=== PATIENT | male | born 1940 | race Caucasian/White ===

== ENCOUNTER 2020-02-05 13:13 | Outpatient (REF) | payer MEDICARE, SELFPAY ==
--- NOTE | 2020-02-05 | US_ITS ---
EXAMINATION: RIGHT and LEFT LOWER EXTREMITY VENOUS ULTRASOUND (Reflux Exam) CLINICAL INDICATION: leg pain and varicose veins. COMPARISON: None. TECHNIQUE: Color flow triplex imaging and compression Doppler was performed to evaluate both the deep and the superficial systems bilaterally. To evaluate the superficial system, the examination was performed in the upright position. Color-flow Doppler ultrasound and compression ultrasound were utilized. In addition, maneuvers were utilized to demonstrate reflux. FINDINGS: 1. DEEP VENOUS ULTRASOUND OF THE RIGHT LOWER EXTREMITY: Respiratory variation, normal compression and augmented flow are noted in the right common femoral vein as well as the right popliteal vein and there is no evidence of deep venous thrombosis at these locations. There is no evidence of reflux in the deep system in either the common femoral vein or the popliteal vein. There is no evidence of a Moss's cyst. 2. SUPERFICIAL ULTRASOUND WITH DOPPLER OF RIGHT LOWER EXTREMITY: The right great saphenous vein at the saphenofemoral junction measures 7 mm, at the mid thigh 2 mm, [id number] 2 mm, [id number] 2 mm, at mid calf 1 mm and at the ankle measures 4 mm. There is right greater saphenous vein reflux measuring greater than 3.5 seconds in the proximal thigh, 1.5 seconds above the knee and greater than 3.5 seconds at the ankle. There is an accessory lateral greater saphenous vein that measures 2 mm and does not demonstrate reflux. The right small saphenous vein measures 2-3 mm and shows no reflux. There is a audiometric technician in the mid calf that measures 3 mm and demonstrates 1.7 second reflux. There is a varicosity in the proximal 5 that measures 4 mm and demonstrates greater than 3.5 second reflux. There is a varicosity in the proximal calf that measures 7 mm and demonstrates 2.2 seconds reflux. 3. DEEP VENOUS ULTRASOUND OF THE LEFT LOWER EXTREMITY: Respiratory variation, normal compression and augmented flow are noted in the left common femoral vein as well as the left popliteal vein and there is no evidence of deep venous thrombosis at these locations. There is no evidence of reflux in the deep system in either the common femoral vein or the popliteal vein. . There is no evidence of a Moss's cyst. 4. SUPERFICIAL ULTRASOUND WITH DOPPLER OF LEFT LOWER EXTREMITY: Left great saphenous vein at the saphenofemoral junction measures 6 mm, at the mid thigh 5 mm, [id number]-khj-[id number] 4 mm, [id number]-[id number] 4 mm, at mid calf 3 mm and at the ankle measures 4 mm. There is left greater saphenous vein reflux below the knee measuring 3.4 seconds. There is an accessory lateral greater saphenous vein measuring 2 to 4 mm. This demonstrates greater than 3 seconds reflux in the mid thigh. The left small saphenous vein measures 2-4 mm and shows no reflux. There is a audiometric technician in the distal calf that measures 2 mm and demonstrates 3 second reflux. There is a left Moss's cyst that measures 2.2 x 1.8 x 2 cm. IMPRESSION: 1. No evidence of reflux or thrombus in the common femoral veins or popliteal veins bilaterally. 2. Bilateral greater saphenous vein reflux, right greater than left. Small left Moss's cyst.
== END 2020-02-05 13:14 | disposition home or self-care (01) ==
LOC: HO.US 13:13
PROVIDERS: PCP Internal Medicine; Visit Provider Internal Medicine
DX: M79.606 Pain in leg, unspecified (principal); R60.0 Localized edema
CPT/HCPCS: 93970

== ENCOUNTER → 2020-05-29 13:25 | Outpatient (BNVA) | payer MEDICARE, SELFPAY | PROVIDERS: PCP Internal Medicine; Visit Provider Surgery Vascular Surgery | DX: I83.11 Varicose veins of right lower extremity with inflammation (principal) | CPT/HCPCS: 99202 ==

== ENCOUNTER 2020-07-08 09:04 | Emergency (ER) | payer MEDICARE, SELFPAY ==
--- NOTE | ~2020-07-08 | CT_ITS ---
EXAMINATION: CT HEAD WITHOUT CONTRAST CLINICAL INFORMATION: Near syncope. Head trauma. COMPARISON: Previous head CT October 2017 TECHNIQUE: Contiguous axial imaging was performed from the skull base to vertex without intravenous administration of contrast. This CT examination was performed using dose optimization techniques as appropriate, variously including the following: *Automated exposure control *Adjustment of mA and/or kV according to patient size (this includes techniques or standardized protocols for targeted exams where dose is matched to indication/reason for exam; i.e. extremities or head) *Use of iterative reconstruction technique DLP: 674+718 mGy-cm FINDINGS: Initial images are limited due to motion artifact. There is no evidence of an extra-axial collection. There is no evidence of intra or extra-axial hemorrhage. The ventricles and extra-axial CSF spaces are prominent suggestive of mild generalized atrophy. There is nonspecific periventricular white matter disease. No mass, mass effect or infarct is seen. No skull fracture is seen. There are inflammatory changes in the right frontal and ethmoid sinuses. Visualized paranasal sinuses, mastoid air cells and total ears are otherwise clear. CT/CT head/brain wo con IMPRESSION: No acute findings. Mild generalized atrophy and nonspecific periventricular white matter disease.
--- NOTE | ~2020-07-08 | XR_ITS ---
EXAMINATION: XR RIBS, LEFT CLINICAL INFORMATION: Pain post fall COMPARISON: Previous chest x-ray most recent December 2019 TECHNIQUE: 3 views of the left ribs were obtained. FINDINGS: The cardiac and mediastinal contours are normal. There is a 5 mm dense nodule in the right lower lobe probably representing a calcified granuloma that is stable. The lungs are otherwise clear. There is no pleural effusion or pneumothorax. There is a recent appearing left anterior 10th rib fracture. XR/XR ribs LT min 3V w CXR1V IMPRESSION: No evidence for acute disease in the chest. Left anterior 10th rib fracture.
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
[2020-07-08 09:08] VITALS: BP 150/56; PULSE 58; RESP 17; TEMP 36.7; O2SAT 98; BMI 33.5
--- NOTE | 2020-07-08 09:12 | ECG_ITS ---
Test Reason : SYNCOPE Blood Pressure : / mmHG Vent. Rate : 052 BPM Atrial Rate : 052 BPM P-R Int : 140 ms QRS Dur : 086 ms QT Int : 394 ms P-R-T Axes : 016 069 091 degrees QTc Int : 366 ms Sinus bradycardia with marked sinus arrhythmia with junctional escape complex Nonspecific T wave abnormality Abnormal ECG When compared with ECG of 19-JAN-2020 22:06, Vent. rate has decreased BY 25 BPM Non-specific change in ST segment in Inferior leads Referred By: Varinder West Electronically Signed By:ALLIE BENITEZ MD
[2020-07-08 09:21] VITALS: BP 129/63; PULSE 62
[2020-07-08 09:23] VITALS: BP 154/49; PULSE 58
[2020-07-08 09:25] VITALS: BP 157/50; PULSE 66
[2020-07-08] MEDS: 0.9 % Sodium Chloride 500 ML IV (09:41)
[2020-07-08 09:48] LABS: MANUAL DIFF FLAG NO
[2020-07-08 09:52] LABS: Basophils Absolute Auto 0.1 X10*3/uL (0.0-0.2); Basophils Percent Auto 0.7 % (0-2); Eosinophils Absolute Auto 0.6 X10*3/uL (0.0-0.4); Eosinophils Percent Auto 7.2 % (0-4); Hematocrit 42.9 % (42-52); Imm Gran Abs Auto 0.02 X10*3/uL (0.00-0.03); Imm Gran Pct Auto 0.2 % (0.0-0.4); Lymphocytes Absolute Auto 2.1 X10*3/uL (1.2-4.9); Lymphocytes Percent Auto 25.3 % (20-40); Mean Corpuscular Hemoglobin 31.5 pg (27.0-33.0); Mean Corpuscular Volume 90.1 fL (80-98); Mean Platelet Volume 11.3 fL (9.4-12.4); Monocytes Absolute Auto 0.9 X10*3/uL (0.1-1.2); Monocytes Percent Auto 11.1 % (2-11); Neutrophils Absolute Auto 4.6 X10*3/uL (2.0-8.3); Neutrophils Percent Auto 55.5 % (45-73); Platelet Count 212 X10*3/uL (160-400); Red Blood Count 4.76 X10*6/uL (4.60-5.80); Red Cell Distribution Width 13.4 % (11.0-16.0); White Blood Count 8.4 X10*3/uL (4.8-10.8)
[2020-07-08 10:07] LABS: COVID-19 Test Negative (Negative)
[2020-07-08 10:14] LABS: INTERNATIONAL NORM RATIO 1.1 (0.9-1.1); Prothrombin Time 12.6 SEC (10.8-13.0)
[2020-07-08 10:17] LABS: Partial Thromboplastin Time 31.9 SEC (24.1-38.0)
[2020-07-08 10:22] LABS: Alanine Aminotransferase 25 U/L (0-40); Albumin Level 4.1 g/dL (3.5-5.0); Alkaline Phosphatase 96 U/L (39-117); Anion Gap 8 (12-20); Aspartate Amino Transferase 29 U/L (5-37); Bilirubin Total 0.9 mg/dL (0.0-1.0); Blood Urea Nitrogen 14 mg/dL (9-16); Calcium 9.2 mg/dL (8.4-10.2); Carbon Dioxide 31 mmol/L (22-29); Chloride 104 mmol/L (96-108); Creatinine Clr Calc Pharmacy 61.1; Estimated Glomerular Filt Rate > 60; Glucose Random 130 mg/dL (60-115); Potassium 4.4 mmol/L (3.3-5.1); Sodium 139 mmol/L (135-145); Total Protein 6.9 g/dL (6.5-8.0); Troponin-I High Sensitivity 7.5 ng/L (<3.5-35.0)
--- NOTE | 2020-07-08 11:05 | ED.FALL ---
HPI - Fall General Chief Complaint: Fall <Varinder West NP - Last Filed: 08/07/20 13:47> Stated Complaint: L FLANK PAIN S/P FALL,-LOC,+COLLAR <Varinder West NP - Last Filed: 08/07/20 13:47> Time Seen by Provider: 07/08/20 09:12 <Varinder West NP - Last Filed: 08/07/20 13:47> Source: EMS <Varinder West NP - Last Filed: 08/07/20 13:47> Mode of arrival: EMS <Varinder West NP - Last Filed: 08/07/20 13:47> Limitations: language barrier <Varinder West NP - Last Filed: 08/07/20 13:47> History of Present Illness HPI Narrative: This is pleasant primarily Citizen Of [place]-speaking 80-year-old male who is also hard of hearing he has a past medical history that is significant for prostate CA status post status post treatment, hypertension, hyperlipidemia, and asthma who presents via EMS with complaint of pain to left side lateral rib area from fall that he describes as he was going to stand up from seated position in a chair and did so suddenly and felt a ?little dizzy? and lost his footing and fell onto his left side hitting his left-sided lateral rib area on a bar high stool and falling forward onto his knees. States he has some issues with balance in the past and sometimes he feels dizzy. He states right now primarily he has pain on left lateral side of the chest where he hit the bar stool. And he also hit his head on the wall next stool before he fell onto his knees but denies any headache. Denies any chest pain or shortness of breath otherwise. No recent illness. Denies any lower extremity pain or injury. <Varinder West NP - Last Filed: 08/07/20 13:47> MD complaint: fall <Varinder West NP - Last Filed: 08/07/20 13:47> Onset (ago): minute(s) <Varinder West NP - Last Filed: 08/07/20 13:47> Fall from: standing <Varinder West NP - Last Filed: 08/07/20 13:47> Fall witnessed: yes, by family <Varinder West NP - Last Filed: 08/07/20 13:47> Place fall occurred: home <Varinder West NP - Last Filed: 08/07/20 13:47> Loss of consciousness: none <Varinder West NP - Last Filed: 08/07/20 13:47> Prolonged down time: no <Varinder West NP - Last Filed: 08/07/20 13:47> Symptoms prior to fall: dizziness <Varinder West NP - Last Filed: 08/07/20 13:47> Context: tripped/slipped <Varinder West NP - Last Filed: 08/07/20 13:47> Location of injury: chest <Varinder West NP - Last Filed: 08/07/20 13:47> Related Data Home Medications: Home Medications Medication Instructions Recorded Confirmed acetaminophen 650 mg 1,300 mg PO Q8H PRN 05/29/20 07/08/20 tablet,extended release albuterol sulfate 90 mcg/actuation 2 puff PO Q4-6H PRN 05/29/20 07/08/20 aerosol inhaler aspirin 81 mg tablet,delayed 81 mg PO DAILY 05/29/20 07/08/20 release cholecalciferol (vitamin D3) 25 25 mcg PO DAILY 05/29/20 07/08/20 mcg (1,000 unit) tablet fluticasone propionate 44 2 puff PO BID 05/29/20 07/08/20 mcg/actuation HFA aerosol inhaler fluticasone propionate 50 2 spray INTRANASAL DAILY 05/29/20 07/08/20 mcg/actuation nasal spray,suspension hydrochlorothiazide 12.5 mg tablet 12.5 mg PO DAILY 05/29/20 07/08/20 ipratropium 20 mcg-albuterol 100 1 puff PO QID 05/29/20 07/08/20 mcg/actuation mist for inhalation montelukast 10 mg tablet 10 mg PO BEDTIME 05/29/20 07/08/20 albuterol sulfate 1 amp INHALATION Q6H PRN 07/08/20 07/08/20 amlodipine 2.5 mg PO DAILY 07/08/20 07/08/20 atorvastatin 20 mg PO BEDTIME 07/08/20 07/08/20 Previous Rx's Medication Instructions Recorded acetaminophen [Tylenol] 650 mg PO Q6H PRN #14 tab 07/08/20 lidocaine 1 patch TOPICAL Q24H PRN #15 ea 07/08/20 <Varinder West NP - Last Filed: 08/07/20 13:47> Allergies/Adverse Reactions: Allergies Allergy/AdvReac Type Severity Reaction Status Date / Time No Known Allergies Allergy Unknown UNKNOWN Verified 05/29/20 13:35 [NO KNOWN ALLERGIES] <Varinder West NP - Last Filed: 08/07/20 13:47> Review of Systems Review of Systems: Constitutional: No Weight loss, No Fever, No Chills, No Night Sweats, No Fatigue, No Malaise ENT/Mouth: No Hearing loss, No Ear Pain, No Nasal Congestion, No Sinus Pain, No Hoarseness, No sore throat, No Rhinorrhea, No Swallowing Difficulty Eyes: No Eye Pain, No Swelling, No Redness, No Foreign Body, No Discharge, No Vision Changes Cardiovascular: No Chest Pain, No SOB, No Dyspnea on Exertion, No Orthopnea, No Edema, No Palpitations Respiratory: No Cough, No Sputum, No Wheezing, No Smoke Exposure, No Dyspnea Gastrointestinal: No Nausea, No Vomiting, No Diarrhea, No Constipation, No abdominal Pain, No Hematochezia, No Melena Genitourinary: No Dysuria, No Urinary Frequency, No Hematuria, No Urinary Incontinence, No Urgency, No Flank Pain, No Urinary Flow Changes, No Hesitancy Musculoskeletal: No joint pain, No Myalgias, No Joint Swelling, left-sided rib Skin: No Skin Lesions, No rash Neuro: No Weakness, No Numbness, No Paresthesias, No Loss of Consciousness, No Dizziness, No Headache Psych: No Social Issues Heme/Lymph: No Bruising, No Bleeding,No Lymphadenopathy Endocrine: No Polyuria, No Polydipsia, No Temperature Intolerance <Varinder West NP - Last Filed: 08/07/20 13:47> Yes all other systems are reviewed and are negative <Varinder West NP - Last Filed: 08/07/20 13:47> [facility] Past Medical History Medical History: Medical History (Updated 07/09/20 @ 00:01 by Kush Osuna) Asthma COPD (chronic obstructive pulmonary disease) High cholesterol Hyperlipidemia Hypertension Prostate CA <Varinder West NP - Last Filed: 08/07/20 13:47> Social History Social History: Social History (Updated 05/29/20 @ 13:44 by BETSY Lion) Alcohol intake: unknown Smoking Status: Current every day smoker Tobacco Type: Cigarette <Varinder West NP - Last Filed: 08/07/20 13:47> Physical Exam Vital Signs: Vital Signs: Last Vital Signs Temp 98.0 F 07/08/20 09:08 Pulse 56 07/08/20 12:29 Resp 07/08/20 12:29 BP 140/66 H 07/08/20 12:29 Pulse Ox 97 07/08/20 12:29 Body Mass Index 33.5 Reviewed <Varinder West NP - Last Filed: 08/07/20 13:47> Vital Signs: Last Vital Signs Temp 98.0 F 07/08/20 09:08 Pulse 56 07/08/20 12:29 Resp 07/08/20 12:29 BP 140/66 H 07/08/20 12:29 Pulse Ox 97 07/08/20 12:29 Body Mass Index 33.5 <Ramesh Freitas MD - Last Filed: 08/16/20 07:21> Const: Other: States at rest he is fine uncomfortable with movement and palpation to left-sided chest. <Varinder West NP - Last Filed: 08/07/20 13:47> General: cooperative; No acute distress or intoxicated appearing <Varinder West NP - Last Filed: 08/07/20 13:47> Nutritional Appearance: average body habitus <Varinder West NP - Last Filed: 08/07/20 13:47> Orientation/consciousness: patient oriented x3 <Varinder West NP - Last Filed: 08/07/20 13:47> HENMT: Head: Yes normal to inspection <Varinder West NP - Last Filed: 08/07/20 13:47> Ears: hearing grossly normal bilaterally <Varinder West NP - Last Filed: 08/07/20 13:47> Eyes: General: appearance normal, both eyes and all related structures <Varinder West NP - Last Filed: 08/07/20 13:47> Visual Robles: normal visual robles by confrontation <Varinder West NP - Last Filed: 08/07/20 13:47> Neck: Neck: Yes normal visual inspection, No positive Brudzinski's sign, No positive Kernig's sign and No tender <[facility] DOG BEHAVIORIST - Last Filed: 08/07/20 13:47> Thyroid: Thyroid normal <[facility] DOG BEHAVIORIST - Last Filed: 08/07/20 13:47> Chest: Chest palpation & inspection: normal inspection of the chest <[facility] DOG BEHAVIORIST - Last Filed: 08/07/20 13:47> Resp: Effort & Inspection: normal respiratory effort <[facility] DOG BEHAVIORIST - Last Filed: 08/07/20 13:47> Cardio: Jugular venous distension: no JVD <[facility] DOG BEHAVIORIST - Last Filed: 08/07/20 13:47> GI: Inspection: Yes normal to inspection <[facility] DOG BEHAVIORIST - Last Filed: 08/07/20 13:47> Percussion: Yes normal to percussion <[facility] DOG BEHAVIORIST - Last Filed: 08/07/20 13:47> Auscultation: normal bowel sounds <[facility] DOG BEHAVIORIST - Last Filed: 08/07/20 13:47> : General: Yes no CVA tenderness <[facility] DOG BEHAVIORIST - Last Filed: 08/07/20 13:47> Back/Spine/Pelvis: Back: no CVA tenderness <[facility] DOG BEHAVIORIST - Last Filed: 08/07/20 13:47> Skin: General skin exam: no rashes or lesions noted <[facility], DOG BEHAVIORIST - Last Filed: 08/07/20 13:47> Neuro: General: patient oriented x3 <[facility] DOG BEHAVIORIST - Last Filed: 08/07/20 13:47> Extrem: General: Yes normal to inspection <[facility], DOG BEHAVIORIST - Last Filed: 08/07/20 13:47> NIH Stroke Scale Internal: Initial- Upon Arrival <[facility] DOG BEHAVIORIST - Last Filed: 08/07/20 13:47> Level of Consciousness: Alert <[facility] DOG BEHAVIORIST - Last Filed: 08/07/20 13:47> Level of Consciousness Questions: Answers both questions correctly <[facility] DOG BEHAVIORIST - Last Filed: 08/07/20 13:47> Level of Consciousness Commands: Performs both tasks correctly <Varinder West, DOG BEHAVIORIST - Last Filed: 08/07/20 13:47> Best Gaze: Normal <Var[place] West, DOG BEHAVIORIST - Last Filed: 08/07/20 13:47> Visual: No visual loss <Varinder West, DOG BEHAVIORIST - Last Filed: 08/07/20 13:47> Facial Palsy: Normal <Varinder West, DOG BEHAVIORIST - Last Filed: 08/07/20 13:47> Motor Arm (Right): No drift <Varinder West, DOG BEHAVIORIST - Last Filed: 08/07/20 13:47> Motor Arm (Left): No drift <Varinder West, DOG BEHAVIORIST - Last Filed: 08/07/20 13:47> Motor Leg (Right): No drift <Varinder West, DOG BEHAVIORIST - Last Filed: 08/07/20 13:47> Motor Leg (Left): No drift <Varinder West, DOG BEHAVIORIST - Last Filed: 08/07/20 13:47> Limb Ataxia: Absent <Varinder West, DOG BEHAVIORIST - Last Filed: 08/07/20 13:47> Sensory: Normal <Varindervir[place]ia Jenkinsan, DOG BEHAVIORIST - Last Filed: 08/07/20 13:47> Best Language: No aphasia <Var[place] Jenkinsanthony DOG BEHAVIORIST - Last Filed: 08/07/20 13:47> Dysarthia: Normal <Varinder[place] Jenkinsanthony DOG BEHAVIORIST - Last Filed: 08/07/20 13:47> Extinction and Inattention: No abnormality <Varinder[place] Jenkinsanthony DOG BEHAVIORIST - Last Filed: 08/07/20 13:47> Score: 0 <Varindervir[place]ia Jenkinsan, DOG BEHAVIORIST - Last Filed: 08/07/20 13:47> Course Course Course Narrative: I have reviewed the chart <Ramesh Freitas MD - Last Filed: 08/16/20 07:21> Reevaluation(s) Reevaluation #1: Recommended for admission refusing to stay. and daughter at bedside trying to convince him however he does not want to. Ambulatory with slow but steady gait. Tried several times to encourage him to stay given his comorbidities, complaint and findings. Advised to return if he changes mind. <Varinder Jenna DOG BEHAVIORIST - Last Filed: 08/07/20 13:47> MDM - Fall Lab Data Result diagrams: : 07/08/20 09:38 07/08/20 09:38 <Varinder West NP - Last Filed: 08/07/20 13:47> Labs: Lab Results 07/08/20 07/08/20 07/08/20 Range/Units 09:32 09:38 09:38 WBC 8.4 (4.8-10.8) X10*3/uL RBC 4.76 (4.60-5.80) X10*6/uL Hgb 15.0 (14.0-18.0) g/dl Hct 42.9 (42-52) % MCV 90.1 (80-98) fL MCH 31.5 (27.0-33.0) pg MCHC 35.0 (31.0-36.0) g/dl RDW 13.4 (11.0-16.0) % Plt Count 212 (160-400) X10*3/uL MPV 11.3 (9.4-12.4) fL Immature Gran % (Auto) 0.2 (0.0-0.4) % Neut % (Auto) 55.5 (45-73) % Lymph % (Auto) 25.3 (20-40) % [place] % (Auto) 11.1 H (2-11) % Eos % (Auto) 7.2 H (0-4) % Baso % (Auto) 0.7 (0-2) % Lymph # (Auto) 2.1 (1.2-4.9) X10*3/uL [place] # (Auto) 0.9 (0.1-1.2) X10*3/uL Eos # (Auto) 0.6 H (0.0-0.4) X10*3/uL Baso # (Auto) 0.1 (0.0-0.2) X10*3/uL Abs Immat Gran (auto) 0.02 (0.00-0.03) X10*3/uL Absolute Neuts (auto) 4.6 (2.0-8.3) X10*3/uL Absolute Nucleated RBC 0.000 (0.0-0.012) X10*3/uL Nucleated RBC % (auto) 0.0 (0.0-0.2) /100WBC PT 12.6 (10.8-13.0) SEC INR 1.1 (0.9-1.1) APTT 31.9 (24.1-38.0) SEC Sodium (135-145) mmol/L Potassium (3.3-5.1) mmol/L Chloride (96-108) mmol/L Carbon Dioxide (22-29) mmol/L Anion Gap (12-20) BUN (9-16) mg/dL Creatinine (0.5-1.4) mg/dL Estim Creat Clear Calc Estimated GFR Random Glucose (60-115) mg/dL Calcium (8.4-10.2) mg/dL Total Bilirubin (0.0-1.0) mg/dL AST (5-37) U/L ALT (0-40) U/L Alkaline Phosphatase (39-117) U/L Troponin I High Sens (<3.5-35.0) ng/L Total Protein (6.5-8.0) g/dL Albumin (3.5-5.0) g/dL Urine Color Urine Appearance Urine pH (5.0-8.0) Ur Specific Marion (1.005-1.025) Urine Protein (NEG-TRACE) MG/DL Urine Glucose (UA) (NEG) MG/DL Urine Ketones (NEG) MG/DL Urine Blood (NEG) Urine Nitrite (NEG) Ur Leukocyte Esterase (NEG) Urine RBC (0) /HPF Urine WBC (0-4) /HPF Ur Squamous Epith Cells /LPF Urine Bacteria /LPF COVID-19 ([facility]) Negative (Negative) COVID-19 Clin Com See Note 07/08/20 07/08/20 07/08/20 Range/Units 09:38 09:38 12:31 WBC (4.8-10.8) X10*3/uL RBC (4.60-5.80) X10*6/uL Hgb (14.0-18.0) g/dl Hct (42-52) % MCV (80-98) fL MCH (27.0-33.0) pg MCHC (31.0-36.0) g/dl RDW (11.0-16.0) % Plt Count (160-400) X10*3/uL MPV (9.4-12.4) fL Immature Gran % (Auto) (0.0-0.4) % Neut % (Auto) (45-73) % Lymph % (Auto) (20-40) % [place] % (Auto) (2-11) % Eos % (Auto) (0-4) % Baso % (Auto) (0-2) % Lymph # (Auto) (1.2-4.9) X10*3/uL [place] # (Auto) (0.1-1.2) X10*3/uL Eos # (Auto) (0.0-0.4) X10*3/uL Baso # (Auto) (0.0-0.2) X10*3/uL Abs Immat Gran (auto) (0.00-0.03) X10*3/uL Absolute Neuts (auto) (2.0-8.3) X10*3/uL Absolute Nucleated RBC (0.0-0.012) X10*3/uL Nucleated RBC % (auto) (0.0-0.2) /100WBC PT (10.8-13.0) SEC INR (0.9-1.1) APTT (24.1-38.0) SEC Sodium 139 (135-145) mmol/L Potassium 4.4 (3.3-5.1) mmol/L Chloride 104 (96-108) mmol/L Carbon Dioxide 31 H (22-29) mmol/L Anion Gap 8 L (12-20) BUN 14 (9-16) mg/dL Creatinine 1.07 (0.5-1.4) mg/dL Estim Creat Clear Calc 61.1 Estimated GFR > 60 Random Glucose 130 H (60-115) mg/dL Calcium 9.2 (8.4-10.2) mg/dL Total Bilirubin 0.9 (0.0-1.0) mg/dL AST 29 (5-37) U/L ALT 25 (0-40) U/L Alkaline Phosphatase 96 (39-117) U/L Troponin I High Sens 7.5 (<3.5-35.0) ng/L Total Protein 6.9 (6.5-8.0) g/dL Albumin 4.1 (3.5-5.0) g/dL Urine Color YELLOW Urine Appearance CLEAR Urine pH 6.5 (5.0-8.0) Ur Specific Marion <= 1.005 (1.005-1.025) Urine Protein NEG (NEG-TRACE) MG/DL Urine Glucose (UA) NEG (NEG) MG/DL Urine Ketones NEG (NEG) MG/DL Urine Blood TRACE (NEG) Urine Nitrite NEG (NEG) Ur Leukocyte Esterase NEG (NEG) Urine RBC 1-4 (0) /HPF Urine WBC 0 (0-4) /HPF Ur Squamous Epith Cells NONE /LPF Urine Bacteria NONE /LPF COVID-19 ([facility]) (Negative) COVID-19 Clin Com 07/08/20 Range/Units 13:55 WBC (4.8-10.8) X10*3/uL RBC (4.60-5.80) X10*6/uL Hgb (14.0-18.0) g/dl Hct (42-52) % MCV (80-98) fL MCH (27.0-33.0) pg MCHC (31.0-36.0) g/dl RDW (11.0-16.0) % Plt Count (160-400) X10*3/uL MPV (9.4-12.4) fL Immature Gran % (Auto) (0.0-0.4) % Neut % (Auto) (45-73) % Lymph % (Auto) (20-40) % [place] % (Auto) (2-11) % Eos % (Auto) (0-4) % Baso % (Auto) (0-2) % Lymph # (Auto) (1.2-4.9) X10*3/uL [place] # (Auto) (0.1-1.2) X10*3/uL Eos # (Auto) (0.0-0.4) X10*3/uL Baso # (Auto) (0.0-0.2) X10*3/uL Abs Immat Gran (auto) (0.00-0.03) X10*3/uL Absolute Neuts (auto) (2.0-8.3) X10*3/uL Absolute Nucleated RBC (0.0-0.012) X10*3/uL Nucleated RBC % (auto) (0.0-0.2) /100WBC PT (10.8-13.0) SEC INR (0.9-1.1) APTT (24.1-38.0) SEC Sodium (135-145) mmol/L Potassium (3.3-5.1) mmol/L Chloride (96-108) mmol/L Carbon Dioxide (22-29) mmol/L Anion Gap (12-20) BUN (9-16) mg/dL Creatinine (0.5-1.4) mg/dL Estim Creat Clear Calc Estimated GFR Random Glucose (60-115) mg/dL Calcium (8.4-10.2) mg/dL Total Bilirubin (0.0-1.0) mg/dL AST (5-37) U/L ALT (0-40) U/L Alkaline Phosphatase (39-117) U/L Troponin I High Sens 8.7 (<3.5-35.0) ng/L Total Protein (6.5-8.0) g/dL Albumin (3.5-5.0) g/dL Urine Color Urine Appearance Urine pH (5.0-8.0) Ur Specific Marion (1.005-1.025) Urine Protein (NEG-TRACE) MG/DL Urine Glucose (UA) (NEG) MG/DL Urine Ketones (NEG) MG/DL Urine Blood (NEG) Urine Nitrite (NEG) Ur Leukocyte Esterase (NEG) Urine RBC (0) /HPF Urine WBC (0-4) /HPF Ur Squamous Epith Cells /LPF Urine Bacteria /LPF COVID-19 ([facility]) (Negative) COVID-19 Clin Com <Varinder West NP - Last Filed: 08/07/20 13:47> Lab Results 07/08/20 07/08/20 07/08/20 Range/Units 09:32 09:38 09:38 WBC 8.4 (4.8-10.8) X10*3/uL RBC 4.76 (4.60-5.80) X10*6/uL Hgb 15.0 (14.0-18.0) g/dl Hct 42.9 (42-52) % MCV 90.1 (80-98) fL MCH 31.5 (27.0-33.0) pg MCHC 35.0 (31.0-36.0) g/dl RDW 13.4 (11.0-16.0) % Plt Count 212 (160-400) X10*3/uL MPV 11.3 (9.4-12.4) fL Immature Gran % (Auto) 0.2 (0.0-0.4) % Neut % (Auto) 55.5 (45-73) % Lymph % (Auto) 25.3 (20-40) % [place] % (Auto) 11.1 H (2-11) % Eos % (Auto) 7.2 H (0-4) % Baso % (Auto) 0.7 (0-2) % Lymph # (Auto) 2.1 (1.2-4.9) X10*3/uL [place] # (Auto) 0.9 (0.1-1.2) X10*3/uL Eos # (Auto) 0.6 H (0.0-0.4) X10*3/uL Baso # (Auto) 0.1 (0.0-0.2) X10*3/uL Abs Immat Gran (auto) 0.02 (0.00-0.03) X10*3/uL Absolute Neuts (auto) 4.6 (2.0-8.3) X10*3/uL Absolute Nucleated RBC 0.000 (0.0-0.012) X10*3/uL Nucleated RBC % (auto) 0.0 (0.0-0.2) /100WBC PT 12.6 (10.8-13.0) SEC INR 1.1 (0.9-1.1) APTT 31.9 (24.1-38.0) SEC Sodium (135-145) mmol/L Potassium (3.3-5.1) mmol/L Chloride (96-108) mmol/L Carbon Dioxide (22-29) mmol/L Anion Gap (12-20) BUN (9-16) mg/dL Creatinine (0.5-1.4) mg/dL Estim Creat Clear Calc Estimated GFR Random Glucose (60-115) mg/dL Calcium (8.4-10.2) mg/dL Total Bilirubin (0.0-1.0) mg/dL AST (5-37) U/L ALT (0-40) U/L Alkaline Phosphatase (39-117) U/L Troponin I High Sens (<3.5-35.0) ng/L Total Protein (6.5-8.0) g/dL Albumin (3.5-5.0) g/dL Urine Color Urine Appearance Urine pH (5.0-8.0) Ur Specific Marion (1.005-1.025) Urine Protein (NEG-TRACE) MG/DL Urine Glucose (UA) (NEG) MG/DL Urine Ketones (NEG) MG/DL Urine Blood (NEG) Urine Nitrite (NEG) Ur Leukocyte Esterase (NEG) Urine RBC (0) /HPF Urine WBC (0-4) /HPF Ur Squamous Epith Cells /LPF Urine Bacteria /LPF COVID-19 ([facility]) Negative (Negative) COVID-19 Clin Com See Note 07/08/20 07/08/20 07/08/20 Range/Units 09:38 09:38 12:31 WBC (4.8-10.8) X10*3/uL RBC (4.60-5.80) X10*6/uL Hgb (14.0-18.0) g/dl Hct (42-52) % MCV (80-98) fL MCH (27.0-33.0) pg MCHC (31.0-36.0) g/dl RDW (11.0-16.0) % Plt Count (160-400) X10*3/uL MPV (9.4-12.4) fL Immature Gran % (Auto) (0.0-0.4) % Neut % (Auto) (45-73) % Lymph % (Auto) (20-40) % [place] % (Auto) (2-11) % Eos % (Auto) (0-4) % Baso % (Auto) (0-2) % Lymph # (Auto) (1.2-4.9) X10*3/uL [place] # (Auto) (0.1-1.2) X10*3/uL Eos # (Auto) (0.0-0.4) X10*3/uL Baso # (Auto) (0.0-0.2) X10*3/uL Abs Immat Gran (auto) (0.00-0.03) X10*3/uL Absolute Neuts (auto) (2.0-8.3) X10*3/uL Absolute Nucleated RBC (0.0-0.012) X10*3/uL Nucleated RBC % (auto) (0.0-0.2) /100WBC PT (10.8-13.0) SEC INR (0.9-1.1) APTT (24.1-38.0) SEC Sodium 139 (135-145) mmol/L Potassium 4.4 (3.3-5.1) mmol/L Chloride 104 (96-108) mmol/L Carbon Dioxide 31 H (22-29) mmol/L Anion Gap 8 L (12-20) BUN 14 (9-16) mg/dL Creatinine 1.07 (0.5-1.4) mg/dL Estim Creat Clear Calc 61.1 Estimated GFR > 60 Random Glucose 130 H (60-115) mg/dL Calcium 9.2 (8.4-10.2) mg/dL Total Bilirubin 0.9 (0.0-1.0) mg/dL AST 29 (5-37) U/L ALT 25 (0-40) U/L Alkaline Phosphatase 96 (39-117) U/L Troponin I High Sens 7.5 (<3.5-35.0) ng/L Total Protein 6.9 (6.5-8.0) g/dL Albumin 4.1 (3.5-5.0) g/dL Urine Color YELLOW Urine Appearance CLEAR Urine pH 6.5 (5.0-8.0) Ur Specific Marion <= 1.005 (1.005-1.025) Urine Protein NEG (NEG-TRACE) MG/DL Urine Glucose (UA) NEG (NEG) MG/DL Urine Ketones NEG (NEG) MG/DL Urine Blood TRACE (NEG) Urine Nitrite NEG (NEG) Ur Leukocyte Esterase NEG (NEG) Urine RBC 1-4 (0) /HPF Urine WBC 0 (0-4) /HPF Ur Squamous Epith Cells NONE /LPF Urine Bacteria NONE /LPF COVID-19 ([facility]) (Negative) COVID-19 Clin Com 07/08/20 Range/Units 13:55 WBC (4.8-10.8) X10*3/uL RBC (4.60-5.80) X10*6/uL Hgb (14.0-18.0) g/dl Hct (42-52) % MCV (80-98) fL MCH (27.0-33.0) pg MCHC (31.0-36.0) g/dl RDW (11.0-16.0) % Plt Count (160-400) X10*3/uL MPV (9.4-12.4) fL Immature Gran % (Auto) (0.0-0.4) % Neut % (Auto) (45-73) % Lymph % (Auto) (20-40) % [place] % (Auto) (2-11) % Eos % (Auto) (0-4) % Baso % (Auto) (0-2) % Lymph # (Auto) (1.2-4.9) X10*3/uL [place] # (Auto) (0.1-1.2) X10*3/uL Eos # (Auto) (0.0-0.4) X10*3/uL Baso # (Auto) (0.0-0.2) X10*3/uL Abs Immat Gran (auto) (0.00-0.03) X10*3/uL Absolute Neuts (auto) (2.0-8.3) X10*3/uL Absolute Nucleated RBC (0.0-0.012) X10*3/uL Nucleated RBC % (auto) (0.0-0.2) /100WBC PT (10.8-13.0) SEC INR (0.9-1.1) APTT (24.1-38.0) SEC Sodium (135-145) mmol/L Potassium (3.3-5.1) mmol/L Chloride (96-108) mmol/L Carbon Dioxide (22-29) mmol/L Anion Gap (12-20) BUN (9-16) mg/dL Creatinine (0.5-1.4) mg/dL Estim Creat Clear Calc Estimated GFR Random Glucose (60-115) mg/dL Calcium (8.4-10.2) mg/dL Total Bilirubin (0.0-1.0) mg/dL AST (5-37) U/L ALT (0-40) U/L Alkaline Phosphatase (39-117) U/L Troponin I High Sens 8.7 (<3.5-35.0) ng/L Total Protein (6.5-8.0) g/dL Albumin (3.5-5.0) g/dL Urine Color Urine Appearance Urine pH (5.0-8.0) Ur Specific [place] (1.005-1.025) Urine Protein (NEG-TRACE) MG/DL Urine Glucose (UA) (NEG) MG/DL Urine Ketones (NEG) MG/DL Urine Blood (NEG) Urine Nitrite (NEG) Ur Leukocyte Esterase (NEG) Urine RBC (0) /HPF Urine WBC (0-4) /HPF Ur Squamous Epith Cells /LPF Urine Bacteria /LPF COVID-19 ([facility]) (Negative) COVID-19 Clin Com <Ramesh Freitas MD - Last Filed: 08/16/20 07:21> Discharge Plan Discharge Clinical Impression: Left rib fracture, Fall, Postural dizziness with near syncope <Varinder West NP - Last Filed: 08/07/20 13:47> Patient Disposition: Home, Self-Care <Varinder West NP - Last Filed: 08/07/20 13:47> Instructions: Rib Fracture (ED), Fall Prevention for Older Adults (ED), Near Syncope (ED) <Varinder West NP - Last Filed: 08/07/20 13:47> Prescriptions: New lidocaine 4 % adhesive patch,medicated 1 patch topical Q24H PRN (Reason: pain) Qty: 15 RF: 0 acetaminophen [Tylenol] 325 mg tablet 650 mg PO Q6H PRN (Reason: pain) Qty: 14 RF: 1 No Action atorvastatin 20 mg tablet 20 mg PO BEDTIME RF: 0 albuterol sulfate 2.5 mg /3 mL (0.083 %) solution for nebulization 1 amp inhalation Q6H PRN (Reason: wheezing) RF: 0 amlodipine 2.5 mg tablet 2.5 mg PO DAILY RF: 0 <Varinder West NP - Last Filed: 08/07/20 13:47> Referrals: ED Physician,Generic [Physician] - 2 days (Your primary care doctor) <Varinder West NP - Last Filed: 08/07/20 13:47> Interventions: ED Discharge Assessment Last Done: 07/08/20 16:13 <Varinder West, DOG BEHAVIORIST - Last Filed: 08/07/20 13:47> Discharge Date/Time: 07/08/20 16:14 <Varinder West NP - Last Filed: 08/07/20 13:47>
[2020-07-08 12:29] VITALS: BP 140/66; PULSE 56; RESP 19; O2SAT 97
--- NOTE | 2020-07-08 12:37 | PC.NURSE ---
Pt medicated per emar, and transported to xray.
[2020-07-08 12:49] LABS: Glucose Urine UA NEG (NEG); Leukocyte Esterase Urine NEG (NEG); Nitrite Urine NEG (NEG); PH 6.5 (5.0-8.0); Specific Gravity - Urine <= 1.005 (1.005-1.025); Urine Blood TRACE (NEG); Urine Ketones NEG (NEG); Urine Protein NEG (NEG-TRACE)
[2020-07-08 12:57] LABS: Appearance Urine CLEAR; Color Urine YELLOW
[2020-07-08 13:04] LABS: WBC Urine 0 /HPF (0-4)
[2020-07-08 14:32] LABS: Troponin-I High Sensitivity 8.7 ng/L (<3.5-35.0)
== END 2020-07-08 16:14 | disposition home or self-care (01) ==
PROVIDERS: Nurse Practitioner Primary Care; Emergency Provider Emergency Medicine
DX: S22.32XA Fracture of one rib, left side, initial encounter for closed fracture (principal); W22.03XA Walked into furniture, initial encounter; R55 Syncope and collapse; Y93.H3 Activity, building and construction; Y92.019 Unspecified place in single-family (private) house as the place of occurrence of the external cause
CPT/HCPCS: 36415; 70450; 71101; 74177; 80053; 81001; 84484; 85025; 85610; 85730; 87635; 93005; 96360; 99284; Q9967

== ENCOUNTER → 2020-10-13 08:27 | Outpatient (BNVA) | payer MEDICARE, SELFPAY | PROVIDERS: PCP Internal Medicine; Visit Provider Orthopaedic Surgery | DX: M17.0 Bilateral primary osteoarthritis of knee (principal) | CPT/HCPCS: 20610; 99212; J1100 ==

== ENCOUNTER 2020-11-14 09:48 | Outpatient (REF) | payer MEDICARE, SELFPAY ==
--- NOTE | 2020-11-14 13:01 | MHC.AU.MED ---
Medical Clearance for Hearing Instrumentation Date: 11/14/20 Patient Name: Luan Son Date of : 1940 Referring Provider: Rayne Og MD We have seen your patient on 11/14/20 and have determined that they are a candidate for amplification (See accompanying report). Specifically, they would benefit from: Hearing aid use in both ears There is a statute that addresses Medical Evaluation Requirements prior to fitting a patient with a hearing aid. According to [place] statute 265 CMR:6.03(1), (a) General. Except as provided in 265 CMR 6.03(1)(b), a implementation engineer shall not sell a hearing aid unless the prospective user has presented to the implementation engineer a written statement signed by a licensed physician that states that the patient's hearing loss has been medically evaluated and the patient may be considered a candidate for a hearing aid. The medical evaluation must have taken place within the preceding six months. Please note: Due to the [place] Statute referenced above, we cannot accept a signature other than that of a licensed physician. ETHANOL OPERATOR and PA signatures cannot be accepted. I am in agreement with the above recommendation. There is no medical contraindication for hearing instrumentation. Physician Signature Date Physician Name (Printed)
--- NOTE | 2020-11-14 13:03 | MHC.AU.ANR ---
Adult Audiological Evaluation Date of Visit: 11/14/20 Lecturer Of Portuguese Used: Irish- In Person Reason for Appointment: History of asymmetrical hearing loss. Patient suspects his hearing has decreased since his last evaluation in 2014. Patient originally received a pair of Phonak [place] 312 UZ ITCs on 01/12/2011. In 2014, the right instrument was broken beyond repair and out of warranty. It was replaced on 08/05/2014 with a Phonak Virto Q50 312. Both the right and left instruments have since been lost. Has hearing been tested previously?: Yes Previous Hearing Test Results: At this clinic on 05/29/2014- Right Ear: Borderline-normal sloping to severe sensorineural hearing loss. Left ear: Mild to profound sensorineural hearing loss. Ear History: Ear Deformity: None Reported Recent Ear Drainage: None Reported Recent Ear Pain: None Reported Previous Ear Surgery: None Reported Bothersome Tinnitus/Ringing/Noises in Ears: Medical History: Medical History: COPD, Hypertension, Osteoarthritis, Uses a walker Otoscopy: Right Ear: Unremarkable Left Ear: Unremarkable Tympanometry: Tympanometry performed due to: To assess integrity of the middle ear system Right Ear: Normal Middle Ear System (Type A) Left Ear: Normal Middle Ear System (Type A) Hearing Evaluation: Transducer(s) Used: Insert Earphones Method: Conventional Audiometry Stimuli Used: Pure Tones Right Ear: Description of Hearing: Moderate to severe sensorineural hearing loss Left Ear: Description of Hearing: Moderately-severe to profound sensorineural hearing loss Speech Recognition Threshold (SRT): Method Used: Recorded Lists Right Ear: 60 dBHL Left Ear: 80 dBHL Word Discrimination: Method: Recorded Lists Word Lists Used: Lista Bisil?bica (Irish) Right Ear: 68% at 90 dBHL Left Ear: 52% at 105 dBHL Comparison: Compared to the most recent evaluation: Thresholds have decreased bilaterally. Recommendations: Audiological re-evaluation in one year. See Hearing Aid Evaluation report for more information. Diagnosis: Primary Diagnosis: H90.3 Bilateral Sensorineural Hearing Loss Signature: Provider: Riley Wolfe, [facility]
--- NOTE | 2020-11-14 13:04 | MHC.AU.HAS ---
Hearing Aid Evaluation Date of Visit: 11/14/20 Program Management Analyst Used: Albanian- In Person Historical Information: Description of Hearing: Right: Moderate to severe sensorineural hearing loss Left: Moderately-severe to profound sensorineural hearing loss Current personal amplification information, if applicable: Previously used Phonak Shanel 312 UZ ITCs and Phonak Virto Q50-312 ITC Summary: Patient was seen today for audiological re-evaluation (see separate report for details). He previously had a pair of Phonak [place] ITCs from 2010. The right side was broken beyond repair in 2014 and replaced with a Phonak Virto Q50. He reports that both the hearing aids he was using have since been lost. He would like instruments similar to what he was using before, and prefers them to be small. Newton ITCs will be used, as their fitting range captures all current thresholds for both of his ears. Hearing Aid Prescription: Based on the individual?s shared listening needs, communication environments, dexterity, desire for connectivity, and personal preferences, the following prescription for amplification has been made: Right ear: Dry Mixer: Healthcare IT Model: Anuradha 1600 ITC Battery Size: 312 Color: Light Brown Left ear: Dry Mixer: Newton Model: Anuradha 1600 ITC Battery Size: 312 Color: Light Brown Action Taken/Action Needed: Earmold Impressions Taken Prior authorization to be requested Medical Clearance to be requested from PCP/ENT Hearing Instrument Fitting to be scheduled when materials arrive Primary Diagnosis: H90.3 Bilateral Sensorineural Hearing Loss Signature: Provider: Riley Wolfe, PEDRO-A
== END 2020-11-14 09:49 | disposition home or self-care (01) ==
LOC: HO.SH 09:48
PROVIDERS: Visit Provider Internal Medicine
DX: H90.3 Sensorineural hearing loss, bilateral (principal)
CPT/HCPCS: 92557; 92567; 92591; V5275

== ENCOUNTER → 2020-12-03 15:38 | Outpatient (BNVA) | payer MEDICARE, SELFPAY | PROVIDERS: PCP Internal Medicine; Visit Provider Internal Medicine | DX: J30.9 Allergic rhinitis, unspecified (principal); J44.9 Chronic obstructive pulmonary disease, unspecified | CPT/HCPCS: 99212 ==

== ENCOUNTER 2021-01-05 13:42 | Outpatient (REF) | payer MEDICARE, SELFPAY ==
--- NOTE | 2021-01-07 08:14 | MHC.AU.HFA ---
Hearing Instrument Fitting- Adult- Binaural Date of Visit: 01/05/21 Portrait Photographer Used: DEPUTY CLERK OF SUPERIOR COURT assisted with Burmese interpretation at patient request Hearing Instruments Dispensed: Right Ear: Supervisor Plastic Sheets: MOVE Guides Model: Anuradha 1600 [facility] Serial Number: [id number] Repair Warranty: 01/13/2024 Loss and Damage Warranty: 01/13/2024 Service Plan: 01/05/2022 Battery Size: 312 Color: Light Brown Type of Wax Guard: HearClear Left Ear: Supervisor Plastic Sheets: MOVE Guides Model: Anuradha 1600 [facility] Serial Number: [id number] Repair Warranty: 01/13/2024 Loss and Damage Warranty: 01/13/2024 Service Plan: 01/05/2022 Battery Size: 312 Color: Light Brown Type of Wax Guard: HearClear Summary of Fitting: Hearing aids fit well in the patient's ears, no feedback noted. Feedback canceller run. Verifit run and levels adjusted to better reach targets. Patient felt it was initially a little too loud. Lowered overall gain by 2 steps. Patient reported the sound was comfortable and clear. Hearing aid care and maintenance were discussed and demonstrated. His wood crafter will be the ones primarily cleaning the instruments and changing the batteries. Patient is able to get the hearing aids out independently. He needed some guidance from his DEPUTY CLERK OF SUPERIOR COURT to insert the hearing aids. They will practice at home. Recommendations: A hearing instrument follow-up was scheduled. Please call our clinic with any questions or concerns. Diagnosis Code(s): Primary Diagnosis: H90.3 Bilateral Sensorineural Hearing Loss Signature: Provider: Riley Wolfe, CCC-A
== END 2021-01-05 13:43 | disposition home or self-care (01) ==
LOC: HO.HAP 13:42
PROVIDERS: Visit Provider Internal Medicine
DX: Z46.1 Encounter for fitting and adjustment of hearing aid (principal); H90.3 Sensorineural hearing loss, bilateral
CPT/HCPCS: V5011; V5020; V5160; V5260; V5266

== ENCOUNTER 2021-03-18 09:02 | Emergency (ER) | payer MEDICARE, SELFPAY ==
[2021-03-18 09:10] VITALS: BP 163/52; PULSE 62; RESP 18; TEMP 36.8; O2SAT 99; BMI 29.2
--- NOTE | 2021-03-18 09:36 | ED_ITS ---
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 He reports that the pain gets an intermittent headaches. He reports he has not recently been swimming, has not had any recent illness, no recent trauma, no recent scuba diving and no recent plane flights. Denies any decreased hearing or drainage from the ear. He denies any fevers, chills, dizziness, neck pain/stiffness, decreased hearing, drainage from the ear, trauma to the ear, chills, sore throat, nasal nora estion/rhinorrhea, cough, recent travel or sick contacts or any other symptoms complaints or concerns at this time. MD Complaint: ear pain Location: left ear Duration: constant Severity: mild Relieving factors: nothing Exacerbating factors: palpation Discharge from ear: no Associated symptoms ear: headache Treatment prior to arrival: none Related Data Home Medications Medication Instructions Recorded Confirmed acetaminophen 650 mg 1,300 mg PO Q8H PRN 05/29/20 07/08/20 tablet,extended release albuterol sulfate 90 mcg/actuation 2 puff PO Q4-6H PRN 05/29/20 07/08/20 aerosol inhaler aspirin 81 mg tablet,delayed 81 mg PO DAILY 05/29/20 07/08/20 release cholecalciferol (vitamin D3) 25 25 mcg PO DAILY 05/29/20 07/08/20 mcg (1,000 unit) tablet fluticasone propionate 44 2 puff PO BID 05/29/20 07/08/20 mcg/actuation HFA aerosol inhaler fluticasone propionate 50 2 spray INTRANASAL DAILY 05/29/20 07/08/20 mcg/actuation nasal spray,suspension hydrochlorothiazide 12.5 mg tablet 12.5 mg PO DAILY 05/29/20 07/08/20 ipratropium 20 mcg-albuterol 100 1 puff PO QID 05/29/20 07/08/20 mcg/actuation mist for inhalation montelukast 10 mg tablet 10 mg PO BEDTIME 05/29/20 07/08/20 albuterol sulfate 1 amp INHALATION Q6H PRN 07/08/20 07/08/20 amlodipine 2.5 mg tablet 2.5 mg PO DAILY 07/08/20 07/08/20 atorvastatin 20 mg tablet 20 mg PO BEDTIME 07/08/20 07/08/20 Previous Rx's Medication Instructions Recorded acetaminophen 325 mg tablet 650 mg PO Q6H PRN #14 tab 07/08/20 (Tylenol) lidocaine 4 % topical patch 1 patch TOPICAL Q24H PRN #15 ea 07/08/20 albuterol sulfate 90 mcg/actuation 2 puff INHALATION Q4-6H PRN 30 12/03/20 aerosol inhaler (ProAir HFA) Days #8.5 g fluticasone propionate 44 2 puff INHALATION BID 30 Days 12/03/20 mcg/actuation HFA aerosol inhaler #10.6 g (Flovent HFA) ipratropium 20 mcg-albuterol 100 1 puff INHALATION QID 30 Days #4 g 12/03/20 mcg/actuation mist for inhalation (Combivent Respimat) cyclobenzaprine 10 mg tablet 10 mg PO Q8H PRN #14 tab 03/18/21 naproxen 500 mg tablet 500 mg PO BID PRN #10 tab 03/18/21 ofloxacin 0.3 % ear drops 10 drp OTIC (EARS) BID 14 Days #10 03/18/21 ml tramadol 50 mg tablet 50 mg PO Q8H PRN #14 tab 03/18/21 Allergies Allergy/AdvReac Type Severity Reaction Status Date / Time No Known Allergies Allergy Unknown UNKNOWN Verified 12/03/20 15:46 [NO KNOWN ALLERGIES] Review of Systems Review of Systems: Constitutional : No Weight loss, No Fever, No Chills, No Night Sweats, No Fatigue, No Malaise ENT/Mouth : + left ear pain, No Hearing loss, No Nasal Congestion, No Sinus Pain, No Hoarseness, No sore throat, No Rhinorrhea, No Swallowing Difficulty Eyes: No Eye Pain, No Swelling, No Redness, No Foreign Body, No Discharge, No Vision Changes Cardiovascular : No Chest Pain, No SOB, No Dyspnea on Exertion, No Orthopnea, No Edema, No Palpitations Respiratory : No Cough, No Sputum, No Wheezing, No Smoke Exposure, No Dyspnea Gastrointestinal : No Nausea, No Vomiting, No Diarrhea, No Constipation, No abdominal Pain, No Hematochezia, No Melena Genitourinary : no irregular bleeding, No Dysuria, No Urinary Frequency, No Hematuria, No Urinary Incontinence, No Urgency, No Flank Pain, No Urinary Flow Changes, No Hesitancy Musculoskeletal : No joint pain, No Myalgias, No Joint Swelling Skin : No Skin Lesions, No rash Neuro : No Weakness, No Numbness, No Paresthesias, No Loss of Consciousness, No Dizziness, + intermittent Headache Psych : No Anxiety/Panic, No Depression, No SI/HI/AH/VH, No Social Issues, Heme/Lymph: No Bruising, No Bleeding,No Lymphadenopathy Endocrine : No Polyuria, No Polydipsia, No Temperature Intolerance Yes all other systems are reviewed and are negative [facility] Past Medical History Attestation statement: The following information was validated with the patient. Medical History Allergic rhinitis Asthma COPD (chronic obstructive pulmonary disease) COPD (chronic obstructive pulmonary disease) High cholesterol Hyperlipidemia Hypertension Prostate CA Social History Social History Alcohol intake: unknown Patient Tobacco Use Status: Never used Tobacco Advance Directives: No Current occupational status: retired and disabled Current occupation: right handed Physical Exam Vital Signs: Vital Signs: Last Vital Signs Temp 98.2 F 03/18/21 09:10 Pulse 62 03/18/21 09:10 Resp 18 03/18/21 09:10 BP 163/52 H 03/18/21 09:10 Pulse Ox 99 03/18/21 09:10 Body Mass Index 29.2 vital signs have been reviewed as normal and appeared to be correct. Blood pressure normal. Heart rate normal. Respiration rate normal. Temperature normal. Oxygen saturation normal. Appearance: Alert. Oriented X3. No acute distress. Head: Normal external exam. Normocephalic. Atraumatic. Eyes: PERRLA. EOMI. Conjunctiva and sclera normal. Eyelids normal. ENT: Patient with mild tenderness palpation to the left tragus. Mild erythema/edema of the external canal although no drainage is noted. Possibly starting of otitis externa. Otherwise right external ear canal within normal limits. TM's Normal. Pharynx normal. Uvula midline. Moist mucous membranes. No trismus noted. No drooling noted. No muffled voice noted. Patient noted to have tenderness to palpation upon pre-auricular area when opening and closing the mouth consistent with TMJ syndrome. Although no crepitus or click are noted on exam. Neck: Normal inspection. Neck supple. FROM. No adenopathy. No meningeal signs. No neck mass noted. CVS: Normal heart rate and rhythm. Respiratory: No respiratory distress. Painless inspiration. Back: Full range of motion noted. No rashes/lesion/induration/fluctuance or signs of infection noted. Skin: Skin warm and dry. Normal skin color. Normal skin turgor. No rashes/lesions/lacerations noted. Extremities: Extremities exhibit normal range of motion. Extremities nontender. Neuro: Oriented X 3. No motor deficit. No sensory deficit. Reflexes normal. Normal steady gait. No focal neuro deficits noted. Vascular: + radial pulses. Normal cap refill. No cyanosis noted to upper extremity nails Course Course Course Narrative: 80-year-old male presenting to the ED with complaints of left ear pain for the past 2 weeks worse with palpation. He reports that the pain gets an intermittent headaches. On exam patient has a mild left otitis externa and possibly TMJ syndrome. Will DC home with antibiotics and symptomatic treatment instructions follow-up with primary care provider and to return if any new or worsening symptoms. Patient understands agrees with this plan. MDM - Ear Medical Records Attestation: I reviewed the patient's medical records. Discharge Plan Discharge Clinical Impression: Left-sided temporomandibular joint pain-dysfunction syndrome, External otitis of left ear Patient Disposition: Home, Self-Care Instructions: Otitis Externa (ED), Temporomandibular Disorder (ED) Prescriptions: New cyclobenzaprine 10 mg tablet 10 mg PO Q8H PRN (Reason: Muscle spasm) Qty: 14 RF: 0 tramadol 50 mg tablet 50 mg PO Q8H PRN (Reason: pain) Qty: 14 RF: 0 naproxen 500 mg tablet 500 mg PO BID PRN (Reason: pain) Qty: 10 RF: 0 ofloxacin 0.3 % drops 10 drp otic (ears) BID 14 Days Qty: 10 RF: 0 No Action atorvastatin 20 mg tablet 20 mg PO BEDTIME RF: 0 albuterol sulfate 2.5 mg /3 mL (0.083 %) solution for nebulization 1 amp inhalation Q6H PRN (Reason: wheezing) RF: 0 amlodipine 2.5 mg tablet 2.5 mg PO DAILY RF: 0 lidocaine 4 % adhesive patch,medicated 1 patch topical Q24H PRN (Reason: pain) Qty: 15 RF: 0 acetaminophen [Tylenol] 325 mg tablet 650 mg PO Q6H PRN (Reason: pain) Qty: 14 RF: 1 cholecalciferol (vitamin D3) 25 mcg (1,000 unit) tablet 25 mcg PO DAILY RF: 0 aspirin 81 mg tablet,delayed release (DR/EC) 81 mg PO DAILY RF: 0 montelukast 10 mg tablet 10 mg PO BEDTIME RF: 0 hydrochlorothiazide 12.5 mg tablet 12.5 mg PO DAILY RF: 0 fluticasone propionate 50 mcg/actuation spray,suspension 2 spray intranasal DAILY RF: 0 acetaminophen 650 mg tablet extended release 1,300 mg PO Q8H PRN (Reason: Pain) RF: 0 Flovent HFA 44 mcg/actuation HFA aerosol inhaler 2 puff PO BID RF: 0 Combivent Respimat 20-100 mcg/actuation mist 1 puff PO QID RF: 0 albuterol sulfate 90 mcg/actuation HFA aerosol inhaler 2 puff PO Q4-6H PRN (Reason: Shortness Of Breath Or Wheezing) RF: 0 Combivent Respimat 20-100 mcg/actuation mist 1 puff inhalation QID 30 Days Qty: 4 RF: 5 Flovent HFA 44 mcg/actuation HFA aerosol inhaler 2 puff inhalation BID 30 Days Qty: 10.6 RF: 5 albuterol sulfate [ProAir HFA] 90 mcg/actuation HFA aerosol inhaler 2 puff inhalation Q4-6H PRN (Reason: shortness of breath or wheezing) 30 Days Qty: 8.5 RF: 3 Referrals: Rayne Brizuela MD [Primary Care Provider] - 2 days Print Language: Sammarinese
== END 2021-03-18 10:07 | disposition home or self-care (01) ==
PROVIDERS: Emergency Provider Emergency Medicine; PCP Internal Medicine
DX: M26.622 Arthralgia of left temporomandibular joint (principal); H60.92 Unspecified otitis externa, left ear; R51.9 Headache, unspecified; Z79.899 Other long term (current) drug therapy
CPT/HCPCS: 99283

== ENCOUNTER 2021-03-24 12:03 | Emergency (ER) | payer MEDICARE, SELFPAY ==
--- NOTE | ~2021-03-24 | XR_ITS ---
EXAMINATION: XR SACRUM AND COCCYX CLINICAL INFORMATION: Fall COMPARISON: None TECHNIQUE: 2 views of the sacrum and 2 views of the coccyx were obtained. FINDINGS: No fracture or dislocation is seen. The sacroiliac joints are normal-appearing. There are degenerative changes of the lower lumbar spine and hip joints. XR/XR sacrum coccyx min 2V IMPRESSION: No fracture seen.
[2021-03-24 12:10] VITALS: BP 172/82; PULSE 77; O2SAT 98
[2021-03-24 12:46] VITALS: BP 163/73; PULSE 92; RESP 20; O2SAT 99; BMI 28.1
--- NOTE | 2021-03-24 13:08 | ECG_ITS ---
Test Reason : FALL Blood Pressure : / mmHG Vent. Rate : 063 BPM Atrial Rate : 063 BPM P-R Int : 136 ms QRS Dur : 088 ms QT Int : 382 ms P-R-T Axes : -14 065 092 degrees QTc Int : 390 ms Normal sinus rhythm Nonspecific ST and T wave abnormality Abnormal ECG When compared with ECG of 08-JUL-2020 09:34, Heart rate has increased Sinus Arrhythmia is no longer Present Referred By: Generic ED Physician Electronically Signed By:CLAYTON LATHAM MD
[2021-03-24 13:57] LABS: MANUAL DIFF FLAG NO
[2021-03-24 13:59] LABS: Basophils Absolute Auto 0.1 X10*3/uL (0.0-0.2); Basophils Percent Auto 0.9 % (0-2); Eosinophils Absolute Auto 0.3 X10*3/uL (0.0-0.4); Eosinophils Percent Auto 3.3 % (0-4); Hematocrit 43.4 % (42.0-52.0); Hemoglobin 15.2 g/dl (14.0-18.0); Imm Gran Abs Auto 0.02 X10*3/uL (0.00-0.03); Imm Gran Pct Auto 0.2 % (0.0-0.4); Lymphocytes Absolute Auto 2.1 X10*3/uL (1.2-4.9); Lymphocytes Percent Auto 20.1 % (20-40); Mean Corpuscular Hemoglobin 31.1 pg (27.0-33.0); Mean Corpuscular Volume 88.8 fL (80.0-98.0); Mean Platelet Volume 10.2 fL (9.4-12.4); Monocytes Absolute Auto 1.2 X10*3/uL (0.1-1.2); Monocytes Percent Auto 11.3 % (2-11); Neutrophils Absolute Auto 6.6 x10*3/uL (2.0-8.3); Neutrophils Percent Auto 64.2 % (45-73); Platelet Count 278 X10*3/uL (160-400); Red Blood Count 4.89 X10*6/uL (4.60-5.80); Red Cell Distribution Width 13.4 % (11.0-16.0); White Blood Count 10.3 X10*3/uL (4.8-10.8)
[2021-03-24 14:11] LABS: Anion Gap 10 (12-20); Blood Urea Nitrogen 12 mg/dL (9-16); Calcium 9.4 mg/dL (8.4-10.2); Carbon Dioxide 29 mmol/L (22-29); Chloride 101 mmol/L (96-108); Creatinine Clr Calc Pharmacy 61.4; Estimated Glomerular Filt Rate > 60; Glucose Random 98 mg/dL (60-115); Potassium 4.2 mmol/L (3.3-5.1); Sodium 136 mmol/L (135-145)
[2021-03-24 14:18] LABS: Troponin-I High Sensitivity 10.5 ng/L (<3.5-35.0)
--- NOTE | 2021-03-24 16:00 | ED_ITS ---
HPI - Fall General Chief Complaint: Fall Stated Complaint: slip fall, rear pain Time Seen by Provider: 03/24/21 16:00 Source: patient Mode of arrival: ambulatory Limitations: no limitations History of Present Illness HPI Narrative: 80-year-old male presents with injury sustained from a fall Two days ago. States that he was dizzy and fell backward onto his bottom. Does not report hitting his head during the fall but when he got up he did his left ear. MD complaint: fall Onset (ago): day(s) (2) Fall from: standing Fall witnessed: yes, by family Place fall occurred: home Loss of consciousness: none Prolonged down time: no Symptoms prior to fall: dizziness Location of injury: buttocks Severity: mild Severity scale (1-10): 5 Quality: aching Associated symptoms (after fall): denies Related Data Home Medications Medication Instructions Recorded Confirmed acetaminophen 650 mg 1,300 mg PO Q8H PRN 05/29/20 07/08/20 tablet,extended release albuterol sulfate 90 mcg/actuation 2 puff PO Q4-6H PRN 05/29/20 07/08/20 aerosol inhaler aspirin 81 mg tablet,delayed 81 mg PO DAILY 05/29/20 07/08/20 release cholecalciferol (vitamin D3) 25 25 mcg PO DAILY 05/29/20 07/08/20 mcg (1,000 unit) tablet fluticasone propionate 44 2 puff PO BID 05/29/20 07/08/20 mcg/actuation HFA aerosol inhaler fluticasone propionate 50 2 spray INTRANASAL DAILY 05/29/20 07/08/20 mcg/actuation nasal spray,suspension hydrochlorothiazide 12.5 mg tablet 12.5 mg PO DAILY 05/29/20 07/08/20 ipratropium 20 mcg-albuterol 100 1 puff PO QID 05/29/20 07/08/20 mcg/actuation mist for inhalation montelukast 10 mg tablet 10 mg PO BEDTIME 05/29/20 07/08/20 albuterol sulfate 1 amp INHALATION Q6H PRN 07/08/20 07/08/20 amlodipine 2.5 mg tablet 2.5 mg PO DAILY 07/08/20 07/08/20 atorvastatin 20 mg tablet 20 mg PO BEDTIME 07/08/20 07/08/20 Previous Rx's Medication Instructions Recorded acetaminophen 325 mg tablet 650 mg PO Q6H PRN #14 tab 07/08/20 (Tylenol) lidocaine 4 % topical patch 1 patch TOPICAL Q24H PRN #15 ea 07/08/20 albuterol sulfate 90 mcg/actuation 2 puff INHALATION Q4-6H PRN 30 12/03/20 aerosol inhaler (ProAir HFA) Days #8.5 g fluticasone propionate 44 2 puff INHALATION BID 30 Days 12/03/20 mcg/actuation HFA aerosol inhaler #10.6 g (Flovent HFA) ipratropium 20 mcg-albuterol 100 1 puff INHALATION QID 30 Days #4 g 12/03/20 mcg/actuation mist for inhalation (Combivent Respimat) cyclobenzaprine 10 mg tablet 10 mg PO Q8H PRN #14 tab 03/18/21 naproxen 500 mg tablet 500 mg PO BID PRN #10 tab 03/18/21 ofloxacin 0.3 % ear drops 10 drp OTIC (EARS) BID 14 Days #10 03/18/21 ml tramadol 50 mg tablet 50 mg PO Q8H PRN #14 tab 03/18/21 Allergies Allergy/AdvReac Type Severity Reaction Status Date / Time No Known Allergies Allergy Unknown UNKNOWN Verified 12/03/20 15:46 [NO KNOWN ALLERGIES] Review of Systems Review of Systems: Constitutional: No Fever, No Chills ENT/Mouth: No Ear Pain, No Hoarseness, No sore throat Eyes: No Eye Pain, No Swelling, No Redness, No Foreign Body Cardiovascular: No Chest Pain, No SOB Respiratory: No Cough, No Dyspnea Gastrointestinal: No Nausea, No Vomiting, No Diarrhea, No abdominal Pain Genitourinary: No Dysuria, No Hematuria Musculoskeletal: positive Buttocks pain, No Myalgias, No Joint Swelling Skin: No Skin lacerations, No rash Neuro: No Weakness, No Numbness, No Paresthesias, No Loss of Consciousness, No Dizziness, No Headache Psych: No Anxiety/Panic, No Depression Heme/Lymph: no easy bruising, no Lymphadenopathy Endocrine: No Polyuria, No Polydipsia Yes all other systems are reviewed and are negative PMFSH Past Medical History Attestation statement: The following information was validated with the patient. Source: old records reviewed Medical History Allergic rhinitis Asthma COPD (chronic obstructive pulmonary disease) COPD (chronic obstructive pulmonary disease) High cholesterol Hyperlipidemia Hypertension Prostate CA Social History Social History Alcohol intake: unknown Patient Tobacco Use Status: Never used Tobacco Advance Directives: No Advance Directives Information Provided: Yes Current occupational status: retired and disabled Current occupation: right handed Physical Exam Vital Signs: Vital Signs: Last Vital Signs Pulse 92 03/24/21 12:46 Resp 20 03/24/21 12:46 BP 163/73 H 03/24/21 12:46 Pulse Ox 99 03/24/21 12:46 Body Mass Index 28.1 Appearance: Alert. Oriented X3. No acute distress. Eyes: Pupils equal, round and reactive to light. ENT: Pharynx normal. Neck: Normal inspection. Neck supple. No vertebral tenderness or step-offs. CVS: Normal heart rate and rhythm. Pulses normal. Respiratory: No respiratory distress. Breath sounds normal. Abdomen: Soft and nontender. Skin: Skin warm and dry. Normal skin color. Normal skin turgor. Extremities: No lower extremity edema. Moves all extremities against resistance. Neuro: No motor deficit. No sensory deficit. cranial nerves 2-12 intact. Course Course Course Narrative: 80-year-old male presents with injury sustained from a fall 2 days ago. EKG shows no changes from prior. Lab values are unremarkable. Vital signs are stable and within normal limits. Patient is able to move all extremities against resistance and equally. Neurovascularly intact. No chest wall tenderness to palpation. No abdominal pain to palpation. Denies fevers, chills, no other complaints reported at this time. Sacral and coccyx x-rays are negative. Plan of care to discharge home and have patient follow-up with primary care physician. interpreter for the deaf utilized for all correspondence. Google translate utilized for discharge instructions. MDM - Fall Differential Diagnosis Differential diagnosis: Likely fracture and compression fracture Medical Records Attestation: I reviewed the patient's medical records. Lab Data Attestation: I reviewed the patient's lab results. Result diagrams: 03/24/21 13:52 03/24/21 13:52 Labs: Lab Results 03/24/21 03/24/21 03/24/21 Range/Units 13:52 13:52 13:52 WBC 10.3 (4.8-10.8) X10*3/uL RBC 4.89 (4.60-5.80) X10*6/uL Hgb 15.2 (14.0-18.0) g/dl Hct 43.4 (42.0-52.0) % MCV 88.8 (80.0-98.0) fL MCH 31.1 (27.0-33.0) pg MCHC 35.0 (31.0-36.0) g/dl RDW 13.4 (11.0-16.0) % Plt Count 278 (160-400) X10*3/uL MPV 10.2 (9.4-12.4) fL Immature Gran % (Auto) 0.2 (0.0-0.4) % Neut % (Auto) 64.2 (45-73) % Lymph % (Auto) 20.1 (20-40) % [place] % (Auto) 11.3 H (2-11) % Eos % (Auto) 3.3 (0-4) % Baso % (Auto) 0.9 (0-2) % Lymph # (Auto) 2.1 (1.2-4.9) X10*3/uL [place] # (Auto) 1.2 (0.1-1.2) X10*3/uL Eos # (Auto) 0.3 (0.0-0.4) X10*3/uL Baso # (Auto) 0.1 (0.0-0.2) X10*3/uL Abs Immat Gran (auto) 0.02 (0.00-0.03) X10*3/uL Absolute Neuts (auto) 6.6 (2.0-8.3) x10*3/uL Absolute Nucleated RBC 0.000 (0.0-0.012) X10*3/uL Nucleated RBC % (auto) 0.0 (0.0-0.2) /100WBC Sodium 136 (135-145) mmol/L Potassium 4.2 (3.3-5.1) mmol/L Chloride 101 (96-108) mmol/L Carbon Dioxide 29 (22-29) mmol/L Anion Gap 10 L (12-20) BUN 12 (9-16) mg/dL Creatinine 0.98 (0.5-1.4) mg/dL Estim Creat Clear Calc 61.4 Estimated GFR > 60 Random Glucose 98 (60-115) mg/dL Calcium 9.4 (8.4-10.2) mg/dL Troponin I High Sens 10.5 (<3.5-35.0) ng/L Imaging Data sacral and coccyx x-ray: Attestation: I personally reviewed and interpreted this imaging study as follows: Radiologist's impression: EXAMINATION: XR SACRUM AND COCCYX CLINICAL INFORMATION: Fall COMPARISON: None TECHNIQUE: 2 views of the sacrum and 2 views of the coccyx were obtained. FINDINGS: No fracture or dislocation is seen. The sacroiliac joints are normal-appearing. There are degenerative changes of the lower lumbar spine and hip joints. XR/XR sacrum coccyx min 2V IMPRESSION: No fracture seen. ECG Data Attestation: I personally reviewed and interpreted this ECG as follows: ECG interpretation date: 03/24/21 ECG interpretation time: 13:08 Prior ECG tracings: available for review Interpretation: Vent. Rate : 063 BPM ? ? Atrial Rate : 063 BPM ?? P-R Int : 136 ms? QRS Dur : 088 ms ? ? QT Int : 382 ms ? ? ? P-R-T Axes : -14 065 092 degrees ?? QTc Int : 390 ms ? Normal sinus rhythm Nonspecific ST and T wave abnormality Abnormal ECG When compared with ECG of 08-JUL-2020 09:34, No significant change was found Discharge Plan Discharge Clinical Impression: Dizziness, Degenerative disc disease, lumbar, Arthritis Fall Qualifiers: Encounter type: initial encounter Qualified Code(s): W19.XXXA - Unspecified fall, initial encounter Patient Disposition: Home, Self-Care Instructions: Fall Prevention for Older Adults (ED), Dizziness (ED), Back Pain (ED), Fall Prevention (ED), Degenerative Disc Disease (ED) Additional Instructions: fue evaluado por lesiones sufridas por michael ca?da hace 2 d?as. Bland examen f?sico es normal. Dulce Maria radiograf?as muestran michael enfermedad degenerativa del disco y artritis en ambas caderas. dulce maria valores de laboratorio son normales. Bland ECG no muestra liv?n cambio con respecto a estudios de ECG anteriores. Jim un seguimiento con bland m?dico de atenci?n primaria. Use Tylenol seg?n sea necesario para controlar el dolor. Hue por elegir dariela departamento de emergencias para bland evaluaci?n. Jim un seguimiento con bland m?dico de atenci?n primaria seg?n sea necesario. Regrese al departamento de emergencias por cualquier s?ntoma nuevo, preocupante o que empeore. you were evaluated for injuries sustained from a fall 2 days ago. Your physical exam is normal. Your x-rays show degenerative disc disease and art hritis in both hips. your lab values are normal. Your EKG does not show any changes from prior EKG studies. Please follow-up with primary care physician. Use Tylenol as needed for pain management. Thank you for choosing this emergency department for evaluation. Please follow-up with primary care physician as needed. Return to the emergency department for any new, concerning, or worsening symptoms. Prescriptions: No Action atorvastatin 20 mg tablet 20 mg PO BEDTIME RF: 0 albuterol sulfate 2.5 mg /3 mL (0.083 %) solution for nebulization 1 amp inhalation Q6H PRN (Reason: wheezing) RF: 0 amlodipine 2.5 mg tablet 2.5 mg PO DAILY RF: 0 lidocaine 4 % adhesive patch,medicated 1 patch topical Q24H PRN (Reason: pain) Qty: 15 RF: 0 acetaminophen [Tylenol] 325 mg tablet 650 mg PO Q6H PRN (Reason: pain) Qty: 14 RF: 1 cyclobenzaprine 10 mg tablet 10 mg PO Q8H PRN (Reason: Muscle spasm) Qty: 14 RF: 0 tramadol 50 mg tablet 50 mg PO Q8H PRN (Reason: pain) Qty: 14 RF: 0 naproxen 500 mg tablet 500 mg PO BID PRN (Reason: pain) Qty: 10 RF: 0 ofloxacin 0.3 % drops 10 drp otic (ears) BID 14 Days Qty: 10 RF: 0 cholecalciferol (vitamin D3) 25 mcg (1,000 unit) tablet 25 mcg PO DAILY RF: 0 aspirin 81 mg tablet,delayed release (DR/EC) 81 mg PO DAILY RF: 0 montelukast 10 mg tablet 10 mg PO BEDTIME RF: 0 hydrochlorothiazide 12.5 mg tablet 12.5 mg PO DAILY RF: 0 fluticasone propionate 50 mcg/actuation spray,suspension 2 spray intranasal DAILY RF: 0 acetaminophen 650 mg tablet extended release 1,300 mg PO Q8H PRN (Reason: Pain) RF: 0 Flovent HFA 44 mcg/actuation HFA aerosol inhaler 2 puff PO BID RF: 0 Combivent Respimat 20-100 mcg/actuation mist 1 puff PO QID RF: 0 albuterol sulfate 90 mcg/actuation HFA aerosol inhaler 2 puff PO Q4-6H PRN (Reason: Shortness Of Breath Or Wheezing) RF: 0 Combivent Respimat 20-100 mcg/actuation mist 1 puff inhalation QID 30 Days Qty: 4 RF: 5 Flovent HFA 44 mcg/actuation HFA aerosol inhaler 2 puff inhalation BID 30 Days Qty: 10.6 RF: 5 albuterol sulfate [ProAir HFA] 90 mcg/actuation HFA aerosol inhaler 2 puff inhalation Q4-6H PRN (Reason: shortness of breath or wheezing) 30 Days Qty: 8.5 RF: 3 Interventions: ED Discharge Assessment Last Done: 03/24/21 16:28 Discharge Date/Time: 03/24/21 16:31
== END 2021-03-24 16:31 | disposition home or self-care (01) ==
PROVIDERS: Emergency Provider Emergency Medicine
DX: R42 Dizziness and giddiness (principal); M51.36 Other intervertebral disc degeneration, lumbar region; Z91.81 History of falling
CPT/HCPCS: 36415; 72220; 80048; 84484; 85025; 93005; 99283

== ENCOUNTER 2021-09-16 19:59 | Inpatient (IN) | payer MEDICARE, SELFPAY ==
--- NOTE | ~2021-09-16 | XR_ITS ---
EXAMINATION: CHEST, THORACIC SPINE CLINICAL INFORMATION: Fall with back pain COMPARISON: Chest and RIBS 07/08/2020, CT abdomen pelvis 07/08/2020 TECHNIQUE: 3 views thoracic spine, 2 views chest FINDINGS: No significant abnormalities seen involving the thoracic spine. Vertebral heights and disc spaces are well preserved. No fractures are seen. Paravertebral soft tissues are unremarkable. No bony destructive lesions. No significant abnormalities seen involving the heart, lungs, mediastinum or bony thorax. A densely calcified granuloma is noted at the right lung base. XR/XR chest 2V IMPRESSION: No acute intrathoracic. No fractures involving the spine or pneumothorax
--- NOTE | ~2021-09-16 | XR_ITS ---
EXAMINATION: CHEST, THORACIC SPINE CLINICAL INFORMATION: Fall with back pain COMPARISON: Chest and RIBS 07/08/2020, CT abdomen pelvis 07/08/2020 TECHNIQUE: 3 views thoracic spine, 2 views chest FINDINGS: No significant abnormalities seen involving the thoracic spine. Vertebral heights and disc spaces are well preserved. No fractures are seen. Paravertebral soft tissues are unremarkable. No bony destructive lesions. No significant abnormalities seen involving the heart, lungs, mediastinum or bony thorax. A densely calcified granuloma is noted at the right lung base. XR/XR thoracic spine 2V IMPRESSION: No acute intrathoracic. No fractures involving the spine or pneumothorax
--- NOTE | ~2021-09-16 | CT_ITS ---
EXAMINATION: CT ANGIOGRAM OF THE CHEST WITH AND WITHOUT CONTRAST (CT PULMONARY ANGIOGRAM FOR PE) CLINICAL INFORMATION: Reason for Exam COVID positive leaking troponins COMPARISON: Chest x-ray 09/16/2021 TECHNIQUE: Prior to contrast administration, noncontrast localization images were obtained. Subsequently, multidetector volumetric imaging was performed from the thoracic inlet to below the diaphragms following the administration of 75 mL Omnipaque 350 intravenous contrast. No contrast reaction reported Sagittal, coronal, and MIP oblique sagittal reformatted images were obtained on the CT workstation, uploaded to PACS, and reviewed. This CT examination was performed using dose optimization techniques as appropriate, variously including the following: *Automated exposure control *Adjustment of mA and/or kV according to patient size (this includes techniques or standardized protocols for targeted exams where dose is matched to indication/reason for exam; i.e. extremities or head) *Use of iterative reconstruction technique Total exam dose-length product 192 mGy-cm FINDINGS: QUALITY OF STUDY/CONTRAST BOLUS: Satisfactory. PULMONARY ARTERIES: No central or proximal segmental pulmonary emboli. Assessment of the more distal vasculature is significantly limited due to respiratory motion artifact. THORACIC AORTA: No aneurysm or dissection. LUNG: Detailed parenchymal evaluation is limited due to respiratory motion artifact. Thick-walled airways are noted, which may reflect acute or chronic bronchitis. No regions of consolidation bilaterally. Right lower lobe calcified granuloma noted. PLEURA: No pleural effusion or pneumothorax. MEDIASTINUM: Visualized thyroid gland is grossly unremarkable. There are subcentimeter mediastinal lymph nodes within the range of normal variation. Right hilar calcifications are presumably [place] in the setting of prior granulomatous disease. Cardiac size is within normal limits; no pericardial effusion. There is mild coronary artery calcification. CHEST WALL/AXILLA: No axillary or internal mammary lymphadenopathy. OSSEOUS STRUCTURES: No acute or suspicious osseous abnormality. UPPER ABDOMEN: There is some reflux of contrast into the hepatic veins which can be seen with elevated right heart pressures. Partially visualized cholelithiasis. CT/CT angio chest PE protocol IMPRESSION: 1. No central or proximal segmental pulmonary embolus identified. Evaluation of the distal vasculature is incomplete due to extensive respiratory motion artifact. 2. Reflux of contrast into the hepatic veins, which can be seen with elevated right heart pressures. 3. Thick-walled airways, which could reflect acute or chronic bronchitis. VTE: negative
[2021-09-16 20:21] VITALS: BP 141/60; PULSE 110; RESP 19; TEMP 37.4; O2SAT 97; BMI 28.1
[2021-09-16 21:07] VITALS: BP 130/54; PULSE 95; RESP 18; TEMP 37.4; O2SAT 99
--- NOTE | 2021-09-16 22:14 | ED_ITS ---
HPI - General Adult General Chief complaint: Fall Stated complaint: Fall/Rt arm pain Time Seen by Provider: 09/16/21 20:34 Source: patient Mode of arrival: EMS Limitations: language barrier History of Present Illness HPI narrative: History obtained through rope cleaner. Patient fell today at 1pm, he was dizzy. Patient felt suddenly lightheaded, he remembers falling. He hit his back, left arm and left leg. He hit his head, he takes an ASA. Normally he walks with a walker, he was using it when he fell. Patient felt weak and could not get himself up for 2 hours. He states that his weakness was the entire body not one sided. His son and his son in law found him. He was on a hard floor for 2 hours. Son called the ambulance because he had no strength. Onset (ago): hour(s) Severity: moderate Associated symptoms: other (head, shoulder and leg pain) Treatments prior to arrival: none Related Data Home Medications Medication Instructions Recorded Confirmed acetaminophen 650 mg 1,300 mg PO Q8H PRN 05/29/20 07/08/20 tablet,extended release albuterol sulfate 90 mcg/actuation 2 puff PO Q4-6H PRN 05/29/20 07/08/20 aerosol inhaler aspirin 81 mg tablet,delayed 81 mg PO DAILY 05/29/20 07/08/20 release cholecalciferol (vitamin D3) 25 25 mcg PO DAILY 05/29/20 07/08/20 mcg (1,000 unit) tablet fluticasone propionate 44 2 puff PO BID 05/29/20 07/08/20 mcg/actuation HFA aerosol inhaler fluticasone propionate 50 2 spray INTRANASAL DAILY 05/29/20 07/08/20 mcg/actuation nasal spray,suspension hydrochlorothiazide 12.5 mg tablet 12.5 mg PO DAILY 05/29/20 07/08/20 ipratropium 20 mcg-albuterol 100 1 puff PO QID 05/29/20 07/08/20 mcg/actuation mist for inhalation montelukast 10 mg tablet 10 mg PO BEDTIME 05/29/20 07/08/20 albuterol sulfate 1 amp INHALATION Q6H PRN 07/08/20 07/08/20 amlodipine 2.5 mg tablet 2.5 mg PO DAILY 07/08/20 07/08/20 atorvastatin 20 mg tablet 20 mg PO BEDTIME 07/08/20 07/08/20 Previous Rx's Medication Instructions Recorded acetaminophen 325 mg tablet 650 mg PO Q6H PRN #14 tab 07/08/20 (Tylenol) lidocaine 4 % topical patch 1 patch TOPICAL Q24H PRN #15 ea 07/08/20 albuterol sulfate 90 mcg/actuation 2 puff INHALATION Q4-6H PRN 30 12/03/20 aerosol inhaler (ProAir HFA) Days #8.5 g fluticasone propionate 44 2 puff INHALATION BID 30 Days 12/03/20 mcg/actuation HFA aerosol inhaler #10.6 g (Flovent HFA) cyclobenzaprine 10 mg tablet 10 mg PO Q8H PRN #14 tab 03/18/21 naproxen 500 mg tablet 500 mg PO BID PRN #10 tab 03/18/21 ofloxacin 0.3 % ear drops 10 drp OTIC (EARS) BID 14 Days #10 03/18/21 ml tramadol 50 mg tablet 50 mg PO Q8H PRN #14 tab 03/18/21 ipratropium 20 mcg-albuterol 100 1 puff INHALATION QID #4 g 07/28/21 mcg/actuation mist for inhalation (Combivent Respimat) Allergies Allergy/AdvReac Type Severity Reaction Status Date / Time No Known Allergies Allergy Unknown UNKNOWN Verified 09/16/21 20:25 [NO KNOWN ALLERGIES] Review of Systems Constitutional: Constitutional: Reports no additional constitutional complaints Eyes: Eyes: Reports no additional eye complaints ENT: Denies dizziness Cardiovascular: Cardiovascular: Reports no additional cardiovascular complaints Respiratory: Respiratory: Reports as per HPI Gastrointestinal: Gastrointestinal: Reports no additional gastrointestinal complaints Musculoskeletal: Musculoskeletal: Reports no additional musculoskeletal complaints Integumentary/Breasts: Skin/Breast: Denies rash Neurologic: Reports system reviewed and no additional complaints, except as documented, Denies dizziness and Denies Sensory deficit (Neuro) Psychiatric: Psychiatric: Denies anxiety PMFSH Past Medical History Medical History Allergic rhinitis Asthma COPD (chronic obstructive pulmonary disease) COPD (chronic obstructive pulmonary disease) High cholesterol Hyperlipidemia Hypertension Prostate CA Social History Social History Alcohol intake: unknown Patient Tobacco Use Status: Never used Tobacco Advance Directives: No Advance Directives Information Provided: Yes Current occupational status: retired and disabled Current occupation: right handed Physical Exam ED Vital Signs: Vital Signs - 24 hr 09/16/21 20:21 09/16/21 21:07 09/16/21 22:38 Temperature 99.4 F 99.3 F Pulse Rate 110 H 95 95 Respiratory Rate 19 18 18 Blood Pressure 141/60 H 130/54 L Pulse Oximetry 97 99 09/17/21 00:03 Temperature Pulse Rate 64 Respiratory Rate 16 Blood Pressure 137/63 Pulse Oximetry 100 BMI result Body Mass Index 28.1 Const Other: elderly male slightly short of breath Nutritional Appearance: average body habitus Orientation/consciousness: oriented to person and patient oriented x3 Limitations: no limitations HENMT Head: Yes normal to inspection Ears: external ears normal General nose exam: Normal external nose present Mouth: Normal oral and palatal mucosa present and oropharynx normal Throat: Yes posterior oropharynx normal Eyes General: appearance normal, both eyes and all related structures Neck Neck: Yes normal visual inspection Chest Chest palpation & inspection: normal inspection of the chest Resp Other: diffuse wheezing Cardio Jugular venous distension: no JVD Rate: regular rate Rhythm: regular rhythm Heart sounds: S1 normal heart sound present and S2 normal heart sound present GI Inspection: Yes normal to inspection Palpation (GI): Soft to palpation, nontender and No hepatosplenomegaly present Auscultation: normal bowel sounds General: Yes no CVA tenderness Back/Spine/Pelvis Back: no CVA tenderness Skin General skin exam: no rashes or lesions noted Neuro General: oriented to person and patient oriented x3 Cranial nerves: Yes CN's II-XII intact bilaterally Motor exam (neuro): 5/5 motor strength present throughout Sensory Exam: No Sensory deficit (Neuro) Extrem General: Yes normal to inspection Psych Appearance: grossly normal Course Reevaluation(s) Reevaluation #1: patient with positive troponin, ordering EKG and ASA and repeat troponin Time: 23:55 Medical Decision Making Lab Data Result diagrams: 09/16/21 22:43 09/16/21 22:43 Labs: Lab Results 09/16/21 09/16/21 09/16/21 Range/Units 22:43 22:43 22:43 WBC 13.6 H (4.8-10.8) X10*3/uL RBC 4.61 (4.60-5.80) X10*6/uL Hgb 14.1 (14.0-18.0) g/dl Hct 41.1 L (42.0-52.0) % MCV 89.2 (80.0-98.0) fL MCH 30.6 (27.0-33.0) pg MCHC 34.3 (31.0-36.0) g/dl RDW 13.3 (11.0-16.0) % Plt Count 208 D (160-400) X10*3/uL MPV 10.6 (9.4-12.4) fL Immature Gran % (Auto) 0.4 (0.0-0.4) % Neut % (Auto) 79.5 H (45-73) % Lymph % (Auto) 9.5 L (20-40) % [place] % (Auto) 10.1 (2-11) % Eos % (Auto) 0.1 (0-4) % Baso % (Auto) 0.4 (0-2) % Lymph # (Auto) 1.3 (1.2-4.9) X10*3/uL [place] # (Auto) 1.4 H (0.1-1.2) X10*3/uL Eos # (Auto) 0.0 (0.0-0.4) X10*3/uL Baso # (Auto) 0.1 (0.0-0.2) X10*3/uL Abs Immat Gran (auto) 0.06 H (0.00-0.03) X10*3/uL Absolute Neuts (auto) 10.8 H (2.0-8.3) x10*3/uL Absolute Nucleated RBC 0.000 (0.0-0.012) X10*3/uL Nucleated RBC % (auto) 0.0 (0.0-0.2) /100WBC Sodium 138 (135-145) mmol/L Potassium 4.4 (3.3-5.1) mmol/L Chloride 110 H (96-108) mmol/L Carbon Dioxide 21 L (22-29) mmol/L Anion Gap 11 L (12-20) BUN 12 (9-16) mg/dL Creatinine 1.10 (0.5-1.4) mg/dL Estim Creat Clear Calc 53.8 Estimated GFR > 60 Random Glucose 103 (60-115) mg/dL Calcium 8.5 D (8.4-10.2) mg/dL Magnesium 2.3 (1.6-2.6) mg/dL Total Bilirubin 0.7 (0.0-1.0) mg/dL AST 94 H (5-37) U/L ALT 41 H (0-40) U/L Alkaline Phosphatase 99 (39-117) U/L Troponin I High Sens (<3.5-35.0) ng/L Total Protein 6.5 (6.5-8.0) g/dL Albumin 3.5 (3.5-5.0) g/dL COVID-19 ([facility]) Positive A (Negative) COVID-19 Clin Com See Note 09/16/21 09/17/21 Range/Units 22:43 00:06 WBC (4.8-10.8) X10*3/uL RBC (4.60-5.80) X10*6/uL Hgb (14.0-18.0) g/dl Hct (42.0-52.0) % MCV (80.0-98.0) fL MCH (27.0-33.0) pg MCHC (31.0-36.0) g/dl RDW (11.0-16.0) % Plt Count (160-400) X10*3/uL MPV (9.4-12.4) fL Immature Gran % (Auto) (0.0-0.4) % Neut % (Auto) (45-73) % Lymph % (Auto) (20-40) % [place] % (Auto) (2-11) % Eos % (Auto) (0-4) % Baso % (Auto) (0-2) % Lymph # (Auto) (1.2-4.9) X10*3/uL [place] # (Auto) (0.1-1.2) X10*3/uL Eos # (Auto) (0.0-0.4) X10*3/uL Baso # (Auto) (0.0-0.2) X10*3/uL Abs Immat Gran (auto) (0.00-0.03) X10*3/uL Absolute Neuts (auto) (2.0-8.3) x10*3/uL Absolute Nucleated RBC (0.0-0.012) X10*3/uL Nucleated RBC % (auto) (0.0-0.2) /100WBC Sodium (135-145) mmol/L Potassium (3.3-5.1) mmol/L Chloride (96-108) mmol/L Carbon Dioxide (22-29) mmol/L Anion Gap (12-20) BUN (9-16) mg/dL Creatinine (0.5-1.4) mg/dL Estim Creat Clear Calc Estimated GFR Random Glucose (60-115) mg/dL Calcium (8.4-10.2) mg/dL Magnesium (1.6-2.6) mg/dL Total Bilirubin (0.0-1.0) mg/dL AST (5-37) U/L ALT (0-40) U/L Alkaline Phosphatase (39-117) U/L Troponin I High Sens 606.5 H* 641.8 H* (<3.5-35.0) ng/L Total Protein (6.5-8.0) g/dL Albumin (3.5-5.0) g/dL COVID-19 ([facility]) (Negative) COVID-19 Clin Com Imaging Data chest xray and thoracic spine: Radiologist's impression: FINDINGS: No significant abnormalities seen involving the thoracic spine. Vertebral heights and disc spaces are well preserved. No fractures are seen. Paravertebral soft tissues are unremarkable. No bony destructive lesions. No significant abnormalities seen involving the heart, lungs, mediastinum or bony thorax. A densely calcified granuloma is noted at the right lung base. XR/XR chest 2V IMPRESSION: No acute intrathoracic. No fractures involving the spine or pneumothorax? ECG Data Attestation: I personally reviewed and interpreted this ECG as follows: Interpretation: sinus 68, no st or twave changes unchanged from February 2021 Critical Care Time Critical Care Time Attestation: I spent 40 minutes of critical care, with interventions, assessments, speaking to patient, consultants, and family. Discharge Plan Discharge Clinical Impression: COVID-19, Elevated troponin Patient Disposition: Admitted As Inpatient
[2021-09-16] MEDS: Albuterol Sulfate 90 MCG 8 GM INHALER 4 PUFF INHALE (22:36)
[2021-09-16 22:38] VITALS: PULSE 95; RESP 18; O2SAT 99
[2021-09-16 22:47] LABS: MANUAL DIFF FLAG NO
[2021-09-16 22:48] LABS: Basophils Absolute Auto 0.1 X10*3/uL (0.0-0.2); Basophils Percent Auto 0.4 % (0-2); Eosinophils Percent Auto 0.1 % (0-4); Hematocrit 41.1 % (42.0-52.0); Hemoglobin 14.1 g/dl (14.0-18.0); Imm Gran Abs Auto 0.06 X10*3/uL (0.00-0.03); Imm Gran Pct Auto 0.4 % (0.0-0.4); Lymphocytes Absolute Auto 1.3 X10*3/uL (1.2-4.9); Lymphocytes Percent Auto 9.5 % (20-40); Mean Corpuscular HGB Conc 34.3 g/dl (31.0-36.0); Mean Corpuscular Hemoglobin 30.6 pg (27.0-33.0); Mean Corpuscular Volume 89.2 fL (80.0-98.0); Mean Platelet Volume 10.6 fL (9.4-12.4); Monocytes Absolute Auto 1.4 X10*3/uL (0.1-1.2); Monocytes Percent Auto 10.1 % (2-11); Neutrophils Absolute Auto 10.8 x10*3/uL (2.0-8.3); Neutrophils Percent Auto 79.5 % (45-73); Platelet Count 208 X10*3/uL (160-400); Red Blood Count 4.61 X10*6/uL (4.60-5.80); Red Cell Distribution Width 13.3 % (11.0-16.0); White Blood Count 13.6 X10*3/uL (4.8-10.8)
[2021-09-16 22:59] LABS: COVID-19 Test Positive (Negative)
[2021-09-16 23:04] LABS: Alanine Aminotransferase 41 U/L (0-40); Albumin Level 3.5 g/dL (3.5-5.0); Alkaline Phosphatase 99 U/L (39-117); Anion Gap 11 (12-20); Aspartate Amino Transferase 94 U/L (5-37); Bilirubin Total 0.7 mg/dL (0.0-1.0); Blood Urea Nitrogen 12 mg/dL (9-16); Calcium 8.5 mg/dL (8.4-10.2); Carbon Dioxide 21 mmol/L (22-29); Chloride 110 mmol/L (96-108); Creatinine Clr Calc Pharmacy 53.8; Estimated Glomerular Filt Rate > 60; Glucose Random 103 mg/dL (60-115); Magnesium 2.3 mg/dL (1.6-2.6); Potassium 4.4 mmol/L (3.3-5.1); Sodium 138 mmol/L (135-145); Total Protein 6.5 g/dL (6.5-8.0)
[2021-09-16 23:14] LABS: Troponin-I High Sensitivity 606.5 ng/L (<3.5-35.0)
--- NOTE | 2021-09-16 23:53 | ECG_ITS ---
Test Reason : ELEVATED TROP Blood Pressure : / mmHG Vent. Rate : 068 BPM Atrial Rate : 068 BPM P-R Int : 150 ms QRS Dur : 082 ms QT Int : 338 ms P-R-T Axes : 087 066 122 degrees QTc Int : 359 ms Normal sinus rhythm with sinus arrhythmia Nonspecific ST and T wave abnormality Abnormal ECG When compared with ECG of 24-MAR-2021 13:44, No significant change was found Referred By: Ramesh Freitas Electronically Signed By:Patrick Jean-Baptiste
--- NOTE | 2021-09-17 | ECG_ITS ---
Test Reason : cp Blood Pressure : / mmHG Vent. Rate : 061 BPM Atrial Rate : 061 BPM P-R Int : 154 ms QRS Dur : 088 ms QT Int : 406 ms P-R-T Axes : 078 070 096 degrees QTc Int : 408 ms Normal sinus rhythm with sinus arrhythmia Nonspecific ST and T wave abnormality Abnormal ECG When compared with ECG of 16-SEP-2021 23:50, QT has lengthened Referred By: Live Chris Electronically Signed By:Patrick Jean-Baptiste
[2021-09-17 00:03] VITALS: BP 137/63; PULSE 64; RESP 16; O2SAT 100
[2021-09-17] MEDS: Aspirin Enteric Coated 325 MG TABLET.DR PO (00:09)
[2021-09-17 00:44] LABS: Troponin-I High Sensitivity 641.8 ng/L (<3.5-35.0)
[2021-09-17] MEDS: iohexoL 350 MG/ML 100 ML INFUS..BTL 75 ML IV (02:48)
[2021-09-17] MEDS: Albuterol Sulfate 90 MCG 8 GM INHALER 4 PUFF INHALE (03:04)
[2021-09-17 04:06] VITALS: BP 122/64; PULSE 68; RESP 18; O2SAT 100
--- NOTE | 2021-09-17 08:14 | PHA.MEDREC ---
Pharmacy Consult ? Medication Reconciliation Pharmacy has reviewed the medication reconciliation completed by Ousmane. Medications that patient no longer take were removed from list. Patient's dose of amlodpine is 5 mg instead of 2.5 mg Yojana Valdez, ToniD
[2021-09-17 08:26] VITALS: BP 114/50; PULSE 60; RESP 20; O2SAT 99
--- NOTE | 2021-09-17 08:27 | PC.NURSE ---
pt alert and oriented ,skin appropriate for ethnicity, respirations even and unlabored, ls diminished and some wheezing in the lower bases, pt denies pain at this time, vs stable, normal to lisette on the monitor
--- NOTE | 2021-09-17 09:21 | PM.IMHP ---
History of Present Illness Date of Service: 09/17/21 Chief Complaint: Fall This is an 81 yo, Guamanian speaking male, who is seen with internal audit consultant services present. He has a PMH as outlined below (obtained from the chart as the patient is a vague historian). Despite, the use of a Guamanian speaking internal audit consultant, history is difficult to obtain. Apparently, the patient fell at some point on the night preceeding admission and was unable to get up. Per ED notes, he was on the floor for 2 hours prior to family arriving. The patient reports no prodromal feelings. He denies loss of consciousness. He reports L chest pain, which he reports was present prior to the fall, but then states he hurt himself trying to get off the floor. He states the pain is non-radiating, 3/10 in severity. He is unable to describe its nature. He reports no changes to his breathing status. He denies any cough, fevers or chills. He reports he has been vaccinated for COVID 19 including booster. In the ED, he was found to be COVID positive. He has an elevated HS trop-I x 2; He was given aspirin and updrafts and admission was requested. This morning, a repeat trop is downtrending. CPK checked this morning is elevated >10k. He reports his pain is minimal right now and is requested a diet. Review of Systems Review of Systems: unreliable but negative except HPI PMFSH Medical History Allergic rhinitis Asthma COPD (chronic obstructive pulmonary disease) COPD (chronic obstructive pulmonary disease) High cholesterol Hyperlipidemia Hypertension Prostate CA Pertinent family history: unable to obtain, patient does not know Social History Alcohol intake: unknown Patient Tobacco Use Status: Never used Tobacco Use of substances other than those prescribed or required for medical reasons: No Advance Directives: No Advance Directives Information Provided: Yes Current occupational status: retired and disabled Current occupation: right handed Meds Allergies Allergy/AdvReac Type Severity Reaction Status Date / Time No Known Allergies Allergy Unknown UNKNOWN Verified 09/16/21 20:25 [NO KNOWN ALLERGIES] Active Medications: Current Medications Sodium Chloride (0.9 % Sodium Chloride Flush 3 Ml Syringe) 3 ml IVFLUSH QSHIFT ABDIFATAH Home Medications Medication Instructions Recorded Confirmed Last Taken Type acetaminophen 650 mg 1,300 mg PO Q8H PRN 05/29/20 09/17/21 Unknown History tablet,extended release albuterol sulfate 90 mcg/actuation 2 puff PO Q4-6H PRN 05/29/20 09/17/21 09/17/21 History aerosol inhaler aspirin 81 mg tablet,delayed 81 mg PO DAILY 05/29/20 09/17/21 07/08/20 History release cholecalciferol (vitamin D3) 25 25 mcg PO DAILY 05/29/20 09/17/21 07/08/20 History mcg (1,000 unit) tablet hydrochlorothiazide 12.5 mg tablet 12.5 mg PO DAILY 05/29/20 09/17/21 07/08/20 History montelukast 10 mg tablet 10 mg PO BEDTIME 05/29/20 09/17/21 07/07/20 History albuterol sulfate 1 amp INHALATION Q6H PRN 07/08/20 09/17/21 07/08/20 History atorvastatin 20 mg tablet 20 mg PO BEDTIME 07/08/20 09/17/21 07/07/20 History amlodipine 5 mg tablet 5 mg PO DAILY 09/17/21 09/17/21 Unknown History fluticasone propionate 220 1 puff PO BID 09/17/21 09/17/21 Unknown History mcg/actuation HFA aerosol inhaler (Flovent HFA) Physical Exam Vital Signs and Narrative: Vital Signs: Last Vital Signs Temp 99.3 F 09/16/21 21:07 Pulse 60 09/17/21 08:26 Resp 20 09/17/21 08:26 BP 114/50 L 09/17/21 08:26 Pulse Ox 99 09/17/21 08:26 BMI result Body Mass Index 28.1 Const: Other: Constitutional - Awake and Alert, No apparent distress Eyes - PERRLA, EOMI Cardiovascular - S1S2, RRR, No edema Respiratory - Normal lung expansion, Normal respiratory effort, No respiratory distress, CTA bilaterally Gastrointestinal - NT / ND; +BS; No rebound or guarding - No CVA tenderness Extremities - no calf tenderness bilaterally, no swelling Musculoskeletal - Normal inspection, normal ROM Skin - Warm/Dry Neurological - Disoriented to situation, place and time Psychological - Appropriate affect Results Labs CBC and Chem 7: 09/16/21 22:43 09/16/21 22:43 Labs: Laboratory Results - last 24 hr 09/16/21 09/16/21 09/16/21 22:43 22:43 22:43 MCV 89.2 MCH 30.6 MCHC 34.3 RDW 13.3 Plt Count 208 D MPV 10.6 Immature Gran % (Auto) 0.4 Neut % (Auto) 79.5 H Lymph % (Auto) 9.5 L [place] % (Auto) 10.1 Eos % (Auto) 0.1 Baso % (Auto) 0.4 Lymph # (Auto) 1.3 [place] # (Auto) 1.4 H Eos # (Auto) 0.0 Baso # (Auto) 0.1 Abs Immat Gran (auto) 0.06 H Absolute Neuts (auto) 10.8 H Absolute Nucleated RBC 0.000 Nucleated RBC % (auto) 0.0 Anion Gap 11 L Estim Creat Clear Calc 53.8 Estimated GFR > 60 Random Glucose 103 Calcium 8.5 D Magnesium 2.3 Total Bilirubin 0.7 AST 94 H ALT 41 H Alkaline Phosphatase 99 Troponin I High Sens Total Protein 6.5 Albumin 3.5 COVID-19 ([facility]) Positive A COVID-19 Clin Com See Note 09/16/21 09/17/21 22:43 00:06 MCV MCH MCHC RDW Plt Count MPV Immature Gran % (Auto) Neut % (Auto) Lymph % (Auto) [place] % (Auto) Eos % (Auto) Baso % (Auto) Lymph # (Auto) [place] # (Auto) Eos # (Auto) Baso # (Auto) Abs Immat Gran (auto) Absolute Neuts (auto) Absolute Nucleated RBC Nucleated RBC % (auto) Anion Gap Estim Creat Clear Calc Estimated GFR Random Glucose Calcium Magnesium Total Bilirubin AST ALT Alkaline Phosphatase Troponin I High Sens 606.5 H* 641.8 H* Total Protein Albumin COVID-19 ([facility]) COVID-19 Clin Com Imaging Radiologist's Impressions: Impressions Chest X-Ray 09/16/21 22:57 IMPRESSION: No acute intrathoracic. No fractures involving the spine or pneumothorax Thoracic Spine X-Ray 09/16/21 22:57 IMPRESSION: No acute intrathoracic. No fractures involving the spine or pneumothorax Chest CTA 09/17/21 02:45 IMPRESSION: 1. No central or proximal segmental pulmonary embolus identified. Evaluation of the distal vasculature is incomplete due to extensive respiratory motion artifact. 2. Reflux of contrast into the hepatic veins, which can be seen with elevated right heart pressures. 3. Thick-walled airways, which could reflect acute or chronic bronchitis. VTE: negative Assessment and Plan (1) Rhabdomyolysis: Status: Acute Plan This is an 81 yo M with a PMH of asthma/copd, hld, htn, prostate Ca (all obtained from previous documentation) who was brought into the ED after a fall. He is found to have rhabdomyolsysi and incidentally is COVID positive. He will be admitted for further work up and treatment. 1. Rhadomyolysis CPK >10k; start NS @ 100 cc/hr; will use IVF judiciously due to elevated BNP + signs on imaging with elevated RH pressures trend monitor renal function 2. Elevated trop-I / chest pain initially elevated to the NSTEMI range and hence, given a dose of aspirin + lovenox; suspected secondary to rhabdo hold off further anticoagulation and consult cardiology repeat EKG his chest pain is not clearly secondary to ischemic, possibly MSK in nature 3. COVID+ no hypoxia (saturations high 90s on RA) -- his oxygen which was placed in the ED has been removed and sats remain in the high 90s 4. HTN bp soft, hold antihypertensvies 5. Acute confusion vs undiagnosed dementia will await family input continue baseline meds as appropriate presumed Full code DVT pptx -- given Lovenox x 1 Attempted to call multiple numbers for family -- all went unanswered or are intactive Quality Stroke Does the patient have a stroke diagnosis?: No VTE Prior VTE?: No VTE Risk Level:: Medical - moderate - high VTE Device Contraindication: N/A - Device Ordered VTE Drug Contraindication: N/A - Med Ordered
[2021-09-17 09:25] LABS: B Type Natriuretic Peptide 218 pg/mL (<100)
[2021-09-17] MEDS: Enoxaparin Sodium 80 MG/0.8 ML SYRINGE SUBCUT (09:33)
[2021-09-17 09:38] LABS: Troponin-I High Sensitivity 446.3 ng/L (<3.5-35.0)
[2021-09-17] MEDS: 0.9 % Sodium Chloride 1,000 ML 100 ML IVCONT ×2 (11:16→20:32)
--- NOTE | 2021-09-17 12:24 | P.CONCA_ITS ---
History of Present Illness History of Present Illness Date of Service: 09/17/21 Requesting physician: Live Chris Chief complaint: Elevated troponin Narrative: 81-year-old gentleman who has been found to be COVID-19 positive and primarily presented with a mechanical fall. He said he lost his balance and fell backward. He was noted to have elevated CPK and troponin levels. He was also complaining of some left-sided chest pain. He was seen with a certified court/medical interpreter and was describing 2/10 chest discomfort which is on the left side of his chest. While auscultating had severe pain at the side and there was clear tenderness. Otherwise denying any breathing issues. No other concerns. [facility] Past Medical History Medical History Allergic rhinitis Asthma COPD (chronic obstructive pulmonary disease) COPD (chronic obstructive pulmonary disease) High cholesterol Hyperlipidemia Hypertension Prostate CA Social History Social History Alcohol intake: unknown Patient Tobacco Use Status: Never used Tobacco Use of substances other than those prescribed or required for medical reasons: No Advance Directives: No Advance Directives Information Provided: Yes Current occupational status: retired and disabled Current occupation: right handed Meds Allergies Allergy/AdvReac Type Severity Reaction Status Date / Time No Known Allergies Allergy Unknown UNKNOWN Verified 09/16/21 20:25 [NO KNOWN ALLERGIES] Active Medications: Current Medications Acetaminophen (Acetaminophen 325 Mg Tablet) 650 mg PO Q6H PRN PRN Reason: Pain, Mild (Pain Scale 1-3) Sodium Chloride (Ns) 1,000 mls @ 100 mls/hr IVCONT .Q10H [facility] Last Admin: 09/17/21 11:16 Dose: 100 mls/hr Documented by: Ondansetron HCl (Ondansetron Hcl 4 Mg/2 Ml Vial) 4 mg IVPUSH Q8H PRN PRN Reason: Nausea and Vomiting Sodium Chloride (0.9 % Sodium Chloride Flush 3 Ml Syringe) 3 ml IVFLUSH QSHIFT [facility] Home Medications Medication Instructions Recorded Confirmed Last Taken Type acetaminophen 650 mg 1,300 mg PO Q8H PRN 05/29/20 09/17/21 Unknown History tablet,extended release albuterol sulfate 90 mcg/actuation 2 puff PO Q4-6H PRN 0209/17/21 09/17/21 History aerosol inhaler aspirin 81 mg tablet,delayed 81 mg PO DAILY 05/29/20 09/17/21 07/08/20 History release cholecalciferol (vitamin D3) 25 25 mcg PO DAILY 05/29/20 09/17/21 07/08/20 History mcg (1,000 unit) tablet hydrochlorothiazide 12.5 mg tablet 12.5 mg PO DAILY 05/29/20 09/17/21 07/08/20 History montelukast 10 mg tablet 10 mg PO BEDTIME 05/29/20 09/17/21 07/07/20 History albuterol sulfate 1 amp INHALATION Q6H PRN 07/08/20 09/17/21 07/08/20 History atorvastatin 20 mg tablet 20 mg PO BEDTIME 07/08/20 09/17/21 07/07/20 History amlodipine 5 mg tablet 5 mg PO DAILY 09/17/21 09/17/21 Unknown History fluticasone propionate 220 1 puff PO BID 09/17/21 09/17/21 Unknown History mcg/actuation HFA aerosol inhaler (Flovent HFA) Physical Exam Vital Signs: Vital Signs: Last Vital Signs Temp 99.3 F 09/16/21 21:07 Pulse 60 09/17/21 08:26 Resp 20 09/17/21 08:26 BP 114/50 L 09/17/21 08:26 Pulse Ox 99 09/17/21 08:26 BMI result Body Mass Index 28.1 GENERAL APPEARANCE: in no acute distress, pleasant. NECK: no carotid bruit, no jugular venous distention. SKIN: no suspicious lesions, warm and dry. HEART: no murmurs, regular rate and rhythm. LUNGS: clear to auscultation bilaterally. Left-sided chest wall tenderness. ABDOMEN: soft, nontender. EXTREMITIES: no edema. PERIPHERAL PULSES: equal. NEUROLOGIC: No gross deficits, AAO X 3 Objective Labs and Meds Result diagrams: 09/16/21 22:43 09/16/21 22:43 Lab results: Laboratory Results - last 24 hr 09/16/21 09/16/21 09/16/21 22:43 22:43 22:43 WBC 13.6 H RBC 4.61 Hgb 14.1 Hct 41.1 L MCV 89.2 MCH 30.6 MCHC 34.3 RDW 13.3 Plt Count 208 D MPV 10.6 Immature Gran % (Auto) 0.4 Neut % (Auto) 79.5 H Lymph % (Auto) 9.5 L [place] % (Auto) 10.1 Eos % (Auto) 0.1 Baso % (Auto) 0.4 Lymph # (Auto) 1.3 [place] # (Auto) 1.4 H Eos # (Auto) 0.0 Baso # (Auto) 0.1 Abs Immat Gran (auto) 0.06 H Absolute Neuts (auto) 10.8 H Absolute Nucleated RBC 0.000 Nucleated RBC % (auto) 0.0 Sodium 138 Potassium 4.4 Chloride 110 H Carbon Dioxide 21 L Anion Gap 11 L BUN 12 Creatinine 1.10 Estim Creat Clear Calc 53.8 Estimated GFR > 60 Random Glucose 103 Calcium 8.5 D Magnesium 2.3 Total Bilirubin 0.7 AST 94 H ALT 41 H Alkaline Phosphatase 99 Total Creatine Kinase Troponin I High Sens B-Natriuretic Peptide Total Protein 6.5 Albumin 3.5 COVID-19 ([facility]) Positive A COVID-19 [employer] See Note 09/16/21 09/17/21 09/17/21 22:43 00:06 08:57 WBC RBC Hgb Hct MCV MCH MCHC RDW Plt Count MPV Immature Gran % (Auto) Neut % (Auto) Lymph % (Auto) [place] % (Auto) Eos % (Auto) Baso % (Auto) Lymph # (Auto) [place] # (Auto) Eos # (Auto) Baso # (Auto) Abs Immat Gran (auto) Absolute Neuts (auto) Absolute Nucleated RBC Nucleated RBC % (auto) Sodium Potassium Chloride Carbon Dioxide Anion Gap BUN Creatinine Estim Creat Clear Calc Estimated GFR Random Glucose Calcium Magnesium Total Bilirubin AST ALT Alkaline Phosphatase Total Creatine Kinase Troponin I High Sens 606.5 H* 641.8 H* B-Natriuretic Peptide 218 H Total Protein Albumin COVID-19 ([facility]) COVID-[employer] 09/17/21 09/17/21 08:57 08:57 WBC RBC Hgb Hct MCV MCH MCHC RDW Plt Count MPV Immature Gran % (Auto) Neut % (Auto) Lymph % (Auto) [place] % (Auto) Eos % (Auto) Baso % (Auto) Lymph # (Auto) [place] # (Auto) Eos # (Auto) Baso # (Auto) Abs Immat Gran (auto) Absolute Neuts (auto) Absolute Nucleated RBC Nucleated RBC % (auto) Sodium Potassium Chloride Carbon Dioxide Anion Gap BUN Creatinine Estim Creat Clear Calc Estimated GFR Random Glucose Calcium Magnesium Total Bilirubin AST ALT Alkaline Phosphatase Total Creatine Kinase 10631 H Troponin I High Sens 446.3 H* B-Natriuretic Peptide Total Protein Albumin COVID-19 ([facility]) COVID-19 Clin Com Imaging Radiologist's impression: Impressions Chest X-Ray 09/16/21 22:57 IMPRESSION: No acute intrathoracic. No fractures involving the spine or pneumothorax Thoracic Spine X-Ray 09/16/21 22:57 IMPRESSION: No acute intrathoracic. No fractures involving the spine or pneumothorax Chest CTA 09/17/21 02:45 IMPRESSION: 1. No central or proximal segmental pulmonary embolus identified. Evaluation of the distal vasculature is incomplete due to extensive respiratory motion artifact. 2. Reflux of contrast into the hepatic veins, which can be seen with elevated right heart pressures. 3. Thick-walled airways, which could reflect acute or chronic bronchitis. VTE: negative Assessment and Plan (1) Elevated troponin: Status: Acute (2) Rhabdomyolysis: Status: Acute (3) Non-cardiac chest pain: Status: Acute Plan 81-year-old gentleman with COVID-19 infection and mechanical fall. He was noted to have CPK level of 10,659. His troponins were 606, 641 and 446. BNP 218. He has noncardiac left-sided chest pain likely musculoskeletal in origin. I think the elevated troponin level is related rhabdomyolysis. He should be gently hydrated. Signing off for now. Thank you for allowing me to participate in the care of your patient. Please feel free to contact me if you have any questions. Procedures Date of Service Date of Service: 09/17/21
[2021-09-17 16:00] VITALS: BP 133/46; PULSE 67; RESP 16; TEMP 36.8; O2SAT 99
--- NOTE | 2021-09-17 20:59 | MHC.CM.PN ---
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 Covid positive. Moderna x2 & Pfizer booster (07/24/20, 08/21/20 & 03/03/21) Record reviewed. Pt admits to using a walker, cane and nebulizer. Pt then began yelling that he need his inhaler, that he has asthma. Nurse called. Pt in no resp distress. Speaking in full sentences. Yelling at CM to get out. 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 Refuses to sign IMM. Yelling he will need an ambulance when he goes home.Wants to go to his room. Explained that we are waiting for a bed. Pt becoming more agitated. Yelling in [place]ican that he will kick CM. CM ended interview. Will Call HCP. HCP/son Oli Son ([phone]). HCP on file. Message left to return call. IMM reviewed 09/17. Will mail. Attempted to call son Kirit Son, who is listed as contact. Telephone number disconnected. Unknown if pt lives alone or with someone. Unknown PCP. Unable to review d/c plan with patient or family. Pt has a daughter who he says helps him. No contact information available. CM will need to meet with patient again when he is more agreeable to interview. CM will follow for d/c needs.
[2021-09-17 21:03] VITALS: BP 131/66; PULSE 71; RESP 16; TEMP 36.6; O2SAT 97
[2021-09-17] MEDS: Acetaminophen 325 MG TABLET 650 MG PO (21:50)
[2021-09-17 23:02] LABS: Appearance Urine CLEAR; Color Urine YELLOW; Glucose Urine UA NEG (NEG); Leukocyte Esterase Urine NEG (NEG); Nitrite Urine NEG (NEG); UACC Culture Trigger NO; Urine Blood 1+ (NEG); Urine Ketones NEG (NEG); Urine Protein NEG (NEG-TRACE)
[2021-09-17 23:13] LABS: Amorphous Sediment Urine 3+ /LPF; Squamous Epithelial Cell Urine TRACE /LPF; WBC Urine 0 /HPF (0-4)
--- NOTE | 2021-09-18 05:27 | PC.NURSE ---
I assumed care of Luan at 2300. Since that time he has been asleep, wakes to verbal stimuli. There is no chest pain. Respirations are non-labored. he has remained calm, cooperative and makes eye contact with RN. he takes Po fluids without difficulty and is aware that he continues to await a bed assignment. Will continue to monitor.
[2021-09-18] MEDS: 0.9 % Sodium Chloride 1,000 ML 100 ML IVCONT (06:13)
[2021-09-18 07:10] LABS: Hematocrit 41.1 % (42.0-52.0); Hemoglobin 13.5 g/dl (14.0-18.0); Mean Corpuscular HGB Conc 32.8 g/dl (31.0-36.0); Mean Corpuscular Hemoglobin 30.3 pg (27.0-33.0); Mean Corpuscular Volume 92.2 fL (80.0-98.0); Mean Platelet Volume 10.7 fL (9.4-12.4); Platelet Count 167 X10*3/uL (160-400); Red Blood Count 4.46 X10*6/uL (4.60-5.80); Red Cell Distribution Width 13.9 % (11.0-16.0); White Blood Count 7.2 X10*3/uL (4.8-10.8)
[2021-09-18 07:24] LABS: Anion Gap 12 (12-20); Blood Urea Nitrogen 12 mg/dL (9-16); Calcium 8.2 mg/dL (8.4-10.2); Carbon Dioxide 22 mmol/L (22-29); Chloride 107 mmol/L (96-108); Creatinine Clr Calc Pharmacy 68.1; Estimated Glomerular Filt Rate > 60; Glucose Random 84 mg/dL (60-115); Potassium 4.3 mmol/L (3.3-5.1); Sodium 137 mmol/L (135-145)
--- NOTE | 2021-09-18 09:38 | P.PNIM_ITS ---
Subjective Subjective Date of Service: 09/18/21 Interval History: f/u on fall, elevated CPK Itnerval history: confused, CPK is coming down Review of Systems confused, no fever, no chest pain Physical Exam Vital Signs: Vital Signs: Last Vital Signs Temp 97.9 F 09/17/21 21:03 Pulse 71 09/17/21 21:03 Resp 16 09/17/21 21:03 BP 131/66 09/17/21 21:03 Pulse Ox 97 09/17/21 21:03 BMI result Body Mass Index 28.1 Const: Other: General: confused, baseline Resp: CTA bilateral CVS: S1,S2,RRR GI: +BS, NT, no distention Skin: No rash Neuro: motor grossly intact Psych: appropriate affect Objective Data Active Medications Acetaminophen (Acetaminophen 325 Mg Tablet) 650 mg PO Q6H PRN PRN Reason: Pain, Mild (Pain Scale 1-3) Last Admin: 09/17/21 21:50 Dose: 650 mg Documented by: LUIS FERNANDO Sodium Chloride (Ns) 1,000 mls @ 100 mls/hr IVCONT .Q10H [facility] Last Admin: 09/18/21 06:13 Dose: 100 mls/hr Documented by: CAITIE Ondansetron HCl (Ondansetron Hcl 4 Mg/2 Ml Vial) 4 mg IVPUSH Q8H PRN PRN Reason: Nausea and Vomiting Sodium Chloride (0.9 % Sodium Chloride Flush 3 Ml Syringe) 3 ml IVFLUSH QSHIFT [facility] Last Admin: 09/18/21 07:23 Dose: Not Given Documented by: TARAN Non-Admin Reason: IV Running Labs CBC & Chem 7: 09/18/21 06:46 09/18/21 06:46 Labs: Laboratory Results - last 24 hr 09/17/21 09/17/21 09/17/21 08:57 08:57 22:53 MCV MCH MCHC RDW Plt Count MPV Absolute Nucleated RBC Nucleated RBC % (auto) Anion Gap Estim Creat Clear Calc Estimated GFR Random Glucose Calcium Total Creatine Kinase 75020 H Troponin I High Sens 446.3 H* Urine Color YELLOW Urine Appearance CLEAR Urine pH 7.0 Ur Specific Slaughter 1.020 Urine Protein NEG Urine Glucose (UA) NEG Urine Ketones NEG Urine Blood 1+ H Urine Nitrite NEG Ur Leukocyte Esterase NEG Urine RBC 1-4 Urine WBC 0 Ur Squamous Epith Cells TRACE Amorphous Sediment 3+ Urine Bacteria NONE 09/18/21 09/18/21 06:46 06:46 MCV 92.2 MCH 30.3 MCHC 32.8 RDW 13.9 Plt Count 167 MPV 10.7 Absolute Nucleated RBC 0.000 Nucleated RBC % (auto) 0.0 Anion Gap 12 Estim Creat Clear Calc 68.1 Estimated GFR > 60 Random Glucose 84 Calcium 8.2 L Total Creatine Kinase Troponin I High Sens Urine Color Urine Appearance Urine pH Ur Specific [place]aughter Urine Protein Urine Glucose (UA) Urine Ketones Urine Blood Urine Nitrite Ur Leukocyte Esterase Urine RBC Urine WBC Ur Squamous Epith Cells Amorphous Sediment Urine Bacteria Assessment and Plan (1) COVID-19: Status: Acute (2) Rhabdomyolysis: Status: Acute Plan M with a PMH of asthma/copd, hld, htn, prostate Ca (all obtained from previous documentation) who was brought into the ED after a fall. He is found to have rhabdomyolsysi and incidentally is COVID positive. He will be admitted for further work up and treatment. 1. Rhadomyolysis CPK >10k; CPK down to 4K, continue IV and repeat in the morning 2. Elevated trop-I --likely from Rhabdo, seen by cardio, no indication further testing at thist time 3. COVID+ no hypoxia (saturations high 90s on RA) -- no further treatment warranted 4. HTN--BP normal, 5. Acute confusion vs undiagnosed dementia will await family input--likely chronic dementia continue baseline meds as appropriate presumed Full code DVT pptx -- given Lovenox x 1 PT recommending STR Inapatient: Rhabdo needs IV, Covid, needs placement.. when actue issues resolves Quality Quality Stroke Does the patient have a stroke diagnosis?: No VTE Prior VTE?: No VTE Risk Level:: Medical - moderate - high VTE Device Contraindication: N/A - Device Ordered VTE Drug Contraindication: N/A - Med Ordered
[2021-09-18] MEDS: Heparin Sodium,Porcine 5,000 UNIT/ML VIAL 5000 UNIT SUBCUT ×2 (10:27→19:08)
[2021-09-18 11:13] VITALS: BP 131/66; PULSE 71; O2SAT 97
[2021-09-18] MEDS: 0.9 % Sodium Chloride Flush 3 ML SYRINGE IVFLUSH (15:48)
[2021-09-18] MEDS: Acetaminophen 325 MG TABLET 650 MG PO (15:48)
[2021-09-18 15:49] VITALS: BP 152/74; PULSE 79; RESP 20; O2SAT 97
--- NOTE | 2021-09-18 16:02 | MHC.CM.PN ---
PT WILL NEED STR AND IS COVID-19 POSITIVE REFERRALS MADE
--- NOTE | 2021-09-18 17:04 | PC.NURSE ---
patient was inc of urine ,bed bath given ,and bedding changed .
[2021-09-18 20:00] VITALS: BP 184/72; PULSE 79; RESP 18; TEMP 36.5; O2SAT 96
[2021-09-19] VITALS: BP 140/53; PULSE 70; RESP 17; TEMP 36.4; O2SAT 95
[2021-09-19] MEDS: 0.9 % Sodium Chloride 1,000 ML 100 ML IVCONT (02:36)
[2021-09-19 03:31] VITALS: BP 157/87; PULSE 62; RESP 16; TEMP 36.3; O2SAT 98
[2021-09-19 08:00] VITALS: BP 161/79; PULSE 72; RESP 19; TEMP 36.9
[2021-09-19] MEDS: Acetaminophen 325 MG TABLET 650 MG PO (08:58)
[2021-09-19] MEDS: Heparin Sodium,Porcine 5,000 UNIT/ML VIAL 5000 UNIT SUBCUT ×2 (08:58→17:20)
--- NOTE | 2021-09-19 15:10 | HO.PM.IMPN ---
Subjective Subjective Date of Service: 09/19/21 Interval History: f/u on fall, elevated CPK Itnerval history: less confused, no new complaint Review of Systems confused, no fever, no chest pain Physical Exam Vital Signs: Vital Signs: Last Vital Signs Temp 98.4 F 09/19/21 08:00 Pulse 72 09/19/21 08:00 Resp 19 09/19/21 08:00 BP 161/79 H 09/19/21 08:00 Pulse Ox 98 09/19/21 03:31 BMI result Body Mass Index 28.1 Const: Other: General: confused, baseline Resp: CTA bilateral CVS: S1,S2,RRR GI: +BS, NT, no distention Skin: No rash Neuro: motor grossly intact Psych: appropriate affect Objective Data Active Medications Acetaminophen (Acetaminophen 325 Mg Tablet) 650 mg PO Q6H PRN PRN Reason: Pain, Mild (Pain Scale 1-3) Last Admin: 09/19/21 08:58 Dose: 650 mg Documented by: TULIO Heparin Sodium (Porcine) (Heparin Sodium,Porcine 5,000 Unit/Ml Vial) 5,000 unit SUBCUT Q8H [facility] Last Admin: 09/19/21 08:58 Dose: 5,000 unit Documented by: TULIO Ondansetron HCl (Ondansetron Hcl 4 Mg/2 Ml Vial) 4 mg IVPUSH Q8H PRN PRN Reason: Nausea and Vomiting Sodium Chloride (0.9 % Sodium Chloride Flush 3 Ml Syringe) 3 ml IVFLUSH QSHIFT [facility] Last Admin: 09/18/21 23:56 Dose: Not Given Documented by: YOANNA Non-Admin Reason: Med Not Available Labs CBC & Chem 7: 09/18/21 06:46 09/18/21 06:46 Assessment and Plan (1) Non-cardiac chest pain: Status: Acute (2) Rhabdomyolysis: Status: Acute (3) COVID-19: Status: Acute Plan M with a PMH of asthma/copd, hld, htn, prostate Ca (all obtained from previous documentation) who was brought into the ED after a fall. He is found to have rhabdomyolsysi and incidentally is COVID positive. He will be admitted for further work up and treatment. 1. Rhadomyolysis CPK >10k; CPK down to 4K, check CPK tomorrow 2. Elevated trop-I --likely from Rhabdo, no further testing 3. COVID+ no hypoxia (saturations high 90s on RA) -- no further treatment warranted 4. HTN--BP normal, 5. Acute confusion vs undiagnosed dementia will await family input--likely chronic dementia continue baseline meds as appropriate presumed Full code DVT pptx -- given Lovenox x 1 PT recommending STR Inapatient: Rhabdo needs IV, Covid, needs placement.. when actue issues resolves Quality Quality Stroke Does the patient have a stroke diagnosis?: No VTE Prior VTE?: No VTE Risk Level:: Medical - moderate - high VTE Device Contraindication: N/A - Device Ordered VTE Drug Contraindication: N/A - Med Ordered
[2021-09-19 19:30] VITALS: BP 133/55; PULSE 62; RESP 18; O2SAT 95
[2021-09-20] MEDS: Heparin Sodium,Porcine 5,000 UNIT/ML VIAL 5000 UNIT SUBCUT ×3 (00:26→15:59)
[2021-09-20] MEDS: 0.9 % Sodium Chloride Flush 3 ML SYRINGE IVFLUSH ×2 (00:52→07:41)
[2021-09-20 01:24] VITALS: BP 161/87; PULSE 57; RESP 21; TEMP 36.5; O2SAT 95
[2021-09-20 04:33] VITALS: BP 160/58; PULSE 65; RESP 17; TEMP 36.4; O2SAT 100
[2021-09-20 07:37] VITALS: BP 154/64; PULSE 66; RESP 17; TEMP 36.4; O2SAT 96
[2021-09-20 08:52] LABS: Anion Gap 12 (12-20); Blood Urea Nitrogen 15 mg/dL (9-16); Calcium 9.2 mg/dL (8.4-10.2); Carbon Dioxide 25 mmol/L (22-29); Chloride 105 mmol/L (96-108); Creatinine Clr Calc Pharmacy 64.4; Estimated Glomerular Filt Rate > 60; Glucose Random 108 mg/dL (60-115); Potassium 4.3 mmol/L (3.3-5.1); Sodium 138 mmol/L (135-145)
[2021-09-20] MEDS: amLODIPine Besylate 5 MG TABLET PO (10:49)
[2021-09-20] MEDS: Albuterol Sulfate 90 MCG 8 GM INHALER 2 PUFF INHALE (10:49)
[2021-09-20] MEDS: Cholecalciferol (Vitamin D3) 25 MCG TABLET PO (10:49)
[2021-09-20] MEDS: hydroCHLOROthiazide 12.5 MG TABLET PO (10:50)
[2021-09-20] MEDS: Aspirin Enteric Coated 81 MG TABLET.DR PO (10:50)
--- NOTE | 2021-09-20 11:21 | HO.PM.IMPN ---
Subjective Subjective Date of Service: 09/20/21 Interval History: f/u on fall, elevated CPK Itnerval history: no confusion, no sob, no fever Review of Systems no fever no confusion Physical Exam Vital Signs: Vital Signs: Last Vital Signs Temp 97.6 F 09/20/21 07:37 Pulse 66 09/20/21 07:37 Resp 17 09/20/21 07:37 BP 154/64 H 09/20/21 07:37 Pulse Ox 96 09/20/21 07:37 BMI result Body Mass Index 28.1 Const: Other: General: confused, baseline Resp: CTA bilateral CVS: S1,S2,RRR GI: +BS, NT, no distention Skin: No rash Neuro: motor grossly intact Psych: appropriate affect Objective Data Active Medications Acetaminophen (Acetaminophen 325 Mg Tablet) 650 mg PO Q6H PRN PRN Reason: Pain, Mild (Pain Scale 1-3) Last Admin: 09/19/21 08:58 Dose: 650 mg Documented by: TULIO Albuterol Sulfate (Albuterol Sulfate (0.083%) 2.5 Mg/3 Ml Vial.Neb) 2.5 mg INHALE Q6H PRN PRN Reason: wheezing Albuterol Sulfate (Albuterol Sulfate 90 Mcg 8 Gm Inhaler) 2 puff INHALE Q4H PRN PRN Reason: Shortness Of Breath Or Wheezing Last Admin: 09/20/21 10:49 Dose: 2 puff Documented by: AMENA Amlodipine Besylate (Amlodipine Besylate 5 Mg Tablet) 5 mg PO DAILY [facility]; Protocol Last Admin: 09/20/21 10:49 Dose: 5 mg Documented by: AMENA Aspirin (Aspirin Enteric Coated 81 Mg Tablet.Dr) 81 mg PO DAILY [facility] Last Admin: 09/20/21 10:50 Dose: 81 mg Documented by: AMENA Atorvastatin Calcium (Atorvastatin Calcium 20 Mg Tablet) 20 mg PO BEDTIME [facility] Fluticasone Propionate (Fluticasone Propionate 250 Mcg Blst.W.Dev) 1 puff INHALE RBID [facility] Heparin Sodium (Porcine) (Heparin Sodium,Porcine 5,000 Unit/Ml Vial) 5,000 unit SUBCUT Q8H [facility] Last Admin: 09/20/21 07:41 Dose: 5,000 unit Documented by: AMENA Hydrochlorothiazide (Hydrochlorothiazide 12.5 Mg Tablet) 12.5 mg PO DAILY [facility]; Protocol Last Admin: 09/20/21 10:50 Dose: 12.5 mg Documented by: AMENA Montelukast Sodium (Montelukast Sodium 10 Mg Tablet) 10 mg PO BEDTIME [facility] Ondansetron HCl (Ondansetron Hcl 4 Mg/2 Ml Vial) 4 mg IVPUSH Q8H PRN PRN Reason: Nausea and Vomiting Sodium Chloride (0.9 % Sodium Chloride Flush 3 Ml Syringe) 3 ml IVFLUSH QSHIFT [facility] Last Admin: 09/20/21 07:41 Dose: 3 ml Documented by: AMENA Vitamin D (Cholecalciferol (Vitamin D3) 25 Mcg Tablet) 25 mcg PO DAILY [facility] Last Admin: 09/20/21 10:49 Dose: 25 mcg Documented by: AMENA Labs CBC & Chem 7: 09/18/21 06:46 09/20/21 07:59 Labs: Laboratory Results - last 24 hr 09/20/21 07:59 Anion Gap 12 Estim Creat Clear Calc 64.4 Estimated GFR > 60 Random Glucose 108 Calcium 9.2 D Total Creatine Kinase 4301 H D Assessment and Plan (1) Non-cardiac chest pain: Status: Acute (2) Rhabdomyolysis: Status: Acute (3) COVID-19: Status: Acute Plan M with a PMH of asthma/copd, hld, htn, prostate Ca (all obtained from previous documentation) who was brought into the ED after a fall. He is found to have rhabdomyolsysi and incidentally is COVID positive. He will be admitted for further work up and treatment. 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 Elevated trop-I --likely from Rhabdo, no further testing 3. COVID+ no hypoxia (saturations high 90s on RA) -- no further treatment warranted 4. HTN--BP normal, 5. Acute confusion vs undiagnosed dementia will await family input--likely chronic dementia continue baseline meds as appropriate presumed Full code DVT pptx -- given Lovenox x 1 PT recommending STR Inapatient: Rhabdo needs IV, Covid, needs placement.. when actue issues resolves Quality Quality Stroke Does the patient have a stroke diagnosis?: No VTE Prior VTE?: No VTE Risk Level:: Medical - moderate - high VTE Device Contraindication: N/A - Device Ordered VTE Drug Contraindication: N/A - Med Ordered
[2021-09-20 13:00] VITALS: BP 169/64; PULSE 60; RESP 20; TEMP 36.6; O2SAT 95
[2021-09-20] MEDS: 0.9 % Sodium Chloride 1,000 ML 100 ML IVCONT ×2 (13:42→22:03)
[2021-09-20 17:25] VITALS: BP 156/72; PULSE 62; RESP 17; TEMP 36.2; O2SAT 97
[2021-09-20] MEDS: Atorvastatin Calcium 20 MG TABLET PO (22:02)
[2021-09-20] MEDS: Montelukast Sodium 10 MG TABLET PO (22:02)
[2021-09-21] VITALS: BP 136/85; PULSE 73; RESP 18; TEMP 36.6; O2SAT 97
--- NOTE | 2021-09-21 | ECG_ITS ---
Test Reason : cp Blood Pressure : / mmHG Vent. Rate : 058 BPM Atrial Rate : 058 BPM P-R Int : 150 ms QRS Dur : 084 ms QT Int : 400 ms P-R-T Axes : 084 072 114 degrees QTc Int : 392 ms Sinus bradycardia with Premature atrial complexes in a pattern of bigeminy Nonspecific ST and T wave abnormality Abnormal ECG When compared with ECG of 17-SEP-2021 11:04, Premature atrial complexes are now Present Referred By: Anshu Mcmullen Electronically Signed By:ALLIE BENITEZ MD
[2021-09-21 04:00] VITALS: BP 137/60; PULSE 70; RESP 18; TEMP 36.6; O2SAT 96
[2021-09-21 07:55] VITALS: BP 150/80; PULSE 71; RESP 22; TEMP 36.8; O2SAT 95
[2021-09-21] MEDS: Heparin Sodium,Porcine 5,000 UNIT/ML VIAL 5000 UNIT SUBCUT ×2 (07:56→16:14)
[2021-09-21] MEDS: Albuterol Sulfate 90 MCG 8 GM INHALER 2 PUFF INHALE ×3 (07:56→19:33)
[2021-09-21] MEDS: 0.9 % Sodium Chloride Flush 3 ML SYRINGE IVFLUSH ×3 (07:56→22:40)
[2021-09-21] MEDS: amLODIPine Besylate 5 MG TABLET PO (07:57)
[2021-09-21] MEDS: Aspirin Enteric Coated 81 MG TABLET.DR PO (07:57)
[2021-09-21] MEDS: Cholecalciferol (Vitamin D3) 25 MCG TABLET PO (07:57)
[2021-09-21] MEDS: hydroCHLOROthiazide 12.5 MG TABLET PO (07:57)
--- NOTE | 2021-09-21 08:45 | MHC.CM.PN ---
ADDITIONAL REFERRALS PLACED HOWEVER D/T PT BEING COVID + AND UNLIKELY PT WILL BE PLACED TODAY. CM WILL CONT TO FOLLOW D/C NEEDS AND REFERRALS FOR PLACEMENT.
--- NOTE | 2021-09-21 10:48 | HO.PM.IMPN ---
Subjective Subjective Date of Service: 09/21/21 Interval History: f/u on fall, elevated CPK Itnerval history: no confusion, no sob, no fever, wants albuterol Review of Systems no fever no confusion Physical Exam Vital Signs: Vital Signs: Last Vital Signs Temp 98.2 F 09/21/21 07:55 Pulse 71 09/21/21 07:55 Resp 22 H 09/21/21 07:55 BP 150/80 H 09/21/21 07:55 Pulse Ox 95 09/21/21 07:55 BMI result Body Mass Index 28.1 Const: Other: General: confused, baseline Resp: CTA bilateral CVS: S1,S2,RRR GI: +BS, NT, no distention Skin: No rash Neuro: motor grossly intact Psych: appropriate affect Objective Data Active Medications Acetaminophen (Acetaminophen 325 Mg Tablet) 650 mg PO Q6H PRN PRN Reason: Pain, Mild (Pain Scale 1-3) Last Admin: 09/19/21 08:58 Dose: 650 mg Documented by: TULIO Albuterol Sulfate (Albuterol Sulfate (0.083%) 2.5 Mg/3 Ml Vial.Neb) 2.5 mg INHALE Q6H PRN PRN Reason: wheezing Albuterol Sulfate (Albuterol Sulfate 90 Mcg 8 Gm Inhaler) 2 puff INHALE Q4H PRN PRN Reason: Shortness Of Breath Or Wheezing Last Admin: 09/21/21 07:56 Dose: 2 puff Documented by: AMENA Amlodipine Besylate (Amlodipine Besylate 5 Mg Tablet) 5 mg PO DAILY [facility]; Protocol Last Admin: 09/21/21 07:57 Dose: 5 mg Documented by: AMENA Aspirin (Aspirin Enteric Coated 81 Mg Tablet.Dr) 81 mg PO DAILY [facility] Last Admin: 09/21/21 07:57 Dose: 81 mg Documented by: AMENA Atorvastatin Calcium (Atorvastatin Calcium 20 Mg Tablet) 20 mg PO BEDTIME [facility] Last Admin: 09/20/21 22:02 Dose: 20 mg Documented by: GREG Fluticasone Propionate (Fluticasone Propionate 250 Mcg Blst.W.Dev) 1 puff INHALE RBID [facility] Last Admin: 09/21/21 07:49 Dose: Not Given Documented by: MARCELLO Non-Admin Reason: Med Not Available Heparin Sodium (Porcine) (Heparin Sodium,Porcine 5,000 Unit/Ml Vial) 5,000 unit SUBCUT Q8H [facility] Last Admin: 09/21/21 07:56 Dose: 5,000 unit Documented by: AMENA Hydrochlorothiazide (Hydrochlorothiazide 12.5 Mg Tablet) 12.5 mg PO DAILY [facility]; Protocol Last Admin: 09/21/21 07:57 Dose: 12.5 mg Documented by: AMENA Sodium Chloride (Ns) 1,000 mls @ 100 mls/hr IVCONT .Q10H [facility] Last Admin: 09/21/21 10:21 Dose: Not Given Documented by: AMENA Non-Admin Reason: IV Running Montelukast Sodium (Montelukast Sodium 10 Mg Tablet) 10 mg PO BEDTIME [facility] Last Admin: 09/20/21 22:02 Dose: 10 mg Documented by: GREG Ondansetron HCl (Ondansetron Hcl 4 Mg/2 Ml Vial) 4 mg IVPUSH Q8H PRN PRN Reason: Nausea and Vomiting Sodium Chloride (0.9 % Sodium Chloride Flush 3 Ml Syringe) 3 ml IVFLUSH QSHIFT [facility] Last Admin: 09/21/21 07:56 Dose: 3 ml Documented by: AMENA Vitamin D (Cholecalciferol (Vitamin D3) 25 Mcg Tablet) 25 mcg PO DAILY [facility] Last Admin: 09/21/21 07:57 Dose: 25 mcg Documented by: AMENA Labs CBC & Chem 7: 09/18/21 06:46 09/20/21 07:59 Labs: Laboratory Results - last 24 hr 09/21/21 07:59 Total Creatine Kinase 2019 H D Assessment and Plan (1) Non-cardiac chest pain: Status: Acute (2) Rhabdomyolysis: Status: Acute (3) COVID-19: Status: Acute Plan M with a PMH of asthma/copd, hld, htn, prostate Ca (all obtained from previous documentation) who was brought into the ED after a fall. He is found to have rhabdomyolsysi and incidentally is COVID positive. He will be admitted for further work up and treatment. 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 Elevated trop-I --likely from Rhabdo, no further testing 3. COVID+ no hypoxia (saturations high 90s on RA) -- no further treatment warranted 4. HTN--BP normal, 5. Acute confusion vs undiagnosed dementia will await family input--likely chronic dementia continue baseline meds as appropriate presumed Full code DVT pptx -- given Lovenox x 1 PT recommending STR when bed available Inapatient: Rhabdo needs IV, Covid, needs placement.. when actue issues resolves Quality Quality Stroke Does the patient have a stroke diagnosis?: No VTE Prior VTE?: No VTE Risk Level:: Medical - moderate - high VTE Device Contraindication: N/A - Device Ordered VTE Drug Contraindication: N/A - Med Ordered
[2021-09-21 15:07] VITALS: BP 145/61; PULSE 73; RESP 20; TEMP 36.7; O2SAT 95
[2021-09-21] MEDS: 0.9 % Sodium Chloride 1,000 ML 100 ML IVCONT (16:15)
[2021-09-21] MEDS: Atorvastatin Calcium 20 MG TABLET PO (22:40)
[2021-09-21] MEDS: Montelukast Sodium 10 MG TABLET PO (22:40)
[2021-09-22] VITALS (8 sets, daily range): BP systolic 125–177; BP diastolic 63–80; PULSE 53–76; RESP 16–20; TEMP 36.5–36.9; O2SAT 92–96
[2021-09-22] MEDS: Albuterol Sulfate 90 MCG 8 GM INHALER 2 PUFF INHALE ×2 (00:13→15:41)
[2021-09-22] MEDS: Heparin Sodium,Porcine 5,000 UNIT/ML VIAL 5000 UNIT SUBCUT ×3 (00:14→18:58)
[2021-09-22] MEDS: Acetaminophen 325 MG TABLET 650 MG PO (05:15)
[2021-09-22] MEDS: Fluticasone Propionate 250 MCG BLST.W.DEV 1 PUFF INHALE (09:06)
--- NOTE | 2021-09-22 09:22 | P.PNIM_ITS ---
Subjective Subjective Date of Service: 09/22/21 Interval History: f/u on fall, elevated CPK Itnerval history: no confusion, no sob, no fever, discharge contingent on snf bed Review of Systems no fever no confusion Physical Exam Vital Signs: Vital Signs: Last Vital Signs Temp 98.4 F 09/22/21 07:49 Pulse 53 09/22/21 09:06 Resp 20 09/22/21 09:06 BP 138/63 09/22/21 07:49 Pulse Ox 96 09/22/21 07:49 BMI result Body Mass Index 28.1 Const: Other: General: confused, baseline Resp: CTA bilateral CVS: S1,S2,RRR GI: +BS, NT, no distention Skin: No rash Neuro: motor grossly intact Psych: appropriate affect Objective Data Active Medications Acetaminophen (Acetaminophen 325 Mg Tablet) 650 mg PO Q6H PRN PRN Reason: Pain, Mild (Pain Scale 1-3) Last Admin: 09/22/21 05:15 Dose: 650 mg Documented by: ISSAC Albuterol Sulfate (Albuterol Sulfate (0.083%) 2.5 Mg/3 Ml Vial.Neb) 2.5 mg INHALE Q6H PRN PRN Reason: wheezing Albuterol Sulfate (Albuterol Sulfate 90 Mcg 8 Gm Inhaler) 2 puff INHALE Q4H PRN PRN Reason: Shortness Of Breath Or Wheezing Last Admin: 09/22/21 00:13 Dose: 2 puff Documented by: ISSAC Amlodipine Besylate (Amlodipine Besylate 5 Mg Tablet) 5 mg PO DAILY [facility]; Protocol Last Admin: 09/21/21 07:57 Dose: 5 mg Documented by: AMENA Aspirin (Aspirin Enteric Coated 81 Mg Tablet.Dr) 81 mg PO DAILY [facility] Last Admin: 09/21/21 07:57 Dose: 81 mg Documented by: AMENA Atorvastatin Calcium (Atorvastatin Calcium 20 Mg Tablet) 20 mg PO BEDTIME [facility] Last Admin: 09/21/21 22:40 Dose: 20 mg Documented by: ISSAC Fluticasone Propionate (Fluticasone Propionate 250 Mcg Blst.W.Dev) 1 puff INHALE RBID [facility] Last Admin: 09/22/21 09:06 Dose: 1 puff Documented by: MARCELLO Heparin Sodium (Porcine) (Heparin Sodium,Porcine 5,000 Unit/Ml Vial) 5,000 unit SUBCUT Q8H [facility] Last Admin: 09/22/21 00:14 Dose: 5,000 unit Documented by: ISSAC Hydrochlorothiazide (Hydrochlorothiazide 12.5 Mg Tablet) 12.5 mg PO DAILY [facility]; Protocol Last Admin: 09/21/21 07:57 Dose: 12.5 mg Documented by: AMENA Sodium Chloride (Ns) 1,000 mls @ 100 mls/hr IVCONT .Q10H [facility] Last Infusion: 09/22/21 07:33 Dose: 0 mls/hr Documented by: ELI Montelukast Sodium (Montelukast Sodium 10 Mg Tablet) 10 mg PO BEDTIME [facility] Last Admin: 09/21/21 22:40 Dose: 10 mg Documented by: ISSAC Ondansetron HCl (Ondansetron Hcl 4 Mg/2 Ml Vial) 4 mg IVPUSH Q8H PRN PRN Reason: Nausea and Vomiting Sodium Chloride (0.9 % Sodium Chloride Flush 3 Ml Syringe) 3 ml IVFLUSH QSHIFT [facility] Last Admin: 09/21/21 22:40 Dose: 3 ml Documented by: ISSAC Vitamin D (Cholecalciferol (Vitamin D3) 25 Mcg Tablet) 25 mcg PO DAILY [facility] Last Admin: 09/21/21 07:57 Dose: 25 mcg Documented by: AMENA Labs CBC & Chem 7: 09/18/21 06:46 09/20/21 07:59 Assessment and Plan (1) Non-cardiac chest pain: Status: Acute (2) Rhabdomyolysis: Status: Acute (3) COVID-19: Status: Acute Plan M with a PMH of asthma/copd, hld, htn, prostate Ca (all obtained from previous documentation) who was brought into the ED after a fall. He is found to have rhabdomyolsysi and incidentally is COVID positive. He will be admitted for further work up and treatment. 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 Elevated trop-I --likely from Rhabdo, no further testing 3. COVID+ no hypoxia (saturations high 90s on RA) -- no further treatment warranted 4. HTN--BP normal, 5. Acute confusion vs undiagnosed dementia will await family input--likely chronic dementia continue baseline meds as appropriate full code DVT pptx -- given Lovenox x 1 PT recommending STR when bed available Inapatient: Rhabdo needs IV, Covid, needs placement.. when actue issues resolves Quality Quality Stroke Does the patient have a stroke diagnosis?: No VTE Prior VTE?: No VTE Risk Level:: Medical - moderate - high VTE Device Contraindication: N/A - Device Ordered VTE Drug Contraindication: N/A - Med Ordered
[2021-09-22] MEDS: Albuterol Sulfate (0.083%) 2.5 MG/3 ML VIAL.NEB INHALE (09:52)
[2021-09-22] MEDS: Aspirin Enteric Coated 81 MG TABLET.DR PO (10:41)
[2021-09-22] MEDS: hydroCHLOROthiazide 12.5 MG TABLET PO (10:41)
[2021-09-22] MEDS: amLODIPine Besylate 5 MG TABLET PO (10:41)
[2021-09-22] MEDS: Cholecalciferol (Vitamin D3) 25 MCG TABLET PO (10:41)
[2021-09-22] MEDS: 0.9 % Sodium Chloride Flush 3 ML SYRINGE IVFLUSH ×2 (18:58→21:04)
[2021-09-22] MEDS: Atorvastatin Calcium 20 MG TABLET PO (21:03)
[2021-09-22] MEDS: Montelukast Sodium 10 MG TABLET PO (21:04)
[2021-09-23] VITALS (9 sets, daily range): BP systolic 131–163; BP diastolic 60–77; PULSE 60–97; RESP 18–20; TEMP 36.6–36.8; O2SAT 76–97
[2021-09-23] MEDS: Albuterol Sulfate 90 MCG 8 GM INHALER 2 PUFF INHALE ×2 (03:47→13:37)
[2021-09-23] MEDS: Fluticasone Propionate 250 MCG BLST.W.DEV 1 PUFF INHALE (08:03)
[2021-09-23] MEDS: Aspirin Enteric Coated 81 MG TABLET.DR PO (10:32)
[2021-09-23] MEDS: Heparin Sodium,Porcine 5,000 UNIT/ML VIAL 5000 UNIT SUBCUT ×3 (10:32→23:15)
[2021-09-23] MEDS: 0.9 % Sodium Chloride Flush 3 ML SYRINGE IVFLUSH ×3 (10:32→20:18)
[2021-09-23] MEDS: amLODIPine Besylate 5 MG TABLET PO (10:32)
[2021-09-23] MEDS: hydroCHLOROthiazide 12.5 MG TABLET PO (10:32)
[2021-09-23] MEDS: Cholecalciferol (Vitamin D3) 25 MCG TABLET PO (10:32)
[2021-09-23] MEDS: Acetaminophen 325 MG TABLET 650 MG PO (10:38)
--- NOTE | 2021-09-23 11:21 | HO.PM.IMPN ---
Subjective Subjective Date of Service: 09/23/21 Interval History: f/u on fall, elevated CPK Itnerval history: no confusion, no sob, no fever, wants to go home Review of Systems no fever no confusion Physical Exam Vital Signs: Vital Signs: Last Vital Signs Temp 97.8 F 09/23/21 07:54 Pulse 60 09/23/21 08:05 Resp 18 09/23/21 08:05 BP 131/60 09/23/21 07:54 Pulse Ox 95 09/23/21 07:54 BMI result Body Mass Index 28.1 Const: Other: General: confused, baseline Resp: CTA bilateral CVS: S1,S2,RRR GI: +BS, NT, no distention Skin: No rash Neuro: motor grossly intact Psych: appropriate affect Objective Data Active Medications Acetaminophen (Acetaminophen 325 Mg Tablet) 650 mg PO Q6H PRN PRN Reason: Pain, Mild (Pain Scale 1-3) Last Admin: 09/23/21 10:38 Dose: 650 mg Documented by: ELI Albuterol Sulfate (Albuterol Sulfate (0.083%) 2.5 Mg/3 Ml Vial.Neb) 2.5 mg INHALE Q6H PRN PRN Reason: wheezing Last Admin: 09/22/21 09:52 Dose: 2.5 mg Documented by: GABINO Albuterol Sulfate (Albuterol Sulfate 90 Mcg 8 Gm Inhaler) 2 puff INHALE Q4H PRN PRN Reason: Shortness Of Breath Or Wheezing Last Admin: 09/23/21 03:47 Dose: 2 puff Documented by: CECILIA Amlodipine Besylate (Amlodipine Besylate 5 Mg Tablet) 5 mg PO DAILY [facility]; Protocol Last Admin: 09/23/21 10:32 Dose: 5 mg Documented by: ELI Aspirin (Aspirin Enteric Coated 81 Mg Tablet.) 81 mg PO DAILY [facility] Last Admin: 09/23/21 10:32 Dose: 81 mg Documented by: ELI Atorvastatin Calcium (Atorvastatin Calcium 20 Mg Tablet) 20 mg PO BEDTIME [facility] Last Admin: 09/22/21 21:03 Dose: 20 mg Documented by: CECILIA Fluticasone Propionate (Fluticasone Propionate 250 Mcg Blst.W.Dev) 1 puff INHALE RBID [facility] Last Admin: 09/23/21 08:03 Dose: 1 puff Documented by: MARCELLO Heparin Sodium (Porcine) (Heparin Sodium,Porcine 5,000 Unit/Ml Vial) 5,000 unit SUBCUT Q8H [facility] Last Admin: 09/23/21 10:32 Dose: 5,000 unit Documented by: ELI Hydrochlorothiazide (Hydrochlorothiazide 12.5 Mg Tablet) 12.5 mg PO DAILY [facility]; Protocol Last Admin: 09/23/21 10:32 Dose: 12.5 mg Documented by: ELI Montelukast Sodium (Montelukast Sodium 10 Mg Tablet) 10 mg PO BEDTIME [facility] Last Admin: 09/22/21 21:04 Dose: 10 mg Documented by: CECILIA Ondansetron HCl (Ondansetron Hcl 4 Mg/2 Ml Vial) 4 mg IVPUSH Q8H PRN PRN Reason: Nausea and Vomiting Sodium Chloride (0.9 % Sodium Chloride Flush 3 Ml Syringe) 3 ml IVFLUSH QSHIFT [facility] Last Admin: 09/23/21 10:32 Dose: 3 ml Documented by: ELI Vitamin D (Cholecalciferol (Vitamin D3) 25 Mcg Tablet) 25 mcg PO DAILY [facility] Last Admin: 09/23/21 10:32 Dose: 25 mcg Documented by: ELI Labs CBC & Chem 7: 09/18/21 06:46 09/20/21 07:59 Assessment and Plan (1) Non-cardiac chest pain: Status: Acute (2) Rhabdomyolysis: Status: Acute (3) COVID-19: Status: Acute Plan M with a PMH of asthma/copd, hld, htn, prostate Ca (all obtained from previous documentation) who was brought into the ED after a fall. He is found to have rhabdomyolsysi and incidentally is COVID positive. He will be admitted for further work up and treatment. 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 Elevated trop-I --likely from Rhabdo, no further testing per cardiology 3. COVID+ no hypoxia (saturations high 90s on RA) -- no further treatment warranted 4. HTN--BP normal, 5. Acute confusion vs undiagnosed dementia will await family input--likely chronic dementia continue baseline meds as appropriate full code DVT pptx -- given Lovenox x 1 PT recommending STR when bed available, pt wants to go home, will have PT reassess for appropriateness to go home Inapatient: awaiting rehab bed with positive covid status Quality Stroke Does the patient have a stroke diagnosis?: No VTE Prior VTE?: No VTE Risk Level:: Medical - moderate - high VTE Device Contraindication: N/A - Device Ordered VTE Drug Contraindication: N/A - Med Ordered
--- NOTE | 2021-09-23 13:55 | MHC.CM.PN ---
Male 81 DX Covid+ elevated troponin Patient is day 8 since covid test+ He is vaccinated. PT is recommending STR. Multiple referrals have been sent out. [facility] was called, spoke with Dee. She suggested [facility]. 4 more referrals have been sent out. No bed offers have been made. PT re-eval still recommend STR. CM will follow for placement.
[2021-09-23] MEDS: Montelukast Sodium 10 MG TABLET PO (20:17)
[2021-09-23] MEDS: Atorvastatin Calcium 20 MG TABLET PO (20:17)
[2021-09-24] VITALS (7 sets, daily range): BP systolic 140–173; BP diastolic 55–81; PULSE 62–81; RESP 18–22; TEMP 36.2–36.9; O2SAT 94–98
[2021-09-24] MEDS: traZODone HCL 25 MG HALFTAB PO (00:42)
[2021-09-24] MEDS: Fluticasone Propionate 250 MCG BLST.W.DEV 1 PUFF INHALE ×2 (08:03→20:06)
[2021-09-24] MEDS: Heparin Sodium,Porcine 5,000 UNIT/ML VIAL 5000 UNIT SUBCUT ×3 (10:01→23:52)
[2021-09-24] MEDS: hydroCHLOROthiazide 12.5 MG TABLET PO (10:02)
[2021-09-24] MEDS: 0.9 % Sodium Chloride Flush 3 ML SYRINGE IVFLUSH ×3 (10:02→23:52)
[2021-09-24] MEDS: amLODIPine Besylate 5 MG TABLET PO (10:02)
[2021-09-24] MEDS: Aspirin Enteric Coated 81 MG TABLET.DR PO (10:02)
[2021-09-24] MEDS: Cholecalciferol (Vitamin D3) 25 MCG TABLET PO (10:02)
[2021-09-24] MEDS: Albuterol Sulfate 90 MCG 8 GM INHALER 2 PUFF INHALE (10:18)
--- NOTE | 2021-09-24 12:27 | P.PNIM_ITS ---
Subjective Subjective Date of Service: 09/24/21 Interval History: seen and examined this morning follow up for covid 19, elevated CPK no sob, cough, chest pain; feels well Review of Systems Review of Systems: Yes all other systems are reviewed and are negative Constitutional Constitutional: Denies chills and Denies fever(s) Cardiovascular Cardiovascular: Denies chest pain, Denies palpitations and Denies dyspnea Respiratory Respiratory: Denies cough and Denies dyspnea Gastrointestinal Gastrointestinal: Denies abdominal pain, Denies nausea and Denies vomiting Endocrine Endocrine: Denies palpitations Physical Exam Vital Signs: Vital Signs: Last Vital Signs Temp 97.4 F 09/24/21 11:12 Pulse 81 09/24/21 11:12 Resp 20 09/24/21 11:12 BP 173/81 H 09/24/21 11:12 Pulse Ox 95 09/24/21 11:12 BMI result Body Mass Index 28.1 Const: General: cooperative, comfortable, no acute distress, alert and awake Nutritional Appearance: average body habitus Resp: Effort & Inspection: normal respiratory effort and able to speak in complete sentences Auscultation: clear to auscultation bilaterally Cardio: Rate: regular rate Heart sounds: S1 normal heart sound present and S2 normal heart sound present GI: Inspection: No distended Palpation (GI): Soft to palpation and nontender Extrem: Other: moving all four extremities spontaneously General: Yes no pedal edema Objective Data Active Medications Acetaminophen (Acetaminophen 325 Mg Tablet) 650 mg PO Q6H PRN PRN Reason: Pain, Mild (Pain Scale 1-3) Last Admin: 09/23/21 10:38 Dose: 650 mg Documented by: ELI Albuterol Sulfate (Albuterol Sulfate (0.083%) 2.5 Mg/3 Ml Vial.Neb) 2.5 mg INHALE Q6H PRN PRN Reason: wheezing Last Admin: 09/22/21 09:52 Dose: 2.5 mg Documented by: GABINO Albuterol Sulfate (Albuterol Sulfate 90 Mcg 8 Gm Inhaler) 2 puff INHALE Q4H PRN PRN Reason: Shortness Of Breath Or Wheezing Last Admin: 09/24/21 10:18 Dose: 2 puff Documented by: DIANE Amlodipine Besylate (Amlodipine Besylate 5 Mg Tablet) 5 mg PO DAILY ABDIFATAH; Protocol Last Admin: 09/24/21 10:02 Dose: 5 mg Documented by: DIANE Aspirin (Aspirin Enteric Coated 81 Mg Tablet.Dr) 81 mg PO DAILY [facility] Last Admin: 09/24/21 10:02 Dose: 81 mg Documented by: DIANE Atorvastatin Calcium (Atorvastatin Calcium 20 Mg Tablet) 20 mg PO BEDTIME [facility] Last Admin: 09/23/21 20:17 Dose: 20 mg Documented by: SAMEER Fluticasone Propionate (Fluticasone Propionate 250 Mcg Blst.W.Dev) 1 puff INHALE RBID [facility] Last Admin: 09/24/21 08:03 Dose: 1 puff Documented by: ADELA Heparin Sodium (Porcine) (Heparin Sodium,Porcine 5,000 Unit/Ml Vial) 5,000 unit SUBCUT Q8H [facility] Last Admin: 09/24/21 10:01 Dose: 5,000 unit Documented by: DIANE Hydrochlorothiazide (Hydrochlorothiazide 12.5 Mg Tablet) 12.5 mg PO DAILY [facility]; Protocol Last Admin: 09/24/21 10:02 Dose: 12.5 mg Documented by: DIANE Montelukast Sodium (Montelukast Sodium 10 Mg Tablet) 10 mg PO BEDTIME [facility] Last Admin: 09/23/21 20:17 Dose: 10 mg Documented by: SAMEER Ondansetron HCl (Ondansetron Hcl 4 Mg/2 Ml Vial) 4 mg IVPUSH Q8H PRN PRN Reason: Nausea and Vomiting Sodium Chloride (0.9 % Sodium Chloride Flush 3 Ml Syringe) 3 ml IVFLUSH QSHIFT [facility] Last Admin: 09/24/21 10:02 Dose: 3 ml Documented by: DIANE Vitamin D (Cholecalciferol (Vitamin D3) 25 Mcg Tablet) 25 mcg PO DAILY [facility] Last Admin: 09/24/21 10:02 Dose: 25 mcg Documented by: DIANE Labs CBC & Chem 7: 09/18/21 06:46 09/20/21 07:59 Assessment and Plan (1) Rhabdomyolysis: Status: Acute (2) COVID-19: Status: Acute Plan M with a PMH of asthma/copd, hld, htn, prostate Ca (all obtained from previous documentation) who was brought into the ED after a fall. He is found to have rhabdo and incidentally is COVID positive. He will be admitted for further work up and treatment. 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 qureshi PT recommending STR when bed available, pt wants to go home, will have PT reassess for appropriateness to go home Inpatient: medically stable, awaiting rehab bed with positive covid status Quality Stroke Does the patient have a stroke diagnosis?: No VTE Prior VTE?: No VTE Risk Level:: Medical - moderate - high VTE Device Contraindication: N/A - Device Ordered VTE Drug Contraindication: N/A - Med Ordered
--- NOTE | 2021-09-24 17:15 | PC.NURSE ---
MESSAGE LEFT FOR FAMILY TO CALL BACK ,CALLED [phone] NOBODY ANSWER THE PHONE
[2021-09-24] MEDS: Acetaminophen 325 MG TABLET 650 MG PO (19:39)
[2021-09-24] MEDS: Montelukast Sodium 10 MG TABLET PO (19:40)
[2021-09-24] MEDS: Atorvastatin Calcium 20 MG TABLET PO ×2 (19:40)
[2021-09-25 03:28] VITALS: BP 132/64; PULSE 61; RESP 18; TEMP 36.8; O2SAT 95
[2021-09-25 07:30] VITALS: BP 155/74; PULSE 67; RESP 18; TEMP 36.3; O2SAT 95
[2021-09-25 09:04] VITALS: PULSE 68; RESP 20; O2SAT 95
[2021-09-25] MEDS: Fluticasone Propionate 250 MCG BLST.W.DEV 1 PUFF INHALE (09:04)
[2021-09-25] MEDS: Heparin Sodium,Porcine 5,000 UNIT/ML VIAL 5000 UNIT SUBCUT (11:07)
[2021-09-25] MEDS: Cholecalciferol (Vitamin D3) 25 MCG TABLET PO (11:08)
[2021-09-25] MEDS: hydroCHLOROthiazide 12.5 MG TABLET PO (11:08)
[2021-09-25] MEDS: 0.9 % Sodium Chloride Flush 3 ML SYRINGE IVFLUSH (11:08)
[2021-09-25] MEDS: Aspirin Enteric Coated 81 MG TABLET.DR PO (11:08)
[2021-09-25] MEDS: amLODIPine Besylate 5 MG TABLET PO (11:08)
[2021-09-25 11:28] VITALS: BP 154/72; PULSE 73; RESP 18; TEMP 37.2; O2SAT 96
[2021-09-25 11:44] VITALS: BP 154/72; PULSE 73; O2SAT 96
--- NOTE | 2021-09-25 11:53 | P.DS_ITS ---
DS: Providers Provider Date of Service: 09/25/21 Date of admission: 09/17/21 09:19 Date of discharge: 09/25/21 Primary care physician: Rayne gO MD Consults: 09/17/21 09:20 Consult to Cardiology Routine Consulting Provider: Patrick Jean-Baptiste Reason for consultation: NSTEMI Attending physician on discharge: Live Chris Discharging clinician: Twila Durand DS: Diagnosis Discharge Diagnosis (1) Rhabdomyolysis: Status: Acute (2) COVID-19: Status: Acute DS: Summary Hospital Course Hospital Course: From H&P on day of admission This is an 81 yo, Latvian speaking male, who is seen with automotive parts interpreter services present. He has a PMH as outlined below (obtained from the chart as the patient is a vague historian). Despite, the use of a Latvian speaking automotive parts interpreter, history is difficult to obtain. Apparently, the patient fell at some point on the night preceeding admission and was unable to get up. Per ED notes, he was on the floor for 2 hours prior to family arriving. The patient reports no prodromal feelings. He denies loss of consciousness. He reports L chest pain, which he reports was present prior to the fall, but then states he hurt himself trying to get off the floor. He states the pain is non- radiating, 3/10 in severity. He is unable to describe its nature. He reports no changes to his breathing status. He denies any cough, fevers or chills. He reports he has been vaccinated for COVID 19 including booster. In the ED, he was found to be COVID positive. He has an elevated HS trop-I x 2; He was given aspirin and updrafts and admission was requested. This morning, a repeat trop is downtrending. CPK checked this morning is elevated >10k. He reports his pain is minimal right now and is requested a diet. Discharge diagnosed COVID-19 Rhabdomyolysis Elevated troponin Patient was admitted to the hospital after a fall with rhabdomyolysis. He was started on IV fluid and his CPK trended down from over 10,000 to around 2000. His cardiac enzymes were elevated however he had no chest pain. He was seen by Cardiology who felt that the elevation in the cardiac enzymes were secondary to rhabdomyolysis and no further workup was required. For COVID-19 patient was asymptomatic and never had any episodes of hypoxia. CTA on the day of discharge showed no evidence of PE. No treatment was indicated. He initially tested positive on 09/16 and has completed isolation. No changes were made to his home medications Patient was evaluated by Physical therapy who initially recommended short-term rehab and initially case management had a bed search for SNF. As the patient improved he was re-evaluated on the day of discharge and had made significant improvement and was recommended to return home with home physical therapy. Time Spent with Patient Time attestation: Total time spent providing and/or coordinating discharge services: Discharge coordination time: Greater than 30 minutes Quality: Safe Use of Opioids Does Pt have an Active Cancer Diagnosis on the Problem List?: No Quality: Stroke Does the patient have a stroke diagnosis?: No Physical Exam Vital Signs: Vital Signs: Last Vital Signs Temp 98.9 F 09/25/21 11:28 Pulse 73 09/25/21 11:44 Resp 18 09/25/21 11:28 BP 154/72 H 09/25/21 11:44 Pulse Ox 96 09/25/21 11:44 BMI result Body Mass Index 28.1 Const: General: cooperative, comfortable, alert and awake Nutritional Appearance: average body habitus Resp: Effort & Inspection: normal respiratory effort and able to speak in complete sentences Cardio: Rate: regular rate GI: Palpation (GI): Soft to palpation Extrem: General: Yes no pedal edema Discharge Plan Discharge Patient Disposition: Home Health Service Discharge Diagnosis: rhabdomyolysis elevated troponin COVID 19 Referrals: [facility] for PT [Other] - 1 Week [facility] [Outside] - 1 Week Rayne Brizuela MD [Primary Care Provider] - 1 Week Discharge Medications: Continued atorvastatin 20 mg tablet 20 mg PO BEDTIME 0RF albuterol sulfate 2.5 mg /3 mL (0.083 %) solution for nebulization 1 amp inhalation Q6H PRN (Reason: wheezing) 0RF lidocaine 4 % adhesive patch,medicated 1 patch topical Q24H PRN (Reason: pain) Qty: 15 0RF Rx Instructions: may leave on for up to 12 hrs amlodipine 5 mg tablet 5 mg PO DAILY 0RF Flovent HFA 220 mcg/actuation HFA aerosol inhaler 1 puff PO BID 0RF cholecalciferol (vitamin D3) 25 mcg (1,000 unit) tablet 25 mcg PO DAILY 0RF aspirin 81 mg tablet,delayed release (DR/EC) 81 mg PO DAILY 0RF montelukast 10 mg tablet 10 mg PO BEDTIME 0RF hydrochlorothiazide 12.5 mg tablet 12.5 mg PO DAILY 0RF albuterol sulfate 90 mcg/actuation HFA aerosol inhaler 2 puff PO Q4-6H PRN (Reason: Shortness Of Breath Or Wheezing) 0RF Changed acetaminophen 650 mg tablet extended release 1,300 mg PO Q12H PRN (Reason: Pain) Qty: 0 0RF Discharge Orders: Discharge Order (Routine); Ordered 09/25/21 Ordered By: Twila Durand Diet: advance to usual diet Activity on Discharge: As tolerated Stand Alone Forms: Patient Portal Discharge page Care Plan Goals: see below Health Concerns: COVID-19 Rhabdomyolysis Elevated troponin Plan of Treatment: Call to schedule follow up appointment with your PCP You will be discharged home with PT services Assessment: see discharge summary
--- NOTE | 2021-09-25 11:59 | W.MHC.F2F ---
Service Date Service Date: 09/25/21 Encounter Date of encounter: 09/25/21 Reasons for Services Signs and symptoms assessed: PT for unsteady gait, fall risk Reason for physical therapy: home safety and mobility and gait/transfer training Overseeing Care: Rayne Og Homebound: Leaving the home is medically contraindicated at this time without the asist of a device and/or another person due th the listed conditions above and below. Reason homebound: unsteady gait / fall risk and weakness related to hospital stay Certification: Based on the above findings, I certify that this patient is confined to the home and needs intermittent fci care, physical therapy and/or speech therapy, or continues to need occupational therapy. The patient is under my care, and I have initiated the establishment of the plan of care. The patient will be followed by a physician who will periodically review the plan of care.
--- NOTE | 2021-09-25 13:47 | MHC.CM.PN ---
Patient has been medically cleared for dc to home todaY WITH SERVICES. per [facility] LIAISON/Dwain @ [phone], Patient is active with [facility] and [facility] will be providing home PT. IMM addressed with Patient; he is aWARE of and pleased to be going home today.
--- NOTE | 2021-09-25 15:51 | MHC.CM.PN ---
Patient's Daughter/Rayne # is [phone].
== END 2021-09-25 16:45 | disposition home health service (06) | DRG 557 ==
LOC: HO.ED 09-17 00:58 → HO.EDOVER 09-17 09:25 → HO.IMC 09-21 10:42
PROVIDERS: Internal Medicine; Physician Assistant; Admitting Provider Family Medicine; Emergency Provider Emergency Medicine; PCP Internal Medicine; Visit Provider Physician Assistant Medical
DX: M62.82 Rhabdomyolysis (principal); U07.1 COVID-19; J44.9 Chronic obstructive pulmonary disease, unspecified; E78.5 Hyperlipidemia, unspecified; I10 Essential (primary) hypertension; Z85.46 Personal history of malignant neoplasm of prostate; Z79.82 Long term (current) use of aspirin; Z79.899 Other long term (current) drug therapy
CPT/HCPCS: 36415; 71046; 71275; 72070; 80048; 80053; 81001; 82550; 83735; 83880; 84484; 85025; 85027; 87635; 93005; 94640; 94664; 97116; 97162; 99285; J1650; Q9967

== ENCOUNTER 2021-10-17 19:52 | Inpatient (IN) | payer OTHER, SELFPAY ==
--- NOTE | ~2021-10-17 | CT_ITS ---
EXAMINATION: CT ABDOMEN AND PELVIS WITHOUT CONTRAST CLINICAL INFORMATION: Abdominal distention. COMPARISON: CT abdomen pelvis 07/08/2020. CT abdomen pelvis 06/24/2017 TECHNIQUE: Multidetector volumetric imaging was performed from the superior aspect of the liver through the pubic symphysis. Sagittal and coronal reformatted images were obtained on the technologist's workstation. This CT examination was performed using dose optimization techniques as appropriate, variously including the following: *Automated exposure control *Adjustment of mA and/or kV according to patient size (this includes techniques or standardized protocols for targeted exams where dose is matched to indication/reason for exam; i.e. extremities or head) *Use of iterative reconstruction technique DLP: 706 mGy-cm FINDINGS: LUNG BASES: A 5 mm right lung base nodule is noted. This nodule demonstrated definitive calcific density on the exam of 06/24/2017 and currently is slightly less conspicuous than on the 06/24/2017 examination. This finding is benign in appearance given the long-term stability and possible regression of this finding. Partial visualization of coronary artery calcific atherosclerosis. LIVER, GALLBLADDER, AND BILIARY TREE: The liver is normal in size, shape, and attenuation. No focal hepatic lesion or biliary ductal dilatation is present. Dependent layering calcified gallstones are present within the gallbladder lumen. PANCREAS: Moderate diffuse fatty atrophy of the pancreas. SPLEEN: Scattered punctate benign-appearing calcifications likely representing granulomas. ADRENAL GLANDS: Unremarkable. KIDNEYS AND URETERS: The kidneys are normal in size, shape, and attenuation. No hydronephrosis, hydroureter, or calculi seen. No perinephric stranding. BLADDER: Unremarkable. GASTROINTESTINAL TRACT: Mild diverticulosis of the descending colon without evidence of adjacent inflammatory changes to suggest acute diverticulitis. A cecal bascule is noted. The appendix is normal in appearance. No free intraperitoneal fluid or gas collections. Normal stomach. ABDOMINAL WALL: One CM diameter periumbilical hernia containing fat. LYMPH NODES: Normal. VASCULAR: Mild scattered calcific atherosclerosis. PELVIC VISCERA: Normal size prostate. OSSEOUS STRUCTURES: L4 central vertebral body compression deformity with 50% loss of craniocaudal height unchanged compared with 07/08/2020. Multilevel intervertebral disc space narrowing and vacuum phenomenon of the lumbar spine. CT/CT abdomen pelvis wo con IMPRESSION: Unenhanced CT of the abdomen and pelvis: *No acute abnormalities identified. *Mild diverticulosis of the descending colon. No evidence of acute diverticulitis. *Chronic L4 vertebral body compression deformity unchanged compared with 07/08/2020. *Cholelithiasis. *Diffuse fatty atrophy of the pancreas.
--- NOTE | ~2021-10-17 | XR_ITS ---
EXAMINATION: XR CHEST CLINICAL INFORMATION: Shortness of breath COMPARISON: CT angiography 09/17/2021. Chest radiograph 09/16/2021 TECHNIQUE: Frontal view of the chest was obtained. FINDINGS: Normal appearance of the cardiomediastinal structures. Minimal aortic calcific atherosclerosis. No effusions or pneumothoraces. 5 mm right lower lobe nodule corresponding to a densely calcified benign-appearing granuloma in the 09/17/2021 examination. No focal pulmonary consolidation. Normal pattern of very vasculature. XR/XR chest 1V IMPRESSION: *No acute cardiopulmonary abnormalities. *5 mm right lower lobe benign calcified pulmonary granuloma.
[2021-10-17 19:59] VITALS: BP 185/75; PULSE 86; O2SAT 99
[2021-10-17 20:21] VITALS: BP 165/54; PULSE 73; RESP 18; TEMP 36.6; O2SAT 100; BMI 29.1
--- NOTE | 2021-10-17 20:25 | ECG_ITS ---
Test Reason : ANDOMINAL PAIN Blood Pressure : / mmHG Vent. Rate : 069 BPM Atrial Rate : 069 BPM P-R Int : 152 ms QRS Dur : 090 ms QT Int : 386 ms P-R-T Axes : 064 054 078 degrees QTc Int : 413 ms Sinus rhythm with marked sinus arrhythmia Nonspecific ST and T wave abnormality Abnormal ECG When compared with ECG of 21-SEP-2021 22:12, Premature atrial complexes are no longer Present Nonspecific T wave abnormality, improved in Lateral leads Referred By: Generic ED Physician Electronically Signed By:ALLIE BENITEZ MD
[2021-10-17 20:39] LABS: MANUAL DIFF FLAG NO
[2021-10-17 20:54] LABS: Basophils Absolute Auto 0.1 X10*3/uL (0.0-0.2); Basophils Percent Auto 0.5 % (0-2); Eosinophils Absolute Auto 0.5 X10*3/uL (0.0-0.4); Eosinophils Percent Auto 5.6 % (0-4); Hematocrit 37.5 % (42.0-52.0); Hemoglobin 13.3 g/dl (14.0-18.0); Imm Gran Abs Auto 0.02 X10*3/uL (0.00-0.03); Imm Gran Pct Auto 0.2 % (0.0-0.4); Lymphocytes Absolute Auto 2.4 X10*3/uL (1.2-4.9); Lymphocytes Percent Auto 24.6 % (20-40); Mean Corpuscular HGB Conc 35.5 g/dl (31.0-36.0); Mean Corpuscular Hemoglobin 30.7 pg (27.0-33.0); Mean Corpuscular Volume 86.6 fL (80.0-98.0); Mean Platelet Volume 9.8 fL (9.4-12.4); Monocytes Absolute Auto 0.9 X10*3/uL (0.1-1.2); Monocytes Percent Auto 9.7 % (2-11); Neutrophils Absolute Auto 5.8 x10*3/uL (2.0-8.3); Neutrophils Percent Auto 59.4 % (45-73); Platelet Count 258 X10*3/uL (160-400); Red Blood Count 4.33 X10*6/uL (4.60-5.80); Red Cell Distribution Width 13.1 % (11.0-16.0); White Blood Count 9.7 X10*3/uL (4.8-10.8)
[2021-10-17 20:57] LABS: Alanine Aminotransferase 24 U/L (0-40); Albumin Level 3.9 g/dL (3.5-5.0); Alkaline Phosphatase 106 U/L (39-117); Anion Gap 13 (12-20); Aspartate Amino Transferase 26 U/L (5-37); Bilirubin Total 0.8 mg/dL (0.0-1.0); Blood Urea Nitrogen 12 mg/dL (9-16); Calcium 8.7 mg/dL (8.4-10.2); Carbon Dioxide 24 mmol/L (22-29); Chloride 96 mmol/L (96-108); Creatinine Clr Calc Pharmacy 61.9; Estimated Glomerular Filt Rate > 60; Glucose Random 110 mg/dL (60-115); Potassium 3.9 mmol/L (3.3-5.1); Sodium 129 mmol/L (135-145); Total Protein 7.1 g/dL (6.5-8.0)
[2021-10-17 21:04] LABS: B Type Natriuretic Peptide 71 pg/mL (<100); Troponin-I High Sensitivity 10.1 ng/L (<3.5-35.0)
[2021-10-17 22:22] VITALS: BP 142/61; PULSE 67; RESP 18; TEMP 36.4; O2SAT 98
[2021-10-18] VITALS (12 sets, daily range): BP systolic 121–189; BP diastolic 44–86; PULSE 52–97; RESP 14–24; TEMP 36.1–36.8; O2SAT 94–99
--- NOTE | 2021-10-18 00:16 | ED.GENADULT ---
HPI - General Adult General Chief complaint: General Medical Stated complaint: ABD PAIN/ SWOLLEN FEET Time Seen by Provider: 10/18/21 00:14 Source: patient, EMS and court interpreter Mode of arrival: EMS Limitations: no limitations History of Present Illness HPI narrative: 81-year-old male came in for evaluation of lower extremities edema, abdominal pain, difficulty breathing. Using park interpreter service patient is complaining of feeling abdominal distension, shortness of breath with exertion and lying supine , bilateral lower extremities edema for the past 2 days, patient also feeling nauseous and vomited x1 since yesterday, no fever, no chills, no chest pain. Patient decline history of liver disease or alcohol abuse. Related Data Home Medications Medication Instructions Recorded Confirmed albuterol sulfate 90 mcg/actuation 2 puff PO Q4-6H PRN Shortness Of 05/29/20 09/17/21 aerosol inhaler Breath Or Wheezing aspirin 81 mg tablet,delayed 81 mg PO DAILY 05/29/20 09/17/21 release cholecalciferol (vitamin D3) 25 25 mcg PO DAILY 05/29/20 09/17/21 mcg (1,000 unit) tablet hydrochlorothiazide 12.5 mg tablet 12.5 mg PO DAILY 05/29/20 09/17/21 montelukast 10 mg tablet 10 mg PO BEDTIME 05/29/20 09/17/21 albuterol sulfate 1 amp inhalation Q6H PRN wheezing 07/08/20 09/17/21 atorvastatin 20 mg tablet 20 mg PO BEDTIME 07/08/20 09/17/21 amlodipine 5 mg tablet 5 mg PO DAILY 09/17/21 09/17/21 fluticasone propionate 220 1 puff PO BID 09/17/21 09/17/21 mcg/actuation HFA aerosol inhaler (Flovent HFA) Previous Rx's Medication Instructions Recorded lidocaine 4 % topical patch 1 patch topical Q24H PRN pain #15 07/08/20 ea acetaminophen 650 mg 1,300 mg PO Q12H PRN Pain #0 tabs 09/25/21 tablet,extended release Allergies Allergy/AdvReac Type Severity Reaction Status Date / Time No Known Allergies Allergy Unknown UNKNOWN Verified 09/16/21 20:25 [NO KNOWN ALLERGIES] Review of Systems Review of Systems: All other systems are reviewed and are negative Constitutional: Reports as per HPI and Reports no additional constitutional complaints Eyes: Reports as per HPI and Reports no additional eye complaints Reports system reviewed and no additional complaints, except as documented Cardiovascular: Reports as per HPI and Reports no additional cardiovascular complaints Respiratory: Reports as per HPI and Reports no additional respiratory complaints Gastrointestinal: Reports as per HPI and Reports no additional gastrointestinal complaints Genitourinary: Reports no additional female genitourinary complaints Musculoskeletal: Reports no additional musculoskeletal complaints Skin/Breast: Reports system reviewed and no additional complaints, except as docu Psychiatric: Reports no additional psychiatric complaints Endocrine: Reports no additional endocrine complaints Hematologic/Lymphatic: Reports no additional hematologic/lymphatic complaints Allergic/Immunologic: Reports no additional allergic/immunologic complaints Reports system reviewed and no additional complaints, except as documented and Reports Abnormal speech present [facility] Past Medical History Medical History Asthma COPD (chronic obstructive pulmonary disease) High cholesterol Prostate CA Social History Social History Household Members: None [facility] Do you presently have visiting nurse or other home services: Yes Alcohol intake: unknown Patient Tobacco Use Status: Never used Tobacco Second Hand Smoke Exposure: No Advance Directives: No service: No Current occupational status: retired and disabled Current occupation: right handed Physical Exam ED Vital Signs: Vital Signs - 24 hr 10/17/21 20:21 10/17/21 22:22 10/18/21 00:09 Temperature 97.8 F 97.6 F 97.8 F Pulse Rate 73 67 72 Respiratory Rate 18 18 16 Blood Pressure 165/54 H 142/61 H 152/63 H Pulse Oximetry 100 98 99 Oxygen Delivery Method Room Air Room Air Room Air BMI result Body Mass Index 29.1 Vital signs have been reviewed as appeared to be correct. Blood pressure normal. Heart rate normal. Respiration rate normal. Temperature normal. Oxygen saturation normal. Appearance: Alert. Oriented X3. No acute distress. Head: Normal external exam. Normocephalic. Atraumatic. No Barnes signs noted. No raccoon eyes noted Eyes: PERRLA. EOMI. Conjunctiva and sclera normal. Eyelids normal. ENT: TM's Normal. Pharynx normal. Uvula midline. Moist mucous membranes. No trismus noted. No drooling noted. No muffled voice noted. Neck: Normal inspection. Neck supple. FROM. No adenopathy. Thyroid Normal. No meningeal signs. No neck mass noted. CVS: Normal heart rate and rhythm. Heart sound normal. No murmurs noted. Pulses normal throughout. Respiratory: No respiratory distress. Painless inspiration. Breath sounds normal. Bilateral mild expiratory wheezing with prolonged expiration.. Chest nontender. No accessory muscle usage noted or decreased air movement noted. Abdomen: Soft, mild diffuse tenderness, mild distention, no rebound tenderness, no guarding.. Bowel sounds normal in all 4 quadrants. No distention noted. No organomegaly noted. No visible injury noted. Back: No CVA tenderness. Full range of motion noted. Skin: Skin warm and dry. Normal skin color. Normal skin turgor. No rashes/lesions/lacerations noted. Extremities: +2 lower extremity edema. Extremities exhibit normal range of motion. Extremities nontender. Neuro: Oriented X 3. Cranial nerve exam: II-XII are grossly intact No motor deficit. No sensory deficit. Reflexes normal. Course Course Course Narrative: 81-year-old male presented with fluid retention and shortness of breath patient physical exam is a mix of COPD and diffuse anasarca. Patient feels slightly improved with bronchodilator and diuresis with Lasix. Awaiting for CT abdomen and pelvis. Admit for further diuresis and bronchodilator Medical Decision Making Lab Data Lab results reviewed: Yes I reviewed the patient's lab results. Result diagrams: 10/17/21 20:35 10/17/21 20:35 Labs: Lab Results 10/17/21 10/17/21 10/17/21 Range/Units 20:35 20:35 20:35 WBC 9.7 (4.8-10.8) X10*3/uL RBC 4.33 L (4.60-5.80) X10*6/uL Hgb 13.3 L (14.0-18.0) g/dl Hct 37.5 L (42.0-52.0) % MCV 86.6 (80.0-98.0) fL MCH 30.7 (27.0-33.0) pg MCHC 35.5 (31.0-36.0) g/dl RDW 13.1 (11.0-16.0) % Plt Count 258 D (160-400) X10*3/uL MPV 9.8 (9.4-12.4) fL Immature Gran % (Auto) 0.2 (0.0-0.4) % Neut % (Auto) 59.4 (45-73) % Lymph % (Auto) 24.6 (20-40) % [place] % (Auto) 9.7 (2-11) % Eos % (Auto) 5.6 H (0-4) % Baso % (Auto) 0.5 (0-2) % Lymph # (Auto) 2.4 (1.2-4.9) X10*3/uL [place] # (Auto) 0.9 (0.1-1.2) X10*3/uL Eos # (Auto) 0.5 H (0.0-0.4) X10*3/uL Baso # (Auto) 0.1 (0.0-0.2) X10*3/uL Abs Immat Gran (auto) 0.02 (0.00-0.03) X10*3/uL Absolute Neuts (auto) 5.8 (2.0-8.3) x10*3/uL Absolute Nucleated RBC 0.000 (0.0-0.012) X10*3/uL Nucleated RBC % (auto) 0.0 (0.0-0.2) /100WBC Sodium 129 L (135-145) mmol/L Potassium 3.9 (3.3-5.1) mmol/L Chloride 96 (96-108) mmol/L Carbon Dioxide 24 (22-29) mmol/L Anion Gap 13 (12-20) BUN 12 (9-16) mg/dL Creatinine 0.97 (0.5-1.4) mg/dL Estim Creat Clear Calc 61.9 Estimated GFR > 60 Random Glucose 110 (60-115) mg/dL Calcium 8.7 (8.4-10.2) mg/dL Total Bilirubin 0.8 (0.0-1.0) mg/dL AST 26 D (5-37) U/L ALT 24 (0-40) U/L Alkaline Phosphatase 106 (39-117) U/L Troponin I High Sens 10.1 D (<3.5-35.0) ng/L B-Natriuretic Peptide 71 (<100) pg/mL Total Protein 7.1 (6.5-8.0) g/dL Albumin 3.9 (3.5-5.0) g/dL Imaging Data Chest x-ray: Attestation: I personally reviewed and interpreted this imaging study as follows: Radiologist's impression: No acute cardiopulmonary abnormalities. *5 mm right lower lobe benign calcified pulmonary granuloma. ? Discharge Plan Discharge Clinical Impression: Acute exacerbation of chronic obstructive pulmonary disease, Anasarca Patient Disposition: Admitted As Inpatient Prescriptions: No Action atorvastatin 20 mg tablet 20 mg PO BEDTIME albuterol sulfate 2.5 mg /3 mL (0.083 %) solution for nebulization 1 amp inhalation Q6H PRN (Reason: wheezing) lidocaine 4 % adhesive patch,medicated 1 patch topical Q24H PRN (Reason: pain) Qty: 15 0RF Rx Instructions: may leave on for up to 12 hrs amlodipine 5 mg tablet 5 mg PO DAILY Flovent HFA 220 mcg/actuation HFA aerosol inhaler 1 puff PO BID acetaminophen 650 mg tablet extended release 1,300 mg PO Q12H PRN (Reason: Pain) Qty: 0 0RF cholecalciferol (vitamin D3) 25 mcg (1,000 unit) tablet 25 mcg PO DAILY aspirin 81 mg tablet,delayed release (DR/EC) 81 mg PO DAILY montelukast 10 mg tablet 10 mg PO BEDTIME hydrochlorothiazide 12.5 mg tablet 12.5 mg PO DAILY albuterol sulfate 90 mcg/actuation HFA aerosol inhaler 2 puff PO Q4-6H PRN (Reason: Shortness Of Breath Or Wheezing)
[2021-10-18] MEDS: Furosemide 20 MG/2 ML VIAL 40 MG IVPUSH (00:59)
[2021-10-18] MEDS: Albuterol/Iprat 2.5/0.5MG 3 ML AMPUL.NEB INHALE ×4 (01:20→20:45)
[2021-10-18 02:38] LABS: COVID-19 Test Negative (Negative)
[2021-10-18] MEDS: Enoxaparin Sodium 40 MG/0.4 ML SYRINGE SUBCUT (05:17)
[2021-10-18] MEDS: methylPREDNISolone Sod Succ 40 MG/ML VIAL IVPUSH ×2 (05:17→16:34)
[2021-10-18 06:31] LABS: MANUAL DIFF FLAG NO
[2021-10-18 06:35] LABS: Basophils Absolute Auto 0.1 X10*3/uL (0.0-0.2); Basophils Percent Auto 0.5 % (0-2); Eosinophils Absolute Auto 0.4 X10*3/uL (0.0-0.4); Eosinophils Percent Auto 4.1 % (0-4); Hematocrit 38.3 % (42.0-52.0); Hemoglobin 13.5 g/dl (14.0-18.0); Imm Gran Abs Auto 0.04 X10*3/uL (0.00-0.03); Imm Gran Pct Auto 0.4 % (0.0-0.4); Lymphocytes Absolute Auto 2.2 X10*3/uL (1.2-4.9); Lymphocytes Percent Auto 21.8 % (20-40); Mean Corpuscular HGB Conc 35.2 g/dl (31.0-36.0); Mean Corpuscular Hemoglobin 30.5 pg (27.0-33.0); Mean Corpuscular Volume 86.7 fL (80.0-98.0); Mean Platelet Volume 9.7 fL (9.4-12.4); Monocytes Absolute Auto 0.6 X10*3/uL (0.1-1.2); Monocytes Percent Auto 5.9 % (2-11); Neutrophils Absolute Auto 6.8 x10*3/uL (2.0-8.3); Neutrophils Percent Auto 67.3 % (45-73); Platelet Count 244 X10*3/uL (160-400); Red Blood Count 4.42 X10*6/uL (4.60-5.80); White Blood Count 10.2 X10*3/uL (4.8-10.8)
[2021-10-18 06:49] LABS: Anion Gap 12 (12-20); Blood Urea Nitrogen 11 mg/dL (9-16); Calcium 8.8 mg/dL (8.4-10.2); Carbon Dioxide 28 mmol/L (22-29); Chloride 97 mmol/L (96-108); Creatinine Clr Calc Pharmacy 65.3; Estimated Glomerular Filt Rate > 60; Glucose Random 117 mg/dL (60-115); Potassium 3.8 mmol/L (3.3-5.1); Sodium 133 mmol/L (135-145)
--- NOTE | 2021-10-18 08:05 | PHA.MEDREC ---
Pharmacy Consult ? Medication Reconciliation Pharmacy has completed the medication reconciliation. Reviewed med rec done by Zach Wolff
[2021-10-18] MEDS: 0.9 % Sodium Chloride Flush 3 ML SYRINGE IVFLUSH (08:11)
--- NOTE | 2021-10-18 08:12 | PC.NURSE ---
validation architect used . patient A/O X3 . pupils reactive . lungs diminished . skin pink warm and dry . bowel sounds in all four quadrants . abdomen soft and non distended . patient reports rebound tenderness on palpitation . MD at bedside . plan to discharge . patient aware of plan of care .
--- NOTE | 2021-10-18 08:16 | PM.IMHP ---
History of Present Illness Date of Service: 10/18/21 Chief Complaint: SOB Patient is Swazi-speaking, history is obtained with the help of an deputy head 81-year-old male with past medical history of asthma/COPD, history of prostate cancer, HTN, hyperlipidemia presents to the hospital with complaints of shortness of breath as well as a cough increased sputum production. Symptoms started 2 days ago. Patient reports that he was diagnosed with COVID-19 about 2 weeks ago. Patient denies any chest pain, no abdominal pain nausea or vomiting, no diarrhea constipation, no urinary symptoms. No lower extremity edema. No orthopnea or PND. On arrival to the ED vitals show hypertension with no other significant abnormality Labs are significant for WBC count 9.7, hemoglobin of 13.3, medical 37.5 sodium of 129, COVID-19 serology negative today Chest x-ray shows no acute cardiopulmonary abnormality Abdominal pelvic CT shows acute abnormalities, mild diverticulosis with no diverticulitis. Review of Systems Review of Systems: Yes all other systems are reviewed and are negative [facility] Medical History (Updated 10/18/21 @ 08:28 by Anshu Mcmullen MD) Allergic rhinitis Asthma Bilateral primary osteoarthritis of knee COPD (chronic obstructive pulmonary disease) COVID-19 High cholesterol Hyperlipidemia Hypertension Prostate CA Varicose veins of right lower extremity with inflammation Family History (Updated 10/18/21 @ 08:24 by Anshu Mcmullen MD) Other No family history of coronary artery disease Surgical History (Updated 10/18/21 @ 08:24 by Anshu Mcmullen MD) No pertinent past surgical history Social History Household Members: None Housing: Condominium Do you presently have visiting nurse or other home services: Yes Alcohol intake: former Patient Tobacco Use Status: Never used Tobacco Second Hand Smoke Exposure: No Advance Directives: No service: No Current occupational status: retired and disabled Current occupation: right handed Meds Allergies Allergy/AdvReac Type Severity Reaction Status Date / Time No Known Allergies Allergy Unknown UNKNOWN Verified 09/16/21 20:25 [NO KNOWN ALLERGIES] Active Medications: Current Medications Acetaminophen (Acetaminophen 325 Mg Tablet) 650 mg PO Q6H PRN PRN Reason: Pain, Mild (Pain Scale 1-3) Albuterol/Ipratropium (Albuterol/Iprat 2.5/0.5mg 3 Ml Ampul.Neb) 3 ml INHALE RQ4H PRN PRN Reason: Shortness of Breath/Wheezing Last Admin: 10/18/21 06:11 Dose: 3 ml Docusate Sodium (Docusate Sodium 100 Mg Capsule) 100 mg PO DAILY PRN PRN Reason: Constipation Enoxaparin Sodium (Enoxaparin Sodium 40 Mg/0.4 Ml Syringe) 40 mg SUBCUT Q24H [facility] Last Admin: 10/18/21 05:17 Dose: 40 mg Methylprednisolone Sodium Succinate (Methylprednisolone Sod Succ 40 Mg/Ml Vial) 40 mg IVPUSH Q12H [facility] Last Admin: 10/18/21 05:17 Dose: 40 mg Ondansetron HCl (Ondansetron Hcl 4 Mg/2 Ml Vial) 4 mg IVPUSH Q8H PRN PRN Reason: Nausea and Vomiting Sodium Chloride (0.9 % Sodium Chloride Flush 3 Ml Syringe) 3 ml IVFLUSH QSHIFT [facility] Last Admin: 10/18/21 08:11 Dose: 3 ml Home Medications Medication Instructions Recorded Confirmed Last Taken Type acetaminophen 650 mg 2 tab PO Q8H PRN Pain 10/18/21 10/18/21 Unknown History tablet,extended release albuterol sulfate 1 amp inhalation Q6H PRN wheezing 10/18/21 10/18/21 Unknown History albuterol sulfate 90 mcg/actuation 2 puff PO Q4-6H PRN Allergic 10/18/21 10/18/21 Unknown History aerosol inhaler (Ventolin HFA) Reaction amlodipine 5 mg tablet 1 tab PO DAILY 10/18/21 10/18/21 Unknown History aspirin 81 mg tablet,delayed 1 tab PO DAILY 10/18/21 10/18/21 Unknown History release atorvastatin 20 mg tablet 1 tab PO DAILY 10/18/21 10/18/21 Unknown History celecoxib 200 mg capsule 1 cap PO DAILY PRN Pain 10/18/21 10/18/21 Unknown History cholecalciferol (vitamin D3) 25 1 cap PO DAILY 10/18/21 10/18/21 Unknown History mcg (1,000 unit) capsule (Vitamin D3) cyclobenzaprine 10 mg tablet 1 tab PO Q8H PRN muscle spasm 10/18/21 10/18/21 Unknown History fluticasone propionate 220 1 puff PO BID 10/18/21 10/18/21 Unknown History mcg/actuation HFA aerosol inhaler (Flovent HFA) fluticasone propionate 50 2 spray intranasal DAILY 10/18/21 10/18/21 Unknown History mcg/actuation nasal spray,suspension hydrochlorothiazide 12.5 mg tablet 1 tab PO DAILY 10/18/21 10/18/21 Unknown History ipratropium 20 mcg-albuterol 100 1 puff PO QID 10/18/21 10/18/21 Unknown History mcg/actuation mist for inhalation (Combivent Respimat) montelukast 10 mg tablet 1 tab PO QPM 10/18/21 10/18/21 Unknown History naproxen 500 mg tablet 1 tab PO BID PRN pain 10/18/21 10/18/21 Unknown History Physical Exam Vital Signs and Narrative: Vital Signs: Last Vital Signs Temp 97.9 F 10/18/21 07:16 Pulse 52 10/18/21 07:16 Resp 14 10/18/21 07:16 BP 121/53 L 10/18/21 07:16 Pulse Ox 95 10/18/21 07:16 O2 Del Method 10/18/21 07:16 BMI result Body Mass Index 29.1 Const: General: cooperative and no acute distress Orientation/consciousness: patient oriented x3 Eyes: General: appearance normal, both eyes and all related structures Resp: Other: Mild wheezing expiration Effort & Inspection: normal respiratory effort Cardio: Rate: regular rate Rhythm: regular rhythm GI: Palpation (GI): Soft to palpation Auscultation: normal bowel sounds Skin: General skin exam: no rashes or lesions noted Neuro: General: patient oriented x3 Cognition (Neuro): normal cognition Extrem: General: Yes normal to inspection and Yes no pedal edema Results Labs CBC and Chem 7: 10/18/21 06:26 10/18/21 06:26 Labs: Laboratory Results - last 24 hr 10/17/21 10/17/21 10/17/21 20:35 20:35 20:35 MCV 86.6 MCH 30.7 MCHC 35.5 RDW 13.1 Plt Count 258 D MPV 9.8 Immature Gran % (Auto) 0.2 Neut % (Auto) 59.4 Lymph % (Auto) 24.6 [place] % (Auto) 9.7 Eos % (Auto) 5.6 H Baso % (Auto) 0.5 Lymph # (Auto) 2.4 [place] # (Auto) 0.9 Eos # (Auto) 0.5 H Baso # (Auto) 0.1 Abs Immat Gran (auto) 0.02 Absolute Neuts (auto) 5.8 Absolute Nucleated RBC 0.000 Nucleated RBC % (auto) 0.0 Anion Gap 13 Estim Creat Clear Calc 61.9 Estimated GFR > 60 Random Glucose 110 Calcium 8.7 Total Bilirubin 0.8 AST 26 D ALT 24 Alkaline Phosphatase 106 Troponin I High Sens 10.1 D B-Natriuretic Peptide 71 Total Protein 7.1 Albumin 3.9 COVID-19 ([facility]) COVID-19 Cream.HR Com 10/18/21 10/18/21 10/18/21 02:12 06:26 06:26 MCV 86.7 MCH 30.5 MCHC 35.2 RDW 13.0 Plt Count 244 MPV 9.7 Immature Gran % (Auto) 0.4 Neut % (Auto) 67.3 Lymph % (Auto) 21.8 [place] % (Auto) 5.9 Eos % (Auto) 4.1 H Baso % (Auto) 0.5 Lymph # (Auto) 2.2 [place] # (Auto) 0.6 Eos # (Auto) 0.4 Baso # (Auto) 0.1 Abs Immat Gran (auto) 0.04 H Absolute Neuts (auto) 6.8 Absolute Nucleated RBC 0.000 Nucleated RBC % (auto) 0.0 Anion Gap 12 Estim Creat Clear Calc 65.3 Estimated GFR > 60 Random Glucose 117 H Calcium 8.8 Total Bilirubin AST ALT Alkaline Phosphatase Troponin I High Sens B-Natriuretic Peptide Total Protein Albumin COVID-19 ([facility]) Negative COVID-19 Clin Com See Note Imaging Radiologist's Impressions: Impressions Chest X-Ray 10/18/21 01:00 IMPRESSION: *No acute cardiopulmonary abnormalities. *5 mm right lower lobe benign calcified pulmonary granuloma. Abdomen/Pelvis CT 10/18/21 02:35 IMPRESSION: Unenhanced CT of the abdomen and pelvis: *No acute abnormalities identified. *Mild diverticulosis of the descending colon. No evidence of acute diverticulitis. *Chronic L4 vertebral body compression deformity unchanged compared with 07/08/2020. *Cholelithiasis. *Diffuse fatty atrophy of the pancreas. Assessment and Plan (1) Acute exacerbation of chronic obstructive pulmonary disease: Status: Acute (2) Dyspnea: Status: Acute Plan 81-year-old male with past medical history of COPD presents to the hospital complaints of shortness of breath cough found to have COPD exacerbation # Dyspnea - likely 2/2 COPD exacerbation - no evidence of volume overload, BNP negative, no evidence of pulmonary congestion on x-ray - will treat COPD - monitor respiratory status # acute COPD exacerbation - in the setting of recent COVID-19 infection - No evidence of pneumonia on chest x-ray -will treat with Solu-Medrol, DuoNeb p.r.n. as well as scheduled - monitor respiratory status # hyperlipidemia - continue statin # hypertension - stable - continue antihypertensives DVT prophylaxis: Lovenox Quality Stroke Does the patient have a stroke diagnosis?: No VTE Prior VTE?: No VTE Risk Level:: Medical - moderate - high VTE Device Contraindication: Treatment Not Indicated VTE Drug Contraindication: N/A - Med Ordered
--- NOTE | 2021-10-18 08:33 | PM.DS ---
DS: Providers Provider Date of Service: 10/19/21 Date of admission: 10/18/21 03:57 Primary care physician: Rayen Og MD DS: Diagnosis Discharge Diagnosis (1) Acute exacerbation of chronic obstructive pulmonary disease: Status: Acute (2) Dyspnea: Status: Acute DS: Summary Hospital Course Hospital Course: Patient was admitted overnight and treated with steroid, bronchodilators by Neb and improved by the next day with no more symptoms, feeling comofrtable, exam without wheezes and feels comfortable going home. Will prescrib Prednisone 40 daily for 4 more days Time Spent with Patient Time attestation: Total time spent providing and/or coordinating discharge services: Discharge coordination time: Greater than 30 minutes Quality: Safe Use of Opioids Does Pt have an Active Cancer Diagnosis on the Problem List?: No Quality: Stroke Does the patient have a stroke diagnosis?: No Physical Exam Vital Signs: Vital Signs: Last Vital Signs Temp 97.9 F 10/18/21 07:16 Pulse 52 10/18/21 07:16 Resp 14 10/18/21 07:16 BP 121/53 L 10/18/21 07:16 Pulse Ox 95 10/18/21 07:16 O2 Del Method 10/18/21 07:16 BMI result Body Mass Index 29.1 Const: Other: General: AO X 3, no acute distress Resp: CTA bilateral CVS: S1,S2,RRR GI: +BS, NT, no distention Skin: No rash Neuro: motor grossly intact Psych: appropriate affect DS: Data Data Completed and Pending Labs on day of discharge: Laboratory Results - last 24 hr 10/17/21 10/17/21 10/17/21 20:35 20:35 20:35 WBC 9.7 RBC 4.33 L Hgb 13.3 L Hct 37.5 L MCV 86.6 MCH 30.7 MCHC 35.5 RDW 13.1 Plt Count 258 D MPV 9.8 Immature Gran % (Auto) 0.2 Neut % (Auto) 59.4 Lymph % (Auto) 24.6 [place] % (Auto) 9.7 Eos % (Auto) 5.6 H Baso % (Auto) 0.5 Lymph # (Auto) 2.4 [place] # (Auto) 0.9 Eos # (Auto) 0.5 H Baso # (Auto) 0.1 Abs Immat Gran (auto) 0.02 Absolute Neuts (auto) 5.8 Absolute Nucleated RBC 0.000 Nucleated RBC % (auto) 0.0 Sodium 129 L Potassium 3.9 Chloride 96 Carbon Dioxide 24 Anion Gap 13 BUN 12 Creatinine 0.97 Estim Creat Clear Calc 61.9 Estimated GFR > 60 Random Glucose 110 Calcium 8.7 Total Bilirubin 0.8 AST 26 D ALT 24 Alkaline Phosphatase 106 Troponin I High Sens 10.1 D B-Natriuretic Peptide 71 Total Protein 7.1 Albumin 3.9 COVID-19 ([facility]) COVID-19 [employer] Com 10/18/21 10/18/21 10/18/21 02:12 06:26 06:26 WBC 10.2 RBC 4.42 L Hgb 13.5 L Hct 38.3 L MCV 86.7 MCH 30.5 MCHC 35.2 RDW 13.0 Plt Count 244 MPV 9.7 Immature Gran % (Auto) 0.4 Neut % (Auto) 67.3 Lymph % (Auto) 21.8 [place] % (Auto) 5.9 Eos % (Auto) 4.1 H Baso % (Auto) 0.5 Lymph # (Auto) 2.2 [place] # (Auto) 0.6 Eos # (Auto) 0.4 Baso # (Auto) 0.1 Abs Immat Gran (auto) 0.04 H Absolute Neuts (auto) 6.8 Absolute Nucleated RBC 0.000 Nucleated RBC % (auto) 0.0 Sodium 133 L Potassium 3.8 Chloride 97 Carbon Dioxide 28 Anion Gap 12 BUN 11 Creatinine 0.92 Estim Creat Clear Calc 65.3 Estimated GFR > 60 Random Glucose 117 H Calcium 8.8 Total Bilirubin AST ALT Alkaline Phosphatase Troponin I High Sens B-Natriuretic Peptide Total Protein Albumin COVID-19 ([facility]) Negative COVID-19 Clin Com See Note Discharge Plan Discharge Anticipated Discharge Date/Time: 10/18/21 08:32 Patient Disposition: Home, Self-Care Discharge Diagnosis: Asthma exacerbation Referrals: Rayne Brizuela MD [Primary Care Provider] - 1 Week Discharge Medications: New prednisone 20 mg tablet 40 mg PO DAILY Qty: 8 0RF Continued celecoxib 200 mg capsule 1 cap PO DAILY PRN (Reason: Pain) cyclobenzaprine 10 mg tablet 1 tab PO Q8H PRN (Reason: muscle spasm) atorvastatin 20 mg tablet 1 tab PO DAILY albuterol sulfate 2.5 mg /3 mL (0.083 %) solution for nebulization 1 amp inhalation Q6H PRN (Reason: wheezing) amlodipine 5 mg tablet 1 tab PO DAILY aspirin 81 mg tablet,delayed release (DR/EC) 1 tab PO DAILY acetaminophen 650 mg tablet extended release 2 tab PO Q8H PRN (Reason: Pain) montelukast 10 mg tablet 1 tab PO QPM fluticasone propionate [Flovent HFA] 220 mcg/actuation HFA aerosol inhaler 1 puff PO BID albuterol sulfate [Ventolin HFA] 90 mcg/actuation HFA aerosol inhaler 2 puff PO Q4-6H PRN (Reason: Allergic Reaction) fluticasone propionate 50 mcg/actuation spray,suspension 2 spray intranasal DAILY naproxen 500 mg tablet 1 tab PO BID PRN (Reason: pain) cholecalciferol (vitamin D3) [Vitamin D3] 25 mcg (1,000 unit) capsule 1 cap PO DAILY hydrochlorothiazide 12.5 mg tablet 1 tab PO DAILY Combivent Respimat 20-100 mcg/actuation mist 1 puff PO QID Discharge Orders: Discharge Order (Routine); Ordered 10/19/21 Ordered By: Kai Badillo Diet: advance to usual diet Activity on Discharge: As tolerated Stand Alone Forms: Patient Portal Discharge page Care Plan Goals: Full recovery from COPD Health Concerns: copd exacerbation Plan of Treatment: Use inhalers and take Prednisone as directed and go see your doctor in a week, call for appointment Assessment: As above
--- NOTE | 2021-10-18 08:34 | PM.EVENT ---
Event Note Date of Service: 10/18/21 Event Note: Admitted this morning with exacerbation of asthma, improving, might DC later today after reeval
--- NOTE | 2021-10-18 08:56 | PC.NURSE ---
DR Douglas order to wait to discharge patient and continue to monitor and reassess for possible discharge after lunch . try to contact family members . patient aware . MD aware .
--- NOTE | 2021-10-18 09:10 | PC.NURSE ---
pt's son (julee, ) at bedside, aware of plan of care.
[2021-10-18] MEDS: Cholecalciferol (Vitamin D3) 25 MCG TABLET PO (10:12)
[2021-10-18] MEDS: Aspirin Enteric Coated 81 MG TABLET.DR PO (10:13)
[2021-10-18] MEDS: hydroCHLOROthiazide 12.5 MG TABLET PO (10:13)
[2021-10-18] MEDS: Atorvastatin Calcium 20 MG TABLET PO (10:16)
[2021-10-18] MEDS: Fluticasone Propionate Nasal 16 GM SPRAY 2 SPRAY NOSTRIL-B (10:17)
[2021-10-18] MEDS: amLODIPine Besylate 5 MG TABLET PO (10:17)
--- NOTE | 2021-10-18 20:46 | PC.NURSE ---
pt resting in bed, given a sandwich. no c/o at this time
[2021-10-18] MEDS: Montelukast Sodium 10 MG TABLET PO (21:08)
[2021-10-18] MEDS: Acetaminophen 325 MG TABLET 650 MG PO (23:44)
[2021-10-19] VITALS: BP 136/62; PULSE 83; RESP 18; TEMP 36.4; O2SAT 96
[2021-10-19 00:25] VITALS: BMI 30.9
[2021-10-19] MEDS: 0.9 % Sodium Chloride Flush 3 ML SYRINGE IVFLUSH ×2 (00:59→09:06)
[2021-10-19 04:00] VITALS: BP 144/67; PULSE 82; RESP 16; TEMP 37; O2SAT 97
[2021-10-19] MEDS: methylPREDNISolone Sod Succ 40 MG/ML VIAL IVPUSH (05:14)
[2021-10-19] MEDS: Enoxaparin Sodium 40 MG/0.4 ML SYRINGE SUBCUT (05:16)
[2021-10-19 07:38] VITALS: BP 130/67; PULSE 80; RESP 20; TEMP 37.1; O2SAT 96
[2021-10-19] MEDS: Albuterol/Iprat 2.5/0.5MG 3 ML AMPUL.NEB INHALE ×2 (08:00→11:27)
[2021-10-19 08:02] VITALS: PULSE 92; RESP 18; O2SAT 96
[2021-10-19] MEDS: Aspirin Enteric Coated 81 MG TABLET.DR PO (09:05)
[2021-10-19] MEDS: amLODIPine Besylate 5 MG TABLET PO (09:05)
[2021-10-19] MEDS: Cholecalciferol (Vitamin D3) 25 MCG TABLET PO (09:05)
[2021-10-19] MEDS: hydroCHLOROthiazide 12.5 MG TABLET PO (09:05)
[2021-10-19] MEDS: Atorvastatin Calcium 20 MG TABLET PO (09:05)
[2021-10-19] MEDS: Fluticasone Propionate Nasal 16 GM SPRAY 2 SPRAY NOSTRIL-B (10:23)
[2021-10-19 11:28] VITALS: PULSE 91; RESP 18; O2SAT 97
[2021-10-19 12:00] VITALS: BP 132/63; PULSE 91; RESP 20; TEMP 36.9; O2SAT 98
--- NOTE | 2021-10-19 12:29 | MHC.CM.PN ---
Patient has been medically cleared for dc to home today, self care. CM addressed IMM with Patient at bedside, providing him with the original and placing a copy on the chart.
== END 2021-10-19 15:55 | disposition home or self-care (01) | DRG 202 ==
LOC: HO.ED 10-18 01:48 → HO.EDOVER 10-18 04:02 → HO.IMC 10-18 23:43
PROVIDERS: Admitting Provider Internal Medicine; Emergency Provider Emergency Medicine; PCP Internal Medicine; Visit Provider Internal Medicine
DX: J45.901 Unspecified asthma with (acute) exacerbation (principal); J44.1 Chronic obstructive pulmonary disease with (acute) exacerbation; E78.5 Hyperlipidemia, unspecified; I10 Essential (primary) hypertension; Z20.822 Contact with and (suspected) exposure to COVID-19; Z85.46 Personal history of malignant neoplasm of prostate; Z79.51 Long term (current) use of inhaled steroids; Z79.52 Long term (current) use of systemic steroids; Z79.899 Other long term (current) drug therapy
CPT/HCPCS: 36415; 71045; 74176; 80048; 80053; 83880; 84484; 85025; 87635; 93005; 94640; 96374; 97162; 99285; J1650; J1940; J2920

== ENCOUNTER 2022-02-23 11:34 | Emergency (ER) | payer OTHER, SELFPAY ==
--- NOTE | ~2022-02-23 | XR_ITS ---
EXAMINATION: XR CHEST CLINICAL INFORMATION: Chest pain COMPARISON: None TECHNIQUE: 2 views of the chest were obtained. FINDINGS: Small calcified granuloma at the right base. Lungs otherwise are considered grossly clear. No suspicious consolidations or masses. No pleural effusion. Heart and pulmonary vessels normal. No congestive change. XR/XR chest 2V IMPRESSION: No active disease.
[2022-02-23 11:58] VITALS: BP 151/58; PULSE 68; RESP 20; TEMP 36.8; O2SAT 98; BMI 29.7
--- NOTE | 2022-02-23 12:05 | ED.GENADULT ---
HPI - General Adult General Chief complaint: Weakness Stated complaint: INCR AGITATION PER FAMILY Time Seen by Provider: 02/23/22 11:46 Source: patient and interpreter deaf History of Present Illness HPI narrative: 81-year-old male brought in by EMS and reportedly by the family there were concerns for increased confusion and weakness. Patient denies any current complaints other than frequent urination and burning in my right chest . 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 Patient is alert and oriented x3 and does not appear to be confused at this time. Related Data Home Medications Medication Instructions Recorded Confirmed acetaminophen 650 mg 2 tab PO Q8H PRN Pain 10/18/21 10/18/21 tablet,extended release albuterol sulfate 2.5 mg/3 mL 1 amp inhalation Q6H PRN wheezing 10/18/21 10/18/21 (0.083 %) solution for nebulization albuterol sulfate 90 mcg/actuation 2 puff PO Q4-6H PRN Allergic 10/18/21 10/18/21 aerosol inhaler (Ventolin HFA) Reaction amlodipine 5 mg tablet 1 tab PO DAILY 10/18/21 10/18/21 aspirin 81 mg tablet,delayed 1 tab PO DAILY 10/18/21 10/18/21 release atorvastatin 20 mg tablet 1 tab PO DAILY 10/18/21 10/18/21 celecoxib 200 mg capsule 1 cap PO DAILY PRN Pain 10/18/21 10/18/21 cholecalciferol (vitamin D3) 25 1 cap PO DAILY 10/18/21 10/18/21 mcg (1,000 unit) capsule (Vitamin D3) cyclobenzaprine 10 mg tablet 1 tab PO Q8H PRN muscle spasm 10/18/21 10/18/21 fluticasone propionate 220 1 puff PO BID 10/18/21 10/18/21 mcg/actuation HFA aerosol inhaler (Flovent HFA) fluticasone propionate 50 2 spray intranasal DAILY 10/18/21 10/18/21 mcg/actuation nasal spray,suspension hydrochlorothiazide 12.5 mg tablet 1 tab PO DAILY 10/18/21 10/18/21 ipratropium 20 mcg-albuterol 100 1 puff PO QID 10/18/21 10/18/21 mcg/actuation mist for inhalation (Combivent Respimat) montelukast 10 mg tablet 1 tab PO QPM 10/18/21 10/18/21 naproxen 500 mg tablet 1 tab PO BID PRN pain 10/18/21 10/18/21 Previous Rx's Medication Instructions Recorded prednisone 20 mg tablet 40 mg PO DAILY #8 tabs 10/19/21 Allergies Allergy/AdvReac Type Severity Reaction Status Date / Time No Known Allergies Allergy Unknown UNKNOWN Verified 09/16/21 20:25 [NO KNOWN ALLERGIES] Review of Systems Review of Systems: Pertinent positives and negatives as stated in HPI 10 point review of systems is otherwise negative. [facility] Past Medical History Source: nursing notes reviewed Medical History Allergic rhinitis Anasarca Asthma Bilateral primary osteoarthritis of knee COPD (chronic obstructive pulmonary disease) COPD (chronic obstructive pulmonary disease) COVID-19 High cholesterol Hyperlipidemia Hypertension Prostate CA Varicose veins of right lower extremity with inflammation Surgical History No pertinent past surgical history Family History Family History Other No family history of coronary artery disease Social History Social History Household Members: None Housing: Condominium Do you presently have visiting nurse or other home services: Yes (meghna - dtr and son are APPLICATION PACKAGING SPECIALIST's) Alcohol intake: former Patient Tobacco Use Status: Never used Tobacco Second Hand Smoke Exposure: No Advance Directives: Yes Advance Directives on File: Yes Advance Directives Date on File: 07/08/20 service: No Current occupational status: retired and disabled Current occupation: right handed Physical Exam ED Vital Signs: Vital Signs - 24 hr 02/23/22 11:58 02/23/22 16:06 Temperature 98.2 F 97.8 F Pulse Rate 68 61 Respiratory Rate 20 20 Blood Pressure 151/58 H 145/65 H Pulse Oximetry 98 98 Oxygen Delivery Method Room Air Room Air BMI result Body Mass Index 29.7 VITAL SIGNS: Reviewed. GENERAL: Well developed, well nourished, in no acute distress. HEAD: Normocephalic/atraumatic EYES: PERRLA, EOMI EARS: Ext canals without abnormality OROPHARYNX: no oral lesions noted, posterior pharynx clear LUNGS: Good inspiratory effort, decreased on the right with crackles and rales, mild tachypnea without increased work of breathing. SpO2<98> CARDIOVASCULAR: Regular rate and rhythm without noted murmurs, no JVD or lower extremity edema. ABDOMEN: Soft, non-tender, non-distended with bowel sounds. MUSCULOSKELETAL: No tenderness, deformities, or effusions noted on gross inspection. EXTREMITIES: No cyanosis, clubbing or edema. SKIN: Inspection of the skin reveals no rashes NEUROLOGIC: Alert and oriented x 3. Strength and sensation to light touch were grossly intact x 4. Course Course Course Narrative: 81-year-old male with history and clinical presentation suggestive of possible overflow incontinence with urinary tract infection. Review of all investigations otherwise negative for acute findings. Patient does not appear to be agitated nor does he appear to be confused and he is released back to home with a referral to follow-up with Urology. Medical Decision Making Lab Data Result diagrams: 02/23/22 12:34 02/23/22 12:34 Labs: Lab Results 02/23/22 02/23/22 02/23/22 Range/Units 12:34 12:34 12:38 WBC 8.5 (4.8-10.8) X10*3/uL RBC 4.74 (4.60-5.80) X10*6/uL Hgb 14.4 (14.0-18.0) g/dl Hct 41.5 L (42.0-52.0) % MCV 87.6 (80.0-98.0) fL MCH 30.4 (27.0-33.0) pg MCHC 34.7 (31.0-36.0) g/dl RDW 13.1 (11.0-16.0) % Plt Count 247 (160-400) X10*3/uL MPV 10.1 (9.4-12.4) fL Immature Gran % (Auto) 0.2 (0.0-0.4) % Neut % (Auto) 65.6 (45-73) % Lymph % (Auto) 19.7 L (20-40) % [place] % (Auto) 9.9 (2-11) % Eos % (Auto) 3.8 (0-4) % Baso % (Auto) 0.8 (0-2) % Lymph # (Auto) 1.7 (1.2-4.9) X10*3/uL [place] # (Auto) 0.8 (0.1-1.2) X10*3/uL Eos # (Auto) 0.3 (0.0-0.4) X10*3/uL Baso # (Auto) 0.1 (0.0-0.2) X10*3/uL Abs Immat Gran (auto) 0.02 (0.00-0.03) X10*3/uL Absolute Neuts (auto) 5.6 (2.0-8.3) x10*3/uL Absolute Nucleated RBC 0.000 (0.0-0.012) X10*3/uL Nucleated RBC % (auto) 0.0 (0.0-0.2) /100WBC VBG pH 7.43 (7.32-7.43) VBG pCO2 38 mmHg VBG pO2 33 mmHg VBG HCO3 25 (22-26) mmol/L VBG O2 Saturation 51.0 % VBG Base Excess 1.5 mmol/L Sodium 139 (135-145) mmol/L Potassium 4.5 (3.3-5.1) mmol/L Chloride 102 (96-108) mmol/L Carbon Dioxide 25 (22-29) mmol/L Anion Gap 17 (12-20) BUN 20 H D (9-16) mg/dL Creatinine 1.05 (0.5-1.4) mg/dL Estim Creat Clear Calc 57.8 Estimated GFR > 60 Random Glucose 96 (60-115) mg/dL Calcium 9.6 D (8.4-10.2) mg/dL Total Bilirubin 0.5 (0.0-1.0) mg/dL AST 25 (5-37) U/L ALT 17 (0-40) U/L Alkaline Phosphatase 96 (39-117) U/L Total Protein 7.3 (6.5-8.0) g/dL Albumin 4.1 (3.5-5.0) g/dL Urine Color Urine Appearance Urine pH (5.0-9.0) Ur Specific Perry (1.005-1.025) Urine Protein (Neg-Trace) mg/dL Urine Glucose (UA) (Negative) mg/dL Urine Ketones (Negative) mg/dL Urine Blood (Negative) Urine Nitrite (Negative) Ur Leukocyte Esterase (Negative) 02/23/22 Range/Units 15:44 WBC (4.8-10.8) X10*3/uL RBC (4.60-5.80) X10*6/uL Hgb (14.0-18.0) g/dl Hct (42.0-52.0) % MCV (80.0-98.0) fL MCH (27.0-33.0) pg MCHC (31.0-36.0) g/dl RDW (11.0-16.0) % Plt Count (160-400) X10*3/uL MPV (9.4-12.4) fL Immature Gran % (Auto) (0.0-0.4) % Neut % (Auto) (45-73) % Lymph % (Auto) (20-40) % [place] % (Auto) (2-11) % Eos % (Auto) (0-4) % Baso % (Auto) (0-2) % Lymph # (Auto) (1.2-4.9) X10*3/uL [place] # (Auto) (0.1-1.2) X10*3/uL Eos # (Auto) (0.0-0.4) X10*3/uL Baso # (Auto) (0.0-0.2) X10*3/uL Abs Immat Gran (auto) (0.00-0.03) X10*3/uL Absolute Neuts (auto) (2.0-8.3) x10*3/uL Absolute Nucleated RBC (0.0-0.012) X10*3/uL Nucleated RBC % (auto) (0.0-0.2) /100WBC VBG pH (7.32-7.43) VBG pCO2 mmHg VBG pO2 mmHg VBG HCO3 (22-26) mmol/L VBG O2 Saturation % VBG Base Excess mmol/L Sodium (135-145) mmol/L Potassium (3.3-5.1) mmol/L Chloride (96-108) mmol/L Carbon Dioxide (22-29) mmol/L Anion Gap (12-20) BUN (9-16) mg/dL Creatinine (0.5-1.4) mg/dL Estim Creat Clear Calc Estimated GFR Random Glucose (60-115) mg/dL Calcium (8.4-10.2) mg/dL Total Bilirubin (0.0-1.0) mg/dL AST (5-37) U/L ALT (0-40) U/L Alkaline Phosphatase (39-117) U/L Total Protein (6.5-8.0) g/dL Albumin (3.5-5.0) g/dL Urine Color Yellow Urine Appearance Cloudy Urine pH 7.0 (5.0-9.0) Ur Specific Perry 1.015 (1.005-1.025) Urine Protein Negative (Neg-Trace) mg/dL Urine Glucose (UA) Negative (Negative) mg/dL Urine Ketones Negative (Negative) mg/dL Urine Blood Negative (Negative) Urine Nitrite Negative (Negative) Ur Leukocyte Esterase Negative (Negative) Discharge Plan Discharge Clinical Impression: Urinary frequency Patient Disposition: Home, Self-Care Instructions: Polyuria (ED) Additional Instructions: 1. Reanudar todos los medicamentos caseros seg?n lo prescrito. 2. Se le nolasco proporcionado michale derivaci?n para seguimiento con Urolog?a. 3. Llame al consultorio de bland proveedor de atenci?n primaria y programe michael loc de seguimiento. Regrese a la jey de emergencias por empeoramiento de los s?ntomas. Prescriptions: No Action celecoxib 200 mg capsule 1 cap PO DAILY PRN (Reason: Pain) cyclobenzaprine 10 mg tablet 1 tab PO Q8H PRN (Reason: muscle spasm) atorvastatin 20 mg tablet 1 tab PO DAILY albuterol sulfate 2.5 mg /3 mL (0.083 %) solution for nebulization 1 amp inhalation Q6H PRN (Reason: wheezing) amlodipine 5 mg tablet 1 tab PO DAILY aspirin 81 mg tablet,delayed release (DR/EC) 1 tab PO DAILY acetaminophen 650 mg tablet extended release 2 tab PO Q8H PRN (Reason: Pain) montelukast 10 mg tablet 1 tab PO QPM fluticasone propionate [Flovent HFA] 220 mcg/actuation HFA aerosol inhaler 1 puff PO BID albuterol sulfate [Ventolin HFA] 90 mcg/actuation HFA aerosol inhaler 2 puff PO Q4-6H PRN (Reason: Allergic Reaction) fluticasone propionate 50 mcg/actuation spray,suspension 2 spray intranasal DAILY naproxen 500 mg tablet 1 tab PO BID PRN (Reason: pain) cholecalciferol (vitamin D3) [Vitamin D3] 25 mcg (1,000 unit) capsule 1 cap PO DAILY hydrochlorothiazide 12.5 mg tablet 1 tab PO DAILY Combivent Respimat 20-100 mcg/actuation mist 1 puff PO QID prednisone 20 mg tablet 40 mg PO DAILY Qty: 8 0RF Referrals: Rayne Brizuela MD [Primary Care Provider] - Kajal Urena MD [Physician] - (Urinary frequency without UTI) Print Language: Setswana
--- OUTSIDE RECORDS SUMMARY | 2022-02-23 12:26 | XMS_ITS | Continuity of Care Document ---
:1940 Author Organization [facility] Address [address] [place] [address]- Care Team Providers Name Role Phone Akiko HOYT, Reji Primary Care Physician Encounter [facility] Date(s): 04/09/21 - 04/11/[address] [address]- Discharge Disposition: A-D/C Home Attending Physician: Chelsea Michaud MD Admitting Physician: Glenn Min DO Referring Physician: Not on Staff, Referring MD Allergies, Adverse Reactions, Alerts No Known Medication Allergies Medications Albuterol (Eqv-ProAir HFA) 90 mcg/inh inhalation aerosol 2 puffs, Inhalation, Every 6 hours, 0 Refills, Maintenance, 04/10/21 2:17:00 EST, Partial fill upon patient request if the prescription is for a schedule II opioid drug. Start Date: 04/10/21 Status: Orderedaspirin 81 mg oral delayed release tablet 81 mg, 1, tablet, By Mouth, Daily, # 30 tablet, Refills 0, Maintenance, 04/10/21 2:18:00 EST, Partial fill upon patient request if the prescription is for a schedule II opioid drug. Start Date: 04/10/21 Status: Orderedcholecalciferol 1000 intl units oral capsule 1 capsule = 25 mcg, By Mouth, Daily, # 75 capsule, 0 Refills, Maintenance, 04/10/21 2:19:00 EST, Capsule, Partial fill upon patient request if the prescription is for a schedule II opioid drug. Start Date: 04/10/21 Status: OrderedFlovent Diskus 50 mcg/inh inhalation powder 1 each, Inhalation, 2 times a day, # 60 each, 0 Refills, Maintenance, 04/10/21 2:17:00 EST, Powder, Partial fill upon patient request if the prescription is for a schedule II opioid drug. Start Date: 04/10/21 Status: OrderedhydroCHLOROthiazide 12.5 mg oral capsule 1 capsule = 12.5 mg, By Mouth, Daily, # 30 capsule, 0 Refills, Maintenance, 04/10/21 2:19:00 EST, Capsule, Partial fill upon patient request if the prescription is for a schedule II opioid drug. Start Date: 04/10/21 Status: Orderedmontelukast 10 mg oral tablet 10 mg, 1, tablet, By Mouth, Daily, Refills 0, Maintenance, 04/10/21 2:18:00 EST, Partial fill upon patient request if the prescription is for a schedule II opioid drug. Start Date: 04/10/21 Status: OrderedTylenol 325 mg oral tablet 975 mg, 3, tablet, By Mouth, Every 6 hours, Refills 0, Maintenance, 04/11/21 10:22:00 EST, Partial fill upon patient request if the prescription is for a schedule II opioid drug. Start Date: 04/11/21 Status: Ordered Problem List Condition Effective Dates Status Health Status Informant Obese class I(Confirmed) Active Results Radiology Reports Exam Date Time Procedure Performing Provider Status 04/09/21 7:02 PM Chest 2 Views Frontal and Lat Anthony Marroquin (Verified) Notes:(Chest 2 Views Frontal and Lat) Reason For Exam: Chest Pain;Other:RESULT: Chest 2 Views Frontal and Lat Chest 2 Views Frontal and Lat Hx of Present Illness: Pt seen at urgent care today for concerns of chest pain and dizzines. Pt reports left sided chest pain but denies dizziness at this time.; Reason: Other:; Chest Pain; Clinical Question(s): CHF COMPARISON: None. FINDINGS: LINES AND TUBES: None. LUNGS AND PLEURA: Clear lungs. Normal pulmonary vascularity. Probable calcified granuloma right lung base. No pleural effusion. No pneumothorax. HEART, MEDIASTINUM AND GALO: Heart is normal in size. Normal upper mediastinal and hilar contour. BONES AND SOFT TISSUES: No acute abnormality. IMPRESSION: No acute abnormality. WSN: [id number] Ordering Physician: Shilpa Osborn Dictated By: Isaura Joe MD, I Dictated Date/Time: 04/09/21 7:10 pm Reviewed By: Isaura Joe MD, I Signed By: Isaura Joe MD, I Signed Date/Time: 04/09/21 7:10 pm Transcribed By: CHIRAG Transcribed Date/Time: 04/09/21 7:09 pm Vital Signs Most recent to oldest 1 2 3 [Reference Range]: Height 170 cm 170 cm 170 cm (04/11/21 7:52 AM) (04/11/21 4:44 AM) (04/11/21 12:40 AM) Weight 93.8 kg 93.2 kg (04/09/21 10:22 PM) (04/09/21 8:58 PM) Oxygen Saturation [94-100 99 % 97 % 97 % %] (04/11/21 10:41 AM) (04/11/21 7:52 AM) (04/11/21 4:44 AM) Pulse Rate [55-90 bpm] 65 bpm 68 bpm 62 bpm (04/11/21 10:41 AM) (04/11/21 7:52 AM) (04/11/21 4:44 AM) Body Mass Index 32.46 [18.5-24.99] *>HHI* (04/09/21 10:22 PM) Blood Pressure 153/64 mm Hg 143/89 mm Hg 125/76 mm Hg [90-138/55-84 mm Hg] *H* *H* (04/11/21 4 :44 AM) (04/11/21 10:41 AM) (04/11/21 7:52 AM) Respiratory Rate [16-30 18 br/min 18 br/min 18 br/mi n br/min] (04/11/21 10:41 AM) (04/11/21 7:52 AM) (04/11/21 7:38 AM) Temperature [96.8-100.4 97.8 DegF 98.3 DegF 97.7 Deg F DegF] (04/11/21 10:41 AM) (04/11/21 7:52 AM) (04/11/21 4:44 AM) Mode of Delivery (Oxygen) Room air Room air Room a ir (04/11/21 10:41 AM) (04/11/21 7:52 AM) (04/11/21 4:44 AM) Blood pressure sites Arm, right Arm, left Arm, right (04/11/21 10:41 AM) (04/11/21 7:52 AM) (04/11/21 4:44 AM) Temperature Route Oral Oral Oral (04/11/21 10:41 AM) (04/11/21 7:52 AM) (04/11/21 4:44 AM) Dry Weight 93.8 kg (04/09/21 10:22 PM) Weight Obtained Via Bed scale (04/09/21 10:22 PM) Dry Weight Obtained Via Bed scale (04/09/21 10:22 PM)
--- OUTSIDE RECORDS SUMMARY | 2022-02-23 12:26 | XMS_ITS | Continuity of Care Document ---
:1940 Author Organization [facility] Address [address] [place] [address]- Care Team Providers Name Role Phone Not on Staff, PCP Primary Care Physician Unavailable Encounter [facility] Date(s): 03/31/20 - 03/31/[address] [address] Discharge Disposition: A-D/C Home Attending Physician: Fabian Gonsales MD Admitting Physician: Fabian Gonsales MD Referring Physician: Not on Staff, Referring MD Allergies, Adverse Reactions, Alerts No Known Medication Allergies Medications amoxicillin 875 mg oral tablet 1 tablet = 875 mg, By Mouth, 2 times a day, for 14 days, # 28 tablet, 0 Refills, Acute 04/14/20 14:08:00 EST, 03/31/20 14:08:00 EST, Tablet, Partial fill upon patient request if the prescription is fora schedule II opioid drug. Start Date: 03/31/20 Stop Date: 04/14/20 Status: Ordered Results Radiology Reports Exam Date Time Procedure Performing Provider Status 03/31/20 12:50 PM Chest Portable Dione Guevara; Auth (Ve rified) Notes:(Chest Portable) Reason For Exam: Shortness of BreathRESULT: Chest Portable Chest Portable Hx of Present Illness: Patient c o L sided headache L sided ear pain since yesterday around 7P. Pt states his headache was worse upon awakening this morning. Pt states he has some dizziness. Pt states he ran out of his medication that usually helps his headache.; Reason: Shortness of Breath; Clinical Q uestion(s): CHF COMPARISON: Correlation with report of exam dated 01/25/2006. Images are no longer available. FINDINGS: LINES AND TUBES: None. LUNGS AND PLEURA: There is a calcified granuloma at the right lung base, probably corresponding to findings described on the previous examination. No focal airspace consolidation. Minimal scarring or atelectasis at the left lung base. Normal pulmonary vascularity. No pleural effusion. No pneumothorax. HEART, MEDIASTINUM AND GALO: Heart is normal in size. Aorta is mildly calcified. BONES AND SOFT TISSUES: No acute abnormality. IMPRESSION: No acute abnormality. WSN: [id number] Ordering Physician: Fabian Gonsales Dictated By: Ayaka Hernandez MD Dictated Date/Time: 03/31/20 1:04 pm Reviewed By: Ayaka Hernandez MD Signed By: Ayaka Hernandez MD Signed Date/Time: 03/31/20 1:04 pm Transcribed By: CHIRAG Transcribed Date/Time: 03/31/20 1:02 pm Vital Signs Most recent to oldest [Reference Range]: 1 2 Oxygen Saturation [94-100 %] 100 % 98 % (03/31/20 2:17 PM) (03/31/20 10:10 AM) Pulse Rate [55-90 bpm] 64 bpm 73 bpm (03/31/20 2:17 PM) (03/31/20 10:10 AM) Blood Pressure [90-138/55-84 mm Hg] 146/101 mm Hg 159/ 60 mm Hg *H* *H* (03/31/20 2:17 PM) (03/31/20 10:10 AM) Respiratory Rate [16-30 br/min] 16 br/min (03/31/20 10:10 AM) Temperature [96.8-100.4 DegF] 97.4 DegF (03/31/20 10:10 AM) Mode of Delivery (Oxygen) Room air Room air (03/31/20 2:17 PM) (03/31/20 10:10 AM) Blood pressure sites Arm, left (03/31/20 10:10 AM) Temperature Route Oral (03/31/20 10:10 AM)
[2022-02-23 12:40] LABS: MANUAL DIFF FLAG NO
[2022-02-23 12:42] LABS: Basophils Absolute Auto 0.1 X10*3/uL (0.0-0.2); Basophils Percent Auto 0.8 % (0-2); Eosinophils Absolute Auto 0.3 X10*3/uL (0.0-0.4); Eosinophils Percent Auto 3.8 % (0-4); Hematocrit 41.5 % (42.0-52.0); Hemoglobin 14.4 g/dl (14.0-18.0); Imm Gran Abs Auto 0.02 X10*3/uL (0.00-0.03); Imm Gran Pct Auto 0.2 % (0.0-0.4); Lymphocytes Absolute Auto 1.7 X10*3/uL (1.2-4.9); Lymphocytes Percent Auto 19.7 % (20-40); Mean Corpuscular HGB Conc 34.7 g/dl (31.0-36.0); Mean Corpuscular Hemoglobin 30.4 pg (27.0-33.0); Mean Corpuscular Volume 87.6 fL (80.0-98.0); Mean Platelet Volume 10.1 fL (9.4-12.4); Monocytes Absolute Auto 0.8 X10*3/uL (0.1-1.2); Monocytes Percent Auto 9.9 % (2-11); Neutrophils Absolute Auto 5.6 x10*3/uL (2.0-8.3); Neutrophils Percent Auto 65.6 % (45-73); Platelet Count 247 X10*3/uL (160-400); Red Blood Count 4.74 X10*6/uL (4.60-5.80); Red Cell Distribution Width 13.1 % (11.0-16.0); White Blood Count 8.5 X10*3/uL (4.8-10.8)
[2022-02-23 12:43] LABS: Venous Blood Gas Refer to POC result
[2022-02-23 12:44] LABS: VBG Base Excess 1.5 mmol/L; VBG HCO3 25 mmol/L (22-26); VBG pCO2 38 mmHg; VBG pH 7.43 (7.32-7.43); VBG pO2 33 mmHg
[2022-02-23 13:06] LABS: Alanine Aminotransferase 17 U/L (0-40); Albumin Level 4.1 g/dL (3.5-5.0); Alkaline Phosphatase 96 U/L (39-117); Anion Gap 17 (12-20); Aspartate Amino Transferase 25 U/L (5-37); Bilirubin Total 0.5 mg/dL (0.0-1.0); Blood Urea Nitrogen 20 mg/dL (9-16); Calcium 9.6 mg/dL (8.4-10.2); Carbon Dioxide 25 mmol/L (22-29); Chloride 102 mmol/L (96-108); Creatinine Clr Calc Pharmacy 57.8; Estimated Glomerular Filt Rate > 60; Glucose Random 96 mg/dL (60-115); Potassium 4.5 mmol/L (3.3-5.1); Sodium 139 mmol/L (135-145); Total Protein 7.3 g/dL (6.5-8.0)
[2022-02-23 16:01] LABS: Appearance Urine Cloudy; Color Urine Yellow; Glucose Urine UA Negative (Negative); Leukocyte Esterase Urine Negative (Negative); Nitrite Urine Negative (Negative); Specific Gravity - Urine 1.015 (1.005-1.025); Urine Blood Negative (Negative); Urine Ketones Negative (Negative); Urine Protein Negative (Neg-Trace)
[2022-02-23 16:06] VITALS: BP 145/65; PULSE 61; RESP 20; TEMP 36.6; O2SAT 98
== END 2022-02-23 16:50 | disposition home or self-care (01) ==
PROVIDERS: Emergency Provider Student in an Organized Health Care Education/Training Program; PCP Internal Medicine
DX: R35.0 Frequency of micturition (principal); E78.5 Hyperlipidemia, unspecified; I10 Essential (primary) hypertension; Z85.46 Personal history of malignant neoplasm of prostate; Z79.02 Long term (current) use of antithrombotics/antiplatelets; Z79.82 Long term (current) use of aspirin; Z79.899 Other long term (current) drug therapy
CPT/HCPCS: 36415; 51798; 71046; 80053; 81003; 82803; 85025; 99284

== ENCOUNTER 2022-03-09 15:46 | Emergency (ER) | payer OTHER, SELFPAY ==
--- NOTE | ~2022-03-09 | XR_ITS ---
EXAMINATION: XR CHEST CLINICAL INFORMATION: Medical clearance. COMPARISON: Chest x-ray 02/23/2022 TECHNIQUE: Frontal view of the chest was obtained. FINDINGS: Calcified granuloma the right lung base. No acute change of the chest. Lungs normally aerated. No pulmonary vascular congestion. No pleural effusion. The heart size is normal. The cardiac and mediastinal contours are normal. No acute osseous abnormality. XR/XR chest 1V IMPRESSION: Unremarkable examination.
--- NOTE | ~2022-03-09 | CT_ITS ---
EXAMINATION: CT HEAD WITHOUT CONTRAST CLINICAL INFORMATION: Medical clearance. COMPARISON: CT head 07/08/2020. TECHNIQUE: Contiguous axial imaging was performed from the skull base to vertex without intravenous administration of contrast. This CT examination was performed using dose optimization techniques as appropriate, variously including the following: *Automated exposure control *Adjustment of mA and/or kV according to patient size (this includes techniques or standardized protocols for targeted exams where dose is matched to indication/reason for exam; i.e. extremities or head) *Use of iterative reconstruction technique DLP: 705 mGy-cm FINDINGS: There is no evidence of acute intracranial hemorrhage or edematous territorial infarction. A few foci of hypoattenuation in the periventricular and deep white matter are consistent with mild microangiopathy. Noonan-white matter differentiation is preserved. Subtle mineralization of the basal ganglia. Proportional prominence of the ventricles and sulcal spaces. No evidence for obstructive hydrocephalus. No abnormal mass effect or midline shift. No extra-axial fluid collections. No acute soft tissue or osseous abnormalities. Partial opacification of ethmoid air cells. Prominent mucous cyst retention cyst versus polyp in the right posterior nasal passage (5:227). Bilateral lens extraction. CT/CT head/brain wo IV con IMPRESSION: 1. No acute intracranial abnormality. 2. 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 3. Prominent mucus retention cyst versus polyp in the right posterior nasal passage, correlate with direct visualization.
[2022-03-09 17:40] VITALS: BP 149/62; PULSE 59; RESP 16; TEMP 37.1; O2SAT 98; BMI 30.5
--- NOTE | 2022-03-09 17:43 | ECG_ITS ---
Test Reason : HYPERTENSION Blood Pressure : / mmHG Vent. Rate : 054 BPM Atrial Rate : 054 BPM P-R Int : 138 ms QRS Dur : 090 ms QT Int : 412 ms P-R-T Axes : 040 065 081 degrees QTc Int : 390 ms Sinus bradycardia with sinus arrhythmia Nonspecific ST abnormality Abnormal ECG When compared with ECG of 17-OCT-2021 20:24, No significant change was found Referred By: Tahira Meadows Electronically Signed By:CLAYTON LATHAM MD
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
[2022-03-09] MEDS: Albuterol Sulfate 90 MCG 8 GM INHALER 2 PUFF INHALE ×2 (18:33→22:25)
[2022-03-09 18:51] LABS: MANUAL DIFF FLAG NO
[2022-03-09 19:09] LABS: Basophils Absolute Auto 0.1 X10*3/uL (0.0-0.2); Basophils Percent Auto 0.8 % (0-2); Eosinophils Absolute Auto 0.6 X10*3/uL (0.0-0.4); Eosinophils Percent Auto 6.1 % (0-4); Hematocrit 41.8 % (42.0-52.0); Hemoglobin 14.7 g/dl (14.0-18.0); Imm Gran Abs Auto 0.02 X10*3/uL (0.00-0.03); Imm Gran Pct Auto 0.2 % (0.0-0.4); Lymphocytes Absolute Auto 2.4 X10*3/uL (1.2-4.9); Lymphocytes Percent Auto 26.1 % (20-40); Mean Corpuscular HGB Conc 35.2 g/dl (31.0-36.0); Mean Corpuscular Hemoglobin 30.5 pg (27.0-33.0); Mean Corpuscular Volume 86.7 fL (80.0-98.0); Mean Platelet Volume 10.4 fL (9.4-12.4); Monocytes Percent Auto 10.7 % (2-11); Neutrophils Absolute Auto 5.1 x10*3/uL (2.0-8.3); Neutrophils Percent Auto 56.1 % (45-73); Platelet Count 287 X10*3/uL (160-400); Red Blood Count 4.82 X10*6/uL (4.60-5.80); Red Cell Distribution Width 12.8 % (11.0-16.0); White Blood Count 9.2 X10*3/uL (4.8-10.8)
[2022-03-09 19:11] LABS: COVID-19 Test Negative (Negative); IDNOW Serial# BCCEAD1C
[2022-03-09 19:16] LABS: B Type Natriuretic Peptide 48 pg/mL (<100)
[2022-03-09 19:17] LABS: Alanine Aminotransferase 18 U/L (0-40); Albumin Level 4.1 g/dL (3.5-5.0); Alkaline Phosphatase 97 U/L (39-117); Anion Gap 14 (12-20); Aspartate Amino Transferase 25 U/L (5-37); Bilirubin Total 0.6 mg/dL (0.0-1.0); Blood Urea Nitrogen 16 mg/dL (9-16); Calcium 9.4 mg/dL (8.4-10.2); Carbon Dioxide 25 mmol/L (22-29); Chloride 102 mmol/L (96-108); Creatinine Clr Calc Pharmacy 69.8; Estimated Glomerular Filt Rate > 60; Glucose Random 109 mg/dL (60-115); Potassium 4.2 mmol/L (3.3-5.1); Sodium 137 mmol/L (135-145); Total Protein 7.4 g/dL (6.5-8.0)
[2022-03-09 19:22] LABS: Bilirubin Direct 0.3 mg/dL (0.0-0.5)
[2022-03-09 19:44] LABS: Lipase 15 U/L (8-78)
[2022-03-09 20:34] VITALS: BP 156/69; PULSE 53; RESP 18; TEMP 36.7; O2SAT 97
[2022-03-09 21:26] VITALS: BP 171/68; PULSE 66; RESP 16; O2SAT 98
--- NOTE | 2022-03-09 21:48 | ED.GENADULT ---
HPI - General Adult General Chief complaint: General Medical Stated complaint: High blood pressure Time Seen by Provider: 03/09/22 21:23 Source: patient and family Mode of arrival: ambulatory Limitations: no limitations History of Present Illness HPI narrative: Patient comes to the emergency room accompanied by his son-in-law. According to the patient who is Nepalese-speaking only, he is here for blood pressure issues. Patient states that he has no chest pain no shortness of breath, is compliant with this medication, takes amlodipine 5 mg daily. However, the son-in-law is requesting that we speak in Belarusian so that the patient cannot understand. The son-in-law is requesting to have the patient possibly placed. 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 However, the patient has not been formally diagnosed with dementia, but is starting to show signs. Patient tries to leave the home frequently. Also, patient tends to become angry and aggressive which this is fairly recent for the patient. Patient's OIL AND GAS RECRUITER has threatened to quit due to the above-mentioned. Patient's son in law states that the patient's daughter who is the healthcare proxy, once the patient placed for his own safety. It has not had any medical problems. Patient went to see his primary care physician today, the situation was explained to the PCP, they sent the patient to the emergency room for further evaluation and possible placement Related Data Home Medications Medication Instructions Recorded Confirmed acetaminophen 650 mg 2 tab PO Q8H PRN Pain 10/18/21 10/18/21 tablet,extended release albuterol sulfate 2.5 mg/3 mL 1 amp inhalation Q6H PRN wheezing 10/18/21 10/18/21 (0.083 %) solution for nebulization albuterol sulfate 90 mcg/actuation 2 puff PO Q4-6H PRN Allergic 10/18/21 10/18/21 aerosol inhaler (Ventolin HFA) Reaction amlodipine 5 mg tablet 1 tab PO DAILY 10/18/21 10/18/21 aspirin 81 mg tablet,delayed 1 tab PO DAILY 10/18/21 10/18/21 release atorvastatin 20 mg tablet 1 tab PO DAILY 10/18/21 10/18/21 celecoxib 200 mg capsule 1 cap PO DAILY PRN Pain 10/18/21 10/18/21 cholecalciferol (vitamin D3) 25 1 cap PO DAILY 10/18/21 10/18/21 mcg (1,000 unit) capsule (Vitamin D3) cyclobenzaprine 10 mg tablet 1 tab PO Q8H PRN muscle spasm 10/18/21 10/18/21 fluticasone propionate 220 1 puff PO BID 10/18/21 10/18/21 mcg/actuation HFA aerosol inhaler (Flovent HFA) fluticasone propionate 50 2 spray intranasal DAILY 10/18/21 10/18/21 mcg/actuation nasal spray,suspension hydrochlorothiazide 12.5 mg tablet 1 tab PO DAILY 10/18/21 10/18/21 ipratropium 20 mcg-albuterol 100 1 puff PO QID 10/18/21 10/18/21 mcg/actuation mist for inhalation (Combivent Respimat) montelukast 10 mg tablet 1 tab PO QPM 10/18/21 10/18/21 naproxen 500 mg tablet 1 tab PO BID PRN pain 10/18/21 10/18/21 Previous Rx's Medication Instructions Recorded prednisone 20 mg tablet 40 mg PO DAILY #8 tabs 10/19/21 Allergies Allergy/AdvReac Type Severity Reaction Status Date / Time No Known Allergies Allergy Unknown UNKNOWN Verified 09/16/21 20:25 [NO KNOWN ALLERGIES] Review of Systems Review of Systems: Constitutional : No Weight loss, No Fever, No Chills, No Night Sweats, No Fatigue, No Malaise ENT/Mouth : No Hearing loss, No Ear Pain, No Nasal Congestion, No Sinus Pain, No Hoarseness, No sore throat, No Rhinorrhea, No Swallowing Difficulty Eyes: No Eye Pain, No Swelling, No Redness, No Foreign Body, No Discharge, No Vision Changes Cardiovascular : No Chest Pain, No SOB, No Dyspnea on Exertion, No Orthopnea, No Edema, No Palpitations Respiratory : No Cough, No Sputum, No Wheezing, No Smoke Exposure, No Dyspnea Gastrointestinal : No Nausea, No Vomiting, No Diarrhea, No Constipation, No abdominal Pain, No Hematochezia, No Melena Genitourinary : no irregular bleeding, No Dysuria, No Urinary Frequency, No Hematuria, No Urinary Incontinence, No Urgency, No Flank Pain, No Urinary Flow Changes, No Hesitancy Musculoskeletal : No joint pain, No Myalgias, No Joint Swelling Skin : No Skin Lesions, No rash Neuro : No Weakness, No Numbness, No Paresthesias, No Loss of Consciousness, No Dizziness, No Headache Psych : No Anxiety/Panic, No Depression, No SI/HI/AH/VH, No Social Issues, Heme/Lymph: No Bruising, No Bleeding,No Lymphadenopathy Endocrine : No Polyuria, No Polydipsia, No Temperature Intolerance [facility] Past Medical History Medical History Allergic rhinitis Anasarca Asthma Bilateral primary osteoarthritis of knee COPD (chronic obstructive pulmonary disease) COPD (chronic obstructive pulmonary disease) COVID-19 High cholesterol Hyperlipidemia Hypertension Prostate CA Varicose veins of right lower extremity with inflammation Surgical History No pertinent past surgical history Family History Family History Other No family history of coronary artery disease Social History Social History Household Members: None Housing: Condominium Do you presently have visiting nurse or other home services: Yes (meghna - dtr and son are OIL AND GAS RECRUITER's) Alcohol intake: former Patient Tobacco Use Status: Never used Tobacco Second Hand Smoke Exposure: No Advance Directives: Yes Advance Directives on File: Yes Advance Directives Date on File: 07/08/20 service: No Current occupational status: retired and disabled Current occupation: right handed Physical Exam ED Vital Signs: Vital Signs - 24 hr 03/09/22 17:40 03/09/22 20:34 03/09/22 21:26 Temperature 98.8 F 98.0 F Pulse Rate 59 53 66 Respiratory Rate 16 18 16 Blood Pressure 149/62 H 156/69 H 171/68 H Pulse Oximetry 98 97 98 Oxygen Delivery Method Room Air Room Air Room Air BMI result Body Mass Index 30.5 Const Other: Appearance: Alert. Oriented X3. No acute distress. Well-appearing Eyes: Pupils equal, round and reactive to light. ENT: Pharynx normal. Neck: Normal inspection. Neck supple. No lymph nodes noted. No crepitus CVS: Normal heart rate and rhythm. Pulses normal. Normal S1 and S2 Respiratory: No respiratory distress. Breath sounds normal. No Wheezing. No rales Abdomen: Soft and nontender. No rigidity. No distention. Skin: Skin warm and dry. Normal skin color. Normal skin turgor. Extremities: No lower extremity edema. No Lacerations. No Rash Neuro: Oriented X 3. No motor deficit. No sensory deficit. Moving all extremities. No slurred speech. CN 2 through 12 grossly intact Psych: calm, cooperative, normal affect Course Course Course Narrative: Medically, patient has no significant abnormalities. Patient's blood pressure is elevated 171/68, patient's amlodipine 5 mg was given to him. Urinalysis pending. Unfortunately, the patient is not aware yet that his family wants him placed. The patient's son-in-law says that they will speak to him in the morning Patient requesting an albuterol pump I discussed the above-mentioned with case management, case management consult and physical therapy consult are pending. If the family and healthcare proxy want to go ahead and place the patient, seems that it would be easier to go to short-term rehab 1st and then place him from there. So far here in the emergency room, patient has been calm, cooperative. Case management and physical therapy consult pending. Physician observation started at 21:55 Medications Administered Discontinued Medications Generic Name Dose Route Start Last Admin Trade Name Freq PRN Reason Stop Dose Admin Albuterol Sulfate 2 puff 03/09/22 18:29 03/09/22 18:33 Albuterol Sulfate 90 Mcg 8 Gm Inhaler INHALE 03/09/22 18:30 2 puff ONCE ONE Administration Medical Decision Making Lab Data Result diagrams: 03/09/22 18:37 03/09/22 18:37 Labs: Lab Results 03/09/22 03/09/22 03/09/22 Range/Units 18:37 18:37 18:37 WBC 9.2 (4.8-10.8) X10*3/uL RBC 4.82 (4.60-5.80) X10*6/uL Hgb 14.7 (14.0-18.0) g/dl Hct 41.8 L (42.0-52.0) % MCV 86.7 (80.0-98.0) fL MCH 30.5 (27.0-33.0) pg MCHC 35.2 (31.0-36.0) g/dl RDW 12.8 (11.0-16.0) % Plt Count 287 (160-400) X10*3/uL MPV 10.4 (9.4-12.4) fL Immature Gran % (Auto) 0.2 (0.0-0.4) % Neut % (Auto) 56.1 (45-73) % Lymph % (Auto) 26.1 (20-40) % Freeborn % (Auto) 10.7 (2-11) % Eos % (Auto) 6.1 H (0-4) % Baso % (Auto) 0.8 (0-2) % Lymph # (Auto) 2.4 (1.2-4.9) X10*3/uL [place] # (Auto) 1.0 (0.1-1.2) X10*3/uL Eos # (Auto) 0.6 H (0.0-0.4) X10*3/uL Baso # (Auto) 0.1 (0.0-0.2) X10*3/uL Abs Immat Gran (auto) 0.02 (0.00-0.03) X10*3/uL Absolute Neuts (auto) 5.1 (2.0-8.3) x10*3/uL Absolute Nucleated RBC 0.000 (0.0-0.012) X10*3/uL Nucleated RBC % (auto) 0.0 (0.0-0.2) /100WBC Sodium 137 (135-145) mmol/L Potassium 4.2 (3.3-5.1) mmol/L Chloride 102 (96-108) mmol/L Carbon Dioxide 25 (22-29) mmol/L Anion Gap 14 (12-20) BUN 16 (9-16) mg/dL Creatinine 0.88 (0.5-1.4) mg/dL Estim Creat Clear Calc 69.8 Estimated GFR > 60 Random Glucose 109 (60-115) mg/dL Calcium 9.4 (8.4-10.2) mg/dL Total Bilirubin 0.6 (0.0-1.0) mg/dL Direct Bilirubin 0.3 (0.0-0.5) mg/dL AST 25 (5-37) U/L ALT 18 (0-40) U/L Alkaline Phosphatase 97 (39-117) U/L B-Natriuretic Peptide 48 (<100) pg/mL Total Protein 7.4 (6.5-8.0) g/dL Albumin 4.1 (3.5-5.0) g/dL Lipase 15 (8-78) U/L COVID-19 ([facility]) (Negative) COVID-19 Clin Com 03/09/22 Range/Units 18:37 WBC (4.8-10.8) X10*3/uL RBC (4.60-5.80) X10*6/uL Hgb (14.0-18.0) g/dl Hct (42.0-52.0) % MCV (80.0-98.0) fL MCH (27.0-33.0) pg MCHC (31.0-36.0) g/dl RDW (11.0-16.0) % Plt Count (160-400) X10*3/uL MPV (9.4-12.4) fL Immature Gran % (Auto) (0.0-0.4) % Neut % (Auto) (45-73) % Lymph % (Auto) (20-40) % Freeborn % (Auto) (2-11) % Eos % (Auto) (0-4) % Baso % (Auto) (0-2) % Lymph # (Auto) (1.2-4.9) X10*3/uL Freeborn # (Auto) (0.1-1.2) X10*3/uL Eos # (Auto) (0.0-0.4) X10*3/uL Baso # (Auto) (0.0-0.2) X10*3/uL Abs Immat Gran (auto) (0.00-0.03) X10*3/uL Absolute Neuts (auto) (2.0-8.3) x10*3/uL Absolute Nucleated RBC (0.0-0.012) X10*3/uL Nucleated RBC % (auto) (0.0-0.2) /100WBC Sodium (135-145) mmol/L Potassium (3.3-5.1) mmol/L Chloride (96-108) mmol/L Carbon Dioxide (22-29) mmol/L Anion Gap (12-20) BUN (9-16) mg/dL Creatinine (0.5-1.4) mg/dL Estim Creat Clear Calc Estimated GFR Random Glucose (60-115) mg/dL Calcium (8.4-10.2) mg/dL Total Bilirubin (0.0-1.0) mg/dL Direct Bilirubin (0.0-0.5) mg/dL AST (5-37) U/L ALT (0-40) U/L Alkaline Phosphatase (39-117) U/L B-Natriuretic Peptide (<100) pg/mL Total Protein (6.5-8.0) g/dL Albumin (3.5-5.0) g/dL Lipase (8-78) U/L COVID-19 ([facility]) Negative (Negative) COVID-19 Clin Com See Note Discharge Plan Discharge Clinical Impression: Aggression Patient Disposition: Still a Patient Prescriptions: No Action celecoxib 200 mg capsule 1 cap PO DAILY PRN (Reason: Pain) cyclobenzaprine 10 mg tablet 1 tab PO Q8H PRN (Reason: muscle spasm) atorvastatin 20 mg tablet 1 tab PO DAILY albuterol sulfate 2.5 mg /3 mL (0.083 %) solution for nebulization 1 amp inhalation Q6H PRN (Reason: wheezing) amlodipine 5 mg tablet 1 tab PO DAILY aspirin 81 mg tablet,delayed release (DR/EC) 1 tab PO DAILY acetaminophen 650 mg tablet extended release 2 tab PO Q8H PRN (Reason: Pain) montelukast 10 mg tablet 1 tab PO QPM fluticasone propionate [Flovent HFA] 220 mcg/actuation HFA aerosol inhaler 1 puff PO BID albuterol sulfate [Ventolin HFA] 90 mcg/actuation HFA aerosol inhaler 2 puff PO Q4-6H PRN (Reason: Allergic Reaction) fluticasone propionate 50 mcg/actuation spray,suspension 2 spray intranasal DAILY naproxen 500 mg tablet 1 tab PO BID PRN (Reason: pain) cholecalciferol (vitamin D3) [Vitamin D3] 25 mcg (1,000 unit) capsule 1 cap PO DAILY hydrochlorothiazide 12.5 mg tablet 1 tab PO DAILY Combivent Respimat 20-100 mcg/actuation mist 1 puff PO QID prednisone 20 mg tablet 40 mg PO DAILY Qty: 8 0RF
[2022-03-09] MEDS: amLODIPine Besylate 5 MG TABLET PO (21:52)
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
--- NOTE | 2022-03-09 23:41 | PC.NURSE ---
Pt resting comfortably on stretcher. This RN provided pt with [place] sandwich, a cheese stick and apple juice
[2022-03-09 23:55] VITALS: BP 146/60; PULSE 69; RESP 16; TEMP 37.1; O2SAT 97
[2022-03-10 03:40] VITALS: BP 146/57; PULSE 66; RESP 16; TEMP 36.8; O2SAT 97
[2022-03-10 03:55] LABS: Appearance Urine Clear; Color Urine Yellow; Glucose Urine UA Negative (Negative); Leukocyte Esterase Urine Negative (Negative); Nitrite Urine Negative (Negative); PH 6.5 (5.0-9.0); Urine Blood Negative (Negative); Urine Ketones Negative (Negative); Urine Protein Negative (Neg-Trace)
--- NOTE | 2022-03-10 04:01 | PC.NURSE ---
this rn observed pt sleeping quietly at this time
[2022-03-10 07:28] VITALS: BP 174/66; PULSE 70; RESP 19; O2SAT 98
[2022-03-10] MEDS: Albuterol Sulfate 90 MCG 8 GM INHALER 2 PUFF INHALE ×3 (07:44→17:28)
[2022-03-10 07:51] VITALS: BP 142/61; O2SAT 97
[2022-03-10] MEDS: hydroCHLOROthiazide 12.5 MG TABLET PO (08:10)
[2022-03-10] MEDS: amLODIPine Besylate 5 MG TABLET PO (08:10)
[2022-03-10] MEDS: Cholecalciferol (Vitamin D3) 25 MCG TABLET PO (08:11)
[2022-03-10] MEDS: Atorvastatin Calcium 20 MG TABLET PO (08:11)
[2022-03-10] MEDS: Aspirin Enteric Coated 81 MG TABLET.DR PO (08:11)
--- NOTE | 2022-03-10 11:08 | MHC.CM.ED ---
Addendum entered by Yolanda Kaplan 03/10/22 14:30: [facility] has decided they want to watch patient for behaviors for 2 days before accepting patient. Original Note: Patient remains in ER. Physical therapy recommending / care. Family is unable to accommodate. Patient is an elopement risk. Referral broadcasted in [facility]. [facility] is able to offer a bed and is in the process of obtaining auth. Patient's daughter/HCP, Rayne aware and agreeable. Continue to monitor for d/c needs.
--- NOTE | 2022-03-10 11:52 | PC.NURSE ---
pt had soiled himself. this tech had helped clean up the pt and change linen. pt is comfortable, no signs of distress.
[2022-03-10 13:23] VITALS: BP 147/63; PULSE 69; RESP 17; TEMP 36.6; O2SAT 96
[2022-03-10 16:00] VITALS: BP 147/59; PULSE 63; RESP 16; TEMP 36.8; O2SAT 97
--- NOTE | 2022-03-10 16:10 | PC.NURSE ---
this pct assumed care of pt at 1500 ,pt vs taken ,pt clean and dry ,call oropeza within reach .
--- NOTE | 2022-03-10 16:29 | PC.NURSE ---
Leesa israel of patients BP
--- NOTE | 2022-03-10 17:52 | PC.NURSE ---
1800 ROUNDING DONE ,PT WATCHING TELEVISION ,CALL HANLEY WITHIN REACH .
[2022-03-10] MEDS: Montelukast Sodium 10 MG TABLET PO (20:47)
[2022-03-10 21:22] VITALS: BP 124/68; PULSE 64; TEMP 36.8; O2SAT 97
[2022-03-11 06:17] VITALS: BP 162/75; PULSE 70; TEMP 37; O2SAT 95
[2022-03-11 07:07] VITALS: BP 126/61; PULSE 54; RESP 16; O2SAT 95
[2022-03-11] MEDS: amLODIPine Besylate 5 MG TABLET PO (07:49)
[2022-03-11] MEDS: Atorvastatin Calcium 20 MG TABLET PO (07:49)
[2022-03-11] MEDS: Aspirin Enteric Coated 81 MG TABLET.DR PO (07:49)
[2022-03-11] MEDS: Cholecalciferol (Vitamin D3) 25 MCG TABLET PO (07:50)
[2022-03-11] MEDS: hydroCHLOROthiazide 12.5 MG TABLET PO (07:50)
[2022-03-11] MEDS: Fluticasone Propionate 250 MCG BLST.W.DEV 1 PUFF INHALE ×2 (07:50→19:37)
[2022-03-11 07:52] VITALS: PULSE 69; RESP 16; O2SAT 97
--- NOTE | 2022-03-11 08:24 | MHC.CM.ED ---
Patient remains in ER. Clinical updates sent to [facility]. Continue to monitor for d/c needs.
--- NOTE | 2022-03-11 09:22 | PC.NURSE ---
awoke easily to voice this am, slept well per previous shift rn. ate breakfast and took scheduled home medications. awaiting auth from insurance for offered snf bed for ltc. resting comfortably in stretcher, wctm for dc needs.
[2022-03-11 09:40] VITALS: BP 130/51; PULSE 64; RESP 16; O2SAT 95
[2022-03-11] MEDS: Docusate Sodium 100 MG CAPSULE PO (11:03)
[2022-03-11 19:38] VITALS: PULSE 64; RESP 16; O2SAT 96
[2022-03-11] MEDS: Montelukast Sodium 10 MG TABLET PO (21:59)
[2022-03-12] VITALS (7 sets, daily range): BP systolic 143–162; BP diastolic 63–73; PULSE 63–68; RESP 12–18; TEMP 36.6–36.9; O2SAT 95–98
[2022-03-12] MEDS: Fluticasone Propionate 250 MCG BLST.W.DEV 1 PUFF INHALE ×2 (08:58→21:59)
[2022-03-12] MEDS: amLODIPine Besylate 5 MG TABLET PO (09:37)
[2022-03-12] MEDS: Aspirin Enteric Coated 81 MG TABLET.DR PO (09:37)
[2022-03-12] MEDS: Atorvastatin Calcium 20 MG TABLET PO (09:37)
[2022-03-12] MEDS: hydroCHLOROthiazide 12.5 MG TABLET PO (09:37)
[2022-03-12] MEDS: Cholecalciferol (Vitamin D3) 25 MCG TABLET PO (09:37)
--- NOTE | 2022-03-12 10:08 | PC.NURSE ---
a/o x 4 no sob/trinidad noted speaks in full sentences (financial accounting analyst at bedside). lungs - slightly diminished. heart sounds regular. abd soft and non-tender. bs + x 4 quads. no edema noted.
--- NOTE | 2022-03-12 12:52 | MHC.CM.ED ---
Patient remains in ER. [facility] is unable to offer a bed. Referral broadcasted in [place] to all facilities within the [facility] that are contracted with patient's insurance. 118 referrals made. Continue to monitor for d/c needs.
[2022-03-12] MEDS: Montelukast Sodium 10 MG TABLET PO (21:33)
[2022-03-13] VITALS (8 sets, daily range): BP systolic 135–143; BP diastolic 60–63; PULSE 61–70; RESP 16–20; TEMP 36.5–37; O2SAT 94–97
[2022-03-13] MEDS: amLODIPine Besylate 5 MG TABLET PO (08:07)
[2022-03-13] MEDS: Aspirin Enteric Coated 81 MG TABLET.DR PO (08:07)
[2022-03-13] MEDS: Cholecalciferol (Vitamin D3) 25 MCG TABLET PO (08:07)
[2022-03-13] MEDS: Atorvastatin Calcium 20 MG TABLET PO (08:07)
[2022-03-13] MEDS: hydroCHLOROthiazide 12.5 MG TABLET PO (08:08)
[2022-03-13] MEDS: Fluticasone Propionate 250 MCG BLST.W.DEV 1 PUFF INHALE ×2 (08:18→21:31)
[2022-03-13] MEDS: Albuterol/Iprat 2.5/0.5MG 3 ML AMPUL.NEB INHALE ×2 (11:55→16:36)
--- NOTE | 2022-03-13 11:58 | PC.NURSE ---
Addendum entered by Donny Casanova 03/13/22 13:07: Awaiting pharmacy to bring medication. Patient stated he does not want the flonase and will not take it Original Note: Pharmacy called for flonase
[2022-03-13] MEDS: Montelukast Sodium 10 MG TABLET PO (20:43)
--- NOTE | 2022-03-13 22:04 | PC.NURSE ---
pt repositioned into hospital bed.
[2022-03-14] VITALS (7 sets, daily range): BP systolic 130–154; BP diastolic 58–62; PULSE 59–74; RESP 12–18; TEMP 36.4–36.6; O2SAT 94–97
[2022-03-14] MEDS: Albuterol/Iprat 2.5/0.5MG 3 ML AMPUL.NEB INHALE ×3 (00:15→12:05)
[2022-03-14] MEDS: Atorvastatin Calcium 20 MG TABLET PO (10:23)
[2022-03-14] MEDS: Cholecalciferol (Vitamin D3) 25 MCG TABLET PO (10:23)
[2022-03-14] MEDS: amLODIPine Besylate 5 MG TABLET PO (10:23)
[2022-03-14] MEDS: Aspirin Enteric Coated 81 MG TABLET.DR PO (10:23)
[2022-03-14] MEDS: hydroCHLOROthiazide 12.5 MG TABLET PO (10:23)
[2022-03-14] MEDS: Fluticasone Propionate 250 MCG BLST.W.DEV 1 PUFF INHALE ×2 (10:51→20:18)
--- NOTE | 2022-03-14 11:32 | PC.NURSE ---
reported obtained from Rose GANN at this. Pt in bed resting, vitals are stable. Pending case management.
--- NOTE | 2022-03-14 11:46 | PC.NURSE ---
CALLED [facility] RELATED TO FLONASE. PENDING BEING BROUGHT UP
[2022-03-14] MEDS: Fluticasone Propionate Nasal 16 GM SPRAY 2 SPRAY NOSTRIL-B (12:14)
--- NOTE | 2022-03-14 15:32 | PC.NURSE ---
assumed care of pt at 1500, pt resting comfortably, RR even and unlabored.
[2022-03-14] MEDS: Montelukast Sodium 10 MG TABLET PO (21:12)
--- NOTE | 2022-03-14 21:16 | PC.NURSE ---
Administered montelukast per JUN.
[2022-03-15] VITALS (8 sets, daily range): BP systolic 124–165; BP diastolic 52–71; PULSE 52–85; RESP 10–18; TEMP 36.2–36.6; O2SAT 95–97
--- NOTE | 2022-03-15 04:03 | PC.NURSE ---
Assumed care of patient. Patient is sleeping. No respiratory distress.
[2022-03-15] MEDS: Albuterol/Iprat 2.5/0.5MG 3 ML AMPUL.NEB INHALE ×3 (07:53→19:40)
[2022-03-15] MEDS: Fluticasone Propionate 250 MCG BLST.W.DEV 1 PUFF INHALE ×2 (08:00→19:40)
[2022-03-15] MEDS: Aspirin Enteric Coated 81 MG TABLET.DR PO (09:15)
[2022-03-15] MEDS: Atorvastatin Calcium 20 MG TABLET PO (09:15)
[2022-03-15] MEDS: hydroCHLOROthiazide 12.5 MG TABLET PO (09:16)
[2022-03-15] MEDS: Cholecalciferol (Vitamin D3) 25 MCG TABLET PO (09:16)
[2022-03-15] MEDS: amLODIPine Besylate 5 MG TABLET PO (09:16)
[2022-03-15] MEDS: Fluticasone Propionate Nasal 16 GM SPRAY 2 SPRAY NOSTRIL-B (09:16)
--- NOTE | 2022-03-15 14:20 | MHC.CM.ED ---
Patient remains in ER. Referral has been broadcasted throughout the entire state [facility] to all facilities contracted with [facility]. Alexandra Hwang has escalated case with [employer]. Continue to monitor for d/c needs.
--- NOTE | 2022-03-15 15:25 | PC.NURSE ---
PT IS WAITING FOR APPROVAL TO A SNF, CASEMANAGEMENT INVOLVED.
[2022-03-15] MEDS: Montelukast Sodium 10 MG TABLET PO (21:19)
--- NOTE | 2022-03-15 21:57 | PC.NURSE ---
pt brought over to overflow bed 11 from ED bed 16. pt cleaned up, linens CHANGED, WARM BLANKETS PROVIDED BY PCT. PT RESTING COMFORTABLY. WILL CONTINUE TO MONITOR.
--- NOTE | 2022-03-15 22:08 | PC.NURSE ---
PT soiled with urine when he arrived from the ED. Pericare given. Pt put on [place] Morales for incontinence of Urine . Pt bed linen and gown changed. Pt given warm blankets and tv remote. Call oropeza placed in reach and bed in lowest position
--- NOTE | 2022-03-16 03:30 | PC.NURSE ---
Pt [place] Removed. PT Given rogers care and new [place] Applied. Pt made aware to be mindful of [place] cath when turning side to side so it doesn't come off. Pt given call oropeza and warm blanket
--- NOTE | 2022-03-16 03:53 | PC.NURSE ---
pt sleeping comfortably on stretcher, respirations even and unlabored, no apparent distress
[2022-03-16 06:58] VITALS: BP 148/66; PULSE 76; RESP 17; TEMP 36.6; O2SAT 95
--- NOTE | 2022-03-16 06:59 | PC.NURSE ---
pt [place] fell off. Pt given rogers care and ketan Vazquez applied. Pt gown changed. Pt given warm blankets and call oropeza placed in reach
[2022-03-16] MEDS: Albuterol/Iprat 2.5/0.5MG 3 ML AMPUL.NEB INHALE ×2 (08:37→19:50)
[2022-03-16] MEDS: Fluticasone Propionate 250 MCG BLST.W.DEV 1 PUFF INHALE ×2 (08:37→19:49)
[2022-03-16 08:40] VITALS: PULSE 67; RESP 16; O2SAT 98
--- NOTE | 2022-03-16 10:47 | PC.NURSE ---
9 am meds given late as many of the meds were not loaded into the PICS.
--- NOTE | 2022-03-16 13:37 | MHC.CM.ED ---
Patient remains in ER. No bed offers made at this time. Received telephone call from Maya at [facility] requesting update. Placement issues explained. Continue to monitor for d/c needs.
[2022-03-16 14:35] VITALS: BP 140/57; PULSE 67; RESP 14; TEMP 35.9; O2SAT 98
[2022-03-16] MEDS: amLODIPine Besylate 5 MG TABLET PO (14:51)
[2022-03-16] MEDS: Aspirin Enteric Coated 81 MG TABLET.DR PO (14:52)
[2022-03-16] MEDS: Cholecalciferol (Vitamin D3) 25 MCG TABLET PO (14:52)
--- NOTE | 2022-03-16 16:37 | PC.NURSE ---
per [facility] BRUSH LOADER AND HANDLE ATTACHER, we may use patients Triamcinolone 1 percent until pharmacy gets and fills the order. scrotum is slightly red and c/o itchy.
[2022-03-16 19:50] VITALS: PULSE 72; RESP 14; O2SAT 97
[2022-03-16 20:30] VITALS: BP 154/87; PULSE 70; RESP 18; TEMP 36.6; O2SAT 97
[2022-03-16] MEDS: Montelukast Sodium 10 MG TABLET PO (20:56)
[2022-03-16] MEDS: Triamcinolone Acet 0.1 % Cream 15 GM TUBE 1 APPL TOPICAL (20:56)
--- NOTE | 2022-03-16 21:03 | PC.NURSE ---
Patient is alert and oriented x3, VSS. Lungs are clear in upper fitch, diminished in bases. Patient denies any pain at present. Bedtime medications administered per JUN, Triamcinolone cream applied to mild erythema/itchy areas on scrotum.
[2022-03-17] VITALS (7 sets, daily range): BP systolic 130–151; BP diastolic 61–68; PULSE 64–74; RESP 13–18; TEMP 36.3–36.7; O2SAT 95–98
[2022-03-17] MEDS: amLODIPine Besylate 5 MG TABLET PO (09:39)
[2022-03-17] MEDS: Atorvastatin Calcium 20 MG TABLET PO (09:39)
[2022-03-17] MEDS: Aspirin Enteric Coated 81 MG TABLET.DR PO (09:39)
[2022-03-17] MEDS: Cholecalciferol (Vitamin D3) 25 MCG TABLET PO (09:39)
[2022-03-17] MEDS: hydroCHLOROthiazide 12.5 MG TABLET PO (09:39)
[2022-03-17] MEDS: Triamcinolone Acet 0.1 % Cream 15 GM TUBE 1 APPL TOPICAL (09:42)
[2022-03-17] MEDS: Fluticasone Propionate 250 MCG BLST.W.DEV 1 PUFF INHALE ×2 (09:43→20:13)
[2022-03-17] MEDS: Fluticasone Propionate Nasal 16 GM SPRAY 2 SPRAY NOSTRIL-B (09:44)
--- NOTE | 2022-03-17 10:00 | PC.NURSE ---
pt a/o x 4 (chair finisher at bedside) speaks in full sentences. lungs - diminished. heart sounds regular. abd soft non-tender, bx + x 4 quads. no edema noted. pt c/o rash to groin area, cream applied. pt had rogers-care and is now sitting up in a recliner. pt aware of plan of care.
[2022-03-17] MEDS: Acetaminophen 325 MG TABLET 650 MG PO ×2 (10:26→23:38)
[2022-03-17] MEDS: Albuterol/Iprat 2.5/0.5MG 3 ML AMPUL.NEB INHALE (14:21)
[2022-03-17] MEDS: Montelukast Sodium 10 MG TABLET PO (20:09)
[2022-03-17] MEDS: Albuterol Sulfate (0.083%) 2.5 MG/3 ML VIAL.NEB INHALE (21:37)
[2022-03-18] VITALS (9 sets, daily range): BP systolic 130–150; BP diastolic 61–72; PULSE 52–67; RESP 17–18; TEMP 36.6–36.8; O2SAT 95–97
[2022-03-18] MEDS: Albuterol/Iprat 2.5/0.5MG 3 ML AMPUL.NEB INHALE ×4 (00:31→19:10)
--- NOTE | 2022-03-18 03:20 | PC.NURSE ---
Received RN to RN report from Ac GANN. Allowed to sleep. Respirations even/unlabored. This RN assumes care of patient and will continue to monitor.
--- NOTE | 2022-03-18 05:07 | PC.NURSE ---
Patient requested and given warm blanket. Denies other needs at this time.
--- NOTE | 2022-03-18 05:16 | PC.NURSE ---
Pt soiled with Urine. Pt given pericare. Bed pads changed and Pt given new hospital gown. Pt given warm blankets and call oropeza placed in reach
--- NOTE | 2022-03-18 06:36 | PC.NURSE ---
Respiratory Therapist (Guerrero) at bedside administering updraft as ordered. Pt awake, calm/cooperative.
[2022-03-18] MEDS: hydroCHLOROthiazide 12.5 MG TABLET PO (09:02)
[2022-03-18] MEDS: Aspirin Enteric Coated 81 MG TABLET.DR PO (09:03)
[2022-03-18] MEDS: amLODIPine Besylate 5 MG TABLET PO (09:03)
[2022-03-18] MEDS: Atorvastatin Calcium 20 MG TABLET PO (09:03)
[2022-03-18] MEDS: Cholecalciferol (Vitamin D3) 25 MCG TABLET PO (09:04)
[2022-03-18] MEDS: Fluticasone Propionate 250 MCG BLST.W.DEV 1 PUFF INHALE ×2 (09:05→19:19)
[2022-03-18] MEDS: Triamcinolone Acet 0.1 % Cream 15 GM TUBE 1 APPL TOPICAL (09:14)
[2022-03-18] MEDS: Fluticasone Propionate Nasal 16 GM SPRAY 2 SPRAY NOSTRIL-B (09:14)
--- NOTE | 2022-03-18 10:22 | PC.NURSE ---
this scientific writer assumed care of this pt at 0700, pt sleeping at the time of assuming care. ambulated to bathroom using walker, denies pain, vss, meds given as documented. no complaints.
--- NOTE | 2022-03-18 14:30 | PC.NURSE ---
pt requesting to call his daughter, pt assisted with phone call by certified court/medical interpreter, per lang interpreter pt's daughter will come to visit him tomorrow morning.
--- NOTE | 2022-03-18 19:01 | PC.NURSE ---
assumed care of pt at 1900, pt resting quietly in bed, watching TV/
[2022-03-18] MEDS: Acetaminophen 325 MG TABLET 650 MG PO (20:41)
[2022-03-18] MEDS: Montelukast Sodium 10 MG TABLET PO (20:43)
--- NOTE | 2022-03-18 20:43 | PC.NURSE ---
pt resting quietly in bed, watching tv, reporting 7/10 left shoulder pain, medicated per provider order.
--- NOTE | 2022-03-18 22:12 | PC.NURSE ---
pt reporting sudden fever, pt afebrile, suggested pt remove top blanket, pt declined. steam press operator at bedside.
[2022-03-19 05:27] VITALS: BP 144/73; PULSE 98; RESP 16; TEMP 36.6; O2SAT 98
--- NOTE | 2022-03-19 05:30 | ECG_ITS ---
Test Reason : LOW HR Blood Pressure : / mmHG Vent. Rate : 054 BPM Atrial Rate : 054 BPM P-R Int : 138 ms QRS Dur : 086 ms QT Int : 422 ms P-R-T Axes : 066 068 084 degrees QTc Int : 400 ms Sinus bradycardia with marked sinus arrhythmia Otherwise normal ECG When compared with ECG of 09-MAR-2022 18:38, No significant change was found Referred By: Andres Painter Electronically Signed By:CLAYTON LATHAM MD
[2022-03-19] MEDS: Albuterol/Iprat 2.5/0.5MG 3 ML AMPUL.NEB INHALE ×3 (06:06→19:54)
[2022-03-19 06:07] VITALS: PULSE 60; RESP 16; O2SAT 96
[2022-03-19 06:16] LABS: Troponin-I High Sensitivity 9.2 ng/L (<3.5-35.0)
--- NOTE | 2022-03-19 06:35 | PC.NURSE ---
Pt Bed soiled with urinal from urinal. Pt sheets and linen changed. Pt assisted in pericare . Pt given warm blankets and call oropeza placed in reach
[2022-03-19] MEDS: Aspirin Enteric Coated 81 MG TABLET.DR PO (07:52)
[2022-03-19] MEDS: hydroCHLOROthiazide 12.5 MG TABLET PO (07:52)
[2022-03-19] MEDS: amLODIPine Besylate 5 MG TABLET PO (07:52)
[2022-03-19] MEDS: Albuterol Sulfate 90 MCG 8 GM INHALER 2 PUFF INHALE (07:52)
[2022-03-19] MEDS: Atorvastatin Calcium 20 MG TABLET PO (07:52)
[2022-03-19] MEDS: Cholecalciferol (Vitamin D3) 25 MCG TABLET PO (07:52)
[2022-03-19] MEDS: Fluticasone Propionate Nasal 16 GM SPRAY 2 SPRAY NOSTRIL-B (07:53)
[2022-03-19] MEDS: Fluticasone Propionate 250 MCG BLST.W.DEV 1 PUFF INHALE ×3 (08:34→19:54)
--- NOTE | 2022-03-19 09:22 | PC.NURSE ---
flovent given by resp tx lucina
[2022-03-19] MEDS: Acetaminophen 325 MG TABLET 650 MG PO ×2 (10:06→20:30)
[2022-03-19 12:16] VITALS: PULSE 60; RESP 16; O2SAT 95
--- NOTE | 2022-03-19 13:23 | MHC.CM.ED ---
Patient remains in ER overflow. Met with patient's daughter, Rayne Silva, and conference interpreter. Rayne Silva will be willing to take patient home if patient is evaluated by psychiatry for medication recommendations due to aggression and insomnia from dementia and VNA can be arranged for medication administration. Psych consult has been ordered by Hue NO. T/W spoke with Dee at [facility]. She will update team and will authorize VNA for medication administration. VNA referral broadcasted in [facility]. Anticipate patient will not be ready for discharge before Tuesday. Rayne Silva aware T/W will call her Tuesday morning between 10a-11am to verify discharge plan can been completed. Rayne Silva will not be able to have patient transfer home before 4pm on Tuesday. Ignacio Bar RN and Hue NO aware. Continue to monitor for d/c needs.
--- NOTE | 2022-03-19 15:15 | PC.NURSE ---
dr tolliver here with pt and interpretter for psych eval at bedside
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
[2022-03-19 15:51] VITALS: BP 156/70; PULSE 68; RESP 17; TEMP 36.8; O2SAT 97
[2022-03-19 19:45] VITALS: BP 160/74; PULSE 65; RESP 17; TEMP 36.4; O2SAT 96
[2022-03-19 20:02] VITALS: PULSE 78; RESP 22; O2SAT 95
--- NOTE | 2022-03-19 20:14 | PC.NURSE ---
Assumed care of pt. Pt resting at the bedside in no apparent distress. Respiratory at bedside administering breathing treatment as scheduled. Pt reports muscular pain 6/10 and requesting Tylenol. Will address pain and continue to monitor.
[2022-03-19] MEDS: Montelukast Sodium 10 MG TABLET PO (20:30)
[2022-03-19] MEDS: Triamcinolone Acet 0.1 % Cream 15 GM TUBE 1 APPL TOPICAL (20:31)
--- NOTE | 2022-03-20 00:04 | PC.NURSE ---
Took over patient care around 2300. Pt Alert and oriented. Pleasant and cooperative. Turkish speaking with clear speech and makes needs known. LS-CTA. No cough or sob. BS+. PP+, no edema. Pt voiding in urinal at bedside with clear yellow urine. No c/o pain/discomfort. Call oropeza within reach. Will continue to monitor.
[2022-03-20 06:00] VITALS: BP 149/74; PULSE 57; RESP 20; TEMP 36.6; O2SAT 95
[2022-03-20] MEDS: Albuterol/Iprat 2.5/0.5MG 3 ML AMPUL.NEB INHALE ×2 (07:53→11:37)
[2022-03-20 07:54] VITALS: PULSE 58; RESP 19; O2SAT 96
[2022-03-20] MEDS: hydroCHLOROthiazide 12.5 MG TABLET PO (08:39)
[2022-03-20] MEDS: Atorvastatin Calcium 20 MG TABLET PO (08:39)
[2022-03-20] MEDS: Aspirin Enteric Coated 81 MG TABLET.DR PO (08:39)
[2022-03-20] MEDS: Cholecalciferol (Vitamin D3) 25 MCG TABLET PO (08:40)
[2022-03-20] MEDS: amLODIPine Besylate 5 MG TABLET PO (08:40)
[2022-03-20] MEDS: Triamcinolone Acet 0.1 % Cream 15 GM TUBE 1 APPL TOPICAL ×2 (09:52→21:05)
[2022-03-20] MEDS: Fluticasone Propionate 250 MCG BLST.W.DEV 1 PUFF INHALE ×2 (10:43→20:20)
[2022-03-20 11:38] VITALS: PULSE 60; RESP 16; O2SAT 95
[2022-03-20 18:14] VITALS: BP 148/64; PULSE 61; RESP 12; TEMP 36.8; O2SAT 97
--- NOTE | 2022-03-20 19:35 | PC.NURSE ---
Pt watching TV, no complaints at this time.
[2022-03-20] MEDS: Montelukast Sodium 10 MG TABLET PO (21:04)
[2022-03-20] MEDS: Albuterol Sulfate 90 MCG 8 GM INHALER 2 PUFF INHALE (22:22)
[2022-03-20 22:33] VITALS: PULSE 62; O2SAT 95
[2022-03-20] MEDS: Acetaminophen 325 MG TABLET 650 MG PO (22:35)
[2022-03-20 23:17] VITALS: BP 114/58; PULSE 51; RESP 16; TEMP 36.6
--- NOTE | 2022-03-21 00:28 | PC.NURSE ---
Pt sleeping at this time respirations regular.
--- NOTE | 2022-03-21 02:53 | PC.NURSE ---
Pt sleeping at this time, respirations regular.
--- NOTE | 2022-03-21 05:02 | PC.NURSE ---
Pt sleeping at this time, respirations regular.
[2022-03-21 06:42] VITALS: BP 131/51; PULSE 54; RESP 16; TEMP 36.3; O2SAT 98
--- NOTE | 2022-03-21 07:55 | PC.NURSE ---
pt eating breakfast, no distress noted. calm and watching tv in bed at this time. plan for family to take him home tomorrow.
[2022-03-21] MEDS: Cholecalciferol (Vitamin D3) 25 MCG TABLET PO (08:13)
[2022-03-21] MEDS: Aspirin Enteric Coated 81 MG TABLET.DR PO (08:13)
[2022-03-21] MEDS: Atorvastatin Calcium 20 MG TABLET PO (08:14)
[2022-03-21] MEDS: amLODIPine Besylate 5 MG TABLET PO (08:14)
[2022-03-21] MEDS: hydroCHLOROthiazide 12.5 MG TABLET PO (08:14)
[2022-03-21] MEDS: Fluticasone Propionate Nasal 16 GM SPRAY 2 SPRAY NOSTRIL-B (08:15)
[2022-03-21] MEDS: Fluticasone Propionate 250 MCG BLST.W.DEV 1 PUFF INHALE ×2 (08:15→20:07)
[2022-03-21] MEDS: Triamcinolone Acet 0.1 % Cream 15 GM TUBE 1 APPL TOPICAL ×2 (08:15→21:06)
--- NOTE | 2022-03-21 13:41 | PC.NURSE ---
pt asleep at this time. resp even and unlabored. no obvious distress noted.
[2022-03-21 20:08] VITALS: PULSE 54; RESP 16; O2SAT 95
[2022-03-21] MEDS: Montelukast Sodium 10 MG TABLET PO (21:05)
[2022-03-21 22:24] VITALS: BP 134/54; PULSE 55; RESP 20; TEMP 36.5; O2SAT 97
[2022-03-22 06:00] VITALS: BP 127/47; PULSE 54; RESP 14; TEMP 36.4; O2SAT 94
[2022-03-22] MEDS: Atorvastatin Calcium 20 MG TABLET PO (08:33)
[2022-03-22] MEDS: Triamcinolone Acet 0.1 % Cream 15 GM TUBE 1 APPL TOPICAL (08:33)
[2022-03-22] MEDS: Aspirin Enteric Coated 81 MG TABLET.DR PO (08:33)
[2022-03-22] MEDS: amLODIPine Besylate 5 MG TABLET PO (08:33)
[2022-03-22] MEDS: Cholecalciferol (Vitamin D3) 25 MCG TABLET PO (08:33)
[2022-03-22] MEDS: hydroCHLOROthiazide 12.5 MG TABLET PO (08:33)
[2022-03-22 08:34] VITALS: BP 147/60; PULSE 72; RESP 18; TEMP 36.6; O2SAT 97
[2022-03-22] MEDS: Fluticasone Propionate Nasal 16 GM SPRAY 2 SPRAY NOSTRIL-B (08:34)
--- NOTE | 2022-03-22 08:36 | PC.NURSE ---
patient awake/alert to baseline, denies pain/discomfort, pt ate 100% of breakfast, no aggressive behaviors noted upon assessment, pt medicated per order, call oropeza within reach, will continue to monitor
--- NOTE | 2022-03-22 10:30 | PC.NURSE ---
patient attempting to get oob, wanting to get dressed, pt was incontinent of urine in bed, tech at bedside assisting patient to clean up, pt aware he will discharge later this afternoon.
--- NOTE | 2022-03-22 11:22 | MHC.CM.ED ---
Addendum entered by Yolanda Kaplan 03/22/22 12:08: [facility] will accept patient. [facility] aware. Addendum entered by Yolanda Kaplan 03/22/22 11:23: Yary GANN also aware. Original Note: Patient remains in ER. Psych consult completed with medication recommendations made and ordered. T/W is still trying to secure a VNA. Spoke with pateint's daughter, Rayne Silva, via telephone at [phone] with the help of the asl interpreter. Patient's SENIOR REGULATORY AFFAIRS SPECIALIST will be at [facility] around 4pm to transport patient home. Patient and Tete NO aware. Continue to monitor for d/c needs.
[2022-03-22 15:56] VITALS: BP 193/58; PULSE 66; TEMP 36.6; O2SAT 99
[2022-03-22 16:51] VITALS: BP 139/67
--- NOTE | 2022-03-22 17:12 | MHC.CM.ED ---
Call to patient's daughter, Rayne Silva ([phone]) regarding transportation home. Per daughter, her is on route to hospital to milk pickup driver patient. PT will d/c home with CUSTOMER SUPPORT TECHNICIAN services arranged by family.
== END 2022-03-22 17:30 | disposition home or self-care (01) ==
PROVIDERS: Emergency Medicine; Internal Medicine; Emergency Provider Emergency Medicine; PCP Internal Medicine
DX: F03.911 Unspecified dementia, unspecified severity, with agitation (principal); R51.9 Headache, unspecified; R06.02 Shortness of breath; R26.81 Unsteadiness on feet; I10 Essential (primary) hypertension; Z20.822 Contact with and (suspected) exposure to COVID-19; Z79.899 Other long term (current) drug therapy
CPT/HCPCS: 36415; 70450; 71045; 80048; 80076; 81003; 83690; 83880; 84484; 85025; 87635; 93005; 94640; 97161; 99218; 99285

== ENCOUNTER 2022-04-12 12:30 | Emergency (ER) | payer OTHER, SELFPAY ==
--- NOTE | ~2022-04-12 | XR_ITS ---
EXAMINATION: XR hip LT min 2V, XR knee LT 2V CLINICAL INFORMATION: Fall 2 days ago COMPARISON: None. TECHNIQUE: AP view of the pelvis with AP and frog-leg lateral views of the left hip. AP, lateral, and oblique views of the left knee. FINDINGS: Degenerative changes of the lower lumbar spine. There may be partial sacralization of the left L5 transverse process with the sacrum. Osteoarthritis of the bilateral hips and sacroiliac joints. No displaced hip fracture seen. No fracture or dislocation of the knee. There is tricompartmental osteoarthritis moderate to severe in the medial and patellofemoral compartments. Intra-articular bodies are present. XR/XR knee LT 2V IMPRESSION: No acute osseous abnormality of the left hip or knee.
--- NOTE | ~2022-04-12 | CT_ITS ---
EXAMINATION: CT HEAD WITHOUT CONTRAST CLINICAL INFORMATION: Fall two days ago. COMPARISON: CT brain 03/09/2022. TECHNIQUE: Contiguous axial imaging was performed from the skull base to vertex without intravenous administration of contrast. This CT examination was performed using dose optimization techniques as appropriate, variously including the following: *Automated exposure control *Adjustment of mA and/or kV according to patient size (this includes techniques or standardized protocols for targeted exams where dose is matched to indication/reason for exam; i.e. extremities or head) *Use of iterative reconstruction technique DLP: 731 mGy-cm FINDINGS: There is no acute intra-axial, extra-axial bleed, masses or midline shift. There is no acute infarction evolution. There is no edema. The lateral ventricles are symmetrical but enlarged. There is diffuse periventricular hypodensity in both cerebral hemispheres without mass effect. Bone windows reveal no calvarial abnormality. Bilateral paranasal sinuses and mastoid air cells are well aerated with minimal mucoperiosteal thickening bilateral ethmoid sinuses. There is no scalp soft tissue abnormality. CT/CT head/brain wo IV con IMPRESSION: 1. No acute intracranial process seen. 2. Age-related cerebral volume loss with chronic small vessel ischemic changes. Intracranial process seen. 3. No major change compared to previous study 03/09/2022.
--- NOTE | ~2022-04-12 | XR_ITS ---
EXAMINATION: XR hip LT min 2V, XR knee LT 2V CLINICAL INFORMATION: Fall 2 days ago COMPARISON: None. TECHNIQUE: AP view of the pelvis with AP and frog-leg lateral views of the left hip. AP, lateral, and oblique views of the left knee. FINDINGS: Degenerative changes of the lower lumbar spine. There may be partial sacralization of the left L5 transverse process with the sacrum. Osteoarthritis of the bilateral hips and sacroiliac joints. No displaced hip fracture seen. No fracture or dislocation of the knee. There is tricompartmental osteoarthritis moderate to severe in the medial and patellofemoral compartments. Intra-articular bodies are present. XR/XR hip LT min 2V IMPRESSION: No acute osseous abnormality of the left hip or knee.
[2022-04-12 12:42] VITALS: BP 176/68; BP 189/76; PULSE 92; PULSE 93; RESP 17; O2SAT 98; O2SAT 99; BMI 28.1
--- NOTE | 2022-04-12 13:35 | ED.FALL ---
HPI - Fall General Chief Complaint: Fall Stated Complaint: HEALING HEAD LAC S/P FALL 2 DAYS AGO PER EMS Time Seen by Provider: 04/12/22 13:11 Source: patient Mode of arrival: ambulatory Limitations: language barrier History of Present Illness HPI Narrative: 82-year-old Georgian-speaking male with past medical history of COPD presents to the emergency department with complaints of left hip and knee pain after falling 2 days ago hitting his head. He states he was reaching for something lost his balance and hit his head on the kitchen door. He reports he did not lose consciousness. He denies any headaches, changes in vision, ringing in his ears, dizziness, or neck pain. He denies any changes in gait, numbness, weakness, tingling in BLE, or back pain. MD complaint: fall Onset (ago): day(s) (2) Fall from: standing Fall witnessed: no Place fall occurred: home Loss of consciousness: none Prolonged down time: no Symptoms prior to fall: none Location of injury: head and other (Lt hip) Location of injury - extremities: left: lower leg Severity: moderate Severity scale (1-10): 5 Quality: dull and aching Associated symptoms (after fall): denies Related Data Home Medications Medication Instructions Recorded Confirmed acetaminophen 650 mg 2 tab PO Q8H PRN Pain 10/18/21 03/10/22 tablet,extended release albuterol sulfate 2.5 mg/3 mL 1 amp inhalation Q6H PRN wheezing 10/18/21 03/10/22 (0.083 %) solution for nebulization albuterol sulfate 90 mcg/actuation 2 puff PO Q4-6H PRN Allergic 10/18/21 03/10/22 aerosol inhaler (Ventolin HFA) Reaction amlodipine 5 mg tablet 1 tab PO DAILY 10/18/21 03/10/22 aspirin 81 mg tablet,delayed 1 tab PO DAILY 10/18/21 03/10/22 release atorvastatin 20 mg tablet 1 tab PO DAILY 10/18/21 03/10/22 celecoxib 200 mg capsule 1 cap PO DAILY PRN Pain 10/18/21 10/18/21 cholecalciferol (vitamin D3) 25 1 cap PO DAILY 10/18/21 03/10/22 mcg (1,000 unit) capsule (Vitamin D3) cyclobenzaprine 10 mg tablet 1 tab PO Q8H PRN muscle spasm 10/18/21 10/18/21 fluticasone propionate 220 1 puff PO BID 10/18/21 03/10/22 mcg/actuation HFA aerosol inhaler (Flovent HFA) fluticasone propionate 50 2 spray intranasal DAILY 10/18/21 03/10/22 mcg/actuation nasal spray,suspension hydrochlorothiazide 12.5 mg tablet 1 tab PO DAILY 10/18/21 03/10/22 ipratropium 20 mcg-albuterol 100 1 puff PO QID 10/18/21 03/10/22 mcg/actuation mist for inhalation (Combivent Respimat) montelukast 10 mg tablet 1 tab PO QPM 10/18/21 03/10/22 naproxen 500 mg tablet 1 tab PO BID PRN pain 10/18/21 10/18/21 Previous Rx's Medication Instructions Recorded prednisone 20 mg tablet 40 mg PO DAILY #8 tabs 10/19/21 quetiapine 25 mg tablet (Seroquel) 12.5 mg PO BID PRN 03/22/22 Agitation/aggression #30 tabs quetiapine 25 mg tablet (Seroquel) 25 mg PO BEDTIME #30 tabs 03/22/22 Allergies Allergy/AdvReac Type Severity Reaction Status Date / Time No Known Allergies Allergy Unknown UNKNOWN Verified 09/16/21 20:25 [NO KNOWN ALLERGIES] Review of Systems Review of Systems: In addition to documented HPI above, the additional ROS was obtained: Constitutional: No Weight loss, No Fever, No Chills ENT/Mouth: No Ear Pain, No Nasal Congestion, No Sinus Pain, No Hoarseness, No sore throat, No Rhinorrhea, No Swallowing Difficulty Cardiovascular: No Chest Pain, No SOB Respiratory: No Cough, No Sputum, No Wheezing Gastrointestinal: No Nausea, No Vomiting, No Diarrhea, No Constipation, No Abdominal pain Genitourinary: No Dysuria, No Urinary Frequency, No Urinary Incontinence/retention, No Urgency Musculoskeletal: No joint pain, No Myalgias, No Joint Swelling Skin: No Skin Lesions, No rash Neuro: No Weakness, No Numbness, No Paresthesias PMFSH Past Medical History Medical History Allergic rhinitis Anasarca Asthma Bilateral primary osteoarthritis of knee COPD (chronic obstructive pulmonary disease) COPD (chronic obstructive pulmonary disease) COVID-19 High cholesterol Hyperlipidemia Hypertension Prostate CA Varicose veins of right lower extremity with inflammation Surgical History No pertinent past surgical history Family History Family History Other No family history of coronary artery disease Social History Social History Household Members: None Housing: Condominium Do you presently have visiting nurse or other home services: Yes (meghna - dtr and son are NEUROPATHOLOGIST's) Alcohol intake: former Patient Tobacco Use Status: Never used Tobacco Second Hand Smoke Exposure: No Advance Directives: Yes Advance Directives on File: Yes Advance Directives Date on File: 03/09/22 service: No Current occupational status: retired and disabled Current occupation: right handed Physical Exam Vital Signs: Vital Signs: Last Vital Signs Pulse 83 04/12/22 17:06 Resp 16 04/12/22 17:06 BP 145/57 H 04/12/22 17:06 Pulse Ox 98 04/12/22 12:42 O2 Del Method 04/12/22 17:06 BMI result Body Mass Index 28.1 Const: General: cooperative, alert and awake Nutritional Appearance: well nourished Orientation/consciousness: patient oriented x3 Limitations: language barrier HEENT: Head: Yes normal to inspection, Yes normocephalic, No abrasion, No contusion and Yes laceration (healing laceration at posterior head) Ears: hearing grossly normal bilaterally and external ears normal General nose exam: Normal external nose present and Normal nares present Face and sinus: Yes normal facial exam and Yes face symmetric Mouth: Normal oral and palatal mucosa present Eyes: General: appearance normal, both eyes and all related structures Visual Fitch: normal visual fitch by confrontation Alignment and Position: alignment normal Periorbital: periorbital findings normal Eyelids: Yes eyelids normal Conjunctivae: conjunctivae normal Sclerae: sclerae normal Corneas: corneas normal Pupils: Equal, round and reactive pupils present EOM: EOMs intact bilaterally Neck: Neck: Yes normal visual inspection and Yes full ROM Chest: Chest palpation & inspection: normal inspection of the chest Resp: Effort & Inspection: normal respiratory effort and not labored Auscultation: clear to auscultation bilaterally, no crackles, no rhonchi and no wheezes Cardio: Rate: regular rate Rhythm: regular rhythm GI: Inspection: Yes normal to inspection Palpation (GI): Soft to palpation and nontender Auscultation: normal bowel sounds Back/Spine/Pelvis: Back: No erythema, No warmth, No ecchymosis and No back tenderness Cervical Spine: cervical ROM normal Thoracic/Lumbar Spine: thoraco-lumbar ROM normal Skin: General skin exam: no rashes or lesions noted Neuro: General: patient oriented x3 Cranial nerves: Yes Equal, round and reactive pupils present Cognition (Neuro): normal cognition Gait exam (Neuro): Normal gait present Motor exam (neuro): 5/5 motor strength present throughout Extrem: General: Yes normal to inspection, Yes full ROM and Yes capillary refill normal Left lower extremity: normal to inspection, full ROM, normal capillary refill, hip/thigh Details: tenderness and normal ROM and knee Details: tenderness and normal ROM Course Course Course Narrative: EXAMINATION: XR hip LT min 2V, XR knee LT 2V CLINICAL INFORMATION: Fall 2 days ago COMPARISON: None. TECHNIQUE: AP view of the pelvis with AP and frog-leg lateral views of the left hip. AP, lateral, and oblique views of the left knee. FINDINGS: Degenerative changes of the lower lumbar spine. There may be partial sacralization of the left L5 transverse process with the sacrum. Osteoarthritis of the bilateral hips and sacroiliac joints. No displaced hip fracture seen. No fracture or dislocation of the knee. There is tricompartmental osteoarthritis moderate to severe in the medial and patellofemoral compartments. Intra-articular bodies are present. XR/XR knee LT 2V IMPRESSION: No acute osseous abnormality of the left hip or knee. ? Dictated By: Pako Salgado MD Signed By: <Electronically signed by Pako Salgado MD in OV> 04/12/22 1520 DD/ 1405 TD/TT:? Dehydrogenation Supervisor: TF EXAMINATION: CT HEAD WITHOUT CONTRAST CLINICAL INFORMATION: Fall two days ago.? COMPARISON: CT brain 03/09/2022. TECHNIQUE: Contiguous axial imaging was performed from the skull base to vertex without intravenous administration of contrast. This CT examination was performed using dose optimization techniques as appropriate, variously including the following: *Automated exposure control *Adjustment of mA and/or kV according to patient size (this includes techniques or standardized protocols for targeted exams where dose is matched to indication/reason for exam; i.e. extremities or head) *Use of iterative reconstruction technique DLP: 731 mGy-cm FINDINGS: There is no acute intra-axial, extra-axial bleed, masses or midline shift. There is no acute infarction evolution. There is no edema. The lateral ventricles are symmetrical but enlarged. There is diffuse periventricular hypodensity in both cerebral hemispheres without mass effect. Bone windows reveal no calvarial abnormality. Bilateral paranasal sinuses and mastoid air cells are well aerated with minimal mucoperiosteal thickening bilateral ethmoid sinuses. There is no scalp soft tissue abnormality. CT/CT head/brain wo IV con IMPRESSION: 1. No acute intracranial process seen. ? 2. Age-related cerebral volume loss with chronic small vessel ischemic changes. Intracranial process seen. ? 3. No major change compared to previous study 03/09/2022. Dictated By: Marty De La Cruz MD Signed By: <Electronically signed by Marty De La Cruz MD in OV> 04/12/22 1606 DD/ 1446 TD/TT:? Dehydrogenation Supervisor: MSM Medications Administered Discontinued Medications Generic Name Dose Route Start Last Admin Trade Name Freq PRN Reason Stop Dose Admin Albuterol Sulfate 2.5 mg 04/12/22 14:58 04/12/22 15:37 Albuterol Sulfate (0.083%) 2.5 Mg/3 Ml Vial.Neb INHALE 04/12/22 14:59 2.5 mg ONCE ONE Administration Medical Decision Making Medical Decision Making [facility] Narrative: 82-year-old Georgian-speaking male with past medical history of COPD presents to the emergency department with complaints of left hip and knee pain after falling 2 days ago hitting his head after reaching for something and losing his balance and hit his head on the kitchen door. Physical exam unremarkable. No eccymosis, erythema, or deformity noted. Pt walking with normal gait, does not appear unsteady. Smell of urine noted during exam. While in Xray pt began reaching for genitals and complaining of pain with urination. Will obtain urinalysis. Xray left hip and hip negative for acute osseous abnormality of the left hip or knee. CT head with no acute intracranial process seen, age-related cerebral volume loss with chronic small-vessel ischemic changes. Intracranial process seen with no major change compared to previous study 03/09/2022. Pending urine sample collection to rule out UTI based on symptom of dysuria. Will contact pt with UA results at pt's request. Educated to use [id number] Tylenol and/or Motrin for management of discomfort. HPI, PE, diagnostics, and plan discussed with patient with social media marketing analyst with no unanswered questions at this time. Educated to return to the emergency department with increased pain, difficulty with ambulation, fever, mental status changes, changes in vision, or any other concerning emergent symptoms. Recommended follow-up with primary care provider for further treatment and management. 1730: Urinalysis negative for UTI. Patient notified prior to discharge. Lab Data Labs: Lab Results 04/12/22 Range/Units 17:08 Urine Color Yellow Urine Appearance Clear Urine pH 6.5 (5.0-9.0) Ur Specific [place] 1.020 (1.005-1.025) Urine Protein Negative (Neg-Trace) mg/dL Urine Glucose (UA) Negative (Negative) mg/dL Urine Ketones Negative (Negative) mg/dL Urine Blood Trace H (Negative) Urine Nitrite Negative (Negative) Ur Leukocyte Esterase Trace H (Negative) Discharge Plan Discharge Clinical Impression: Fall Patient Disposition: Home, Self-Care Instructions: Fall Prevention for Older Adults (ED) Additional Instructions: Your x-rays were negative for fracture. We have collected a urine sample and will contact you with the results at your request. Please manage her pain with [id number] Tylenol and/or Motrin as needed. Please return to the emergency department with increased pain, difficulty with ambulation, fever, mental status changes, changes in vision, or any other concerning emergent symptoms. Recommended follow-up with your primary care provider for further treatment and management. Xray left hip and hip negative for acute osseous abnormality of the left hip or knee. CT head with no acute intracranial process seen, age-related cerebral volume loss with chronic small-vessel ischemic changes. Intracranial process seen with no major change compared to previous study 03/09/2022. Prescriptions: No Action celecoxib 200 mg capsule 1 cap PO DAILY PRN (Reason: Pain) cyclobenzaprine 10 mg tablet 1 tab PO Q8H PRN (Reason: muscle spasm) atorvastatin 20 mg tablet 1 tab PO DAILY albuterol sulfate 2.5 mg /3 mL (0.083 %) solution for nebulization 1 amp inhalation Q6H PRN (Reason: wheezing) amlodipine 5 mg tablet 1 tab PO DAILY aspirin 81 mg tablet,delayed release (DR/EC) 1 tab PO DAILY acetaminophen 650 mg tablet extended release 2 tab PO Q8H PRN (Reason: Pain) montelukast 10 mg tablet 1 tab PO QPM fluticasone propionate [Flovent HFA] 220 mcg/actuation HFA aerosol inhaler 1 puff PO BID albuterol sulfate [Ventolin HFA] 90 mcg/actuation HFA aerosol inhaler 2 puff PO Q4-6H PRN (Reason: Allergic Reaction) fluticasone propionate 50 mcg/actuation spray,suspension 2 spray intranasal DAILY naproxen 500 mg tablet 1 tab PO BID PRN (Reason: pain) cholecalciferol (vitamin D3) [Vitamin D3] 25 mcg (1,000 unit) capsule 1 cap PO DAILY hydrochlorothiazide 12.5 mg tablet 1 tab PO DAILY Combivent Respimat 20-100 mcg/actuation mist 1 puff PO QID prednisone 20 mg tablet 40 mg PO DAILY Qty: 8 0RF quetiapine [Seroquel] 25 mg tablet 25 mg PO BEDTIME Qty: 30 0RF quetiapine [Seroquel] 25 mg tablet 12.5 mg PO BID PRN (Reason: Agitation/aggression) Qty: 30 0RF Rx Instructions: You may get 12.5-25 mg twice daily as needed for agitation Referrals: [facility] [place] [facility] [Provider Group] [facility] [place] [facility] Group] [facility] [place] [facility] [Provider Group] Print Language: Georgian
[2022-04-12] MEDS: Albuterol Sulfate (0.083%) 2.5 MG/3 ML VIAL.NEB INHALE (15:37)
[2022-04-12 15:38] VITALS: PULSE 68; RESP 18; O2SAT 98
[2022-04-12 17:06] VITALS: BP 145/57; PULSE 83; RESP 16
[2022-04-12 17:22] LABS: Appearance Urine Clear; Color Urine Yellow; Glucose Urine UA Negative (Negative); Leukocyte Esterase Urine Trace (Negative); Nitrite Urine Negative (Negative); PH 6.5 (5.0-9.0); UMIC TRIGGER UACC YES; Urine Blood Trace (Negative); Urine Ketones Negative (Negative); Urine Protein Negative (Neg-Trace)
[2022-04-12 17:28] LABS: Bacteria Urine None Seen (None Seen); Hyaline Casts Urine 0-2 /LPF (0-2); Squamous Epithelial Cell Urine 0-2 /HPF (0-2); WBC Urine 0-5 /HPF (0-5)
== END 2022-04-12 17:33 | disposition home or self-care (01) ==
PROVIDERS: Nurse Practitioner Family; Emergency Provider Emergency Medicine
DX: S09.90XA Unspecified injury of head, initial encounter (principal); S79.912A Unspecified injury of left hip, initial encounter; R51.9 Headache, unspecified; M25.562 Pain in left knee; M25.552 Pain in left hip; W01.10XA Fall on same level from slipping, tripping and stumbling with subsequent striking against unspecified object, initial encounter; Y93.9 Activity, unspecified; Y92.9 Unspecified place or not applicable; Y99.9 Unspecified external cause status; Z79.899 Other long term (current) drug therapy
CPT/HCPCS: 70450; 73502; 73560; 81001; 94640; 99284

== ENCOUNTER 2023-04-24 10:19 | Emergency (ER) | payer OTHER, SELFPAY ==
--- NOTE | ~2023-04-24 | CT_ITS ---
EXAMINATION: CT HEAD WITHOUT CONTRAST CT CERVICAL SPINE WITHOUT CONTRAST CLINICAL INFORMATION: Status post fall. Altered mental status. COMPARISON: CT cervical spine 09/16/2013, CT head 04/12/2022. Selected images of the chest CT of 09/17/2021 TECHNIQUE: Contiguous axial images are obtained from the skull base to the vertex without intravenous contrast administration. Multidetector volumetric CT imaging of the cervical spine is acquired without intravenous contrast administration. Postprocessing is performed at a dedicated workstation. Multiplanar reformatted images are submitted. This CT scan was performed using dose optimization techniques as appropriate to a performed exam including the following: *Automated exposure control *Adjustment of mA and/or kV according to patient size (this includes techniques or standardized protocols for targeted exams were dose is matched to indication/reason for exam; i.e. extremities or head) *Use of iterative reconstruction technique. DLP: 1027 mGy-cm (CT head). 432 mGy-cm (CT Cervical spine). FINDINGS: CT head: There is no evidence of acute intracranial hemorrhage, midline shift or mass effect. Noonan to white matter differentiation is well preserved. No abnormal extra-axial fluid collection is seen. Bilateral periventricular and subcortical white matter mild patchy low-attenuation changes are noted, likely of chronic microangiopathy. There is mild global volume loss with proportionate dilatation of the ventricles and cortical sulci. The osseous calvarium is intact. Moderate opacification of the ethmoid air cells is noted bilaterally. Remainder of the visualized paranasal sinuses are well-aerated. Bilateral mastoid air cells and middle ear cavities are well-aerated. Small subgaleal hematoma/soft tissue swelling is noted over the left occipital region. The patient is status post bilateral lens extraction. CT cervical spine: Personal cervical lordosis which is likely related to muscle spasm or positioning of the patient. Atlantoaxial and atlantooccipital alignments are maintained. Posterior elements are intact and in normal alignment. Varying degree facet arthropathy is noted bilaterally, greater from C3 to C7. There is severe disc space narrowing at C4-C5, C5-C6 and C6-C7 disc spaces with marginal endplate osteophytes. Vertebral body heights are maintained. Minimal grade 1 retrolisthesis of C5 over C6 and of C6 over C7 is a stable finding. Severe bilateral neural foraminal encroachment is noted from C4 to C7. No evidence of prevertebral soft tissue swelling. The airway is patent. No focal thyroid nodule is seen. Evaluation of the lung parenchyma in the visualized apices is limited due to respiratory motion artifacts. There is a partially visualized 0.4 cm density in the right lung apex (series 20 image 317 through 318 of 318) on retrospect the finding is unchanged compared to previous CT scan of the chest of 09/17/2021. CT/CT cervical spine wo IV con IMPRESSION: 1. No evidence of acute intracranial abnormality. Specifically, there is no evidence of acute intracranial hemorrhage or acute fracture of the osseous calvarium. 2. No evidence of acute fracture or traumatic subluxation in the cervical spine. Cervical spondylosis. 3. A 0.4 cm partially visualized density in the right lung apex; the visualized portion does not appear to be significantly changed compared to previous CT scan of the chest of 09/17/2021. The finding is however not completely evaluated on the current CT scan and a follow-up chest CT scan on a nonemergent basis may be considered.
--- NOTE | ~2023-04-24 | XR_ITS ---
EXAMINATION: XR CHEST CLINICAL INFORMATION: Fall. COMPARISON: Most recent chest radiograph dated 03/09/2022. TECHNIQUE: Frontal view of the chest was obtained. FINDINGS: Stable right lower lobe calcified granuloma. No new airspace consolidation. No pleural effusion or pneumothorax. Stable cardiomediastinal silhouette. XR/XR chest 1V IMPRESSION: No acute cardiopulmonary findings.
--- NOTE | 2023-04-24 10:25 | ECG_ITS ---
Test Reason : FALL Blood Pressure : / mmHG Vent. Rate : 091 BPM Atrial Rate : 091 BPM P-R Int : 170 ms QRS Dur : 086 ms QT Int : 344 ms P-R-T Axes : 064 067 121 degrees QTc Int : 423 ms Normal sinus rhythm ST depression inferior and lateral leads, possible ischemia Abnormal ECG When compared with ECG of 19-MAR-2022 05:45, Vent. rate has increased BY [address] now depressed in Inferior leads ST now depressed in Anterolateral leads Referred By: Douglas Hancock Electronically Signed By:REID FRANCIS
--- NOTE | 2023-04-24 10:32 | ED.GENADULT ---
HPI - General Adult General Chief complaint: General Medical Stated complaint: UNWIT FALL, NO COMP,CAREGIVER WANTS EVAL PER EMS Time Seen by Provider: 04/24/23 10:22 Source: patient and EMS Mode of arrival: EMS Limitations: other (poor historian ) History of Present Illness HPI narrative: 83 yo m hx of copd, dementia, cognitive d/o presents for evaluation of fall , according to EMS caregiver who patient lives with stepped out to go to the store, patient supposedly fell when caregiver arrived patient was up and walking and went to the bathroom. When EMS arrived patient was also in the bathroom. According to patient and EMS he is not on any other blood thinners other than aspirin. Patient states he feels fine and he does not know why he is here. He is alert and oriented x4. Denies medical complaints. Unable to tell me exactly how he fell. Related Data Home Medications Medication Instructions Recorded Confirmed acetaminophen 650 mg 2 tab PO Q8H PRN Pain 10/18/21 03/10/22 tablet,extended release albuterol sulfate 2.5 mg/3 mL 1 amp inhalation Q6H PRN wheezing 10/18/21 03/10/22 (0.083 %) solution for nebulization albuterol sulfate 90 mcg/actuation 2 puff PO Q4-6H PRN Allergic 10/18/21 03/10/22 aerosol inhaler (Ventolin HFA) Reaction amlodipine 5 mg tablet 1 tab PO DAILY 10/18/21 03/10/22 aspirin 81 mg tablet,delayed 1 tab PO DAILY 10/18/21 03/10/22 release atorvastatin 20 mg tablet 1 tab PO DAILY 10/18/21 03/10/22 celecoxib 200 mg capsule 1 cap PO DAILY PRN Pain 10/18/21 10/18/21 cholecalciferol (vitamin D3) 25 1 cap PO DAILY 10/18/21 03/10/22 mcg (1,000 unit) capsule (Vitamin D3) cyclobenzaprine 10 mg tablet 1 tab PO Q8H PRN muscle spasm 10/18/21 10/18/21 fluticasone propionate 220 1 puff PO BID 10/18/21 03/10/22 mcg/actuation HFA aerosol inhaler (Flovent HFA) fluticasone propionate 50 2 spray intranasal DAILY 10/18/21 03/10/22 mcg/actuation nasal spray,suspension hydrochlorothiazide 12.5 mg tablet 1 tab PO DAILY 10/18/21 03/10/22 ipratropium 20 mcg-albuterol 100 1 puff PO QID 10/18/21 03/10/22 mcg/actuation mist for inhalation (Combivent Respimat) montelukast 10 mg tablet 1 tab PO QPM 10/18/21 03/10/22 naproxen 500 mg tablet 1 tab PO BID PRN pain 10/18/21 10/18/21 Previous Rx's Medication Instructions Recorded prednisone 20 mg tablet 40 mg (2 x 20 mg) PO DAILY #8 tabs 10/19/21 quetiapine 25 mg tablet (Seroquel) 12.5 mg (1/2 x 25 mg) PO BID PRN 03/22/22 Agitation/aggression #30 tabs quetiapine 25 mg tablet (Seroquel) 25 mg PO BEDTIME #30 tabs 03/22/22 Allergies Allergy/AdvReac Type Severity Reaction Status Date / Time No Known Allergies Allergy Unknown UNKNOWN Verified 09/16/21 20:25 [NO KNOWN ALLERGIES] Review of Systems Review of Systems: Constitutional : No Weight loss, No Fever, No Chills, No Fatigue, No Malaise ENT/Mouth : No sore throat, No Rhinorrhea Eyes: No Eye Pain, No Swelling, No Redness Cardiovascular : No Chest Pain, No SOB, No Dyspnea on Exertion, No Orthopnea, No Edema, No Palpitations Respiratory : No Cough, No Sputum, No Wheezing Gastrointestinal : No Nausea, No Vomiting, No Diarrhea, No Constipation, No abdominal Pain, No Hematochezia, No Melena Genitourinary : No Dysuria, No Urinary Frequency, No Hematuria, Musculoskeletal : No joint pain, No Myalgias, No Joint Swelling Skin : No Skin Lesions, No rash Neuro : No Weakness, No Numbness, No Dizziness, No Headache Psych : No Anxiety/Panic, No Depression All other systems reviewed and are negative Yes all other systems are reviewed and are negative [facility] Past Medical History Attestation statement: The following information was validated with the patient. Source: old records reviewed Medical History Anasarca COVID-19 COPD (chronic obstructive pulmonary disease) Allergic rhinitis Bilateral primary osteoarthritis of knee Hyperlipidemia Hypertension High cholesterol Prostate CA COPD (chronic obstructive pulmonary disease) Asthma Varicose veins of right lower extremity with inflammation Surgical History No pertinent past surgical history Family History Family History Other No family history of coronary artery disease Social History Social History Household Members: None Housing: Condominium Do you presently have visiting nurse or other home services: Yes (meghna - dtr and son are [employer]ING [employer]'s) Alcohol intake: current Alcohol intake frequency: a few times a week Patient Tobacco Use Status: Never used Tobacco Smoked in Last 30 Days: No Second Hand Smoke Exposure: No Use of substances other than those prescribed or required for medical reasons: No Advance Directives: Yes Advance Directives on File: Yes Advance Directives Date on File: 03/09/22 service: No Current occupational status: retired and disabled Current occupation: right handed Physical Exam ED Vital Signs: Vital Signs - 24 hr 04/24/23 11:18 04/24/23 11:58 Temperature 98.1 F Pulse Rate 76 Respiratory Rate 18 18 Blood Pressure 133/48 L Pulse Oximetry 96 Oxygen Delivery Method Room Air BMI result Body Mass Index 29.3 vss Appearance: Alert.? Oriented X3.? No acute distress.? Head: Normocephalic, atraumatic, no step-offs or deformities Eyes: Pupils equal, round and reactive to light.? Neck: Normal inspection.? Neck supple.? CVS: Normal heart rate and rhythm.? Pulses normal.? Respiratory: No respiratory distress.? Breath sounds normal.? Abdomen: Soft and nontender.? Skin: Skin warm and dry.? Normal skin color.? Normal skin turgor.? Extremities: No lower extremity edema.? No calf ttp. 5/5 strength to bilateral upper and lower extremities Back: No midline tenderness, no C-spine tenderness, full range of motion, no CVA tenderness bilaterally Neuro: Oriented X 3.? No motor deficit.? No sensory deficit. CN 2-12 intact Course Reevaluation(s) Reevaluation #1: CBC with slight leukocytosis, no left shift. This could be reactive unlikely infectious. Chemistry unremarkable. Troponin negative, EKG nonischemic Reevaluation #2: No acute intracranial abnormality no evidence of acute intracranial hemorrhage. No evidence of acute fracture traumatic subluxation. Previously noted density in the right lung apex still present not changed significantly. Chest x-ray unremarkable. Time: 16:45 Reevaluation #3: Repeat troponin and urine pending. Sign out to Shireen Pacheco [employer] pending labs and reval. Time: 16:45 Medical Decision Making Medical Decision Making [facility] Narrative: 1040 83-year-old male presents status post unwitnessed fall. Poor historian. Physical exam benign Will rule out traumatic injury to head and neck. Will also obtain chest x-ray to rule out rib fractures, pneumothorax although unlikely. Will rule out metabolic derangements, urinary infection, arrhythmia. Unlikely pulmonary embolism. Plan at this time medical clearance and discharge patient back home if workup is negative Differential Diagnosis Differential Diagnoses: The differential diagnosis associated with the presentation includes Will rule out traumatic injury to head and neck. Will also obtain chest x-ray to rule out rib fractures, pneumothorax although unlikely. Will rule out metabolic derangements, urinary infection, arrhythmia. Unlikely pulmonary embolism. Admission/Observation Consideration of admission/observation: Escalation of care including admission/observation considered Lab Data [facility] Lab Attestation statement: I reviewed the patient's lab results. 04/24/23 11:31 12 11:31 Labs: Lab Results 04/24/23 04/24/23 12 Range/Units 11:30 11:31 16:34 WBC 13.4 H (4.8-10.8) X10*3/uL RBC 5.03 (4.60-5.80) X10*6/uL Hgb 15.6 (14.0-18.0) g/dl Hct 43.5 (42.0-52.0) % MCV 86.5 (80.0-98.0) fL MCH 31.0 (27.0-33.0) pg MCHC 35.9 (31.0-36.0) g/dl RDW 13.2 (11.0-16.0) % Plt Count 231 (160-400) X10*3/uL MPV 10.8 (9.4-12.4) fL Immature Gran % (Auto) 0.3 (0.0-0.4) % Neut % (Auto) 78.4 H (45-73) % Lymph % (Auto) 12.9 L (20-40) % [place] % (Auto) 6.8 (2-11) % Eos % (Auto) 1.2 (0-4) % Baso % (Auto) 0.4 (0-2) % Lymph # (Auto) 1.7 (1.2-4.9) X10*3/uL [place] # (Auto) 0.9 (0.1-1.2) X10*3/uL Eos # (Auto) 0.2 (0.0-0.4) X10*3/uL Baso # (Auto) 0.1 (0.0-0.2) X10*3/uL Abs Immat Gran (auto) 0.04 H (0.00-0.03) X10*3/uL Absolute Neuts (auto) 10.5 H (2.0-8.3) x10*3/uL Absolute Nucleated RBC 0.000 (0.0-0.012) X10*3/uL Nucleated RBC % (auto) 0.0 (0.0-0.2) /100WBC PT 12.3 (11.1-13.3) SEC INR 1.0 (0.9-1.1) Sodium 142 (135-145) mmol/L Potassium 3.8 (3.3-5.1) mmol/L Chloride 107 (96-108) mmol/L Carbon Dioxide 25 (22-29) mmol/L Anion Gap 14 (12-20) BUN 20 H (9-16) mg/dL Creatinine 1.00 (0.5-1.4) mg/dL Estim Creat Clear Calc 62.0 Estimated GFR > 60 Random Glucose 111 (60-115) mg/dL Calcium 9.3 (8.4-10.2) mg/dL Magnesium 2.1 (1.6-2.6) mg/dL Total Bilirubin 0.6 (0.0-1.0) mg/dL AST 28 (5-37) U/L ALT 17 (0-40) U/L Alkaline Phosphatase 105 (39-117) U/L Troponin I High Sens 14.2 (<3.5-35.0) ng/L B-Natriuretic Peptide 39 (<100) pg/mL Total Protein 8.2 H (6.5-8.0) g/dL Albumin 4.1 (3.5-5.0) g/dL Urine Color Yellow Urine Appearance Clear Urine pH 6.0 (5.0-9.0) Ur Specific [place] 1.020 (1.005-1.025) Urine Protein Negative (Neg-Trace) mg/dL Urine Glucose (UA) Negative (Negative) mg/dL Urine Ketones Negative (Negative) mg/dL Urine Blood Negative (Negative) Urine Nitrite Negative (Negative) Ur Leukocyte Esterase Negative (Negative) Ethyl Alcohol < 10 mg/dL Independent Interpretation I performed an independent interpretation of an: CT Scan Radiology Impression Discussion of test interpretation with radiology: I have reviewed the radiologist's reading. Discharge Plan Discharge Clinical Impression: Fall, Dementia Patient Disposition: Home, Self-Care Instructions: Dementia (ED), Fall Prevention (ED) Additional Instructions: Take your medications as prescribed. If you were prescribed antibiotics today, it is important that you take your medication to their entirety, do not skip any doses, do not finish them early. Follow-up with your primary care provider this week. Return to the emergency department with new or worsening symptoms. Such as fevers, chills, chest pain, shortness of breath, nausea, vomiting, dizziness, headache, vision changes, lethargy In case of emergency call 911 XR/XR chest 1V IMPRESSION: No acute cardiopulmonary findings. CT/CT cervical spine wo IV con IMPRESSION: 1. No evidence of acute intracranial abnormality. Specifically, there is no evidence of acute intracranial hemorrhage or acute fracture of the osseous calvarium. 2. No evidence of acute fracture or traumatic subluxation in the cervical spine. Cervical spondylosis. 3. A 0.4 cm partially visualized density in the right lung apex; the visualized portion does not appear to be significantly changed compared to previous CT scan of the chest of 09/17/2021. The finding is however not completely evaluated on the current CT scan and a follow-up chest CT scan on a nonemergent basis may be considered. Prescriptions: No Action celecoxib 200 mg capsule 1 cap PO DAILY PRN (Reason: Pain) cyclobenzaprine 10 mg tablet 1 tab PO Q8H PRN (Reason: muscle spasm) atorvastatin 20 mg tablet 1 tab PO DAILY albuterol sulfate 2.5 mg /3 mL (0.083 %) solution for nebulization 1 amp inhalation Q6H PRN (Reason: wheezing) amlodipine 5 mg tablet 1 tab PO DAILY aspirin 81 mg tablet,delayed release (DR/EC) 1 tab PO DAILY acetaminophen 650 mg tablet extended release 2 tab PO Q8H PRN (Reason: Pain) montelukast 10 mg tablet 1 tab PO QPM fluticasone propionate [Flovent HFA] 220 mcg/actuation HFA aerosol inhaler 1 puff PO BID albuterol sulfate [Ventolin HFA] 90 mcg/actuation HFA aerosol inhaler 2 puff PO Q4-6H PRN (Reason: Allergic Reaction) fluticasone propionate 50 mcg/actuation spray,suspension 2 spray intranasal DAILY naproxen 500 mg tablet 1 tab PO BID PRN (Reason: pain) cholecalciferol (vitamin D3) [Vitamin D3] 25 mcg (1,000 unit) capsule 1 cap PO DAILY hydrochlorothiazide 12.5 mg tablet 1 tab PO DAILY Combivent Respimat 20-100 mcg/actuation mist 1 puff PO QID prednisone 20 mg tablet 40 mg PO DAILY Qty: 8 0RF quetiapine [Seroquel] 25 mg tablet 25 mg PO BEDTIME Qty: 30 0RF quetiapine [Seroquel] 25 mg tablet 12.5 mg PO BID PRN (Reason: Agitation/aggression) Qty: 30 0RF Rx Instructions: You may get 12.5-25 mg twice daily as needed for agitation Referrals: Physician,Nonstaff [Primary Care Provider] - 2 days
[2023-04-24 11:17] VITALS: BP 148/68; PULSE 72; O2SAT 94
[2023-04-24 11:18] VITALS: RESP 18; BMI 29.3
--- OUTSIDE RECORDS SUMMARY | 2023-04-24 11:27 | XMS_ITS | Continuity of Care Document ---
Author Name Unknown Organization [facility] ter Address [address] [place] [id number]- Care Team Providers Care Systems Programmer Analyst Name Role Phone Not on Staff, PCP Primary Care Physician Unavail able Encounter [facility] Date(s): 10/07/22 - 10/08/[address] [address]- Encounter Diagnosis Abrasion of forehead(Final) - 10/07/22 Discharge Disposition: A-D/C Home Attending Physician: Jassi Saldivar MD Admitting Physician: Jassi Saldivar MD Referring Physician: Not on Staff, Referring MD Allergies, Adverse Reactions, Alerts No Known Medication Allergies Immunizations Given and Recorded Vaccine Date Status Refusal Reason tetanus/diphtheria/pertussis, acel(Tdap) 10/08/22 Given Medications Albuterol (Eqv-ProAir HFA) 90 mcg/inh inhalation aerosol 2 puffs, Inhalation, Every 6 hours, 0 Refills, Maintenance, 04/10/21 2:17:00 EST, Partial fill uponpatient request if the prescription is for a schedule II opioid drug. Start Date: 04/10/21 Status: Ordered aspirin 81 mg oral delayed release tablet 81 mg, 1, tablet, By Mouth, Daily, # 30 tablet, Refills 0, Maintenance, 04/10/21 2:18:00 EST, Partial fill upon patient request if the prescription is for a schedule II opioid drug. Start Date: 04/10/21 Status: Ordered cholecalciferol 1000 intl units oral capsule 1 capsule = 25 mcg, By Mouth, Daily, # 75 capsule, 0 Refills, Maintenance, 04/10/21 2:19:00 EST, Capsule, Partial fill upon patient request if the prescription is for a schedule II opioid drug. Start Date: 04/10/21 Status: Ordered Flovent Diskus 50 mcg/inh inhalation powder 1 each, Inhalation, 2 times a day, # 60 each, 0 Refills, Maintenance, 04/10/21 2:17:00 EST, Powder,Partial fill upon patient request if the prescription is for a schedule II opioid drug. Start Date: 04/10/21 Status: Ordered hydroCHLOROthiazide 12.5 mg oral capsule 1 capsule = 12.5 mg, By Mouth, Daily, # 30 capsule, 0 Refills, Maintenance, 04/10/21 2:19:00 EST, Capsule, Partial fill upon patient request if the prescription is for a schedule II opioid drug. Start Date: 04/10/21 Status: Ordered montelukast 10 mg oral tablet 10 mg, 1, tablet, By Mouth, Daily, Refills 0, Maintenance, 04/10/21 2:18:00 EST, Partial fill upon patient request if the prescription is for a schedule II opioid drug. Start Date: 04/10/21 Status: Ordered Tylenol 325 mg oral tablet 975 mg, 3, tablet, By Mouth, Every 6 hours, Refills 0, Maintenance, 04/11/21 10:22:00 EST, Partial fill upon patient request if the prescription is for a schedule II opioid drug. Start Date: 04/11/21 Status: Ordered Problem List Condition Confirmation Course Effective Dates Status Health atus Informant Obese class I Confirmed Active Results Radiology Reports * Exam Date Time Procedure Performing Provider Status 10/07/22 11:[address] Cervical Spine W/O Contrast Bobbi Yeh; Shiva (Verified) Notes: (CT Cervical Spine W/O Contrast) Reason For Exam: Neck trauma, dangerous injury mechanism;Other: RESULT: CT Cervical Spine W/O Contrast CT Orbits W/O Contrast, CT Head/Brain W/O Contrast, CT Cervical Spine W/O Contrast Hx of Present Illness: Pt from home, lost balance and slippe dand hit left side of face, lac above eyebrow, swellign on left cheekbone, denies vision loss. 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 Automatic tube modulation was used for the face and cervical spine and iterative dose reconstruction was used for both the head, face and cervical spine to optimize scan parameters and image quality. The cervical and facial portions of the exam were performed with automatic exposure control. CTDIvol Body: 12.30 mGy, DLP Body: 388 mGy*cm. CTDIvol Head: 41.30 mGy, DLP Head: 672 mGy*cm. FINDINGS: Collar Sewer View Findings, Lines and Tubes: None. HEAD: BRAIN and EXTRA-AXIAL SPACES: No parenchymal hemorrhage, midline shift or mass effect. Noonan-white matter differentiation is well preserved. No acute infarct. Negative insular ribbon sign. Atherosclerotic vascular calcification ofthe carotid arteries but negative hyperdense vessel sign. Mild prominence of the ventricles and sulci consistent with parenchymal volume loss. Mild periventricular and subcortical low-density white matter changes. No subarachnoid hemorrhage, subdural or epidural collections. CALVARIUM, SKULL BASE AND SOFT TISSUES: No fractures or suspicious bony lesions. The paranasal sinuses and mastoid air cells are clear. Status-post bilateral lens extraction. The extracranial soft tissues are unremarkable. CERVICAL SPINE: No fracture. No acute osseous abnormalities. There is reversal of lordosis which may be due to positioning. There is moderate disc space narrowing throughout the cervical spine. The intervertebral disc spaces are preserved. No locked or perchedfacet. OTHER BONES: Limited visualized upper ribs and clavicles are intact. CERVICAL SOFT TISSUES AND LUNG APICES: Unremarkable. Clear lung apices. MAXILLOFACIAL: Orbital and periorbital soft tissues: There is left periorbital soft tissue swelling-hematoma extending inferiorly along the left face and cheek. There is no evidence for globe rupture or intraorbital hematoma. Patient has undergone bilateral lens extractions. Orbital pardo: Intact. Paranasal sinuses: No air-fluid levels. Clear. Nasal bones: Nondisplaced bilateral nasal bone fractures. Minimally displaced fracture of the left maxillary frontal process near the base of the left nasal bone. Zygomatic arches: Intact. Pterygoid plates: Intact. Maxilla and alveolus: Normal. Mandible: Normal. No fracture or dislocation. IMPRESSION: No acute intracranial hemorrhage, mass effect or edema. No cervical fracture. Left periorbital soft tissue swelling-hematoma. No acute intra-abdominal pathology. No orbital wallfracture. Nondisplaced bilateral nasal bone fracture and minimally depressed fracture of the left maxillary frontal process near the base of the left nasal bone. WSN: [id number] Ordering Physician: Nell Fine Dictated By: Zach Dick MD Dictated Date/Time: 10/07/22 11:20 p Reviewed By: Zach Dick MD Signed By: Zach Dick MD Signed Date/Time: 10/07/22 11:20 pm Transcribed By: CHIRAG Transcribed Date/Time: 10/07/22 11:13 pm * Exam Date Time Procedure Performing Provider Status 10/07/22 11:[address] Head/Brain W/O Contrast Doni Yeh; Auth (Verified) Notes: (CT Head/Brain W/O Contrast) Reason For Exam: Trauma RESULT: CT Head/Brain W/O Contrast CT Orbits W/O Contrast, CT Head/Brain W/O Contrast, CT Cervical Spine W/O Contrast Hx of Present Illness: Pt from home, lost balance and slippe dand hit left side of face, lac above eyebrow, swellign on left cheekbone, denies vision loss. 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 Automatic tube modulation was used for the face and cervical spine and iterative dose reconstruction was used for both the head, face and cervical spine to optimize scan parameters and image quality. The cervical and facial portions of the exam were performed with automatic exposure control. CTDIvol Body: 12.30 mGy, DLP Body: 388 mGy*cm. CTDIvol Head: 41.30 mGy, DLP Head: 672 mGy*cm. FINDINGS: Collar Sewer View Findings, Lines and Tubes: None. HEAD: BRAIN and EXTRA-AXIAL SPACES: No parenchymal hemorrhage, midline shift or mass effect. Noonan-white matter differentiation is well preserved. No acute infarct. Negative insular ribbon sign. Atherosclerotic vascular calcification ofthe carotid arteries but negative hyperdense vessel sign. Mild prominence of the ventricles and sulci consistent with parenchymal volume loss. Mild periventricular and subcortical low-density white matter changes. No subarachnoid hemorrhage, subdural or epidural collections. CALVARIUM, SKULL BASE AND SOFT TISSUES: No fractures or suspicious bony lesions. The paranasal sinuses and mastoid air cells are clear. Status-post bilateral lens extraction. The extracranial soft tissues are unremarkable. CERVICAL SPINE: No fracture. No acute osseous abnormalities. There is reversal of lordosis which may be due to positioning. There is moderate disc space narrowing throughout the cervical spine. The intervertebral disc spaces are preserved. No locked or perchedfacet. OTHER BONES: Limited visualized upper ribs and clavicles are intact. CERVICAL SOFT TISSUES AND LUNG APICES: Unremarkable. Clear lung apices. MAXILLOFACIAL: Orbital and periorbital soft tissues: There is left periorbital soft tissue swelling-hematoma extending inferiorly along the left face and cheek. There is no evidence for globe rupture or intraorbital hematoma. Patient has undergone bilateral lens extractions. Orbital pardo: Intact. Paranasal sinuses: No air-fluid levels. Clear. Nasal bones: Nondisplaced bilateral nasal bone fractures. Minimally displaced fracture of the left maxillary frontal process near the base of the left nasal bone. Zygomatic arches: Intact. Pterygoid plates: Intact. Maxilla and alveolus: Normal. Mandible: Normal. No fracture or dislocation. IMPRESSION: No acute intracranial hemorrhage, mass effect or edema. No cervical fracture. Left periorbital soft tissue swelling-hematoma. No acute intra-abdominal pathology. No orbital wallfracture. Nondisplaced bilateral nasal bone fracture and minimally depressed fracture of the left maxillary frontal process near the base of the left nasal bone. WSN: [id number] Ordering Physician: Nell Fine Dictated By: Zach Dick MD Dictated Date/Time: 10/07/22 11:20 p Reviewed By: Zach Dick MD Signed By: Zach Dick MD Signed Date/Time: 10/07/22 11:20 pm Transcribed By: CHIRAG Transcribed Date/Time: 10/07/22 11:13 pm * Exam Date Time Procedure Performing Provider Status 10/07/22 11:[address] Orbits W/O Contrast Bobbi Yeh; Auth (Verified) Notes: (CT Orbits W/O Contrast) Reason For Exam: Trauma RESULT: CT Orbits W/O Contrast CT Orbits W/O Contrast, CT Head/Brain W/O Contrast, CT Cervical Spine W/O Contrast Hx of Present Illness: Pt from home, lost balance and slippe dand hit left side of face, lac above eyebrow, swellign on left cheekbone, denies vision loss. 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 Automatic tube modulation was used for the face and cervical spine and iterative dose reconstruction was used for both the head, face and cervical spine to optimize scan parameters and image quality. The cervical and facial portions of the exam were performed with automatic exposure control. CTDIvol Body: 12.30 mGy, DLP Body: 388 mGy*cm. CTDIvol Head: 41.30 mGy, DLP Head: 672 mGy*cm. FINDINGS: Collar Sewer View Findings, Lines and Tubes: None. HEAD: BRAIN and EXTRA-AXIAL SPACES: No parenchymal hemorrhage, midline shift or mass effect. Noonan-white matter differentiation is well preserved. No acute infarct. Negative insular ribbon sign. Atherosclerotic vascular calcification ofthe carotid arteries but negative hyperdense vessel sign. Mild prominence of the ventricles and sulci consistent with parenchymal volume loss. Mild periventricular and subcortical low-density white matter changes. No subarachnoid hemorrhage, subdural or epidural collections. CALVARIUM, SKULL BASE AND SOFT TISSUES: No fractures or suspicious bony lesions. The paranasal sinuses and mastoid air cells are clear. Status-post bilateral lens extraction. The extracranial soft tissues are unremarkable. CERVICAL SPINE: No fracture. No acute osseous abnormalities. There is reversal of lordosis which may be due to positioning. There is moderate disc space narrowing throughout the cervical spine. The intervertebral disc spaces are preserved. No locked or perchedfacet. OTHER BONES: Limited visualized upper ribs and clavicles are intact. CERVICAL SOFT TISSUES AND LUNG APICES: Unremarkable. Clear lung apices. MAXILLOFACIAL: Orbital and periorbital soft tissues: There is left periorbital soft tissue swelling-hematoma extending inferiorly along the left face and cheek. There is no evidence for globe rupture or intraorbital hematoma. Patient has undergone bilateral lens extractions. Orbital pardo: Intact. Paranasal sinuses: No air-fluid levels. Clear. Nasal bones: Nondisplaced bilateral nasal bone fractures. Minimally displaced fracture of the left maxillary frontal process near the base of the left nasal bone. Zygomatic arches: Intact. Pterygoid plates: Intact. Maxilla and alveolus: Normal. Mandible: Normal. No fracture or dislocation. IMPRESSION: No acute intracranial hemorrhage, mass effect or edema. No cervical fracture. Left periorbital soft tissue swelling-hematoma. No acute intra-abdominal pathology. No orbital wallfracture. Nondisplaced bilateral nasal bone fracture and minimally depressed fracture of the left maxillary frontal process near the base of the left nasal bone. WSN: [id number] Ordering Physician: Nell Fine Dictated By: Zach Dick MD Dictated Date/Time: 10/07/22 11:20 p Reviewed By: Zach Dick MD Signed By: Zach Dick MD Signed Date/Time: 10/07/22 11:20 pm Transcribed By: CHIRAG Transcribed Date/Time: 10/07/22 11:13 pm Vital Signs Most recent to oldest [Reference Range]: 1 2 3 Oxygen Saturation [94-100 %] 100 % (10/08/22 3:50 AM) 97 % (10/08/22 12:51 AM) 100 % (10/07/22 8:45 PM) Pulse Rate [55-90 bpm] 62 bpm (10/08/22 3:50 AM) 61 bpm (10/08/22 12:51 AM) 63 bpm (10/07/22 8:45 PM) Blood Pressure [90-138/55-84 mm Hg] 134/59mm Hg (10/08/22 3:50 AM) 138/57mm Hg (10/08/22 12:51 AM) 186/68mm Hg *H* (10/07/22 8:45 PM) Respiratory Rate [16-30 br/min] 20 br/min (10/08/22 3:50 AM) 17 br/min (10/08/22 12:51 AM) 18 br/min (10/07/22 8:45 PM) Temperature [96.8-100.4 DegF] 98.1 DegF (10/08/22 3:50 AM) 98.1 DegF (10/08/22 12:51 AM) 97.9 DegF (10/07/22 8:45 PM) Liters per Minute 2 L/min (10/08/22 3:50 AM) 1.5 L/min (10/08/22 12:51 AM) 3 L/min (10/07/22 8:45 PM) Mode of Delivery (Oxygen) Nasal cannula (10/08/22 3:50 AM) Nasal cannula (10/08/22 12:51 AM) Nasal cannula (10/07/22 8:45 PM) Blood pressure sites Arm, right (10/08/22 3:50 AM) Arm, right (10/08/22 12:51 AM) Temperature Route Oral (10/08/22 3:50 AM) Oral (10/08/22 12:51 AM) Oral (10/07/22 8:45 PM) Note * Jose Carlos Chen: PERFORM, SIGN, VERIFY Event Display: Patient Education Handout Authored Date: [id number] * Jose Carlos Chen: PERFORM Event Display: Patient Education Leaflets Authored Date: [id number] Nose Fracture, with X-Ray ?? [id number] Nose Fracture, with X-Ray A broken bone (fracture) of the nose may be a minor crack. Or it may be a major break, with the parts of your nose pushed out of place. A fractured nose causes pain, swelling, and nasal stuffiness. You may have bleeding from your nose. By tomorrow, you may have bruising around your eyes. A minor fracture will heal in 3 to 4 weeks, with no more treatment needed. A major break that changes the shape of your nose may need to??be treated by an ear, nose, and throat doctor (ENT or concrete products machine operator). The ENT doctor will straighten the bones in your nose. This is called a reduction. Some fractures may need a reduction as soon as possible, such as when bleeding from the nose won't stop. Otherwise, it's best to wait a few days until the swelling has gone down. The doctor will then be able to easily see when your nose is back in the right position. Home care ??? Use an ice pack on your nose for??no more than 15 to??20 minutes at a time. Do this every 1 to 2 hours for the first??24 to 48 hours. Then use the ice??as needed to ease pain and swelling. To make an ice pack, put ice cubes in a plastic??bag that seals at the top. Wrap the bag in a clean, thin towel or cloth. Never put ice or an ice pack directly on your skin. ??? Tell your providerif you are taking aspirin or blood-thinning medicine. These medicines make it more likely that yournose will bleed. Your provider may need to change your dose. ??? You may use??[id number] painmedicine to control pain, unless another medicine was prescribed. If you have chronic liver or kidney disease or history of gastrointestinal ulcers,??talk with your provider before using this medicine. ??? Don???t drink alcohol or hot liquids for the next 2 days. Alcohol and hot liquids can dilate blood vessels in your nose. This can cause bleeding. ??? Don???t blow your nose for the first 2 days. Then, do so gently so you don't cause bleeding. ??? Don???t play contact sports in the next 6 weeks unless you can protect your nose from getting injured again. You can wear a special custom-fitted plastic face mask to protect your nose. ?? Special note on concussions If you had any symptoms of a concussion today, don???t return to sports or any activity that could result in another head injury. These are symptoms of a concussion: ??? Upset stomach (nausea) ??? Vomiting ??? Dizziness ??? Confusion ??? Headache ??? Memory loss ??? Loss of consciousness Wait until all of your symptoms are gone and your provider says it???s OK to resume your activity. Having a second head injury before you fully recover from the first one can lead to serious brain injury. ?? Follow-up care Follow up with your healthcare provider as advised. If your nose looks crooked after the swelling goes down, call the ENT doctor for an appointment??within the next 10 days. Also make an appointment if it???s still hard to breathe through 1 or both sides of your nose. If you have trouble getting anENT appointment, call your regular provider. If the bones are out of place, a reduction should be done 6 to 10??days??after the injury. In children, the reduction should be done 3 to 7??days??after the injury. After that time, the bones are more difficult to move back into place. If you had X-rays taken,??you will be told of any new findings that may affect your care. ?? When to get medical advice Call your healthcare provider right away??if any of these occur: ??? Bleeding from your nose, even after you've pinched your nostrils together for 15 minutes??without stopping ??? Swelling, pain, or redness on your face that gets worse ??? Fever of 100.4??F (38??C) or higher, as directed by your provider ??? Chills ??? Can't breathe from both sides of your nose after swelling goes down ??? Sinus pain ?? Call 911 Call 911 if you have: ??? Repeated vomiting ??? Severe headache or dizziness ??? Headache or dizziness that gets worse ??? Sensitivity to light and noise ??? Lack of awareness of surroundings ??? Abnormal drowsiness, or unable to wake up as normal ??? Confusion or change in behavior or speech ??? Memory loss ??? Convulsion, or seizure ?? Last Reviewed Date: 2021 ?? 8617-5375 [employer]. All rights reserved. This information is not intended as a substitute for professional medical care. Always follow your healthcare professional's instructions. ?? * Riya NO, Jose Carlos Francois: PERFORM Event Display: Patient Education Leaflets Authored Date: [id number] Head Injury (Adult) ?? [id number] Head Injury (Adult) You have a head injury. It doesn't appear serious at this time. But symptoms of a more serious problem, such as a mild brain injury (concussion) or bruising or bleeding in the brain, may appear later. For this reason, you or someone caring for you will need to watch for the symptoms listed below. Once you???re home, also be sure to follow any care directions you???re given. Home care Watch??for the following symptoms Seek emergency medical care if you have any of these symptoms over the next hours to days:? Headache that gets worse or doesn't go away ??? Nausea or vomiting ??? Dizziness ??? Sensitivity to light or noise ??? Unusual sleepiness or grogginess ??? Trouble falling asleep ??? Personality changes ??? Vision changes ??? Memory loss ??? Confusion ??? Trouble walking or clumsiness ??? Loss of consciousness (even for a short time) ??? Inability to be awakened ??? Stiff neck ??? Weakness ornumbness in any part of the body ??? Seizures General care ??? If you were prescribed medicines for pain, use them as directed. Note: Don???t take other medicines for pain without talking to your healthcare provider first. ??? To help reduce swelling and pain, apply a cold source to the injured area for up to 20 minutes at a time. Do this as often??as directed. Use a cold pack or bag of ice wrapped in a thin towel. Never apply a cold source directly to the skin. ??? If you are on a blood thinner for a health condition and have a head injury, follow your healthcare provider's specific directions. You are at a higher risk for bleeding fromthe blood thinner, so your provider will talk to you about taking extra precautions. ??? If you have cuts or scrapes as a result of your head injury, care for them as directed. ??? For the next 24 hours??(or longer, if directed): o Don???t drink alcohol or use sedatives or other medicines that makeyou sleepy. o Don???t drive or operate machinery. o Don???t do anything strenuous, such as heavy lifting or straining. o Limit tasks that need concentration. This includes reading, using a smartphone or computer, watching TV, and playing video games. o Don???t return to sports or other activities that could result in another head injury until approved by your healthcare provider. ?? Follow-up care Follow up with your healthcare provider, or as directed.??If imaging tests were done, they will be reviewed by a healthcare provider. You will be told the results and any new findings that may affectyour care. ?? When to seek medical advice Call your healthcare provider right away if any of the following occur: ??? Pain doesn???t get better or gets worse ??? New or increased swelling or bruising ??? Increased redness,??warmth,??drainage, or bleeding from the injured area ??? Fluid drainage or bleeding from the nose or ears ??? Any depression or bony abnormality in the injured area ??? Persistent confusion or lethargy ??? Personalitychanges ??? Bruising behind the ears or bruising around the eyes ?? Last Reviewed Date: 2022 ?? 9914-8102 [employer]. All rights reserved. This information is not intended as a substitute for professional medical care. Always follow your healthcare professional's instructions. ?? Patient Care team information Care Team Personnel Name: Twila Colorado RN Position: [facility] RN Member Role: Primary Care Nurse Name: Not on Staff, PCP Position: [facility] Physician (General Medicine) Member Role: PCP Name: Minerva Medel RN Position: [facility] RN Member Role: Primary Care Nurse Name: Caitlin Mancini RN Position: [facility] RN Member Role: Primary Care Nurse Name: Jose Carlos Chen Position: [facility] Associate Professional Member Role: ED Physician Watch And Clock Maker And Repairer Address: Address: [address] [place] [address] Name: Jassi Saldivar MD Position: [facility] ED Medicine MD Member Role: ED Attending Physician Address: Address: [address] [place] [address] Name: Tiarra Nguyen RN Position: [facility] ED RN W/OE and Tasks Member Role: Patient Care Provider Care Team Related Persons Name: JJ MEJIA Address: home [address] [place] [address] Name: CARTER MEJIA Address: home [address] [place] [id number]
[2023-04-24 11:36] LABS: MANUAL DIFF FLAG NO
[2023-04-24 11:37] LABS: Basophils Absolute Auto 0.1 X10*3/uL (0.0-0.2); Basophils Percent Auto 0.4 % (0-2); Eosinophils Absolute Auto 0.2 X10*3/uL (0.0-0.4); Eosinophils Percent Auto 1.2 % (0-4); Hematocrit 43.5 % (42.0-52.0); Hemoglobin 15.6 g/dl (14.0-18.0); Imm Gran Abs Auto 0.04 X10*3/uL (0.00-0.03); Imm Gran Pct Auto 0.3 % (0.0-0.4); Lymphocytes Absolute Auto 1.7 X10*3/uL (1.2-4.9); Lymphocytes Percent Auto 12.9 % (20-40); Mean Corpuscular HGB Conc 35.9 g/dl (31.0-36.0); Mean Corpuscular Volume 86.5 fL (80.0-98.0); Mean Platelet Volume 10.8 fL (9.4-12.4); Monocytes Absolute Auto 0.9 X10*3/uL (0.1-1.2); Monocytes Percent Auto 6.8 % (2-11); Neutrophils Absolute Auto 10.5 x10*3/uL (2.0-8.3); Neutrophils Percent Auto 78.4 % (45-73); Platelet Count 231 X10*3/uL (160-400); Red Blood Count 5.03 X10*6/uL (4.60-5.80); Red Cell Distribution Width 13.2 % (11.0-16.0); White Blood Count 13.4 X10*3/uL (4.8-10.8)
[2023-04-24 11:44] LABS: Prothrombin Time 12.3 SEC (11.1-13.3)
[2023-04-24 11:58] VITALS: BP 133/48; PULSE 76; RESP 18; TEMP 36.7; O2SAT 96
[2023-04-24 11:58] LABS: Alanine Aminotransferase 17 U/L (0-40); Albumin Level 4.1 g/dL (3.5-5.0); Alkaline Phosphatase 105 U/L (39-117); Anion Gap 14 (12-20); Aspartate Amino Transferase 28 U/L (5-37); Bilirubin Total 0.6 mg/dL (0.0-1.0); Blood Urea Nitrogen 20 mg/dL (9-16); Calcium 9.3 mg/dL (8.4-10.2); Carbon Dioxide 25 mmol/L (22-29); Chloride 107 mmol/L (96-108); Estimated Glomerular Filt Rate > 60; Glucose Random 111 mg/dL (60-115); Magnesium 2.1 mg/dL (1.6-2.6); Potassium 3.8 mmol/L (3.3-5.1); Sodium 142 mmol/L (135-145); Total Protein 8.2 g/dL (6.5-8.0)
[2023-04-24 12:02] LABS: B Type Natriuretic Peptide 39 pg/mL (<100)
[2023-04-24 12:06] LABS: Troponin-I High Sensitivity 14.2 ng/L (<3.5-35.0)
[2023-04-24 12:07] LABS: Ethanol < 10 mg/dL
--- NOTE | 2023-04-24 13:08 | PC.NURSE ---
spoke with daughter regarding discharge and need for patient to be picked up- daughter stating she needs to call her son
[2023-04-24 16:42] LABS: Appearance Urine Clear; Color Urine Yellow; Glucose Urine UA Negative (Negative); Leukocyte Esterase Urine Negative (Negative); Nitrite Urine Negative (Negative); Urine Blood Negative (Negative); Urine Ketones Negative (Negative); Urine Protein Negative (Neg-Trace)
[2023-04-24 16:48] LABS: Amphetamine Screen Urine Not Detected (Not Detect); Barbiturates, Urine Not Detected (Not Detect); Benzodiazepines Screen Urine Not Detected (Not Detect); Cannabinoid Screen Urine POSITIVE (Not Detect); Cocaine Screen Urine Not Detected (Not Detect); Fentanyl, urine Not Detected (Not Detect); Opiate Screen Urine Not Detected (Not Detect); Phencyclidine Screen Urine Not Detected (Not Detect)
[2023-04-24 17:01] LABS: Troponin-I High Sensitivity 23.6 ng/L (<3.5-35.0)
[2023-04-24 18:29] VITALS: BP 142/75; PULSE 77; RESP 20; O2SAT 97
[2023-04-24 19:06] LABS: Troponin-I High Sensitivity 20.9 ng/L (<3.5-35.0)
--- NOTE | 2023-04-24 19:18 | PC.NURSE ---
T/W spoke to daughter Rayne and updated on D/C, she reports grandson will be picking Pt up.
[2023-04-24 19:40] VITALS: BP 144/66; PULSE 78; RESP 20; O2SAT 96
== END 2023-04-24 19:45 | disposition home or self-care (01) ==
PROVIDERS: Physician Assistant; Registered Nurse Emergency; Emergency Provider Emergency Medicine
DX: Z04.3 Encounter for examination and observation following other accident (principal); F03.90 Unspecified dementia, unspecified severity, without behavioral disturbance, psychotic disturbance, mood disturbance, and anxiety; I10 Essential (primary) hypertension; J44.9 Chronic obstructive pulmonary disease, unspecified; Z91.81 History of falling
CPT/HCPCS: 36415; 70450; 71045; 72125; 80053; 80307; 81003; 83735; 83880; 84484; 85025; 85610; 93005; 99284

== ENCOUNTER → 2023-04-24 10:25 | Outpatient (BNV) | payer OTHER, SELFPAY | PROVIDERS: Emergency Provider Emergency Medicine; Visit Provider Internal Medicine | DX: R94.31 Abnormal electrocardiogram [ECG] [EKG] (principal) | CPT/HCPCS: 93010 ==

== ENCOUNTER 2023-05-24 10:34 | Emergency (ER) | payer OTHER, SELFPAY ==
--- NOTE | 2023-05-24 | ECG_ITS ---
Test Reason : SOB Blood Pressure : / mmHG Vent. Rate : 076 BPM Atrial Rate : 076 BPM P-R Int : 170 ms QRS Dur : 078 ms QT Int : 356 ms P-R-T Axes : 070 062 130 degrees QTc Int : 400 ms Normal sinus rhythm Nonspecific ST and T wave abnormality Abnormal ECG When compared with ECG of 24-APR-2023 10:33, No significant change was found Referred By: Generic ED Physician Electronically Signed By:ALLIE BENITEZ MD
--- NOTE | ~2023-05-24 | XR_ITS ---
EXAMINATION: XR KNEE, LEFT CLINICAL INFORMATION: Fall onto left knee. COMPARISON: 04/02/2022 TECHNIQUE: 5 views of the left knee. FINDINGS: The bones are diffusely demineralized. Large suprapatellar effusion. Superior and inferior anterior patellar spurs. Interval progression of [id number]-nd-[id number] medial joint space narrowing with subchondral sclerosis and medial marginal osteophytes. Small lateral marginal and posterior patellar osteophytes. Redemonstration of corticated ossicle lateral to the lateral femoral condyle. Increased irregular ossicles in the soft tissues along the posterior aspect of the knee. XR/XR knee LT 2V IMPRESSION: Large suprapatellar effusion. Interval progression of advanced degenerative changes in the knee. MRI recommended for further evaluation if there is clinical concern for fracture or other pathology. This study was presented today May 24, 2023 at 2:15 PM for interpretation. Stat results provided at this time as requested by referring provider.
--- NOTE | ~2023-05-24 | XR_ITS ---
EXAMINATION: XR CHEST CLINICAL INFORMATION: SOB COMPARISON: None available. TECHNIQUE: Frontal view of the chest was obtained. FINDINGS: The lungs are somewhat expanded and clear. Heart size and pulmonary vascularity is normal. There is a 7 mm calcified nodule right lung base. The heart size and pulmonary vascularity is normal. No gross bony abnormality seen. XR/XR chest 1V IMPRESSION: Unremarkable chest exam.
[2023-05-24 10:42] VITALS: BP 150/78; BP 152/70; PULSE 100; PULSE 90; RESP 28; TEMP 37.7; O2SAT 95; O2SAT 96; BMI 31.6
[2023-05-24 10:52] VITALS: BP 152/70; PULSE 94; RESP 26; TEMP 36.8; O2SAT 97
--- NOTE | 2023-05-24 10:54 | PC.NURSE ---
Belarusian speaking only, coming from home via EMS. Palletiser Operator utilized. Pt reports SOB since yesterday worsening, denies using albuterol at home. Pt has hx of asthma and COPD. EMS administered 1 duoneb and 125 mg of Solumedrol via IVP, no hypoxia for EMS. Pt noted to have increased SOB, appears anxious. Lung sounds assessed and are noted to be expiratory wheezing bilat and diminished in the bases. Pt denies CP or fevers/cough. Pt does also report left knee pain from slip and fall at home yesterday, no head hit or LOC. No deformity or bruising noted.
--- NOTE | 2023-05-24 11:50 | ED_ITS ---
HPI - SOB/Dyspnea General Chief Complaint: Dyspnea Stated Complaint: SOB Time Seen by Provider: 05/24/23 11:43 Source: patient, EMS and freezer unloader Mode of arrival: EMS Limitations: no limitations History of Present Illness HPI Narrative: 83 year old male with pmhx significant for COPD, asthma, mild cognitive disorder, HDL, HTN, prostate cancer, osteoarthritis of bilateral knees presents to the ED today via EMS from home for evaluation of shortness of breath x 1 day. States he has felt increasingly short of breath since yesterday. Was at rest at onset of symptoms. He does not use a rescue inhaler at home. Has not taken any OTC meds for this. He is not O2 dependent at home. Denies known sick contacts. Denies recent travel or long car rides. Denies fever, chills, headache, sore throat, cough, chest pain, nausea or vomiting, calf tenderness. Additionally admits to tripping yesterday while stepping out of his scooter, falling forward onto his knees. His EVIDENCE SPECIALIST witnessed fall and helped him to stand up and sit back on his scooter. Denies head strike or LOC. Not on AC. Since this time he has had left knee pain/swelling. He does not ambulate independently at baseline. Uses scooter to get around with help from his EVIDENCE SPECIALIST. bush regenerator utilized to communicate with patient during ED visit. Related Data Home Medications Medication Instructions Recorded Confirmed acetaminophen 650 mg 2 tab PO Q8H PRN Pain 10/18/21 03/10/22 tablet,extended release albuterol sulfate 2.5 mg/3 mL 1 amp inhalation Q6H PRN wheezing 10/18/21 03/10/22 (0.083 %) solution for nebulization albuterol sulfate 90 mcg/actuation 2 puff PO Q4-6H PRN Allergic 10/18/21 03/10/22 aerosol inhaler (Ventolin HFA) Reaction amlodipine 5 mg tablet 1 tab PO DAILY 10/18/21 03/10/22 aspirin 81 mg tablet,delayed 1 tab PO DAILY 10/18/21 03/10/22 release atorvastatin 20 mg tablet 1 tab PO DAILY 10/18/21 03/10/22 celecoxib 200 mg capsule 1 cap PO DAILY PRN Pain 10/18/21 10/18/21 cholecalciferol (vitamin D3) 25 1 cap PO DAILY 10/18/21 03/10/22 mcg (1,000 unit) capsule (Vitamin D3) cyclobenzaprine 10 mg tablet 1 tab PO Q8H PRN muscle spasm 10/18/21 10/18/21 fluticasone propionate 220 1 puff PO BID 10/18/21 03/10/22 mcg/actuation HFA aerosol inhaler (Flovent HFA) fluticasone propionate 50 2 spray intranasal DAILY 10/18/21 03/10/22 mcg/actuation nasal spray,suspension hydrochlorothiazide 12.5 mg tablet 1 tab PO DAILY 10/18/21 03/10/22 ipratropium 20 mcg-albuterol 100 1 puff PO QID 10/18/21 03/10/22 mcg/actuation mist for inhalation (Combivent Respimat) montelukast 10 mg tablet 1 tab PO QPM 10/18/21 03/10/22 naproxen 500 mg tablet 1 tab PO BID PRN pain 10/18/21 10/18/21 Previous Rx's Medication Instructions Recorded prednisone 20 mg tablet 40 mg (2 x 20 mg) PO DAILY #8 tabs 10/19/21 quetiapine 25 mg tablet (Seroquel) 12.5 mg (1/2 x 25 mg) PO BID PRN 03/22/22 Agitation/aggression #30 tabs quetiapine 25 mg tablet (Seroquel) 25 mg PO BEDTIME #30 tabs 03/22/22 albuterol sulfate 90 mcg/actuation 3 inh inhalation Q20M PRN 05/24/23 aerosol inhaler shortness of breath or wheezing #6.7 grams prednisone 20 mg tablet 20 mg PO DAILY 5 days #5 tabs 05/24/23 Allergies Allergy/AdvReac Type Severity Reaction Status Date / Time No Known Allergies Allergy Unknown UNKNOWN Verified 09/16/21 20:25 [NO KNOWN ALLERGIES] Review of Systems 2 Review of Systems: Constitutional: No fever, chills, fatigue, night sweats, weight changes ENT/Mouth: No ear pain, hearing loss, nasal congestion, sinus pain, rhinorrhea, sore throat Eyes: No eye pain, swelling, redness, vision changes, discharge Cardio: No chest pain, palpitations, ANDERSON, orthopnea, peripheral edema Pulm: +SOB, No cough, sputum, wheezing, dyspnea, hemoptysis GI: No nausea, vomiting, hematemesis, abdominal pain, diarrhea, constipation, hematochezia, melena : No irregular bleeding, dysuria, frequency, urgency, hesitancy, hematuria, flank pain, urinary flow changes, urinary incontinence or retention MSK: No back pain, neck pain, joint pain, myalgias, +knee pain Skin: No lesions, rashes Neuro: No weakness, numbness, paresthesias, LOC, dizziness, headache All other systems reviewed and are negative. [facility] Past Medical History Attestation statement: The following information was validated with the patient. Source: old records reviewed and nursing notes reviewed Medical History Anasarca COVID-19 COPD (chronic obstructive pulmonary disease) Allergic rhinitis Bilateral primary osteoarthritis of knee Hyperlipidemia Hypertension High cholesterol Prostate CA COPD (chronic obstructive pulmonary disease) Asthma Varicose veins of right lower extremity with inflammation Surgical History No pertinent past surgical history Family History Family History Other No family history of coronary artery disease Social History Social History Household Members: None Housing: Condominium Do you presently have visiting nurse or other home services: Yes (meghna - dtr and son are EVIDENCE SPECIALIST's) Alcohol intake: current Alcohol intake frequency: a few times a week Patient Tobacco Use Status: Never used Tobacco Smoked in Last 30 Days: No Second Hand Smoke Exposure: No Use of substances other than those prescribed or required for medical reasons: No Advance Directives: Yes Advance Directives on File: Yes Advance Directives Date on File: 03/09/22 service: No Current occupational status: retired and disabled Current occupation: right handed Physical Exam 2 Vital Signs: Vital Signs: Last Vital Signs Temp 98.2 F 05/24/23 16:12 Pulse 90 05/24/23 16:12 Resp 20 05/24/23 16:12 BP 138/57 L 05/24/23 16:12 Pulse Ox 96 05/24/23 16:12 O2 Del Method Room Air 05/24/23 16:12 BMI result Body Mass Index 31.6 Hypertensive to 156/66, vitals otherwise WNL. Satting 95 on room air. Const: Other: Nontoxic appearing General: cooperative, comfortable, no acute distress, alert and awake O rientation/consciousness: patient oriented x3 Limitations: no limitations Eyes: General: appearance normal, both eyes and all related structures C onjunctivae: conjunctivae normal Sclerae: sclerae normal Pupils: Equal, round and reactive pupils present Neck: Neck: Yes normal visual inspection, Yes full ROM, Yes no lymphadenopathy and Yes no JVD Chest: Chest palpation & inspection: normal inspection of the chest, normal palpation of entire chest wall, no crepitus and no tenderness Resp: Other: + minimal expiratory wheezes bilaterally Effort & Inspection: normal respiratory effort and able to speak in complete sentences Auscultation: clear to auscultation bilaterally Cardio: Jugular venous distension: no JVD Rate: regular rate Rhythm: r egular rhythm Peripheral pulses: Peripheral pulses 2+ throughout GI: Inspection: Yes normal to inspection Palpation (GI): Soft to palpation and nontender Skin: General skin exam: no rashes or lesions noted Neuro: General: patient oriented x3, gait normal and moves all extremities Cranial nerves: Yes CN's II-XII intact bilaterally and Yes Equal, round and reactive pupils present Extrem: Other: + mild joint effusion noted to left knee . No overlying ecchymosis or areas of cellulitis. No warmth or pointing. No palpable fluctuance. Mildly tender to palpation anteriorly. Full ROM intact to left knee. Flexion of left knee and this is pain. 2+ PT and DP pulses to left lower extremity. Course Course Course Narrative: 1500 -- Slight leukocytosis to 11.2. H&H stable. Chemistry without acute electrolyte abnormality requiring intervention. Initial troponin detectable at 13.3. Repeat trop flat at 10.5 > no concern for ACS. BNP WNL. Negative for COVID/influenza. 1600 -- On re-evaluation, patient reports he is feeling much better after albuterol and Solu-Medrol treatment. Lungs are CTA bilaterally without wheezes or rhonchi. He is resting comfortably in bed. I informed him of work up results. There is a stable 7mm calcified lung nodule to right lung base, stable since CXR 1 mo ago. X-ray of left knee shows large-sized joint effusion with no identifiable fracture. I advised him that he needs to follow up with ortho outpatient as he may require MRI to further classify injury. Referral has been provided. Esau bandage placed for compression and patient educated on RICE therapy. I am unable to assess gait in ED as he typically ambulates with scooter. Does not ambulate independently at baseline. > patient feels comfortable being discharged home and is declining PT/CM consult at this time. > he has remained stable during ED visit today. Patient has remained stable throughout ED visit today. Discussed strict return precautions. All questions answered at this time. Patient is agreeable with disposition and stable for discharge. Medications Administered Discontinued Medications Generic Name Dose Route Start Last Admin Trade Name Sawq PRN Reason Stop Dose Admin Acetaminophen 975 mg 05/24/23 12:38 05/24/23 13:14 Acetaminophen 325 Mg Tablet PO 05/24/23 12:39 975 mg ONCE ONE Administration Albuterol/Ipratropium 3 ml 05/24/23 12:34 05/24/23 12:37 Albuterol/Iprat 2.5/0.5mg 3 Ml Ampul.Neb INHALE 05/24/23 12:35 3 ml ONCE ONE Administration Methylprednisolone Sodium Succinate 80 mg 05/24/23 13:09 05/24/23 13:43 Methylprednisolone Sod Succ 125 Mg/2 Ml Vial IVPUSH 05/24/23 13:10 80 mg ONCE ONE Administration Medical Decision Making Medical Decision Making [facility] Narrative: Patient noted to be hypertensive to 152/70, vitals otherwise WNL. He is nontoxic-appearing and in no acute distress. RRR. No JVD or peripheral edema. Lungs with bilateral expiratory wheezes. No rhonchi. There is mild joint effusion noted to left knee. No overlying ecchymosis or areas of cellulitis. No warmth or pointing. No palpable fluctuance. Mildly tender to palpation anteriorly. Full ROM intact to left knee. Flexion of left knee and this is pain. 2+ PT and DP pulses to left lower extremity. NV intact distally. Clinical concern for acute on chronic asthma, asthma exacerbation, COPD, COPD exacerbation, pneumonia, arrhythmia, electrolyte abnormality, anemia, costochondritis, pleuritis. Unlikely ACS, pulmonary embolism, pleural effusion, dissection. Concern for knee fracture, knee sprain, knee strain, osteoarthritis. Unlikely dislocation, gout, septic arthritis, compartment syndrome, NV compromise. Plan for basic labs, chest x-ray, knee x-ray, COVID/flu swabs and re-evaluation Differential Diagnosis Differential Diagnoses: The differential diagnosis associated with the presentation includes As above Admission/Observation Consideration of admission/observation: Escalation of care including admission/observation considered In this 83 yo with acute asthma exacerbation, admission was considered. Lab Data MDM Lab Attestation statement: I reviewed the patient's lab results. As above. 05/24/23 11:55 05/24/23 11:54 Labs: Lab Results 05/24/23 05/24/23 05/24/23 Range/Units 11:54 11:55 15:14 WBC 11.2 H (4.8-10.8) X10*3/uL RBC 4.70 (4.60-5.80) X10*6/uL Hgb 14.8 (14.0-18.0) g/dl Hct 41.5 L (42.0-52.0) % MCV 88.3 (80.0-98.0) fL MCH 31.5 (27.0-33.0) pg MCHC 35.7 (31.0-36.0) g/dl RDW 13.2 (11.0-16.0) % Plt Count 245 (160-400) X10*3/uL MPV 10.4 (9.4-12.4) fL Immature Gran % (Auto) 0.3 (0.0-0.4) % Neut % (Auto) 81.7 H (45-73) % Lymph % (Auto) 12.4 L (20-40) % Brewster % (Auto) 3.0 (2-11) % Eos % (Auto) 2.2 (0-4) % Baso % (Auto) 0.4 (0-2) % Lymph # (Auto) 1.4 (1.2-4.9) X10*3/uL Brewster # (Auto) 0.3 (0.1-1.2) X10*3/uL Eos # (Auto) 0.3 (0.0-0.4) X10*3/uL Baso # (Auto) 0.0 (0.0-0.2) X10*3/uL Abs Immat Gran (auto) 0.03 (0.00-0.03) X10*3/uL Absolute Neuts (auto) 9.2 H (2.0-8.3) x10*3/uL Absolute Nucleated RBC 0.000 (0.0-0.012) X10*3/uL Nucleated RBC % (auto) 0.0 (0.0-0.2) /100WBC Sodium 137 (135-145) mmol/L Potassium 3.7 (3.3-5.1) mmol/L Chloride 103 (96-108) mmol/L Carbon Dioxide 26 (22-29) mmol/L Anion Gap 12 (12-20) BUN 17 H (9-16) mg/dL Creatinine 0.90 (0.5-1.4) mg/dL Estim Creat Clear Calc 64.9 Estimated GFR > 60 Random Glucose 146 H (60-115) mg/dL Calcium 9.1 (8.4-10.2) mg/dL Troponin I High Sens 13.3 10.5 (<3.5-35.0) ng/L B-Natriuretic Peptide 37 (<100) pg/mL COVID-19 (ARLETH) Negative (Negative) COVID-19 Clin Com See Note Influenza Type A (DAVID) Negative (Negative) Influenza Type B (DAVID) Negative (Negative) Influenza A & B Note See Note Independent Interpretation I performed an independent interpretation of an: EKG and Plain X-Ray Interpretation: EKG shows normal sinus rhythm with a rate of 76 beats per minute, QT 356, no acute ischemic changes or ST elevations. I personally reviewed CXR and agree with radiologist's interpretation. I personally reviewed x-ray left knee and agree with radiologist's interpretation. Radiology Impression Discussion of test interpretation with radiology: I have reviewed the radiologist's reading. Radiologist Impression: XR chest 1V IMPRESSION: Unremarkable chest exam. XR knee LT 2V IMPRESSION: Large suprapatellar effusion. Interval progression of advanced degenerative changes in the knee. MRI recommended for further evaluation if there is clinical concern for fracture or other pathology. This study was presented today May 24, 2023 at 2:15 PM for interpretation. Stat results provided at this time as requested by referring provider Independent Historian Clinical information obtained from an independent historian. History obtained from or confirmed by: EMS External Record Review External record reviewed: Inpatient record, Office record, Outpatient record, Prior outpatient labs, Prior outpatient radiology, Primary care record and Outside ED record Prescription Management I considered prescription management with: Pain Medication and Other (steroid) Chronic Conditions Patient?s care impacted by: Other (Asthma, COPD) Social Determinants Patient?s care significantly limited by Social Determinants of Health including: Other Social Determinant of Health Procedures Orthopedic Splinting/Casting Injury #1: Side: left Lower Extremity Injury Location: knee Lower Extremity Immobilizer: Esau wrap Critical Care Time Critical Care Time Critical Care Time: No Discharge Plan Discharge Clinical Impression: Asthma exacerbation in COPD, Effusion of left knee, Incidental lung nodule, > 3mm and < 8mm Patient Disposition: Home, Self-Care Instructions: Asthma (ED), COPD (Chronic Obstructive Pulmonary Disease) (ED) Additional Instructions: You were evaluated in the ED today for difficulty breathing and left knee pain. Your labs today are reassuring. Your EKG was normal. Your chest x-ray shows stable 7mm calcified lung nodule to your right lung base. Please follow up with PCP or hoop punch and coiler operator regarding this nodule. You likely had an asthma exacerbation. Albuterol inhaler has been sent to your pharmacy. Take 3 puffs every 20 minutes as needed if you feel short of breath or start wheezing. If you use this numerous times without improvement in her breathing, please come to the emergency department as this may increase your heart rate. Prednisone as a steroid that has been sent to your pharmacy. Take this once a day for the next 5 days. In the case of an emergency call 911. The x-ray of your left knee shows swelling of the knee, no identifiable fracture. Please follow-up with either your PCP or an patient transition specialist for further management as this may require MRI if symptoms persist. A referral to an orthopedic doctor has been provided to you. You can call them to schedule an appointment. They will not call you. [facility] orthopedic specialists: [phone] Lo evaluaron hoy en el servicio de urgencias por dificultad para respirar y dolor en la rodilla izquierda. Dulce Maria an?lisis de hoy son tranquilizadores. Ivory electrocardiograma fue normal. Ivory radiograf?a de t?rax fue normal. Probablemente haya tenido michael exacerbaci?n del asma. El inhalador de albuterol nolasco sido enviado a ivory farmacia. Realice 3 inhalaciones cada 20 minutos seg?n sea necesario si siente dificultad para respirar o comienza a tener sibilancias. Si usa esto varias veces sin mejorar ivory respiraci?n, acuda al departamento de emergencias, ya que esto puede aumentar ivory frecuencia card?faye. Prednisona сергей esteroide que nolasco sido enviada a ivory farmacia. T?martell michael vez al d?a alejandra los pr?ximos 5 d?as. En jose alfredo de emergencia llame al 911. La radiograf?a de ivory rodilla izquierda muestra hinchaz?n de la rodilla, ninguna fractura identificable. Jim un seguimiento con ivory PCP o con un especialista en ortopedia para un tratamiento adicional, ya que esto puede requerir michael resonancia magn?kevan si los s?ntomas persisten. Se le nolasco proporcionado michael derivaci?n a un m?dico ortop?dico. Puede llamarlos para programar michael loc. No te llamar?n. Especialistas en ortopedia de [facility]: [phone] Prescriptions: New albuterol sulfate 90 mcg/actuation HFA aerosol inhaler 3 inh inhalation Q20M PRN (Reason: shortness of breath or wheezing) Qty: 6.7 0RF Rx Instructions: for up to 3 doses prednisone 20 mg tablet 20 mg PO DAILY 5 Days Qty: 5 0RF No Action celecoxib 200 mg capsule 1 cap PO DAILY PRN (Reason: Pain) cyclobenzaprine 10 mg tablet 1 tab PO Q8H PRN (Reason: muscle spasm) atorvastatin 20 mg tablet 1 tab PO DAILY albuterol sulfate 2.5 mg /3 mL (0.083 %) solution for nebulization 1 amp inhalation Q6H PRN (Reason: wheezing) amlodipine 5 mg tablet 1 tab PO DAILY aspirin 81 mg tablet,delayed release (DR/EC) 1 tab PO DAILY acetaminophen 650 mg tablet extended release 2 tab PO Q8H PRN (Reason: Pain) montelukast 10 mg tablet 1 tab PO QPM fluticasone propionate [Flovent HFA] 220 mcg/actuation HFA aerosol inhaler 1 puff PO BID albuterol sulfate [Ventolin HFA] 90 mcg/actuation HFA aerosol inhaler 2 puff PO Q4-6H PRN (Reason: Allergic Reaction) fluticasone propionate 50 mcg/actuation spray,suspension 2 spray intranasal DAILY naproxen 500 mg tablet 1 tab PO BID PRN (Reason: pain) cholecalciferol (vitamin D3) [Vitamin D3] 25 mcg (1,000 unit) capsule 1 cap PO DAILY hydrochlorothiazide 12.5 mg tablet 1 tab PO DAILY Combivent Respimat 20-100 mcg/actuation mist 1 puff PO QID prednisone 20 mg tablet 40 mg PO DAILY Qty: 8 0RF quetiapine [Seroquel] 25 mg tablet 25 mg PO BEDTIME Qty: 30 0RF quetiapine [Seroquel] 25 mg tablet 12.5 mg PO BID PRN (Reason: Agitation/aggression) Qty: 30 0RF Rx Instructions: You may get 12.5-25 mg twice daily as needed for agitation Referrals: [facility] Orthopedic Surgeons [Provider Group] Interventions: ED Discharge Assessment Last Done: 05/24/23 17:43 Discharge Date/Time: 05/24/23 17:44 Print Language: Romanian
[2023-05-24 11:59] LABS: MANUAL DIFF FLAG NO
[2023-05-24 12:01] LABS: Basophils Percent Auto 0.4 % (0-2); Eosinophils Absolute Auto 0.3 X10*3/uL (0.0-0.4); Eosinophils Percent Auto 2.2 % (0-4); Hematocrit 41.5 % (42.0-52.0); Hemoglobin 14.8 g/dl (14.0-18.0); Imm Gran Abs Auto 0.03 X10*3/uL (0.00-0.03); Imm Gran Pct Auto 0.3 % (0.0-0.4); Lymphocytes Absolute Auto 1.4 X10*3/uL (1.2-4.9); Lymphocytes Percent Auto 12.4 % (20-40); Mean Corpuscular HGB Conc 35.7 g/dl (31.0-36.0); Mean Corpuscular Hemoglobin 31.5 pg (27.0-33.0); Mean Corpuscular Volume 88.3 fL (80.0-98.0); Mean Platelet Volume 10.4 fL (9.4-12.4); Monocytes Absolute Auto 0.3 X10*3/uL (0.1-1.2); Neutrophils Absolute Auto 9.2 x10*3/uL (2.0-8.3); Neutrophils Percent Auto 81.7 % (45-73); Platelet Count 245 X10*3/uL (160-400); Red Cell Distribution Width 13.2 % (11.0-16.0); White Blood Count 11.2 X10*3/uL (4.8-10.8)
[2023-05-24 12:13] LABS: Anion Gap 12 (12-20); Blood Urea Nitrogen 17 mg/dL (9-16); Calcium 9.1 mg/dL (8.4-10.2); Carbon Dioxide 26 mmol/L (22-29); Chloride 103 mmol/L (96-108); Creatinine Clr Calc Pharmacy 64.9; Estimated Glomerular Filt Rate > 60; Glucose Random 146 mg/dL (60-115); Potassium 3.7 mmol/L (3.3-5.1); Sodium 137 mmol/L (135-145)
[2023-05-24 12:20] LABS: B Type Natriuretic Peptide 37 pg/mL (<100)
[2023-05-24 12:21] LABS: Troponin-I High Sensitivity 13.3 ng/L (<3.5-35.0)
[2023-05-24 12:29] LABS: COVID-19 Test Negative (Negative); IDNOW Serial# 08D9AD1C; IDNOW Serial# 9DB6401D; Influenza A Negative (Negative); Influenza B2 Negative (Negative)
[2023-05-24] MEDS: Albuterol/Iprat 2.5/0.5MG 3 ML AMPUL.NEB INHALE (12:37)
[2023-05-24 12:38] VITALS: PULSE 76; RESP 25; O2SAT 97
[2023-05-24] MEDS: Acetaminophen 325 MG TABLET 975 MG PO (13:14)
--- NOTE | 2023-05-24 13:16 | PC.NURSE ---
Pt reports pain is 7/10, medicated per MAR for pain. Pt taken to XRAY.
[2023-05-24] MEDS: methylPREDNISolone Sod Succ 125 MG/2 ML VIAL 80 MG IVPUSH (13:43)
[2023-05-24 13:45] VITALS: BP 157/66; PULSE 93; RESP 20; TEMP 36.5; O2SAT 95
[2023-05-24 15:47] LABS: Troponin-I High Sensitivity 10.5 ng/L (<3.5-35.0)
[2023-05-24 16:12] VITALS: BP 138/57; PULSE 90; RESP 20; TEMP 36.8; O2SAT 96
--- NOTE | 2023-05-24 16:17 | PC.NURSE ---
Pt resting in bed, denies pain. Pts left knee wrapped with forrest bandage.
--- NOTE | 2023-05-24 16:55 | MHC.EDTECH ---
Patient inc therefore patient changed and repositioned
== END 2023-05-24 17:44 | disposition home or self-care (01) ==
PROVIDERS: Physician Assistant Medical; Emergency Provider Emergency Medicine Emergency Medical Services
DX: S89.92XA Unspecified injury of left lower leg, initial encounter (principal); R91.1 Solitary pulmonary nodule; M25.462 Effusion, left knee; J45.901 Unspecified asthma with (acute) exacerbation; R06.02 Shortness of breath; J44.9 Chronic obstructive pulmonary disease, unspecified; M25.562 Pain in left knee; W05.1XXA Fall from non-moving nonmotorized scooter, initial encounter; Y93.9 Activity, unspecified; Y92.9 Unspecified place or not applicable; Y99.8 Other external cause status; Z11.52 Encounter for screening for COVID-19; Z79.899 Other long term (current) drug therapy
CPT/HCPCS: 29505; 36415; 71045; 73560; 80048; 83880; 84484; 85025; 87502; 87635; 93005; 94640; 96374; 99284; 99285; J2930

== ENCOUNTER → 2023-05-24 11:16 | Outpatient (BNV) | payer OTHER, SELFPAY | PROVIDERS: Emergency Provider Emergency Medicine Emergency Medical Services; Visit Provider Internal Medicine Cardiovascular Disease | DX: R06.02 Shortness of breath (principal) | CPT/HCPCS: 93010 ==

== ENCOUNTER 2023-05-26 07:16 | Inpatient (IN) | payer OTHER, SELFPAY ==
--- NOTE | ~2023-05-26 | XR_ITS ---
EXAMINATION: XR KNEE, LEFT CLINICAL INFORMATION: Pain. COMPARISON: 05/24/2023, 04/02/2022. TECHNIQUE: Three views of the left knee. FINDINGS: Xzchbegv-qi-cngiom medial compartment joint space narrowing redemonstrated. Tricompartmental osteophytes. The bones are diffusely demineralized. Redemonstration of corticated ossicle lateral to the lateral femoral condyle and irregular ossicles in the soft tissues along the posterior aspect of the knee. Small suprapatellar effusion, decreased since 05/24/2023. Advanced degenerative changes in the patellofemoral compartment. XR/XR knee LT 2V IMPRESSION: Zkxzrofv-jg-dzvyio degenerative changes.
--- NOTE | ~2023-05-26 | CT_ITS ---
EXAMINATION: CT CERVICAL SPINE WITHOUT CONTRAST CLINICAL INFORMATION: Head strike. Pain COMPARISON: Prior CT of the cervical spine dated 04/24/2023. Prior CT chest 09/17/2021. TECHNIQUE: Thin section axial images with sagittal coronal reformats are obtained. This CT examination was performed using dose optimization techniques as appropriate, variously including the following: *Automated exposure control *Adjustment of mA and/or kV according to patient size (this includes techniques or standardized protocols for targeted exams where dose is matched to indication/reason for exam; i.e. extremities or head) *Use of iterative reconstruction technique DLP: 448 mGy-cm FINDINGS: Advanced degenerative changes observed C4-C5, C5-C6 and C6-C7 with anterior and posterior spurs but no significant encroachment on the spinal canal and no fracture or destructive process or alignment abnormality. Prevertebral soft tissues are normal. There is atherosclerotic calcification in the right and left common carotid bulbs. Scans through the lung apices do not reveal a tiny nodule in the right apex at 4 mm (7/291). This however is unchanged from 09/17/2021. CT/CT cervical spine wo IV con IMPRESSION: Multilevel degenerative change noted. No acute findings or fracture. Fleischner guidelines were followed.
--- NOTE | ~2023-05-26 | CT_ITS ---
EXAMINATION: CT FACIAL BONES WITHOUT CONTRAST CLINICAL INFORMATION: Right-sided facial pain after falling. Head strike COMPARISON: CT cervical spine and head same day TECHNIQUE: Thin section axial images with sagittal and coronal reformats are obtained. This CT examination was performed using dose optimization techniques as appropriate, variously including the following: *Automated exposure control *Adjustment of mA and/or kV according to patient size (this includes techniques or standardized protocols for targeted exams where dose is matched to indication/reason for exam; i.e. extremities or head) *Use of iterative reconstruction technique DLP: 455 mGy-cm FINDINGS: The mandible and zygomatic arches are intact. There does appear to be slight step off of the right nasal bone which could reflect a subtle fracture. There is slight fragmentation along the anterior maxillary spine which could reflect a subtle fracture. There is moderate bowing of the nasal septum towards the right. The orbital rims are intact. The right and left TMJs are not dislocated. There is slight lobular mucosal thickening in the right frontal sinus and left maxillary sinus with moderate mucosal thickening in the right maxillary sinus. There is slight narrowing of the right and left infundibulum on the basis of mucoperiosteal thickening. CT/CT facial bones wo IV con IMPRESSION: Fractured nasal bone and anterior maxillary spine.
--- NOTE | ~2023-05-26 | CT_ITS ---
EXAMINATION: CT HEAD WITHOUT CONTRAST CLINICAL INFORMATION: Right-sided facial pain after a fall COMPARISON: 04/24/2023 TECHNIQUE: Contiguous axial imaging was performed from the skull base to vertex without intravenous administration of contrast. This CT examination was performed using dose optimization techniques as appropriate, variously including the following: *Automated exposure control *Adjustment of mA and/or kV according to patient size (this includes techniques or standardized protocols for targeted exams where dose is matched to indication/reason for exam; i.e. extremities or head) *Use of iterative reconstruction technique DLP: 745 mGy-cm FINDINGS: There is prominence to the sulci and ventricles and moderate deep white matter gliosis but no evidence for intra or extra-axial fluid collection or hemorrhage, mass, or mass effect. Slight increased attenuation within the vessels of the [place] may be due to the patient's hydration status. Calvarium is intact. There may be a very slight step off of the right nasal bone indicative of a fracture. Please refer to the facial bone CT which will be performed and dictated separately. Fluid versus mucoperiosteal thickening in the right maxillary sinus noted. Mucoperiosteal thickening observed within the ethmoid sinuses. CT/CT head/brain wo IV con IMPRESSION: Chronic changes noted but no acute calvarial fracture or intracranial hemorrhage. Query tiny nasal bone fracture.
--- NOTE | ~2023-05-26 | XR_ITS ---
EXAMINATION: XR RIBS, RIGHT CLINICAL INFORMATION: Right rib pain COMPARISON: Chest radiograph dated 05/24/2023 TECHNIQUE: 3 views of the right ribs were obtained. FINDINGS: 7 mm calcified granuloma right base. Lungs otherwise clear. Slightly elevated right hemidiaphragm. No pneumothorax. Heart and pulmonary vessels normal. No definite rib fractures are observed. Visualized osseous structures are intact. XR/XR ribs RT min 3V w CXR1V IMPRESSION: Unremarkable
--- NOTE | ~2023-05-26 | XR_ITS ---
EXAMINATION: XR CHEST CLINICAL INFORMATION: Dyspnea. COMPARISON: 06/11/2023. TECHNIQUE: Frontal view of the chest was obtained. FINDINGS: The cardiomediastinal silhouette is stable. There is atelectatic change and/or scarring at the lung bases with elevation of the right hemidiaphragm. The lungs are otherwise clear. There are no significant pleural effusions. The bony structures and soft tissues are unremarkable. XR/XR chest 1V IMPRESSION: Atelectatic change and/or scarring at the lung bases with elevation of the right hemidiaphragm. No other significant abnormality identified.
--- NOTE | ~2023-05-26 | XR_ITS ---
EXAMINATION: XR CHEST CLINICAL INFORMATION: Cough COMPARISON: 05/26/2023 TECHNIQUE: 2 views of the chest were obtained. FINDINGS: No significant abnormality is noted involving the heart, lungs, mediastinum, bony thorax or soft tissues. XR/XR chest 2V IMPRESSION: Unremarkable examination.
[2023-05-26 07:32] VITALS: BP 124/78; BP 149/64; PULSE 81; PULSE 91; RESP 20; TEMP 36.4; O2SAT 98; O2SAT 99; BMI 29.2
--- NOTE | 2023-05-26 07:44 | ECG_ITS ---
Test Reason : Fall Blood Pressure : / mmHG Vent. Rate : 072 BPM Atrial Rate : 072 BPM P-R Int : 142 ms QRS Dur : 096 ms QT Int : 358 ms P-R-T Axes : 035 060 121 degrees QTc Int : 392 ms Sinus rhythm with Premature supraventricular complexes Nonspecific ST and T wave abnormality Abnormal ECG When compared with ECG of 24-MAY-2023 11:16, Premature supraventricular complexes are now Present Referred By: Generic ED Physician Electronically Signed By:ALLIE BENITEZ MD
[2023-05-26 08:06] VITALS: BP 151/56; PULSE 75; RESP 22; TEMP 36.6; O2SAT 97
--- NOTE | 2023-05-26 08:19 | ED.FALL ---
HPI - Fall General Chief Complaint: Fall Stated Complaint: FALL,HIT HEAD,FROM HOME PER EMS Time Seen by Provider: 05/26/23 08:18 Source: patient, EMS, RN notes reviewed and bilingual operator Mode of arrival: EMS Limitations: language barrier History of Present Illness HPI Narrative: 83 year old Kosovan-speaking male with pmhx significant for COPD, asthma, mild cognitive disorder, HDL, HTN, prostate cancer, osteoarthritis of bilateral knees presents to the ED today from home via EMS. Patient states that while he was lying in bed he turned over to reach for his medications on his nightstand last night and he accidentally fell out of his bed striking the right forehead on his nightstand. He denies loss of consciousness but reports that he stayed on the ground for 1 hour. He denies any headaches, blurred vision, dizziness, chest pain, shortness of breath, abdominal pain, nausea, vomiting or diarrhea. He states that he has had increased falls, which he attributes to having a COVID infection several months ago. He endorses weakness in his leg which causes him to be unsteady on his feet. He is willing to meet with Physical therapy and case management as he lives home alone. He is not on anticoagulants MD complaint: fall Onset (ago): day(s) Fall from: out of bed Fall witnessed: no Place fall occurred: home Loss of consciousness: none Prolonged down time: unclear Symptoms prior to fall: none Location of injury: head and face Related Data Home Medications Medication Instructions Recorded Confirmed acetaminophen 650 mg 2 tab PO Q8H PRN Pain 10/18/21 03/10/22 tablet,extended release albuterol sulfate 2.5 mg/3 mL 1 amp inhalation Q6H PRN wheezing 10/18/21 03/10/22 (0.083 %) solution for nebulization albuterol sulfate 90 mcg/actuation 2 puff PO Q4-6H PRN Allergic 10/18/21 03/10/22 aerosol inhaler (Ventolin HFA) Reaction amlodipine 5 mg tablet 1 tab PO DAILY 10/18/21 03/10/22 aspirin 81 mg tablet,delayed 1 tab PO DAILY 10/18/21 03/10/22 release atorvastatin 20 mg tablet 1 tab PO DAILY 10/18/21 03/10/22 celecoxib 200 mg capsule 1 cap PO DAILY PRN Pain 10/18/21 10/18/21 cholecalciferol (vitamin D3) 25 1 cap PO DAILY 10/18/21 03/10/22 mcg (1,000 unit) capsule (Vitamin D3) cyclobenzaprine 10 mg tablet 1 tab PO Q8H PRN muscle spasm 10/18/21 10/18/21 fluticasone propionate 220 1 puff PO BID 10/18/21 03/10/22 mcg/actuation HFA aerosol inhaler (Flovent HFA) fluticasone propionate 50 2 spray intranasal DAILY 10/18/21 03/10/22 mcg/actuation nasal spray,suspension hydrochlorothiazide 12.5 mg tablet 1 tab PO DAILY 10/18/21 03/10/22 ipratropium 20 mcg-albuterol 100 1 puff PO QID 10/18/21 03/10/22 mcg/actuation mist for inhalation (Combivent Respimat) montelukast 10 mg tablet 1 tab PO QPM 10/18/21 03/10/22 naproxen 500 mg tablet 1 tab PO BID PRN pain 10/18/21 10/18/21 Previous Rx's Medication Instructions Recorded prednisone 20 mg tablet 40 mg (2 x 20 mg) PO DAILY #8 tabs 10/19/21 quetiapine 25 mg tablet (Seroquel) 12.5 mg (1/2 x 25 mg) PO BID PRN 03/22/22 Agitation/aggression #30 tabs quetiapine 25 mg tablet (Seroquel) 25 mg PO BEDTIME #30 tabs 03/22/22 albuterol sulfate 90 mcg/actuation 3 inh inhalation Q20M PRN 05/24/23 aerosol inhaler shortness of breath or wheezing #6.7 grams prednisone 20 mg tablet 20 mg PO DAILY 5 days #5 tabs 05/24/23 Allergies Allergy/AdvReac Type Severity Reaction Status Date / Time No Known Allergies Allergy Unknown UNKNOWN Verified 09/16/21 20:25 [NO KNOWN ALLERGIES] Review of Systems Review of Systems: Yes all other systems are reviewed and are negative Constitutional: Constitutional: Reports as per [facility] Past Medical History Attestation statement: The following information was validated with the patient. Medical History Anasarca COVID-19 COPD (chronic obstructive pulmonary disease) Allergic rhinitis Bilateral primary osteoarthritis of knee Hyperlipidemia Hypertension High cholesterol Prostate CA COPD (chronic obstructive pulmonary disease) Asthma Varicose veins of right lower extremity with inflammation Surgical History No pertinent past surgical history Family History Family History Other No family history of coronary artery disease Social History Social History Household Members: None [facility]: [facility] Do you presently have visiting nurse or other home services: Yes (meghna - dtr and son are CARDIOLOGY CLINICAL NURSE SPECIALIST's) Unable to assess alcohol history related to: Unknown Alcohol intake: current Alcohol intake frequency: a few times a week Patient Tobacco Use Status: Never used Tobacco Second Hand Smoke Exposure: No Use of substances other than those prescribed or required for medical reasons: No Advance Directives: Yes Advance Directives on File: Yes Advance Directives Date on File: 03/09/22 service: No Current occupational status: retired and disabled Current occupation: right handed Physical Exam Vital Signs: Vital Signs: Last Vital Signs Temp 97.1 F 05/26/23 19:04 Pulse 87 05/26/23 19:04 Resp 19 05/26/23 19:04 BP 149/74 H 05/26/23 19:04 Pulse Ox 96 05/26/23 19:04 O2 Del Method Room Air 05/26/23 19:04 O2 Flow Rate 5 05/26/23 16:00 BMI result Body Mass Index 29.2 Const: General: cooperative, comfortable and no acute distress Orientation/consciousness: patient oriented x3 Limitations: no limitations HEENT: Other: Right eyebrow with dried blood noted, tenderness palpation along the orbit, no orbital entrapment, conjunctiva is clear No septal hematoma Head: Yes normal to inspection, Yes normocephalic and Yes atraumatic Ears: hearing grossly normal bilaterally General nose exam: Normal external nose present Face and sinus: Yes normal facial exam Mouth: Normal oral and palatal mucosa present, oropharynx normal and moist mucous membranes Throat: Yes posterior oropharynx normal Eyes: General: appearance normal, both eyes and all related structures Eyelids: Yes eyelids normal Conjunctivae: conjunctivae normal Sclerae: sclerae normal Pupils: Equal, round and reactive pupils present EOM: EOMs intact bilaterally Neck: Neck: Yes normal visual inspection, Yes full ROM and Yes no lymphadenopathy Lymphatic: no lymphadenopathy noted Chest: Other: Tenderness to palpation along the right lateral ribs, with faint ecchymosis noted Chest palpation & inspection: normal inspection of the chest Resp: Effort & Inspection: normal respiratory effort and able to speak in complete sentences Auscultation: clear to auscultation bilaterally, no crackles, no rales, no rhonchi and no wheezes Cardio: Rate: regular rate Rhythm: regular rhythm Heart sounds: S1 normal heart sound present and S2 normal heart sound present GI: Other: Abdomen is soft, nontender, nondistended, no ecchymosis seen Inspection: Yes normal to inspection Skin: Other: 3-1/2 cm partial-thickness laceration noted to the right eyebrow, actively bleeding General skin exam: no rashes or lesions noted Trauma: no lacerations or abrasions Wounds: no wounds Neuro: General: patient oriented x3 and moves all extremities Cranial nerves: Yes CN's II-XII intact bilaterally and Yes Equal, round and reactive pupils present Cognition (Neuro): normal cognition Motor exam (neuro): 5/5 motor strength present throughout and Pronator motor function not present Romberg Test: Negative Extrem: General: Yes normal to inspection Right upper extremity: normal to inspection Left upper extremity: normal to inspection Right lower extremity: normal to inspection Left lower extremity: normal to inspection Course Reevaluation(s) Reevaluation #1: CPK elevated at 1599, BUN elevated at 36, patient has a history of elevated CPKs in past - will hydrate. also leukocytosis that 20k with left shift, however patient was just discharged on prednisone 2 days ago which is likely the source of his increasing leukocytosis.. X-ray unremarkable. Pending urinalysis. Slight elevation of AST, ALT within normal limits. Alk-phos within normal limits, total bili within normal limits. Will provide with IV hydration given slight rhabdomyolysis. Will await urinalysis for further determination. Serologies still pending Time: 10:04 Reevaluation #2: CT scan of the facial bones revealing fracture nasal bone and anterior maxillary spine. Discussed findings with my attending physician, there was no intervention needed at this time. Five sutures placed in right eyebrow, patient tolerated procedure well without any complications or concerns Reevaluation #3: Urine returns, unremarkable. CPK improved to 1283, will continue to administer IV fluids to improve dehydration. Patient willing to see physical therapy as well as case management as he does not feel safe at home due to frequent falls. Patient also requesting updraft, his lung sounds are clear. Will order ED bronch protocol for updraft. Patient will be placed in physician observation pending PT and case management. Time: 14:48 Medications Administered Discontinued Medications Generic Name Dose Route Start Last Admin Trade Name Karina PRN Reason Stop Dose Admin Acetaminophen 650 mg 05/26/23 14:03 05/26/23 14:39 Acetaminophen 325 Mg Tablet PO 05/26/23 14:04 650 mg ONCE ONE Administration Bacitracin 1 appl 05/26/23 14:42 05/26/23 16:39 Bacitracin Oint 0.9 Gm Packet TOPICAL 05/26/23 14:43 1 appl ONCE ONE Administration Protocol Albuterol Sulfate 2.5 mg/ 0 mg 05/26/23 15:54 05/26/23 15:56 Albuterol/Ipratropium 3 ml INHALE 05/26/23 15:55 1 dose ONCE ONE Administration Sodium Chloride 1,000 mls @ 250 mls/hr 05/26/23 10:15 05/26/23 15:00 Ns IV 05/26/23 14:14 Infused .Q4H ABDIFATAH Infusion Sodium Chloride 1,000 mls @ 999 mls/hr 05/26/23 14:48 05/26/23 17:00 Ns IV 05/26/23 15:48 Infused .Q1H1M ONE Infusion Lidocaine HCl 5 ml 05/26/23 13:29 05/26/23 13:47 Lidocaine Hcl 1 % Mpf 5 Ml Vial INFILTRATI 05/26/23 13:30 5 ml ONCE ONE Administration Procedures Laceration Laceration 1: Site: face Side (If applicable): right Size (cm): 3.5 Description: linear Depth: simple, single layer Local Anesthetic: lidocaine 1% Amount of anesthesia used (mL): 3 Pre-repair: wound explored, irrigated extensively and deep structures intact Skin layer closed with: nylon Size (cm): 5-0 Number of sutures: 5 Technique: simple, interrupted Medical Decision Making Medical Decision Making MDM Narrative: 83 year old male with pmhx significant for COPD, asthma, mild cognitive disorder, HDL, HTN, prostate cancer, osteoarthritis of bilateral knees presents to the ED today via EMS. On arrival, blood pressure 149/64, all other vital signs within normal limits. Patient is neurologically intact. Patient has crusting overlying his right eyebrow which was cleansed revealing a 3-1/2 cm partial-thickness laceration requiring sutures. Given head strike, will obtain CT head, CT facial bones and CT cervical spine. EKG, and basic labs were also ordered. He states that when he fell he was on the ground for approximately 1 hour. However he lives at home alone and uncertain whether or not he is a good historian regarding present illness. Of note, patient was also seen on May 24, 2022 after tripping yesterday while stepping out of his scooter. He does have a CARDIOLOGY CLINICAL NURSE SPECIALIST Differential Diagnosis Differential Diagnoses: The differential diagnosis associated with the presentation includes ICH, subdural hematoma, laceration, facial fracture Admission/Observation Consideration of admission/observation: Escalation of care including admission/observation considered Lab Data MDM Lab Attestation statement: I reviewed the patient's lab results. see course comment 05/26/23 08:26 05/26/23 08:26 Labs: Lab Results 05/26/23 05/26/23 05/26/23 Range/Units 08:26 09:36 14:22 WBC 20.3 H (4.8-10.8) X10*3/uL RBC 4.77 (4.60-5.80) X10*6/uL Hgb 14.9 (14.0-18.0) g/dl Hct 41.6 L (42.0-52.0) % MCV 87.2 (80.0-98.0) fL MCH 31.2 (27.0-33.0) pg MCHC 35.8 (31.0-36.0) g/dl RDW 13.4 (11.0-16.0) % Plt Count 297 (160-400) X10*3/uL MPV 10.3 (9.4-12.4) fL Immature Gran % (Auto) 0.4 (0.0-0.4) % Neut % (Auto) 80.4 H (45-73) % Lymph % (Auto) 11.3 L (20-40) % Stevens % (Auto) 7.8 (2-11) % Eos % (Auto) 0.0 (0-4) % Baso % (Auto) 0.1 (0-2) % Lymph # (Auto) 2.3 (1.2-4.9) X10*3/uL Stevens # (Auto) 1.6 H (0.1-1.2) X10*3/uL Eos # (Auto) 0.0 (0.0-0.4) X10*3/uL Baso # (Auto) 0.0 (0.0-0.2) X10*3/uL Abs Immat Gran (auto) 0.08 H (0.00-0.03) X10*3/uL Absolute Neuts (auto) 16.3 H (2.0-8.3) x10*3/uL Absolute Nucleated RBC 0.000 (0.0-0.012) X10*3/uL Nucleated RBC % (auto) 0.0 (0.0-0.2) /100WBC Smear Tech's Comments VERIFIED Sodium 141 (135-145) mmol/L Potassium 4.3 (3.3-5.1) mmol/L Chloride 104 (96-108) mmol/L Carbon Dioxide 28 (22-29) mmol/L Anion Gap 13 (12-20) BUN 36 H (9-16) mg/dL Creatinine 1.10 (0.5-1.4) mg/dL Estim Creat Clear Calc 54.6 Estimated GFR > 60 Random Glucose 117 H (60-115) mg/dL Calcium 9.3 (8.4-10.2) mg/dL Total Bilirubin 0.7 (0.0-1.0) mg/dL AST 72 H (5-37) U/L ALT 38 (0-40) U/L Alkaline Phosphatase 96 (39-117) U/L Total Creatine Kinase 1599 H 1283 H (38-174) U/L Total Protein 7.7 (6.5-8.0) g/dL Albumin 3.9 (3.5-5.0) g/dL COVID-19 (ARLETH) Negative (Negative) COVID-19 Clin Com See Note Influenza Type A (DAVID) Negative (Negative) Influenza Type B (DAVID) Negative (Negative) Influenza A & B Note See Note Radiology Impression Discussion of test interpretation with radiology: I have reviewed the radiologist's reading. Radiologist Impression: OMPARISON: Chest radiograph dated 05/24/2023 TECHNIQUE: 3 views of the right ribs were obtained. FINDINGS: 7 mm calcified granuloma right base. Lungs otherwise clear. Slightly elevated right hemidiaphragm. No pneumothorax. Heart and pulmonary vessels normal. No definite rib fractures are observed. Visualized osseous structures are intact. XR/XR ribs RT min 3V w CXR1V IMPRESSION: Unremarkable Dictated By: Ed Graves MD [address] [id number] [address] Scan Report Signed Patient: Luan Son MR#: [id number] : 1940 Acct:[id number] Age/Sex: 83 / M ADM Date: 05/26/23 Loc: HO.ED Attending Dr: Ordering Physician: Milagro Parrish Date of Service: 05/26/23 Procedure(s): CT head/brain wo IV con Accession Number(s): [id number] cc: Rayne Brizuela MD; Milagro Parrish~ EXAMINATION: CT HEAD WITHOUT CONTRAST CLINICAL INFORMATION: Right-sided facial pain after a fall COMPARISON: 04/24/2023 TECHNIQUE: Contiguous axial imaging was performed from the skull base to vertex without intravenous administration of contrast. This CT examination was performed using dose optimization techniques as appropriate, variously including the following: *Automated exposure control *Adjustment of mA and/or kV according to patient size (this includes techniques or standardized protocols for targeted exams where dose is matched to indication/reason for exam; i.e. extremities or head) *Use of iterative reconstruction technique DLP: 745 mGy-cm FINDINGS: There is prominence to the sulci and ventricles and moderate deep white matter gliosis but no evidence for intra or extra-axial fluid collection or hemorrhage, mass, or mass effect. Slight increased attenuation within the vessels of the [place] may be due to the patient's hydration status. Calvarium is intact. There may be a very slight step off of the right nasal bone indicative of a fracture. Please refer to the facial bone CT which will be performed and dictated separately. Fluid versus mucoperiosteal thickening in the right maxillary sinus noted. Mucoperiosteal thickening observed within the ethmoid sinuses. CT/CT head/brain wo IV con IMPRESSION: Chronic changes noted but no acute calvarial fracture or intracranial hemorrhage. Query tiny nasal bone fracture. [address] [address] [address] Scan Report Signed Patient: Luan Son MR#: [id number] : 1940 Acct:[id number] Age/Sex: 83 / M ADM Date: 05/26/23 Loc: HO.ED Attending Dr: Ordering Physician: Milagro Parrish Date of Service: 05/26/23 Procedure(s): CT facial bones wo IV con Accession Number(s): [id number] cc: Rayne Brizuela MD; Milagro Parrish~ EXAMINATION: CT FACIAL BONES WITHOUT CONTRAST CLINICAL INFORMATION: Right-sided facial pain after falling. Head strike COMPARISON: CT cervical spine and head same day TECHNIQUE: Thin section axial images with sagittal and coronal reformats are obtained. This CT examination was performed using dose optimization techniques as appropriate, variously including the following: *Automated exposure control *Adjustment of mA and/or kV according to patient size (this includes techniques or standardized protocols for targeted exams where dose is matched to indication/reason for exam; i.e. extremities or head) *Use of iterative reconstruction technique DLP: 455 mGy-cm FINDINGS: The mandible and zygomatic arches are intact. There does appear to be slight step off of the right nasal bone which could reflect a subtle fracture. There is slight fragmentation along the anterior maxillary spine which could reflect a subtle fracture. There is moderate bowing of the nasal septum towards the right. The orbital rims are intact. The right and left TMJs are not dislocated. There is slight lobular mucosal thickening in the right frontal sinus and left maxillary sinus with moderate mucosal thickening in the right maxillary sinus. There is slight narrowing of the right and left infundibulum on the basis of mucoperiosteal thickening. CT/CT facial bones wo IV con IMPRESSION: Fractured nasal bone and anterior maxillary spine. Dictated By: Ed Graves MD EXAMINATION: CT CERVICAL SPINE WITHOUT CONTRAST CLINICAL INFORMATION: Head strike. Pain COMPARISON: Prior CT of the cervical spine dated 04/24/2023. Prior CT chest 09/17/2021. TECHNIQUE: Thin section axial images with sagittal coronal reformats are obtained. This CT examination was performed using dose optimization techniques as appropriate, variously including the following: *Automated exposure control *Adjustment of mA and/or kV according to patient size (this includes techniques or standardized protocols for targeted exams where dose is matched to indication/reason for exam; i.e. extremities or head) *Use of iterative reconstruction technique DLP: 448 mGy-cm FINDINGS: Advanced degenerative changes observed C4-C5, C5-C6 and C6-C7 with anterior and posterior spurs but no significant encroachment on the spinal canal and no fracture or destructive process or alignment abnormality. Prevertebral soft tissues are normal. There is atherosclerotic calcification in the right and left common carotid bulbs. Scans through the lung apices do not reveal a tiny nodule in the right apex at 4 mm (7/291). This however is unchanged from 09/17/2021. CT/CT cervical spine wo IV con IMPRESSION: Multilevel degenerative change noted. No acute findings or fracture. Fleischner guidelines were followed. Dictated By: Ed Graves MD Discharge Plan Discharge Clinical Impression: Fall, Laceration of face, Dehydration, Fracture of nasal bone, Maxillary fracture Patient Disposition: Still a Patient Additional Instructions: Please have your 5 sutures removed in 5 days. Prescriptions: No Action celecoxib 200 mg capsule 1 cap PO DAILY PRN (Reason: Pain) cyclobenzaprine 10 mg tablet 1 tab PO Q8H PRN (Reason: muscle spasm) atorvastatin 20 mg tablet 1 tab PO DAILY albuterol sulfate 2.5 mg /3 mL (0.083 %) solution for nebulization 1 amp inhalation Q6H PRN (Reason: wheezing) amlodipine 5 mg tablet 1 tab PO DAILY aspirin 81 mg tablet,delayed release (DR/EC) 1 tab PO DAILY acetaminophen 650 mg tablet extended release 2 tab PO Q8H PRN (Reason: Pain) montelukast 10 mg tablet 1 tab PO QPM fluticasone propionate [Flovent HFA] 220 mcg/actuation HFA aerosol inhaler 1 puff PO BID albuterol sulfate [Ventolin HFA] 90 mcg/actuation HFA aerosol inhaler 2 puff PO Q4-6H PRN (Reason: Allergic Reaction) fluticasone propionate 50 mcg/actuation spray,suspension 2 spray intranasal DAILY naproxen 500 mg tablet 1 tab PO BID PRN (Reason: pain) cholecalciferol (vitamin D3) [Vitamin D3] 25 mcg (1,000 unit) capsule 1 cap PO DAILY hydrochlorothiazide 12.5 mg tablet 1 tab PO DAILY Combivent Respimat 20-100 mcg/actuation mist 1 puff PO QID prednisone 20 mg tablet 40 mg PO DAILY Qty: 8 0RF quetiapine [Seroquel] 25 mg tablet 25 mg PO BEDTIME Qty: 30 0RF quetiapine [Seroquel] 25 mg tablet 12.5 mg PO BID PRN (Reason: Agitation/aggression) Qty: 30 0RF Rx Instructions: You may get 12.5-25 mg twice daily as needed for agitation albuterol sulfate 90 mcg/actuation HFA aerosol inhaler 3 inh inhalation Q20M PRN (Reason: shortness of breath or wheezing) Qty: 6.7 0RF Rx Instructions: for up to 3 doses prednisone 20 mg tablet 20 mg PO DAILY 5 Days Qty: 5 0RF
[2023-05-26 08:34] LABS: Basophils Percent Auto 0.1 % (0-2); Hematocrit 41.6 % (42.0-52.0); Hemoglobin 14.9 g/dl (14.0-18.0); Imm Gran Abs Auto 0.08 X10*3/uL (0.00-0.03); Imm Gran Pct Auto 0.4 % (0.0-0.4); Lymphocytes Absolute Auto 2.3 X10*3/uL (1.2-4.9); Lymphocytes Percent Auto 11.3 % (20-40); MANUAL DIFF FLAG SCAN; Mean Corpuscular HGB Conc 35.8 g/dl (31.0-36.0); Mean Corpuscular Hemoglobin 31.2 pg (27.0-33.0); Mean Corpuscular Volume 87.2 fL (80.0-98.0); Mean Platelet Volume 10.3 fL (9.4-12.4); Monocytes Absolute Auto 1.6 X10*3/uL (0.1-1.2); Monocytes Percent Auto 7.8 % (2-11); Neutrophils Absolute Auto 16.3 x10*3/uL (2.0-8.3); Neutrophils Percent Auto 80.4 % (45-73); Platelet Count 297 X10*3/uL (160-400); Red Blood Count 4.77 X10*6/uL (4.60-5.80); Red Cell Distribution Width 13.4 % (11.0-16.0); SCAN SMEAR FLAG 1; White Blood Count 20.3 X10*3/uL (4.8-10.8)
[2023-05-26 08:55] LABS: Alanine Aminotransferase 38 U/L (0-40); Albumin Level 3.9 g/dL (3.5-5.0); Alkaline Phosphatase 96 U/L (39-117); Anion Gap 13 (12-20); Aspartate Amino Transferase 72 U/L (5-37); Bilirubin Total 0.7 mg/dL (0.0-1.0); Blood Urea Nitrogen 36 mg/dL (9-16); Calcium 9.3 mg/dL (8.4-10.2); Carbon Dioxide 28 mmol/L (22-29); Chloride 104 mmol/L (96-108); Creatinine Clr Calc Pharmacy 54.6; Estimated Glomerular Filt Rate > 60; Glucose Random 117 mg/dL (60-115); Potassium 4.3 mmol/L (3.3-5.1); Sodium 141 mmol/L (135-145); Total Protein 7.7 g/dL (6.5-8.0)
[2023-05-26 09:05] LABS: SLIDE REVIEW VERIFIED
[2023-05-26 09:59] LABS: COVID-19 Test Negative (Negative); IDNOW Serial# 08D9AD1C
[2023-05-26 10:01] LABS: IDNOW Serial# 152EDE1D; Influenza A Negative (Negative); Influenza B2 Negative (Negative)
[2023-05-26] MEDS: 0.9 % Sodium Chloride 1,000 ML 250 ML IV (10:34)
--- NOTE | 2023-05-26 12:33 | PC.NURSE ---
patient resting quietly in bed, has iv of normal saline running 250ml/hr. patient awakens when you walk in the room and speak to him. patient encouraged to given urine sample, urinal at bedside
--- NOTE | 2023-05-26 12:58 | MHC.CM.ED ---
Patient came to the ER due to a fall. Received telephone call from Dee paniagua [facility] that patient's patient care technician instructor and family is concerned about patient remaining at home. He has experienced 9 falls in the past week and has a cognitive disorder that is getting worse. manager transport and family are requesting capacity eval to see if patient has capacity to make his own decisions and placement. Spoke with patient's daughter/HCP, Rayne via telephone. She can be reached via telephone at [phone]. Rayne verifies family is looking for capacity eval and placement. Rayne aware that placement may not be in [facility] and that capacity eval may not be available until tomorrow. Rayne verbalizes understanding. Milagro NO aware. Continue to monitor for d/c needs.
--- NOTE | 2023-05-26 13:32 | PC.NURSE ---
patient face cleaned up of dry blood with PA, patient has lac to the right eyebrow and small abrasion to forehead. patient currently states he has no pain, patient tolerated well
[2023-05-26] MEDS: Lidocaine HCl 1 % MPF 5 ML VIAL INFILTRATI (13:47)
[2023-05-26] MEDS: Acetaminophen 325 MG TABLET 650 MG PO (14:39)
[2023-05-26] MEDS: 0.9 % Sodium Chloride 1,000 ML 999 ML IV (15:25)
[2023-05-26 15:56] VITALS: PULSE 66; RESP 16; O2SAT 95
[2023-05-26] MEDS: Albuterol Sulfate 2.5 MG, Albuterol/Iprat 2.5/0.5MG 3 ML 3 ML INHALE (15:56)
[2023-05-26 16:00] VITALS: BP 125/63; PULSE 79; RESP 17; TEMP 36.5; O2SAT 96
[2023-05-26] MEDS: Bacitracin Oint 0.9 GM PACKET 1 APPL TOPICAL (16:39)
--- NOTE | 2023-05-26 17:03 | MHC.EDTECH ---
This oscillograph technician assist nurse in patient care, changing bed pads wet with urine and placing dry pads. We also boost patient up in bed and gave warm blanket.
--- NOTE | 2023-05-26 17:04 | MHC.CM.ED ---
CM received telephone call from Liz[facility] at [facility] regarding disposition ([phone]). CM returned call. Office closed. CM will need to call in the morning. Awaiting psych for capacity and PT evaluation. CM following for discharge planning.
[2023-05-26 19:04] VITALS: BP 149/74; PULSE 87; RESP 19; TEMP 36.2; O2SAT 96
--- NOTE | 2023-05-26 19:56 | MHC.EDTECH ---
Patient given dinner tray
--- NOTE | 2023-05-26 19:59 | MHC.EDTECH ---
Patient bed pad changed and repositioned
[2023-05-26] MEDS: Albuterol Sulfate 90 MCG 8 GM INHALER 2 PUFF INHALE (21:25)
--- NOTE | 2023-05-26 21:25 | PHA.MEDREC ---
Pharmacy Consult ? Medication Reconciliation Pharmacy has completed the medication reconciliation. Confirmed patient medication with claim history and report from primary care. Patient reports he is not taking any of his inhalers as he has runout. patient also reported not taking either dose of seroquel (ever) but has been getting it filled regularly.
[2023-05-26 21:26] VITALS: PULSE 87; RESP 19; O2SAT 94
--- NOTE | 2023-05-26 21:56 | MHC.EDTECH ---
Patient inc therefore patient changed and repositioned
[2023-05-27] VITALS (7 sets, daily range): BP systolic 124–147; BP diastolic 68–72; PULSE 72–103; RESP 16–22; TEMP 36.3–36.7; O2SAT 92–97
[2023-05-27] MEDS: Albuterol Sulfate 2.5 MG, Albuterol/Iprat 2.5/0.5MG 3 ML 3 ML INHALE (01:36)
--- NOTE | 2023-05-27 02:15 | MHC.EDTECH ---
PT found in bed soiled with external catheter on floor. Tech cleaned PT and replaced external catheter with new one.
[2023-05-27] MEDS: predniSONE 10 MG TABLET 50 MG PO (09:34)
[2023-05-27] MEDS: Cholecalciferol (Vitamin D3) 25 MCG TABLET PO (10:13)
[2023-05-27] MEDS: Aspirin Enteric Coated 81 MG TABLET.DR PO (10:13)
[2023-05-27] MEDS: Atorvastatin Calcium 20 MG TABLET PO (10:13)
[2023-05-27] MEDS: amLODIPine Besylate 5 MG TABLET PO (10:13)
--- NOTE | 2023-05-27 11:24 | MHC.CM.ED ---
Patient remains in ER overflow. [facility] on-site. Clinical update provided. Psych eval for capacity is pending. Continue to monitor for d/c needs.
[2023-05-27] MEDS: hydroCHLOROthiazide 12.5 MG TABLET PO (12:00)
[2023-05-27] MEDS: Albuterol/Iprat 2.5/0.5MG 3 ML AMPUL.NEB INHALE (13:57)
--- NOTE | 2023-05-27 16:05 | MHC.EDTECH ---
Patient soiled. This electrical controls technician assist nurse in patient care, changing soiled pads and paul.
[2023-05-27] MEDS: QUEtiapine Fumarate 25 MG TABLET PO (21:33)
[2023-05-27] MEDS: Albuterol Sulfate (0.083%) 2.5 MG/3 ML VIAL.NEB INHALE (21:51)
--- NOTE | 2023-05-28 01:53 | MHC.EDTECH ---
pt was given incontinence care by this tech at this time
[2023-05-28 05:23] VITALS: BP 145/91; PULSE 70; RESP 18; TEMP 36.1; O2SAT 97
--- NOTE | 2023-05-28 07:11 | PC.NURSE ---
Assumed care of patient at 19:00 on 05/27. Patient seen in ED overflow s/p fall at home. [place] speaking only, manager manufacturing used at bedside. A&Ox4, responds appropriately to assessment questions but is confused when holding a conversation. Pt denies acute complaints. +pp/cms. Breathing is even and unlabored without distres on RA. Given prn duoneb by respiratory with +effect. VSS. Incontinence care provided. Patient able to self reposition in bed independently. Bed alarm on and safety measures in place. Handoff report given at 06:45.
--- NOTE | 2023-05-28 08:19 | PC.NURSE ---
assumed care of pt at 0700. pt boosted in bed and set up for breakfast. pt currently eating independently while watching tv. pt appears to be in good spirits. rr even/unlabored. call oropeza within reach. plan of care ongoing.
[2023-05-28] MEDS: Atorvastatin Calcium 20 MG TABLET PO (09:07)
[2023-05-28] MEDS: Cholecalciferol (Vitamin D3) 25 MCG TABLET PO (09:07)
[2023-05-28] MEDS: Aspirin Enteric Coated 81 MG TABLET.DR PO (09:07)
[2023-05-28 09:09] VITALS: BP 150/62; PULSE 79; RESP 16; TEMP 36.6; O2SAT 97
[2023-05-28] MEDS: amLODIPine Besylate 5 MG TABLET PO (09:11)
[2023-05-28] MEDS: Fluticasone/Umeclidinium/Vilanterol 100/62.5/25 BLST.W.DEV 1 PUFF INHALE (09:13)
--- NOTE | 2023-05-28 09:15 | PC.NURSE ---
pt washed up and oob to recliner. currently watching tv. pt medicated per mar. plan of care ongoing.
[2023-05-28] MEDS: predniSONE 10 MG TABLET 50 MG PO (10:14)
[2023-05-28] MEDS: hydroCHLOROthiazide 12.5 MG TABLET PO (10:14)
--- NOTE | 2023-05-28 12:43 | PC.NURSE ---
pt requesting prn breathing treatment. respiratory notified and aware.
[2023-05-28] MEDS: Albuterol/Iprat 2.5/0.5MG 3 ML AMPUL.NEB INHALE (12:48)
[2023-05-28 12:49] VITALS: PULSE 79; RESP 16
[2023-05-28 14:00] VITALS: BP 154/69; PULSE 75; RESP 18; TEMP 36.9; O2SAT 96
--- NOTE | 2023-05-28 15:04 | PC.NURSE ---
pt requesting duoneb treatment, respiratory notified and aware. respiratory checked lung sounds which are clear. no duoneb given at this time.
--- NOTE | 2023-05-28 16:31 | PC.NURSE ---
buster geronimo, called for update on pt. grazyna called ambulance for pt. given update per pt permission. left number with t/w. Grazyna (neighbor): [phone]
--- NOTE | 2023-05-28 18:44 | PC.NURSE ---
Addendum entered by Linn Weinstein RN 05/28/23 19:03: pt given breathing treatment. appears much better, skin color back to pt baseline, no audible wheezing, and rr even/unlabored. pt sts he feels much better. call oropeza within reach. plan of care ongoing. Original Note: pt was being cleaned up by VENEER JOINTER when complaining he couldnt breathe. pt face started tuning purple and pt started belly breathing. audible expiratory wheezing. pt placed in high fowlers and respiratory therapy called.
[2023-05-28] MEDS: Acetaminophen 325 MG TABLET 975 MG PO (19:24)
[2023-05-28] MEDS: QUEtiapine Fumarate 25 MG TABLET PO (19:24)
[2023-05-28 20:17] VITALS: BP 150/66; PULSE 74; RESP 16; TEMP 36.9; O2SAT 96
--- NOTE | 2023-05-28 21:28 | PC.NURSE ---
Pt c/o of headache medicated with tylenol 975mg po at 1925 with good effect.Resting comfortably at present time.
[2023-05-29] VITALS (8 sets, daily range): BP systolic 144–173; BP diastolic 65–83; PULSE 75–105; RESP 16–19; TEMP 36.7–37; O2SAT 92–98
--- NOTE | 2023-05-29 00:10 | PC.NURSE ---
pt has skin tear to right elbow foam dsg applied.
[2023-05-29] MEDS: Acetaminophen 325 MG TABLET 975 MG PO ×2 (05:11→16:06)
[2023-05-29] MEDS: Fluticasone/Umeclidinium/Vilanterol 100/62.5/25 BLST.W.DEV 1 PUFF INHALE (07:30)
[2023-05-29] MEDS: Albuterol/Iprat 2.5/0.5MG 3 ML AMPUL.NEB INHALE ×2 (07:33→12:18)
--- NOTE | 2023-05-29 07:33 | PC.NURSE ---
pt incontinent of urine at this time, linens changed and pt brief changed, respiratory at bedside for tx
[2023-05-29] MEDS: Atorvastatin Calcium 20 MG TABLET PO (09:36)
[2023-05-29] MEDS: Aspirin Enteric Coated 81 MG TABLET.DR PO (09:36)
[2023-05-29] MEDS: amLODIPine Besylate 5 MG TABLET PO (09:36)
[2023-05-29] MEDS: Cholecalciferol (Vitamin D3) 25 MCG TABLET PO (09:36)
[2023-05-29] MEDS: hydroCHLOROthiazide 12.5 MG TABLET PO (09:37)
[2023-05-29] MEDS: predniSONE 10 MG TABLET 50 MG PO (09:38)
--- NOTE | 2023-05-29 09:46 | PC.NURSE ---
pt medicated per JUN with the help of [facility] [place] Melania. pt c/o 10/02 JINNY leg pain, given ice pack for comfort at this time, informed of PRN tylenol next available at approx 1300. pt took AM medications well without problem. pt in NAD at this time, RR even, unlabored, reports improved s/p pdraft this AM
--- NOTE | 2023-05-29 16:06 | PC.NURSE ---
pt incontinent of urine, with a 2 assist pt up to bedside commode, pt with difficulty following directions during this. unstable on transfer. linens changed. pt had large BM in commode. pt back to bed with increased WOB, saO2 92%, wheezing auscultated throughout, placed pt on 2L NC for comfort at the time being. call placed to [facility]TER for one time dose duoneb, respiratory at bedside at this time to administer.
[2023-05-29] MEDS: Albuterol Sulfate 2.5 MG, Albuterol/Iprat 2.5/0.5MG 3 ML 3 ML INHALE (16:07)
--- NOTE | 2023-05-29 20:42 | MHC.EDTECH ---
Patient was incontinent of urine ,bed bath given ,and bedding change ,vitals taken .
[2023-05-29] MEDS: QUEtiapine Fumarate 25 MG TABLET PO (20:46)
--- NOTE | 2023-05-29 20:50 | PC.NURSE ---
Pt alert and oriented to self. Resting and watching TV at the bedside. Medicated per JUN. Pt tolerated well. Reports SOB. O2sat 95% RA. Breaths are even regular and unlabored. No apparent distress noted. Able to make needs known. Monitoring is ongoing.
[2023-05-30 05:25] VITALS: BP 154/70; PULSE 64; RESP 16; TEMP 36.1; O2SAT 97
--- NOTE | 2023-05-30 05:26 | MHC.EDTECH ---
Patient slept most of the night ,vitals taken ,pt was incontinent of urine ,care given and bedding changed ,warm blanket given ,pt watching television .
[2023-05-30] MEDS: amLODIPine Besylate 5 MG TABLET PO (07:55)
[2023-05-30] MEDS: Cholecalciferol (Vitamin D3) 25 MCG TABLET PO (07:55)
[2023-05-30] MEDS: Fluticasone/Umeclidinium/Vilanterol 100/62.5/25 BLST.W.DEV 1 PUFF INHALE (07:55)
[2023-05-30] MEDS: Atorvastatin Calcium 20 MG TABLET PO (07:56)
[2023-05-30] MEDS: Aspirin Enteric Coated 81 MG TABLET.DR PO (07:56)
--- NOTE | 2023-05-30 08:00 | MHC.EDTECH ---
patient was washed up with complete bed change and reposition to a recliner.
--- NOTE | 2023-05-30 08:00 | MHC.EDTECH ---
teeth and denture care was given
[2023-05-30] MEDS: hydroCHLOROthiazide 12.5 MG TABLET PO (08:59)
[2023-05-30] MEDS: predniSONE 10 MG TABLET 50 MG PO (08:59)
--- NOTE | 2023-05-30 09:03 | MHC.CM.ED ---
Addendum entered by Yolanda Kaplan 05/30/23 14:55: Referral broadcasted within 50 miles of patient's address to all facilities that are contracted with [facility]. Addendum entered by Yolanda Kaplan 05/30/23 14:42: Patient evaluated by Celsa Alvarado NP. MOCA & ACL assessments pending. Original Note: Patient remains in ER overflow. Still waiting for psych consult to see if patient has capacity to make his own decisions. Celsa Alvarado NP aware. Continue to monitor for d/c needs.
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
--- NOTE | 2023-05-30 10:30 | MHC.EDTECH ---
patient was assisted to shave his facial hair
[2023-05-30 12:28] VITALS: PULSE 94; RESP 20; O2SAT 96
[2023-05-30] MEDS: Albuterol Sulfate (0.083%) 2.5 MG/3 ML VIAL.NEB INHALE ×2 (12:28→19:42)
[2023-05-30 12:46] LABS: MANUAL DIFF FLAG NO
[2023-05-30 12:48] LABS: Basophils Percent Auto 0.1 % (0-2); Eosinophils Absolute Auto 0.1 X10*3/uL (0.0-0.4); Eosinophils Percent Auto 0.3 % (0-4); Hematocrit 46.9 % (42.0-52.0); Hemoglobin 16.4 g/dl (14.0-18.0); Imm Gran Abs Auto 0.19 X10*3/uL (0.00-0.03); Imm Gran Pct Auto 0.9 % (0.0-0.4); Lymphocytes Absolute Auto 2.8 X10*3/uL (1.2-4.9); Lymphocytes Percent Auto 13.3 % (20-40); Mean Corpuscular Hemoglobin 31.1 pg (27.0-33.0); Mean Corpuscular Volume 88.8 fL (80.0-98.0); Mean Platelet Volume 10.6 fL (9.4-12.4); Monocytes Percent Auto 4.8 % (2-11); Neutrophils Absolute Auto 17.2 x10*3/uL (2.0-8.3); Neutrophils Percent Auto 80.6 % (45-73); Platelet Count 348 X10*3/uL (160-400); Red Blood Count 5.28 X10*6/uL (4.60-5.80); Red Cell Distribution Width 13.2 % (11.0-16.0); White Blood Count 21.3 X10*3/uL (4.8-10.8)
[2023-05-30 13:03] LABS: Alanine Aminotransferase 59 U/L (0-40); Albumin Level 3.9 g/dL (3.5-5.0); Alkaline Phosphatase 110 U/L (39-117); Anion Gap 14 (12-20); Aspartate Amino Transferase 28 U/L (5-37); Bilirubin Total 0.7 mg/dL (0.0-1.0); Blood Urea Nitrogen 23 mg/dL (9-16); Calcium 9.3 mg/dL (8.4-10.2); Carbon Dioxide 29 mmol/L (22-29); Chloride 99 mmol/L (96-108); Estimated Glomerular Filt Rate 55; Glucose Random 147 mg/dL (60-115); Potassium 3.8 mmol/L (3.3-5.1); Sodium 138 mmol/L (135-145); Total Protein 7.8 g/dL (6.5-8.0)
[2023-05-30 14:00] VITALS: BP 159/73; PULSE 81; RESP 24; TEMP 36.9; O2SAT 96
[2023-05-30] MEDS: QUEtiapine Fumarate 25 MG TABLET PO ×2 (15:20→20:45)
--- NOTE | 2023-05-30 17:18 | PC.NURSE ---
Pt was transferred from recliner to bed. Pt eating supper in bed at this time.
[2023-05-30 19:42] VITALS: PULSE 81; RESP 20; O2SAT 98
--- NOTE | 2023-05-30 19:44 | PC.NURSE ---
Patient awake, resting in a hospital bed, VSS, saturating 96-98% on supplemental O2 at 1 LPM NC. Patient requesting Duoneb treatment, RT informed, currently at bedside administering resp treatment, per RT recommendation supplemental O2 removed. Patient breathing unlabored, RR 18. [place] catheter applied to promote comfort and prevent skin breakdown.
[2023-05-30 20:13] VITALS: BP 159/76; PULSE 84; RESP 20; TEMP 37.2
--- NOTE | 2023-05-30 21:03 | PC.NURSE ---
Patient saturating 96-97% RA, RR 16. Patient medicated per MAR with bedtime Seroquel, patient offers no complaints at this time, call oropeza within patient's reach.
[2023-05-30 21:37] LABS: Appearance Urine Clear; Color Urine Yellow; Glucose Urine UA Negative (Negative); Leukocyte Esterase Urine Negative (Negative); Nitrite Urine Negative (Negative); PH 6.5 (5.0-9.0); Urine Blood Negative (Negative); Urine Ketones Negative (Negative); Urine Protein Negative (Neg-Trace)
[2023-05-30 21:42] LABS: Bacteria Urine None Seen (None Seen); Hyaline Casts Urine 0-2 /LPF (0-2); RBC Urine 0-2 /HPF (0-2); Squamous Epithelial Cell Urine 0-2 /HPF (0-2); WBC Urine 0-5 /HPF (0-5)
[2023-05-31] VITALS (7 sets, daily range): BP systolic 125–154; BP diastolic 64–76; PULSE 70–82; RESP 16–20; TEMP 36.1–36.6; O2SAT 94–97
[2023-05-31] MEDS: QUEtiapine Fumarate 25 MG TABLET PO ×4 (02:54→21:29)
[2023-05-31] MEDS: Acetaminophen 325 MG TABLET 975 MG PO ×2 (02:54→15:19)
--- NOTE | 2023-05-31 03:01 | PC.NURSE ---
Patient woke up confused, attempting to get out of the bed stating that his brother called him and he needs to go home. This RN with help of Chinese speaking PRODUCTION PLANNER SCHEDULER attempted to redirect patient, patient is no easily redirectible. Patient medicated with PRN Seroquel and Tylenol for c/o pain in back, lower legs, and face. RR 16, O2 Sat 96% RA. Patient is currently in bed, watching TV, calm, no further attempts made to get out of the bed, no s/s of agitation noted. Plan of care ongoing.
[2023-05-31] MEDS: Fluticasone/Umeclidinium/Vilanterol 100/62.5/25 BLST.W.DEV 1 PUFF INHALE (07:46)
[2023-05-31] MEDS: amLODIPine Besylate 5 MG TABLET PO (08:21)
[2023-05-31] MEDS: Atorvastatin Calcium 20 MG TABLET PO (08:22)
[2023-05-31] MEDS: Cholecalciferol (Vitamin D3) 25 MCG TABLET PO (08:22)
[2023-05-31] MEDS: Aspirin Enteric Coated 81 MG TABLET.DR PO (08:22)
--- NOTE | 2023-05-31 08:29 | PC.NURSE ---
Assumed care of this pt at 0700. Pt awake in bed, oriented to self and place, pt denies pain at this time, vss. Meds given as documented, breakfast given. Hydrochlorothiazide 12.5 mg not loaded in ovflw pyxis, pharmacy made aware and will bring to unit.
[2023-05-31] MEDS: hydroCHLOROthiazide 12.5 MG TABLET PO (09:48)
[2023-05-31] MEDS: Albuterol/Iprat 2.5/0.5MG 3 ML AMPUL.NEB INHALE ×2 (14:42→21:50)
--- NOTE | 2023-05-31 14:53 | PC.NURSE ---
Respiratory Therapist at bedside, breathing tx being given at this time.
--- NOTE | 2023-05-31 14:54 | MHC.CM.ED ---
Patient remains in ER. MOCA & ACL assessments still pending. Referral broadcasted within 50 miles of patient's home for SNF. Waiting to hear from [facility], [facility] and [facility]. The other 42 facilities have declined patient. Referral will be broadcasted throughout the entire [facility], to all facilities that are contracted with [facility]. Continue to monitor for d/c needs.
--- NOTE | 2023-05-31 15:54 | MHC.EDTECH ---
changed pt full bed change
--- NOTE | 2023-05-31 16:35 | PC.NURSE ---
Pt reported 7/10 body pain, prn pain med given, effectiveness pending. Pt resting quietly at this time.
--- NOTE | 2023-05-31 22:22 | MHC.EDTECH ---
checked pt and he is still dry waiting on machining and assembly supervisor to bring [place] catheter to put back on
[2023-06-01] MEDS: guaiFENesin LA 600 MG TAB.ER.12H 1200 MG PO ×2 (00:40→20:59)
--- NOTE | 2023-06-01 01:26 | PC.NURSE ---
Took report from off-going RN at 2300 hours. Pt is an 83 y/o male who is here s/p fall, arrived may 26. Pt is korean-speaking only. Pt has a nasal bone fx, and a sutured laceration over right eyebrow. Per off-going RN and apple peeler operator, pt is A & O X 4. No acute distress observed and skin is W/P/D. Pt is calm and cooperative and verbalizes needs appropriately. Pt had a PT eval on May 27, but nothing since. Has a [place] catheter in place. Plain is admit to SNF for rehab. Ambulates with walker at home. If SPO2 drops below 89, plan is to order x-ray.
--- NOTE | 2023-06-01 02:45 | PC.NURSE ---
Pt is sleeping, appears comfortable. No acute distress noted. Changes positions independently as desired and makes needs known appropriately. Arousable with verbal stimuli. Final disposition is still pending. Will continue to monitor.
--- NOTE | 2023-06-01 04:50 | PC.NURSE ---
Pt is sleeping in bed in left lateral position, appears comfortable. No acute distress noted. RR is regular depth and pattern. Changes position in bed independently as desired. Will continue to monitor.
[2023-06-01 06:00] VITALS: BP 153/68; PULSE 75; RESP 18; TEMP 36.1; O2SAT 94
--- NOTE | 2023-06-01 06:38 | PC.NURSE ---
Pt is awake and alert, answering questions appropriately per business area director. Speaking in full sentences. No acute distress noted. Lung sounds are clear bilaterally, no wheezing auscultated, but pt reports feeling tight. Respiratory called for PRN breathing treatment. Pt educated on asthma management. Pt keeps asking for medication for phlegm and reports that he takes prednisone regularly at home. Pt is afebrile.
[2023-06-01 07:22] VITALS: PULSE 75; RESP 18
[2023-06-01] MEDS: Albuterol/Iprat 2.5/0.5MG 3 ML AMPUL.NEB INHALE ×2 (07:22→18:34)
[2023-06-01] MEDS: Fluticasone/Umeclidinium/Vilanterol 100/62.5/25 BLST.W.DEV 1 PUFF INHALE (07:22)
[2023-06-01] MEDS: Aspirin Enteric Coated 81 MG TABLET.DR PO (07:30)
[2023-06-01] MEDS: hydroCHLOROthiazide 12.5 MG TABLET PO (07:30)
[2023-06-01] MEDS: amLODIPine Besylate 5 MG TABLET PO (07:30)
[2023-06-01] MEDS: Atorvastatin Calcium 20 MG TABLET PO (07:30)
[2023-06-01] MEDS: Cholecalciferol (Vitamin D3) 25 MCG TABLET PO (07:31)
[2023-06-01] MEDS: Acetaminophen 325 MG TABLET 975 MG PO ×2 (07:31→19:43)
[2023-06-01] MEDS: QUEtiapine Fumarate 25 MG TABLET PO ×3 (07:31→20:52)
[2023-06-01 13:47] VITALS: BP 134/66; PULSE 80; RESP 18; TEMP 36.1; O2SAT 95
[2023-06-01 18:35] VITALS: PULSE 80; RESP 18; O2SAT 94
--- NOTE | 2023-06-01 18:45 | PC.NURSE ---
Patient requested respiratory treatment, RT was called and gave patient nebulizer treatment per JUN.
[2023-06-01 19:05] VITALS: BP 153/87; PULSE 89; RESP 20; TEMP 37; O2SAT 96
[2023-06-01 23:10] VITALS: BP 144/68; PULSE 75; RESP 18; TEMP 36.1; O2SAT 96
[2023-06-02] VITALS (7 sets, daily range): BP systolic 126–181; BP diastolic 65–86; PULSE 62–84; RESP 16–20; TEMP 36.3–37; O2SAT 95–96
[2023-06-02] MEDS: Fluticasone/Umeclidinium/Vilanterol 100/62.5/25 BLST.W.DEV 1 PUFF INHALE (07:58)
[2023-06-02] MEDS: hydroCHLOROthiazide 12.5 MG TABLET PO (08:59)
[2023-06-02] MEDS: Aspirin Enteric Coated 81 MG TABLET.DR PO (08:59)
[2023-06-02] MEDS: Cholecalciferol (Vitamin D3) 25 MCG TABLET PO (08:59)
[2023-06-02] MEDS: amLODIPine Besylate 5 MG TABLET PO (08:59)
[2023-06-02] MEDS: Atorvastatin Calcium 20 MG TABLET PO (08:59)
[2023-06-02] MEDS: QUEtiapine Fumarate 25 MG TABLET PO ×3 (09:00→20:57)
[2023-06-02] MEDS: Acetaminophen 325 MG TABLET 975 MG PO ×2 (09:04→20:57)
--- NOTE | 2023-06-02 10:30 | MHC.CM.ED ---
Patient remains in ER overflow. HCP invoked by Dr Dupont. Clinical updates sent to facilities still following patient: [facility], [facility], [facility], [facility], [facility], [facility], and [facility]. Continue to monitor for d/c needs.
--- NOTE | 2023-06-02 16:31 | PC.NURSE ---
assumed care of pt at 1555, pt resting quietly in bed, per prior notes pt a&ox4, English speaking, able to make needs known.
--- NOTE | 2023-06-02 17:14 | PC.NURSE ---
pt reports increased sob, requesting breathing treatment, vss, no wheezing, resp aware.
--- NOTE | 2023-06-02 17:21 | MHC.CM.ED ---
Addendum entered by Martha Sanchez 06/02/23 20:57: Copy of Invoked HCP on chart and uploaded into [facility]. Original Note: [facility] called for an update on this patients plan of care. They are providing home care services. ([phone]). No bed offers yet. HCP invoked. No capacity. Updates sent to facilities.
[2023-06-02] MEDS: Albuterol/Iprat 2.5/0.5MG 3 ML AMPUL.NEB INHALE (17:35)
--- NOTE | 2023-06-02 22:57 | PC.NURSE ---
pt medicated per MAR - meds taken whole w water, vss, pt resting quietly in bed w eyes closed.
--- NOTE | 2023-06-03 02:52 | PC.NURSE ---
Assumed care of pt at 23:30. Pt AXOx4, Jordanian speaking. VSS. Pt is resting quietly in bed. Bed in lowest position with alarm in place. Call oropeza within reach of pt. No report of pain.
[2023-06-03] MEDS: Acetaminophen 325 MG TABLET 975 MG PO ×2 (05:38→16:13)
[2023-06-03 06:00] VITALS: BP 142/78; PULSE 69; RESP 18; TEMP 36.8; O2SAT 97
--- NOTE | 2023-06-03 07:50 | PC.NURSE ---
PT IS A/O X 4 NO SOB/SUREKHA NOTED. LUNGS -CTA. SPEAKS IN FULL SENTENCES. DRILLING SUPERVISOR AT BEDSIDE. PT DENIES ANY PAIN/DISC. NO EDEMA NOTED. WILL CONTINUE TO MONITOR.
[2023-06-03 08:08] VITALS: PULSE 80; RESP 18; O2SAT 96
[2023-06-03] MEDS: Fluticasone/Umeclidinium/Vilanterol 100/62.5/25 BLST.W.DEV 1 PUFF INHALE (08:08)
[2023-06-03 08:10] VITALS: BP 160/77; PULSE 76; RESP 16; TEMP 36.3; O2SAT 96
[2023-06-03] MEDS: QUEtiapine Fumarate 25 MG TABLET PO ×3 (08:13→20:20)
[2023-06-03] MEDS: Cholecalciferol (Vitamin D3) 25 MCG TABLET PO (08:13)
[2023-06-03] MEDS: Atorvastatin Calcium 20 MG TABLET PO (08:13)
[2023-06-03] MEDS: amLODIPine Besylate 5 MG TABLET PO (08:13)
[2023-06-03] MEDS: hydroCHLOROthiazide 12.5 MG TABLET PO (08:14)
[2023-06-03] MEDS: Aspirin Enteric Coated 81 MG TABLET.DR PO (08:14)
--- NOTE | 2023-06-03 08:21 | MHC.EDTECH ---
PT ate 100% of his breakfast and 240cc of juice.
--- NOTE | 2023-06-03 08:58 | PC.NURSE ---
occupational therapist at bedside with the biometry teacher, pt is aware of plan of care.
--- NOTE | 2023-06-03 09:16 | MHC.EDTECH ---
PT had a bed bath. PT was incontinent. this tech also did a complete bed change. Pt is sitting in recliner chair
--- NOTE | 2023-06-03 09:20 | MHC.EDTECH ---
pt was incontinent of his bowels.
--- NOTE | 2023-06-03 12:00 | PC.NURSE ---
PT'S DAUGHTER AT BEDSIDE. PT IS EATING LUNCH.
--- NOTE | 2023-06-03 12:41 | MHC.CM.PN ---
PT AWAITING LTC PLACEMENT. 156 REFERRALS MADE, [facility] THE ONLY SNF FOLLOWING THEY HAVE INFORMED CM THEY MAY HAVE A BED EARLY TUESDAY
--- NOTE | 2023-06-03 12:50 | PC.NURSE ---
PT'S DAUGHTER HAS LEFT THE BEDSIDE.
[2023-06-03 14:00] VITALS: BP 164/62; PULSE 90; RESP 17; TEMP 36.8; O2SAT 94
--- NOTE | 2023-06-03 14:07 | MHC.EDTECH ---
pt has not voided since the beginning of the shift. RN AWARE
--- NOTE | 2023-06-03 14:19 | PC.NURSE ---
Addendum entered by Sammie Barbosa 06/03/23 14:24: MLP (RADHA) AWARE. NO NEW ORDERS AT THIS TIME. Original Note: PT HAS NOT VOIDED SINCE THE BEGINNING OF THIS SHIFT. BLADDER SCAN DONE - 265ML IN BLADDER. PT STATES THAT HE DOES NOT FEEL LIKE HE NEEDS TO VOID AT THIS TIME.
--- NOTE | 2023-06-03 14:50 | PC.NURSE ---
PT SEEN BY ARLENE (Karie GARCIA) PT DENIES ANY BLADDER PAIN/ISSUES OR CONCERNS. WILL CONTINUE TO MONITOR.
--- NOTE | 2023-06-03 20:04 | PC.NURSE ---
This RN took over pt care @ 1900 Pt in bed watching TV. Plan of care ongoing.
--- NOTE | 2023-06-03 20:21 | PC.NURSE ---
Pt medicated per jun. Plan of care ongoing.
[2023-06-04 06:30] VITALS: BP 147/70; PULSE 73; RESP 17; TEMP 36.4; O2SAT 95
[2023-06-04 08:31] VITALS: BP 158/72; PULSE 80; RESP 18; TEMP 36.6; O2SAT 95
[2023-06-04] MEDS: QUEtiapine Fumarate 25 MG TABLET PO ×3 (08:50→21:06)
[2023-06-04] MEDS: Aspirin Enteric Coated 81 MG TABLET.DR PO (08:50)
[2023-06-04] MEDS: Cholecalciferol (Vitamin D3) 25 MCG TABLET PO (08:50)
[2023-06-04] MEDS: amLODIPine Besylate 5 MG TABLET PO (08:50)
[2023-06-04] MEDS: Atorvastatin Calcium 20 MG TABLET PO (08:50)
[2023-06-04] MEDS: hydroCHLOROthiazide 12.5 MG TABLET PO (08:50)
[2023-06-04] MEDS: Acetaminophen 325 MG TABLET 975 MG PO (08:52)
[2023-06-04 11:17] VITALS: PULSE 84; RESP 18; O2SAT 96
[2023-06-04] MEDS: Fluticasone/Umeclidinium/Vilanterol 100/62.5/25 BLST.W.DEV 1 PUFF INHALE (11:17)
[2023-06-04 14:00] VITALS: BP 167/78; PULSE 74; RESP 20; TEMP 36.8; O2SAT 96
[2023-06-04 17:42] VITALS: PULSE 82; RESP 18; O2SAT 96
[2023-06-04] MEDS: Albuterol/Iprat 2.5/0.5MG 3 ML AMPUL.NEB INHALE (17:42)
--- NOTE | 2023-06-04 20:20 | PC.NURSE ---
This RN took over pt care @ 1900. Pt resting quietly in bed. Plan of care ongoing.
--- NOTE | 2023-06-04 21:10 | PC.NURSE ---
Pt medicated per jun. Plan of care ongoing.
[2023-06-04 22:37] VITALS: BP 162/70; PULSE 85; RESP 19; TEMP 36.8; O2SAT 95
--- NOTE | 2023-06-05 00:14 | MHC.EDTECH ---
This tech took over care of patient at 2300,hourly rounds completed,patient is clean and dry,bed alarm on for safety and call oropeza in reach
--- NOTE | 2023-06-05 01:47 | MHC.EDTECH ---
Hourly rounds completed,patient is sleeping comfortably and call oropeza in reach
--- NOTE | 2023-06-05 05:54 | PC.NURSE ---
Sindhu care and complete bed change done by RN and tech. Pt changed into clean gown. Pt repositioned in bed for comfort. Pt urinal emptied and placed in reach of pt. Plan of care ongoing.
[2023-06-05 06:00] VITALS: BP 149/75; PULSE 75; RESP 20; TEMP 36.7; O2SAT 95
[2023-06-05] MEDS: QUEtiapine Fumarate 25 MG TABLET PO ×3 (08:15→20:05)
[2023-06-05] MEDS: Cholecalciferol (Vitamin D3) 25 MCG TABLET PO (08:15)
[2023-06-05] MEDS: amLODIPine Besylate 5 MG TABLET PO (08:15)
[2023-06-05] MEDS: Atorvastatin Calcium 20 MG TABLET PO (08:15)
[2023-06-05] MEDS: hydroCHLOROthiazide 12.5 MG TABLET PO (08:15)
[2023-06-05] MEDS: Aspirin Enteric Coated 81 MG TABLET.DR PO (08:15)
[2023-06-05] MEDS: Fluticasone/Umeclidinium/Vilanterol 100/62.5/25 BLST.W.DEV 1 PUFF INHALE (08:27)
[2023-06-05 08:28] VITALS: PULSE 84; RESP 18; O2SAT 94
--- NOTE | 2023-06-05 13:35 | PC.NURSE ---
spoke with pt son Oli Son, will come to visit with pt, son was unaware pt had had fall. spoke with case management, [facility] as of today, there have been no bed offers due to pt LV II S/O status. statewide referral out.
--- NOTE | 2023-06-05 13:59 | PC.NURSE ---
pt helped back into bed w/ assist of 2. pt son, Oli at bedside, updated on STR facility search.
[2023-06-05 14:00] VITALS: BP 162/70; PULSE 75; RESP 16; TEMP 36.7; O2SAT 94
[2023-06-05] MEDS: Albuterol/Iprat 2.5/0.5MG 3 ML AMPUL.NEB INHALE (15:29)
[2023-06-05 15:30] VITALS: PULSE 87; RESP 16; O2SAT 97
[2023-06-05 23:16] VITALS: BP 146/65; PULSE 65; RESP 18; TEMP 37.1; O2SAT 96
[2023-06-06] VITALS (7 sets, daily range): BP systolic 138–160; BP diastolic 65–67; PULSE 65–96; RESP 16–18; TEMP 36.5–36.8; O2SAT 92–96
[2023-06-06] MEDS: Albuterol/Iprat 2.5/0.5MG 3 ML AMPUL.NEB INHALE ×3 (04:01→21:32)
--- NOTE | 2023-06-06 04:01 | PC.NURSE ---
Pt reporting feeling tightness in his chest, requesting a neb treatment. Slight wheezes in the left lower lung noted. Resp called and neb treatment administered. Pt repositioned in bed for comfort.
[2023-06-06] MEDS: Fluticasone/Umeclidinium/Vilanterol 100/62.5/25 BLST.W.DEV 1 PUFF INHALE (07:26)
[2023-06-06] MEDS: hydroCHLOROthiazide 12.5 MG TABLET PO (07:54)
[2023-06-06] MEDS: Aspirin Enteric Coated 81 MG TABLET.DR PO (07:54)
[2023-06-06] MEDS: Cholecalciferol (Vitamin D3) 25 MCG TABLET PO (07:54)
[2023-06-06] MEDS: QUEtiapine Fumarate 25 MG TABLET PO ×3 (07:54→20:08)
[2023-06-06] MEDS: Atorvastatin Calcium 20 MG TABLET PO (07:55)
[2023-06-06] MEDS: amLODIPine Besylate 5 MG TABLET PO (07:55)
--- NOTE | 2023-06-06 07:57 | PC.NURSE ---
complete bed change done, patient awake eating breakfast. medicated per the MAR, offering no complaints at this time
--- NOTE | 2023-06-06 10:03 | PC.NURSE ---
assisted out of bed into recliner, watching tv
--- NOTE | 2023-06-06 11:18 | MHC.CM.ED ---
Patient remains in ER overflow. Met with patient's son, Oli at bedside. Oli has a POA dated 2019 that includes health care decisions. Patient has a HCP proxy on file is dated 2021. Oli is aware of this. [facility] is following but doesn't have a bed available. Oli also aware patient's referral has been sent to all facilities in the [facility] contracted with [facility]. Continue to monitor for d/c needs.
--- NOTE | 2023-06-06 13:13 | PC.NURSE ---
Addendum entered by Ale Pena 06/06/23 13:25: complaining of shortness of breath, 92% on room air. respiratory down for prn treatment Original Note: 1 assist back into bed. patient utilized urinal
[2023-06-06] MEDS: Acetaminophen 325 MG TABLET 975 MG PO ×2 (15:13→20:08)
[2023-06-06 19:59] LABS: COVID-19 Test Negative (Negative); IDNOW Serial# 08D9AD1C
--- NOTE | 2023-06-06 20:01 | PC.NURSE ---
Asssumed care of patient 19:00. Patient c/o 7-12/02 pain...in my left leg . Not yet due for prn tylenol. Covering provider Caitlin Almanza notified. Provider written order to give prn tylenol now.
--- NOTE | 2023-06-07 01:04 | PC.NURSE ---
Patient continues in ED overflow pending placement, initially admitted for weakness and fall at home. Tajik speaking, bedside director speech and hearing utilized. Pt is A&Ox2-3, consistently to self and year. Reoriented. VSS. Chronic pain in legs 2/2 arthritis well managed with prn tylenol. Patient since resting in bed. Breathing is even and unlabored without distress on RA. Given prn duoneb by respiratory per patient request this evening with +effect reported by patient. Patient intermittently uses urinal or is incontinent. LBM 06/06. Covid swab obtained and sent in evening as ordered. Hourly purposeful rounding in place. Bed alarm on and safety measures in place. Call oropeza within reach, able to make needs known. Will continue to monitor for remainder of bond underwriter's scheduled care.
[2023-06-07 05:19] VITALS: BP 141/70; PULSE 75; RESP 16; TEMP 36.6; O2SAT 94
[2023-06-07] MEDS: amLODIPine Besylate 5 MG TABLET PO (07:29)
[2023-06-07] MEDS: Cholecalciferol (Vitamin D3) 25 MCG TABLET PO (07:29)
[2023-06-07] MEDS: QUEtiapine Fumarate 25 MG TABLET PO ×3 (07:30→20:58)
[2023-06-07] MEDS: hydroCHLOROthiazide 12.5 MG TABLET PO (07:30)
[2023-06-07] MEDS: Atorvastatin Calcium 20 MG TABLET PO (07:30)
[2023-06-07] MEDS: Aspirin Enteric Coated 81 MG TABLET.DR PO (07:30)
[2023-06-07] MEDS: Fluticasone/Umeclidinium/Vilanterol 100/62.5/25 BLST.W.DEV 1 PUFF INHALE (08:50)
[2023-06-07 08:51] VITALS: PULSE 94; RESP 18; O2SAT 93
[2023-06-07] MEDS: Albuterol/Iprat 2.5/0.5MG 3 ML AMPUL.NEB INHALE ×2 (08:53→17:45)
[2023-06-07 14:00] VITALS: BP 155/76; PULSE 84; RESP 18; TEMP 37.2; O2SAT 93
[2023-06-07 17:45] VITALS: PULSE 79; RESP 18; O2SAT 97
--- NOTE | 2023-06-07 19:10 | PC.NURSE ---
This RN took over pt care @ 1900. Pt in bed resting quietly. Plan of care ongoing.
--- NOTE | 2023-06-07 19:28 | PC.NURSE ---
Pt requested and given boost in bed. Urinal placed at bedside. Plan of care ongoing.
[2023-06-07 20:30] VITALS: BP 130/62; PULSE 89; RESP 18; TEMP 36.8; O2SAT 96
--- NOTE | 2023-06-07 21:10 | PC.NURSE ---
Pt medicated per mar. Sindhu care and complete bed change. Pt positioned in bed for comfort. Plan of care ongoing.
--- NOTE | 2023-06-08 06:17 | PC.NURSE ---
Sindhu care and complete bed change. Pt positioned for comfort. Plan of care ongoing.
[2023-06-08] MEDS: Fluticasone/Umeclidinium/Vilanterol 100/62.5/25 BLST.W.DEV 1 PUFF INHALE (07:56)
[2023-06-08 07:57] VITALS: BP 158/73; PULSE 68; RESP 16; TEMP 36.8; O2SAT 93; O2SAT 97
[2023-06-08] MEDS: Atorvastatin Calcium 20 MG TABLET PO (08:40)
[2023-06-08] MEDS: hydroCHLOROthiazide 12.5 MG TABLET PO (08:40)
[2023-06-08] MEDS: amLODIPine Besylate 5 MG TABLET PO (08:40)
[2023-06-08] MEDS: Aspirin Enteric Coated 81 MG TABLET.DR PO (08:40)
[2023-06-08] MEDS: QUEtiapine Fumarate 25 MG TABLET PO ×3 (08:40→20:01)
[2023-06-08] MEDS: Cholecalciferol (Vitamin D3) 25 MCG TABLET PO (08:40)
--- NOTE | 2023-06-08 08:42 | PC.NURSE ---
patient alert to person, knows hes in a hospital but unsure where, unsure of year, pt took medications whole with water, respirations equal/non labored, lungs duminished, bed alarm on for safety, denies pain/discomfort, vss, call oropeza within reach, will continue to monitor
[2023-06-08 14:00] VITALS: BP 114/74; PULSE 64; RESP 16; TEMP 36.4; O2SAT 95
[2023-06-08] MEDS: Acetaminophen 325 MG TABLET 975 MG PO (18:36)
--- NOTE | 2023-06-08 19:30 | PC.NURSE ---
patient c/o left leg pain, pt medicated with tylenol per order
[2023-06-08 19:38] VITALS: PULSE 80; RESP 16; O2SAT 95
[2023-06-08] MEDS: Albuterol/Iprat 2.5/0.5MG 3 ML AMPUL.NEB INHALE (19:38)
[2023-06-08 21:05] VITALS: BP 146/68; PULSE 86; RESP 18; TEMP 36.7; O2SAT 95
[2023-06-09 06:00] VITALS: BP 144/79; PULSE 64; RESP 18; TEMP 36.4; O2SAT 98
[2023-06-09] MEDS: Acetaminophen 325 MG TABLET 975 MG PO ×2 (06:23→20:57)
[2023-06-09] MEDS: Fluticasone/Umeclidinium/Vilanterol 100/62.5/25 BLST.W.DEV 1 PUFF INHALE (08:21)
[2023-06-09 08:23] VITALS: PULSE 64; RESP 18
[2023-06-09] MEDS: amLODIPine Besylate 5 MG TABLET PO (08:36)
[2023-06-09] MEDS: Atorvastatin Calcium 20 MG TABLET PO (08:36)
[2023-06-09] MEDS: hydroCHLOROthiazide 12.5 MG TABLET PO (08:36)
[2023-06-09] MEDS: Aspirin Enteric Coated 81 MG TABLET.DR PO (08:36)
[2023-06-09] MEDS: Cholecalciferol (Vitamin D3) 25 MCG TABLET PO (08:36)
[2023-06-09] MEDS: QUEtiapine Fumarate 25 MG TABLET PO ×3 (08:36→20:58)
--- NOTE | 2023-06-09 08:55 | MHC.EDTECH ---
patient was wahed up with complete bed change and mouth/ denture care was given reposition onto the recliner
--- NOTE | 2023-06-09 10:08 | HE.ICUCC ---
ICU Critical Care Nursing Note ICU Day #: Vent Day #: Neuro: Cardiac: Resp: GI/: Endocrine: Integumentary/Musculoskeletal: Psychosocial (family etc.): Infectious Disease: Central Lines:
--- NOTE | 2023-06-09 11:59 | PC.NURSE ---
assumed care of pt at 1100, pt resting in recliner, eating lunch, denies any pain/needs at this time.
--- NOTE | 2023-06-09 12:20 | PC.NURSE ---
pt requesting breathing treatment, resp notified.
[2023-06-09] MEDS: Albuterol/Iprat 2.5/0.5MG 3 ML AMPUL.NEB INHALE ×2 (12:24→17:45)
[2023-06-09 12:27] VITALS: PULSE 96; RESP 16; O2SAT 95
--- NOTE | 2023-06-09 13:08 | MHC.EDTECH ---
patient was assisted from the recliner to the bed and was also cleaned up
[2023-06-09 13:56] VITALS: BP 147/74; PULSE 94; RESP 22; TEMP 36.6; O2SAT 96
--- NOTE | 2023-06-09 15:32 | MHC.CM.ED ---
Patient remains in ER overflow. [facility] is still following but doesn't have a bed at this time. [facility] is not able to offer a bed. Reached out to facilities still following: [facility], and [facility]. Waiting to hear back. Continue to monitor for d/c needs.
--- NOTE | 2023-06-09 17:17 | PC.NURSE ---
pt reporting increased sob after eating, increased coughing, requesting breathing treatment. resp notified.
[2023-06-09 17:45] VITALS: PULSE 88; RESP 20; O2SAT 98
--- NOTE | 2023-06-09 20:00 | PC.NURSE ---
this rn and assistant production editor assisted pt to bedside commode pt had difficulty in transfer. pt requested breathing treatment after repositioned back to bed. pt utilizing 2 lPM nc prn
[2023-06-09 21:07] VITALS: BP 148/67; PULSE 80; RESP 20; TEMP 36.5; O2SAT 93
[2023-06-10] MEDS: Fluticasone/Umeclidinium/Vilanterol 100/62.5/25 BLST.W.DEV 1 PUFF INHALE (07:53)
[2023-06-10 07:54] VITALS: PULSE 80; RESP 20; O2SAT 95
[2023-06-10] MEDS: Aspirin Enteric Coated 81 MG TABLET.DR PO (08:09)
[2023-06-10] MEDS: amLODIPine Besylate 5 MG TABLET PO (08:09)
[2023-06-10] MEDS: hydroCHLOROthiazide 12.5 MG TABLET PO (08:09)
[2023-06-10] MEDS: Atorvastatin Calcium 20 MG TABLET PO (08:09)
[2023-06-10] MEDS: QUEtiapine Fumarate 25 MG TABLET PO ×3 (08:09→20:02)
[2023-06-10] MEDS: Cholecalciferol (Vitamin D3) 25 MCG TABLET PO (08:09)
--- NOTE | 2023-06-10 08:35 | PC.NURSE ---
Alert and oriented, denies pain or discomfort. Ate well for breakfast.
[2023-06-10] MEDS: Albuterol/Iprat 2.5/0.5MG 3 ML AMPUL.NEB INHALE (12:49)
[2023-06-10 13:41] VITALS: BP 158/72; PULSE 81; RESP 18; TEMP 36.9; O2SAT 96
[2023-06-10] MEDS: Acetaminophen 325 MG TABLET 975 MG PO (19:41)
[2023-06-10 20:02] VITALS: BP 156/74; PULSE 80; RESP 16; TEMP 36.7; O2SAT 95
--- NOTE | 2023-06-10 20:03 | PC.NURSE ---
This keno writer / runner assumed care of this Pt at 1900. Pt A&Ox3, reports 8/10 BLL pain x yesterday, Pt repositioned, medicated per JUN. Pt anxious, requesting breathing tx, RT made aware. SpO2 95% on RA, lung sounds diminished to bases.
--- NOTE | 2023-06-10 20:03 | MHC.EDTECH ---
Assumed care of pt at 1930. Vitals updated. Pt incontinent of large amount of urine. Pt cleaned and complete bedding change done. RN aware
--- NOTE | 2023-06-10 21:50 | PC.NURSE ---
Pt incontinent of urine, care provided. Pt repositioned.
[2023-06-11] MEDS: QUEtiapine Fumarate 25 MG TABLET PO ×4 (01:56→20:18)
--- NOTE | 2023-06-11 01:58 | PC.NURSE ---
Addendum entered by Nuzhat Butcher 06/11/23 02:13: Pt requesting PRN oxygen. Placed on 2L via NC. Original Note: Pt restless, states unable to sleep, pt medicated per MAR.
--- NOTE | 2023-06-11 04:57 | PC.NURSE ---
Pt appears to be sleeping, equal, nonlabored respirations, no apparent distress. Plan of care ongoing.
--- NOTE | 2023-06-11 05:51 | PC.NURSE ---
Pt awake, attempting to use urinal, yelling out im having an asthma attack , Pt reassured, replaced on 2L via NC.
[2023-06-11 06:19] VITALS: BP 152/72; PULSE 75; RESP 16; TEMP 36.4
--- NOTE | 2023-06-11 06:49 | PC.NURSE ---
Addendum entered by Nuzhat Butcher 06/11/23 06:53: RT made aware. Original Note: Pt has productive cough with yellow sputum, Pt requesting duoneb for asthma . Provider Cassandra Parrish made aware.
--- NOTE | 2023-06-11 08:13 | MHC.EDTECH ---
gave patient his breakfast and set it up for him. Patient is eating without any issues at this time.
--- NOTE | 2023-06-11 08:28 | MHC.EDTECH ---
patient ate 100% of his breakfast.
[2023-06-11 09:13] VITALS: PULSE 83; RESP 18; O2SAT 96
[2023-06-11] MEDS: Albuterol/Iprat 2.5/0.5MG 3 ML AMPUL.NEB INHALE ×2 (09:13→22:58)
[2023-06-11] MEDS: Fluticasone/Umeclidinium/Vilanterol 100/62.5/25 BLST.W.DEV 1 PUFF INHALE (09:13)
[2023-06-11 09:27] VITALS: BP 139/68; PULSE 80; RESP 16; TEMP 36.3
[2023-06-11] MEDS: Atorvastatin Calcium 20 MG TABLET PO (09:29)
[2023-06-11] MEDS: Cholecalciferol (Vitamin D3) 25 MCG TABLET PO (09:29)
[2023-06-11] MEDS: Aspirin Enteric Coated 81 MG TABLET.DR PO (09:29)
[2023-06-11] MEDS: hydroCHLOROthiazide 12.5 MG TABLET PO (09:29)
[2023-06-11] MEDS: amLODIPine Besylate 5 MG TABLET PO (09:30)
--- NOTE | 2023-06-11 09:30 | PC.NURSE ---
PT IS A/O X 4 (SAMI SPEAKING, LEARNING PROGRAM MANAGER AT BEDSIDE). PT C/O SOB, PRN NEB TX IS BEING GIVEN BY RESP THERAPIST. LUNGS - L LOBES - CTA. R LOBES - DIMINISHED. PT SPEAKS IN FULL SENTENCES. PT HAD MULTI COUGH WHEN TAKEN MEDS WHOLE WITH WATER AT A 90 DEGREE ANGLE. PER ELECTRONIC WIRER RN PROD-COUGH (YELLOW) AND PT APPEARS TO BE WEAKER. MLP (ROSALIO) TO BE UPDATED. PT C/O JINNY LOWER EXT PAIN/DISC 12/02 WITH L LEG MORE PAINFUL. PT TO BE MED X 1 WITH APAP 975MG PO FOR JINNY LOWER EXT PAIN. WILL CONTINUE TO MONITOR.
[2023-06-11] MEDS: Acetaminophen 325 MG TABLET 975 MG PO (09:36)
--- NOTE | 2023-06-11 10:44 | PC.NURSE ---
PT TO X-RAY VIA HOSP BED. PT TO HAVE LAB WORK DONE WHEN HE RETURNS.
[2023-06-11] MEDS: oxyCODONE HCl Immed Release 5 MG TABLET 2.5 MG PO (11:00)
--- NOTE | 2023-06-11 11:05 | PC.NURSE ---
PT GIVEN OXYCODONE 2.5MG PO WHOLE IN APPLESAUCE AND WAS TOLERATED WELL.
[2023-06-11 11:14] LABS: MANUAL DIFF FLAG NO
[2023-06-11 11:19] LABS: Basophils Percent Auto 0.4 % (0-2); Eosinophils Absolute Auto 0.5 X10*3/uL (0.0-0.4); Eosinophils Percent Auto 4.8 % (0-4); Hematocrit 41.3 % (42.0-52.0); Hemoglobin 14.4 g/dl (14.0-18.0); Imm Gran Abs Auto 0.03 X10*3/uL (0.00-0.03); Imm Gran Pct Auto 0.3 % (0.0-0.4); Lymphocytes Absolute Auto 1.8 X10*3/uL (1.2-4.9); Lymphocytes Percent Auto 17.6 % (20-40); Mean Corpuscular HGB Conc 34.9 g/dl (31.0-36.0); Mean Corpuscular Hemoglobin 30.8 pg (27.0-33.0); Mean Corpuscular Volume 88.2 fL (80.0-98.0); Mean Platelet Volume 10.7 fL (9.4-12.4); Monocytes Absolute Auto 0.7 X10*3/uL (0.1-1.2); Monocytes Percent Auto 6.4 % (2-11); Neutrophils Absolute Auto 7.2 x10*3/uL (2.0-8.3); Neutrophils Percent Auto 70.5 % (45-73); Platelet Count 214 X10*3/uL (160-400); Red Blood Count 4.68 X10*6/uL (4.60-5.80); Red Cell Distribution Width 13.3 % (11.0-16.0); White Blood Count 10.2 X10*3/uL (4.8-10.8)
[2023-06-11 11:41] LABS: Alanine Aminotransferase 24 U/L (0-40); Albumin Level 3.3 g/dL (3.5-5.0); Alkaline Phosphatase 125 U/L (39-117); Anion Gap 11 (12-20); Aspartate Amino Transferase 19 U/L (5-37); Bilirubin Direct 0.2 mg/dL (0.0-0.5); Bilirubin Total 0.6 mg/dL (0.0-1.0); Blood Urea Nitrogen 19 mg/dL (9-16); Calcium 8.8 mg/dL (8.4-10.2); Carbon Dioxide 30 mmol/L (22-29); Chloride 102 mmol/L (96-108); Creatinine Clr Calc Pharmacy 67.5; Estimated Glomerular Filt Rate > 60; Glucose Random 178 mg/dL (60-115); Potassium 3.5 mmol/L (3.3-5.1); Sodium 139 mmol/L (135-145); Total Protein 6.6 g/dL (6.5-8.0)
--- NOTE | 2023-06-11 12:36 | MHC.EDTECH ---
patient ate 100% of his lunch.
--- NOTE | 2023-06-11 15:00 | MHC.EDTECH ---
Patient was rolled and cleaned up. Patients bedding was freshened up.
[2023-06-11 18:19] VITALS: BP 163/72; PULSE 70; RESP 16; TEMP 36.6; O2SAT 96
--- NOTE | 2023-06-11 18:23 | MHC.EDTECH ---
patient ate 100% of his dinner.
[2023-06-11 22:59] VITALS: PULSE 75; RESP 18; O2SAT 95
[2023-06-12 05:43] VITALS: BP 137/73; PULSE 68; RESP 21; TEMP 36; O2SAT 95
[2023-06-12] MEDS: Atorvastatin Calcium 20 MG TABLET PO (08:14)
[2023-06-12] MEDS: Cholecalciferol (Vitamin D3) 25 MCG TABLET PO (08:14)
[2023-06-12] MEDS: Aspirin Enteric Coated 81 MG TABLET.DR PO (08:14)
[2023-06-12] MEDS: hydroCHLOROthiazide 12.5 MG TABLET PO (08:14)
[2023-06-12] MEDS: amLODIPine Besylate 5 MG TABLET PO (08:14)
[2023-06-12] MEDS: Acetaminophen 325 MG TABLET 975 MG PO ×2 (08:20→17:31)
--- NOTE | 2023-06-12 08:41 | MHC.EDTECH ---
Pt incontinent of urine. Bedding changed and dry. Pt positioned for comfort. Call oropeza placed within reach.
[2023-06-12] MEDS: Fluticasone/Umeclidinium/Vilanterol 100/62.5/25 BLST.W.DEV 1 PUFF INHALE (08:49)
[2023-06-12] MEDS: Albuterol/Iprat 2.5/0.5MG 3 ML AMPUL.NEB INHALE ×2 (08:56→18:01)
[2023-06-12 08:57] VITALS: PULSE 68; RESP 21; O2SAT 96
[2023-06-12] MEDS: QUEtiapine Fumarate 25 MG TABLET PO ×3 (09:26→19:30)
--- NOTE | 2023-06-12 12:06 | MHC.EDTECH ---
Pt repositioned for safety and comfort. Call oropeza placed within reach.
[2023-06-12 14:40] VITALS: BP 174/84; PULSE 77; RESP 18; O2SAT 95
[2023-06-12 18:03] VITALS: PULSE 83; RESP 18; O2SAT 96
[2023-06-12 20:17] VITALS: BP 145/68; PULSE 64; RESP 16; TEMP 37.1; O2SAT 96
--- NOTE | 2023-06-12 23:33 | PC.NURSE ---
Assumed care of pt at 2315. PT resting quietly at this time. Safety precautions in place. Plan of care ongoing
[2023-06-13] MEDS: QUEtiapine Fumarate 25 MG TABLET PO ×4 (00:01→21:11)
[2023-06-13] MEDS: Albuterol Sulfate 90 MCG 8 GM INHALER 2 PUFF INHALE ×3 (00:05→14:20)
--- NOTE | 2023-06-13 00:56 | PC.NURSE ---
PT requesting medications for asthma, states he cannot breathe. PRN medications administered per JUN.
[2023-06-13 07:16] VITALS: BP 140/65; PULSE 58; RESP 17; TEMP 36; O2SAT 98
--- NOTE | 2023-06-13 08:44 | MHC.EDTECH ---
Pt ate 100% of his breakfast. 240cc of fluids
[2023-06-13] MEDS: Cholecalciferol (Vitamin D3) 25 MCG TABLET PO (09:02)
[2023-06-13] MEDS: Atorvastatin Calcium 20 MG TABLET PO (09:02)
[2023-06-13] MEDS: amLODIPine Besylate 5 MG TABLET PO (09:02)
[2023-06-13] MEDS: Aspirin Enteric Coated 81 MG TABLET.DR PO (09:02)
[2023-06-13] MEDS: hydroCHLOROthiazide 12.5 MG TABLET PO (09:02)
--- NOTE | 2023-06-13 10:40 | MHC.EDTECH ---
pt was incontinent of urine. PT is washed up and sitting in bed.
[2023-06-13] MEDS: Fluticasone/Umeclidinium/Vilanterol 100/62.5/25 BLST.W.DEV 1 PUFF INHALE (12:10)
--- NOTE | 2023-06-13 12:19 | MHC.EDTECH ---
Pt ate 100% of his lunch and 120cc of fluids
[2023-06-13 14:00] VITALS: BP 151/70; PULSE 73; RESP 17; TEMP 36.6; O2SAT 98
[2023-06-13] MEDS: Acetaminophen 325 MG TABLET 975 MG PO (14:25)
[2023-06-13] MEDS: Albuterol/Iprat 2.5/0.5MG 3 ML AMPUL.NEB INHALE (15:28)
[2023-06-13 21:21] VITALS: BP 137/65; PULSE 64; RESP 16; TEMP 36.6; O2SAT 95
--- NOTE | 2023-06-13 23:20 | MHC.EDTECH ---
This pct assumed care of patient at 2300 ,Patient was incontinent of urine ,care given and bed pads change ,warm blanket given ,Call oropeza within Pt reach
[2023-06-14 05:20] VITALS: BP 137/74; PULSE 61; RESP 16; TEMP 36.4; O2SAT 100
--- NOTE | 2023-06-14 05:24 | MHC.EDTECH ---
Patient slept all night ,vitals taken ,Patient clean and dry ,Call oropeza within Pt reach .
--- NOTE | 2023-06-14 07:04 | PC.NURSE ---
Resumed care of patient, he is currently resting comfortably in bed. All safety measures in place. Call oropeza within reach
[2023-06-14] MEDS: Albuterol/Iprat 2.5/0.5MG 3 ML AMPUL.NEB INHALE (07:40)
[2023-06-14] MEDS: Fluticasone/Umeclidinium/Vilanterol 100/62.5/25 BLST.W.DEV 1 PUFF INHALE (07:40)
[2023-06-14 07:41] VITALS: PULSE 69; RESP 16; O2SAT 94
[2023-06-14 07:54] VITALS: BP 128/64; PULSE 71; RESP 20
[2023-06-14] MEDS: QUEtiapine Fumarate 25 MG TABLET PO ×3 (07:55→20:37)
[2023-06-14] MEDS: Acetaminophen 325 MG TABLET 975 MG PO (07:55)
[2023-06-14] MEDS: Atorvastatin Calcium 20 MG TABLET PO (07:55)
[2023-06-14] MEDS: Aspirin Enteric Coated 81 MG TABLET.DR PO (07:55)
[2023-06-14] MEDS: amLODIPine Besylate 5 MG TABLET PO (07:55)
[2023-06-14] MEDS: hydroCHLOROthiazide 12.5 MG TABLET PO (07:55)
[2023-06-14] MEDS: Cholecalciferol (Vitamin D3) 25 MCG TABLET PO (07:55)
--- NOTE | 2023-06-14 09:00 | MHC.CM.ED ---
OF THIS NOTE, 156 REFERRALS PLACED. 153 DENIALS, 2 HAVE NOT RESPONDED, AND 1 FACILITY ([facility]) IS FOLLOWING FOR A WHEN A BED IS AVAILABLE. CASE MANAGEMENT FOLLOWING.
--- NOTE | 2023-06-14 09:52 | PC.NURSE ---
Pt given Aerobika to help get phlem out. Pt has poor cough reflex, education given on how to use it with the reweaver.
[2023-06-14 13:56] VITALS: BP 132/72; PULSE 68; RESP 16; TEMP 36.6; O2SAT 94
--- NOTE | 2023-06-14 15:08 | MHC.SL.SWA ---
Speech Pathologist Impression: Within Functional Limits Risk of Aspiration Due to: Neurological Condition Reduced Cognition Dysphasia Diet Status: Liquid Consistency and Strategies for Safe Swallow: Liquid Intake Recommendation: Thin Liquid Intake Strategies: Small Sips Solid Food Consistency: Dietary Recommendations: Regular Additional Modifications to Solid Foods: Oral Medication Intake: Whole with Puree Please contact the pharmacy regarding appropriate crushable or liquid drug formulations that are available whenever modified delivery is recommended. Compensatory Strategies and Precautions to be Taken for Safe Swallow: Sitting Upright (90 deg) Small Bites and Sips Alternate Liquids/Solids Rate of Ingestion Change Oral Check Avoid Specific Foods Supervision While Eating and Drinking for Safe Swallow: Intermittent Supervision Foods to Avoid: Swallowing Recommended Treatments: Compens. Strategy Educat. Recommendation for Speech: Inpatient Speech Therapy Comment: Recommend MAINTAIN REGULAR SOLIDS and THIN LIQUIDS. MEDS WHOLE with PUREE or LIQUID, as tolerated. Assist with TRAY SET-UP. Ensure optimal positioning prior to meals. PROM BURN OFF OPERATOR will continue to assess Language and Cognition during inpatient stay to provide further discharge recommendations. Frequency/Duration: Date Range for Service Req: Timeline to reassess: Plastic Jig And Fixture Builder Clinican/Clinical Fellow: No Supervisory Statement: I have reviewed and agree with the student/clinical fellow's documentation: N/A Speech Language Pathologist: Roosevelt Hyman M.A., CCC-PROM BURN OFF OPERATOR
--- NOTE | 2023-06-14 16:10 | MHC.EDTECH ---
PT need a whole bed change was washed up and changed fresh line and sheets also was reposition as well
--- NOTE | 2023-06-14 23:38 | PC.NURSE ---
Assumed care of pt. Upon arrival pt asked for sleeping medication as he was not able to fall asleep but when this nurse arrived with the medication pt was asleep and in no apparent distress. Breaths are even regular and unlabored. Pt not medicated and allowed to sleep. Monitoring is ongoing.
--- NOTE | 2023-06-15 00:51 | PC.NURSE ---
Pt medicated with PRN med as pt is yelling and screaming for sleeping medication. Pt cleaned and changed. Perineal care provided as pt is incontinent of urine. Monitoring is ongoing.
--- NOTE | 2023-06-15 01:52 | PC.NURSE ---
Respiratory at bedside. Pt requesting breathing treatment reporting sob. Monitoring ongoing.
--- NOTE | 2023-06-15 03:40 | PC.NURSE ---
Incontinent care provided. Pt cleaned and changed.
[2023-06-15 06:00] VITALS: BP 131/63; PULSE 77; RESP 18; TEMP 36.4; O2SAT 95
[2023-06-15 07:27] VITALS: PULSE 77; RESP 18; O2SAT 95
[2023-06-15] MEDS: Fluticasone/Umeclidinium/Vilanterol 100/62.5/25 BLST.W.DEV 1 PUFF INHALE (07:27)
[2023-06-15] MEDS: Albuterol/Iprat 2.5/0.5MG 3 ML AMPUL.NEB INHALE ×3 (07:27→20:10)
[2023-06-15] MEDS: QUEtiapine Fumarate 25 MG TABLET PO ×3 (07:46→20:10)
[2023-06-15] MEDS: Atorvastatin Calcium 20 MG TABLET PO (07:46)
[2023-06-15] MEDS: hydroCHLOROthiazide 12.5 MG TABLET PO (07:46)
[2023-06-15] MEDS: Aspirin Enteric Coated 81 MG TABLET.DR PO (07:46)
[2023-06-15] MEDS: Cholecalciferol (Vitamin D3) 25 MCG TABLET PO (07:46)
[2023-06-15] MEDS: amLODIPine Besylate 5 MG TABLET PO (07:46)
[2023-06-15] MEDS: Acetaminophen 325 MG TABLET 975 MG PO ×2 (10:39→20:10)
[2023-06-15 14:00] VITALS: BP 147/69; PULSE 78; RESP 20; TEMP 37; O2SAT 95
--- NOTE | 2023-06-15 14:43 | PC.NURSE ---
report recieved from overnight RN, sports medicine physician per JUN. incontinence care provided as needed. Pt c/o pain to knees, sports medicine physician per JUN. Pt c/o feeling SOB, respirations even and unlabored, respiratory to bedside for PRN breathing treatments as ordered. Pt assisted with setup for meals and close monitoring for aspiration precautions. Call oropeza within reach, safety precautions remain in place.
--- NOTE | 2023-06-15 14:48 | MHC.EDTECH ---
Patient has dementia at baseline, confused at times. Patient is Faroese speaking. Patient was aware of the need to void and have a bowel movement. Patient was transferred to [facility] one assist with a standard walker. Patient was given care after voided and bowel movement; Washed and Cleaned and full bedding changed. RN at the bedside for transition back to bed. Patient at the time of this note is clean, comfortable and has call oropeza in hand.
[2023-06-15 15:32] VITALS: PULSE 78; RESP 20; O2SAT 94
--- NOTE | 2023-06-15 15:39 | MHC.SLORD ---
Speech Language Pathology Order Status: PHLEBOTOMY SPECIALIST eval performed on 06/14 to assess swallow and screen cognition. Swallow deemed to be WFL w/ most recent CXR clear; no concern for aspiration at this time. Cognition screened w/ clock drawing task however since dementia is already on his record, no further cognitive evaluation from PHLEBOTOMY SPECIALIST team is necessary at this time. Patient to be d/c from PHLEBOTOMY SPECIALIST services. If further concerns arise with cognition or swallow, please re-refer.
[2023-06-15 20:28] VITALS: BP 148/71; PULSE 92; RESP 20; TEMP 36.5; O2SAT 92
--- NOTE | 2023-06-15 21:37 | MHC.EDTECH ---
Patient wet through depends. Patient care and changing bed sheets and pads on bed.
--- NOTE | 2023-06-15 22:44 | MHC.EDTECH ---
During round at 22:44 checked patient depend, bed pad, and bed sheet all dry. Gave patient a warm blanket.
[2023-06-16] VITALS (7 sets, daily range): BP systolic 133–155; BP diastolic 66–72; PULSE 61–83; RESP 16–20; TEMP 36.1–36.9; O2SAT 94–96
[2023-06-16] MEDS: Fluticasone/Umeclidinium/Vilanterol 100/62.5/25 BLST.W.DEV 1 PUFF INHALE (07:47)
[2023-06-16] MEDS: Atorvastatin Calcium 20 MG TABLET PO (09:05)
[2023-06-16] MEDS: QUEtiapine Fumarate 25 MG TABLET PO ×3 (09:05→20:47)
[2023-06-16] MEDS: amLODIPine Besylate 5 MG TABLET PO (09:05)
[2023-06-16] MEDS: hydroCHLOROthiazide 12.5 MG TABLET PO (09:05)
[2023-06-16] MEDS: Aspirin Enteric Coated 81 MG TABLET.DR PO (09:05)
[2023-06-16] MEDS: Cholecalciferol (Vitamin D3) 25 MCG TABLET PO (09:05)
--- NOTE | 2023-06-16 10:03 | PC.NURSE ---
this RN resumed care of pt at this time. pt resting comfortably in no apparent distress. no sob/wob noted. respirations even and unlabored. per RT rounding - pt was resting at 94% on RA. pt placed on 1L via NC to promote comfort per pt's request. pt repositioned to comfort. per CM notes, pt continues to wait for LTC placement at this time. plan of care ongoing. call oropeza placed within reach.
[2023-06-16] MEDS: Albuterol Sulfate 90 MCG 8 GM INHALER 2 PUFF INHALE ×3 (12:34→20:02)
--- NOTE | 2023-06-16 12:35 | PC.NURSE ---
pt requires 2:1 assist to ambulate to the commode. pt extremely unsteady on feet and weak. pt had BM on the commode. pt incontinent of urine d/t missing urinal prior to going on commode. bedding changed. fresh linen/pads applied. pt became extremely SOB when transferring from bed to commode and vice versa. 94% on RA. pt placed on 2L via NC to promote comfort. pt requesting breathing treatment via RT. RT called/notified/received inhaler via RT. pt now resting comfortably in bed in no apparent distress. bed alarm turned on for safety precautions. call oropeza placed within reach.
--- NOTE | 2023-06-16 15:18 | MHC.CM.ED ---
Patient remains in ER overflow. Received notification [facility] might have a male bed available tomorrow 06/17. Continue to monitor for d/c needs.
--- NOTE | 2023-06-16 16:09 | PC.NURSE ---
Patient requested breathing treatment,respiratory notified,lungs sounds slight expiratory wheezing noted bilaterally,appear comfortable
--- NOTE | 2023-06-16 19:56 | PC.NURSE ---
respiratory therapist ethan on way to give prn treatment per pt request- no wheezing noted, talking full sentences, +CSM.
[2023-06-16] MEDS: Acetaminophen 325 MG TABLET 975 MG PO (20:47)
--- NOTE | 2023-06-16 21:50 | MHC.EDTECH ---
pt. has Inc with urine. total care clan and fully bed change.
[2023-06-17] VITALS (7 sets, daily range): BP systolic 137–153; BP diastolic 64–69; PULSE 78–88; RESP 16–20; TEMP 36.1–36.7; O2SAT 94–98
[2023-06-17] MEDS: QUEtiapine Fumarate 25 MG TABLET PO ×4 (00:10→20:28)
--- NOTE | 2023-06-17 00:15 | PC.NURSE ---
Pt screaming and yelling requesting sleeping medication. Medicated with PRN. Monitoring is ongoing.
--- NOTE | 2023-06-17 08:21 | MHC.EDTECH ---
pt ate 100% of his breakfast. 240cc of fluids
--- NOTE | 2023-06-17 09:03 | MHC.EDTECH ---
This tech shaved the PT's face.
[2023-06-17] MEDS: hydroCHLOROthiazide 12.5 MG TABLET PO (09:07)
[2023-06-17] MEDS: amLODIPine Besylate 5 MG TABLET PO (09:08)
[2023-06-17] MEDS: Atorvastatin Calcium 20 MG TABLET PO (09:08)
[2023-06-17] MEDS: Cholecalciferol (Vitamin D3) 25 MCG TABLET PO (09:08)
[2023-06-17] MEDS: Aspirin Enteric Coated 81 MG TABLET.DR PO (09:08)
[2023-06-17] MEDS: Albuterol/Iprat 2.5/0.5MG 3 ML AMPUL.NEB INHALE ×2 (09:11→17:55)
[2023-06-17] MEDS: Fluticasone/Umeclidinium/Vilanterol 100/62.5/25 BLST.W.DEV 1 PUFF INHALE (09:11)
--- NOTE | 2023-06-17 11:58 | PC.NURSE ---
pt pleasant, resting in bed at this time with NAD. [place] cath in place to prevent incontinence and skin breakdown. pt this morning was irritable as it was 0810 and he had not received his breathing treatment yet, pt reassured respiratory would be by to administer is breathing treatment. pt with no complaints at this time. periodically he continues to have a wet cough, CXR from 06/11 reassuring.
[2023-06-17] MEDS: Albuterol Sulfate 90 MCG 8 GM INHALER 2 PUFF INHALE (12:06)
--- NOTE | 2023-06-17 12:12 | PC.NURSE ---
repositioned pt in bed during lunch, he was starting that he cannot eat, with the use of crab meat processor determined pt was having difficulty keeping his food on his utensils and acturally getting it into his mouth, assisted with feed at this time
--- NOTE | 2023-06-17 13:49 | MHC.CM.ED ---
Patient remains in ER overflow. [facility] does not have a bed available today but will continue to follow for when they do have a bed. Continue to monitor for d/c needs.
--- NOTE | 2023-06-17 15:19 | P.HPHOSP_ITS ---
History of Present Illness Date of Service: 06/17/23 Attending physician on admission: Timmy Pena Chief Complaint: SOB, awaiting long-term placement Pt is an 82-year-old [place] speaking male with a PMH significant for asthma/COPD overlap syndrome, HTN, HLD, mild cognitive disorder, hx of prostate cancer, and osteoarthritis of bilateral knees who initially presented to the ED on 05/26/2023 for evaluation of fall at home. Apparently patient fell out of bed as he was reaching to get his medications from his night stand. Reports striking his right forehead on the night stand, though denies LOC but stayed on the ground for at least [address] of face found fracture of nasal bone and anterior maxillary spine that required no intervention. Patient did receive 5 sutures in right eyebrow right, and IVF for elevated CPK 1599. Patient apparently was seen in the ED the day prior for a separate fall at home getting off his scooter. Given frequent falls and patient not feeling safe at home, was placed in physician observation. Pt was seen by PT and case management and placed in overflow awaiting senior living placement. During stay pt has experienced some SOB but overall has had no acute incidents and vitals have been stable. Patient seen and evaluated in room where he is resting comfortably. Complains of left leg cramping, which has been ongoing for past three weeks. Shortness of breath around baseline. Patient has no acute medical complaints. Patient will be brought to the medical floor and admitted to the hospital while awaiting long-term placement. Review of Systems 2 Review of Systems: Left leg cramping x3 weeks Chronic shortness of breath, around baseline Patient otherwise has no acute medical complaints at this time [facility] Medical History Anasarca COVID-19 COPD (chronic obstructive pulmonary disease) Allergic rhinitis Bilateral primary osteoarthritis of knee Hyperlipidemia Hypertension High cholesterol Prostate CA COPD (chronic obstructive pulmonary disease) Asthma Varicose veins of right lower extremity with inflammation Family History Other No family history of coronary artery disease Surgical History No pertinent past surgical history Social History Household Members: None Housing: Condominium Do you presently have visiting nurse or other home services: Yes (meghna - dtr and son are ANESTHESIOLOGY PHYSICIAN's) Unable to assess alcohol history related to: Unknown Alcohol intake: current Alcohol intake frequency: a few times a week Patient Tobacco Use Status: Never used Tobacco Second Hand Smoke Exposure: No Use of substances other than those prescribed or required for medical reasons: No Advance Directives: Yes Advance Directives on File: Yes Advance Directives Date on File: 03/09/22 service: No Current occupational status: retired and disabled Current occupation: right handed Meds Allergies Allergy/AdvReac Type Severity Reaction Status Date / Time No Known Allergies Allergy Unknown UNKNOWN Verified 09/16/21 20:25 [NO KNOWN ALLERGIES] Active Medications: Current Medications Acetaminophen (Acetaminophen 325 Mg Tablet) 975 mg PO Q8H PRN PRN Reason: Pain, Mild (Pain Scale 1-3) Last Admin: 06/16/23 20:47 Dose: 975 mg Albuterol Sulfate (Albuterol Sulfate 90 Mcg 8 Gm Inhaler) 2 puff INHALE Q4H PRN PRN Reason: Wheezing Last Admin: 06/17/23 12:06 Dose: 2 puff Albuterol/Ipratropium (Albuterol/Iprat 2.5/0.5mg 3 Ml Ampul.Neb) 3 ml INHALE Q6H PRN PRN Reason: Wheezing Last Admin: 06/17/23 09:11 Dose: 3 ml Amlodipine Besylate (Amlodipine Besylate 5 Mg Tablet) 5 mg PO DAILY [facility]; Protocol Last Admin: 06/17/23 09:08 Dose: 5 mg Aspirin (Aspirin Enteric Coated 81 Mg Tablet.Dr) 81 mg PO DAILY [facility] Last Admin: 06/17/23 09:08 Dose: 81 mg Atorvastatin Calcium (Atorvastatin Calcium 20 Mg Tablet) 20 mg PO DAILY [facility] Last Admin: 06/17/23 09:08 Dose: 20 mg Fluticasone/Umeclidinium/Vilanterol (Fluticasone/Umeclidinium/Vilanterol 100/62.5/25 Blst.W.Dev) 1 puff INHALE RDAILY [facility] Last Admin: 06/17/23 09:11 Dose: 1 puff Hydrochlorothiazide (Hydrochlorothiazide 12.5 Mg Tablet) 12.5 mg PO DAILY [facility]; Protocol Last Admin: 06/17/23 09:07 Dose: 12.5 mg Quetiapine Fumarate (Quetiapine Fumarate 25 Mg Tablet) 25 mg PO TID [facility] Last Admin: 06/17/23 09:08 Dose: 25 mg Quetiapine Fumarate (Quetiapine Fumarate 25 Mg Tablet) 25 mg PO Q6H PRN PRN Reason: Agitation/aggression Last Admin: 06/17/23 00:10 Dose: 25 mg Vitamin D (Cholecalciferol (Vitamin D3) 25 Mcg Tablet) 25 mcg PO DAILY [facility] Last Admin: 06/17/23 09:08 Dose: 25 mcg Home Medications Medication Instructions Recorded Confirmed Last Taken Type acetaminophen 650 mg 2 tab PO Q8H PRN Pain 10/18/21 05/26/23 Unknown History tablet,extended release albuterol sulfate 2.5 mg/3 mL 1 amp inhalation Q6H PRN wheezing 10/18/21 05/26/23 Unknown History (0.083 %) solution for nebulization albuterol sulfate 90 mcg/actuation 2 puff PO Q4-6H PRN Allergic 10/18/21 05/26/23 Unknown History aerosol inhaler (Ventolin HFA) Reaction amlodipine 5 mg tablet 1 tab PO DAILY 10/18/21 05/26/23 Unknown History aspirin 81 mg tablet,delayed 1 tab PO DAILY 10/18/21 05/26/23 Unknown History release atorvastatin 20 mg tablet 1 tab PO DAILY 10/18/21 05/26/23 Unknown History cholecalciferol (vitamin D3) 25 1 cap PO DAILY 10/18/21 05/26/23 Unknown History mcg (1,000 unit) capsule (Vitamin D3) hydrochlorothiazide 12.5 mg tablet 1 tab PO DAILY 10/18/21 05/26/23 Unknown History ipratropium 20 mcg-albuterol 100 1 puff PO QID PRN Shortness Of 10/18/21 05/26/23 Unknown History mcg/actuation mist for inhalation Breath Or Wheezing (Combivent Respimat) montelukast 10 mg tablet 1 tab PO QPM 10/18/21 05/26/23 Unknown History fluticasone fur. 100 mcg-umeclid 1 ea inhalation QAM 05/26/23 05/26/23 Unknown History 62.5 mcg-vilant 25 mcg inhalat.powder (Trelegy Ellipta) Physical Exam 2 Vital Signs and Narrative: Vital Signs: Last Vital Signs Temp 97.5 F 06/17/23 14:00 Pulse 78 06/17/23 14:00 Resp 17 06/17/23 14:00 BP 153/69 H 06/17/23 14:00 Pulse Ox 95 06/17/23 14:00 O2 Del Method Nasal Cannula 06/17/23 14:00 O2 Flow Rate 2 06/17/23 14:00 BMI result Body Mass Index 29.2 General: Alert and oriented to person, place, and mostly to situation, but not to time. Resting comfortably in bed. In no acute distress Resp: Mild diffuse wheezing bilaterally CVS: S1, S2, RRR GI: +BS, NT, no distention Skin: Warm, dry Neuro: Cranial nerves II-XII grossly intact bilaterally. Motor grossly intact bilaterally Extremities: No edema Psych: Appropriate affect Results Labs 06/11/23 11:06 06/11/23 11:06 Assessment and Plan (1) COPD (chronic obstructive pulmonary disease): Status: Acute Plan Pt is an 82-year-old [place] speaking male with a PMH significant for asthma/COPD overlap syndrome, HTN, HLD, mild cognitive disorder, hx of prostate cancer, and osteoarthritis of bilateral knees who initially presented to the ED on 05/26/2023 for evaluation of fall at home. Since then patient has been placed in overflow on physician observation. Patient will be brought to the medical floor and admitted to the hospital while awaiting long-term placement. Asthma/COPD overlap syndrome Not in acute exacerbation Continue home inhalers HTN Continue hydrochlorothiazide and amlodipine HLD Continue statin Mood disorder Continue quetiapine Full Code Attending:?Dr. Pena DVT Prophylaxis: Lovenox Patient will be brought to the medical floor and admitted to the hospital while awaiting long-term care placement. Quality Stroke Does the patient have a stroke diagnosis?: No VTE Prior VTE?: No VTE Risk Level:: Medical - moderate - high VTE Device Contraindication: Treatment Not Indicated VTE Drug Contraindication: N/A - Med Ordered
--- NOTE | 2023-06-17 15:43 | PC.NURSE ---
Pt resting comfortably in bed watching TV. Denies pain. [place] cath in place and draining yellow urine
[2023-06-17] MEDS: Enoxaparin Sodium 40 MG/0.4 ML SYRINGE SUBCUT (17:53)
--- NOTE | 2023-06-17 17:58 | MHC.EDTECH ---
Pt cleaned and repositioned with nurse.
--- NOTE | 2023-06-17 17:59 | PC.NURSE ---
Pt requesting an updraft. Stating he is having dfficulty breathing. Some wheezing noted. Resp therapist here, updraft given
--- NOTE | 2023-06-17 19:24 | MHC.CM.ED ---
Pt will be socially admitted pending LTC placement. [facility] is following. Bed assignment pending.
[2023-06-17] MEDS: Acetaminophen 325 MG TABLET 975 MG PO (20:28)
[2023-06-17] MEDS: Montelukast Sodium 10 MG TABLET PO (20:28)
--- NOTE | 2023-06-17 20:40 | MHC.EDTECH ---
This tech took over care at 1900. PT laying in bed. PT dry and external catheter in proper place. Urine present but doesn't need to be emptied yet. PT given a few sips of water, a warm blanket, face washed and vitals taken. PT asking about medications and is informed they will be given soon.
--- NOTE | 2023-06-17 21:58 | PC.NURSE ---
this rn assumed care of pt @ 1900 pt medicated according to dion pt provided with prn tylenol for pain per request of pt
--- NOTE | 2023-06-18 05:41 | PC.NURSE ---
Assumed care of patient. Patient resting comfortable throughout night
[2023-06-18 06:10] LABS: Hematocrit 39.5 % (42.0-52.0); Hemoglobin 14.1 g/dl (14.0-18.0); Mean Corpuscular HGB Conc 35.7 g/dl (31.0-36.0); Mean Corpuscular Hemoglobin 31.8 pg (27.0-33.0); Mean Corpuscular Volume 89.2 fL (80.0-98.0); Mean Platelet Volume 10.6 fL (9.4-12.4); Platelet Count 242 X10*3/uL (160-400); Red Blood Count 4.43 X10*6/uL (4.60-5.80); Red Cell Distribution Width 13.1 % (11.0-16.0); White Blood Count 7.9 X10*3/uL (4.8-10.8)
--- NOTE | 2023-06-18 06:18 | MHC.EDTECH ---
PT external catheter bag emptied with 700ml voided. PT clean and dry at this time. No BM.
[2023-06-18 06:27] LABS: Anion Gap 12 (12-20); Blood Urea Nitrogen 14 mg/dL (9-16); Calcium 8.8 mg/dL (8.4-10.2); Carbon Dioxide 29 mmol/L (22-29); Chloride 103 mmol/L (96-108); Creatinine Clr Calc Pharmacy 66.7; Estimated Glomerular Filt Rate > 60; Glucose Random 120 mg/dL (60-115); Potassium 3.6 mmol/L (3.3-5.1); Sodium 140 mmol/L (135-145)
[2023-06-18] MEDS: Fluticasone/Umeclidinium/Vilanterol 100/62.5/25 BLST.W.DEV 1 PUFF INHALE (07:32)
[2023-06-18] MEDS: Albuterol Sulfate 90 MCG 8 GM INHALER 2 PUFF INHALE ×3 (07:32→17:52)
[2023-06-18 07:33] VITALS: PULSE 81; RESP 16; O2SAT 95
[2023-06-18 07:46] VITALS: BP 146/69; PULSE 65; RESP 14; TEMP 36.2; O2SAT 97
[2023-06-18] MEDS: Atorvastatin Calcium 20 MG TABLET PO (08:54)
[2023-06-18] MEDS: Cholecalciferol (Vitamin D3) 25 MCG TABLET PO (08:55)
[2023-06-18] MEDS: Aspirin Enteric Coated 81 MG TABLET.DR PO (08:55)
[2023-06-18] MEDS: amLODIPine Besylate 5 MG TABLET PO (08:55)
[2023-06-18] MEDS: QUEtiapine Fumarate 25 MG TABLET PO ×3 (08:55→21:07)
[2023-06-18] MEDS: hydroCHLOROthiazide 12.5 MG TABLET PO (08:55)
--- NOTE | 2023-06-18 10:57 | PC.NURSE ---
no resp distress. breathing well. calm, coop. resting.
[2023-06-18 11:39] VITALS: PULSE 71; RESP 14; O2SAT 94
--- NOTE | 2023-06-18 14:42 | HO.PM.IMPN ---
Subjective Subjective Date of Service: 06/18/23 Interval History: No acute issues overnight Review of Systems Noncontributory Physical Exam Vital Signs: Vital Signs: Last Vital Signs Temp 97.2 F 06/18/23 07:46 Pulse 71 06/18/23 11:39 Resp 14 06/18/23 11:39 BP 146/69 H 06/18/23 07:46 Pulse Ox 97 06/18/23 07:46 O2 Del Method Nasal Cannula 06/18/23 07:46 O2 Flow Rate 3 06/18/23 07:46 BMI result Body Mass Index 29.2 Const: Other: Awake alert no acute distress Resp: Other: Clear to auscultation bilaterally no rales rhonchi or wheezes Cardio: Other: No S4; positive S1-S2; no S3 murmurs rubs or gallops Extrem: Other: No edema bilaterally Objective Data Active Medications Acetaminophen (Acetaminophen 325 Mg Tablet) 975 mg PO Q8H PRN PRN Reason: Pain, Mild (Pain Scale 1-3) Last Admin: 06/17/23 20:28 Dose: 975 mg Documented By: PAOLA Albuterol Sulfate (Albuterol Sulfate 90 Mcg 8 Gm Inhaler) 2 puff INHALE Q4H PRN PRN Reason: Wheezing Last Admin: 06/18/23 11:38 Dose: 2 puff Documented By: KAYLEIGH Amlodipine Besylate (Amlodipine Besylate 5 Mg Tablet) 5 mg PO DAILY [facility]; Protocol Last Admin: 06/18/23 08:55 Dose: 5 mg Documented By: MURALI Aspirin (Aspirin Enteric Coated 81 Mg Tablet.) 81 mg PO DAILY [facility] Last Admin: 06/18/23 08:55 Dose: 81 mg Documented By: MURALI Atorvastatin Calcium (Atorvastatin Calcium 20 Mg Tablet) 20 mg PO DAILY [facility] Last Admin: 06/18/23 08:54 Dose: 20 mg Documented By: MURALI Benzonatate (Benzonatate 100 Mg Capsule) 100 mg PO TID PRN PRN Reason: Cough Docusate Sodium (Docusate Sodium 100 Mg Capsule) 100 mg PO DAILY PRN PRN Reason: Constipation Enoxaparin Sodium (Enoxaparin Sodium 40 Mg/0.4 Ml Syringe) 40 mg SUBCUT Q24H [facility] Last Admin: 02/23/24 17:53 Dose: 40 mg Documented By: BAR Fluticasone/Umeclidinium/Vilanterol (Fluticasone/Umeclidinium/Vilanterol 100/62.5/25 Blst.W.Dev) 1 puff INHALE RDAILY [facility] Last Admin: 06/18/23 07:32 Dose: 1 puff Documented By: KAYLEIGH Hydrochlorothiazide (Hydrochlorothiazide 12.5 Mg Tablet) 12.5 mg PO DAILY [facility]; Protocol Last Admin: 06/18/23 08:55 Dose: 12.5 mg Documented By: MURALI Melatonin (Melatonin 3 Mg Tablet) 6 mg PO BEDTIME PRN PRN Reason: Insomnia Montelukast Sodium (Montelukast Sodium 10 Mg Tablet) 10 mg PO BEDTIME [facility] Last Admin: 06/17/23 20:28 Dose: 10 mg Documented By: PAOLA Ondansetron HCl (Ondansetron Hcl 4 Mg/2 Ml Vial) 4 mg IVPUSH Q8H PRN PRN Reason: Nausea and Vomiting Quetiapine Fumarate (Quetiapine Fumarate 25 Mg Tablet) 25 mg PO TID [facility] Last Admin: 06/18/23 08:55 Dose: 25 mg Documented By: MURALI Quetiapine Fumarate (Quetiapine Fumarate 25 Mg Tablet) 25 mg PO Q6H PRN PRN Reason: Agitation/aggression Last Admin: 06/17/23 00:10 Dose: 25 mg Documented By: KOMAL Sodium Chloride (0.9 % Sodium Chloride Flush 3 Ml Syringe) 3 ml IVFLUSH QSHIFT [facility] Last Admin: 06/18/23 08:42 Dose: Not Given Documented By: MURALI Non-Admin Reason: Previously Administered Vitamin D (Cholecalciferol (Vitamin D3) 25 Mcg Tablet) 25 mcg PO DAILY [facility] Last Admin: 06/18/23 08:55 Dose: 25 mcg Documented By: MURALI Labs 06/18/23 05:41 06/18/23 05:41 Labs: Laboratory Results - last 24 hr 06/18/23 05:41 MCV 89.2 MCH 31.8 MCHC 35.7 RDW 13.1 Plt Count 242 MPV 10.6 Absolute Nucleated RBC 0.000 Nucleated RBC % (auto) 0.0 Anion Gap 12 Estim Creat Clear Calc 66.7 Estimated GFR > 60 Random Glucose 120 H Calcium 8.8 Assessment and Plan (1) Major neurocognitive disorder: Status: Acute Plan Pt is an 82-year-old [place]ralt[place] speaking male with a PMH significant for asthma/COPD overlap syndrome, HTN, HLD, mild cognitive disorder, hx of prostate cancer, and osteoarthritis of bilateral knees who initially presented to the ED on 05/26/2023 for evaluation of fall at home. Since then patient has been placed in overflow on physician observation. Patient will be brought to the medical floor and admitted to the hospital while awaiting long-term placement. Asthma/COPD overlap syndrome Not in acute exacerbation Continue home inhalers HTN Continue hydrochlorothiazide and amlodipine HLD Continue statin Mood disorder Continue quetiapine Full Code Attending:?Dr. Pena DVT Prophylaxis: Lovenox Patient will be brought to the medical floor and admitted to the hospital while awaiting long-term care placement. Quality Stroke Does the patient have a stroke diagnosis?: No VTE Prior VTE?: No VTE Risk Level:: Medical - moderate - high VTE Device Contraindication: Treatment Not Indicated VTE Drug Contraindication: N/A - Med Ordered
[2023-06-18 16:00] VITALS: BP 139/78; PULSE 76; RESP 18; TEMP 36.3; O2SAT 92
[2023-06-18 17:52] VITALS: PULSE 78; RESP 18; O2SAT 91
[2023-06-18] MEDS: Enoxaparin Sodium 40 MG/0.4 ML SYRINGE SUBCUT (18:40)
[2023-06-18] MEDS: Montelukast Sodium 10 MG TABLET PO (21:07)
[2023-06-18 21:39] VITALS: PULSE 78; RESP 18
[2023-06-18] MEDS: Albuterol/Iprat 2.5/0.5MG 3 ML AMPUL.NEB INHALE (21:39)
--- NOTE | 2023-06-19 | MHC.EDTECH ---
PT coughing and motioning for his breathing treatment equipment. PT coughing resulted in external catheter to come off and PT found soiled. RN, [employer] and respiratory contacted at this time. PT catheter, sheets and hospital attire replaced with clean and dry.
[2023-06-19] MEDS: Albuterol Sulfate (0.083%) 2.5 MG/3 ML VIAL.NEB INHALE (00:46)
[2023-06-19 00:47] VITALS: PULSE 78; RESP 18; O2SAT 92
[2023-06-19] MEDS: methylPREDNISolone Sod Succ 125 MG/2 ML VIAL IVPUSH (01:01)
--- NOTE | 2023-06-19 06:47 | PC.NURSE ---
pt was agitated during the course of the shift. pt yelling and upset about his respiratory status stating that we are doing nothing for him, he needs steroids, and if we don't give him what he wants he will call his son to pick him up and take him home. pt noted to be wheezing which appears to be his baseline. MD was messaged and order was placed for duoneb treatments. received duoneb treatment and fell to sleep. once awake pt was upset again in regards to resp status. was yelling at this RN and tech. pt demanding to be suctioned as he was coughing up phlegm. pt took yankeur from this RN and was waving it yelling that if he doesn't get steroids he will like to go home. requesting to speak to MD. this RN messaged Dr Pyle. she is now at bedside. order placed for solu-medrol and for chest xray. IV placed in right AC. med given. pt fell back to sleep. at times during the night pt was taking off his [place] cath and noted to be saturated in urine. while changing him pt was making sexually inappropriate gestures at [facility]. he was instructed to stop and was easily redirectable. it was decided to keep cath off patient at this time.
--- NOTE | 2023-06-19 08:29 | MHC.EDTECH ---
Pt ate 100% of his breakfast. 120cc of juice. After Pt was done eating pt could not stop coughing. Suction was given to PT, suction has red blood in the tubing. RN AWARE.
[2023-06-19] MEDS: Benzonatate 100 MG CAPSULE PO (08:46)
[2023-06-19] MEDS: Aspirin Enteric Coated 81 MG TABLET.DR PO (08:46)
[2023-06-19] MEDS: amLODIPine Besylate 5 MG TABLET PO (08:47)
[2023-06-19] MEDS: QUEtiapine Fumarate 25 MG TABLET PO ×3 (08:47→21:03)
[2023-06-19] MEDS: Cholecalciferol (Vitamin D3) 25 MCG TABLET PO (08:47)
[2023-06-19] MEDS: Atorvastatin Calcium 20 MG TABLET PO (08:47)
[2023-06-19] MEDS: hydroCHLOROthiazide 12.5 MG TABLET PO (08:47)
[2023-06-19] MEDS: Fluticasone/Umeclidinium/Vilanterol 100/62.5/25 BLST.W.DEV 1 PUFF INHALE (09:15)
[2023-06-19 09:16] VITALS: PULSE 104; RESP 18; O2SAT 94
--- NOTE | 2023-06-19 12:34 | MHC.EDTECH ---
Pt ate 100% of his lunch, 240cc of fluids. Pt has not been incontinent.
--- NOTE | 2023-06-19 13:05 | MHC.EDTECH ---
Pt was incontinent of urine and is now washed up, and dry.
--- NOTE | 2023-06-19 13:47 | HO.PM.IMPN ---
Subjective Subjective Date of Service: 06/19/23 Interval History: Episode of shortness of breath relieved with nebulizer. X-ray negative Review of Systems Noncontributory Physical Exam Vital Signs: Vital Signs: Last Vital Signs Temp 97.4 F 06/18/23 16:00 Pulse 104 H 06/19/23 09:16 Resp 18 06/19/23 09:16 BP 139/78 06/18/23 16:00 Pulse Ox 92 06/18/23 16:00 O2 Del Method Room Air 06/18/23 16:00 O2 Flow Rate 3 06/18/23 07:46 BMI result Body Mass Index 29.2 Const: Other: Awake alert no acute distress Resp: Other: Clear to auscultation bilaterally no rales rhonchi or wheezes Cardio: Other: No S4; positive S1-S2; no S3 murmurs rubs or gallops Extrem: Other: No edema bilaterally Objective Data Active Medications Acetaminophen (Acetaminophen 325 Mg Tablet) 975 mg PO Q8H PRN PRN Reason: Pain, Mild (Pain Scale 1-3) Last Admin: 06/17/23 20:28 Dose: 975 mg Documented By: PAOLA Albuterol Sulfate (Albuterol Sulfate 90 Mcg 8 Gm Inhaler) 2 puff INHALE Q4H PRN PRN Reason: Wheezing Last Admin: 06/18/23 17:52 Dose: 2 puff Documented By: DEN Albuterol/Ipratropium (Albuterol/Iprat 2.5/0.5mg 3 Ml Ampul.Neb) 3 ml INHALE RQ4H WHILE AWAKE PRN PRN Reason: Shortness of Breath/Wheezing Last Admin: 06/18/23 21:39 Dose: 3 ml Documented By: JEAN MARIE Amlodipine Besylate (Amlodipine Besylate 5 Mg Tablet) 5 mg PO DAILY [facility]; Protocol Last Admin: 06/19/23 08:47 Dose: 5 mg Documented By: ISSAC Aspirin (Aspirin Enteric Coated 81 Mg Tablet.Dr) 81 mg PO DAILY [facility] Last Admin: 06/19/23 08:46 Dose: 81 mg Documented By: ISSAC Atorvastatin Calcium (Atorvastatin Calcium 20 Mg Tablet) 20 mg PO DAILY [facility] Last Admin: 06/19/23 08:47 Dose: 20 mg Documented By: ISSAC Benzonatate (Benzonatate 100 Mg Capsule) 100 mg PO TID PRN PRN Reason: Cough Last Admin: 06/19/23 08:46 Dose: 100 mg Documented By: ISSAC Docusate Sodium (Docusate Sodium 100 Mg Capsule) 100 mg PO DAILY PRN PRN Reason: Constipation Enoxaparin Sodium (Enoxaparin Sodium 40 Mg/0.4 Ml Syringe) 40 mg SUBCUT Q24H [facility] Last Admin: 06/18/23 18:40 Dose: 40 mg Documented By: THONY Fluticasone/Umeclidinium/Vilanterol (Fluticasone/Umeclidinium/Vilanterol 100/62.5/25 Blst.W.Dev) 1 puff INHALE RDAILY [facility] Last Admin: 06/19/23 09:15 Dose: 1 puff Documented By: KRISHNA Hydrochlorothiazide (Hydrochlorothiazide 12.5 Mg Tablet) 12.5 mg PO DAILY [facility]; Protocol Last Admin: 06/19/23 08:47 Dose: 12.5 mg Documented By: ISSAC Melatonin (Melatonin 3 Mg Tablet) 6 mg PO BEDTIME PRN PRN Reason: Insomnia Montelukast Sodium (Montelukast Sodium 10 Mg Tablet) 10 mg PO BEDTIME [facility] Last Admin: 06/18/23 21:07 Dose: 10 mg Documented By: ANMOL Ondansetron HCl (Ondansetron Hcl 4 Mg/2 Ml Vial) 4 mg IVPUSH Q8H PRN PRN Reason: Nausea and Vomiting Quetiapine Fumarate (Quetiapine Fumarate 25 Mg Tablet) 25 mg PO TID [facility] Last Admin: 06/19/23 08:47 Dose: 25 mg Documented By: ISSAC Quetiapine Fumarate (Quetiapine Fumarate 25 Mg Tablet) 25 mg PO Q6H PRN PRN Reason: Agitation/aggression Last Admin: 06/17/23 00:10 Dose: 25 mg Documented By: KOMAL Sodium Chloride (0.9 % Sodium Chloride Flush 3 Ml Syringe) 3 ml IVFLUSH QSHIFT [facility] Last Admin: 06/19/23 09:19 Dose: Not Given Documented By: ISSAC Non-Admin Reason: Previously Administered Vitamin D (Cholecalciferol (Vitamin D3) 25 Mcg Tablet) 25 mcg PO DAILY [facility] Last Admin: 06/19/23 08:47 Dose: 25 mcg Documented By: ISSAC Reza 06/18/23 05:41 06/18/23 05:41 Assessment and Plan (1) Major neurocognitive disorder: Status: Acute Plan Pt is an 82-year-old Slovenian speaking male with a PMH significant for asthma/COPD overlap syndrome, HTN, HLD, mild cognitive disorder, hx of prostate cancer, and osteoarthritis of bilateral knees who initially presented to the ED on 05/26/2023 for evaluation of fall at home. Since then patient has been placed in overflow on physician observation. Patient will be brought to the medical floor and admitted to the hospital while awaiting long-term placement. Asthma/COPD overlap syndrome Not in acute exacerbation Continue home inhalers HTN Continue hydrochlorothiazide and amlodipine HLD Continue statin Mood disorder Continue quetiapine Full Code Attending:?Dr. Pena DVT Prophylaxis: Lovenox Patient will be brought to the medical floor and admitted to the hospital while awaiting long-term care placement. Quality Stroke Does the patient have a stroke diagnosis?: No VTE Prior VTE?: No VTE Risk Level:: Medical - moderate - high VTE Device Contraindication: Treatment Not Indicated VTE Drug Contraindication: N/A - Med Ordered
[2023-06-19 14:52] VITALS: BP 169/74; PULSE 104; RESP 19; TEMP 36.2; O2SAT 94
[2023-06-19] MEDS: Albuterol/Iprat 2.5/0.5MG 3 ML AMPUL.NEB INHALE (15:57)
[2023-06-19] MEDS: 0.9 % Sodium Chloride Flush 3 ML SYRINGE IVFLUSH (16:00)
--- NOTE | 2023-06-19 16:10 | PC.NURSE ---
Addendum entered by Shirley Vernon RN 06/19/23 17:50: Pt requesting PRN albuterol inhaler. Administered per JUN. No change in respiratory status from previous note assessment. Original Note: Administerd PRN duoneb after pt c/o SOB, difficulty breathing. Upon assessment - respirations even and unlabored, no signs of respiratory distress. Interpretive services to bedside. Pt requesting 3 doses of prednisone because it makes him feel well. Attempted to educate pt on typical need for prednisone, which he does not meet at this time. Pt continues requesting 3 doses of prednisone. Pt offering new complaints during pt education - states he gets an electrical shock to his legs whenever he eats food. Offered pt PRN tylenol with dinner, pt agreeable. MD aware of pt request for prednisone and pt's lack of understanding with pt education. No new orders at this time. Plan of care ongoing.
[2023-06-19] MEDS: Enoxaparin Sodium 40 MG/0.4 ML SYRINGE SUBCUT (17:20)
[2023-06-19] MEDS: Acetaminophen 325 MG TABLET 975 MG PO (17:20)
--- NOTE | 2023-06-19 17:42 | MHC.CLN ---
pt ate 75% of his dinner. 240cc of fluids.
[2023-06-19] MEDS: Albuterol Sulfate 90 MCG 8 GM INHALER 2 PUFF INHALE (17:47)
--- NOTE | 2023-06-19 20:23 | PC.NURSE ---
Pt sitting up in bed watching TV. Pt requested and assisted with raising the hob. Plan of care ongoing.
[2023-06-19] MEDS: Montelukast Sodium 10 MG TABLET PO (21:03)
--- NOTE | 2023-06-19 21:05 | PC.NURSE ---
Pt continuously ringing for meds. Pt medicated per jun. Pt sitting in bed watching tv. plan of care ongoing.
[2023-06-19 21:49] VITALS: BP 134/66; PULSE 93; RESP 16; TEMP 36.6; O2SAT 92
[2023-06-20] VITALS: BP 161/75; PULSE 51; RESP 18; TEMP 36.7; O2SAT 90
[2023-06-20] MEDS: Fluticasone/Umeclidinium/Vilanterol 100/62.5/25 BLST.W.DEV 1 PUFF INHALE (08:16)
[2023-06-20 08:18] VITALS: RESP 18; O2SAT 95
[2023-06-20 09:09] VITALS: BP 135/62; PULSE 88; RESP 18; TEMP 36; O2SAT 94
[2023-06-20 09:36] VITALS: BMI 29.1
[2023-06-20 09:46] VITALS: BP 138/72; PULSE 74; RESP 17; TEMP 36.1; O2SAT 95
[2023-06-20] MEDS: Aspirin Enteric Coated 81 MG TABLET.DR PO (10:20)
[2023-06-20] MEDS: amLODIPine Besylate 5 MG TABLET PO (10:20)
[2023-06-20] MEDS: hydroCHLOROthiazide 12.5 MG TABLET PO (10:20)
[2023-06-20] MEDS: Atorvastatin Calcium 20 MG TABLET PO (10:20)
[2023-06-20] MEDS: Cholecalciferol (Vitamin D3) 25 MCG TABLET PO (10:21)
[2023-06-20] MEDS: 0.9 % Sodium Chloride Flush 3 ML SYRINGE IVFLUSH ×3 (10:21→20:21)
[2023-06-20] MEDS: QUEtiapine Fumarate 25 MG TABLET PO ×3 (10:21→20:21)
--- NOTE | 2023-06-20 10:50 | MHC.SL.SWA ---
Speech Pathologist Impression: Within Functional Limits Risk of Aspiration Due to: Neurological Condition Reduced Cognition Dysphasia Diet Status: No changes Liquid Consistency and Strategies for Safe Swallow: Liquid Intake Recommendation: Thin Liquid Intake Strategies: Small Sips Solid Food Consistency: Dietary Recommendations: Regular Additional Modifications to Solid Foods: Pt seen this morning for repeat swallow eval. Pt was able to feed himself without difficulty. He consumed regular texture solid and thin liquids. Pt demonstrated unremarkable oral phase, timely swallow, and no overt s/s of aspiration. All aspects of swallow deemed WFL. Recommend continue unmodified diet. Further ST intervention is no longer warranted. Please re-refer with any changes or further concern. Oral Medication Intake: Whole with Puree Please contact the pharmacy regarding appropriate crushable or liquid drug formulations that are available whenever modified delivery is recommended. Compensatory Strategies and Precautions to be Taken for Safe Swallow: Sitting Upright (90 deg) Small Bites and Sips Alternate Liquids/Solids Rate of Ingestion Change Supervision While Eating and Drinking for Safe Swallow: Intermittent Supervision Swallowing Recommended Treatments: Compens. Strategy Educat. Recommendation for Speech: D/C Logistics Planning Manager Clinican/Clinical Fellow: No Supervisory Statement: I have reviewed and agree with the student/clinical fellow's documentation: N/A Speech Language Pathologist: Lesa Griggs M.A., CCC-DIAMOND FINISHING SUPERVISOR
--- NOTE | 2023-06-20 11:57 | P.PNIM_ITS ---
Subjective Subjective Date of Service: 06/20/23 Interval History: f/u on placmement no new issues, cooperative, Physical Exam 2 Vital Signs: Vital Signs: Last Vital Signs Temp 97 F 06/20/23 09:46 Pulse 74 06/20/23 09:46 Resp 17 06/20/23 09:46 BP 138/72 06/20/23 09:46 Pulse Ox 95 06/20/23 09:46 O2 Del Method Nasal Cannula 06/20/23 09:46 O2 Flow Rate 3 06/20/23 09:46 BMI result Body Mass Index 29.1 General: AO X 2, no acute distress Resp: CTA bilateral CVS: S1,S2,RRR GI: +BS, NT, no distention Skin: No rash Neuro: motor grossly intact Psych: appropriate affect Objective Data Active Medications Acetaminophen (Acetaminophen 325 Mg Tablet) 975 mg PO Q8H PRN PRN Reason: Pain, Mild (Pain Scale 1-3) Last Admin: 06/19/23 17:20 Dose: 975 mg Documented By: ISSAC Albuterol Sulfate (Albuterol Sulfate 90 Mcg 8 Gm Inhaler) 2 puff INHALE Q4H PRN PRN Reason: Wheezing Last Admin: 06/19/23 17:47 Dose: 2 puff Documented By: ISSAC Albuterol/Ipratropium (Albuterol/Iprat 2.5/0.5mg 3 Ml Ampul.Neb) 3 ml INHALE RQ4H WHILE AWAKE PRN PRN Reason: Shortness of Breath/Wheezing Last Admin: 06/19/23 15:57 Dose: 3 ml Documented By: ISSAC Amlodipine Besylate (Amlodipine Besylate 5 Mg Tablet) 5 mg PO DAILY [facility]; Protocol Last Admin: 06/20/23 10:20 Dose: 5 mg Documented By: LEVY Aspirin (Aspirin Enteric Coated 81 Mg Tablet.Dr) 81 mg PO DAILY [facility] Last Admin: 06/20/23 10:20 Dose: 81 mg Documented By: LEVY Atorvastatin Calcium (Atorvastatin Calcium 20 Mg Tablet) 20 mg PO DAILY [facility] Last Admin: 06/20/23 10:20 Dose: 20 mg Documented By: LEVY Benzonatate (Benzonatate 100 Mg Capsule) 100 mg PO TID PRN PRN Reason: Cough Last Admin: 06/19/23 08:46 Dose: 100 mg Documented By: ISSAC Docusate Sodium (Docusate Sodium 100 Mg Capsule) 100 mg PO DAILY PRN PRN Reason: Constipation Enoxaparin Sodium (Enoxaparin Sodium 40 Mg/0.4 Ml Syringe) 40 mg SUBCUT Q24H [facility] Last Admin: 06/19/23 17:20 Dose: 40 mg Documented By: ISSAC Fluticasone/Umeclidinium/Vilanterol (Fluticasone/Umeclidinium/Vilanterol 100/62.5/25 Blst.W.Dev) 1 puff INHALE RDAILY [facility] Last Admin: 06/20/23 08:16 Dose: 1 puff Documented By: YAYO Hydrochlorothiazide (Hydrochlorothiazide 12.5 Mg Tablet) 12.5 mg PO DAILY [facility]; Protocol Last Admin: 06/20/23 10:20 Dose: 12.5 mg Documented By: LEVY Melatonin (Melatonin 3 Mg Tablet) 6 mg PO BEDTIME PRN PRN Reason: Insomnia Montelukast Sodium (Montelukast Sodium 10 Mg Tablet) 10 mg PO BEDTIME [facility] Last Admin: 06/19/23 21:03 Dose: 10 mg Documented By: ELPIDIO Ondansetron HCl (Ondansetron Hcl 4 Mg/2 Ml Vial) 4 mg IVPUSH Q8H PRN PRN Reason: Nausea and Vomiting Quetiapine Fumarate (Quetiapine Fumarate 25 Mg Tablet) 25 mg PO TID [facility] Last Admin: 06/20/23 10:21 Dose: 25 mg Documented By: LEVY Quetiapine Fumarate (Quetiapine Fumarate 25 Mg Tablet) 25 mg PO Q6H PRN PRN Reason: Agitation/aggression Last Admin: 06/17/23 00:10 Dose: 25 mg Documented By: KOMAL Sodium Chloride (0.9 % Sodium Chloride Flush 3 Ml Syringe) 3 ml IVFLUSH QSHIFT [facility] Last Admin: 06/20/23 10:21 Dose: 3 ml Documented By: LEVY Vitamin D (Cholecalciferol (Vitamin D3) 25 Mcg Tablet) 25 mcg PO DAILY [facility] Last Admin: 06/20/23 10:21 Dose: 25 mcg Documented By: LEVY Labs 06/18/23 05:41 06/18/23 05:41 Assessment and Plan (1) Major neurocognitive disorder: Status: Acute Plan Pt is an 82-year-old Maltese speaking male with a PMH significant for asthma/COPD overlap syndrome, HTN, HLD, mild cognitive disorder, hx of prostate cancer, and osteoarthritis of bilateral knees who initially presented to the ED on 05/26/2023 for evaluation of fall at home. Since then patient has been placed in overflow on physician observation. Patient will be brought to the medical floor and admitted to the hospital while awaiting long-term placement. Asthma/COPD overlap syndrome Not in acute exacerbation Continue home inhalers HTN Continue hydrochlorothiazide and amlodipine HLD Continue statin Mood disorder Continue quetiapine Full Code DVT Prophylaxis: Lovenox need for inpt: awaiting [facility] care Quality Stroke Does the patient have a stroke diagnosis?: No VTE Prior VTE?: No VTE Risk Level:: Medical - moderate - high VTE Device Contraindication: Treatment Not Indicated VTE Drug Contraindication: N/A - Med Ordered
--- NOTE | 2023-06-20 14:31 | MHC.CM.PN ---
PT IS MEDICALLY CLEARED FOR DC HOWEVER NO BED OFFERS AT THIS TIME. [facility] IS FOLLOWING FOR APPROP BED OFFER. PER [facility] LIAISON, THEY SHOULD HAVE SOMETHING OPENING UP FOR HIM THIS WEEK. CM WILL CONTINUE TO FOLLOW AND EXPAND REFERRALS NEEDED.
[2023-06-20 15:13] VITALS: BP 124/65; PULSE 72; RESP 20; TEMP 36.2; O2SAT 99
[2023-06-20] MEDS: Enoxaparin Sodium 40 MG/0.4 ML SYRINGE SUBCUT (17:39)
[2023-06-20 19:28] VITALS: BP 171/76; PULSE 82; RESP 18; TEMP 36; O2SAT 97
[2023-06-20] MEDS: Montelukast Sodium 10 MG TABLET PO (20:21)
[2023-06-20] MEDS: Benzonatate 100 MG CAPSULE PO (20:21)
[2023-06-21 03:49] VITALS: BP 154/72; PULSE 81; RESP 16; TEMP 36; O2SAT 97
[2023-06-21] MEDS: Albuterol/Iprat 2.5/0.5MG 3 ML AMPUL.NEB INHALE ×2 (07:45→18:01)
[2023-06-21] MEDS: Fluticasone/Umeclidinium/Vilanterol 100/62.5/25 BLST.W.DEV 1 PUFF INHALE (07:46)
[2023-06-21 07:48] VITALS: PULSE 82; RESP 18; O2SAT 98
[2023-06-21 08:00] VITALS: BP 126/59; PULSE 65; RESP 17; TEMP 36.2; O2SAT 95
--- NOTE | 2023-06-21 08:40 | HO.PM.IMPN ---
Subjective Subjective Date of Service: 06/21/23 Interval History: f/u on placmement c/o left knee pain Physical Exam Vital Signs: Vital Signs: Last Vital Signs Temp 97.1 F 06/21/23 08:00 Pulse 65 06/21/23 08:00 Resp 17 06/21/23 08:00 BP 126/59 L 06/21/23 08:00 Pulse Ox 95 06/21/23 08:00 O2 Del Method Nasal Cannula 06/21/23 08:00 O2 Flow Rate 1.0 06/21/23 08:00 BMI result Body Mass Index 29.1 General: AO X 2, no acute distress Resp: CTA bilateral CVS: S1,S2,RRR GI: +BS, NT, no distention Skin: No rash, swollen left knee with effusion, no redness Neuro: motor grossly intact Psych: appropriate affect Objective Data Active Medications Acetaminophen (Acetaminophen 325 Mg Tablet) 975 mg PO Q8H PRN PRN Reason: Pain, Mild (Pain Scale 1-3) Last Admin: 06/19/23 17:20 Dose: 975 mg Documented By: ISSAC Albuterol Sulfate (Albuterol Sulfate 90 Mcg 8 Gm Inhaler) 2 puff INHALE Q4H PRN PRN Reason: Wheezing Last Admin: 06/19/23 17:47 Dose: 2 puff Documented By: ISSAC Albuterol/Ipratropium (Albuterol/Iprat 2.5/0.5mg 3 Ml Ampul.Neb) 3 ml INHALE RQ4H WHILE AWAKE PRN PRN Reason: Shortness of Breath/Wheezing Last Admin: 06/21/23 07:45 Dose: 3 ml Documented By: ADELA Amlodipine Besylate (Amlodipine Besylate 5 Mg Tablet) 5 mg PO DAILY [facility]; Protocol Last Admin: 06/20/23 10:20 Dose: 5 mg Documented By: LEVY Aspirin (Aspirin Enteric Coated 81 Mg Tablet.) 81 mg PO DAILY [facility] Last Admin: 06/20/23 10:20 Dose: 81 mg Documented By: LEVY Atorvastatin Calcium (Atorvastatin Calcium 20 Mg Tablet) 20 mg PO DAILY [facility] Last Admin: 06/20/23 10:20 Dose: 20 mg Documented By: LEVY Benzonatate (Benzonatate 100 Mg Capsule) 100 mg PO TID PRN PRN Reason: Cough Last Admin: 06/20/23 20:21 Dose: 100 mg Documented By: STEPHANIE Docusate Sodium (Docusate Sodium 100 Mg Capsule) 100 mg PO DAILY PRN PRN Reason: Constipation Enoxaparin Sodium (Enoxaparin Sodium 40 Mg/0.4 Ml Syringe) 40 mg SUBCUT Q24H [facility] Last Admin: 06/20/23 17:39 Dose: 40 mg Documented By: SAMMIE Fluticasone/Umeclidinium/Vilanterol (Fluticasone/Umeclidinium/Vilanterol 100/62.5/25 Blst.W.Dev) 1 puff INHALE RDAILY [facility] Last Admin: 06/21/23 07:46 Dose: 1 puff Documented By: ADELA Hydrochlorothiazide (Hydrochlorothiazide 12.5 Mg Tablet) 12.5 mg PO DAILY [facility]; Protocol Last Admin: 06/20/23 10:20 Dose: 12.5 mg Documented By: LEVY Melatonin (Melatonin 3 Mg Tablet) 6 mg PO BEDTIME PRN PRN Reason: Insomnia Montelukast Sodium (Montelukast Sodium 10 Mg Tablet) 10 mg PO BEDTIME [facility] Last Admin: 06/20/23 20:21 Dose: 10 mg Documented By: STEPHANIE Ondansetron HCl (Ondansetron Hcl 4 Mg/2 Ml Vial) 4 mg IVPUSH Q8H PRN PRN Reason: Nausea and Vomiting Quetiapine Fumarate (Quetiapine Fumarate 25 Mg Tablet) 25 mg PO TID [facility] Last Admin: 06/20/23 20:21 Dose: 25 mg Documented By: STEPHANIE Quetiapine Fumarate (Quetiapine Fumarate 25 Mg Tablet) 25 mg PO Q6H PRN PRN Reason: Agitation/aggression Last Admin: 06/17/23 00:10 Dose: 25 mg Documented By: KOMAL Sodium Chloride (0.9 % Sodium Chloride Flush 3 Ml Syringe) 3 ml IVFLUSH QSHIFT [facility] Last Admin: 06/20/23 20:21 Dose: 3 ml Documented By: STEPHANIE Vitamin D (Cholecalciferol (Vitamin D3) 25 Mcg Tablet) 25 mcg PO DAILY [facility] Last Admin: 06/20/23 10:21 Dose: 25 mcg Documented By: LEVY Labs 06/18/23 05:41 06/18/23 05:41 Assessment and Plan (1) Major neurocognitive disorder: Status: Acute Plan Pt is an 82-year-old Upper Sor[place] speaking male with a PMH significant for asthma/COPD overlap syndrome, HTN, HLD, mild cognitive disorder, hx of prostate cancer, and osteoarthritis of bilateral knees who initially presented to the ED on 05/26/2023 for evaluation of fall at home. Since then patient has been placed in overflow on physician observation. Patient will be brought to the medical floor and admitted to the hospital while awaiting long-term placement. Asthma/COPD overlap syndrome Not in acute exacerbation Continue home inhalers HTN--controlled Continue hydrochlorothiazide and Amlodipine HLD--Continue statin left knee pain and effusion, xray, pain med Mood disorder Continue quetiapine Full Code DVT Prophylaxis: Lovenox need for inpt: awaiting [facility] care Quality Stroke Does the patient have a stroke diagnosis?: No VTE Prior VTE?: No VTE Risk Level:: Medical - moderate - high VTE Device Contraindication: Treatment Not Indicated VTE Drug Contraindication: N/A - Med Ordered
[2023-06-21 10:15] VITALS: BP 133/65; PULSE 85; RESP 17; TEMP 36.2; O2SAT 97
[2023-06-21] MEDS: amLODIPine Besylate 5 MG TABLET PO (10:29)
[2023-06-21] MEDS: Aspirin Enteric Coated 81 MG TABLET.DR PO (10:30)
[2023-06-21] MEDS: QUEtiapine Fumarate 25 MG TABLET PO ×3 (10:30→21:06)
[2023-06-21] MEDS: hydroCHLOROthiazide 12.5 MG TABLET PO (10:30)
[2023-06-21] MEDS: Cholecalciferol (Vitamin D3) 25 MCG TABLET PO (10:30)
[2023-06-21] MEDS: Atorvastatin Calcium 20 MG TABLET PO (10:30)
[2023-06-21 15:12] VITALS: BP 147/69; PULSE 55; RESP 18; TEMP 36.5; O2SAT 96
[2023-06-21] MEDS: 0.9 % Sodium Chloride Flush 3 ML SYRINGE IVFLUSH ×2 (15:53→21:06)
[2023-06-21] MEDS: Enoxaparin Sodium 40 MG/0.4 ML SYRINGE SUBCUT (18:00)
[2023-06-21 19:41] VITALS: BP 171/78; PULSE 83; RESP 20; TEMP 36.2; O2SAT 97
[2023-06-21] MEDS: Montelukast Sodium 10 MG TABLET PO (21:06)
[2023-06-22 03:46] VITALS: BP 148/69; PULSE 64; RESP 16; TEMP 36.1; O2SAT 96
[2023-06-22 07:24] VITALS: BP 141/66; PULSE 82; RESP 17; TEMP 36.2; O2SAT 97
--- NOTE | 2023-06-22 08:20 | P.PNIM_ITS ---
Subjective Subjective Date of Service: 06/22/23 Interval History: f/u on placmement no new issues Physical Exam 2 Vital Signs: Vital Signs: Last Vital Signs Temp 97.1 F 06/22/23 07:24 Pulse 82 06/22/23 07:24 Resp 17 06/22/23 07:24 BP 141/66 H 06/22/23 07:24 Pulse Ox 97 06/22/23 07:24 O2 Del Method Nasal Cannula 06/22/23 07:24 O2 Flow Rate 1.0 06/22/23 07:24 BMI result Body Mass Index 29.1 Objective Data Active Medications Acetaminophen (Acetaminophen 325 Mg Tablet) 975 mg PO Q8H PRN PRN Reason: Pain, Mild (Pain Scale 1-3) Last Admin: 06/19/23 17:20 Dose: 975 mg Documented By: ISSAC Albuterol Sulfate (Albuterol Sulfate 90 Mcg 8 Gm Inhaler) 2 puff INHALE Q4H PRN PRN Reason: Wheezing Last Admin: 06/19/23 17:47 Dose: 2 puff Documented By: ISSAC Albuterol/Ipratropium (Albuterol/Iprat 2.5/0.5mg 3 Ml Ampul.Neb) 3 ml INHALE RQ4H WHILE AWAKE PRN PRN Reason: Shortness of Breath/Wheezing Last Admin: 06/21/23 18:01 Dose: 3 ml Documented By: SAMMIE Amlodipine Besylate (Amlodipine Besylate 5 Mg Tablet) 5 mg PO DAILY [facility]; Protocol Last Admin: 06/21/23 10:29 Dose: 5 mg Documented By: SAMMIE Aspirin (Aspirin Enteric Coated 81 Mg Tablet.Dr) 81 mg PO DAILY [facility] Last Admin: 06/21/23 10:30 Dose: 81 mg Documented By: SAMMIE Atorvastatin Calcium (Atorvastatin Calcium 20 Mg Tablet) 20 mg PO DAILY [facility] Last Admin: 06/21/23 10:30 Dose: 20 mg Documented By: SAMMIE Benzonatate (Benzonatate 100 Mg Capsule) 100 mg PO TID PRN PRN Reason: Cough Last Admin: 06/20/23 20:21 Dose: 100 mg Documented By: MURISPierre Docusate Sodium (Docusate Sodium 100 Mg Capsule) 100 mg PO DAILY PRN PRN Reason: Constipation Enoxaparin Sodium (Enoxaparin Sodium 40 Mg/0.4 Ml Syringe) 40 mg SUBCUT Q24H [facility] Last Admin: 06/21/23 18:00 Dose: 40 mg Documented By: SAMMIE Fluticasone/Umeclidinium/Vilanterol (Fluticasone/Umeclidinium/Vilanterol 100/62.5/25 Blst.W.Dev) 1 puff INHALE RDAILY [facility] Last Admin: 06/22/23 07:51 Dose: Not Given Documented By: KAYLEIGH Non-Admin Reason: Patient Asleep Hydrochlorothiazide (Hydrochlorothiazide 12.5 Mg Tablet) 12.5 mg PO DAILY [facility]; Protocol Last Admin: 06/21/23 10:30 Dose: 12.5 mg Documented By: SAMMIE Melatonin (Melatonin 3 Mg Tablet) 6 mg PO BEDTIME PRN PRN Reason: Insomnia Montelukast Sodium (Montelukast Sodium 10 Mg Tablet) 10 mg PO BEDTIME [facility] Last Admin: 06/21/23 21:06 Dose: 10 mg Documented By: STEPHANIE Ondansetron HCl (Ondansetron Hcl 4 Mg/2 Ml Vial) 4 mg IVPUSH Q8H PRN PRN Reason: Nausea and Vomiting Quetiapine Fumarate (Quetiapine Fumarate 25 Mg Tablet) 25 mg PO TID [facility] Last Admin: 06/21/23 21:06 Dose: 25 mg Documented By: STEPHANIE Quetiapine Fumarate (Quetiapine Fumarate 25 Mg Tablet) 25 mg PO Q6H PRN PRN Reason: Agitation/aggression Last Admin: 06/17/23 00:10 Dose: 25 mg Documented By: KOMAL Sodium Chloride (0.9 % Sodium Chloride Flush 3 Ml Syringe) 3 ml IVFLUSH QSHIFT [facility] Last Admin: 06/21/23 21:06 Dose: 3 ml Documented By: STEPHANIE Vitamin D (Cholecalciferol (Vitamin D3) 25 Mcg Tablet) 25 mcg PO DAILY [facility] Last Admin: 06/21/23 10:30 Dose: 25 mcg Documented By: SAMMIE Labs 06/18/23 05:41 06/18/23 05:41 Assessment and Plan (1) Major neurocognitive disorder: Status: Acute (2) Mild cognitive disorder: Status: Acute Plan Pt is an 82-year-old Rwandan speaking male with a PMH significant for asthma/COPD overlap syndrome, HTN, HLD, mild cognitive disorder, hx of prostate cancer, and osteoarthritis of bilateral knees who initially presented to the ED on 05/26/2023 for evaluation of fall at home. Since then patient has been placed in overflow on physician observation. Patient will be brought to the medical floor and admitted to the hospital while awaiting long-term placement. Asthma/COPD overlap syndrome Not in acute exacerbation Continue home inhalers HTN--controlled Continue hydrochlorothiazide and Amlodipine HLD--Continue statin left knee pain and effusion, likely from OA, xray result pending Mood disorder Continue quetiapine Full Code DVT Prophylaxis: Lovenox need for inpt: awaiting nursing home care Quality Stroke Does the patient have a stroke diagnosis?: No VTE Prior VTE?: No VTE Risk Level:: Medical - moderate - high VTE Device Contraindication: Treatment Not Indicated VTE Drug Contraindication: N/A - Med Ordered
[2023-06-22 08:56] VITALS: PULSE 82; RESP 17; O2SAT 95
[2023-06-22] MEDS: Fluticasone/Umeclidinium/Vilanterol 100/62.5/25 BLST.W.DEV 1 PUFF INHALE (08:56)
[2023-06-22] MEDS: Cholecalciferol (Vitamin D3) 25 MCG TABLET PO (09:08)
[2023-06-22] MEDS: amLODIPine Besylate 5 MG TABLET PO (09:08)
[2023-06-22] MEDS: Aspirin Enteric Coated 81 MG TABLET.DR PO (09:08)
[2023-06-22] MEDS: Atorvastatin Calcium 20 MG TABLET PO (09:08)
[2023-06-22] MEDS: hydroCHLOROthiazide 12.5 MG TABLET PO (09:08)
[2023-06-22] MEDS: QUEtiapine Fumarate 25 MG TABLET PO ×3 (09:08→21:19)
[2023-06-22] MEDS: Albuterol Sulfate 90 MCG 8 GM INHALER 2 PUFF INHALE (12:07)
[2023-06-22] MEDS: 0.9 % Sodium Chloride Flush 3 ML SYRINGE IVFLUSH ×2 (12:09→16:25)
--- NOTE | 2023-06-22 13:28 | MHC.CM.PN ---
EMR REVIEWED. PT IS MEDICALLY CLEARED . [facility] IS FOLLOWING AND MAY BE ABLE TO OFFER A BED FRIDAY 06/23 PER LIAISON. LORIN FROM [facility] CALLED AND LEFT MESSAGE AND ASKED FOR A CALL BACK, RETURN CALL WITH NO ANSWER, MESSAGE LEFT.
[2023-06-22 15:23] VITALS: BP 138/65; PULSE 85; RESP 20; TEMP 36.2; O2SAT 94
[2023-06-22 17:21] VITALS: PULSE 85; RESP 20; O2SAT 94
[2023-06-22] MEDS: Albuterol/Iprat 2.5/0.5MG 3 ML AMPUL.NEB INHALE (17:21)
[2023-06-22] MEDS: Enoxaparin Sodium 40 MG/0.4 ML SYRINGE SUBCUT (17:45)
[2023-06-22 19:37] VITALS: BP 151/72; PULSE 82; RESP 19; TEMP 36.2; O2SAT 94
[2023-06-22] MEDS: Montelukast Sodium 10 MG TABLET PO (21:19)
[2023-06-23] VITALS (7 sets, daily range): BP systolic 130–150; BP diastolic 65–72; PULSE 65–80; RESP 16–20; TEMP 36–36.3; O2SAT 94–99
[2023-06-23] MEDS: 0.9 % Sodium Chloride Flush 3 ML SYRINGE IVFLUSH ×3 (00:25→15:44)
[2023-06-23] MEDS: Albuterol/Iprat 2.5/0.5MG 3 ML AMPUL.NEB INHALE (01:38)
[2023-06-23] MEDS: Acetaminophen 325 MG TABLET 975 MG PO ×2 (02:02→15:52)
[2023-06-23] MEDS: Fluticasone/Umeclidinium/Vilanterol 100/62.5/25 BLST.W.DEV 1 PUFF INHALE (07:33)
[2023-06-23] MEDS: Albuterol Sulfate 90 MCG 8 GM INHALER 2 PUFF INHALE ×2 (07:33→14:19)
--- NOTE | 2023-06-23 09:04 | HO.PM.IMPN ---
Subjective Subjective Date of Service: 06/23/23 Interval History: f/u on placmement stable, no new issues Physical Exam Vital Signs: Vital Signs: Last Vital Signs Temp 97.2 F 06/23/23 08:00 Pulse 75 06/23/23 08:00 Resp 16 06/23/23 08:00 BP 130/67 06/23/23 08:00 Pulse Ox 98 06/23/23 08:00 O2 Del Method Nasal Cannula 06/23/23 08:00 O2 Flow Rate 3.0 06/23/23 08:00 BMI result Body Mass Index 29.1 General: alert, oriente to self, hospital no acute distress Resp: CTA bilateral CVS: S1,S2,RRR GI: +BS, NT, no distention Skin: No rash musk: mild swelling of left knee, no redness Neuro: motor grossly intact Psych: appropriate affect Objective Data Active Medications Acetaminophen (Acetaminophen 325 Mg Tablet) 975 mg PO Q8H PRN PRN Reason: Pain, Mild (Pain Scale 1-3) Last Admin: 06/23/23 02:02 Dose: 975 mg Documented By: ADAM Albuterol Sulfate (Albuterol Sulfate 90 Mcg 8 Gm Inhaler) 2 puff INHALE Q4H PRN PRN Reason: Wheezing Last Admin: 06/23/23 07:33 Dose: 2 puff Documented By: KAYLEIGH Albuterol/Ipratropium (Albuterol/Iprat 2.5/0.5mg 3 Ml Ampul.Neb) 3 ml INHALE RQ4H WHILE AWAKE PRN PRN Reason: Shortness of Breath/Wheezing Last Admin: 06/23/23 01:38 Dose: 3 ml Documented By: DAVID Amlodipine Besylate (Amlodipine Besylate 5 Mg Tablet) 5 mg PO DAILY [facility]; Protocol Last Admin: 06/22/23 09:08 Dose: 5 mg Documented By: CLAUDIA Aspirin (Aspirin Enteric Coated 81 Mg Tablet.) 81 mg PO DAILY [facility] Last Admin: 06/22/23 09:08 Dose: 81 mg Documented By: CLAUDIA Atorvastatin Calcium (Atorvastatin Calcium 20 Mg Tablet) 20 mg PO DAILY [facility] Last Admin: 06/22/23 09:08 Dose: 20 mg Documented By: CLAUDIA Benzonatate (Benzonatate 100 Mg Capsule) 100 mg PO TID PRN PRN Reason: Cough Last Admin: 06/20/23 20:21 Dose: 100 mg Documented By: STEPHANIE Docusate Sodium (Docusate Sodium 100 Mg Capsule) 100 mg PO DAILY PRN PRN Reason: Constipation Enoxaparin Sodium (Enoxaparin Sodium 40 Mg/0.4 Ml Syringe) 40 mg SUBCUT Q24H [facility] Last Admin: 06/22/23 17:45 Dose: 40 mg Documented By: CLAUDIA Fluticasone/Umeclidinium/Vilanterol (Fluticasone/Umeclidinium/Vilanterol 100/62.5/25 Blst.W.Dev) 1 puff INHALE RDAILY [facility] Last Admin: 06/23/23 07:33 Dose: 1 puff Documented By: KAYLEIGH Hydrochlorothiazide (Hydrochlorothiazide 12.5 Mg Tablet) 12.5 mg PO DAILY [facility]; Protocol Last Admin: 06/22/23 09:08 Dose: 12.5 mg Documented By: CLAUDIA Melatonin (Melatonin 3 Mg Tablet) 6 mg PO BEDTIME PRN PRN Reason: Insomnia Montelukast Sodium (Montelukast Sodium 10 Mg Tablet) 10 mg PO BEDTIME [facility] Last Admin: 06/22/23 21:19 Dose: 10 mg Documented By: JAZMINE Ondansetron HCl (Ondansetron Hcl 4 Mg/2 Ml Vial) 4 mg IVPUSH Q8H PRN PRN Reason: Nausea and Vomiting Quetiapine Fumarate (Quetiapine Fumarate 25 Mg Tablet) 25 mg PO TID [facility] Last Admin: 06/22/23 21:19 Dose: 25 mg Documented By: JAZMINE Quetiapine Fumarate (Quetiapine Fumarate 25 Mg Tablet) 25 mg PO Q6H PRN PRN Reason: Agitation/aggression Last Admin: 06/17/23 00:10 Dose: 25 mg Documented By: KOMAL Sodium Chloride (0.9 % Sodium Chloride Flush 3 Ml Syringe) 3 ml IVFLUSH QSHIFT [facility] Last Admin: 06/23/23 00:25 Dose: 3 ml Documented By: ADAM Vitamin D (Cholecalciferol (Vitamin D3) 25 Mcg Tablet) 25 mcg PO DAILY [facility] Last Admin: 06/22/23 09:08 Dose: 25 mcg Documented By: CLAUDIA Labs 06/18/23 05:41 06/18/23 05:41 Assessment and Plan (1) Major neurocognitive disorder: Status: Acute (2) Mild cognitive disorder: Status: Acute Plan Pt is an 82-year-old Gabonese speaking male with a PMH significant for asthma/COPD overlap syndrome, HTN, HLD, mild cognitive disorder, hx of prostate cancer, and osteoarthritis of bilateral knees who initially presented to the ED on 05/26/2023 for evaluation of fall at home. Since then patient has been placed in overflow on physician observation. Patient will be brought to the medical floor and admitted to the hospital while awaiting long-term placement. Asthma/COPD overlap syndrome Not in acute exacerbation Continue home inhalers HTN--controlled Continue hydrochlorothiazide and Amlodipine HLD--Continue statin left knee pain and effusion xray show [id number] degenerative changes. conservative management Mood disorder Continue quetiapine Full Code DVT Prophylaxis: Lovenox need for inpt: awaiting shelter care out of bed, ambulate or at least to chair Quality Stroke Does the patient have a stroke diagnosis?: No VTE Prior VTE?: No VTE Risk Level:: Medical - moderate - high VTE Device Contraindication: Treatment Not Indicated VTE Drug Contraindication: N/A - Med Ordered
[2023-06-23] MEDS: Atorvastatin Calcium 20 MG TABLET PO (09:05)
[2023-06-23] MEDS: Cholecalciferol (Vitamin D3) 25 MCG TABLET PO (09:05)
[2023-06-23] MEDS: Aspirin Enteric Coated 81 MG TABLET.DR PO (09:05)
[2023-06-23] MEDS: amLODIPine Besylate 5 MG TABLET PO (09:05)
[2023-06-23] MEDS: QUEtiapine Fumarate 25 MG TABLET PO ×3 (09:05→19:42)
[2023-06-23] MEDS: hydroCHLOROthiazide 12.5 MG TABLET PO (09:05)
[2023-06-23] MEDS: Enoxaparin Sodium 40 MG/0.4 ML SYRINGE SUBCUT (18:14)
[2023-06-23] MEDS: Montelukast Sodium 10 MG TABLET PO (19:42)
[2023-06-24] VITALS (9 sets, daily range): BP systolic 131–153; BP diastolic 69–97; PULSE 63–91; RESP 14–20; TEMP 36.1–36.6; O2SAT 92–98
[2023-06-24] MEDS: 0.9 % Sodium Chloride Flush 3 ML SYRINGE IVFLUSH ×3 (00:31→15:45)
[2023-06-24] MEDS: Fluticasone/Umeclidinium/Vilanterol 100/62.5/25 BLST.W.DEV 1 PUFF INHALE (08:24)
[2023-06-24] MEDS: Aspirin Enteric Coated 81 MG TABLET.DR PO (09:24)
[2023-06-24] MEDS: amLODIPine Besylate 5 MG TABLET PO (09:24)
[2023-06-24] MEDS: Atorvastatin Calcium 20 MG TABLET PO (09:24)
[2023-06-24] MEDS: Acetaminophen 325 MG TABLET 975 MG PO ×2 (09:24→19:38)
[2023-06-24] MEDS: hydroCHLOROthiazide 12.5 MG TABLET PO (09:24)
[2023-06-24] MEDS: Cholecalciferol (Vitamin D3) 25 MCG TABLET PO (09:24)
[2023-06-24] MEDS: QUEtiapine Fumarate 25 MG TABLET PO ×3 (09:25→19:38)
--- NOTE | 2023-06-24 09:40 | P.DS_ITS ---
DS: Providers Provider Date of Service: 06/24/23 Date of admission: 06/17/23 16:26 Primary care physician: Rayne Og MD Consults: 05/27/23 08:39 Consult to Psychiatry Stat Consulting Provider: Jenny Logan Reason for consultation: for capacity Has provider been notified: Yes DS: Diagnosis Discharge Diagnosis (1) Major neurocognitive disorder: Status: Acute (2) Mild cognitive disorder: Status: Acute DS: Summary Hospital Course Hospital Course: Chief Complaint: SOB, awaiting long-term placement Pt is an 82-year-old Citizen Of [place] speaking male with a PMH significant for asthma/COPD overlap syndrome, HTN, HLD, mild cognitive disorder, hx of prostate cancer, and osteoarthritis of bilateral knees who initially presented to the ED on 05/26/2023 for evaluation of fall at home. Apparently patient fell out of bed as he was reaching to get his medications from his night stand. Reports striking his right forehead on the night stand, though denies LOC but stayed on the ground for at least [address] of face found fracture of nasal bone and anterior maxillary spine that required no intervention. Patient did receive 5 sutures in right eyebrow right, and IVF for elevated CPK 1599. Patient apparently was seen in the ED the day prior for a separate fall at home getting off his scooter. Given frequent falls and patient not feeling safe at home, was placed in physician observation. Pt was seen by PT and case management and placed in overflow awaiting prison placement. During stay pt has experienced some SOB but overall has had no acute incidents and vitals have been stable. Patient seen and evaluated in room where he is resting comfortably. Complains of left leg cramping, which has been ongoing for past three weeks. Shortness of breath around baseline. Patient has no acute medical complaints. Patient was brought to the medical floor and admitted to the hospital while awaiting long- term placement. Hospital course: Pt is an 82-year-old Citizen Of [place] speaking male with a PMH significant for asthma/COPD overlap syndrome, HTN, HLD, mild cognitive disorder, hx of prostate cancer, and osteoarthritis of bilateral knees who initially presented to the ED on 05/26/2023 for evaluation of fall at home. Since then patient has been placed in overflow on physician observation. Patient will be brought to the medical floor and admitted to the hospital while awaiting long-term placement. Asthma/COPD overlap syndrome Not in acute exacerbation Continue home inhalers HTN--controlled Continue hydrochlorothiazide and Amlodipine HLD--Continue statin left knee pain and effusion xray show Hpfvhtur-un-aznzba degenerative changes. conservative management, Tyelenol PRN Mood disorder Continue quetiapine Dispo: To prison care Time Attestation Discharge coordination time: Greater than 30 minutes Quality: Safe Use of Opioids Does Pt have an Active Cancer Diagnosis on the Problem List?: No Quality: Stroke Does the patient have a stroke diagnosis?: No Physical Exam Vital Signs: Vital Signs: Selected Entries 06/27/23 07:41 Temperature 97.4 F Pulse Rate 74 Blood Pressure 139/63 Pulse Oximetry 94 Oxygen Delivery Me thod Nasal Cannula General: alert, oriente to self, hospital no acute distress Resp: CTA bilateral CVS: S1,S2,RRR GI: +BS, NT, no distention Skin: No rash musk: mild swelling of left knee, no redness Neuro: motor grossly intact Psych: appropriate affect Discharge Plan Discharge Anticipated Discharge Date/Time: 06/27/23 09:43 Patient Disposition: Xfer SNF Discharge Diagnosis: Dementia Referrals: Danika Siegel [facility] [Outside] - 1 Week Rayne Brizuela MD [Primary Care Provider] - 1 Week Discharge Medications: New quetiapine 25 mg Tablet 25 mg PO Q6H PRN (Reason: Agitation/aggression) Qty: 20 0RF Continued atorvastatin 20 mg tablet 1 tab PO DAILY albuterol sulfate 2.5 mg /3 mL (0.083 %) solution for nebulization 1 amp inhalation Q6H PRN (Reason: wheezing) amlodipine 5 mg tablet 1 tab PO DAILY aspirin 81 mg tablet,delayed release (DR/EC) 1 tab PO DAILY acetaminophen 650 mg tablet extended release 2 tab PO Q8H PRN (Reason: Pain) montelukast 10 mg tablet 1 tab PO QPM albuterol sulfate [Ventolin HFA] 90 mcg/actuation HFA aerosol inhaler 2 puff PO Q4-6H PRN (Reason: Allergic Reaction) cholecalciferol (vitamin D3) [Vitamin D3] 25 mcg (1,000 unit) capsule 1 cap PO DAILY hydrochlorothiazide 12.5 mg tablet 1 tab PO DAILY Combivent Respimat 20-100 mcg/actuation mist 1 puff PO QID PRN (Reason: Shortness Of Breath Or Wheezing) quetiapine [Seroquel] 25 mg tablet 25 mg PO BEDTIME Qty: 30 0RF Trelegy Ellipta 100-62.5-25 mcg blister with device 1 ea inhalation QAM Discontinued quetiapine [Seroquel] 25 mg tablet 12.5 mg PO BID PRN (Reason: Agitation/aggression) Qty: 30 0RF Rx Instructions: You may get 12.5-25 mg twice daily as needed for agitation Discharge Orders: Discharge Order (Routine); Ordered 06/27/23 Ordered By: Kai Badillo Diet: Diabetic diet Activity on Discharge: As tolerated Stand Alone Forms: Patient Portal Discharge page Activity Restrictions/Additional Instructions: Please have your 5 sutures removed in 5 days. Care Plan Goals: To be in an safe environement, fall prevention Health Concerns: cognitive delcine copd falls Plan of Treatment: To [facility] care, continue meds as above Assessment: see above
[2023-06-24] MEDS: Albuterol/Iprat 2.5/0.5MG 3 ML AMPUL.NEB INHALE ×3 (11:29→23:07)
--- NOTE | 2023-06-24 13:58 | MHC.CM.PN ---
EMR REVIEWED, PT REMAINS MEDICALLY CLEARED BUT WITH NO BED OFFERS. [facility] DOES NOT HAVE A MALE BED AVAILABLE FOR HIM TODAY STATED EARLIER IN THE WEEK, CM WILL CONTINUE TO PURSUE A LTC BED OFFER.
--- NOTE | 2023-06-24 14:22 | HO.PM.IMPN ---
Subjective Subjective Date of Service: 06/24/23 Interval History: Not new issues, waiting for a snf bed Physical Exam Vital Signs: Vital Signs: Last Vital Signs Temp 97 F 06/24/23 08:00 Pulse 66 06/24/23 11:32 Resp 16 06/24/23 11:32 BP 131/97 H 06/24/23 08:00 Pulse Ox 94 06/24/23 08:00 O2 Del Method Room Air 06/24/23 08:00 O2 Flow Rate 3 06/24/23 04:00 BMI result Body Mass Index 29.1 Objective Data Active Medications Acetaminophen (Acetaminophen 325 Mg Tablet) 975 mg PO Q8H PRN PRN Reason: Pain, Mild (Pain Scale 1-3) Last Admin: 06/24/23 09:24 Dose: 975 mg Documented By: HATTIE Albuterol Sulfate (Albuterol Sulfate 90 Mcg 8 Gm Inhaler) 2 puff INHALE Q4H PRN PRN Reason: Wheezing Last Admin: 06/23/23 14:19 Dose: 2 puff Documented By: KAYLEIGH Albuterol/Ipratropium (Albuterol/Iprat 2.5/0.5mg 3 Ml Ampul.Neb) 3 ml INHALE RQ4H WHILE AWAKE PRN PRN Reason: Shortness of Breath/Wheezing Last Admin: 06/24/23 11:29 Dose: 3 ml Documented By: ARLINE Amlodipine Besylate (Amlodipine Besylate 5 Mg Tablet) 5 mg PO DAILY [facility]; Protocol Last Admin: 06/24/23 09:24 Dose: 5 mg Documented By: HATTIE Aspirin (Aspirin Enteric Coated 81 Mg Tablet.Dr) 81 mg PO DAILY [facility] Last Admin: 06/24/23 09:24 Dose: 81 mg Documented By: HATTIE Atorvastatin Calcium (Atorvastatin Calcium 20 Mg Tablet) 20 mg PO DAILY [facility] Last Admin: 06/24/23 09:24 Dose: 20 mg Documented By: HATTIE Benzonatate (Benzonatate 100 Mg Capsule) 100 mg PO TID PRN PRN Reason: Cough Last Admin: 06/20/23 20:21 Dose: 100 mg Documented By: MURISPierre Docusate Sodium (Docusate Sodium 100 Mg Capsule) 100 mg PO DAILY PRN PRN Reason: Constipation Enoxaparin Sodium (Enoxaparin Sodium 40 Mg/0.4 Ml Syringe) 40 mg SUBCUT Q24H [facility] Last Admin: 06/23/23 18:14 Dose: 40 mg Documented By: JAZMINE Fluticasone/Umeclidinium/Vilanterol (Fluticasone/Umeclidinium/Vilanterol 100/62.5/25 Blst.W.Dev) 1 puff INHALE RDAILY [facility] Last Admin: 06/24/23 08:24 Dose: 1 puff Documented By: ARLINE Hydrochlorothiazide (Hydrochlorothiazide 12.5 Mg Tablet) 12.5 mg PO DAILY [facility]; Protocol Last Admin: 06/24/23 09:24 Dose: 12.5 mg Documented By: HATTIE Melatonin (Melatonin 3 Mg Tablet) 6 mg PO BEDTIME PRN PRN Reason: Insomnia Montelukast Sodium (Montelukast Sodium 10 Mg Tablet) 10 mg PO BEDTIME [facility] Last Admin: 06/23/23 19:42 Dose: 10 mg Documented By: JAZMINE Ondansetron HCl (Ondansetron Hcl 4 Mg/2 Ml Vial) 4 mg IVPUSH Q8H PRN PRN Reason: Nausea and Vomiting Quetiapine Fumarate (Quetiapine Fumarate 25 Mg Tablet) 25 mg PO TID [facility] Last Admin: 06/24/23 09:25 Dose: 25 mg Documented By: HATTIE Quetiapine Fumarate (Quetiapine Fumarate 25 Mg Tablet) 25 mg PO Q6H PRN PRN Reason: Agitation/aggression Last Admin: 06/17/23 00:10 Dose: 25 mg Documented By: KOMAL Sodium Chloride (0.9 % Sodium Chloride Flush 3 Ml Syringe) 3 ml IVFLUSH QSHIFT [facility] Last Admin: 06/24/23 09:25 Dose: 3 ml Documented By: HATTIE Vitamin D (Cholecalciferol (Vitamin D3) 25 Mcg Tablet) 25 mcg PO DAILY [facility] Last Admin: 06/24/23 09:24 Dose: 25 mcg Documented By: HATTIE Labs 06/18/23 05:41 06/18/23 05:41 Assessment and Plan (1) Major neurocognitive disorder: Status: Acute (2) Mild cognitive disorder: Status: Acute (3) COPD (chronic obstructive pulmonary disease): Status: Acute Plan Pt is an 82-year-old [place]ese speaking male with a PMH significant for asthma/COPD overlap syndrome, HTN, HLD, mild cognitive disorder, hx of prostate cancer, and osteoarthritis of bilateral knees who initially presented to the ED on 05/26/2023 for evaluation of fall at home. Since then patient has been placed in overflow on physician observation. Patient will be brought to the medical floor and admitted to the hospital while awaiting long-term placement. Asthma/COPD overlap syndrome Not in acute exacerbation Continue home inhalers HTN--controlled Continue hydrochlorothiazide and Amlodipine HLD--Continue statin left knee pain and effusion xray show Bwsubboy-vs-lcjugm degenerative changes. conservative management, Tyelenol PRN Mood disorder Continue quetiapine Dispo: To [facility] care Quality Stroke Does the patient have a stroke diagnosis?: No VTE Prior VTE?: No VTE Risk Level:: Medical - moderate - high VTE Device Contraindication: Treatment Not Indicated VTE Drug Contraindication: N/A - Med Ordered
[2023-06-24] MEDS: Enoxaparin Sodium 40 MG/0.4 ML SYRINGE SUBCUT (17:21)
[2023-06-24] MEDS: Montelukast Sodium 10 MG TABLET PO (19:38)
[2023-06-25] VITALS (9 sets, daily range): BP systolic 123–157; BP diastolic 63–73; PULSE 69–92; RESP 17–21; TEMP 36.1–37; O2SAT 93–945
[2023-06-25] MEDS: 0.9 % Sodium Chloride Flush 3 ML SYRINGE IVFLUSH ×2 (00:28→09:22)
[2023-06-25] MEDS: Albuterol/Iprat 2.5/0.5MG 3 ML AMPUL.NEB INHALE ×3 (06:06→19:59)
[2023-06-25] MEDS: amLODIPine Besylate 5 MG TABLET PO (09:22)
[2023-06-25] MEDS: Atorvastatin Calcium 20 MG TABLET PO (09:22)
[2023-06-25] MEDS: hydroCHLOROthiazide 12.5 MG TABLET PO (09:22)
[2023-06-25] MEDS: QUEtiapine Fumarate 25 MG TABLET PO ×3 (09:22→20:56)
[2023-06-25] MEDS: Aspirin Enteric Coated 81 MG TABLET.DR PO (09:22)
[2023-06-25] MEDS: Cholecalciferol (Vitamin D3) 25 MCG TABLET PO (09:22)
--- NOTE | 2023-06-25 11:27 | HO.PM.IMPN ---
Subjective Subjective Date of Service: 06/25/23 Interval History: Doing ok, has no new issues or complaint Physical Exam Vital Signs: Vital Signs: Last Vital Signs Temp 98 F 06/25/23 06:56 Pulse 69 06/25/23 06:56 Resp 17 06/25/23 06:56 BP 137/68 06/25/23 06:56 Pulse Ox 98 06/25/23 06:56 O2 Del Method Nasal Cannula 06/25/23 06:56 O2 Flow Rate 2 06/25/23 06:56 BMI result Body Mass Index 29.1 General: AO X 2, no acute distress Resp: CTA bilateral CVS: S1,S2,RRR GI: +BS, NT, no distention Skin: No rash, swollen left knee with effusion, no redness Neuro: motor grossly intact Psych: appropriate affect Objective Data Active Medications Acetaminophen (Acetaminophen 325 Mg Tablet) 975 mg PO Q8H PRN PRN Reason: Pain, Mild (Pain Scale 1-3) Last Admin: 06/24/23 19:38 Dose: 975 mg Documented By: JAZMINE Albuterol Sulfate (Albuterol Sulfate 90 Mcg 8 Gm Inhaler) 2 puff INHALE Q4H PRN PRN Reason: Wheezing Last Admin: 06/23/23 14:19 Dose: 2 puff Documented By: KAYLEIGH Albuterol/Ipratropium (Albuterol/Iprat 2.5/0.5mg 3 Ml Ampul.Neb) 3 ml INHALE RQ4H WHILE AWAKE PRN PRN Reason: Shortness of Breath/Wheezing Last Admin: 06/25/23 06:06 Dose: 3 ml Documented By: KEVON Amlodipine Besylate (Amlodipine Besylate 5 Mg Tablet) 5 mg PO DAILY [facility]; Protocol Last Admin: 06/25/23 09:22 Dose: 5 mg Documented By: SAMMIE Aspirin (Aspirin Enteric Coated 81 Mg Tablet.) 81 mg PO DAILY [facility] Last Admin: 06/25/23 09:22 Dose: 81 mg Documented By: SAMMIE Atorvastatin Calcium (Atorvastatin Calcium 20 Mg Tablet) 20 mg PO DAILY [facility] Last Admin: 06/25/23 09:22 Dose: 20 mg Documented By: SAMMIE Benzonatate (Benzonatate 100 Mg Capsule) 100 mg PO TID PRN PRN Reason: Cough Last Admin: 06/20/23 20:21 Dose: 100 mg Documented By: ODRISPierre Docusate Sodium (Docusate Sodium 100 Mg Capsule) 100 mg PO DAILY PRN PRN Reason: Constipation Enoxaparin Sodium (Enoxaparin Sodium 40 Mg/0.4 Ml Syringe) 40 mg SUBCUT Q24H [facility] Last Admin: 06/24/23 17:21 Dose: 40 mg Documented By: JAZMINE Fluticasone/Umeclidinium/Vilanterol (Fluticasone/Umeclidinium/Vilanterol 100/62.5/25 Blst.W.Dev) 1 puff INHALE RDAILY [facility] Last Admin: 06/24/23 08:24 Dose: 1 puff Documented By: ARLINE Hydrochlorothiazide (Hydrochlorothiazide 12.5 Mg Tablet) 12.5 mg PO DAILY [facility]; Protocol Last Admin: 06/25/23 09:22 Dose: 12.5 mg Documented By: SAMMIE Melatonin (Melatonin 3 Mg Tablet) 6 mg PO BEDTIME PRN PRN Reason: Insomnia Montelukast Sodium (Montelukast Sodium 10 Mg Tablet) 10 mg PO BEDTIME [facility] Last Admin: 06/24/23 19:38 Dose: 10 mg Documented By: JAZMINE Ondansetron HCl (Ondansetron Hcl 4 Mg/2 Ml Vial) 4 mg IVPUSH Q8H PRN PRN Reason: Nausea and Vomiting Quetiapine Fumarate (Quetiapine Fumarate 25 Mg Tablet) 25 mg PO TID [facility] Last Admin: 06/25/23 09:22 Dose: 25 mg Documented By: SAMMIE Quetiapine Fumarate (Quetiapine Fumarate 25 Mg Tablet) 25 mg PO Q6H PRN PRN Reason: Agitation/aggression Last Admin: 06/17/23 00:10 Dose: 25 mg Documented By: KOMAL Sodium Chloride (0.9 % Sodium Chloride Flush 3 Ml Syringe) 3 ml IVFLUSH QSHIFT [facility] Last Admin: 06/25/23 09:22 Dose: 3 ml Documented By: SAMMIE Vitamin D (Cholecalciferol (Vitamin D3) 25 Mcg Tablet) 25 mcg PO DAILY [facility] Last Admin: 06/25/23 09:22 Dose: 25 mcg Documented By: SAMMIE Labs 06/18/23 05:41 06/18/23 05:41 Assessment and Plan (1) Major neurocognitive disorder: Status: Acute (2) Mild cognitive disorder: Status: Acute (3) COPD (chronic obstructive pulmonary disease): Status: Acute Plan Pt is an 82-year-old [place] speaking male with a PMH significant for asthma/COPD overlap syndrome, HTN, HLD, mild cognitive disorder, hx of prostate cancer, and osteoarthritis of bilateral knees who initially presented to the ED on 05/26/2023 for evaluation of fall at home. Since then patient has been placed in overflow on physician observation. Patient will be brought to the medical floor and admitted to the hospital while awaiting long-term placement. essentially no change in care at this time, awairing placement Asthma/COPD overlap syndrome Not in acute exacerbation Continue home inhalers HTN--controlled Continue hydrochlorothiazide and Amlodipine HLD--Continue statin left knee pain and effusion xray show Gsgothwi-rv-cqryeb degenerative changes. conservative management, Tyelenol PRN Mood disorder Continue quetiapine Dispo: To custodial care Quality Stroke Does the patient have a stroke diagnosis?: No VTE Prior VTE?: No VTE Risk Level:: Medical - moderate - high VTE Device Contraindication: Treatment Not Indicated VTE Drug Contraindication: N/A - Med Ordered
[2023-06-25] MEDS: Fluticasone/Umeclidinium/Vilanterol 100/62.5/25 BLST.W.DEV 1 PUFF INHALE (15:11)
[2023-06-25] MEDS: Enoxaparin Sodium 40 MG/0.4 ML SYRINGE SUBCUT (17:15)
[2023-06-25] MEDS: Montelukast Sodium 10 MG TABLET PO (20:56)
[2023-06-25] MEDS: Acetaminophen 325 MG TABLET 975 MG PO (20:56)
[2023-06-26 03:30] VITALS: BP 129/66; PULSE 71; RESP 18; TEMP 36.4; O2SAT 94
[2023-06-26 06:43] VITALS: BP 139/63; PULSE 65; RESP 18; TEMP 35.5; O2SAT 96
[2023-06-26 08:18] VITALS: PULSE 65; RESP 18; O2SAT 94
[2023-06-26] MEDS: Fluticasone/Umeclidinium/Vilanterol 100/62.5/25 BLST.W.DEV 1 PUFF INHALE (08:18)
[2023-06-26] MEDS: Albuterol/Iprat 2.5/0.5MG 3 ML AMPUL.NEB INHALE ×2 (08:28→18:28)
[2023-06-26] MEDS: hydroCHLOROthiazide 12.5 MG TABLET PO (08:48)
[2023-06-26] MEDS: Atorvastatin Calcium 20 MG TABLET PO (08:48)
[2023-06-26] MEDS: QUEtiapine Fumarate 25 MG TABLET PO ×3 (08:48→20:25)
[2023-06-26] MEDS: Cholecalciferol (Vitamin D3) 25 MCG TABLET PO (08:49)
[2023-06-26] MEDS: Aspirin Enteric Coated 81 MG TABLET.DR PO (08:49)
[2023-06-26] MEDS: amLODIPine Besylate 5 MG TABLET PO (08:49)
--- NOTE | 2023-06-26 11:03 | P.PNIM_ITS ---
Subjective Subjective Date of Service: 06/27/23 Interval History: no new issues, respiratory status is stable. Physical Exam 2 Vital Signs: Vital Signs: Last Vital Signs Temp 96 F L 06/26/23 06:43 Pulse 65 06/26/23 08:18 Resp 18 06/26/23 08:18 BP 139/63 06/26/23 06:43 Pulse Ox 96 06/26/23 06:43 O2 Del Method Room Air 06/26/23 06:43 O2 Flow Rate 1 06/25/23 20:00 BMI result Body Mass Index 29.1 Objective Data Active Medications Acetaminophen (Acetaminophen 325 Mg Tablet) 975 mg PO Q8H PRN PRN Reason: Pain, Mild (Pain Scale 1-3) Last Admin: 06/25/23 20:56 Dose: 975 mg Documented By: VIRGINIE Albuterol Sulfate (Albuterol Sulfate 90 Mcg 8 Gm Inhaler) 2 puff INHALE Q4H PRN PRN Reason: Wheezing Last Admin: 06/23/23 14:19 Dose: 2 puff Documented By: KAYLEIGH Albuterol/Ipratropium (Albuterol/Iprat 2.5/0.5mg 3 Ml Ampul.Neb) 3 ml INHALE RQ4H WHILE AWAKE PRN PRN Reason: Shortness of Breath/Wheezing Stop: 07/10/23 08:24 Last Admin: 06/26/23 08:28 Dose: 3 ml Documented By: ADELA Amlodipine Besylate (Amlodipine Besylate 5 Mg Tablet) 5 mg PO DAILY [facility]; Protocol Last Admin: 06/26/23 08:49 Dose: 5 mg Documented By: LEVY Aspirin (Aspirin Enteric Coated 81 Mg Tablet.Dr) 81 mg PO DAILY [facility] Last Admin: 06/26/23 08:49 Dose: 81 mg Documented By: LEVY Atorvastatin Calcium (Atorvastatin Calcium 20 Mg Tablet) 20 mg PO DAILY [facility] Last Admin: 06/26/23 08:48 Dose: 20 mg Documented By: LEVY Benzonatate (Benzonatate 100 Mg Capsule) 100 mg PO TID PRN PRN Reason: Cough Last Admin: 06/20/23 20:21 Dose: 100 mg Documented By: ODRISM Docusate Sodium (Docusate Sodium 100 Mg Capsule) 100 mg PO DAILY PRN PRN Reason: Constipation Enoxaparin Sodium (Enoxaparin Sodium 40 Mg/0.4 Ml Syringe) 40 mg SUBCUT Q24H [facility] Last Admin: 06/25/23 17:15 Dose: 40 mg Documented By: SAMMIE Fluticasone/Umeclidinium/Vilanterol (Fluticasone/Umeclidinium/Vilanterol 100/62.5/25 Blst.W.Dev) 1 puff INHALE RDAILY [facility] Last Admin: 06/26/23 08:18 Dose: 1 puff Documented By: KAYLEIGH Hydrochlorothiazide (Hydrochlorothiazide 12.5 Mg Tablet) 12.5 mg PO DAILY [facility]; Protocol Last Admin: 06/26/23 08:48 Dose: 12.5 mg Documented By: LEVY Melatonin (Melatonin 3 Mg Tablet) 6 mg PO BEDTIME PRN PRN Reason: Insomnia Montelukast Sodium (Montelukast Sodium 10 Mg Tablet) 10 mg PO BEDTIME [facility] Last Admin: 06/25/23 20:56 Dose: 10 mg Documented By: VIRGINIE Ondansetron HCl (Ondansetron Hcl 4 Mg/2 Ml Vial) 4 mg IVPUSH Q8H PRN PRN Reason: Nausea and Vomiting Quetiapine Fumarate (Quetiapine Fumarate 25 Mg Tablet) 25 mg PO TID [facility] Last Admin: 06/26/23 08:48 Dose: 25 mg Documented By: LEVY Quetiapine Fumarate (Quetiapine Fumarate 25 Mg Tablet) 25 mg PO Q6H PRN PRN Reason: Agitation/aggression Last Admin: 06/17/23 00:10 Dose: 25 mg Documented By: KOMAL Sodium Chloride (0.9 % Sodium Chloride Flush 3 Ml Syringe) 3 ml IVFLUSH QSHIFT [facility] Last Admin: 06/26/23 08:49 Dose: Not Given Documented By: LEVY Non-Admin Reason: No Access Vitamin D (Cholecalciferol (Vitamin D3) 25 Mcg Tablet) 25 mcg PO DAILY [facility] Last Admin: 06/26/23 08:49 Dose: 25 mcg Documented By: LEVY Labs 06/27/23 08:34 06/27/23 08:34 Assessment and Plan (1) Major neurocognitive disorder: Status: Acute (2) Mild cognitive disorder: Status: Acute (3) COPD (chronic obstructive pulmonary disease): Status: Acute Plan Pt is an 82-year-old Romanian speaking male with a PMH significant for asthma/COPD overlap syndrome, HTN, HLD, mild cognitive disorder, hx of prostate cancer, and osteoarthritis of bilateral knees who initially presented to the ED on 05/26/2023 for evaluation of fall at home. Since then patient has been placed in overflow on physician observation. Patient will be brought to the medical floor and admitted to the hospital while awaiting long-term placement. essentially no change in care at this time, awairing placement Asthma/COPD overlap syndrome Not in acute exacerbation renew inhalers HTN--controlled Continue hydrochlorothiazide and Amlodipine HLD--Continue statin left knee pain and effusion xray show Nwfmavjm-fd-aqrebz degenerative changes. conservative management, Tyelenol PRN Mood disorder Continue quetiapine Dispo: To half-way care \ Quality Stroke Does the patient have a stroke diagnosis?: No VTE Prior VTE?: No VTE Risk Level:: Medical - moderate - high VTE Device Contraindication: Treatment Not Indicated VTE Drug Contraindication: N/A - Med Ordered
[2023-06-26] MEDS: Acetaminophen 325 MG TABLET 975 MG PO ×2 (11:36→20:25)
[2023-06-26 14:59] VITALS: BP 146/62; PULSE 80; RESP 18; TEMP 36.4; O2SAT 94
[2023-06-26] MEDS: Enoxaparin Sodium 40 MG/0.4 ML SYRINGE SUBCUT (17:44)
[2023-06-26 18:31] VITALS: PULSE 86; RESP 20; O2SAT 96
[2023-06-26 20:00] VITALS: BP 145/68; PULSE 89; RESP 18; TEMP 36.9; O2SAT 95
[2023-06-26] MEDS: Montelukast Sodium 10 MG TABLET PO (20:25)
[2023-06-26] MEDS: Melatonin 3 MG TABLET 6 MG PO (20:25)
[2023-06-27] MEDS: Albuterol/Iprat 2.5/0.5MG 3 ML AMPUL.NEB INHALE ×2 (01:19→08:01)
[2023-06-27 03:17] VITALS: BP 114/57; PULSE 78; RESP 18; TEMP 36.2; O2SAT 94
[2023-06-27 07:41] VITALS: BP 139/63; PULSE 74; RESP 16; TEMP 36.3; O2SAT 94
[2023-06-27] MEDS: Fluticasone/Umeclidinium/Vilanterol 100/62.5/25 BLST.W.DEV 1 PUFF INHALE (07:58)
[2023-06-27 08:01] VITALS: PULSE 73; RESP 16; O2SAT 96
[2023-06-27] MEDS: QUEtiapine Fumarate 25 MG TABLET PO (08:53)
[2023-06-27] MEDS: hydroCHLOROthiazide 12.5 MG TABLET PO (08:53)
[2023-06-27] MEDS: Cholecalciferol (Vitamin D3) 25 MCG TABLET PO (08:53)
[2023-06-27] MEDS: amLODIPine Besylate 5 MG TABLET PO (08:53)
[2023-06-27] MEDS: Atorvastatin Calcium 20 MG TABLET PO (08:53)
[2023-06-27] MEDS: Aspirin Enteric Coated 81 MG TABLET.DR PO (08:53)
[2023-06-27 09:26] LABS: Hemoglobin 14.6 g/dl (14.0-18.0); Mean Corpuscular HGB Conc 34.8 g/dl (31.0-36.0); Mean Corpuscular Hemoglobin 31.2 pg (27.0-33.0); Mean Corpuscular Volume 89.7 fL (80.0-98.0); Mean Platelet Volume 11.1 fL (9.4-12.4); Platelet Count 265 X10*3/uL (160-400); Red Blood Count 4.68 X10*6/uL (4.60-5.80)
[2023-06-27 09:40] LABS: Anion Gap 10 (12-20); Blood Urea Nitrogen 15 mg/dL (9-16); Carbon Dioxide 29 mmol/L (22-29); Chloride 103 mmol/L (96-108); Creatinine Clr Calc Pharmacy 70.5; Estimated Glomerular Filt Rate > 60; Glucose Random 127 mg/dL (60-115); Potassium 3.7 mmol/L (3.3-5.1); Sodium 138 mmol/L (135-145)
--- NOTE | 2023-06-27 13:16 | MHC.CM.PN ---
IMM 06/27/23 Patient is discharged today to [facility] for LTC. He will transport via BLS 1pm pick scheduled. Patients HCP Nay has been notified of the transfer. She accepts the bed offer and agrees with the discharge plan.
== END 2023-06-27 13:57 | disposition skilled nursing facility (03) | DRG 159 ==
LOC: HO.ED 06-17 19:21 → HO.EDOVER 06-17 21:15 → HO.S3 06-20 07:58
PROVIDERS: Nurse Practitioner Family; Physician Assistant Medical; Social Worker; Admitting Provider Student in an Organized Health Care Education/Training Program; Emergency Provider Emergency Medicine; PCP Internal Medicine; Visit Provider Internal Medicine
DX: S02.40CA Maxillary fracture, right side, initial encounter for closed fracture (principal); S01.111A Laceration without foreign body of right eyelid and periocular area, initial encounter; Z75.1 Person awaiting admission to adequate facility elsewhere; E86.0 Dehydration; F03.90 Unspecified dementia, unspecified severity, without behavioral disturbance, psychotic disturbance, mood disturbance, and anxiety; W06.XXXA Fall from bed, initial encounter; I10 Essential (primary) hypertension; S02.2XXA Fracture of nasal bones, initial encounter for closed fracture; M17.0 Bilateral primary osteoarthritis of knee; F39 Unspecified mood [affective] disorder; E78.5 Hyperlipidemia, unspecified; J44.9 Chronic obstructive pulmonary disease, unspecified; Z20.822 Contact with and (suspected) exposure to COVID-19; Z85.46 Personal history of malignant neoplasm of prostate; Z79.82 Long term (current) use of aspirin; Z79.899 Other long term (current) drug therapy
CPT/HCPCS: 36415; 70450; 70486; 71045; 71046; 71101; 72125; 73560; 80048; 80053; 80076; 81001; 82550; 85025; 85027; 87502; 87635; 92526; 93005; 94640; 94664; 97162; 97166; 97530; 99285; J1650; J2930

== ENCOUNTER → 2023-05-26 07:44 | Outpatient (BNV) | payer OTHER, SELFPAY | PROVIDERS: Emergency Provider Emergency Medicine; PCP Internal Medicine; Visit Provider Internal Medicine Cardiovascular Disease | DX: R94.31 Abnormal electrocardiogram [ECG] [EKG] (principal) | CPT/HCPCS: 93010 ==

== ENCOUNTER → 2023-05-26 07:51 | Outpatient (BNV) | payer OTHER, SELFPAY | PROVIDERS: Emergency Provider Emergency Medicine; PCP Internal Medicine; Visit Provider Student in an Organized Health Care Education/Training Program | DX: F03.90 Unspecified dementia, unspecified severity, without behavioral disturbance, psychotic disturbance, mood disturbance, and anxiety (principal); F09 Unspecified mental disorder due to known physiological condition | CPT/HCPCS: 99223; 99231; 99232; 99238 ==

== ENCOUNTER → 2023-05-26 07:51 | Outpatient (BNV) | payer OTHER, SELFPAY | PROVIDERS: Emergency Provider Emergency Medicine; PCP Internal Medicine; Visit Provider Social Worker | DX: F03.90 Unspecified dementia, unspecified severity, without behavioral disturbance, psychotic disturbance, mood disturbance, and anxiety (principal) | CPT/HCPCS: 99285 ==

== ENCOUNTER 2023-07-29 15:17 | Emergency (ER) | payer OTHER, SELFPAY ==
--- NOTE | ~2023-07-29 | XR_ITS ---
EXAMINATION: XR SHOULDER, LEFT CLINICAL INFORMATION: Left arm pain COMPARISON: X-ray 08/31/2018 TECHNIQUE: Three views of the left shoulder. FINDINGS: No acute fracture or dislocation. Mild acromioclavicular arthritis. Glenohumeral joint space is maintained, with mild hypertrophic changes. No abnormal soft tissue calcification. XR/XR shoulder LT min 2V IMPRESSION: No radiographic evidence of acute osseous abnormality. Degenerative changes as above.
--- NOTE | ~2023-07-29 | XR_ITS ---
EXAMINATION: XR ELBOW, LEFT CLINICAL INFORMATION: Elbow pain COMPARISON: None available. TECHNIQUE: Four views of the left elbow. FINDINGS: Mild-moderate radiocapitellar joint space narrowing. Marginal osteophytes. No acute fracture or dislocation is seen. Possible joint effusion, evaluation limited on the suboptimal lateral projection.. Chronic appearing enthesopathy/heterotopic ossification at the medial humeral epicondyle. There are multiple metallic radiopaque densities, compatible with metallic foreign bodies in the soft tissues. XR/XR elbow LT min 3V IMPRESSION: 1. Multiple metallic densities/foreign bodies in the soft tissues of the elbow. 2. Mild-moderate elbow joint arthritis. 3. Possible joint effusion. 4. No radiographic evidence of acute fracture or malalignment.
--- NOTE | ~2023-07-29 | XR_ITS ---
EXAMINATION: X-ray left knee X-ray left tibia and fibula CLINICAL INFORMATION: Left knee pain. COMPARISON: X-ray left knee 06/21/2023 TECHNIQUE: Left knee 5 views . Tibia and fibula 2 views. FINDINGS: Left knee: Moderate-severe medial compartment arthritis, joint space loss, marginal osteophytes. Marginal osteophytes in the lateral compartment. Advanced patellofemoral arthritis.. No visible acute fracture or dislocation. There is patellar insertional enthesopathy. Small suprapatellar joint fluid. Redemonstrated multiple ossifications in the soft tissues along the posterior aspect of the knee. Tibia and fibula: No evidence of acute fracture or malalignment of the tibia-fibula. Arthritis as above. No abnormal soft tissue calcification. XR/XR knee LT 3V IMPRESSION: Tricompartment osteoarthritis left knee. Moderate-severe medial compartment arthritis. Possible loose bodies. No acute osseous abnormality seen. No acute fracture or malalignment of the tibia or fibula.
--- NOTE | ~2023-07-29 | XR_ITS ---
EXAMINATION: XR FEMUR, LEFT CLINICAL INFORMATION: Left leg pain COMPARISON: X-ray left hip 04/12/2022 TECHNIQUE: AP and lateral views of the left femur were obtained. FINDINGS: The left femur is imaged to the level of the mid femoral diaphysis. The distal femur is not included in the [id number]. Left hip joint space is maintained. There is acetabular roof sclerosis. No acute fracture or dislocation is seen. No abnormal soft tissue calcification. XR/XR femur LT 2V IMPRESSION: No radiographic evidence of acute osseous abnormality.
--- NOTE | ~2023-07-29 | XR_ITS ---
EXAMINATION: X-ray left knee X-ray left tibia and fibula CLINICAL INFORMATION: Left knee pain. COMPARISON: X-ray left knee 06/21/2023 TECHNIQUE: Left knee 5 views . Tibia and fibula 2 views. FINDINGS: Left knee: Moderate-severe medial compartment arthritis, joint space loss, marginal osteophytes. Marginal osteophytes in the lateral compartment. Advanced patellofemoral arthritis.. No visible acute fracture or dislocation. There is patellar insertional enthesopathy. Small suprapatellar joint fluid. Redemonstrated multiple ossifications in the soft tissues along the posterior aspect of the knee. Tibia and fibula: No evidence of acute fracture or malalignment of the tibia-fibula. Arthritis as above. No abnormal soft tissue calcification. XR/XR tibia fibula LT 2V IMPRESSION: Tricompartment osteoarthritis left knee. Moderate-severe medial compartment arthritis. Possible loose bodies. No acute osseous abnormality seen. No acute fracture or malalignment of the tibia or fibula.
[2023-07-29 15:36] VITALS: BP 146/68; PULSE 82; RESP 16; TEMP 36.6; O2SAT 98; BMI 28.6
--- NOTE | 2023-07-29 15:44 | ED.GENADULT ---
HPI - General Adult General Chief complaint: General Medical Stated complaint: LUE & LLOE PAIN X4 DAYS Time Seen by Provider: 07/29/23 15:43 Source: family and EMS Mode of arrival: EMS Limitations: altered mental status and other History of Present Illness HPI narrative: 83-year-old male from a detention with advanced dementia presents emergency department complaining of left upper and lower extremity pain patient is unable to give us any history he states he fell after tripping and landing on his knee he denies hitting his head denies loss of consciousness chest pain cough or fever Related Data Home Medications ?Medication ?Instructions ?Recorded ?Confirmed acetaminophen 650 mg 2 tab PO Q8H PRN Pain 10/18/21 05/26/23 tablet,extended release albuterol sulfate 2.5 mg/3 mL 1 amp inhalation Q6H PRN wheezing 10/18/21 05/26/23 (0.083 %) solution for nebulization albuterol sulfate 90 mcg/actuation 2 puff PO Q4-6H PRN Allergic 10/18/21 05/26/23 aerosol inhaler (Ventolin HFA) Reaction amlodipine 5 mg tablet 1 tab PO DAILY 10/18/21 05/26/23 aspirin 81 mg tablet,delayed 1 tab PO DAILY 10/18/21 05/26/23 release atorvastatin 20 mg tablet 1 tab PO DAILY 10/18/21 05/26/23 cholecalciferol (vitamin D3) 25 1 cap PO DAILY 10/18/21 05/26/23 mcg (1,000 unit) capsule (Vitamin D3) hydrochlorothiazide 12.5 mg tablet 1 tab PO DAILY 10/18/21 05/26/23 ipratropium 20 mcg-albuterol 100 1 puff PO QID PRN Shortness Of 10/18/21 05/26/23 mcg/actuation mist for inhalation Breath Or Wheezing (Combivent Respimat) montelukast 10 mg tablet 1 tab PO QPM 10/18/21 05/26/23 fluticasone fur. 100 mcg-umeclid 1 ea inhalation QAM 05/26/23 05/26/23 62.5 mcg-vilant 25 mcg inhalat.powder (Trelegy Ellipta) Previous Rx's ?Medication ?Instructions ?Recorded quetiapine 25 mg tablet (Seroquel) 25 mg PO BEDTIME #30 tabs 03/22/22 quetiapine 25 mg tablet 25 mg PO Q6H PRN 06/24/23 Agitation/aggression #20 tabs Allergies Allergy/AdvReac Type Severity Reaction Status Date / Time No Known Allergies Allergy Unknown UNKNOWN Verified 07/29/23 15:38 [NO KNOWN ALLERGIES] Review of Systems Review of Systems: Yes Unobtainable due to mental status and Other PMFSH Past Medical History Medical History Anasarca COVID-19 COPD (chronic obstructive pulmonary disease) Allergic rhinitis Bilateral primary osteoarthritis of knee Hyperlipidemia Hypertension High cholesterol Prostate CA COPD (chronic obstructive pulmonary disease) Asthma Varicose veins of right lower extremity with inflammation Surgical History No pertinent past surgical history Family History Family History Other No family history of coronary artery disease Social History Social History Household Members: None Housing: Other Housing Other:: placement. Do you presently have visiting nurse or other home services: No Unable to assess alcohol history related to: Unknown Alcohol intake: current Alcohol intake frequency: a few times a week Patient Tobacco Use Status: Never used Tobacco Second Hand Smoke Exposure: No Advance Directives: Yes Advance Directives on File: Yes Advance Directives Date on File: 03/09/22 service: No Current occupational status: retired and disabled Current occupation: right handed Physical Exam ED Vital Signs: Vital Signs - 24 hr 07/29/23 15:36 07/29/23 18:21 Temperature 97.8 F 98.2 F Pulse Rate 82 70 Respiratory Rate 16 16 Blood Pressure 146/68 H 145/75 H Pulse Oximetry 98 98 Oxygen Delivery Method Room Air BMI result Body Mass Index 28.6 General: Well-appearing well-nourished in no signs of distress HEENT: Normocephalic atraumatic Neck: No signs of JVD, no masses no tenderness or lymphadenopathy Cardiovascular: Regular rate and rhythm Respiratory: Clear to auscultation bilaterally Abdomen: Soft nontender no masses Extremities: Normal pedal pulses no signs of edema focused exam done bilateral arms and legs he does not have any tenderness anywhere on either arm has full range of motion normal strength he is able to make the okay sign separate his fingers and extend his wrist bilaterally. He has no pain to either foot or ankle he states the pain is gets to his knee at the proximal tibia as well as some pain with palpation to the knee and femur no pain at the pelvis able to lift up his leg able to bend at the ankle Skin: Dry warm no rashes Back: No tenderness full ROM Course Course Course Narrative: XR's are all negative of the upper and lower extremity. Patient looks well I will send home. Medications Administered Discontinued Medications Generic Name Dose Route Start Last Admin Trade Name Freq PRN Reason Stop Dose Admin Acetaminophen 650 mg 07/29/23 16:03 07/29/23 17:02 Acetaminophen 325 Mg Tablet PO 07/29/23 16:04 650 mg ONCE ONE Administration Medical Decision Making Medical Decision Making [facility] Narrative: I will send patient for extra-strength the patient Tylenol and reassess Differential Diagnosis Differential Diagnoses: The differential diagnosis associated with the presentation includes Left arm and left leg pain concern for new contusion versus fracture versus femur fracture shortly injury Independent Interpretation I performed an independent interpretation of an: Plain X-Ray Radiology Impression Discussion of test interpretation with radiology: I have reviewed the radiologist's reading. Discharge Plan Discharge Clinical Impression: Fall, Arm pain, left, Acute pain of left knee Patient Disposition: Home, Self-Care Instructions: Arthralgia (ED), Arm Pain (ED), Fall Prevention (ED) Additional Instructions: You were seen in the emergency room today for left knee and left arm pain. He had x-rays done which were all negative. Please call follow up with her doctor if you have any other concerns please do not hesitate to return to emergency department. Prescriptions: No Action atorvastatin 20 mg tablet 1 tab PO DAILY albuterol sulfate 2.5 mg /3 mL (0.083 %) solution for nebulization 1 amp inhalation Q6H PRN (Reason: wheezing) amlodipine 5 mg tablet 1 tab PO DAILY aspirin 81 mg tablet,delayed release (DR/EC) 1 tab PO DAILY acetaminophen 650 mg tablet extended release 2 tab PO Q8H PRN (Reason: Pain) montelukast 10 mg tablet 1 tab PO QPM albuterol sulfate [Ventolin HFA] 90 mcg/actuation HFA aerosol inhaler 2 puff PO Q4-6H PRN (Reason: Allergic Reaction) cholecalciferol (vitamin D3) [Vitamin D3] 25 mcg (1,000 unit) capsule 1 cap PO DAILY hydrochlorothiazide 12.5 mg tablet 1 tab PO DAILY Combivent Respimat 20-100 mcg/actuation mist 1 puff PO QID PRN (Reason: Shortness Of Breath Or Wheezing) quetiapine [Seroquel] 25 mg tablet 25 mg PO BEDTIME Qty: 30 0RF Trelegy Ellipta 100-62.5-25 mcg blister with device 1 ea inhalation QAM quetiapine 25 mg Tablet 25 mg PO Q6H PRN (Reason: Agitation/aggression) Qty: 20 0RF Print Language: [place]
[2023-07-29] MEDS: Acetaminophen 325 MG TABLET 650 MG PO (17:02)
[2023-07-29 18:21] VITALS: BP 145/75; PULSE 70; RESP 16; TEMP 36.8; O2SAT 98
[2023-07-29 19:46] VITALS: BP 145/75; PULSE 70; RESP 16; TEMP 36.8; O2SAT 98
== END 2023-07-29 19:48 | disposition home or self-care (01) ==
PROVIDERS: Emergency Provider Student in an Organized Health Care Education/Training Program; PCP Family Medicine
DX: G89.11 Acute pain due to trauma (principal); M79.602 Pain in left arm; M25.562 Pain in left knee; F03.90 Unspecified dementia, unspecified severity, without behavioral disturbance, psychotic disturbance, mood disturbance, and anxiety; J44.9 Chronic obstructive pulmonary disease, unspecified; Z91.81 History of falling
CPT/HCPCS: 73030; 73080; 73552; 73562; 73590; 99283; 99284

== ENCOUNTER 2023-08-16 20:11 | Emergency (ER) | payer OTHER, SELFPAY ==
--- NOTE | ~2023-08-16 | CT_ITS ---
EXAMINATION: CT HEAD WITHOUT CONTRAST CT CERVICAL SPINE WITHOUT CONTRAST CLINICAL INFORMATION: Fall. COMPARISON: CT head and cervical spine from 05/26/2023. TECHNIQUE: Contiguous axial imaging was performed from the skull base to vertex without intravenous administration of contrast. Contiguous axial imaging was performed from the upper chest through the skull base without intravenous administration of contrast. Coronal and sagittal reformats were obtained at the acquisition workstation. This CT examination was performed using dose optimization techniques as appropriate, variously including the following: *Automated exposure control. *Adjustment of mA and/or kV according to patient size (this includes techniques or standardized protocols for targeted exams where dose is matched to indication/reason for exam; i.e. extremities or head). *Use of iterative reconstruction technique. DLP: No mGy-cm FINDINGS: Head: There is no evidence of acute intracranial hemorrhage or edematous territorial infarction. Noonan-white matter differentiation is preserved. Scattered and partially confluent hypoattenuation in the periventricular and deep white matter are consistent with moderate microangiopathy. Proportional prominence of the ventricles and sulcal spaces without evidence of obstructive hydrocephalus. No abnormal mass effect or midline shift. No extra-axial fluid collections. Moderate subgaleal hematoma along the left aspect of the frontal bone/left supraorbital ridge, measuring up to 0.7 cm in depth. No associated acute osseous abnormalities. There is a 1.5 cm polyp in the right nasopharynx extending from the ethmoids. Moderate mucosal thickening of the right maxillary sinus with layering fluid. Mild mucosal thickening of the remaining paranasal sinuses. The mastoid air cells and middle ear cavities are clear. Bilateral lens extractions. Cervical Spine: The atlantooccipital and atlantoaxial articulations remain well aligned. Moderate degenerative arthropathy of the atlantodental articulation. Moderate right convex curvature of the cervical spine. Straightening of the normal cervical lordosis. Mild degenerative retrolisthesis of C2 on C3. Moderate degenerative stepwise retrolisthesis of C5-C7. Otherwise, there is anatomic alignment of the vertebral bodies and posterior elements. No evidence of acute fracture or subluxation. The vertebral body heights are maintained. Advanced degenerative disc disease from C3-C7. Moderate degenerative disc disease at C2-C3. Facet and uncovertebral joint arthropathy leads to osseous encroachment on the neural foramina from C2-C7. There is no prevertebral soft tissue swelling. The thyroid gland and remaining cervical soft tissues are within normal limits. The lung apices demonstrate no abnormalities. CT/CT cervical spine wo IV con IMPRESSION: 1. No evidence of acute intracranial hemorrhage or edematous territorial infarction. Moderate underlying microangiopathy and generalized cerebral volume loss. 2. No evidence of acute fracture or traumatic subluxation of the cervical spine. Moderate to advanced multilevel degenerative spondyloarthropathy of the cervical spine. 3. Left frontal scalp hematoma. No associated osseous abnormalities. 4. There is a 1.5 cm polyp in the right nasopharynx extending from the ethmoids.
[2023-08-16 20:19] VITALS: BP 140/51; BP 180/90; PULSE 81; PULSE 90; RESP 18; TEMP 36.5; O2SAT 96; BMI 27.4
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
[2023-08-16 22:05] VITALS: BP 141/70; PULSE 80; RESP 16; TEMP 36.5; O2SAT 97
--- NOTE | 2023-08-16 23:22 | PC.NURSE ---
at bedside placing sutures on pt.
[2023-08-16] MEDS: Bacitracin Oint 0.9 GM PACKET 1 APPL TOPICAL (23:34)
--- NOTE | 2023-08-16 23:42 | PC.NURSE ---
report given to sofi GANN at [facility].
[2023-08-17 00:52] VITALS: BP 126/68; PULSE 73; RESP 13; TEMP 36.7; O2SAT 96
== END 2023-08-16 23:56 | disposition home or self-care (01) ==
PROVIDERS: Emergency Provider Student in an Organized Health Care Education/Training Program; PCP Internal Medicine
DX: S01.112A Laceration without foreign body of left eyelid and periocular area, initial encounter (principal); S00.81XA Abrasion of other part of head, initial encounter; S80.02XA Contusion of left knee, initial encounter; S80.01XA Contusion of right knee, initial encounter; W18.30XA Fall on same level, unspecified, initial encounter; I10 Essential (primary) hypertension; E78.5 Hyperlipidemia, unspecified; Y93.89 Activity, other specified; Y92.128 Other place in nursing home as the place of occurrence of the external cause; Y99.9 Unspecified external cause status; Z79.82 Long term (current) use of aspirin; Z79.02 Long term (current) use of antithrombotics/antiplatelets; Z79.899 Other long term (current) drug therapy
CPT/HCPCS: 12013; 70450; 72125; 99284

== ENCOUNTER 2023-11-10 18:54 | Emergency (ER) | payer OTHER, SELFPAY ==
[2023-11-10 19:15] VITALS: BP 177/77; PULSE 90; RESP 17; TEMP 36.7; O2SAT 94
[2023-11-10 19:33] VITALS: BP 150/86; PULSE 94; O2SAT 97
[2023-11-10 19:38] VITALS: BP 177/77; PULSE 90; RESP 17; TEMP 36.7; O2SAT 94; BMI 31.6
--- NOTE | 2023-11-10 20:35 | PC.NURSE ---
case discussed with Dr Anguiano who states to order the psych order set. orders placed.
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
[2023-11-10 21:34] LABS: MANUAL DIFF FLAG NO
[2023-11-10 21:36] LABS: Basophils Absolute Auto 0.1 X10*3/uL (0.0-0.2); Basophils Percent Auto 0.7 % (0-2); Eosinophils Absolute Auto 0.4 X10*3/uL (0.0-0.4); Eosinophils Percent Auto 3.7 % (0-4); Hematocrit 42.2 % (42.0-52.0); Hemoglobin 15.6 g/dl (14.0-18.0); Imm Gran Abs Auto 0.03 X10*3/uL (0.00-0.03); Imm Gran Pct Auto 0.3 % (0.0-0.4); Lymphocytes Absolute Auto 2.4 X10*3/uL (1.2-4.9); Lymphocytes Percent Auto 20.4 % (20-40); Mean Corpuscular Hemoglobin 31.4 pg (27.0-33.0); Mean Corpuscular Volume 84.9 fL (80.0-98.0); Mean Platelet Volume 10.5 fL (9.4-12.4); Monocytes Percent Auto 8.3 % (2-11); Neutrophils Percent Auto 66.6 % (45-73); Platelet Count 258 X10*3/uL (160-400); Red Blood Count 4.97 X10*6/uL (4.60-5.80); Red Cell Distribution Width 13.2 % (11.0-16.0)
[2023-11-10 21:59] LABS: Alanine Aminotransferase 15 U/L (0-40); Albumin Level 3.8 g/dL (3.5-5.0); Alkaline Phosphatase 135 U/L (39-117); Anion Gap 17 (12-20); Aspartate Amino Transferase 21 U/L (5-37); Bilirubin Total 0.6 mg/dL (0.0-1.0); Blood Urea Nitrogen 16 mg/dL (9-16); Calcium 9.6 mg/dL (8.4-10.2); Carbon Dioxide 24 mmol/L (22-29); Chloride 103 mmol/L (96-108); Ethanol < 10 mg/dL; Glucose Random 124 mg/dL (60-115); Potassium 3.8 mmol/L (3.3-5.1); Sodium 140 mmol/L (135-145); Total Protein 7.1 g/dL (6.5-8.0)
[2023-11-10 22:17] LABS: Creatinine Clr Calc Pharmacy 62.7; Estimated Glomerular Filt Rate > 60
[2023-11-11] VITALS (9 sets, daily range): BP systolic 123–166; BP diastolic 57–98; PULSE 68–85; RESP 16–18; TEMP 36.1–36.6; O2SAT 94–98
[2023-11-11 00:31] LABS: Amphetamine Screen Urine Not Detected (Not Detect); Barbiturates, Urine Not Detected (Not Detect); Benzodiazepines Screen Urine Not Detected (Not Detect); Buprenorphine Scr Not Detected (Not Detect); Cannabinoid Screen Urine Not Detected (Not Detect); Cocaine Screen Urine Not Detected (Not Detect); Fentanyl, urine Not Detected (Not Detect); Methadone Screen, Urine Not Detected (Not Detect); Opiate Screen Urine Not Detected (Not Detect); Oxycodone Screen Urine Not Detected (Not Detect); Phencyclidine Screen Urine Not Detected (Not Detect)
--- NOTE | 2023-11-11 10:31 | PHA.MEDREC ---
Addendum entered by Maryam Fox tung 11/11/23 10:43: reviewed Original Note: Pharmacy Consult ? Medication Reconciliation Pharmacy has completed the medication reconciliation. Obtained patient med list from facility and compared to fill history to complete reconciliation.
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
[2023-11-11] MEDS: Cholecalciferol (Vitamin D3) 25 MCG TABLET PO (13:06)
[2023-11-11] MEDS: amLODIPine Besylate 5 MG TABLET PO (13:07)
[2023-11-11] MEDS: hydroCHLOROthiazide 12.5 MG TABLET PO (13:07)
[2023-11-11] MEDS: Montelukast Sodium 10 MG TABLET PO ×2 (13:07→22:00)
[2023-11-11] MEDS: Aspirin Enteric Coated 81 MG TABLET.DR PO (13:07)
[2023-11-11] MEDS: Atorvastatin Calcium 20 MG TABLET PO (13:07)
--- NOTE | 2023-11-11 15:28 | MHC.EDTECH ---
This pct assumed care of patient at 1500 ,,patient was incontinent of urine ,care given and bed pads change ,patient belonging list done ,Urine sample collected from straight cath and sent to lab ,This Pct asked RN to order lunch for Patient ,Kitchen was called by this pct for Patient late lunch ,Patient ,Comfortable ,at this time watching television .
[2023-11-11 15:39] LABS: Appearance Urine Clear; Color Urine Yellow; Glucose Urine UA Negative (Negative); Leukocyte Esterase Urine Trace (Negative); Nitrite Urine Negative (Negative); PH 6.5 (5.0-9.0); UMIC TRIGGER UACC YES; Urine Blood Negative (Negative); Urine Ketones Negative (Negative); Urine Protein Negative (Neg-Trace)
[2023-11-11 15:47] LABS: Bacteria Urine None Seen (None Seen); Hyaline Casts Urine 0-2 /LPF (0-2); RBC Urine 0-2 /HPF (0-2); Squamous Epithelial Cell Urine 0-2 /HPF (0-2); WBC Urine 0-5 /HPF (0-5)
--- NOTE | 2023-11-11 16:24 | MHC.EDTECH ---
Patient was set up with late lunch ate 100 % of meal and drank 360 ml fluids .
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
--- NOTE | 2023-11-11 18:45 | MHC.EDTECH ---
Patient was set up with dinner ate 100 % of ham sandwich and chocolate pudding ,drank 240 ml guillermina venecia .
--- NOTE | 2023-11-11 22:09 | PC.NURSE ---
Pt touching himself inappropriately, removing blankets and covers. Pt recovered. Plan of care ongoing.
--- NOTE | 2023-11-11 22:15 | MHC.EDTECH ---
Patient touching him self inapprontaly ,rn aware ,2200 rounding and vitals done .Patient refused h.s snack .
[2023-11-12 06:26] VITALS: BP 129/57; PULSE 73; RESP 16; TEMP 37.1; O2SAT 97
--- NOTE | 2023-11-12 06:27 | MHC.EDTECH ---
0600 rounding and vitals taken ,Patient was incontinent of urine ,bed bath given ,and bedding change ,Call oropeza within Pt reach .
[2023-11-12 07:16] VITALS: BP 145/52; PULSE 67; RESP 16; TEMP 36.6; O2SAT 99
--- NOTE | 2023-11-12 07:51 | PC.NURSE ---
this RN resumed care of pt at 0645. vss and up to date. nsr on on the sea foam kiss maker. pt alert and oriented to self only. pt unable to answer questions/follow commands appropriately. pt found to be sitting on edge of the bed - pt is a high fall risk. pt easily redirected back into bed. pt is a 1:1 assist while ambulating to the restroom as pt has an extremely unsteady gait. pt verbalizes being unable to keep balance/drifting to the right while ambulating. when medicating pt - pt verbalizes not being able to see straight/seeing double. provider notified/aware. effectiveness pending. head CT ordered. pt now resting in no apparent distress. no sob/wob noted. respirations even/unlabored. plan of care ongoing.
--- NOTE | 2023-11-12 08:20 | MHC.EDTECH ---
Patient given breakfast tray
[2023-11-12] MEDS: amLODIPine Besylate 5 MG TABLET PO (08:54)
[2023-11-12] MEDS: Aspirin Enteric Coated 81 MG TABLET.DR PO (08:54)
[2023-11-12] MEDS: hydroCHLOROthiazide 12.5 MG TABLET PO (08:54)
[2023-11-12] MEDS: Fluticasone/Umeclidinium/Vilanterol 100/62.5/25 BLST.W.DEV 1 PUFF INHALE (08:54)
[2023-11-12] MEDS: Cholecalciferol (Vitamin D3) 25 MCG TABLET PO (08:55)
[2023-11-12] MEDS: Atorvastatin Calcium 20 MG TABLET PO (08:55)
--- NOTE | 2023-11-12 08:59 | PC.NURSE ---
this RN resumed care of pt at 0645. pt alert and oriented to self only at this time which is pt's baseline. hx of dementia. vss and up to date. pt has no complaints. denies pain. full head to toe bed bath performed by tech. pt transitioned to hospital bed to promote comfort. pt medicated per provider order. inhaler remains in ED respiratory cart so it can be utilized when needed. pt resting in bed in no apparent distress. no sob/wob noted. respirations even/unlabored. pt cleared by care team/pending CM consult at this time. bed alarm turned on for safety precautions. plan of care ongoing. call oropeza placed within reach.
--- NOTE | 2023-11-12 11:03 | MHC.EDTECH ---
Patient inc therefore patient given complete bed bath and new zheng and switched over to inpatient bed
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
--- NOTE | 2023-11-12 13:19 | PC.NURSE ---
pt verbalizing having difficulty chewing his lunch. diabetic diet discontinued. new diabetic diet w/ special indicator for ground mechanical placed at this time.
[2023-11-12 14:56] VITALS: BP 133/71; PULSE 69; RESP 18; TEMP 36.7; O2SAT 95
--- NOTE | 2023-11-12 14:56 | PC.NURSE ---
vss and up to date. pt continues to offer no complaints at this time. resting comfortably in no apparent distress w/ lights dimmed. no sob/wob noted. respirations remain even/unlabored. bed alarm on for safety precautions. plan of care ongoing. call oropeza placed within reach.
--- NOTE | 2023-11-12 17:45 | PC.NURSE ---
pt incontinent of urine. pericare performed. fresh linen/pads applied. call oropeza placed within reach.
[2023-11-12 22:00] VITALS: BP 137/67; PULSE 77; RESP 14; TEMP 36.6; O2SAT 96
[2023-11-13] VITALS (7 sets, daily range): BP systolic 117–155; BP diastolic 52–91; PULSE 61–80; RESP 12–18; TEMP 36.4–36.7; O2SAT 95–98
[2023-11-13] MEDS: Fluticasone/Umeclidinium/Vilanterol 100/62.5/25 BLST.W.DEV 1 PUFF INHALE (08:08)
[2023-11-13] MEDS: Aspirin Enteric Coated 81 MG TABLET.DR PO (08:09)
[2023-11-13] MEDS: Cholecalciferol (Vitamin D3) 25 MCG TABLET PO (08:09)
[2023-11-13] MEDS: hydroCHLOROthiazide 12.5 MG TABLET PO (08:09)
[2023-11-13] MEDS: Atorvastatin Calcium 20 MG TABLET PO (08:09)
[2023-11-13] MEDS: amLODIPine Besylate 5 MG TABLET PO (08:10)
--- NOTE | 2023-11-13 09:04 | PC.NURSE ---
Pt alert and answering questions. Breathing even and unlabored. Pt ate his breakfast with no issues, took his morning meds with no issues as well. Denies any pain. VSS.
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
--- NOTE | 2023-11-13 16:12 | PC.NURSE ---
Pt had one episode of incontinence of urine and very small amount of stool, utilized the photolithographic stripper otherwise. Pt cleaned, full bath, clothing change and bed change done by RN and tech.
--- NOTE | 2023-11-13 17:35 | PC.NURSE ---
Pt alerted RN that he needed to use bathroom to have bowel movement. Two RNs attempted to pivot pt to commode, pt too weak to assist. Unable to transfer to [facility] safety. Pt cleaned in bed. Pt only passed small amount of soft stool, lots of gas. Pt reports urge to go but cannot effectively pass BM.
--- NOTE | 2023-11-13 17:45 | PC.NURSE ---
Pt medicated per MAR with rectal stool softener, will monitor for effect
[2023-11-13] MEDS: bisacodyL 10 MG SUPP.RECT PR (17:46)
[2023-11-13] MEDS: Montelukast Sodium 10 MG TABLET PO (20:37)
--- NOTE | 2023-11-13 21:59 | PC.NURSE ---
MO stool softener effective, pt had large bowel movement in brief. Pt cleaned.
--- NOTE | 2023-11-13 22:08 | PC.NURSE ---
received pt from main ed, pt in overflow 6, no s/s of any acute distress, resp with ease
--- NOTE | 2023-11-14 00:02 | MHC.EDTECH ---
THIS PCT ASSUMED CARE OF PATIENT AT 2330 ,PATIENT AWAKE WATCHING TELEVISION ,AND TOUCHING HIMSELF ,VITALS TAKEN ,PLAN OF CARE CONTINUE .
[2023-11-14 04:13] VITALS: BP 154/66; PULSE 74; RESP 16; TEMP 36.1; O2SAT 95
--- NOTE | 2023-11-14 04:15 | MHC.EDTECH ---
PATIENT AWAKE ,WAS INCONTINENT OF WATERY STOOL AND URINE ,BED BATH GIVEN AND BEDDING CHANGE ,FRESH ICE WATER AND FRANCISCO PRISCILLA GIVEN ,CALL HANLEY WITHIN PATIENT REACH.
--- NOTE | 2023-11-14 06:38 | MHC.EDTECH ---
Patient was inconient of urine and stool ,care given and bed p[ads change ,clean blankets given ,call oropeza within pt reach .
--- NOTE | 2023-11-14 07:11 | PC.NURSE ---
pt rested quietly during the night. report given to Loli GANN
[2023-11-14 07:32] VITALS: PULSE 70; RESP 16; O2SAT 94
[2023-11-14] MEDS: Fluticasone/Umeclidinium/Vilanterol 100/62.5/25 BLST.W.DEV 1 PUFF INHALE (07:32)
[2023-11-14 08:21] VITALS: BP 145/72
[2023-11-14] MEDS: Aspirin Enteric Coated 81 MG TABLET.DR PO (08:21)
[2023-11-14] MEDS: Atorvastatin Calcium 20 MG TABLET PO (08:21)
[2023-11-14] MEDS: Cholecalciferol (Vitamin D3) 25 MCG TABLET PO (08:21)
[2023-11-14] MEDS: amLODIPine Besylate 5 MG TABLET PO (08:21)
[2023-11-14] MEDS: hydroCHLOROthiazide 12.5 MG TABLET PO (08:43)
--- NOTE | 2023-11-14 09:16 | MHC.CM.ED ---
Addendum entered by Yolanda Kaplan 11/14/23 12:13: No bed offers within 25 miles. Referral broadcasted within 50 miles. Addendum entered by Yolanda Kaplan 11/14/23 11:42: Patient's daughter, Kristen and son, Oli, visiting. Requesting update. Both state they haven't spoke to Rayne Silva about patient because we don't speak to her. Update provided. Spoke with Rayne via telephone at [phone]. Rayne updated about Kristen and Oli visiting. Rayne also aware LTC placement is still trying to be found. Original Note: Patient remains in ER overflow. Unable to return to [facility]. Referral broadcasted within 25 miles to all facilities that are contracted with [facility]. Patient will be difficult to place d/t being a registered sex offender. Continue to monitor for d/c needs.
--- NOTE | 2023-11-14 12:30 | PC.NURSE ---
Report taken from Loli GANN, assumed care of pt at this time. Pt resting in bed, offers no complaints. 100% of lunch consumed. Will continue to monitor.
[2023-11-14 14:35] VITALS: BP 132/65; PULSE 72; RESP 17; TEMP 36.6; O2SAT 96
--- NOTE | 2023-11-14 17:06 | PC.NURSE ---
No change in physical assessment, dinner tray provided, pt sitting up in bed consuming. Offers no complaints, NAD. Will continue to monitor.
--- NOTE | 2023-11-14 17:29 | MHC.EDTECH ---
This senior technical analyst changed the pt out of soiled clothing and gave the pt new linen and gown and a new warm blanket.
--- NOTE | 2023-11-14 19:00 | PC.NURSE ---
Report given to Lian GANN, pt exits my care at this time.
--- NOTE | 2023-11-14 19:15 | PC.NURSE ---
received report from Edilma GANN at 1900, assume care of pt at this time. Will cont plan of care
[2023-11-14] MEDS: Montelukast Sodium 10 MG TABLET PO (20:53)
[2023-11-14 22:00] VITALS: BP 120/68; PULSE 66; RESP 16; TEMP 36.4; O2SAT 96
--- NOTE | 2023-11-14 23:30 | PC.NURSE ---
report given ot oncoming nurse at 2300, all questions answered
[2023-11-15 05:21] VITALS: BP 134/62; PULSE 67; RESP 20; TEMP 36.6; O2SAT 99
[2023-11-15 09:08] VITALS: BP 138/70
[2023-11-15] MEDS: amLODIPine Besylate 5 MG TABLET PO (09:08)
[2023-11-15] MEDS: Cholecalciferol (Vitamin D3) 25 MCG TABLET PO (09:08)
[2023-11-15] MEDS: Aspirin Enteric Coated 81 MG TABLET.DR PO (09:08)
[2023-11-15] MEDS: Atorvastatin Calcium 20 MG TABLET PO (09:08)
[2023-11-15 09:11] VITALS: PULSE 67; RESP 20; O2SAT 95
[2023-11-15] MEDS: Fluticasone/Umeclidinium/Vilanterol 100/62.5/25 BLST.W.DEV 1 PUFF INHALE (09:11)
[2023-11-15 09:23] VITALS: BP 138/70
[2023-11-15] MEDS: hydroCHLOROthiazide 12.5 MG TABLET PO (09:23)
--- NOTE | 2023-11-15 15:31 | MHC.CM.ED ---
Patient remains in ER overflow. No bed offers at this time. Referral broadcasted within 50 miles including to [facility] (all male facility). [facility] does not have a bed available. Alexandra Hwang CM Director aware. Continue to monitor for d/c needs.
--- NOTE | 2023-11-15 15:52 | PC.NURSE ---
assumed care of pt at 0700, pt medicated per JUN, meds taken one at a time whole w water. pt verbalized that he was cold and wanted a heater, warm blankets provided. pt incontinent of urine, cleaned bed bath given and repositioned in bed in clean zheng. denies any needs at this time.
[2023-11-15 16:03] VITALS: BP 135/66; PULSE 73; RESP 20; TEMP 36.6; O2SAT 96
--- NOTE | 2023-11-15 19:45 | PC.NURSE ---
Assumed care of pt. Pt lying on stretcher, no acute distress at this time. Preparing for night med administration and educated pt on plan of care.
[2023-11-15 20:14] VITALS: BP 151/61; PULSE 66; RESP 16; TEMP 36.8; O2SAT 98
[2023-11-15] MEDS: Acetaminophen 325 MG TABLET 650 MG PO (21:21)
[2023-11-15] MEDS: Montelukast Sodium 10 MG TABLET PO (21:24)
[2023-11-16 06:00] VITALS: BP 142/66; PULSE 68; RESP 16; TEMP 36.6; O2SAT 97
--- NOTE | 2023-11-16 06:18 | MHC.EDTECH ---
Assisted patient with ADL's. Patient had a bowel movement. Patient was cleaned and fresh linen was putted on the bed.
[2023-11-16 09:19] VITALS: BP 129/72
[2023-11-16] MEDS: Aspirin Enteric Coated 81 MG TABLET.DR PO (09:19)
[2023-11-16] MEDS: amLODIPine Besylate 5 MG TABLET PO (09:19)
[2023-11-16] MEDS: Atorvastatin Calcium 20 MG TABLET PO (09:19)
[2023-11-16] MEDS: Cholecalciferol (Vitamin D3) 25 MCG TABLET PO (09:19)
[2023-11-16 09:21] VITALS: BP 129/72
[2023-11-16] MEDS: hydroCHLOROthiazide 12.5 MG TABLET PO (09:21)
[2023-11-16] MEDS: Fluticasone/Umeclidinium/Vilanterol 100/62.5/25 BLST.W.DEV 1 PUFF INHALE (09:23)
--- NOTE | 2023-11-16 19:42 | MHC.EDTECH ---
patient incontinent of bladder and bowel. Patient cleaned and dry, new linen and warm blankets given.
[2023-11-16 22:00] VITALS: BP 155/81; PULSE 76; RESP 16; TEMP 36.4; O2SAT 95
[2023-11-16] MEDS: Montelukast Sodium 10 MG TABLET PO (22:13)
[2023-11-17 06:00] VITALS: BP 129/63; PULSE 61; RESP 17; TEMP 36.2; O2SAT 96
--- NOTE | 2023-11-17 08:27 | PC.NURSE ---
this RN resumed care of pt at 0645. alert and oriented to name only. pt found to be incontinent of urine and stool. pt cleaned/changed into fresh hospital attire. bedding changed/new linen applied. pt sitting upright/eating breakfast. pharmacy called d/t missing medication in pyxis - will administer when able. per CM notes - pt still waiting for LTC placement at this time. pt seems to be in no apparent distress. no sob/wob noted. respirations even/unlabored. bed alarm on for safety precautions. call oropeza placed within reach.
[2023-11-17] MEDS: Cholecalciferol (Vitamin D3) 25 MCG TABLET PO (08:45)
[2023-11-17] MEDS: Aspirin Enteric Coated 81 MG TABLET.DR PO (08:45)
[2023-11-17] MEDS: hydroCHLOROthiazide 12.5 MG TABLET PO (08:45)
[2023-11-17] MEDS: Atorvastatin Calcium 20 MG TABLET PO (08:45)
[2023-11-17] MEDS: amLODIPine Besylate 5 MG TABLET PO (08:45)
--- NOTE | 2023-11-17 08:46 | PC.NURSE ---
medication delivered from pharmacy/administered.
--- NOTE | 2023-11-17 10:27 | PC.NURSE ---
pt requesting to transfer from bed to recliner. pt transitioned to recliner at this time. 2:1 assist needed as pt is extremely unsteady on his feet/is not able to ambulate independently what so ever. pt repositioned to comfort. chair alarm in place for safety precautions. plan of care ongoing.
--- NOTE | 2023-11-17 10:45 | PC.NURSE ---
full head to toe bed bath performed by avril.
--- NOTE | 2023-11-17 14:34 | MHC.CM.ED ---
Patient remains in ER overflow. Waiting to hear from [facility] and [facility]. No other facilities following at this time. Referral broadcasted within 100 miles to all facilities that are contracted with [facility]. Continue to monitor for d/c needs.
[2023-11-17 15:14] VITALS: BP 122/66; PULSE 68; RESP 16; TEMP 36.4; O2SAT 98
[2023-11-17 15:45] VITALS: PULSE 64; RESP 16; O2SAT 98
[2023-11-17] MEDS: Fluticasone/Umeclidinium/Vilanterol 100/62.5/25 BLST.W.DEV 1 PUFF INHALE (15:45)
--- NOTE | 2023-11-17 18:25 | MHC.EDTECH ---
Patient given dinner tray
[2023-11-17 19:27] VITALS: BP 140/78; PULSE 73; RESP 16; TEMP 36.2; O2SAT 97
[2023-11-17] MEDS: Montelukast Sodium 10 MG TABLET PO (21:09)
--- NOTE | 2023-11-17 22:06 | MHC.EDTECH ---
Patient bed pad changed and repositioned
[2023-11-17 23:58] VITALS: BP 139/69; PULSE 68; RESP 18; TEMP 36.6; O2SAT 95
[2023-11-18 06:00] VITALS: BP 112/57; PULSE 68; RESP 16; TEMP 37.1; O2SAT 95
[2023-11-18 07:55] VITALS: PULSE 71; RESP 16; O2SAT 93
[2023-11-18] MEDS: Fluticasone/Umeclidinium/Vilanterol 100/62.5/25 BLST.W.DEV 1 PUFF INHALE (07:55)
--- NOTE | 2023-11-18 08:03 | MHC.EDTECH ---
pt given breakfast tray
[2023-11-18] MEDS: Aspirin Enteric Coated 81 MG TABLET.DR PO (09:34)
[2023-11-18] MEDS: Atorvastatin Calcium 20 MG TABLET PO (09:34)
[2023-11-18 09:35] VITALS: BP 133/59
[2023-11-18] MEDS: hydroCHLOROthiazide 12.5 MG TABLET PO (09:35)
[2023-11-18 09:37] VITALS: BP 133/59
[2023-11-18] MEDS: amLODIPine Besylate 5 MG TABLET PO (09:37)
[2023-11-18] MEDS: Cholecalciferol (Vitamin D3) 25 MCG TABLET PO (09:37)
--- NOTE | 2023-11-18 12:06 | MHC.EDTECH ---
pt inc of urine and stool. bed bath given along w new sheets and lunch tray
[2023-11-18 14:00] VITALS: BP 107/71; PULSE 82; TEMP 36.9; O2SAT 97
[2023-11-18 20:00] VITALS: BP 142/59; PULSE 71; RESP 18; TEMP 36.5; O2SAT 97
--- NOTE | 2023-11-18 20:39 | MHC.EDTECH ---
This tech took over care of patient at 1900,hourly rounds and vitals completed,patient was given a warm blanket,repositioned to comfort, call oropeza in reach bed alarm on for safety
[2023-11-18] MEDS: Montelukast Sodium 10 MG TABLET PO (21:44)
--- NOTE | 2023-11-18 22:05 | MHC.EDTECH ---
Hourly rounds completed,patient repositioned to comfort,clean and dry at this time,call oropeza in reach and bed alarm on for safety
[2023-11-19 05:48] VITALS: BP 133/53; PULSE 76; RESP 18; TEMP 36.2; O2SAT 96
--- NOTE | 2023-11-19 06:35 | PC.NURSE ---
Pt Vietnamese speaking only. He was using the urinal but was found to be incontinent of stool and urine during rounds. He received a total bed change, new gown, and bed bath. Pt refused to have the lights turned off. Call oropeza within reach.
[2023-11-19 09:10] VITALS: BP 133/53
[2023-11-19] MEDS: hydroCHLOROthiazide 12.5 MG TABLET PO (09:10)
[2023-11-19] MEDS: amLODIPine Besylate 5 MG TABLET PO (09:10)
[2023-11-19] MEDS: Aspirin Enteric Coated 81 MG TABLET.DR PO (09:10)
[2023-11-19] MEDS: Atorvastatin Calcium 20 MG TABLET PO (09:10)
[2023-11-19] MEDS: Cholecalciferol (Vitamin D3) 25 MCG TABLET PO (09:11)
--- NOTE | 2023-11-19 10:48 | PC.NURSE ---
Patient a x 2, syrian speaking only. Patient yelling out to staff asking to get out of the bed. Patient 2 person assist to the chair. Patient having trouble baring weight on the L leg. Patient complains of pain when standing and ambulating. Patient not resting comfortably in the recliner. Call oropeza within reach and all other needs met. Warm blanket and extra pillows given for comfort.
[2023-11-19] MEDS: Fluticasone/Umeclidinium/Vilanterol 100/62.5/25 BLST.W.DEV 1 PUFF INHALE (11:37)
[2023-11-19 11:39] VITALS: PULSE 76; RESP 20; O2SAT 96
[2023-11-19 17:41] VITALS: BP 138/57; PULSE 68; RESP 18; TEMP 36.7; O2SAT 97
--- NOTE | 2023-11-19 18:30 | PC.NURSE ---
Patient incont. in the bed, cleaned and linens replaced. Patient was able to roll in the bed with minimal assist. Warm blankets given and patient now calm resting in bed. All other needs met at this time, call oropeza within reach.
[2023-11-19 19:31] VITALS: BP 135/65; PULSE 63; RESP 16; TEMP 36.6; O2SAT 97
[2023-11-19] MEDS: Montelukast Sodium 10 MG TABLET PO (19:59)
[2023-11-20] VITALS (7 sets, daily range): BP systolic 116–149; BP diastolic 55–70; PULSE 65–72; RESP 14–17; TEMP 36.5–37.1; O2SAT 96–100
[2023-11-20] MEDS: Melatonin 3 MG TABLET 6 MG PO ×2 (00:43→20:44)
--- NOTE | 2023-11-20 07:09 | PC.NURSE ---
report recieved from previous RN, patient resting comfortably on stretcher, per previous RN patient complaining that he cannot sleep yet refusing to let RNs turn off lights or TV. all safety maintained.
[2023-11-20] MEDS: Aspirin Enteric Coated 81 MG TABLET.DR PO (07:31)
[2023-11-20] MEDS: hydroCHLOROthiazide 12.5 MG TABLET PO (07:32)
[2023-11-20] MEDS: Cholecalciferol (Vitamin D3) 25 MCG TABLET PO (07:32)
[2023-11-20] MEDS: amLODIPine Besylate 5 MG TABLET PO (07:34)
[2023-11-20] MEDS: Atorvastatin Calcium 20 MG TABLET PO (07:34)
[2023-11-20] MEDS: Fluticasone/Umeclidinium/Vilanterol 100/62.5/25 BLST.W.DEV 1 PUFF INHALE (08:12)
--- NOTE | 2023-11-20 08:21 | PC.NURSE ---
patient provided with breakfast tray, resting on stretcher at this time, provided with urinal, patient able to use urinal on his own
--- NOTE | 2023-11-20 09:56 | PC.NURSE ---
patient requesting to sit in recliner, 2assist and gait belt used to place patient in reclining chair, patient minimally asissted stafff when helping with transfer, stated he cant use his legs. patient transferred successfully, fall alarm placed on chair. all safety maintained
--- NOTE | 2023-11-20 12:03 | PC.NURSE ---
patient remains sitting up in recliner, provided with meal tray, patient requesting urinal, clean urinal placed at bedside for patient to use. all safety maintained
--- NOTE | 2023-11-20 12:41 | PC.NURSE ---
patient ate most of his lunch, requesting to go back into bed at this time, patient assisted back into bed by this RN and APPLICATIONS DEVELOPER using gait belt, placed back in bed without incident, patient requesting warm blankets. provided at this time, no complaints at this time
--- NOTE | 2023-11-20 15:11 | PC.NURSE ---
sudhakar noted to be grossly incontinent of urine, when asking patient why he did not use urinal patient stared at this RN and did not respond. patient able to move well side to side in bed without assistance, incontinence care provided, linens changed, bed alarm reset, all safety maintained at this time
--- NOTE | 2023-11-20 16:39 | PC.NURSE ---
patient provided with meal tray
--- NOTE | 2023-11-20 19:25 | PC.NURSE ---
at 1855 received report from off going nurse, Kay Pacheco RN
[2023-11-20] MEDS: Montelukast Sodium 10 MG TABLET PO (20:44)
--- NOTE | 2023-11-20 20:57 | PC.NURSE ---
pt requested something for sleep, spoke with Ahsan NO, and got pt a PRN melatonin for sleep, pt medicated as requested, will cont plan of care
--- NOTE | 2023-11-20 23:00 | PC.NURSE ---
report given to Griselda GANN
--- NOTE | 2023-11-20 23:37 | MHC.EDTECH ---
This Pct assumed care of Patient ,,Patient was incontinent of urine ,care given ,and fresh ice water given .
[2023-11-21 06:18] VITALS: BP 138/71; PULSE 64; RESP 16; TEMP 36.7; O2SAT 95
--- NOTE | 2023-11-21 06:18 | MHC.EDTECH ---
0600 rounding done ,vitals taken ,Patient was incontinent of urine ,inc care given and bed pads change ,warm blanket given ,Patient was awake all night watching television ,Call oropeza within Patient reach .
--- NOTE | 2023-11-21 06:38 | PC.NURSE ---
No c/o pain overnight. Pt did not sleep much, he refuses to have the lights or tv turned off. Pt incontinent, changed. He does not utilized the call oropeza even though it is within reach, he will call out.
--- NOTE | 2023-11-21 07:55 | MHC.EDTECH ---
Patient given breakfast and eating at this time.
[2023-11-21] MEDS: Fluticasone/Umeclidinium/Vilanterol 100/62.5/25 BLST.W.DEV 1 PUFF INHALE (08:22)
[2023-11-21] MEDS: Aspirin Enteric Coated 81 MG TABLET.DR PO (08:23)
[2023-11-21] MEDS: Atorvastatin Calcium 20 MG TABLET PO (08:23)
[2023-11-21] MEDS: amLODIPine Besylate 5 MG TABLET PO (08:23)
[2023-11-21] MEDS: hydroCHLOROthiazide 12.5 MG TABLET PO (08:23)
[2023-11-21] MEDS: Cholecalciferol (Vitamin D3) 25 MCG TABLET PO (08:23)
--- NOTE | 2023-11-21 08:25 | PC.NURSE ---
Alert and responsive, denies pain, ate well for breakfast.
--- NOTE | 2023-11-21 11:53 | MHC.EDTECH ---
patient moved to the chair with the chair alarm. patient sitting up eating lunch at this time.
--- NOTE | 2023-11-21 13:03 | PC.NURSE ---
Patient oob to bedside recliner , ate well for lunch.
[2023-11-21] MEDS: FLUoxetine HCl Oral Solution 20 MG/5 ML SOLUTION 10 MG PO (14:36)
[2023-11-21 18:27] VITALS: BP 134/58; PULSE 65; RESP 18; TEMP 37.1; O2SAT 97
--- NOTE | 2023-11-21 18:30 | PC.NURSE ---
patient oob to recline for most of day, calm and cooperative, no behaviors this shift
[2023-11-21] MEDS: Montelukast Sodium 10 MG TABLET PO (20:31)
[2023-11-21] MEDS: Melatonin 3 MG TABLET 6 MG PO (20:31)
--- NOTE | 2023-11-21 23:00 | PC.NURSE ---
Assumed care of patient at this time. Patient asleep in bed, resting quietly with even respirations. No acute distress noted.
[2023-11-22 05:44] VITALS: BP 120/58; PULSE 67; RESP 18; TEMP 36.4; O2SAT 95
[2023-11-22 08:25] LABS: Glucose, Whole Blood 109 mg/dL (60-115)
[2023-11-22] MEDS: Fluticasone/Umeclidinium/Vilanterol 100/62.5/25 BLST.W.DEV 1 PUFF INHALE (08:26)
[2023-11-22 08:27] VITALS: PULSE 67; RESP 18
[2023-11-22 09:56] VITALS: BP 115/52
[2023-11-22] MEDS: hydroCHLOROthiazide 12.5 MG TABLET PO (09:56)
[2023-11-22] MEDS: Cholecalciferol (Vitamin D3) 25 MCG TABLET PO (09:56)
[2023-11-22] MEDS: amLODIPine Besylate 5 MG TABLET PO (09:56)
[2023-11-22] MEDS: Aspirin Enteric Coated 81 MG TABLET.DR PO (09:56)
[2023-11-22] MEDS: Atorvastatin Calcium 20 MG TABLET PO (10:01)
--- NOTE | 2023-11-22 10:42 | MHC.CM.ED ---
Addendum entered by Yolanda Kaplan 11/22/23 13:43: None of [facility]'s sister's facilities are able to offer a bed. Alexandra Hwang CM director aware. Original Note: Patient remains in ER overflow. [facility] does not have a bed to offer but requested referral be sent to sister facillities: [facility], [facility], [place], [place] and [place]. Referrals made via [facility]. Continue to monitor for d/c needs.
[2023-11-22 15:30] VITALS: BP 123/52; PULSE 62; RESP 14; TEMP 36.6; O2SAT 98
--- NOTE | 2023-11-22 16:01 | PC.NURSE ---
Received report from previous RN @7am. Pt A&Ox2, mainly turkmen speaking but can make needs known in Romansh. Pt OOB to the chair with max x2 assist. Pt able to move himself in the bed w/o difficulty. Cont to throw his water on the floor in frustration if he is unable to get his needs met immediately. This AM pt wanted to get OOB to the recliner but because it was breakfast time the DIETETIC TECHNICIAN REGISTERED educated pt she is unable to move him by herself but once breakfast is over and there is more help we will be able to. Pt frustrated and threw his pitcher of water on the floor. Pt calm and cooperative throughout the rest of the day.
--- NOTE | 2023-11-22 19:35 | PC.NURSE ---
This RN assumed pt care @ 1900. Pt resting in bed comfortably, watching TV. Pt rang oropeza twice requesting 2100 meds. Pt advised meds not due until 2099. Plan of care ongoing.
[2023-11-22] MEDS: Montelukast Sodium 10 MG TABLET PO (21:12)
--- NOTE | 2023-11-22 21:14 | PC.NURSE ---
Pt medicated per jun. Plan of care ongoing.
[2023-11-23 03:59] VITALS: BP 126/58; PULSE 73; RESP 16; TEMP 36.1; O2SAT 95
[2023-11-23 07:19] VITALS: BP 135/63; PULSE 68; RESP 20; TEMP 36.4; O2SAT 98
--- NOTE | 2023-11-23 07:45 | PC.NURSE ---
Assumed care of patient, patient respirations equal and unlabored, skin dry and intact. patient is awake and alert, VSS.
[2023-11-23] MEDS: Fluticasone/Umeclidinium/Vilanterol 100/62.5/25 BLST.W.DEV 1 PUFF INHALE (08:08)
[2023-11-23 08:09] VITALS: PULSE 68; RESP 20; O2SAT 94
[2023-11-23] MEDS: Atorvastatin Calcium 20 MG TABLET PO (08:32)
[2023-11-23] MEDS: Cholecalciferol (Vitamin D3) 25 MCG TABLET PO (08:32)
[2023-11-23] MEDS: hydroCHLOROthiazide 12.5 MG TABLET PO (08:32)
[2023-11-23] MEDS: amLODIPine Besylate 5 MG TABLET PO (08:32)
[2023-11-23] MEDS: Aspirin Enteric Coated 81 MG TABLET.DR PO (08:32)
--- NOTE | 2023-11-23 08:35 | PC.NURSE ---
patient medicated per JUN, takes meds whole with water
--- NOTE | 2023-11-23 14:00 | PC.NURSE ---
Patients brief noted to be soiled with urine this RN and LINING VAMPER changed patients brief and pads on bed, patient urinal within reach. patient repositioned in bed, sitting quietly watching tv
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
[2023-11-23 16:47] VITALS: BP 123/67; PULSE 68; RESP 20; TEMP 36.5; O2SAT 98
[2023-11-23] MEDS: Enoxaparin Sodium 40 MG/0.4 ML SYRINGE SUBCUT (16:48)
--- NOTE | 2023-11-23 17:09 | PC.NURSE ---
patient is awake and alert, respirations equal and unlabored. patient sitting up and eating dinner. VSS
== END 2023-11-23 18:32 | disposition admitted as inpatient to this hospital (09) ==
PROVIDERS: Student in an Organized Health Care Education/Training Program; Emergency Provider Internal Medicine; PCP Family Medicine
DX: G30.8 Other Alzheimer's disease (principal); F02.80 Dementia in other diseases classified elsewhere, unspecified severity, without behavioral disturbance, psychotic disturbance, mood disturbance, and anxiety; I10 Essential (primary) hypertension; E78.5 Hyperlipidemia, unspecified; J44.9 Chronic obstructive pulmonary disease, unspecified; Z85.46 Personal history of malignant neoplasm of prostate; Z79.899 Other long term (current) drug therapy
CPT/HCPCS: 36415; 80053; 80307; 81001; 82947; 85025; 99285; J1650; S9485

== ENCOUNTER → 2023-11-10 20:31 | Outpatient (BNV) | payer OTHER, SELFPAY | PROVIDERS: Emergency Provider Internal Medicine; PCP Family Medicine; Visit Provider Internal Medicine | DX: F03.90 Unspecified dementia, unspecified severity, without behavioral disturbance, psychotic disturbance, mood disturbance, and anxiety (principal); R46.89 Other symptoms and signs involving appearance and behavior | CPT/HCPCS: 99222 ==

== ENCOUNTER → 2023-11-10 20:31 | Outpatient (BNV) | payer OTHER, SELFPAY | PROVIDERS: Emergency Provider Internal Medicine; PCP Family Medicine; Visit Provider Psychiatry & Neurology Psychiatry | DX: F09 Unspecified mental disorder due to known physiological condition (principal); R46.89 Other symptoms and signs involving appearance and behavior | CPT/HCPCS: 99283 ==

== ENCOUNTER 2023-11-23 18:07 | Observation (INO) | payer OTHER, SELFPAY ==
--- NOTE | ~2023-11-23 | CT_ITS ---
EXAMINATION: CT KNEE WITHOUT CONTRAST, RIGHT CLINICAL INFORMATION: Left knee swelling and pain COMPARISON: Radiographs 12/21/2023 TECHNIQUE: A noncontrast CT of the left knee is performed with sagittal and coronal reformats This CT examination was performed using dose optimization techniques as appropriate, variously including the following: *Automated exposure control *Adjustment of mA and/or kV according to patient size (this includes techniques or standardized protocols for targeted exams where dose is matched to indication/reason for exam; i.e. extremities or head) *Use of iterative reconstruction technique DLP: 167 mGy-cm FINDINGS: Moderate tricompartmental osteoarthritis, most prominent in the medial compartment, with marginal osteophytes. There is a small joint effusion. There is an ossified body in the posterior joint recess. Loose body in a small Moss's cyst as well. No acute fracture. Diffuse vascular calcifications are noted. CT/CT knee RT wo IV con IMPRESSION: Moderate tricompartmental osteoarthritis, most prominent in the medial compartment. No acute osseous abnormality. Electronically signed by: Roger Moore MD 02/03/2024 12:36 PM EDT
--- NOTE | ~2023-11-23 | CT_ITS ---
EXAMINATION: CT HEAD WITHOUT CONTRAST CLINICAL INFORMATION: Status post fall COMPARISON: CT head 08/16/2023, 05/26/2023 TECHNIQUE: Contiguous axial imaging was performed from the skull base to vertex without intravenous administration of contrast. This CT examination was performed using dose optimization techniques as appropriate, variously including the following: *Automated exposure control *Adjustment of mA and/or kV according to patient size (this includes techniques or standardized protocols for targeted exams where dose is matched to indication/reason for exam; i.e. extremities or head) *Use of iterative reconstruction technique DLP: 663 mGy-cm FINDINGS: There is no evidence of acute intracranial hemorrhage, midline shift or mass effect. [place]onan to white matter differentiation is well preserved. No evidence of acute territorial ligamentous infarction. Moderate global the patient is status post bilateral lens extraction. Osseous calvarium is intact. Volume loss is noted with proportionate dilatation of the ventricles and cortical sulci. Periventricular White matter mild patchy low-attenuation changes are noted, likely of chronic microangiopathy. Osseous calvarium is intact. No evidence of significant calvarial soft tissue swelling or hematoma. Mild mucosal thickening in the paranasal sinuses; remainder of the visualized paranasal sinuses are well-aerated. Visualized mastoid air cells and middle ear cavities are well-aerated. There is a 1.5 cm pedunculated polypoid soft tissue with heterogeneous internal hyperdensity projecting off posterior aspect of right superior nasal turbinate abutting posterior nasopharyngeal wall. CT/CT head/brain wo IV con IMPRESSION: No acute intracranial abnormality. Specifically, there is no evidence of acute intracranial hemorrhage or acute fracture of the osseous calvarium. A 1.5 cm pedunculated polypoid soft tissue with heterogeneous internal hyperdensity projecting off posterior aspect of the right superior nasal turbinate abutting the posterior nasopharyngeal wall; recommend ENT consultation and correlation with direct inspection.
--- NOTE | ~2023-11-23 | XR_ITS ---
EXAMINATION: Left knee x-ray. CLINICAL INFORMATION: Left knee pain and swelling COMPARISON: Left knee x-ray on 07/29/2023 TECHNIQUE: Frontal and crosstable lateral portable X-rays of left knee FINDINGS: BONES: Bony structures are intact. Prominent osteophytes are seen in the left medial and lateral femoral condyles. Anterior suprapatellar traction spur is present. There is no focal bone destruction or periosteal reaction seen. JOINTS: Alignment of joints is normal. There is complete loss of medial compartment left knee joint space, with associated genu varus deformity. SOFT TISSUE: Left suprapatellar fat pad shows bulging increase in density.. No radiopaque foreign body or abnormal air collection is seen. XR/XR knee LT 2V IMPRESSION: 1. No acute fracture or dislocation is seen. 2. Persistent left tibiofemoral joint osteoarthritis, most severe in the medial compartment. Interval appearance of genu varus deformity. 3. Left suprapatellar fat pad shows bulging increase in density. Electronically signed by: Danny Deutsch MD 12/22/2023 08:07 AM EDT
[2023-11-23 18:44] VITALS: BP 125/57; PULSE 72; RESP 20; TEMP 36.2; O2SAT 98
[2023-11-23 19:33] VITALS: BP 145/62; PULSE 98; RESP 16; TEMP 36; O2SAT 92
[2023-11-23 19:45] VITALS: BMI 28.0
[2023-11-23] MEDS: Atorvastatin Calcium 20 MG TABLET PO (20:12)
[2023-11-23] MEDS: Montelukast Sodium 10 MG TABLET PO (20:12)
[2023-11-23 20:35] LABS: Creatinine Clr Calc Pharmacy 67.1; Estimated Glomerular Filt Rate > 60
--- NOTE | 2023-11-23 20:46 | MHC.CM.ED ---
Dunae has been in the ed/overflow unit for 11 days. All of his record/notes/CM notes are in . According to Registration, once a patient has been here boarding for 300 hours or more, then need to be discharged and then a new account number is needed when they are admitted.
[2023-11-23] MEDS: Enoxaparin Sodium 40 MG/0.4 ML SYRINGE SUBCUT (20:53)
[2023-11-24 04:00] VITALS: BP 146/69; PULSE 68; RESP 20; TEMP 36.7; O2SAT 96
--- NOTE | 2023-11-24 06:46 | PHA.MEDREC ---
Pharmacy Consult ? Medication Reconciliation Pharmacy has completed the medication reconciliation. Patient discharged 11/22 and returned same day; med rec previously done by pharmacy based on facility list. Carried over from previous account
[2023-11-24 07:29] VITALS: BP 126/59; PULSE 64; RESP 18; TEMP 36.4; O2SAT 96
[2023-11-24] MEDS: Cholecalciferol (Vitamin D3) 25 MCG TABLET PO (07:54)
[2023-11-24] MEDS: hydroCHLOROthiazide 12.5 MG TABLET PO (07:54)
[2023-11-24] MEDS: Aspirin Enteric Coated 81 MG TABLET.DR PO (07:54)
[2023-11-24] MEDS: amLODIPine Besylate 5 MG TABLET PO (07:54)
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
[2023-11-24 16:00] VITALS: BP 142/67; PULSE 72; RESP 18; TEMP 36.2; O2SAT 96
[2023-11-24 19:45] VITALS: BP 141/87; PULSE 74; RESP 18; TEMP 36.2; O2SAT 96
[2023-11-24] MEDS: Atorvastatin Calcium 20 MG TABLET PO (20:35)
[2023-11-24] MEDS: Enoxaparin Sodium 40 MG/0.4 ML SYRINGE SUBCUT (20:35)
[2023-11-24] MEDS: Montelukast Sodium 10 MG TABLET PO (20:35)
[2023-11-25 03:34] VITALS: BP 138/66; PULSE 75; RESP 19; TEMP 35.8; O2SAT 92
[2023-11-25] MEDS: Acetaminophen 325 MG TABLET 650 MG PO (03:55)
[2023-11-25 07:16] VITALS: BP 135/64; PULSE 69; RESP 20; TEMP 37; O2SAT 96
[2023-11-25 08:15] VITALS: PULSE 64; RESP 16; O2SAT 93
[2023-11-25] MEDS: Fluticasone/Umeclidinium/Vilanterol 100/62.5/25 BLST.W.DEV 1 PUFF INHALE (08:15)
[2023-11-25] MEDS: hydroCHLOROthiazide 12.5 MG TABLET PO (09:20)
[2023-11-25] MEDS: Cholecalciferol (Vitamin D3) 25 MCG TABLET PO (09:20)
[2023-11-25] MEDS: amLODIPine Besylate 5 MG TABLET PO (09:20)
[2023-11-25] MEDS: Aspirin Enteric Coated 81 MG TABLET.DR PO (09:20)
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
[2023-11-25 15:50] VITALS: BP 139/66; PULSE 69; RESP 18; TEMP 36.3; O2SAT 97
[2023-11-25 19:19] VITALS: BP 143/69; PULSE 71; RESP 20; TEMP 36.2; O2SAT 96
[2023-11-25] MEDS: Atorvastatin Calcium 20 MG TABLET PO (19:51)
[2023-11-25] MEDS: Enoxaparin Sodium 40 MG/0.4 ML SYRINGE SUBCUT (19:51)
[2023-11-25] MEDS: Montelukast Sodium 10 MG TABLET PO (19:51)
[2023-11-26] MEDS: Melatonin 3 MG TABLET 6 MG PO ×2 (00:38→20:17)
[2023-11-26 03:38] VITALS: BP 129/66; PULSE 72; RESP 20; TEMP 36.3; O2SAT 96
[2023-11-26] MEDS: Fluticasone/Umeclidinium/Vilanterol 100/62.5/25 BLST.W.DEV 1 PUFF INHALE (07:23)
[2023-11-26 07:24] VITALS: PULSE 62; RESP 16; O2SAT 92
[2023-11-26 07:59] VITALS: BP 139/67; PULSE 68; RESP 18; TEMP 35.9; O2SAT 96
[2023-11-26] MEDS: amLODIPine Besylate 5 MG TABLET PO (08:35)
[2023-11-26] MEDS: Acetaminophen 325 MG TABLET 650 MG PO ×2 (08:35→19:42)
[2023-11-26] MEDS: hydroCHLOROthiazide 12.5 MG TABLET PO (08:35)
[2023-11-26] MEDS: Aspirin Enteric Coated 81 MG TABLET.DR PO (08:35)
[2023-11-26] MEDS: Cholecalciferol (Vitamin D3) 25 MCG TABLET PO (08:35)
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
[2023-11-26 12:01] VITALS: BP 117/55; PULSE 64; RESP 20; TEMP 36.2; O2SAT 97
[2023-11-26 15:20] VITALS: BP 138/78; PULSE 63; RESP 18; TEMP 36.3; O2SAT 97
[2023-11-26 19:20] VITALS: BP 139/67; PULSE 68; RESP 20; TEMP 36.6; O2SAT 96
[2023-11-26] MEDS: Atorvastatin Calcium 20 MG TABLET PO (20:16)
[2023-11-26] MEDS: Enoxaparin Sodium 40 MG/0.4 ML SYRINGE SUBCUT (20:17)
[2023-11-26] MEDS: Montelukast Sodium 10 MG TABLET PO (20:17)
[2023-11-27] VITALS (8 sets, daily range): BP systolic 131–162; BP diastolic 64–92; PULSE 60–88; RESP 14–20; TEMP 35.9–36.8; O2SAT 93–100
[2023-11-27] MEDS: Milk of Magnesia 30 ML ORAL.SUSP PO (07:02)
[2023-11-27] MEDS: Fluticasone/Umeclidinium/Vilanterol 100/62.5/25 BLST.W.DEV 1 PUFF INHALE (07:30)
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
[2023-11-27] MEDS: Aspirin Enteric Coated 81 MG TABLET.DR PO (08:53)
[2023-11-27] MEDS: hydroCHLOROthiazide 12.5 MG TABLET PO (08:53)
[2023-11-27] MEDS: Cholecalciferol (Vitamin D3) 25 MCG TABLET PO (08:53)
[2023-11-27] MEDS: amLODIPine Besylate 5 MG TABLET PO (08:53)
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
[2023-11-27] MEDS: Montelukast Sodium 10 MG TABLET PO (20:24)
[2023-11-27] MEDS: Acetaminophen 325 MG TABLET 650 MG PO (20:24)
[2023-11-27] MEDS: Melatonin 3 MG TABLET 6 MG PO (20:24)
[2023-11-27] MEDS: Atorvastatin Calcium 20 MG TABLET PO (20:24)
[2023-11-27] MEDS: Enoxaparin Sodium 40 MG/0.4 ML SYRINGE SUBCUT (20:26)
[2023-11-28] VITALS (7 sets, daily range): BP systolic 124–144; BP diastolic 51–67; PULSE 56–67; RESP 16–20; TEMP 36.1–36.4; O2SAT 94–98
[2023-11-28] MEDS: Fluticasone/Umeclidinium/Vilanterol 100/62.5/25 BLST.W.DEV 1 PUFF INHALE (07:34)
[2023-11-28] MEDS: Aspirin Enteric Coated 81 MG TABLET.DR PO (08:31)
[2023-11-28] MEDS: amLODIPine Besylate 5 MG TABLET PO (08:31)
[2023-11-28] MEDS: Cholecalciferol (Vitamin D3) 25 MCG TABLET PO (08:31)
[2023-11-28] MEDS: hydroCHLOROthiazide 12.5 MG TABLET PO (08:31)
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
--- NOTE | 2023-11-28 14:18 | MHC.CM.PN ---
Addendum entered by iNeves Bazzi 11/28/23 15:56: Call placed to [facility], this CM spoke to Dipika in admissions regarding pt referral, per Dipika they are currently full but will review his case once its faxed to them. Pts clinicals faxed to [facility]. Original Note: EMR reviewed and per MD rounds, pt remains medically cleared for discharge, but unable to due to no current LTC bed offers. [facility].
[2023-11-28] MEDS: Atorvastatin Calcium 20 MG TABLET PO (20:09)
[2023-11-28] MEDS: Montelukast Sodium 10 MG TABLET PO (20:09)
[2023-11-28] MEDS: Enoxaparin Sodium 40 MG/0.4 ML SYRINGE SUBCUT (20:09)
[2023-11-28] MEDS: Acetaminophen 325 MG TABLET 650 MG PO (20:09)
[2023-11-28] MEDS: Melatonin 3 MG TABLET 6 MG PO (20:09)
[2023-11-29 04:00] VITALS: BP 142/65; PULSE 85; RESP 16; TEMP 36.7; O2SAT 95
[2023-11-29] MEDS: Fluticasone/Umeclidinium/Vilanterol 100/62.5/25 BLST.W.DEV 1 PUFF INHALE (07:27)
[2023-11-29 07:28] VITALS: PULSE 85; RESP 16; O2SAT 93
[2023-11-29 07:59] VITALS: BP 127/61; PULSE 74; RESP 18; TEMP 36.2; O2SAT 98
[2023-11-29] MEDS: Cholecalciferol (Vitamin D3) 25 MCG TABLET PO (08:30)
[2023-11-29] MEDS: amLODIPine Besylate 5 MG TABLET PO (08:30)
[2023-11-29] MEDS: hydroCHLOROthiazide 12.5 MG TABLET PO (08:30)
[2023-11-29] MEDS: Aspirin Enteric Coated 81 MG TABLET.DR PO (08:30)
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
[2023-11-29 15:23] VITALS: BP 136/62; PULSE 68; RESP 20; TEMP 36.1; O2SAT 97
[2023-11-29 19:13] VITALS: BP 149/65; PULSE 62; RESP 20; TEMP 36.1; O2SAT 96
[2023-11-29] MEDS: Enoxaparin Sodium 40 MG/0.4 ML SYRINGE SUBCUT (21:50)
[2023-11-29] MEDS: Montelukast Sodium 10 MG TABLET PO (21:51)
[2023-11-29] MEDS: Atorvastatin Calcium 20 MG TABLET PO (21:51)
[2023-11-30 04:00] VITALS: BP 121/61; PULSE 68; RESP 20; TEMP 36.1; O2SAT 97
[2023-11-30 06:39] LABS: Anion Gap 12 (12-20); Blood Urea Nitrogen 15 mg/dL (9-16); Carbon Dioxide 30 mmol/L (22-29); Chloride 99 mmol/L (96-108); Creatinine Clr Calc Pharmacy 68.8; Estimated Glomerular Filt Rate > 60; Glucose Random 106 mg/dL (60-115); Potassium 3.9 mmol/L (3.3-5.1); Sodium 137 mmol/L (135-145)
[2023-11-30 06:43] LABS: Hematocrit 43.1 % (42.0-52.0); Mean Corpuscular HGB Conc 34.8 g/dl (31.0-36.0); Mean Corpuscular Hemoglobin 29.9 pg (27.0-33.0); Mean Corpuscular Volume 85.9 fL (80.0-98.0); Mean Platelet Volume 10.6 fL (9.4-12.4); Platelet Count 295 X10*3/uL (160-400); Red Blood Count 5.02 X10*6/uL (4.60-5.80); Red Cell Distribution Width 13.1 % (11.0-16.0); White Blood Count 9.6 X10*3/uL (4.8-10.8)
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
[2023-11-30 07:40] VITALS: BP 130/65; PULSE 74; RESP 18; TEMP 36; O2SAT 98
[2023-11-30] MEDS: Fluticasone/Umeclidinium/Vilanterol 100/62.5/25 BLST.W.DEV 1 PUFF INHALE (07:51)
[2023-11-30] MEDS: Aspirin Enteric Coated 81 MG TABLET.DR PO (08:26)
[2023-11-30] MEDS: amLODIPine Besylate 5 MG TABLET PO (08:26)
[2023-11-30] MEDS: hydroCHLOROthiazide 12.5 MG TABLET PO (08:26)
[2023-11-30] MEDS: Cholecalciferol (Vitamin D3) 25 MCG TABLET PO (08:26)
[2023-11-30] MEDS: Acetaminophen 325 MG TABLET 650 MG PO (10:34)
--- NOTE | 2023-11-30 14:15 | MHC.CM.PN ---
Addendum entered by Nieves Bazzi 11/30/23 16:07: This CM left a voicemail for admissions liaison Dipika at [facility] to inquire if they have been able to review pts information and determine if he is appropriate for their facility, awaiting return call. Original Note: EMR reviewed and per MD rounds, pt remains medically cleared for discharge, but unable to due to no current LTC bed offers. [facility]errals, no accepting facilites.
[2023-11-30 15:53] VITALS: BP 142/59; PULSE 64; RESP 20; TEMP 36.1; O2SAT 98
[2023-11-30 17:57] VITALS: BP 141/69; PULSE 101; RESP 19; TEMP 36.4; O2SAT 97
[2023-11-30] MEDS: Dextrose 5 % and 0.9 % NaCl 1,000 ML 80 ML IVCONT (19:09)
[2023-11-30 20:00] VITALS: BP 137/62; PULSE 72; RESP 18; TEMP 36.1; O2SAT 96
[2023-11-30] MEDS: Enoxaparin Sodium 40 MG/0.4 ML SYRINGE SUBCUT (20:18)
[2023-12-01] VITALS (7 sets, daily range): BP systolic 132–158; BP diastolic 55–66; PULSE 62–90; RESP 12–20; TEMP 36.1–36.6; O2SAT 90–98
--- NOTE | 2023-12-01 06:22 | PC.NURSE ---
Patient observed coughing while eating his dinner. Clinical Academic Allergist went to assess patient and observed patient coughing as he was eating his dinner with each bite. Patient educated that it was not safe for him to continue eating. Clinical Academic Allergist attempted to suction patients mouth with no output. Provider made aware of incident and patient received orders to be strict NPO. Vitals performed following coughing and were BP 141/69, P101, temp 97.5, o2 97% on room air. Patient verbalized he felt as if something was stuck in his mouth but upon assessment no food or participles were observed in his mouth. Lung sounds performed and remained clear and diminished at bases. Patient educated on being strict NPO until he is assessed by speech. New IV placed and fluids started.
[2023-12-01] MEDS: Dextrose 5 % and 0.9 % NaCl 1,000 ML 80 ML IVCONT ×2 (07:18→18:20)
[2023-12-01] MEDS: Fluticasone/Umeclidinium/Vilanterol 100/62.5/25 BLST.W.DEV 1 PUFF INHALE (07:42)
[2023-12-01] MEDS: Cholecalciferol (Vitamin D3) 25 MCG TABLET PO (12:15)
[2023-12-01] MEDS: amLODIPine Besylate 5 MG TABLET PO (12:16)
[2023-12-01] MEDS: hydroCHLOROthiazide 12.5 MG TABLET PO (12:16)
[2023-12-01] MEDS: Aspirin Enteric Coated 81 MG TABLET.DR PO (12:16)
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
[2023-12-01] MEDS: Montelukast Sodium 10 MG TABLET PO (19:56)
[2023-12-01] MEDS: Enoxaparin Sodium 40 MG/0.4 ML SYRINGE SUBCUT (19:56)
[2023-12-01] MEDS: Atorvastatin Calcium 20 MG TABLET PO (19:56)
[2023-12-01] MEDS: Acetaminophen 325 MG TABLET 650 MG PO (20:01)
[2023-12-02] MEDS: Dextrose 5 % and 0.9 % NaCl 1,000 ML 80 ML IVCONT (06:11)
[2023-12-02 07:59] VITALS: BP 152/68; PULSE 68; RESP 18; TEMP 36.5; O2SAT 97
[2023-12-02] MEDS: Fluticasone/Umeclidinium/Vilanterol 100/62.5/25 BLST.W.DEV 1 PUFF INHALE (07:59)
[2023-12-02 08:00] VITALS: PULSE 67; RESP 16; O2SAT 97
[2023-12-02] MEDS: amLODIPine Besylate 5 MG TABLET PO (09:24)
[2023-12-02] MEDS: hydroCHLOROthiazide 12.5 MG TABLET PO (09:24)
[2023-12-02] MEDS: Aspirin Enteric Coated 81 MG TABLET.DR PO (09:25)
[2023-12-02] MEDS: Cholecalciferol (Vitamin D3) 25 MCG TABLET PO (09:25)
--- NOTE | 2023-12-02 11:34 | MHC.CM.PN ---
Very broad SNF search is ongoing, with no bed offers. CM will continue to follow.
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
--- NOTE | 2023-12-02 13:29 | MHC.SL.SWA ---
Speech Pathologist Impression: Risk of aspiration, oral phase dysphagia Dysphasia Diet Status: No changes Liquid Consistency and Strategies for Safe Swallow: Liquid Intake Recommendation: Thin Liquid Intake Strategies: Small Sips Solid Food Consistency: Dietary Recommendations: Chopped/Advanced (NDD3) Additional Modifications to Solid Foods: Recommend Chopped/Advanced (NDD3) to minimize repeat choking event. Patient will benefit from food precut, and in softer consistency. Oral Medication Intake: Whole with Liquid Please contact the pharmacy regarding appropriate crushable or liquid drug formulations that are available whenever modified delivery is recommended. Compensatory Strategies and Precautions to be Taken for Safe Swallow: Sitting Upright (90 deg) Small Bites and Sips Alternate Liquids/Solids Rate of Ingestion Change Supervision While Eating and Drinking for Safe Swallow: None Needed Foods to Avoid: Too large pieces of food, very hard consistencies. Swallowing Recommended Treatments: Compens. Strategy Educat. Recommendation for Speech: D/C Please re-refer with any changes or if LINK TRAINER can be of further assistance. Ocean Freight Agent Clinican/Clinical Fellow: No Supervisory Statement: I have reviewed and agree with the student/clinical fellow's documentation: N/A Speech Language Pathologist: Lesa Griggs M.A., CCC-LINK TRAINER
[2023-12-02 15:50] VITALS: BP 118/53; PULSE 67; RESP 18; TEMP 36.2; O2SAT 97
[2023-12-02 20:00] VITALS: BP 128/60; PULSE 68; RESP 18; TEMP 36.3; O2SAT 97
[2023-12-02] MEDS: Enoxaparin Sodium 40 MG/0.4 ML SYRINGE SUBCUT (20:16)
[2023-12-02] MEDS: Montelukast Sodium 10 MG TABLET PO (20:16)
[2023-12-02] MEDS: Atorvastatin Calcium 20 MG TABLET PO (20:16)
[2023-12-03 03:26] VITALS: BP 156/75; PULSE 73; RESP 20; TEMP 37; O2SAT 96
[2023-12-03 07:13] VITALS: BP 114/54; PULSE 65; RESP 18; TEMP 36.3; O2SAT 97
[2023-12-03] MEDS: Fluticasone/Umeclidinium/Vilanterol 100/62.5/25 BLST.W.DEV 1 PUFF INHALE (07:26)
[2023-12-03 07:27] VITALS: PULSE 71; RESP 16; O2SAT 98
[2023-12-03] MEDS: amLODIPine Besylate 5 MG TABLET PO (08:26)
[2023-12-03] MEDS: Aspirin Enteric Coated 81 MG TABLET.DR PO (08:26)
[2023-12-03] MEDS: Cholecalciferol (Vitamin D3) 25 MCG TABLET PO (08:26)
[2023-12-03] MEDS: hydroCHLOROthiazide 12.5 MG TABLET PO (08:26)
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
[2023-12-03 15:52] VITALS: BP 142/73; PULSE 68; RESP 18; TEMP 36.6; O2SAT 96
[2023-12-03 19:52] VITALS: BP 150/70; PULSE 76; RESP 18; TEMP 36.2; O2SAT 97
[2023-12-03] MEDS: Montelukast Sodium 10 MG TABLET PO (20:09)
[2023-12-03] MEDS: Atorvastatin Calcium 20 MG TABLET PO (20:09)
[2023-12-03] MEDS: Enoxaparin Sodium 40 MG/0.4 ML SYRINGE SUBCUT (20:10)
[2023-12-04 03:53] VITALS: BP 115/66; PULSE 76; RESP 20; TEMP 36.3; O2SAT 97
[2023-12-04 07:18] VITALS: BP 119/60; PULSE 66; RESP 18; TEMP 36.3; O2SAT 98
[2023-12-04] MEDS: Fluticasone/Umeclidinium/Vilanterol 100/62.5/25 BLST.W.DEV 1 PUFF INHALE (07:43)
[2023-12-04 07:44] VITALS: PULSE 68; RESP 6; O2SAT 96
[2023-12-04] MEDS: amLODIPine Besylate 5 MG TABLET PO (08:54)
[2023-12-04] MEDS: Aspirin Enteric Coated 81 MG TABLET.DR PO (08:54)
[2023-12-04] MEDS: Cholecalciferol (Vitamin D3) 25 MCG TABLET PO (08:55)
[2023-12-04] MEDS: hydroCHLOROthiazide 12.5 MG TABLET PO (08:55)
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
[2023-12-04] MEDS: FLUoxetine HCl 20 MG CAPSULE PO (13:27)
[2023-12-04 15:00] VITALS: BP 148/61; PULSE 84; RESP 20; TEMP 36.7; O2SAT 97
[2023-12-04 19:01] VITALS: BP 147/63; PULSE 74; RESP 20; TEMP 36.2; O2SAT 97
[2023-12-04] MEDS: Enoxaparin Sodium 40 MG/0.4 ML SYRINGE SUBCUT (20:12)
[2023-12-04] MEDS: Montelukast Sodium 10 MG TABLET PO (20:12)
[2023-12-04] MEDS: Atorvastatin Calcium 20 MG TABLET PO (20:12)
[2023-12-05 04:00] VITALS: BP 124/69; PULSE 70; RESP 20; TEMP 36.1; O2SAT 96
[2023-12-05] MEDS: Fluticasone/Umeclidinium/Vilanterol 100/62.5/25 BLST.W.DEV 1 PUFF INHALE (07:45)
[2023-12-05 07:46] VITALS: BP 128/60; PULSE 71; RESP 17; TEMP 36.4; O2SAT 97
[2023-12-05 07:47] VITALS: PULSE 61; RESP 18; O2SAT 97
[2023-12-05] MEDS: FLUoxetine HCl 20 MG CAPSULE PO (08:25)
[2023-12-05] MEDS: amLODIPine Besylate 5 MG TABLET PO (08:25)
[2023-12-05] MEDS: Cholecalciferol (Vitamin D3) 25 MCG TABLET PO (08:25)
[2023-12-05] MEDS: Aspirin Enteric Coated 81 MG TABLET.DR PO (08:25)
[2023-12-05] MEDS: hydroCHLOROthiazide 12.5 MG TABLET PO (08:25)
--- NOTE | 2023-12-05 11:08 | MHC.CM.PN ---
Patient's broad SNF search has been updated; CM will follow.
[2023-12-05 11:33] VITALS: BP 132/62; PULSE 68; RESP 18; TEMP 36.3; O2SAT 96
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
[2023-12-05 15:19] LABS: Hematocrit 41.4 % (42.0-52.0); Hemoglobin 14.8 g/dl (14.0-18.0); Mean Corpuscular HGB Conc 35.7 g/dl (31.0-36.0); Mean Corpuscular Hemoglobin 30.6 pg (27.0-33.0); Mean Corpuscular Volume 85.5 fL (80.0-98.0); Mean Platelet Volume 10.1 fL (9.4-12.4); Platelet Count 328 X10*3/uL (160-400); Red Blood Count 4.84 X10*6/uL (4.60-5.80); Red Cell Distribution Width 12.9 % (11.0-16.0)
[2023-12-05 15:42] LABS: Anion Gap 14 (12-20); Blood Urea Nitrogen 14 mg/dL (9-16); Calcium 9.6 mg/dL (8.4-10.2); Carbon Dioxide 29 mmol/L (22-29); Chloride 96 mmol/L (96-108); Creatinine Clr Calc Pharmacy 58.8; Estimated Glomerular Filt Rate > 60; Glucose Random 130 mg/dL (60-115); Potassium 3.6 mmol/L (3.3-5.1); Sodium 135 mmol/L (135-145)
[2023-12-05 16:00] VITALS: BP 136/68; PULSE 69; TEMP 36.4; O2SAT 96
[2023-12-05] MEDS: Atorvastatin Calcium 20 MG TABLET PO (19:40)
[2023-12-05] MEDS: Enoxaparin Sodium 40 MG/0.4 ML SYRINGE SUBCUT (19:40)
[2023-12-05] MEDS: Montelukast Sodium 10 MG TABLET PO (19:40)
[2023-12-05 20:00] VITALS: BP 147/71; PULSE 69; RESP 18; TEMP 36.1; O2SAT 99
[2023-12-06] MEDS: Melatonin 3 MG TABLET 6 MG PO ×2 (01:32→22:43)
[2023-12-06 03:56] VITALS: BP 111/56; PULSE 71; RESP 20; TEMP 36.6; O2SAT 95
[2023-12-06] MEDS: Fluticasone/Umeclidinium/Vilanterol 100/62.5/25 BLST.W.DEV 1 PUFF INHALE (07:50)
[2023-12-06 07:51] VITALS: PULSE 69; RESP 18; O2SAT 96
[2023-12-06 08:01] VITALS: BP 134/72; PULSE 74; RESP 18; TEMP 36.6; O2SAT 96
[2023-12-06] MEDS: Aspirin Enteric Coated 81 MG TABLET.DR PO (10:36)
[2023-12-06] MEDS: Cholecalciferol (Vitamin D3) 25 MCG TABLET PO (10:36)
[2023-12-06] MEDS: amLODIPine Besylate 5 MG TABLET PO (10:36)
[2023-12-06] MEDS: FLUoxetine HCl 20 MG CAPSULE PO (10:36)
[2023-12-06] MEDS: hydroCHLOROthiazide 12.5 MG TABLET PO (10:37)
--- NOTE | 2023-12-06 11:05 | MHC.CM.PN ---
Pt has been medically cleared for DC, wide SNF search has resulted in no acceptances due to pt. requiring Dementia Care unit and no beds are available. CM has left a VM message for Rayne, dtr / HCP to ask if she is willing to consider care at home for pt. Will discuss services of [facility] and [facility] with family to see if they can bring him home with services.
[2023-12-06 12:08] VITALS: BP 140/71; PULSE 69; RESP 18; TEMP 36.3; O2SAT 98
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
[2023-12-06 15:25] VITALS: BP 130/59; PULSE 68; RESP 18; TEMP 36; O2SAT 95
[2023-12-06 20:00] VITALS: BP 141/71; PULSE 75; RESP 18; TEMP 36.2; O2SAT 96
[2023-12-06] MEDS: Enoxaparin Sodium 40 MG/0.4 ML SYRINGE SUBCUT (21:22)
[2023-12-06] MEDS: Montelukast Sodium 10 MG TABLET PO (21:22)
[2023-12-06] MEDS: Atorvastatin Calcium 20 MG TABLET PO (21:22)
[2023-12-07 03:08] VITALS: BP 137/66; PULSE 66; RESP 18; TEMP 36.1; O2SAT 94
[2023-12-07 07:08] VITALS: BP 135/67; PULSE 71; RESP 18; TEMP 36.1; O2SAT 96
[2023-12-07 07:32] VITALS: PULSE 71; RESP 18; O2SAT 94
[2023-12-07] MEDS: Fluticasone/Umeclidinium/Vilanterol 100/62.5/25 BLST.W.DEV 1 PUFF INHALE (07:32)
[2023-12-07 08:08] VITALS: BP 132/62
[2023-12-07] MEDS: FLUoxetine HCl 20 MG CAPSULE PO (08:08)
[2023-12-07] MEDS: amLODIPine Besylate 5 MG TABLET PO (08:08)
[2023-12-07] MEDS: Cholecalciferol (Vitamin D3) 25 MCG TABLET PO (08:08)
[2023-12-07] MEDS: Aspirin Enteric Coated 81 MG TABLET.DR PO (08:09)
[2023-12-07] MEDS: hydroCHLOROthiazide 12.5 MG TABLET PO (08:09)
[2023-12-07] MEDS: Artificial Tears 15 ML DROPS 2 DROP EYE-BOTH (10:20)
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
--- NOTE | 2023-12-07 12:55 | MHC.CM.PN ---
There are still no SNF bed offers from significant SNF bed search; CM will follow.
[2023-12-07 15:45] VITALS: BP 134/63; PULSE 71; RESP 19; TEMP 36.7; O2SAT 95
[2023-12-07 19:10] VITALS: BP 146/70; PULSE 74; RESP 18; TEMP 36.9; O2SAT 95
[2023-12-07] MEDS: Enoxaparin Sodium 40 MG/0.4 ML SYRINGE SUBCUT (20:02)
[2023-12-07] MEDS: Montelukast Sodium 10 MG TABLET PO (20:02)
[2023-12-07] MEDS: Atorvastatin Calcium 20 MG TABLET PO (20:02)
[2023-12-07] MEDS: traZODone HCL 50 MG TABLET PO (20:02)
[2023-12-08 03:20] VITALS: BP 136/64; PULSE 65; RESP 16; TEMP 36.6; O2SAT 99
[2023-12-08] MEDS: Fluticasone/Umeclidinium/Vilanterol 100/62.5/25 BLST.W.DEV 1 PUFF INHALE (07:32)
[2023-12-08 07:33] VITALS: PULSE 74; RESP 16; O2SAT 93
[2023-12-08 08:00] VITALS: BP 126/59; PULSE 70; RESP 20; TEMP 36.1; O2SAT 96
[2023-12-08] MEDS: Cholecalciferol (Vitamin D3) 25 MCG TABLET PO (08:25)
[2023-12-08] MEDS: Milk of Magnesia 30 ML ORAL.SUSP PO (08:25)
[2023-12-08] MEDS: hydroCHLOROthiazide 12.5 MG TABLET PO (08:25)
[2023-12-08] MEDS: Aspirin Enteric Coated 81 MG TABLET.DR PO (08:25)
[2023-12-08] MEDS: FLUoxetine HCl 20 MG CAPSULE PO (08:25)
[2023-12-08] MEDS: amLODIPine Besylate 5 MG TABLET PO (08:26)
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
[2023-12-08 15:37] VITALS: BP 130/61; PULSE 76; RESP 21; TEMP 36.4; O2SAT 96
[2023-12-08 20:00] VITALS: BP 144/65; PULSE 72; RESP 18; TEMP 36.1; O2SAT 98
[2023-12-08] MEDS: Montelukast Sodium 10 MG TABLET PO (20:51)
[2023-12-08] MEDS: traZODone HCL 50 MG TABLET PO (20:51)
[2023-12-08] MEDS: Enoxaparin Sodium 40 MG/0.4 ML SYRINGE SUBCUT (20:52)
[2023-12-08] MEDS: Atorvastatin Calcium 20 MG TABLET PO (20:52)
[2023-12-09 03:54] VITALS: BP 132/60; PULSE 63; RESP 18; TEMP 36.1; O2SAT 92
[2023-12-09 08:00] VITALS: BP 138/65; PULSE 67; RESP 20; TEMP 36.1; O2SAT 95
[2023-12-09] MEDS: Acetaminophen 325 MG TABLET 650 MG PO ×2 (08:24→21:29)
[2023-12-09 08:25] VITALS: BP 138/65
[2023-12-09] MEDS: Cholecalciferol (Vitamin D3) 25 MCG TABLET PO (08:25)
[2023-12-09] MEDS: hydroCHLOROthiazide 12.5 MG TABLET PO (08:25)
[2023-12-09] MEDS: amLODIPine Besylate 5 MG TABLET PO (08:25)
[2023-12-09] MEDS: Aspirin Enteric Coated 81 MG TABLET.DR PO (08:25)
[2023-12-09] MEDS: FLUoxetine HCl 20 MG CAPSULE PO (08:25)
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
--- NOTE | 2023-12-09 13:02 | MHC.CM.PN ---
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
[2023-12-09 16:00] VITALS: BP 161/71; PULSE 61; RESP 16; TEMP 36.4; O2SAT 97
[2023-12-09 19:59] VITALS: BP 149/67; PULSE 73; RESP 18; TEMP 36.4; O2SAT 96
[2023-12-09] MEDS: Enoxaparin Sodium 40 MG/0.4 ML SYRINGE SUBCUT (21:29)
[2023-12-09] MEDS: Atorvastatin Calcium 20 MG TABLET PO (21:29)
[2023-12-09] MEDS: traZODone HCL 50 MG TABLET PO (21:29)
[2023-12-09] MEDS: Montelukast Sodium 10 MG TABLET PO (21:29)
[2023-12-10 03:33] VITALS: BP 138/67; PULSE 72; RESP 18; TEMP 36.2; O2SAT 97
[2023-12-10] MEDS: Fluticasone/Umeclidinium/Vilanterol 100/62.5/25 BLST.W.DEV 1 PUFF INHALE (07:53)
[2023-12-10 07:55] VITALS: PULSE 77; RESP 20; O2SAT 96
[2023-12-10 08:00] VITALS: BP 132/61; PULSE 65; RESP 19; TEMP 36.6; O2SAT 95
[2023-12-10] MEDS: hydroCHLOROthiazide 12.5 MG TABLET PO (08:18)
[2023-12-10] MEDS: amLODIPine Besylate 5 MG TABLET PO (08:18)
[2023-12-10] MEDS: FLUoxetine HCl 20 MG CAPSULE PO (08:18)
[2023-12-10] MEDS: Cholecalciferol (Vitamin D3) 25 MCG TABLET PO (08:18)
[2023-12-10] MEDS: Acetaminophen 325 MG TABLET 650 MG PO ×2 (08:18→20:40)
[2023-12-10] MEDS: Aspirin Enteric Coated 81 MG TABLET.DR PO (08:18)
[2023-12-10 12:14] VITALS: BP 131/56; PULSE 73; RESP 19; TEMP 36.6; O2SAT 94
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
[2023-12-10 15:28] VITALS: BP 127/60; PULSE 70; RESP 20; TEMP 36.3; O2SAT 97
[2023-12-10 19:17] VITALS: BP 136/70; PULSE 70; RESP 20; TEMP 36.1; O2SAT 96
[2023-12-10] MEDS: traZODone HCL 50 MG TABLET PO (20:40)
[2023-12-10] MEDS: Atorvastatin Calcium 20 MG TABLET PO (20:40)
[2023-12-10] MEDS: Enoxaparin Sodium 40 MG/0.4 ML SYRINGE SUBCUT (20:40)
[2023-12-10] MEDS: Montelukast Sodium 10 MG TABLET PO (20:40)
[2023-12-11] VITALS (7 sets, daily range): BP systolic 126–158; BP diastolic 60–79; PULSE 60–91; RESP 18–20; TEMP 36.3–36.7; O2SAT 95–98
[2023-12-11] MEDS: Fluticasone/Umeclidinium/Vilanterol 100/62.5/25 BLST.W.DEV 1 PUFF INHALE (08:01)
[2023-12-11] MEDS: Cholecalciferol (Vitamin D3) 25 MCG TABLET PO (09:29)
[2023-12-11] MEDS: hydroCHLOROthiazide 12.5 MG TABLET PO (09:29)
[2023-12-11] MEDS: FLUoxetine HCl 20 MG CAPSULE PO (09:29)
[2023-12-11] MEDS: Acetaminophen 325 MG TABLET 650 MG PO (09:29)
[2023-12-11] MEDS: Aspirin Enteric Coated 81 MG TABLET.DR PO (09:29)
[2023-12-11] MEDS: amLODIPine Besylate 5 MG TABLET PO (09:30)
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
[2023-12-11] MEDS: Atorvastatin Calcium 20 MG TABLET PO (21:47)
[2023-12-11] MEDS: traZODone HCL 50 MG TABLET PO (21:47)
[2023-12-11] MEDS: Enoxaparin Sodium 40 MG/0.4 ML SYRINGE SUBCUT (21:47)
[2023-12-11] MEDS: Montelukast Sodium 10 MG TABLET PO (21:47)
[2023-12-12 03:08] VITALS: BP 141/63; PULSE 70; RESP 18; TEMP 36.5; O2SAT 97
[2023-12-12 07:19] VITALS: BP 141/75; PULSE 75; RESP 20; TEMP 36.2; O2SAT 97
[2023-12-12] MEDS: amLODIPine Besylate 5 MG TABLET PO (08:30)
[2023-12-12] MEDS: Aspirin Enteric Coated 81 MG TABLET.DR PO (08:31)
[2023-12-12] MEDS: Cholecalciferol (Vitamin D3) 25 MCG TABLET PO (08:31)
[2023-12-12] MEDS: hydroCHLOROthiazide 12.5 MG TABLET PO (08:31)
[2023-12-12] MEDS: FLUoxetine HCl 20 MG CAPSULE PO (08:31)
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
--- NOTE | 2023-12-12 12:15 | MHC.CM.PN ---
EMR REVIEWED, CM CONT'S TO WAIT FOR BED OFFER FOR PT, CM CONSULTED W/CARE TEAM REGARDING PLACEMENT, SNF'S THEY RECOMMENDED WERE [facility], CM REACHED OUT TO AND UPDATED [facility] WHO REPORT THEY WILL FOLLOW HOWEVER DO NOT HAVE BED AVAILABILITY AT THIS TIME, CM STILL AWAITING RESPONSE FROM [facility], REFERRAL TO BE EXPANDED TO [facility] AND CM WILL CONT TO FOLLOW.
[2023-12-12 16:00] VITALS: BP 138/62; PULSE 78; RESP 20; TEMP 36.2; O2SAT 96
[2023-12-12 19:24] VITALS: BP 127/63; PULSE 71; RESP 18; TEMP 36.2; O2SAT 95
[2023-12-12] MEDS: Montelukast Sodium 10 MG TABLET PO (20:09)
[2023-12-12] MEDS: Enoxaparin Sodium 40 MG/0.4 ML SYRINGE SUBCUT (20:09)
[2023-12-12] MEDS: Atorvastatin Calcium 20 MG TABLET PO (20:09)
[2023-12-12] MEDS: traZODone HCL 50 MG TABLET PO (20:10)
[2023-12-13] VITALS: BP 154/67; PULSE 72; RESP 72; TEMP 36; O2SAT 98
[2023-12-13 04:00] VITALS: BP 147/64; PULSE 70; RESP 15; TEMP 36.4; O2SAT 98
[2023-12-13 07:44] VITALS: BP 110/63; PULSE 66; RESP 20; TEMP 35.9; O2SAT 96
[2023-12-13] MEDS: Fluticasone/Umeclidinium/Vilanterol 100/62.5/25 BLST.W.DEV 1 PUFF INHALE (07:44)
[2023-12-13 07:47] VITALS: PULSE 66; RESP 18; O2SAT 96
[2023-12-13] MEDS: Acetaminophen 325 MG TABLET 650 MG PO ×2 (08:35→20:59)
[2023-12-13] MEDS: Aspirin Enteric Coated 81 MG TABLET.DR PO (08:35)
[2023-12-13] MEDS: Cholecalciferol (Vitamin D3) 25 MCG TABLET PO (08:35)
[2023-12-13] MEDS: amLODIPine Besylate 5 MG TABLET PO (08:35)
[2023-12-13] MEDS: hydroCHLOROthiazide 12.5 MG TABLET PO (08:35)
[2023-12-13] MEDS: FLUoxetine HCl 20 MG CAPSULE PO (08:35)
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
[2023-12-13 15:55] VITALS: BP 140/63; PULSE 78; RESP 18; TEMP 36.2; O2SAT 95
[2023-12-13 19:13] VITALS: BP 134/62; PULSE 67; RESP 16; TEMP 36.3; O2SAT 97
[2023-12-13] MEDS: traZODone HCL 50 MG TABLET PO (20:57)
[2023-12-13] MEDS: Atorvastatin Calcium 20 MG TABLET PO (20:57)
[2023-12-13] MEDS: Montelukast Sodium 10 MG TABLET PO (20:57)
[2023-12-13] MEDS: Enoxaparin Sodium 40 MG/0.4 ML SYRINGE SUBCUT (21:01)
[2023-12-14 03:51] VITALS: BP 122/72; PULSE 76; RESP 20; TEMP 36.1; O2SAT 96
[2023-12-14] MEDS: Acetaminophen 325 MG TABLET 650 MG PO ×2 (05:30→21:06)
[2023-12-14 07:41] VITALS: BP 145/67; PULSE 62; RESP 18; TEMP 36.2; O2SAT 97
--- NOTE | 2023-12-14 09:03 | MHC.CM.PN ---
EMR REVIEWED, [facility] AND [facility] FOLLOWING HOWEVER HAS NO BEDS ON DEMENTIA UNIT, REFERRAL EXPANDED THROUGHOUT [facility], CM WILL CONT TO FOLLOW FOR BED OFFERS.
[2023-12-14] MEDS: hydroCHLOROthiazide 12.5 MG TABLET PO (09:38)
[2023-12-14] MEDS: Cholecalciferol (Vitamin D3) 25 MCG TABLET PO (09:38)
[2023-12-14] MEDS: FLUoxetine HCl 20 MG CAPSULE PO (09:38)
[2023-12-14] MEDS: amLODIPine Besylate 5 MG TABLET PO (09:38)
[2023-12-14] MEDS: Aspirin Enteric Coated 81 MG TABLET.DR PO (09:38)
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
[2023-12-14 15:57] VITALS: BP 133/71; PULSE 77; RESP 18; TEMP 37; O2SAT 95
[2023-12-14 20:00] VITALS: BP 134/88; PULSE 78; RESP 18; TEMP 36.7; O2SAT 95
[2023-12-14] MEDS: Atorvastatin Calcium 20 MG TABLET PO (21:06)
[2023-12-14] MEDS: Montelukast Sodium 10 MG TABLET PO (21:06)
[2023-12-14] MEDS: traZODone HCL 50 MG TABLET PO (21:06)
[2023-12-14] MEDS: Enoxaparin Sodium 40 MG/0.4 ML SYRINGE SUBCUT (21:07)
[2023-12-15 04:00] VITALS: BP 132/61; PULSE 70; RESP 18; TEMP 36.2; O2SAT 96
[2023-12-15] MEDS: Fluticasone/Umeclidinium/Vilanterol 100/62.5/25 BLST.W.DEV 1 PUFF INHALE (07:51)
[2023-12-15 07:52] VITALS: PULSE 70; RESP 18; O2SAT 96
[2023-12-15 08:00] VITALS: BP 130/78; PULSE 78; RESP 18; TEMP 36.4; O2SAT 97
[2023-12-15] MEDS: FLUoxetine HCl 20 MG CAPSULE PO (09:23)
[2023-12-15] MEDS: Aspirin Enteric Coated 81 MG TABLET.DR PO (09:23)
[2023-12-15] MEDS: hydroCHLOROthiazide 12.5 MG TABLET PO (09:23)
[2023-12-15] MEDS: Cholecalciferol (Vitamin D3) 25 MCG TABLET PO (09:23)
[2023-12-15] MEDS: amLODIPine Besylate 5 MG TABLET PO (09:23)
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
[2023-12-15 12:01] LABS: Glucose, Whole Blood 142 mg/dL (60-115)
[2023-12-15] MEDS: Gabapentin 100 MG CAPSULE PO (12:15)
[2023-12-15 16:00] VITALS: BP 138/63; PULSE 63; RESP 63; TEMP 36.7; O2SAT 98
[2023-12-15 19:58] VITALS: BP 145/65; PULSE 67; RESP 20; TEMP 36.4; O2SAT 97
[2023-12-15] MEDS: Acetaminophen 325 MG TABLET 650 MG PO (22:27)
[2023-12-15] MEDS: Enoxaparin Sodium 40 MG/0.4 ML SYRINGE SUBCUT (22:27)
[2023-12-15] MEDS: Montelukast Sodium 10 MG TABLET PO (22:27)
[2023-12-15] MEDS: traZODone HCL 50 MG TABLET PO (22:27)
[2023-12-15] MEDS: Atorvastatin Calcium 20 MG TABLET PO (22:27)
[2023-12-15 23:37] VITALS: BP 125/56; PULSE 70; RESP 20; TEMP 36.8; O2SAT 96
[2023-12-16 03:42] VITALS: BP 120/57; PULSE 68; RESP 20; TEMP 36.5; O2SAT 98
[2023-12-16 07:48] VITALS: BP 125/80; PULSE 66; RESP 19; TEMP 36.3; O2SAT 96
[2023-12-16] MEDS: Aspirin Enteric Coated 81 MG TABLET.DR PO (09:21)
[2023-12-16] MEDS: amLODIPine Besylate 5 MG TABLET PO (09:21)
[2023-12-16] MEDS: Gabapentin 100 MG CAPSULE PO (09:21)
[2023-12-16] MEDS: hydroCHLOROthiazide 12.5 MG TABLET PO (09:21)
[2023-12-16] MEDS: FLUoxetine HCl 20 MG CAPSULE PO (09:21)
[2023-12-16] MEDS: Cholecalciferol (Vitamin D3) 25 MCG TABLET PO (09:22)
--- NOTE | 2023-12-16 10:24 | MHC.CM.PN ---
EMR REVIEWED, PT REMAINS MEDICALLY CLEARED FOR DC TO LTC, CM STILL AWAITING BED OFFER, [facility] FOLLOWING HOWEVER DO NOT CURRENTLY HAVE A BED, CM HAS REACHED OUT [facility] TO SEE IF THEY WOULD DO A ONE TIME CONTRACT IT IS AN ALL MALE DEMENTIA FACILITY, CM WILL CONT TO FOLLOW REFERRALS AND DC NEEDS.
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
[2023-12-16 15:33] VITALS: BP 117/65; PULSE 50; RESP 18; TEMP 36; O2SAT 97
[2023-12-16 19:29] VITALS: BP 119/60; PULSE 64; RESP 20; TEMP 37; O2SAT 96
[2023-12-16] MEDS: Atorvastatin Calcium 20 MG TABLET PO (20:05)
[2023-12-16] MEDS: Montelukast Sodium 10 MG TABLET PO (20:05)
[2023-12-16] MEDS: traZODone HCL 50 MG TABLET PO (20:05)
[2023-12-16] MEDS: Enoxaparin Sodium 40 MG/0.4 ML SYRINGE SUBCUT (20:05)
[2023-12-17 04:00] VITALS: BP 136/69; PULSE 76; RESP 18; TEMP 36.8; O2SAT 96
[2023-12-17 08:00] VITALS: BP 133/62; PULSE 72; RESP 18; TEMP 36.1; O2SAT 95
[2023-12-17] MEDS: Gabapentin 100 MG CAPSULE PO (08:27)
[2023-12-17] MEDS: Aspirin Enteric Coated 81 MG TABLET.DR PO (08:27)
[2023-12-17] MEDS: amLODIPine Besylate 5 MG TABLET PO (08:27)
[2023-12-17] MEDS: hydroCHLOROthiazide 12.5 MG TABLET PO (08:27)
[2023-12-17] MEDS: Cholecalciferol (Vitamin D3) 25 MCG TABLET PO (08:27)
[2023-12-17] MEDS: FLUoxetine HCl 20 MG CAPSULE PO (08:27)
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
[2023-12-17 15:53] VITALS: BP 134/60; PULSE 68; RESP 20; TEMP 36.3; O2SAT 98
[2023-12-17] MEDS: traZODone HCL 50 MG TABLET PO (21:37)
[2023-12-17] MEDS: Montelukast Sodium 10 MG TABLET PO (21:37)
[2023-12-17] MEDS: Enoxaparin Sodium 40 MG/0.4 ML SYRINGE SUBCUT (21:37)
[2023-12-17] MEDS: Atorvastatin Calcium 20 MG TABLET PO (21:37)
[2023-12-17 23:44] VITALS: BP 145/66; PULSE 74; RESP 18; TEMP 36.2; O2SAT 97
[2023-12-18 03:34] VITALS: BP 115/66; PULSE 64; RESP 18; TEMP 36.4; O2SAT 96
[2023-12-18] MEDS: Fluticasone/Umeclidinium/Vilanterol 100/62.5/25 BLST.W.DEV 1 PUFF INHALE (07:15)
[2023-12-18 07:16] VITALS: PULSE 64; RESP 18; O2SAT 96
[2023-12-18 07:34] VITALS: BP 127/60; PULSE 64; RESP 18; TEMP 36.3; O2SAT 100
[2023-12-18] MEDS: amLODIPine Besylate 5 MG TABLET PO (09:52)
[2023-12-18] MEDS: FLUoxetine HCl 20 MG CAPSULE PO (09:52)
[2023-12-18] MEDS: hydroCHLOROthiazide 12.5 MG TABLET PO (09:52)
[2023-12-18] MEDS: Gabapentin 100 MG CAPSULE PO (09:52)
[2023-12-18] MEDS: Aspirin Enteric Coated 81 MG TABLET.DR PO (09:52)
[2023-12-18] MEDS: Cholecalciferol (Vitamin D3) 25 MCG TABLET PO (09:52)
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
[2023-12-18 15:27] VITALS: BP 126/60; PULSE 56; RESP 18; TEMP 36.2; O2SAT 94
[2023-12-18 20:00] VITALS: BP 130/68; PULSE 61; RESP 20; TEMP 36.5; O2SAT 96
[2023-12-18] MEDS: Montelukast Sodium 10 MG TABLET PO (20:42)
[2023-12-18] MEDS: traZODone HCL 50 MG TABLET PO (20:42)
[2023-12-18] MEDS: Atorvastatin Calcium 20 MG TABLET PO (20:43)
[2023-12-18] MEDS: Enoxaparin Sodium 40 MG/0.4 ML SYRINGE SUBCUT (20:43)
[2023-12-19 03:33] VITALS: BP 123/58; PULSE 65; RESP 20; TEMP 36.4; O2SAT 96
[2023-12-19 06:53] LABS: Hematocrit 41.4 % (42.0-52.0); Hemoglobin 14.6 g/dl (14.0-18.0); Mean Corpuscular HGB Conc 35.3 g/dl (31.0-36.0); Mean Corpuscular Hemoglobin 30.1 pg (27.0-33.0); Mean Corpuscular Volume 85.4 fL (80.0-98.0); Mean Platelet Volume 10.4 fL (9.4-12.4); Platelet Count 310 X10*3/uL (160-400); Red Blood Count 4.85 X10*6/uL (4.60-5.80); White Blood Count 10.1 X10*3/uL (4.8-10.8)
[2023-12-19 07:00] LABS: Anion Gap 13 (12-20); Blood Urea Nitrogen 16 mg/dL (9-16); Calcium 9.2 mg/dL (8.4-10.2); Carbon Dioxide 27 mmol/L (22-29); Chloride 98 mmol/L (96-108); Creatinine Clr Calc Pharmacy 64.8; Estimated Glomerular Filt Rate > 60; Glucose Random 100 mg/dL (60-115); Potassium 3.4 mmol/L (3.3-5.1); Sodium 135 mmol/L (135-145)
[2023-12-19 07:27] VITALS: BP 129/61; PULSE 65; RESP 20; TEMP 36.4; O2SAT 96
[2023-12-19 07:31] VITALS: PULSE 72; RESP 16; O2SAT 96
[2023-12-19] MEDS: Fluticasone/Umeclidinium/Vilanterol 100/62.5/25 BLST.W.DEV 1 PUFF INHALE (07:31)
[2023-12-19] MEDS: Aspirin Enteric Coated 81 MG TABLET.DR PO (07:52)
[2023-12-19] MEDS: Cholecalciferol (Vitamin D3) 25 MCG TABLET PO (07:52)
[2023-12-19] MEDS: hydroCHLOROthiazide 12.5 MG TABLET PO (07:52)
[2023-12-19] MEDS: amLODIPine Besylate 5 MG TABLET PO (07:52)
[2023-12-19] MEDS: Gabapentin 100 MG CAPSULE PO (07:52)
[2023-12-19] MEDS: FLUoxetine HCl 20 MG CAPSULE PO (07:52)
--- NOTE | 2023-12-19 08:41 | MHC.CM.PN ---
EMR REVIEWED, REFERRAL REVIEWED, [facility] DOES NOT HAVE AVAILABLE BED AND NO ANSWER ON POSSIBILITY OF ONE TIME CONTRACT, [facility] WILL LET CM KNOW WHEN THEY HAVE A BED AND [facility] FOLLOWING, CM WILL UPDATE REFERRAL AND FOLLOW DC NEEDS.
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
[2023-12-19 16:00] VITALS: BP 146/64; PULSE 63; RESP 18; TEMP 36.4; O2SAT 97
[2023-12-19 19:39] VITALS: BP 143/58; PULSE 67; RESP 20; TEMP 36.3; O2SAT 97
[2023-12-19] MEDS: Enoxaparin Sodium 40 MG/0.4 ML SYRINGE SUBCUT (20:31)
[2023-12-19] MEDS: Montelukast Sodium 10 MG TABLET PO (20:31)
[2023-12-19] MEDS: traZODone HCL 50 MG TABLET PO (20:31)
[2023-12-19] MEDS: Atorvastatin Calcium 20 MG TABLET PO (20:31)
[2023-12-20 03:41] VITALS: BP 128/57; PULSE 73; RESP 18; TEMP 36.4; O2SAT 97
[2023-12-20 07:15] VITALS: BP 141/66; PULSE 75; RESP 18; TEMP 36.3; O2SAT 94
[2023-12-20] MEDS: Fluticasone/Umeclidinium/Vilanterol 100/62.5/25 BLST.W.DEV 1 PUFF INHALE (07:31)
[2023-12-20 07:32] VITALS: PULSE 75; RESP 18; O2SAT 94
[2023-12-20] MEDS: hydroCHLOROthiazide 12.5 MG TABLET PO (08:27)
[2023-12-20] MEDS: Cholecalciferol (Vitamin D3) 25 MCG TABLET PO (08:27)
[2023-12-20] MEDS: Aspirin Enteric Coated 81 MG TABLET.DR PO (08:27)
[2023-12-20] MEDS: FLUoxetine HCl 20 MG CAPSULE PO (08:27)
[2023-12-20] MEDS: amLODIPine Besylate 5 MG TABLET PO (08:27)
[2023-12-20] MEDS: Gabapentin 100 MG CAPSULE PO (08:27)
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
[2023-12-20] MEDS: Acetaminophen 325 MG TABLET 650 MG PO ×2 (13:26→21:06)
[2023-12-20 15:20] VITALS: BP 120/64; PULSE 65; RESP 20; TEMP 36.7; O2SAT 94
[2023-12-20 20:00] VITALS: BP 126/56; PULSE 115; RESP 18; TEMP 36.6; O2SAT 90
[2023-12-20] MEDS: traZODone HCL 50 MG TABLET PO (21:07)
[2023-12-20] MEDS: Enoxaparin Sodium 40 MG/0.4 ML SYRINGE SUBCUT (21:07)
[2023-12-20] MEDS: Montelukast Sodium 10 MG TABLET PO (21:07)
[2023-12-20] MEDS: Atorvastatin Calcium 20 MG TABLET PO (21:07)
[2023-12-21] MEDS: Acetaminophen 325 MG TABLET 650 MG PO ×4 (03:08→23:13)
[2023-12-21] MEDS: Artificial Tears 15 ML DROPS 2 DROP EYE-BOTH (03:08)
[2023-12-21 03:52] VITALS: BP 119/59; PULSE 89; RESP 18; TEMP 36.5; O2SAT 98
[2023-12-21 07:11] VITALS: BP 124/67; PULSE 78; RESP 18; TEMP 36.5; O2SAT 97
[2023-12-21 07:28] VITALS: PULSE 78; RESP 18; O2SAT 95
[2023-12-21] MEDS: Fluticasone/Umeclidinium/Vilanterol 100/62.5/25 BLST.W.DEV 1 PUFF INHALE (07:28)
[2023-12-21] MEDS: Aspirin Enteric Coated 81 MG TABLET.DR PO (08:05)
[2023-12-21] MEDS: amLODIPine Besylate 5 MG TABLET PO (08:06)
[2023-12-21] MEDS: Cholecalciferol (Vitamin D3) 25 MCG TABLET PO (08:06)
[2023-12-21] MEDS: FLUoxetine HCl 20 MG CAPSULE PO (08:06)
[2023-12-21] MEDS: hydroCHLOROthiazide 12.5 MG TABLET PO (08:06)
[2023-12-21] MEDS: Gabapentin 100 MG CAPSULE PO (08:06)
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
--- NOTE | 2023-12-21 13:51 | MHC.CM.PN ---
EMR reviewed and per MD rounds, pt is medically cleared for discharge but unable to due to awaiting LTC placement on a dementia unit, 175 referrals have been placed, no current bed offers.
[2023-12-21 15:06] VITALS: BP 114/64; PULSE 61; RESP 20; TEMP 36.4; O2SAT 98
[2023-12-21 20:00] VITALS: BP 145/70; PULSE 87; RESP 18; TEMP 36.6; O2SAT 98
[2023-12-21] MEDS: traMADoL HCL 50 MG TABLET 25 MG PO (20:49)
[2023-12-21] MEDS: traZODone HCL 50 MG TABLET PO (20:50)
[2023-12-21] MEDS: Montelukast Sodium 10 MG TABLET PO (20:50)
[2023-12-21] MEDS: Atorvastatin Calcium 20 MG TABLET PO (20:50)
[2023-12-21] MEDS: Enoxaparin Sodium 40 MG/0.4 ML SYRINGE SUBCUT (20:50)
[2023-12-21] MEDS: Melatonin 3 MG TABLET 6 MG PO (23:13)
[2023-12-22] MEDS: oxyCODONE HCl Immed Release 5 MG TABLET PO (00:50)
[2023-12-22 04:00] VITALS: BP 116/57; PULSE 106; RESP 18; TEMP 36.1; O2SAT 97
[2023-12-22] MEDS: traMADoL HCL 50 MG TABLET 25 MG PO ×3 (05:05→20:45)
[2023-12-22 07:27] VITALS: BP 107/57; PULSE 73; RESP 18; TEMP 36.6; O2SAT 97
[2023-12-22] MEDS: Fluticasone/Umeclidinium/Vilanterol 100/62.5/25 BLST.W.DEV 1 PUFF INHALE (07:41)
[2023-12-22 07:43] VITALS: PULSE 73; RESP 18; O2SAT 97
[2023-12-22] MEDS: FLUoxetine HCl 20 MG CAPSULE PO (08:33)
[2023-12-22] MEDS: Acetaminophen 325 MG TABLET 650 MG PO (08:33)
[2023-12-22] MEDS: Cholecalciferol (Vitamin D3) 25 MCG TABLET PO (08:33)
[2023-12-22] MEDS: Aspirin Enteric Coated 81 MG TABLET.DR PO (08:33)
[2023-12-22] MEDS: hydroCHLOROthiazide 12.5 MG TABLET PO (08:33)
[2023-12-22] MEDS: Gabapentin 100 MG CAPSULE PO (08:33)
[2023-12-22] MEDS: amLODIPine Besylate 5 MG TABLET PO (08:34)
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
[2023-12-22 15:27] VITALS: BP 118/60; PULSE 63; RESP 18; TEMP 36.3; O2SAT 99
[2023-12-22 18:05] LABS: Uric Acid 6.6 mg/dL (3.4-7.0)
[2023-12-22 20:00] VITALS: BP 139/65; PULSE 68; RESP 18; TEMP 36.3; O2SAT 96
[2023-12-22] MEDS: Atorvastatin Calcium 20 MG TABLET PO (20:46)
[2023-12-22] MEDS: Enoxaparin Sodium 40 MG/0.4 ML SYRINGE SUBCUT (20:46)
[2023-12-22] MEDS: Montelukast Sodium 10 MG TABLET PO (20:46)
[2023-12-22] MEDS: traZODone HCL 50 MG TABLET PO (20:46)
[2023-12-22 23:50] VITALS: BP 128/61; PULSE 79; RESP 17; TEMP 36.4; O2SAT 94
[2023-12-23] MEDS: Melatonin 3 MG TABLET 6 MG PO (00:28)
[2023-12-23] MEDS: Acetaminophen 325 MG TABLET 650 MG PO ×2 (00:28→15:09)
[2023-12-23 04:00] VITALS: BP 132/60; PULSE 58; RESP 16; TEMP 36.8; O2SAT 99
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
[2023-12-23 07:27] VITALS: BP 119/56; PULSE 56; RESP 18; TEMP 36.2; O2SAT 96
[2023-12-23] MEDS: Aspirin Enteric Coated 81 MG TABLET.DR PO (09:28)
[2023-12-23] MEDS: Gabapentin 100 MG CAPSULE PO (09:28)
[2023-12-23] MEDS: amLODIPine Besylate 5 MG TABLET PO (09:28)
[2023-12-23] MEDS: FLUoxetine HCl 20 MG CAPSULE PO (09:28)
[2023-12-23] MEDS: hydroCHLOROthiazide 12.5 MG TABLET PO (09:28)
[2023-12-23] MEDS: Cholecalciferol (Vitamin D3) 25 MCG TABLET PO (09:29)
[2023-12-23 09:44] VITALS: BP 119/56
[2023-12-23] MEDS: traMADoL HCL 50 MG TABLET 25 MG PO ×2 (14:04→20:01)
[2023-12-23 15:11] VITALS: BP 123/59; PULSE 70; RESP 18; TEMP 36.7; O2SAT 96
[2023-12-23 19:22] VITALS: BP 143/63; PULSE 70; RESP 18; TEMP 36.9; O2SAT 96
[2023-12-23] MEDS: Montelukast Sodium 10 MG TABLET PO (20:01)
[2023-12-23] MEDS: Atorvastatin Calcium 20 MG TABLET PO (20:01)
[2023-12-23] MEDS: Enoxaparin Sodium 40 MG/0.4 ML SYRINGE SUBCUT (20:01)
[2023-12-23] MEDS: traZODone HCL 50 MG TABLET PO (20:01)
[2023-12-24] VITALS (7 sets, daily range): BP systolic 125–165; BP diastolic 59–72; PULSE 60–83; RESP 18–20; TEMP 36.4–36.9; O2SAT 93–97
[2023-12-24] MEDS: traMADoL HCL 50 MG TABLET 25 MG PO ×2 (03:15→21:32)
[2023-12-24] MEDS: Fluticasone/Umeclidinium/Vilanterol 100/62.5/25 BLST.W.DEV 1 PUFF INHALE (07:59)
[2023-12-24] MEDS: Acetaminophen 325 MG TABLET 650 MG PO (09:38)
[2023-12-24] MEDS: Aspirin Enteric Coated 81 MG TABLET.DR PO (09:39)
[2023-12-24] MEDS: hydroCHLOROthiazide 12.5 MG TABLET PO (09:39)
[2023-12-24] MEDS: Gabapentin 100 MG CAPSULE PO (09:40)
[2023-12-24] MEDS: Cholecalciferol (Vitamin D3) 25 MCG TABLET PO (09:40)
[2023-12-24] MEDS: amLODIPine Besylate 5 MG TABLET PO (09:40)
[2023-12-24] MEDS: FLUoxetine HCl 20 MG CAPSULE PO (09:40)
[2023-12-24] MEDS: Enoxaparin Sodium 40 MG/0.4 ML SYRINGE SUBCUT (21:32)
[2023-12-24] MEDS: traZODone HCL 50 MG TABLET PO (21:33)
[2023-12-24] MEDS: Montelukast Sodium 10 MG TABLET PO (21:33)
[2023-12-24] MEDS: Atorvastatin Calcium 20 MG TABLET PO (21:33)
[2023-12-25 04:00] VITALS: BP 146/68; PULSE 80; RESP 20; TEMP 36.7; O2SAT 96
[2023-12-25] MEDS: traMADoL HCL 50 MG TABLET 25 MG PO ×3 (04:04→16:51)
[2023-12-25 08:00] VITALS: BP 117/77; PULSE 75; RESP 20; TEMP 36.9; O2SAT 97
[2023-12-25 08:04] VITALS: BP 117/77
[2023-12-25] MEDS: Cholecalciferol (Vitamin D3) 25 MCG TABLET PO (08:04)
[2023-12-25] MEDS: amLODIPine Besylate 5 MG TABLET PO (08:04)
[2023-12-25] MEDS: Aspirin Enteric Coated 81 MG TABLET.DR PO (08:04)
[2023-12-25] MEDS: Gabapentin 100 MG CAPSULE PO (08:04)
[2023-12-25] MEDS: hydroCHLOROthiazide 12.5 MG TABLET PO (08:04)
[2023-12-25] MEDS: FLUoxetine HCl 20 MG CAPSULE PO (08:17)
--- NOTE | 2023-12-25 11:23 | P.PNIM_ITS ---
Subjective Subjective Date of Service: 12/25/23 Interval History: No new issues Physical Exam 2 Vital Signs: Vital Signs: Last Vital Signs Temp 98.5 F 12/25/23 08:00 Pulse 75 12/25/23 08:00 Resp 20 12/25/23 08:00 BP 117/77 12/25/23 08:04 Pulse Ox 97 12/25/23 08:00 O2 Del Method Room Air 12/25/23 08:00 O2 Flow Rate 3 12/22/23 20:00 BMI result Body Mass Index 28.0 Const: Other: Constitutional : resting comfortably Cardiovascular : no JVP, no lower extremity edema Respiratory : bilateral chest movement, not in resp distress Gastrointestinal: soft, lax, Non tender Skin : Warm, Dry MSK: swelling int he left knee, no redness, no tenderness Neurological : Alert & oriented to self , No focal deficit Objective Data Active Medications Acetaminophen (Acetaminophen 325 Mg Tablet) 650 mg PO Q6H PRN PRN Reason: Pain, Mild (Pain Scale 1-3), fever or headache Last Admin: 12/24/23 09:38 Dose: 650 mg Documented By: LATA Albuterol Sulfate (Albuterol Sulfate 90 Mcg 8 Gm Inhaler) 2 puff INHALE RQ6H PRN PRN Reason: sob Amlodipine Besylate (Amlodipine Besylate 5 Mg Tablet) 5 mg PO DAILY [facility]; Protocol Last Admin: 12/25/23 08:04 Dose: 5 mg Documented By: MASTER Artificial Tears (Artificial Tears 15 Ml Drops) 2 drop EYE-BOTH Q4H PRN PRN Reason: Dry Eyes Last Admin: 12/21/23 03:08 Dose: 2 drop Documented By: YOMI Aspirin (Aspirin Enteric Coated 81 Mg Tablet.Dr) 81 mg PO DAILY [facility] Last Admin: 12/25/23 08:04 Dose: 81 mg Documented By: MASTER Atorvastatin Calcium (Atorvastatin Calcium 20 Mg Tablet) 20 mg PO BEDTIME [facility] Last Admin: 12/24/23 21:33 Dose: 20 mg Documented By: CMAACHO Calcium Carbonate (Calcium Carbonate 750 Mg Tab.Chew) 750 mg PO Q4H PRN PRN Reason: Heartburn Enoxaparin Sodium (Enoxaparin Sodium 40 Mg/0.4 Ml Syringe) 40 mg SUBCUT Q24H [facility] Last Admin: 12/24/23 21:32 Dose: 40 mg Documented By: CAMACHO Fluoxetine HCl (Fluoxetine Hcl 20 Mg Capsule) 20 mg PO DAILY [facility] Last Admin: 12/25/23 08:17 Dose: 20 mg Documented By: MASTER Fluticasone/Umeclidinium/Vilanterol (Fluticasone/Umeclidinium/Vilanterol 100/62.5/25 Blst.W.Dev) 1 puff INHALE RDAILY [facility] Last Admin: 12/24/23 07:59 Dose: 1 puff Documented By: ADELA Gabapentin (Gabapentin 100 Mg Capsule) 100 mg PO DAILY [facility] Last Admin: 12/25/23 08:04 Dose: 100 mg Documented By: MASTER Hydrochlorothiazide (Hydrochlorothiazide 12.5 Mg Tablet) 12.5 mg PO DAILY [facility]; Protocol Last Admin: 12/25/23 08:04 Dose: 12.5 mg Documented By: MASTER Magnesium Hydroxide (Milk Of Magnesia 30 Ml Oral.Susp) 30 ml PO DAILY PRN PRN Reason: Constipation Last Admin: 12/08/23 08:25 Dose: 30 ml Documented By: AUDI Melatonin (Melatonin 3 Mg Tablet) 6 mg PO BEDTIME PRN PRN Reason: Insomnia Last Admin: 12/23/23 00:28 Dose: 6 mg Documented By: GEREMIAS Comments: for sleep Montelukast Sodium (Montelukast Sodium 10 Mg Tablet) 10 mg PO BEDTIME [facility] Last Admin: 12/24/23 21:33 Dose: 10 mg Documented By: CAMACHO Tramadol HCl (Tramadol Hcl 50 Mg Tablet) 25 mg PO Q6H PRN PRN Reason: Pain, Severe (Pain Scale 7-10) Last Admin: 12/25/23 10:45 Dose: 25 mg Documented By: MASTER Trazodone HCl (Trazodone Hcl 50 Mg Tablet) 50 mg PO BEDTIME [facility] Last Admin: 12/24/23 21:33 Dose: 50 mg Documented By: CAMACHO Vitamin D (Cholecalciferol (Vitamin D3) 25 Mcg Tablet) 25 mcg PO DAILY [facility] Last Admin: 12/25/23 08:04 Dose: 25 mcg Documented By: MASTER Labs 12/19/23 06:07 12/19/23 06:07 Assessment and Plan (1) Left knee pain: Status: Acute (2) Osteoarthritis of left knee: Status: Acute Plan 83M PMH copd, htn, hld, dementia unspecified, prostate ca, [facility] inappropriately interaction with another female resident. remains stable, no new issues reported Fall , while inpt, no injuries, CT Head unremarkable (outpatient ENT follow up for chronic 1.5cm pedunculated polypoid soft tissue ) Unspecified dementia, stable, needs placement -Prozac per Psych eval for sexual inappropriateness. 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 No acute fracture or dislocation is seen. 2. Persistent left tibiofemoral joint osteoarthritis, most severe in the medial compartment. Interval appearance of genu varus deformity. 3. Left suprapatellar fat pad shows bulging increase in density. -pain likely from above -tylenol and tramadol for pain -ortho recommends conservative managament, PT -tramadol and tylenol fo pain dvt prophylaxis - lovenox dnr/dni reason for continued hospitalization:dispo planning periodic lab check 12/18, bmp/cbc--unremarkable Quality Stroke Does the patient have a stroke diagnosis?: No VTE Prior VTE?: No VTE Risk Level:: Medical - moderate - high VTE Device Contraindication: Treatment Not Indicated VTE Drug Contraindication: N/A - Med Ordered
[2023-12-25] MEDS: Fluticasone/Umeclidinium/Vilanterol 100/62.5/25 BLST.W.DEV 1 PUFF INHALE (11:49)
[2023-12-25 11:50] VITALS: PULSE 81; RESP 18; O2SAT 96
[2023-12-25 16:00] VITALS: BP 118/57; PULSE 70; RESP 16; TEMP 36.3; O2SAT 96
[2023-12-25 19:41] VITALS: BP 129/68; PULSE 78; RESP 18; TEMP 36.7; O2SAT 96
[2023-12-25] MEDS: Acetaminophen 325 MG TABLET 650 MG PO (20:50)
[2023-12-25] MEDS: Enoxaparin Sodium 40 MG/0.4 ML SYRINGE SUBCUT (20:50)
[2023-12-25] MEDS: Montelukast Sodium 10 MG TABLET PO (20:51)
[2023-12-25] MEDS: Atorvastatin Calcium 20 MG TABLET PO (20:51)
[2023-12-25] MEDS: traZODone HCL 50 MG TABLET PO (20:51)
[2023-12-26 04:00] VITALS: BP 102/58; PULSE 68; RESP 18; TEMP 36.4; O2SAT 96
[2023-12-26] MEDS: Fluticasone/Umeclidinium/Vilanterol 100/62.5/25 BLST.W.DEV 1 PUFF INHALE (07:40)
[2023-12-26 07:41] VITALS: PULSE 68; RESP 18; O2SAT 95
[2023-12-26 08:00] VITALS: BP 128/60; PULSE 73; RESP 20; TEMP 36.9; O2SAT 97
[2023-12-26] MEDS: Gabapentin 100 MG CAPSULE PO (08:15)
[2023-12-26] MEDS: hydroCHLOROthiazide 12.5 MG TABLET PO (08:15)
[2023-12-26] MEDS: Cholecalciferol (Vitamin D3) 25 MCG TABLET PO (08:15)
[2023-12-26] MEDS: Aspirin Enteric Coated 81 MG TABLET.DR PO (08:15)
[2023-12-26] MEDS: FLUoxetine HCl 20 MG CAPSULE PO (08:15)
[2023-12-26] MEDS: amLODIPine Besylate 5 MG TABLET PO (08:15)
--- NOTE | 2023-12-26 12:05 | HO.PM.IMPN ---
Subjective Subjective Date of Service: 12/26/23 Interval History: No new issues still with pain in the knee Physical Exam Vital Signs: Vital Signs: Last Vital Signs Temp 98.5 F 12/26/23 08:00 Pulse 73 12/26/23 08:00 Resp 20 12/26/23 08:00 BP 128/60 12/26/23 08:00 Pulse Ox 97 12/26/23 08:00 O2 Del Method Room Air 12/26/23 08:00 O2 Flow Rate 3 12/22/23 20:00 BMI result Body Mass Index 28.0 Objective Data Active Medications Acetaminophen (Acetaminophen 325 Mg Tablet) 650 mg PO Q6H PRN PRN Reason: Pain, Mild (Pain Scale 1-3), fever or headache Last Admin: 12/25/23 20:50 Dose: 650 mg Documented By: LUIS Albuterol Sulfate (Albuterol Sulfate 90 Mcg 8 Gm Inhaler) 2 puff INHALE RQ6H PRN PRN Reason: sob Amlodipine Besylate (Amlodipine Besylate 5 Mg Tablet) 5 mg PO DAILY [facility]; Protocol Last Admin: 12/26/23 08:15 Dose: 5 mg Documented By: LOUIS Artificial Tears (Artificial Tears 15 Ml Drops) 2 drop EYE-BOTH Q4H PRN PRN Reason: Dry Eyes Last Admin: 12/21/23 03:08 Dose: 2 drop Documented By: YOMI Aspirin (Aspirin Enteric Coated 81 Mg Tablet.Dr) 81 mg PO DAILY [facility] Last Admin: 12/26/23 08:15 Dose: 81 mg Documented By: LOUIS Atorvastatin Calcium (Atorvastatin Calcium 20 Mg Tablet) 20 mg PO BEDTIME [facility] Last Admin: 12/25/23 20:51 Dose: 20 mg Documented By: LUIS Calcium Carbonate (Calcium Carbonate 750 Mg Tab.Chew) 750 mg PO Q4H PRN PRN Reason: Heartburn Enoxaparin Sodium (Enoxaparin Sodium 40 Mg/0.4 Ml Syringe) 40 mg SUBCUT Q24H [facility] Last Admin: 12/25/23 20:50 Dose: 40 mg Documented By: LUIS Fluoxetine HCl (Fluoxetine Hcl 20 Mg Capsule) 20 mg PO DAILY [facility] Last Admin: 12/26/23 08:15 Dose: 20 mg Documented By: LOUIS Fluticasone/Umeclidinium/Vilanterol (Fluticasone/Umeclidinium/Vilanterol 100/62.5/25 Blst.W.Dev) 1 puff INHALE RDAILY [facility] Last Admin: 12/26/23 07:40 Dose: 1 puff Documented By: KAYLEIGH Gabapentin (Gabapentin 100 Mg Capsule) 100 mg PO DAILY [facility] Last Admin: 12/26/23 08:15 Dose: 100 mg Documented By: LOUIS Hydrochlorothiazide (Hydrochlorothiazide 12.5 Mg Tablet) 12.5 mg PO DAILY [facility]; Protocol Last Admin: 12/26/23 08:15 Dose: 12.5 mg Documented By: LOUIS Magnesium Hydroxide (Milk Of Magnesia 30 Ml Oral.Susp) 30 ml PO DAILY PRN PRN Reason: Constipation Last Admin: 12/08/23 08:25 Dose: 30 ml Documented By: AUDI Melatonin (Melatonin 3 Mg Tablet) 6 mg PO BEDTIME PRN PRN Reason: Insomnia Last Admin: 12/23/23 00:28 Dose: 6 mg Documented By: GEREMIAS Comments: for sleep Montelukast Sodium (Montelukast Sodium 10 Mg Tablet) 10 mg PO BEDTIME [facility] Last Admin: 12/25/23 20:51 Dose: 10 mg Documented By: LUIS Tramadol HCl (Tramadol Hcl 50 Mg Tablet) 50 mg PO Q6H PRN PRN Reason: Pain, Severe (Pain Scale 7-10) Trazodone HCl (Trazodone Hcl 50 Mg Tablet) 50 mg PO BEDTIME [facility] Last Admin: 12/25/23 20:51 Dose: 50 mg Documented By: LUIS Vitamin D (Cholecalciferol (Vitamin D3) 25 Mcg Tablet) 25 mcg PO DAILY [facility] Last Admin: 12/26/23 08:15 Dose: 25 mcg Documented By: LOUIS Labs 12/19/23 06:07 12/19/23 06:07 Assessment and Plan (1) Left knee pain: Status: Acute (2) Osteoarthritis of left knee: Status: Acute Plan 83M PMH copd, htn, hld, dementia unspecified, prostate ca, sent in from assisted after inappropriately interaction with another female resident. remains stable, no new issues reported Fall , while inpt, no injuries, CT Head unremarkable (outpatient ENT follow up for chronic 1.5cm pedunculated polypoid soft tissue ) Unspecified dementia, stable, needs placement -Prozac per Psych eval for sexual inappropriateness. 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 No acute fracture or dislocation is seen. 2. Persistent left tibiofemoral joint osteoarthritis, most severe in the medial compartment. Interval appearance of genu varus deformity. 3. Left suprapatellar fat pad shows bulging increase in density. -pain likely from above -tylenol and tramadol for pain -ortho recommends conservative managament, PT -tramadol and tylenol fo pain, topical med dvt prophylaxis - lovenox dnr/dni reason for continued hospitalization:dispo planning periodic lab check 12/18, bmp/cbc--unremarkable Quality Stroke Does the patient have a stroke diagnosis?: No VTE Prior VTE?: No VTE Risk Level:: Medical - moderate - high VTE Device Contraindication: Treatment Not Indicated VTE Drug Contraindication: N/A - Med Ordered
[2023-12-26 15:48] VITALS: BP 112/57; PULSE 68; RESP 16; TEMP 36.3; O2SAT 98
[2023-12-26 20:00] VITALS: BP 137/63; PULSE 58; RESP 18; TEMP 36.2; O2SAT 97
[2023-12-26] MEDS: traZODone HCL 50 MG TABLET PO (20:40)
[2023-12-26] MEDS: Montelukast Sodium 10 MG TABLET PO (20:40)
[2023-12-26] MEDS: Acetaminophen 325 MG TABLET 650 MG PO (20:40)
[2023-12-26] MEDS: Atorvastatin Calcium 20 MG TABLET PO (20:41)
[2023-12-26] MEDS: Enoxaparin Sodium 40 MG/0.4 ML SYRINGE SUBCUT (20:41)
[2023-12-27] MEDS: traMADoL HCL 50 MG TABLET PO ×4 (00:38→23:51)
[2023-12-27 04:00] VITALS: BP 145/62; PULSE 70; RESP 18; TEMP 36.3; O2SAT 94
[2023-12-27 07:34] VITALS: BP 127/60; PULSE 67; RESP 20; TEMP 36.7; O2SAT 96
[2023-12-27] MEDS: amLODIPine Besylate 5 MG TABLET PO (07:46)
[2023-12-27] MEDS: Aspirin Enteric Coated 81 MG TABLET.DR PO (07:46)
[2023-12-27] MEDS: hydroCHLOROthiazide 12.5 MG TABLET PO (07:46)
[2023-12-27] MEDS: Gabapentin 100 MG CAPSULE PO (07:47)
[2023-12-27] MEDS: Cholecalciferol (Vitamin D3) 25 MCG TABLET PO (07:47)
[2023-12-27] MEDS: FLUoxetine HCl 20 MG CAPSULE PO (07:47)
[2023-12-27] MEDS: Fluticasone/Umeclidinium/Vilanterol 100/62.5/25 BLST.W.DEV 1 PUFF INHALE (08:57)
[2023-12-27 08:58] VITALS: PULSE 68; RESP 20; O2SAT 97
[2023-12-27] MEDS: Acetaminophen 325 MG TABLET 650 MG PO (11:05)
[2023-12-27 15:38] VITALS: BP 117/58; PULSE 63; RESP 18; TEMP 37.2; O2SAT 97
--- NOTE | 2023-12-27 16:52 | HO.PM.IMPN ---
Subjective Subjective Date of Service: 12/27/23 Interval History: no new issues Review of Systems resting comfortably no new c/o. Physical Exam Vital Signs: Vital Signs: Last Vital Signs Temp 98.9 F 12/27/23 15:38 Pulse 63 12/27/23 15:38 Resp 18 12/27/23 15:38 BP 117/58 L 12/27/23 15:38 Pulse Ox 97 12/27/23 15:38 O2 Del Method Room Air 12/27/23 15:38 O2 Flow Rate 3 12/22/23 20:00 BMI result Body Mass Index 28.0 Appearance: Alert.? Oriented.? cvs: rrr, [id number] . res: clear to auscultation ,no rhonchii or wheezing abd: no rebound or guarding ,nt, bs present. ext pulses present , no cyanosis. neuro: axo3 , nonfocal. Objective Data Active Medications Acetaminophen (Acetaminophen 325 Mg Tablet) 650 mg PO Q6H PRN PRN Reason: Pain, Mild (Pain Scale 1-3), fever or headache Last Admin: 12/27/23 11:05 Dose: 650 mg Documented By: NURIS Albuterol Sulfate (Albuterol Sulfate 90 Mcg 8 Gm Inhaler) 2 puff INHALE RQ6H PRN PRN Reason: sob Amlodipine Besylate (Amlodipine Besylate 5 Mg Tablet) 5 mg PO DAILY [facility]; Protocol Last Admin: 12/27/23 07:46 Dose: 5 mg Documented By: NURIS Artificial Tears (Artificial Tears 15 Ml Drops) 2 drop EYE-BOTH Q4H PRN PRN Reason: Dry Eyes Last Admin: 12/21/23 03:08 Dose: 2 drop Documented By: YOMI Aspirin (Aspirin Enteric Coated 81 Mg Tablet.) 81 mg PO DAILY [facility] Last Admin: 12/27/23 07:46 Dose: 81 mg Documented By: NURIS Atorvastatin Calcium (Atorvastatin Calcium 20 Mg Tablet) 20 mg PO BEDTIME [facility] Last Admin: 12/26/23 20:41 Dose: 20 mg Documented By: DAMARIS Calcium Carbonate (Calcium Carbonate 750 Mg Tab.Chew) 750 mg PO Q4H PRN PRN Reason: Heartburn Enoxaparin Sodium (Enoxaparin Sodium 40 Mg/0.4 Ml Syringe) 40 mg SUBCUT Q24H [facility] Last Admin: 12/26/23 20:41 Dose: 40 mg Documented By: DAMARIS Fluoxetine HCl (Fluoxetine Hcl 20 Mg Capsule) 20 mg PO DAILY [facility] Last Admin: 12/27/23 07:47 Dose: 20 mg Documented By: NURIS Fluticasone/Umeclidinium/Vilanterol (Fluticasone/Umeclidinium/Vilanterol 100/62.5/25 Blst.W.Dev) 1 puff INHALE RDAILY [facility] Last Admin: 12/27/23 08:57 Dose: 1 puff Documented By: URSZULA Gabapentin (Gabapentin 100 Mg Capsule) 100 mg PO DAILY [facility] Last Admin: 12/27/23 07:47 Dose: 100 mg Documented By: NURIS Hydrochlorothiazide (Hydrochlorothiazide 12.5 Mg Tablet) 12.5 mg PO DAILY [facility]; Protocol Last Admin: 12/27/23 07:46 Dose: 12.5 mg Documented By: NURIS Magnesium Hydroxide (Milk Of Magnesia 30 Ml Oral.Susp) 30 ml PO DAILY PRN PRN Reason: Constipation Last Admin: 12/08/23 08:25 Dose: 30 ml Documented By: AUDI Melatonin (Melatonin 3 Mg Tablet) 6 mg PO BEDTIME PRN PRN Reason: Insomnia Last Admin: 12/23/23 00:28 Dose: 6 mg Documented By: GEREMIAS Comments: for sleep Montelukast Sodium (Montelukast Sodium 10 Mg Tablet) 10 mg PO BEDTIME [facility] Last Admin: 12/26/23 20:40 Dose: 10 mg Documented By: DAMARIS Tramadol HCl (Tramadol Hcl 50 Mg Tablet) 50 mg PO Q6H PRN PRN Reason: Pain, Severe (Pain Scale 7-10) Last Admin: 12/27/23 15:33 Dose: 50 mg Documented By: LOUIS Trazodone HCl (Trazodone Hcl 50 Mg Tablet) 50 mg PO BEDTIME [facility] Last Admin: 12/26/23 20:40 Dose: 50 mg Documented By: DAMARIS Vitamin D (Cholecalciferol (Vitamin D3) 25 Mcg Tablet) 25 mcg PO DAILY [facility] Last Admin: 12/27/23 07:47 Dose: 25 mcg Documented By: NURIS Labs 12/19/23 06:07 08/26/24 06:07 Assessment and Plan (1) Cognitive disorder: Status: Acute Assessment and Plan: 83M PMH copd, htn, hld, dementia unspecified, prostate ca, sent in from longterm after inappropriately interaction with another female resident. remains stable, no new issues reported Fall , while inpt, no injuries, CT Head unremarkable (outpatient ENT follow up for chronic 1.5cm pedunculated polypoid soft tissue ) Unspecified dementia, stable, needs placement -Prozac per Psych eval for sexual inappropriateness. 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 No acute fracture or dislocation is seen. 2. Persistent left tibiofemoral joint osteoarthritis, most severe in the medial compartment. Interval appearance of genu varus deformity. 3. Left suprapatellar fat pad shows bulging increase in density. -pain likely from above -tylenol and tramadol for pain -ortho recommends conservative managament, PT -tramadol and tylenol fo pain, topical med dvt prophylaxis - lovenox dnr/dni reason for continued hospitalization:dispo planning periodic lab check 12/18, bmp/cbc--unremarkable Quality Stroke Does the patient have a stroke diagnosis?: No VTE Prior VTE?: No VTE Risk Level:: Medical - moderate - high VTE Device Contraindication: Treatment Not Indicated VTE Drug Contraindication: N/A - Med Ordered
[2023-12-27 19:46] VITALS: BP 118/60; PULSE 63; RESP 20; TEMP 36.8; O2SAT 96
[2023-12-27] MEDS: traZODone HCL 50 MG TABLET PO (20:35)
[2023-12-27] MEDS: Atorvastatin Calcium 20 MG TABLET PO (20:35)
[2023-12-27] MEDS: Montelukast Sodium 10 MG TABLET PO (20:35)
[2023-12-27] MEDS: Enoxaparin Sodium 40 MG/0.4 ML SYRINGE SUBCUT (20:36)
[2023-12-27] MEDS: Melatonin 3 MG TABLET 6 MG PO (23:51)
[2023-12-28 04:00] VITALS: BP 142/62; PULSE 78; RESP 20; TEMP 36.7; O2SAT 96
[2023-12-28 07:41] VITALS: BP 129/72; PULSE 69; RESP 18; TEMP 36.4; O2SAT 95
[2023-12-28] MEDS: Fluticasone/Umeclidinium/Vilanterol 100/62.5/25 BLST.W.DEV 1 PUFF INHALE (08:01)
[2023-12-28 08:03] VITALS: PULSE 85; RESP 18; O2SAT 94
--- NOTE | 2023-12-28 08:23 | MHC.CM.PN ---
KALIN spoke with Dee at [facility] on 12/28/23, she had sent a list of all SNF's in the [facility] that are contracted with [facility]. KALIN sent referrals to all those who had not previously received a referral and updated requests for open beds for some of the previously referred to SNF's. No answers received. Today, KALIN received a message from Candice Bansal from the [facility] and she requested that we re-send referral to [facility]. Referral sent today.
[2023-12-28] MEDS: traMADoL HCL 50 MG TABLET PO (08:36)
[2023-12-28] MEDS: amLODIPine Besylate 5 MG TABLET PO (08:36)
[2023-12-28] MEDS: Gabapentin 100 MG CAPSULE PO (08:36)
[2023-12-28] MEDS: FLUoxetine HCl 20 MG CAPSULE PO (08:36)
[2023-12-28] MEDS: Cholecalciferol (Vitamin D3) 25 MCG TABLET PO (08:37)
[2023-12-28] MEDS: hydroCHLOROthiazide 12.5 MG TABLET PO (08:37)
[2023-12-28] MEDS: Aspirin Enteric Coated 81 MG TABLET.DR PO (08:37)
--- NOTE | 2023-12-28 15:06 | P.PNIM_ITS ---
Subjective Subjective Date of Service: 12/28/23 Interval History: no new sisues Review of Systems no new c/o Physical Exam 2 Vital Signs: Vital Signs: Last Vital Signs Temp 97.5 F 12/28/23 07:41 Pulse 85 12/28/23 08:03 Resp 18 12/28/23 08:03 BP 129/72 12/28/23 07:41 Pulse Ox 95 12/28/23 07:41 O2 Del Method Room Air 12/28/23 07:41 O2 Flow Rate 3 12/22/23 20:00 BMI result Body Mass Index 28.0 Constitutional : resting comfortably Cardiovascular : no JVP, no lower extremity edema Respiratory : bilateral chest movement, not in resp distress Gastrointestinal: soft, lax, Non tender Skin : Warm, Dry MSK: swelling int he left knee, no redness, no tenderness Neurological : Alert & oriented to self , No focal deficit Objective Data Active Medications Acetaminophen (Acetaminophen 325 Mg Tablet) 650 mg PO Q6H PRN PRN Reason: Pain, Mild (Pain Scale 1-3), fever or headache Last Admin: 12/27/23 11:05 Dose: 650 mg Documented By: NURIS Albuterol Sulfate (Albuterol Sulfate 90 Mcg 8 Gm Inhaler) 2 puff INHALE RQ6H PRN PRN Reason: sob Amlodipine Besylate (Amlodipine Besylate 5 Mg Tablet) 5 mg PO DAILY [facility]; Protocol Last Admin: 12/28/23 08:36 Dose: 5 mg Documented By: JANETTE Artificial Tears (Artificial Tears 15 Ml Drops) 2 drop EYE-BOTH Q4H PRN PRN Reason: Dry Eyes Last Admin: 12/21/23 03:08 Dose: 2 drop Documented By: YOMI Aspirin (Aspirin Enteric Coated 81 Mg Tablet.) 81 mg PO DAILY [facility] Last Admin: 12/28/23 08:37 Dose: 81 mg Documented By: JANETTE Atorvastatin Calcium (Atorvastatin Calcium 20 Mg Tablet) 20 mg PO BEDTIME [facility] Last Admin: 12/27/23 20:35 Dose: 20 mg Documented By: WILL Calcium Carbonate (Calcium Carbonate 750 Mg Tab.Chew) 750 mg PO Q4H PRN PRN Reason: Heartburn Enoxaparin Sodium (Enoxaparin Sodium 40 Mg/0.4 Ml Syringe) 40 mg SUBCUT Q24H [facility] Last Admin: 12/27/23 20:36 Dose: 40 mg Documented By: WILL Fluoxetine HCl (Fluoxetine Hcl 20 Mg Capsule) 20 mg PO DAILY [facility] Last Admin: 12/28/23 08:36 Dose: 20 mg Documented By: JANETTE Fluticasone/Umeclidinium/Vilanterol (Fluticasone/Umeclidinium/Vilanterol 100/62.5/25 Blst.W.Dev) 1 puff INHALE RDAILY [facility] Last Admin: 12/28/23 08:01 Dose: 1 puff Documented By: ADELA Gabapentin (Gabapentin 100 Mg Capsule) 100 mg PO DAILY [facility] Last Admin: 12/28/23 08:36 Dose: 100 mg Documented By: JANETTE Hydrochlorothiazide (Hydrochlorothiazide 12.5 Mg Tablet) 12.5 mg PO DAILY [facility]; Protocol Last Admin: 12/28/23 08:37 Dose: 12.5 mg Documented By: JANETTE Magnesium Hydroxide (Milk Of Magnesia 30 Ml Oral.Susp) 30 ml PO DAILY PRN PRN Reason: Constipation Last Admin: 12/08/23 08:25 Dose: 30 ml Documented By: AUDI Melatonin (Melatonin 3 Mg Tablet) 6 mg PO BEDTIME PRN PRN Reason: Insomnia Last Admin: 12/27/23 23:51 Dose: 6 mg Documented By: WILL Montelukast Sodium (Montelukast Sodium 10 Mg Tablet) 10 mg PO BEDTIME [facility] Last Admin: 12/27/23 20:35 Dose: 10 mg Documented By: WILL Tramadol HCl (Tramadol Hcl 50 Mg Tablet) 50 mg PO Q6H PRN PRN Reason: Pain, Severe (Pain Scale 7-10) Last Admin: 12/28/23 08:36 Dose: 50 mg Documented By: JANETTE Trazodone HCl (Trazodone Hcl 50 Mg Tablet) 50 mg PO BEDTIME [facility] Last Admin: 12/27/23 20:35 Dose: 50 mg Documented By: WILL Vitamin D (Cholecalciferol (Vitamin D3) 25 Mcg Tablet) 25 mcg PO DAILY [facility] Last Admin: 12/28/23 08:37 Dose: 25 mcg Documented By: JANETTE Labs 12/19/23 06:07 12/19/23 06:07 Assessment and Plan (1) Cognitive disorder: Status: Acute Assessment and Plan: 83M PMH copd, htn, hld, dementia unspecified, prostate ca, [facility] interaction with another female resident. remains stable, no new issues reported Fall , while inpt, no injuries, CT Head unremarkable (outpatient ENT follow up for chronic 1.5cm pedunculated polypoid soft tissue ) Unspecified dementia, stable, needs placement -Prozac per Psych eval for sexual inappropriateness. 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 No acute fracture or dislocation is seen. 2. Persistent left tibiofemoral joint osteoarthritis, most severe in the medial compartment. Interval appearance of genu varus deformity. 3. Left suprapatellar fat pad shows bulging increase in density. -pain likely from above -tylenol and tramadol for pain -ortho recommends conservative managament, PT -tramadol and tylenol fo pain, topical med dvt prophylaxis - lovenox dnr/dni reason for continued hospitalization:dispo planning periodic lab check 12/18, bmp/cbc--unremarkable Quality Stroke Does the patient have a stroke diagnosis?: No VTE Prior VTE?: No VTE Risk Level:: Medical - moderate - high VTE Device Contraindication: Treatment Not Indicated VTE Drug Contraindication: N/A - Med Ordered
[2023-12-28 15:46] VITALS: BP 130/64; PULSE 70; RESP 18; TEMP 36.8; O2SAT 97
[2023-12-28 20:00] VITALS: BP 134/61; PULSE 66; RESP 16; TEMP 36.7; O2SAT 96
[2023-12-28] MEDS: traZODone HCL 50 MG TABLET PO (20:49)
[2023-12-28] MEDS: Atorvastatin Calcium 20 MG TABLET PO (20:49)
[2023-12-28] MEDS: Montelukast Sodium 10 MG TABLET PO (20:49)
[2023-12-28] MEDS: Enoxaparin Sodium 40 MG/0.4 ML SYRINGE SUBCUT (20:49)
[2023-12-29 03:51] VITALS: BP 160/78; PULSE 68; RESP 20; TEMP 36.6; O2SAT 98
[2023-12-29 07:45] VITALS: BP 162/72; PULSE 73; RESP 20; TEMP 36.5; O2SAT 99
[2023-12-29] MEDS: Fluticasone/Umeclidinium/Vilanterol 100/62.5/25 BLST.W.DEV 1 PUFF INHALE (07:51)
[2023-12-29 07:52] VITALS: PULSE 73; RESP 18; O2SAT 95
[2023-12-29] MEDS: amLODIPine Besylate 5 MG TABLET PO (09:02)
[2023-12-29] MEDS: Cholecalciferol (Vitamin D3) 25 MCG TABLET PO (09:02)
[2023-12-29] MEDS: Gabapentin 100 MG CAPSULE PO (09:02)
[2023-12-29] MEDS: FLUoxetine HCl 20 MG CAPSULE PO (09:02)
[2023-12-29] MEDS: hydroCHLOROthiazide 12.5 MG TABLET PO (09:02)
[2023-12-29] MEDS: Aspirin Enteric Coated 81 MG TABLET.DR PO (09:02)
[2023-12-29] MEDS: Acetaminophen 325 MG TABLET 650 MG PO ×2 (09:02→21:06)
--- NOTE | 2023-12-29 15:14 | P.PNIM_ITS ---
Subjective Subjective Date of Service: 12/29/23 Interval History: no new sisues Review of Systems no new c/o Physical Exam 2 Vital Signs: Vital Signs: Last Vital Signs Temp 97.7 F 12/29/23 07:45 Pulse 73 12/29/23 07:52 Resp 18 12/29/23 07:52 BP 162/72 H 12/29/23 07:45 Pulse Ox 99 12/29/23 07:45 O2 Del Method Room Air 12/29/23 07:45 O2 Flow Rate 3 12/22/23 20:00 BMI result Body Mass Index 28.0 Constitutional : resting comfortably Cardiovascular : no JVP, no lower extremity edema Respiratory : bilateral chest movement, not in resp distress Gastrointestinal: soft, lax, Non tender Skin : Warm, Dry MSK: swelling int he left knee, no redness, no tenderness Neurological : Alert & oriented to self , No focal deficit Objective Data Active Medications Acetaminophen (Acetaminophen 325 Mg Tablet) 650 mg PO Q6H PRN PRN Reason: Pain, Mild (Pain Scale 1-3), fever or headache Last Admin: 12/29/23 09:02 Dose: 650 mg Documented By: JUANITO Albuterol Sulfate (Albuterol Sulfate 90 Mcg 8 Gm Inhaler) 2 puff INHALE RQ6H PRN PRN Reason: sob Amlodipine Besylate (Amlodipine Besylate 5 Mg Tablet) 5 mg PO DAILY [facility]; Protocol Last Admin: 12/29/23 09:02 Dose: 5 mg Documented By: JUANITO Artificial Tears (Artificial Tears 15 Ml Drops) 2 drop EYE-BOTH Q4H PRN PRN Reason: Dry Eyes Last Admin: 12/21/23 03:08 Dose: 2 drop Documented By: YOMI Aspirin (Aspirin Enteric Coated 81 Mg Tablet.Dr) 81 mg PO DAILY [facility] Last Admin: 12/29/23 09:02 Dose: 81 mg Documented By: JUANITO Atorvastatin Calcium (Atorvastatin Calcium 20 Mg Tablet) 20 mg PO BEDTIME [facility] Last Admin: 12/28/23 20:49 Dose: 20 mg Documented By: NA Calcium Carbonate (Calcium Carbonate 750 Mg Tab.Chew) 750 mg PO Q4H PRN PRN Reason: Heartburn Enoxaparin Sodium (Enoxaparin Sodium 40 Mg/0.4 Ml Syringe) 40 mg SUBCUT Q24H [facility] Last Admin: 12/28/23 20:49 Dose: 40 mg Documented By: NA Fluoxetine HCl (Fluoxetine Hcl 20 Mg Capsule) 20 mg PO DAILY [facility] Last Admin: 12/29/23 09:02 Dose: 20 mg Documented By: JUANITO Fluticasone/Umeclidinium/Vilanterol (Fluticasone/Umeclidinium/Vilanterol 100/62.5/25 Blst.W.Dev) 1 puff INHALE RDAILY [facility] Last Admin: 12/29/23 07:51 Dose: 1 puff Documented By: ADELA Gabapentin (Gabapentin 100 Mg Capsule) 100 mg PO DAILY [facility] Last Admin: 12/29/23 09:02 Dose: 100 mg Documented By: JUANITO Hydrochlorothiazide (Hydrochlorothiazide 12.5 Mg Tablet) 12.5 mg PO DAILY [facility]; Protocol Last Admin: 12/29/23 09:02 Dose: 12.5 mg Documented By: JUANITO Magnesium Hydroxide (Milk Of Magnesia 30 Ml Oral.Susp) 30 ml PO DAILY PRN PRN Reason: Constipation Last Admin: 12/08/23 08:25 Dose: 30 ml Documented By: AUDI Melatonin (Melatonin 3 Mg Tablet) 6 mg PO BEDTIME PRN PRN Reason: Insomnia Last Admin: 12/27/23 23:51 Dose: 6 mg Documented By: WILL Montelukast Sodium (Montelukast Sodium 10 Mg Tablet) 10 mg PO BEDTIME [facility] Last Admin: 12/28/23 20:49 Dose: 10 mg Documented By: NA Tramadol HCl (Tramadol Hcl 50 Mg Tablet) 50 mg PO Q6H PRN PRN Reason: Pain, Severe (Pain Scale 7-10) Last Admin: 12/28/23 08:36 Dose: 50 mg Documented By: JANETTE Trazodone HCl (Trazodone Hcl 50 Mg Tablet) 50 mg PO BEDTIME [facility] Last Admin: 12/28/23 20:49 Dose: 50 mg Documented By: NA Vitamin D (Cholecalciferol (Vitamin D3) 25 Mcg Tablet) 25 mcg PO DAILY [facility] Last Admin: 12/29/23 09:02 Dose: 25 mcg Documented By: JUANITO Labs 12/19/23 06:07 12/19/23 06:07 Assessment and Plan (1) Cognitive disorder: Status: Acute Assessment and Plan: 83M PMH copd, htn, hld, dementia unspecified, prostate ca, sent in from [facility] after inappropriately interaction with another female resident. remains stable, no new issues reported Fall , while inpt, no injuries, CT Head unremarkable (outpatient ENT follow up for chronic 1.5cm pedunculated polypoid soft tissue ) Unspecified dementia, stable, needs placement -Prozac per Psych eval for sexual inappropriateness. 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 neuropathic pain--neurontin copd, - albuterol prn htn - amldoipine, hctz hld - statin left knee pain -uric acid nl -xray:1. No acute fracture or dislocation is seen. 2. Persistent left tibiofemoral joint osteoarthritis, most severe in the medial compartment. Interval appearance of genu varus deformity. 3. Left suprapatellar fat pad shows bulging increase in density. -pain likely from above -tylenol and tramadol for pain -ortho recommends conservative managament, PT -tramadol and tylenol fo pain, topical med dvt prophylaxis - lovenox dnr/dni reason for continued hospitalization:dispo planning periodic lab check 12/18, bmp/cbc--unremarkable Quality Stroke Does the patient have a stroke diagnosis?: No VTE Prior VTE?: No VTE Risk Level:: Medical - moderate - high VTE Device Contraindication: Treatment Not Indicated VTE Drug Contraindication: N/A - Med Ordered
[2023-12-29 15:27] VITALS: BP 123/60; PULSE 61; RESP 18; TEMP 36.1; O2SAT 95
--- NOTE | 2023-12-29 17:34 | MHC.SL.SWA ---
Speech Pathologist Impression: Risk of Aspiration Due to: Dysphasia Diet Status: DOWGRADE to Ground Mechanical (NDD2) so that patient gets vegetables in puree form and smaller ground texture of meats, continue on THIN liquids, pills whole in puree or with water. Liquid Consistency and Strategies for Safe Swallow: Liquid Intake Recommendation: Thin Liquid Intake Strategies: Small Sips Solid Food Consistency: Dietary Recommendations: Grnd/Mech Altered (NDD2) Additional Modifications to Solid Foods: Oral Medication Intake: Whole with Liquid Please contact the pharmacy regarding appropriate crushable or liquid drug formulations that are available whenever modified delivery is recommended. Compensatory Strategies and Precautions to be Taken for Safe Swallow: Sitting Upright (90 deg) Small Bites and Sips Alternate Liquids/Solids Rate of Ingestion Change Supervision While Eating and Drinking for Safe Swallow: Intermittent Supervision Foods to Avoid: Too large pieces of food, hard, difficult to chew solids. Swallowing Recommended Treatments: Compens. Strategy Educat. Recommendation for Speech: Inpatient Speech Therapy Comment: MEAT SOAKER re-contacted today with concerns about patient's swallowing. Patient was seen by MEAT SOAKER 11/30-12/02/23, when first re-admitted to [facility] from [facility] for placement at another facility. Patient has remained at [facility] to date as placement has been difficult. MEAT SOAKER recommended Chopped/Advanced (NDD3) with Thin Liquids, Pills whole with liquid, with issue for patient primarily behaviors associated with swallowing (eats too rapidly). Patient has continued on this diet for the past month, however recently has had at least two episode of choking/coughing when eating his meal. Last night he reportedly coughed/choked on carrots on tray; earlier this week RN reported he had difficulty with Broccoli on tray. RN further noted that patient eats at very rapid rate, shoveling food into mouth. Patient was observed taking solid textures equivalent to ground (softened cracker in puree), Chopped (hard cracker in puree) and regular (plain cracker). Patient produced a mildly prolonged period of mastication followed by a timely swallow on each texture, has some mild residual after the hard cracker, cleared by sip of liquid. However, given behaviors and difficulty noted on harder chopped textures in [facility] diet, at this time it is recommended diet be DOWGRADED to Ground Mechanical (NDD2) so that patient gets vegetables in puree form and smaller ground texture of meats, continue on THIN liquids, pills whole in puree or with water. MEAT SOAKER will f/u X1 to assure toleration of diet. MD/RD notified by secure text, RN in person. Frequency/Duration: 1 f/u Date Range for Service Req: Timeline to reassess: Dopster Clinican/Clinical Fellow: No Supervisory Statement: I have reviewed and agree with the student/clinical fellow's documentation: N/A Speech Language Pathologist: Caitlin Bell M.A., CCC-MEAT SOAKER
[2023-12-29 19:20] VITALS: BP 148/70; PULSE 62; RESP 18; TEMP 36.6; O2SAT 96
[2023-12-29] MEDS: Montelukast Sodium 10 MG TABLET PO (21:06)
[2023-12-29] MEDS: Enoxaparin Sodium 40 MG/0.4 ML SYRINGE SUBCUT (21:06)
[2023-12-29] MEDS: Atorvastatin Calcium 20 MG TABLET PO (21:06)
[2023-12-29] MEDS: traZODone HCL 50 MG TABLET PO (21:06)
[2023-12-30 03:25] VITALS: BP 116/60; PULSE 58; RESP 18; TEMP 36.6; O2SAT 97
[2023-12-30 07:17] VITALS: BP 139/65; PULSE 68; RESP 20; TEMP 36.7; O2SAT 97
[2023-12-30] MEDS: Gabapentin 100 MG CAPSULE PO (08:16)
[2023-12-30] MEDS: Aspirin Enteric Coated 81 MG TABLET.DR PO (08:16)
[2023-12-30] MEDS: FLUoxetine HCl 20 MG CAPSULE PO (08:16)
[2023-12-30] MEDS: Acetaminophen 325 MG TABLET 650 MG PO ×2 (08:16→20:26)
[2023-12-30] MEDS: Cholecalciferol (Vitamin D3) 25 MCG TABLET PO (08:16)
[2023-12-30] MEDS: hydroCHLOROthiazide 12.5 MG TABLET PO (08:16)
[2023-12-30] MEDS: amLODIPine Besylate 5 MG TABLET PO (08:16)
--- NOTE | 2023-12-30 11:00 | MHC.SL.SWA ---
Speech Pathologist Impression: Risk of Aspiration Risk of Aspiration Due to: Impulsivity Dysphasia Diet Status: Continue diet of Ground Mechanical (NDD2) so that patient gets vegetables in puree form and smaller ground texture of meats, Thin Liquids, pills whole in puree or with water. Liquid Consistency and Strategies for Safe Swallow: Liquid Intake Recommendation: Thin Liquid Intake Strategies: Small Sips Solid Food Consistency: Dietary Recommendations: Grnd/Mech Altered (NDD2) Oral Medication Intake: Whole with Liquid Please contact the pharmacy regarding appropriate crushable or liquid drug formulations that are available whenever modified delivery is recommended. Compensatory Strategies and Precautions to be Taken for Safe Swallow: Sitting Upright (90 deg) Small Bites and Sips Alternate Liquids/Solids Rate of Ingestion Change Supervision While Eating and Drinking for Safe Swallow: Intermittent Supervision Foods to Avoid: Too large pieces of food, hard, difficult to chew solids. Swallowing Recommended Treatments: Compens. Strategy Educat. Recommendation for Speech: D/C Administrative Assistant Coordinator Clinican/Clinical Fellow: No Supervisory Statement: I have reviewed and agree with the student/clinical fellow's documentation: N/A Speech Language Pathologist: Lesa Griggs M.A., CCC-BUTTER FAT TESTER
[2023-12-30] MEDS: traMADoL HCL 50 MG TABLET PO (13:00)
[2023-12-30 16:00] VITALS: BP 121/58; PULSE 60; RESP 19; TEMP 36.9; O2SAT 96
--- NOTE | 2023-12-30 18:13 | P.PNIM_ITS ---
Subjective Subjective Date of Service: 12/30/23 Interval History: no new issues Review of Systems no new c/o Physical Exam 2 Vital Signs: Vital Signs: Last Vital Signs Temp 98.5 F 12/30/23 16:00 Pulse 60 12/30/23 16:00 Resp 19 12/30/23 16:00 BP 121/58 L 12/30/23 16:00 Pulse Ox 96 12/30/23 16:00 O2 Del Method Room Air 12/30/23 16:00 O2 Flow Rate 3 12/22/23 20:00 BMI result Body Mass Index 28.0 Constitutional : resting comfortably Cardiovascular : no JVP, no lower extremity edema Respiratory : bilateral chest movement, not in resp distress Gastrointestinal: soft, lax, Non tender Skin : Warm, Dry MSK: swelling int he left knee, no redness, no tenderness Neurological : Alert & oriented to self , No focal deficit Objective Data Active Medications Acetaminophen (Acetaminophen 325 Mg Tablet) 650 mg PO Q6H PRN PRN Reason: Pain, Mild (Pain Scale 1-3), fever or headache Last Admin: 12/30/23 08:16 Dose: 650 mg Documented By: JUANITO Albuterol Sulfate (Albuterol Sulfate 90 Mcg 8 Gm Inhaler) 2 puff INHALE RQ6H PRN PRN Reason: sob Amlodipine Besylate (Amlodipine Besylate 5 Mg Tablet) 5 mg PO DAILY [facility]; Protocol Last Admin: 12/30/23 08:16 Dose: 5 mg Documented By: JUANITO Artificial Tears (Artificial Tears 15 Ml Drops) 2 drop EYE-BOTH Q4H PRN PRN Reason: Dry Eyes Last Admin: 12/21/23 03:08 Dose: 2 drop Documented By: YOMI Aspirin (Aspirin Enteric Coated 81 Mg Tablet.Dr) 81 mg PO DAILY [facility] Last Admin: 12/30/23 08:16 Dose: 81 mg Documented By: JUANITO Atorvastatin Calcium (Atorvastatin Calcium 20 Mg Tablet) 20 mg PO BEDTIME [facility] Last Admin: 12/29/23 21:06 Dose: 20 mg Documented By: NA Calcium Carbonate (Calcium Carbonate 750 Mg Tab.Chew) 750 mg PO Q4H PRN PRN Reason: Heartburn Enoxaparin Sodium (Enoxaparin Sodium 40 Mg/0.4 Ml Syringe) 40 mg SUBCUT Q24H [facility] Last Admin: 12/29/23 21:06 Dose: 40 mg Documented By: NA Fluoxetine HCl (Fluoxetine Hcl 20 Mg Capsule) 20 mg PO DAILY [facility] Last Admin: 12/30/23 08:16 Dose: 20 mg Documented By: JUANITO Fluticasone/Umeclidinium/Vilanterol (Fluticasone/Umeclidinium/Vilanterol 100/62.5/25 Blst.W.Dev) 1 puff INHALE RDAILY [facility] Last Admin: 12/30/23 07:49 Dose: Not Given Documented By: KAYLEIGH Non-Admin Reason: Patient Refused Gabapentin (Gabapentin 100 Mg Capsule) 100 mg PO DAILY [facility] Last Admin: 12/30/23 08:16 Dose: 100 mg Documented By: JUANITO Hydrochlorothiazide (Hydrochlorothiazide 12.5 Mg Tablet) 12.5 mg PO DAILY [facility]; Protocol Last Admin: 12/30/23 08:16 Dose: 12.5 mg Documented By: JUANITO Magnesium Hydroxide (Milk Of Magnesia 30 Ml Oral.Susp) 30 ml PO DAILY PRN PRN Reason: Constipation Last Admin: 12/08/23 08:25 Dose: 30 ml Documented By: AUDI Melatonin (Melatonin 3 Mg Tablet) 6 mg PO BEDTIME PRN PRN Reason: Insomnia Last Admin: 12/27/23 23:51 Dose: 6 mg Documented By: WILL Montelukast Sodium (Montelukast Sodium 10 Mg Tablet) 10 mg PO BEDTIME [facility] Last Admin: 12/29/23 21:06 Dose: 10 mg Documented By: NA Tramadol HCl (Tramadol Hcl 50 Mg Tablet) 50 mg PO Q6H PRN PRN Reason: Pain, Severe (Pain Scale 7-10) Last Admin: 12/28/23 08:36 Dose: 50 mg Documented By: JANETTE Trazodone HCl (Trazodone Hcl 50 Mg Tablet) 50 mg PO BEDTIME [facility] Last Admin: 12/29/23 21:06 Dose: 50 mg Documented By: NA Vitamin D (Cholecalciferol (Vitamin D3) 25 Mcg Tablet) 25 mcg PO DAILY [facility] Last Admin: 12/30/23 08:16 Dose: 25 mcg Documented By: HO.LESSARL Labs 12/19/23 06:07 12/19/23 06:07 Assessment and Plan (1) Cognitive disorder: Status: Acute Assessment and Plan: 83M PMH copd, htn, hld, dementia unspecified, prostate ca, sent in from [facility] after inappropriately interaction with another female resident. remains stable, no new issues reported Fall , while inpt, no injuries, CT Head unremarkable (outpatient ENT follow up for chronic 1.5cm pedunculated polypoid soft tissue ) Unspecified dementia, stable, needs placement -Prozac per Psych eval for sexual inappropriateness. 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 neuropathic pain--neurontin copd, - albuterol prn htn - amldoipine, hctz hld - statin left knee pain -uric acid nl -xray:1. No acute fracture or dislocation is seen. 2. Persistent left tibiofemoral joint osteoarthritis, most severe in the medial compartment. Interval appearance of genu varus deformity. 3. Left suprapatellar fat pad shows bulging increase in density. -pain likely from above -tylenol and tramadol for pain -ortho recommends conservative managament, PT -tramadol and tylenol fo pain, topical med dvt prophylaxis - lovenox dnr/dni reason for continued hospitalization:dispo planning periodic lab check . Quality Stroke Does the patient have a stroke diagnosis?: No VTE Prior VTE?: No VTE Risk Level:: Medical - moderate - high VTE Device Contraindication: Treatment Not Indicated VTE Drug Contraindication: N/A - Med Ordered
[2023-12-30 20:00] VITALS: BP 138/69; PULSE 66; RESP 18; TEMP 36.6; O2SAT 97
[2023-12-30] MEDS: traZODone HCL 50 MG TABLET PO (20:26)
[2023-12-30] MEDS: Atorvastatin Calcium 20 MG TABLET PO (20:26)
[2023-12-30] MEDS: Montelukast Sodium 10 MG TABLET PO (20:26)
[2023-12-30] MEDS: Enoxaparin Sodium 40 MG/0.4 ML SYRINGE SUBCUT (20:26)
[2023-12-31 03:30] VITALS: BP 144/73; PULSE 63; RESP 18; TEMP 36.2; O2SAT 96
[2023-12-31 07:16] VITALS: PULSE 63; RESP 18; O2SAT 96
[2023-12-31] MEDS: Fluticasone/Umeclidinium/Vilanterol 100/62.5/25 BLST.W.DEV 1 PUFF INHALE (07:16)
[2023-12-31 07:21] LABS: Hematocrit 40.2 % (42.0-52.0); Hemoglobin 14.2 g/dl (14.0-18.0); Mean Corpuscular HGB Conc 35.3 g/dl (31.0-36.0); Mean Corpuscular Hemoglobin 30.5 pg (27.0-33.0); Mean Corpuscular Volume 86.3 fL (80.0-98.0); Platelet Count 303 X10*3/uL (160-400); Red Blood Count 4.66 X10*6/uL (4.60-5.80); Red Cell Distribution Width 13.3 % (11.0-16.0); White Blood Count 8.6 X10*3/uL (4.8-10.8)
[2023-12-31 07:34] LABS: Anion Gap 13 (12-20); Blood Urea Nitrogen 16 mg/dL (9-16); Calcium 9.2 mg/dL (8.4-10.2); Carbon Dioxide 28 mmol/L (22-29); Chloride 99 mmol/L (96-108); Creatinine Clr Calc Pharmacy 59.4; Estimated Glomerular Filt Rate > 60; Glucose Random 96 mg/dL (60-115); Potassium 3.8 mmol/L (3.3-5.1); Sodium 136 mmol/L (135-145)
[2023-12-31 07:44] VITALS: BP 138/66; PULSE 61; RESP 20; TEMP 36.5; O2SAT 95
[2023-12-31] MEDS: amLODIPine Besylate 5 MG TABLET PO (07:59)
[2023-12-31] MEDS: Cholecalciferol (Vitamin D3) 25 MCG TABLET PO (07:59)
[2023-12-31] MEDS: hydroCHLOROthiazide 12.5 MG TABLET PO (07:59)
[2023-12-31] MEDS: Aspirin Enteric Coated 81 MG TABLET.DR PO (07:59)
[2023-12-31] MEDS: FLUoxetine HCl 20 MG CAPSULE PO (07:59)
[2023-12-31] MEDS: Gabapentin 100 MG CAPSULE PO (07:59)
[2023-12-31 11:39] VITALS: BP 120/58; PULSE 58; RESP 20; TEMP 36.9; O2SAT 96
[2023-12-31] MEDS: Acetaminophen 325 MG TABLET 650 MG PO ×2 (15:22→21:16)
--- NOTE | 2023-12-31 15:22 | P.PNIM_ITS ---
Subjective Subjective Date of Service: 12/31/23 Interval History: no new issues Review of Systems no new c/o Physical Exam 2 Vital Signs: Vital Signs: Last Vital Signs Temp 98.4 F 12/31/23 11:39 Pulse 58 12/31/23 11:39 Resp 20 12/31/23 11:39 BP 120/58 L 12/31/23 11:39 Pulse Ox 96 12/31/23 11:39 O2 Del Method Room Air 12/31/23 11:39 O2 Flow Rate 3 12/22/23 20:00 BMI result Body Mass Index 28.0 Constitutional : resting comfortably Cardiovascular : no JVP, no lower extremity edema Respiratory : bilateral chest movement, not in resp distress Gastrointestinal: soft, lax, Non tender Skin : Warm, Dry MSK: swelling int he left knee, no redness, no tenderness Neurological : Alert & oriented to self , No focal deficit Objective Data Active Medications Acetaminophen (Acetaminophen 325 Mg Tablet) 650 mg PO Q6H PRN PRN Reason: Pain, Mild (Pain Scale 1-3), fever or headache Last Admin: 12/30/23 20:26 Dose: 650 mg Documented By: NA Albuterol Sulfate (Albuterol Sulfate 90 Mcg 8 Gm Inhaler) 2 puff INHALE RQ6H PRN PRN Reason: sob Amlodipine Besylate (Amlodipine Besylate 5 Mg Tablet) 5 mg PO DAILY [facility]; Protocol Last Admin: 12/31/23 07:59 Dose: 5 mg Documented By: THONY Artificial Tears (Artificial Tears 15 Ml Drops) 2 drop EYE-BOTH Q4H PRN PRN Reason: Dry Eyes Last Admin: 12/21/23 03:08 Dose: 2 drop Documented By: YOMI Aspirin (Aspirin Enteric Coated 81 Mg Tablet.) 81 mg PO DAILY [facility] Last Admin: 12/31/23 07:59 Dose: 81 mg Documented By: THONY Atorvastatin Calcium (Atorvastatin Calcium 20 Mg Tablet) 20 mg PO BEDTIME [facility] Last Admin: 12/30/23 20:26 Dose: 20 mg Documented By: NA Calcium Carbonate (Calcium Carbonate 750 Mg Tab.Chew) 750 mg PO Q4H PRN PRN Reason: Heartburn Enoxaparin Sodium (Enoxaparin Sodium 40 Mg/0.4 Ml Syringe) 40 mg SUBCUT Q24H [facility] Last Admin: 12/30/23 20:26 Dose: 40 mg Documented By: NA Fluoxetine HCl (Fluoxetine Hcl 20 Mg Capsule) 20 mg PO DAILY [facility] Last Admin: 12/31/23 07:59 Dose: 20 mg Documented By: THONY Fluticasone/Umeclidinium/Vilanterol (Fluticasone/Umeclidinium/Vilanterol 100/62.5/25 Blst.W.Dev) 1 puff INHALE RDAILY [facility] Last Admin: 12/31/23 07:16 Dose: 1 puff Documented By: KAYLEIGH Gabapentin (Gabapentin 100 Mg Capsule) 100 mg PO DAILY [facility] Last Admin: 12/31/23 07:59 Dose: 100 mg Documented By: THONY Hydrochlorothiazide (Hydrochlorothiazide 12.5 Mg Tablet) 12.5 mg PO DAILY [facility]; Protocol Last Admin: 12/31/23 07:59 Dose: 12.5 mg Documented By: THONY Magnesium Hydroxide (Milk Of Magnesia 30 Ml Oral.Susp) 30 ml PO DAILY PRN PRN Reason: Constipation Last Admin: 12/08/23 08:25 Dose: 30 ml Documented By: AUDI Melatonin (Melatonin 3 Mg Tablet) 6 mg PO BEDTIME PRN PRN Reason: Insomnia Last Admin: 12/27/23 23:51 Dose: 6 mg Documented By: WILL Montelukast Sodium (Montelukast Sodium 10 Mg Tablet) 10 mg PO BEDTIME [facility] Last Admin: 12/30/23 20:26 Dose: 10 mg Documented By: NA Trazodone HCl (Trazodone Hcl 50 Mg Tablet) 50 mg PO BEDTIME [facility] Last Admin: 12/30/23 20:26 Dose: 50 mg Documented By: NA Vitamin D (Cholecalciferol (Vitamin D3) 25 Mcg Tablet) 25 mcg PO DAILY [facility] Last Admin: 12/31/23 07:59 Dose: 25 mcg Documented By: THONY Labs 12/31/23 07:06 12/31/23 07:06 Labs: Laboratory Results - last 24 hr 12/31/23 07:06 MCV 86.3 MCH 30.5 MCHC 35.3 RDW 13.3 Plt Count 303 MPV 10.0 Absolute Nucleated RBC 0.000 Nucleated RBC % (auto) 0.0 Anion Gap 13 Estim Creat Clear Calc 59.4 Estimated GFR > 60 Random Glucose 96 Calcium 9.2 Assessment and Plan (1) Cognitive disorder: Status: Acute Assessment and Plan: 83M PMH copd, htn, hld, dementia unspecified, prostate ca, sent in from [facility] after inappropriately interaction with another female resident. remains stable, no new issues reported Fall , while inpt, no injuries, CT Head unremarkable (outpatient ENT follow up for chronic 1.5cm pedunculated polypoid soft tissue ) Unspecified dementia, stable, needs placement -Prozac per Psych eval for sexual inappropriateness. 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 neuropathic pain--neurontin copd, - albuterol prn htn - amldoipine, hctz hld - statin left knee pain -uric acid nl -xray:1. No acute fracture or dislocation is seen. 2. Persistent left tibiofemoral joint osteoarthritis, most severe in the medial compartment. Interval appearance of genu varus deformity. 3. Left suprapatellar fat pad shows bulging increase in density. -pain likely from above -tylenol and tramadol for pain -ortho recommends conservative managament, PT -tramadol and tylenol fo pain, topical med dvt prophylaxis - lovenox dnr/dni reason for continued hospitalization:dispo planning periodic lab check . Quality Stroke Does the patient have a stroke diagnosis?: No VTE Prior VTE?: No VTE Risk Level:: Medical - moderate - high VTE Device Contraindication: Treatment Not Indicated VTE Drug Contraindication: N/A - Med Ordered
[2023-12-31 16:00] VITALS: BP 126/60; PULSE 54; RESP 18; TEMP 36.4; O2SAT 98
[2023-12-31 19:17] VITALS: BP 130/62; PULSE 57; RESP 16; TEMP 36.6; O2SAT 97
[2023-12-31] MEDS: Montelukast Sodium 10 MG TABLET PO (21:15)
[2023-12-31] MEDS: Atorvastatin Calcium 20 MG TABLET PO (21:15)
[2023-12-31] MEDS: traZODone HCL 50 MG TABLET PO (21:15)
[2023-12-31] MEDS: Enoxaparin Sodium 40 MG/0.4 ML SYRINGE SUBCUT (21:16)
[2024-01-01 03:08] VITALS: BP 124/57; PULSE 62; RESP 18; TEMP 36.3; O2SAT 97
[2024-01-01 07:35] VITALS: PULSE 80; RESP 16; O2SAT 94
[2024-01-01] MEDS: Fluticasone/Umeclidinium/Vilanterol 100/62.5/25 BLST.W.DEV 1 PUFF INHALE (07:35)
[2024-01-01 08:00] VITALS: BP 123/57; PULSE 58; RESP 20; TEMP 36.5; O2SAT 98
[2024-01-01] MEDS: hydroCHLOROthiazide 12.5 MG TABLET PO (08:15)
[2024-01-01] MEDS: Aspirin Enteric Coated 81 MG TABLET.DR PO (08:15)
[2024-01-01] MEDS: amLODIPine Besylate 5 MG TABLET PO (08:15)
[2024-01-01] MEDS: Cholecalciferol (Vitamin D3) 25 MCG TABLET PO (08:15)
[2024-01-01] MEDS: Gabapentin 100 MG CAPSULE PO (08:15)
[2024-01-01] MEDS: FLUoxetine HCl 20 MG CAPSULE PO (08:16)
--- NOTE | 2024-01-01 09:31 | P.PNIM_ITS ---
Subjective Subjective Date of Service: 01/01/24 Interval History: folow up Review of Systems no overnight events Physical Exam 2 Vital Signs: Vital Signs: Last Vital Signs Temp 97.7 F 01/01/24 08:00 Pulse 58 01/01/24 08:00 Resp 20 01/01/24 08:00 BP 123/57 L 01/01/24 08:00 Pulse Ox 98 01/01/24 08:00 O2 Del Method Room Air 01/01/24 08:00 O2 Flow Rate 3 12/22/23 20:00 BMI result Body Mass Index 28.0 Constitutional : resting comfortably Cardiovascular : no JVP, no lower extremity edema Respiratory : bilateral chest movement, not in resp distress Gastrointestinal: soft, lax, Non tender Skin : Warm, Dry MSK: swelling int he left knee, no redness, no tenderness Neurological : Alert & oriented to self , No focal deficit Objective Data Active Medications Acetaminophen (Acetaminophen 325 Mg Tablet) 650 mg PO Q6H PRN PRN Reason: Pain, Mild (Pain Scale 1-3), fever or headache Last Admin: 12/31/23 21:16 Dose: 650 mg Documented By: NA Albuterol Sulfate (Albuterol Sulfate 90 Mcg 8 Gm Inhaler) 2 puff INHALE RQ6H PRN PRN Reason: sob Amlodipine Besylate (Amlodipine Besylate 5 Mg Tablet) 5 mg PO DAILY [facility]; Protocol Last Admin: 01/01/24 08:15 Dose: 5 mg Documented By: GUEVARA Artificial Tears (Artificial Tears 15 Ml Drops) 2 drop EYE-BOTH Q4H PRN PRN Reason: Dry Eyes Last Admin: 12/21/23 03:08 Dose: 2 drop Documented By: YOMI Aspirin (Aspirin Enteric Coated 81 Mg Tablet.) 81 mg PO DAILY [facility] Last Admin: 01/01/24 08:15 Dose: 81 mg Documented By: GUEVARA Atorvastatin Calcium (Atorvastatin Calcium 20 Mg Tablet) 20 mg PO BEDTIME [facility] Last Admin: 12/31/23 21:15 Dose: 20 mg Documented By: NA Calcium Carbonate (Calcium Carbonate 750 Mg Tab.Chew) 750 mg PO Q4H PRN PRN Reason: Heartburn Enoxaparin Sodium (Enoxaparin Sodium 40 Mg/0.4 Ml Syringe) 40 mg SUBCUT Q24H [facility] Last Admin: 12/31/23 21:16 Dose: 40 mg Documented By: NA Fluoxetine HCl (Fluoxetine Hcl 20 Mg Capsule) 20 mg PO DAILY [facility] Last Admin: 01/01/24 08:16 Dose: 20 mg Documented By: GUEVARA Fluticasone/Umeclidinium/Vilanterol (Fluticasone/Umeclidinium/Vilanterol 100/62.5/25 Blst.W.Dev) 1 puff INHALE RDAILY [facility] Last Admin: 01/01/24 07:35 Dose: 1 puff Documented By: DIANNA Gabapentin (Gabapentin 100 Mg Capsule) 100 mg PO DAILY [facility] Last Admin: 01/01/24 08:15 Dose: 100 mg Documented By: GUEVARA Hydrochlorothiazide (Hydrochlorothiazide 12.5 Mg Tablet) 12.5 mg PO DAILY [facility]; Protocol Last Admin: 01/01/24 08:15 Dose: 12.5 mg Documented By: GUEVARA Magnesium Hydroxide (Milk Of Magnesia 30 Ml Oral.Susp) 30 ml PO DAILY PRN PRN Reason: Constipation Last Admin: 12/08/23 08:25 Dose: 30 ml Documented By: AUDI Melatonin (Melatonin 3 Mg Tablet) 6 mg PO BEDTIME PRN PRN Reason: Insomnia Last Admin: 12/27/23 23:51 Dose: 6 mg Documented By: WILL Montelukast Sodium (Montelukast Sodium 10 Mg Tablet) 10 mg PO BEDTIME [facility] Last Admin: 12/31/23 21:15 Dose: 10 mg Documented By: NA Trazodone HCl (Trazodone Hcl 50 Mg Tablet) 50 mg PO BEDTIME [facility] Last Admin: 12/31/23 21:15 Dose: 50 mg Documented By: NA Vitamin D (Cholecalciferol (Vitamin D3) 25 Mcg Tablet) 25 mcg PO DAILY [facility] Last Admin: 01/01/24 08:15 Dose: 25 mcg Documented By: GUEVARA Labs 12/31/23 07:06 12/31/23 07:06 Assessment and Plan (1) Cognitive disorder: Status: Acute Assessment and Plan: 83M PMH copd, htn, hld, dementia unspecified, prostate ca, [facility] interaction with another female resident. remains stable, no new issues reported Fall , while inpt, no injuries, CT Head unremarkable (outpatient ENT follow up for chronic 1.5cm pedunculated polypoid soft tissue ) Unspecified dementia, stable, needs placement -Prozac per Psych eval for sexual inappropriateness. 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 neuropathic pain--neurontin copd, - albuterol prn htn - amldoipine, hctz hld - statin left knee pain -uric acid nl -xray:1. No acute fracture or dislocation is seen. 2. Persistent left tibiofemoral joint osteoarthritis, most severe in the medial compartment. Interval appearance of genu varus deformity. 3. Left suprapatellar fat pad shows bulging increase in density. -pain likely from above -tylenol and tramadol for pain -ortho recommends conservative managament, PT -tramadol and tylenol fo pain, topical med dvt prophylaxis - lovenox dnr/dni reason for continued hospitalization:dispo planning periodic lab check . Quality Stroke Does the patient have a stroke diagnosis?: No VTE Prior VTE?: No VTE Risk Level:: Medical - moderate - high VTE Device Contraindication: Treatment Not Indicated VTE Drug Contraindication: N/A - Med Ordered
[2024-01-01] MEDS: Acetaminophen 325 MG TABLET 650 MG PO (15:12)
[2024-01-01 16:00] VITALS: BP 127/51; PULSE 60; RESP 20; TEMP 36.2; O2SAT 98
[2024-01-01 19:48] VITALS: BP 133/64; PULSE 66; RESP 20; TEMP 36.5; O2SAT 96
[2024-01-01] MEDS: Montelukast Sodium 10 MG TABLET PO (20:12)
[2024-01-01] MEDS: traZODone HCL 50 MG TABLET PO (20:12)
[2024-01-01] MEDS: Enoxaparin Sodium 40 MG/0.4 ML SYRINGE SUBCUT (20:12)
[2024-01-01] MEDS: Atorvastatin Calcium 20 MG TABLET PO (20:12)
[2024-01-02] MEDS: Melatonin 3 MG TABLET 6 MG PO (00:25)
[2024-01-02 03:56] VITALS: BP 126/84; PULSE 65; RESP 20; TEMP 36.4; O2SAT 96
[2024-01-02 07:53] VITALS: BP 117/56; PULSE 62; RESP 20; TEMP 36.1; O2SAT 99
[2024-01-02 08:07] VITALS: RESP 16; O2SAT 95
[2024-01-02] MEDS: Fluticasone/Umeclidinium/Vilanterol 100/62.5/25 BLST.W.DEV 1 PUFF INHALE (08:07)
[2024-01-02] MEDS: hydroCHLOROthiazide 12.5 MG TABLET PO (09:39)
[2024-01-02] MEDS: Gabapentin 100 MG CAPSULE PO (09:39)
[2024-01-02] MEDS: Aspirin Enteric Coated 81 MG TABLET.DR PO (09:39)
[2024-01-02] MEDS: FLUoxetine HCl 20 MG CAPSULE PO (09:39)
[2024-01-02] MEDS: amLODIPine Besylate 5 MG TABLET PO (09:40)
[2024-01-02] MEDS: Cholecalciferol (Vitamin D3) 25 MCG TABLET PO (09:40)
[2024-01-02] MEDS: Acetaminophen 325 MG TABLET 650 MG PO ×2 (09:43→19:23)
--- NOTE | 2024-01-02 11:11 | MHC.CM.PN ---
Requested updates sent to [facility]
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
[2024-01-02 19:40] VITALS: BP 152/69; PULSE 67; RESP 18; TEMP 36.3; O2SAT 97
[2024-01-02] MEDS: Montelukast Sodium 10 MG TABLET PO (20:25)
[2024-01-02] MEDS: Enoxaparin Sodium 40 MG/0.4 ML SYRINGE SUBCUT (20:25)
[2024-01-02] MEDS: traZODone HCL 50 MG TABLET PO (20:25)
[2024-01-02] MEDS: Atorvastatin Calcium 20 MG TABLET PO (20:25)
[2024-01-02 23:26] VITALS: BP 123/62; PULSE 64; RESP 20; TEMP 36.9; O2SAT 96
[2024-01-03] MEDS: Fluticasone/Umeclidinium/Vilanterol 100/62.5/25 BLST.W.DEV 1 PUFF INHALE (07:26)
[2024-01-03 07:27] VITALS: PULSE 64; RESP 18; O2SAT 96
[2024-01-03 08:00] VITALS: BP 119/53; PULSE 70; RESP 20; TEMP 36.1; O2SAT 97
[2024-01-03] MEDS: Cholecalciferol (Vitamin D3) 25 MCG TABLET PO (09:25)
[2024-01-03] MEDS: Acetaminophen 325 MG TABLET 650 MG PO (09:25)
[2024-01-03] MEDS: hydroCHLOROthiazide 12.5 MG TABLET PO (09:26)
[2024-01-03] MEDS: FLUoxetine HCl 20 MG CAPSULE PO (09:26)
[2024-01-03] MEDS: Aspirin Enteric Coated 81 MG TABLET.DR PO (09:26)
[2024-01-03] MEDS: Gabapentin 100 MG CAPSULE PO (09:27)
[2024-01-03] MEDS: amLODIPine Besylate 5 MG TABLET PO (09:27)
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
[2024-01-03] MEDS: traMADoL HCL 50 MG TABLET 25 MG PO ×2 (11:13→22:01)
[2024-01-03 15:26] VITALS: BP 115/60; PULSE 61; RESP 18; TEMP 36.4; O2SAT 97
[2024-01-03 19:56] VITALS: BP 135/73; PULSE 65; RESP 20; TEMP 36.9; O2SAT 95
[2024-01-03] MEDS: Enoxaparin Sodium 40 MG/0.4 ML SYRINGE SUBCUT (21:57)
[2024-01-03] MEDS: Atorvastatin Calcium 20 MG TABLET PO (21:57)
[2024-01-03] MEDS: Montelukast Sodium 10 MG TABLET PO (21:57)
[2024-01-03] MEDS: traZODone HCL 50 MG TABLET PO (21:57)
[2024-01-04 07:08] VITALS: BP 153/67; PULSE 60; RESP 17; TEMP 36.1; O2SAT 97
[2024-01-04 07:10] VITALS: PULSE 60; RESP 16; O2SAT 97
[2024-01-04] MEDS: Fluticasone/Umeclidinium/Vilanterol 100/62.5/25 BLST.W.DEV 1 PUFF INHALE (07:10)
[2024-01-04 09:02] VITALS: BP 142/68
[2024-01-04] MEDS: FLUoxetine HCl 20 MG CAPSULE PO (09:02)
[2024-01-04] MEDS: hydroCHLOROthiazide 12.5 MG TABLET PO (09:02)
[2024-01-04] MEDS: Gabapentin 100 MG CAPSULE PO (09:02)
[2024-01-04] MEDS: traMADoL HCL 50 MG TABLET 25 MG PO (09:02)
[2024-01-04] MEDS: Cholecalciferol (Vitamin D3) 25 MCG TABLET PO (09:02)
[2024-01-04 09:03] VITALS: BP 142/68
[2024-01-04] MEDS: Aspirin Enteric Coated 81 MG TABLET.DR PO (09:03)
[2024-01-04] MEDS: amLODIPine Besylate 5 MG TABLET PO (09:03)
[2024-01-04 15:35] VITALS: BP 123/59; PULSE 56; RESP 18; TEMP 36.3; O2SAT 96
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
[2024-01-04 19:25] VITALS: BP 115/56; PULSE 64; RESP 18; TEMP 36.7; O2SAT 98
[2024-01-04] MEDS: Atorvastatin Calcium 20 MG TABLET PO (20:57)
[2024-01-04] MEDS: Enoxaparin Sodium 40 MG/0.4 ML SYRINGE SUBCUT (20:57)
[2024-01-04] MEDS: Montelukast Sodium 10 MG TABLET PO (20:57)
[2024-01-04] MEDS: traZODone HCL 50 MG TABLET PO (20:57)
[2024-01-05 04:00] VITALS: BP 136/66; PULSE 63; RESP 18; TEMP 36.4; O2SAT 97
[2024-01-05] MEDS: traMADoL HCL 50 MG TABLET 25 MG PO ×2 (05:31→11:39)
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
[2024-01-05 07:51] VITALS: BP 128/61; PULSE 62; RESP 16; TEMP 36.4; O2SAT 95
[2024-01-05 07:58] VITALS: PULSE 76; RESP 12; O2SAT 95
[2024-01-05] MEDS: Fluticasone/Umeclidinium/Vilanterol 100/62.5/25 BLST.W.DEV 1 PUFF INHALE (07:58)
[2024-01-05] MEDS: Gabapentin 100 MG CAPSULE PO (08:04)
[2024-01-05] MEDS: Cholecalciferol (Vitamin D3) 25 MCG TABLET PO (08:04)
[2024-01-05] MEDS: Aspirin Enteric Coated 81 MG TABLET.DR PO (08:04)
[2024-01-05] MEDS: hydroCHLOROthiazide 12.5 MG TABLET PO (08:04)
[2024-01-05] MEDS: amLODIPine Besylate 5 MG TABLET PO (08:05)
[2024-01-05] MEDS: FLUoxetine HCl 20 MG CAPSULE PO (08:11)
[2024-01-05 16:00] VITALS: BP 126/56; PULSE 58; RESP 12; TEMP 36.3; O2SAT 97
[2024-01-05 19:11] VITALS: BP 133/76; PULSE 68; RESP 18; TEMP 36.5; O2SAT 96
[2024-01-05] MEDS: Enoxaparin Sodium 40 MG/0.4 ML SYRINGE SUBCUT (21:03)
[2024-01-05] MEDS: traZODone HCL 50 MG TABLET PO (21:03)
[2024-01-05] MEDS: Atorvastatin Calcium 20 MG TABLET PO (21:03)
[2024-01-05] MEDS: Montelukast Sodium 10 MG TABLET PO (21:03)
[2024-01-05 23:28] VITALS: BP 123/57; PULSE 72; RESP 18; TEMP 36.6; O2SAT 96
[2024-01-06 03:39] VITALS: BP 149/69; PULSE 67; RESP 18; TEMP 36.4; O2SAT 95
[2024-01-06] MEDS: traMADoL HCL 50 MG TABLET 25 MG PO ×2 (04:21→14:52)
--- NOTE | 2024-01-06 05:58 | P.PNIM_ITS ---
Subjective Subjective Date of Service: 01/06/24 Interval History: Slept well, no new issues, vitals stable Physical Exam 2 Vital Signs: Vital Signs: Last Vital Signs Temp 97.5 F 01/06/24 03:39 Pulse 67 01/06/24 03:39 Resp 18 01/06/24 03:39 BP 149/69 H 01/06/24 03:39 Pulse Ox 95 01/06/24 03:39 O2 Del Method Room Air 01/06/24 03:39 O2 Flow Rate 3 12/22/23 20:00 BMI result Body Mass Index 28.0 Constitutional : comfortable, no distress Cardiovascular : no JVP, no lower extremity edema Respiratory : bilateral chest movement, not in resp distress Gastrointestinal: soft, lax, Non tender Skin : Warm, Dry MSK: swelling int he left knee, no redness, no tenderness Neurological : Alert & oriented to self , No focal deficit Objective Data Active Medications Acetaminophen (Acetaminophen 325 Mg Tablet) 650 mg PO Q6H PRN PRN Reason: Pain, Mild (Pain Scale 1-3), fever or headache Last Admin: 01/03/24 09:25 Dose: 650 mg Documented By: JUANITO Albuterol Sulfate (Albuterol Sulfate 90 Mcg 8 Gm Inhaler) 2 puff INHALE RQ6H PRN PRN Reason: sob Amlodipine Besylate (Amlodipine Besylate 5 Mg Tablet) 5 mg PO DAILY [facility]; Protocol Last Admin: 01/05/24 08:05 Dose: 5 mg Documented By: KEITH Artificial Tears (Artificial Tears 15 Ml Drops) 2 drop EYE-BOTH Q4H PRN PRN Reason: Dry Eyes Last Admin: 12/21/23 03:08 Dose: 2 drop Documented By: YOMI Aspirin (Aspirin Enteric Coated 81 Mg Tablet.) 81 mg PO DAILY [facility] Last Admin: 01/05/24 08:04 Dose: 81 mg Documented By: KEITH Atorvastatin Calcium (Atorvastatin Calcium 20 Mg Tablet) 20 mg PO BEDTIME [facility] Last Admin: 01/05/24 21:03 Dose: 20 mg Documented By: ANASTAISA Calcium Carbonate (Calcium Carbonate 750 Mg Tab.Chew) 750 mg PO Q4H PRN PRN Reason: Heartburn Enoxaparin Sodium (Enoxaparin Sodium 40 Mg/0.4 Ml Syringe) 40 mg SUBCUT Q24H [facility] Last Admin: 01/05/24 21:03 Dose: 40 mg Documented By: ANASTASIA Fluoxetine HCl (Fluoxetine Hcl 20 Mg Capsule) 20 mg PO DAILY [facility] Last Admin: 01/05/24 08:11 Dose: 20 mg Documented By: KEITH Fluticasone/Umeclidinium/Vilanterol (Fluticasone/Umeclidinium/Vilanterol 100/62.5/25 Blst.W.Dev) 1 puff INHALE RDAILY [facility] Last Admin: 01/05/24 07:58 Dose: 1 puff Documented By: DIANNA Gabapentin (Gabapentin 100 Mg Capsule) 100 mg PO DAILY [facility] Last Admin: 01/05/24 08:04 Dose: 100 mg Documented By: KEITH Hydrochlorothiazide (Hydrochlorothiazide 12.5 Mg Tablet) 12.5 mg PO DAILY [facility]; Protocol Last Admin: 01/05/24 08:04 Dose: 12.5 mg Documented By: KEITH Magnesium Hydroxide (Milk Of Magnesia 30 Ml Oral.Susp) 30 ml PO DAILY PRN PRN Reason: Constipation Last Admin: 12/08/23 08:25 Dose: 30 ml Documented By: AUDI Melatonin (Melatonin 3 Mg Tablet) 6 mg PO BEDTIME PRN PRN Reason: Insomnia Last Admin: 01/02/24 00:25 Dose: 6 mg Documented By: NA Montelukast Sodium (Montelukast Sodium 10 Mg Tablet) 10 mg PO BEDTIME [facility] Last Admin: 01/05/24 21:03 Dose: 10 mg Documented By: ANASTASIA Tramadol HCl (Tramadol Hcl 50 Mg Tablet) 25 mg PO Q6H PRN PRN Reason: Pain, Severe (Pain Scale 7-10) Last Admin: 01/06/24 04:21 Dose: 25 mg Documented By: ANASTASIA Trazodone HCl (Trazodone Hcl 50 Mg Tablet) 50 mg PO BEDTIME [facility] Last Admin: 01/05/24 21:03 Dose: 50 mg Documented By: ANASTASIA Vitamin D (Cholecalciferol (Vitamin D3) 25 Mcg Tablet) 25 mcg PO DAILY [facility] Last Admin: 01/05/24 08:04 Dose: 25 mcg Documented By: KEITH Labs 12/31/23 07:06 12/31/23 07:06 Assessment and Plan (1) Cognitive disorder: Status: Acute Assessment and Plan: 83M PMH copd, htn, hld, dementia unspecified, prostate ca, sent in from [facility] after inappropriately interaction with another female resident. No new issues, Fall on 11/26 , no injuries, CT Head unremarkable (outpatient ENT follow up for chronic 1.5cm pedunculated polypoid soft tissue ) Unspecified dementia, stable, needs placement -Prozac per Psych eval for sexual inappropriateness. 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 No acute fracture or dislocation is seen. 2. Persistent left tibiofemoral joint osteoarthritis, most severe in the medial compartment. Interval appearance of genu varus deformity. 3. Left suprapatellar fat pad shows bulging increase in density. -pain likely from above -tylenol and tramadol for pain -ortho recommends conservative managament, PT -tramadol and tylenol fo pain, topical med dvt prophylaxis - lovenox dnr/dni reason for continued hospitalization:dispo planning periodic lab check, last bmp, cbc 12/30, repeat on tuesday out of bed to chair Quality Stroke Does the patient have a stroke diagnosis?: No VTE Prior VTE?: No VTE Risk Level:: Medical - moderate - high VTE Device Contraindication: Treatment Not Indicated VTE Drug Contraindication: N/A - Med Ordered
[2024-01-06 07:56] VITALS: BP 142/65; PULSE 62; RESP 16; TEMP 36.6; O2SAT 97
[2024-01-06] MEDS: FLUoxetine HCl 20 MG CAPSULE PO ×3 (09:33→09:37)
[2024-01-06] MEDS: Aspirin Enteric Coated 81 MG TABLET.DR PO (09:33)
[2024-01-06] MEDS: Gabapentin 100 MG CAPSULE PO (09:33)
[2024-01-06] MEDS: Cholecalciferol (Vitamin D3) 25 MCG TABLET PO (09:33)
[2024-01-06 09:36] VITALS: BP 150/65; PULSE 71
[2024-01-06] MEDS: hydroCHLOROthiazide 12.5 MG TABLET PO (09:38)
[2024-01-06] MEDS: amLODIPine Besylate 5 MG TABLET PO (09:38)
--- NOTE | 2024-01-06 11:52 | MHC.CM.PN ---
Patient continues to await LTC placement. [facility] is reviewing clinicals, but has noted even if clinically accepted there is no open bed at this time. Dee from [facility] updated. CM will continue to follow.
--- NOTE | 2024-01-06 12:04 | PC.NURSE ---
patient pleasant this morning and cooperative
[2024-01-06 15:56] VITALS: BP 143/67; PULSE 71; RESP 16; TEMP 36.3; O2SAT 96
[2024-01-06] MEDS: traZODone HCL 50 MG TABLET PO (21:15)
[2024-01-06] MEDS: Montelukast Sodium 10 MG TABLET PO (21:15)
[2024-01-06] MEDS: Enoxaparin Sodium 40 MG/0.4 ML SYRINGE SUBCUT (21:15)
[2024-01-06] MEDS: Atorvastatin Calcium 20 MG TABLET PO (21:15)
[2024-01-06 21:18] VITALS: BP 146/67; PULSE 69; RESP 20; TEMP 36.7; O2SAT 97
[2024-01-07 04:00] VITALS: BP 112/54; PULSE 61; RESP 15; TEMP 36.4; O2SAT 99
[2024-01-07] MEDS: traMADoL HCL 50 MG TABLET 25 MG PO ×3 (06:35→19:46)
[2024-01-07 08:00] VITALS: BP 121/66; PULSE 82; RESP 16; TEMP 36.4; O2SAT 94
[2024-01-07] MEDS: hydroCHLOROthiazide 12.5 MG TABLET PO (08:43)
[2024-01-07] MEDS: amLODIPine Besylate 5 MG TABLET PO (08:43)
[2024-01-07] MEDS: Aspirin Enteric Coated 81 MG TABLET.DR PO (08:43)
[2024-01-07] MEDS: Gabapentin 100 MG CAPSULE PO (08:43)
[2024-01-07] MEDS: Cholecalciferol (Vitamin D3) 25 MCG TABLET PO (08:44)
[2024-01-07] MEDS: FLUoxetine HCl 20 MG CAPSULE PO (08:48)
--- NOTE | 2024-01-07 11:09 | HO.PM.IMPN ---
Subjective Subjective Date of Service: 01/07/24 Interval History: No new issues, doing well Physical Exam Vital Signs: Vital Signs: Last Vital Signs Temp 97.6 F 01/07/24 08:00 Pulse 82 01/07/24 08:00 Resp 16 01/07/24 08:00 BP 121/66 01/07/24 08:00 Pulse Ox 94 01/07/24 08:00 O2 Del Method Room Air 01/07/24 08:00 O2 Flow Rate 3 12/22/23 20:00 BMI result Body Mass Index 28.0 Const: Other: Constitutional : resting comfortably Cardiovascular : no JVP, no lower extremity edema Respiratory : bilateral chest movement, not in resp distress Gastrointestinal: soft, lax, Non tender Skin : Warm, Dry MSK: swelling int he left knee, no redness, no tenderness Neurological : Alert & oriented to self , No focal deficit Objective Data Active Medications Acetaminophen (Acetaminophen 325 Mg Tablet) 650 mg PO Q6H PRN PRN Reason: Pain, Mild (Pain Scale 1-3), fever or headache Last Admin: 01/03/24 09:25 Dose: 650 mg Documented By: JUANITO Albuterol Sulfate (Albuterol Sulfate 90 Mcg 8 Gm Inhaler) 2 puff INHALE RQ6H PRN PRN Reason: sob Amlodipine Besylate (Amlodipine Besylate 5 Mg Tablet) 5 mg PO DAILY [facility]; Protocol Last Admin: 01/07/24 08:43 Dose: 5 mg Documented By: DARRYL Artificial Tears (Artificial Tears 15 Ml Drops) 2 drop EYE-BOTH Q4H PRN PRN Reason: Dry Eyes Last Admin: 12/21/23 03:08 Dose: 2 drop Documented By: YOMI Aspirin (Aspirin Enteric Coated 81 Mg Tablet.) 81 mg PO DAILY [facility] Last Admin: 01/07/24 08:43 Dose: 81 mg Documented By: DARRYL Atorvastatin Calcium (Atorvastatin Calcium 20 Mg Tablet) 20 mg PO BEDTIME [facility] Last Admin: 01/06/24 21:15 Dose: 20 mg Documented By: LYSZ Calcium Carbonate (Calcium Carbonate 750 Mg Tab.Chew) 750 mg PO Q4H PRN PRN Reason: Heartburn Enoxaparin Sodium (Enoxaparin Sodium 40 Mg/0.4 Ml Syringe) 40 mg SUBCUT Q24H [facility] Last Admin: 01/06/24 21:15 Dose: 40 mg Documented By: REANNA Fluoxetine HCl (Fluoxetine Hcl 20 Mg Capsule) 20 mg PO DAILY [facility] Last Admin: 01/06/24 09:37 Dose: 20 mg Documented By: JAZMINE Fluticasone/Umeclidinium/Vilanterol (Fluticasone/Umeclidinium/Vilanterol 100/62.5/25 Blst.W.Dev) 1 puff INHALE RDAILY [facility] Last Admin: 01/07/24 08:17 Dose: Not Given Documented By: DIANNA Non-Admin Reason: pharm called Gabapentin (Gabapentin 100 Mg Capsule) 100 mg PO DAILY [facility] Last Admin: 01/07/24 08:43 Dose: 100 mg Documented By: DARRYL Hydrochlorothiazide (Hydrochlorothiazide 12.5 Mg Tablet) 12.5 mg PO DAILY [facility]; Protocol Last Admin: 01/07/24 08:43 Dose: 12.5 mg Documented By: DARRYL Magnesium Hydroxide (Milk Of Magnesia 30 Ml Oral.Susp) 30 ml PO DAILY PRN PRN Reason: Constipation Last Admin: 12/08/23 08:25 Dose: 30 ml Documented By: AUDI Melatonin (Melatonin 3 Mg Tablet) 6 mg PO BEDTIME PRN PRN Reason: Insomnia Last Admin: 01/02/24 00:25 Dose: 6 mg Documented By: NA Montelukast Sodium (Montelukast Sodium 10 Mg Tablet) 10 mg PO BEDTIME [facility] Last Admin: 01/06/24 21:15 Dose: 10 mg Documented By: REANNA Tramadol HCl (Tramadol Hcl 50 Mg Tablet) 25 mg PO Q6H PRN PRN Reason: Pain, Severe (Pain Scale 7-10) Last Admin: 01/07/24 06:35 Dose: 25 mg Documented By: REANNA Trazodone HCl (Trazodone Hcl 50 Mg Tablet) 50 mg PO BEDTIME [facility] Last Admin: 01/06/24 21:15 Dose: 50 mg Documented By: REANNA Vitamin D (Cholecalciferol (Vitamin D3) 25 Mcg Tablet) 25 mcg PO DAILY [facility] Last Admin: 01/07/24 08:44 Dose: 25 mcg Documented By: DARRYL Labs 12/31/23 07:06 12/31/23 07:06 Assessment and Plan (1) Cognitive disorder: Status: Acute Assessment and Plan: 83M PMH copd, htn, hld, dementia unspecified, prostate ca, [facility]ately interaction with another female resident. No new issues, Fall on 11/26 , no injuries, CT Head unremarkable (outpatient ENT follow up for chronic 1.5cm pedunculated polypoid soft tissue ) Unspecified dementia, stable, needs placement -Prozac per Psych eval for sexual inappropriateness. 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 No acute fracture or dislocation is seen. 2. Persistent left tibiofemoral joint osteoarthritis, most severe in the medial compartment. Interval appearance of genu varus deformity. 3. Left suprapatellar fat pad shows bulging increase in density. -pain likely from above -tylenol and tramadol for pain -ortho recommends conservative managament, PT -tramadol and tylenol fo pain, topical med dvt prophylaxis - lovenox dnr/dni reason for continued hospitalization:dispo planning periodic lab check, last bmp, cbc 12/30, repeat on tuesday out of bed to chair, check routine labs Quality Stroke Does the patient have a stroke diagnosis?: No VTE Prior VTE?: No VTE Risk Level:: Medical - moderate - high VTE Device Contraindication: Treatment Not Indicated VTE Drug Contraindication: N/A - Med Ordered
[2024-01-07] MEDS: Acetaminophen 325 MG TABLET 650 MG PO ×2 (15:46→23:16)
[2024-01-07 16:00] VITALS: BP 128/63; PULSE 59; RESP 20; TEMP 36.6; O2SAT 96
[2024-01-07 19:40] VITALS: BP 118/58; PULSE 62; RESP 20; TEMP 36.7; O2SAT 97
[2024-01-07] MEDS: Atorvastatin Calcium 20 MG TABLET PO (20:35)
[2024-01-07] MEDS: traZODone HCL 50 MG TABLET PO (20:35)
[2024-01-07] MEDS: Enoxaparin Sodium 40 MG/0.4 ML SYRINGE SUBCUT (20:35)
[2024-01-07] MEDS: Montelukast Sodium 10 MG TABLET PO (20:35)
[2024-01-08 03:45] VITALS: BP 126/60; PULSE 72; RESP 18; TEMP 36.1; O2SAT 97
[2024-01-08 07:28] VITALS: BP 130/60; PULSE 69; RESP 17; TEMP 36.2; O2SAT 95
[2024-01-08] MEDS: Gabapentin 100 MG CAPSULE PO (07:37)
[2024-01-08] MEDS: Cholecalciferol (Vitamin D3) 25 MCG TABLET PO (07:37)
[2024-01-08] MEDS: Aspirin Enteric Coated 81 MG TABLET.DR PO (07:37)
[2024-01-08] MEDS: FLUoxetine HCl 20 MG CAPSULE PO (07:37)
[2024-01-08] MEDS: hydroCHLOROthiazide 12.5 MG TABLET PO (07:37)
[2024-01-08] MEDS: amLODIPine Besylate 5 MG TABLET PO (07:38)
[2024-01-08] MEDS: traMADoL HCL 50 MG TABLET 25 MG PO (07:38)
[2024-01-08 07:57] VITALS: PULSE 88; RESP 12; O2SAT 92
[2024-01-08] MEDS: Fluticasone/Umeclidinium/Vilanterol 100/62.5/25 BLST.W.DEV 1 PUFF INHALE (07:57)
--- NOTE | 2024-01-08 09:46 | HO.PM.IMPN ---
Subjective Subjective Date of Service: 01/09/24 Interval History: no new issues Physical Exam Vital Signs: Vital Signs: Last Vital Signs Temp 97.1 F 01/08/24 07:28 Pulse 88 01/08/24 07:57 Resp 12 01/08/24 07:57 BP 130/60 01/08/24 07:28 Pulse Ox 95 01/08/24 07:28 O2 Del Method Room Air 01/08/24 07:28 O2 Flow Rate 3 12/22/23 20:00 BMI result Body Mass Index 28.0 Const: Other: Constitutional : resting comfortably Cardiovascular : no JVP, no lower extremity edema Respiratory : bilateral chest movement, not in resp distress Gastrointestinal: soft, lax, Non tender Skin : Warm, Dry MSK: swelling int he left knee, no redness, no tenderness Neurological : Alert & oriented to self , No focal deficit Objective Data Active Medications Acetaminophen (Acetaminophen 325 Mg Tablet) 650 mg PO Q6H PRN PRN Reason: Pain, Mild (Pain Scale 1-3), fever or headache Last Admin: 01/07/24 23:16 Dose: 650 mg Documented By: JESSICA Albuterol Sulfate (Albuterol Sulfate 90 Mcg 8 Gm Inhaler) 2 puff INHALE RQ6H PRN PRN Reason: sob Amlodipine Besylate (Amlodipine Besylate 5 Mg Tablet) 5 mg PO DAILY [facility]; Protocol Last Admin: 01/08/24 07:38 Dose: 5 mg Documented By: LEVY Artificial Tears (Artificial Tears 15 Ml Drops) 2 drop EYE-BOTH Q4H PRN PRN Reason: Dry Eyes Last Admin: 12/21/23 03:08 Dose: 2 drop Documented By: YOMI Aspirin (Aspirin Enteric Coated 81 Mg Tablet.Dr) 81 mg PO DAILY [facility] Last Admin: 01/08/24 07:37 Dose: 81 mg Documented By: LEVY Atorvastatin Calcium (Atorvastatin Calcium 20 Mg Tablet) 20 mg PO BEDTIME [facility] Last Admin: 01/07/24 20:35 Dose: 20 mg Documented By: JESSICA Calcium Carbonate (Calcium Carbonate 750 Mg Tab.Chew) 750 mg PO Q4H PRN PRN Reason: Heartburn Enoxaparin Sodium (Enoxaparin Sodium 40 Mg/0.4 Ml Syringe) 40 mg SUBCUT Q24H [facility] Last Admin: 01/07/24 20:35 Dose: 40 mg Documented By: JESSICA Fluoxetine HCl (Fluoxetine Hcl 20 Mg Capsule) 20 mg PO DAILY [facility] Last Admin: 01/08/24 07:37 Dose: 20 mg Documented By: LEVY Fluticasone/Umeclidinium/Vilanterol (Fluticasone/Umeclidinium/Vilanterol 100/62.5/25 Blst.W.Dev) 1 puff INHALE RDAILY [facility] Last Admin: 01/08/24 07:57 Dose: 1 puff Documented By: DIANNA Gabapentin (Gabapentin 100 Mg Capsule) 100 mg PO DAILY [facility] Last Admin: 01/08/24 07:37 Dose: 100 mg Documented By: LEVY Hydrochlorothiazide (Hydrochlorothiazide 12.5 Mg Tablet) 12.5 mg PO DAILY [facility]; Protocol Last Admin: 01/08/24 07:37 Dose: 12.5 mg Documented By: LEVY Magnesium Hydroxide (Milk Of Magnesia 30 Ml Oral.Susp) 30 ml PO DAILY PRN PRN Reason: Constipation Last Admin: 12/08/23 08:25 Dose: 30 ml Documented By: AUDI Melatonin (Melatonin 3 Mg Tablet) 6 mg PO BEDTIME PRN PRN Reason: Insomnia Last Admin: 01/02/24 00:25 Dose: 6 mg Documented By: NA Montelukast Sodium (Montelukast Sodium 10 Mg Tablet) 10 mg PO BEDTIME [facility] Last Admin: 01/07/24 20:35 Dose: 10 mg Documented By: JESSICA Tramadol HCl (Tramadol Hcl 50 Mg Tablet) 25 mg PO Q6H PRN PRN Reason: Pain, Severe (Pain Scale 7-10) Last Admin: 01/08/24 07:38 Dose: 25 mg Documented By: LEVY Trazodone HCl (Trazodone Hcl 50 Mg Tablet) 50 mg PO BEDTIME [facility] Last Admin: 01/07/24 20:35 Dose: 50 mg Documented By: JESSICA Vitamin D (Cholecalciferol (Vitamin D3) 25 Mcg Tablet) 25 mcg PO DAILY [facility] Last Admin: 01/08/24 07:37 Dose: 25 mcg Documented By: LEVY Labs 01/08/24 10:49 01/08/24 10:49 Assessment and Plan (1) Cognitive disorder: Status: Acute Assessment and Plan: 83M PMH copd, htn, hld, dementia unspecified, prostate ca, [facility] interaction with another female resident. No new issues, Fall on 11/26 , no injuries, CT Head unremarkable (outpatient ENT follow up for chronic 1.5cm pedunculated polypoid soft tissue ) Unspecified dementia, stable, needs placement -Prozac per Psych eval for sexual inappropriateness. 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 No acute fracture or dislocation is seen. 2. Persistent left tibiofemoral joint osteoarthritis, most severe in the medial compartment. Interval appearance of genu varus deformity. 3. Left suprapatellar fat pad shows bulging increase in density. -pain likely from above -tylenol and tramadol for pain -ortho recommends conservative managament, PT -tramadol and tylenol fo pain, topical med dvt prophylaxis - lovenox dnr/dni reason for continued hospitalization:dispo planning check routine labs 01/07, cbc, bmp unremarkable. out of bed to chair, check routine labs Quality Stroke Does the patient have a stroke diagnosis?: No VTE Prior VTE?: No VTE Risk Level:: Medical - moderate - high VTE Device Contraindication: Treatment Not Indicated VTE Drug Contraindication: N/A - Med Ordered
[2024-01-08 11:07] LABS: Hematocrit 39.8 % (42.0-52.0); Hemoglobin 14.1 g/dl (14.0-18.0); Mean Corpuscular HGB Conc 35.4 g/dl (31.0-36.0); Mean Corpuscular Hemoglobin 30.1 pg (27.0-33.0); Mean Corpuscular Volume 84.9 fL (80.0-98.0); Platelet Count 291 X10*3/uL (160-400); Red Blood Count 4.69 X10*6/uL (4.60-5.80); White Blood Count 8.2 X10*3/uL (4.8-10.8)
[2024-01-08 11:28] LABS: Alanine Aminotransferase 14 U/L (0-40); Albumin Level 3.4 g/dL (3.5-5.0); Alkaline Phosphatase 121 U/L (39-117); Anion Gap 13 (12-20); Aspartate Amino Transferase 18 U/L (5-37); Bilirubin Direct 0.2 mg/dL (0.0-0.5); Bilirubin Total 0.5 mg/dL (0.0-1.0); Blood Urea Nitrogen 13 mg/dL (9-16); Calcium 8.9 mg/dL (8.4-10.2); Carbon Dioxide 28 mmol/L (22-29); Chloride 98 mmol/L (96-108); Creatinine Clr Calc Pharmacy 67.9; Estimated Glomerular Filt Rate > 60; Glucose Random 104 mg/dL (60-115); Magnesium 2.1 mg/dL (1.6-2.6); Phosphorus 2.9 mg/dL (2.7-4.5); Potassium 3.6 mmol/L (3.3-5.1); Sodium 135 mmol/L (135-145); Total Protein 6.8 g/dL (6.5-8.0)
[2024-01-08 15:22] VITALS: BP 139/61; PULSE 67; RESP 18; TEMP 36.2; O2SAT 95
--- NOTE | 2024-01-08 17:47 | PC.NURSE ---
placement patient, here for sexual behaviors at [facility] toward women, Today he tolerated care from staff with no issues.
[2024-01-08] MEDS: Montelukast Sodium 10 MG TABLET PO (19:42)
[2024-01-08] MEDS: Atorvastatin Calcium 20 MG TABLET PO (19:42)
[2024-01-08] MEDS: Enoxaparin Sodium 40 MG/0.4 ML SYRINGE SUBCUT (19:43)
[2024-01-08] MEDS: traZODone HCL 50 MG TABLET PO (19:43)
[2024-01-08 19:50] VITALS: BP 130/66; PULSE 75; RESP 16; TEMP 36.5; O2SAT 94
[2024-01-09 03:38] VITALS: BP 130/64; PULSE 61; RESP 16; TEMP 36.4; O2SAT 96
[2024-01-09 07:22] VITALS: BP 145/64; PULSE 60; RESP 16; TEMP 36.6; O2SAT 94
[2024-01-09] MEDS: Fluticasone/Umeclidinium/Vilanterol 100/62.5/25 BLST.W.DEV 1 PUFF INHALE (07:47)
[2024-01-09 07:48] VITALS: PULSE 74; RESP 16; O2SAT 95
[2024-01-09] MEDS: Gabapentin 100 MG CAPSULE PO (07:51)
[2024-01-09] MEDS: FLUoxetine HCl 20 MG CAPSULE PO (07:51)
[2024-01-09] MEDS: hydroCHLOROthiazide 12.5 MG TABLET PO (07:51)
[2024-01-09] MEDS: Aspirin Enteric Coated 81 MG TABLET.DR PO (07:51)
[2024-01-09] MEDS: Cholecalciferol (Vitamin D3) 25 MCG TABLET PO (07:51)
[2024-01-09] MEDS: amLODIPine Besylate 5 MG TABLET PO (07:51)
[2024-01-09] MEDS: traMADoL HCL 50 MG TABLET 25 MG PO ×2 (07:54→17:36)
--- NOTE | 2024-01-09 11:04 | MHC.CM.PN ---
Patient awaiting LTC placement. No bed offers at this time.
[2024-01-09 15:16] VITALS: BP 161/66; PULSE 61; RESP 18; TEMP 36; O2SAT 96
[2024-01-09 19:14] VITALS: BP 129/60; PULSE 69; RESP 18; TEMP 36.4; O2SAT 97
[2024-01-09] MEDS: traZODone HCL 50 MG TABLET PO (21:18)
[2024-01-09] MEDS: Montelukast Sodium 10 MG TABLET PO (21:18)
[2024-01-09] MEDS: Atorvastatin Calcium 20 MG TABLET PO (21:18)
[2024-01-09] MEDS: Enoxaparin Sodium 40 MG/0.4 ML SYRINGE SUBCUT (21:18)
[2024-01-10] MEDS: traMADoL HCL 50 MG TABLET 25 MG PO ×3 (00:25→17:03)
[2024-01-10 03:38] VITALS: BP 114/57; PULSE 64; RESP 18; TEMP 36.4; O2SAT 96
[2024-01-10 07:32] VITALS: BP 149/67; PULSE 63; RESP 16; TEMP 36.3; O2SAT 95
[2024-01-10 08:20] VITALS: BP 149/67
[2024-01-10] MEDS: Aspirin Enteric Coated 81 MG TABLET.DR PO (08:20)
[2024-01-10] MEDS: FLUoxetine HCl 20 MG CAPSULE PO (08:20)
[2024-01-10] MEDS: Gabapentin 100 MG CAPSULE PO (08:20)
[2024-01-10] MEDS: hydroCHLOROthiazide 12.5 MG TABLET PO (08:20)
[2024-01-10] MEDS: Cholecalciferol (Vitamin D3) 25 MCG TABLET PO (08:20)
[2024-01-10] MEDS: amLODIPine Besylate 5 MG TABLET PO (08:20)
[2024-01-10] MEDS: Fluticasone/Umeclidinium/Vilanterol 100/62.5/25 BLST.W.DEV 1 PUFF INHALE (08:53)
[2024-01-10 08:54] VITALS: PULSE 72; RESP 16
[2024-01-10] MEDS: Acetaminophen 325 MG TABLET 650 MG PO (09:16)
--- NOTE | 2024-01-10 14:25 | HO.PM.IMPN ---
Subjective Subjective Date of Service: 01/10/24 Interval History: Unspecified dementia Review of Systems seems no new c/o Physical Exam Vital Signs: Vital Signs: Last Vital Signs Temp 97.4 F 01/10/24 07:32 Pulse 72 01/10/24 08:54 Resp 16 01/10/24 08:54 BP 149/67 H 01/10/24 08:20 Pulse Ox 95 01/10/24 07:32 O2 Del Method Room Air 01/10/24 07:32 O2 Flow Rate 3 12/22/23 20:00 BMI result Body Mass Index 28.0 Constitutional : resting comfortably Cardiovascular : no JVP, no lower extremity edema Respiratory : bilateral chest movement, not in resp distress Gastrointestinal: soft, lax, Non tender. Skin : Warm, Dry MSK: swelling int he left knee, no redness, no tenderness. Neurological : Alert & oriented to self , No focal deficit Objective Data Active Medications Acetaminophen (Acetaminophen 325 Mg Tablet) 650 mg PO Q6H PRN PRN Reason: Pain, Mild (Pain Scale 1-3), fever or headache Last Admin: 01/10/24 09:16 Dose: 650 mg Documented By: HATTIE Albuterol Sulfate (Albuterol Sulfate 90 Mcg 8 Gm Inhaler) 2 puff INHALE RQ6H PRN PRN Reason: sob Amlodipine Besylate (Amlodipine Besylate 5 Mg Tablet) 5 mg PO DAILY [facility]; Protocol Last Admin: 01/10/24 08:20 Dose: 5 mg Documented By: ASMITA Artificial Tears (Artificial Tears 15 Ml Drops) 2 drop EYE-BOTH Q4H PRN PRN Reason: Dry Eyes Last Admin: 12/21/23 03:08 Dose: 2 drop Documented By: YOMI Aspirin (Aspirin Enteric Coated 81 Mg Tablet.) 81 mg PO DAILY [facility] Last Admin: 01/10/24 08:20 Dose: 81 mg Documented By: ASMITA Atorvastatin Calcium (Atorvastatin Calcium 20 Mg Tablet) 20 mg PO BEDTIME [facility] Last Admin: 01/09/24 21:18 Dose: 20 mg Documented By: PADMINI Calcium Carbonate (Calcium Carbonate 750 Mg Tab.Chew) 750 mg PO Q4H PRN PRN Reason: Heartburn Enoxaparin Sodium (Enoxaparin Sodium 40 Mg/0.4 Ml Syringe) 40 mg SUBCUT Q24H [facility] Last Admin: 01/09/24 21:18 Dose: 40 mg Documented By: PADMINI Fluoxetine HCl (Fluoxetine Hcl 20 Mg Capsule) 20 mg PO DAILY [facility] Last Admin: 01/10/24 08:20 Dose: 20 mg Documented By: ASMITA Fluticasone/Umeclidinium/Vilanterol (Fluticasone/Umeclidinium/Vilanterol 100/62.5/25 Blst.W.Dev) 1 puff INHALE RDAILY [facility] Last Admin: 01/10/24 08:53 Dose: 1 puff Documented By: ARLINE Gabapentin (Gabapentin 100 Mg Capsule) 100 mg PO DAILY [facility] Last Admin: 01/10/24 08:20 Dose: 100 mg Documented By: ASMITA Hydrochlorothiazide (Hydrochlorothiazide 12.5 Mg Tablet) 12.5 mg PO DAILY [facility]; Protocol Last Admin: 01/10/24 08:20 Dose: 12.5 mg Documented By: ASMITA Magnesium Hydroxide (Milk Of Magnesia 30 Ml Oral.Susp) 30 ml PO DAILY PRN PRN Reason: Constipation Last Admin: 12/08/23 08:25 Dose: 30 ml Documented By: AUDI Melatonin (Melatonin 3 Mg Tablet) 6 mg PO BEDTIME PRN PRN Reason: Insomnia Last Admin: 01/02/24 00:25 Dose: 6 mg Documented By: NA Montelukast Sodium (Montelukast Sodium 10 Mg Tablet) 10 mg PO BEDTIME [facility] Last Admin: 01/09/24 21:18 Dose: 10 mg Documented By: PADMINI Tramadol HCl (Tramadol Hcl 50 Mg Tablet) 25 mg PO Q6H PRN PRN Reason: knee carreon Last Admin: 01/10/24 12:02 Dose: 25 mg Documented By: HATTIE Trazodone HCl (Trazodone Hcl 50 Mg Tablet) 50 mg PO BEDTIME [facility] Last Admin: 01/09/24 21:18 Dose: 50 mg Documented By: PADMINI Vitamin D (Cholecalciferol (Vitamin D3) 25 Mcg Tablet) 25 mcg PO DAILY [facility] Last Admin: 01/10/24 08:20 Dose: 25 mcg Documented By: ASMITA Labs 01/08/24 10:49 01/08/24 10:49 Assessment and Plan (1) Cognitive disorder: Status: Acute Assessment and Plan: 83M PMH copd, htn, hld, dementia unspecified, prostate ca, [facility] in from [facility] after inappropriately interaction with another female resident. No new issues, Fall on 11/26 , no injuries, CT Head unremarkable (outpatient ENT follow up for chronic 1.5cm pedunculated polypoid soft tissue ) Unspecified dementia, stable, needs placement -Prozac per Psych eval for sexual inappropriateness. 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 No acute fracture or dislocation is seen. 2. Persistent left tibiofemoral joint osteoarthritis, most severe in the medial compartment. Interval appearance of genu varus deformity. 3. Left suprapatellar fat pad shows bulging increase in density. -pain likely from above -tylenol and tramadol for pain -ortho recommends conservative managament, PT -tramadol and tylenol fo pain, topical med dvt prophylaxis - lovenox dnr/dni reason for continued hospitalization:dispo planning check routine labs 01/07, cbc, bmp unremarkable. out of bed to chair, check routine labs Quality Stroke Does the patient have a stroke diagnosis?: No VTE Prior VTE?: No VTE Risk Level:: Medical - moderate - high VTE Device Contraindication: Treatment Not Indicated VTE Drug Contraindication: N/A - Med Ordered
[2024-01-10 15:21] VITALS: BP 123/56; PULSE 64; RESP 15; TEMP 36.2; O2SAT 97
--- NOTE | 2024-01-10 15:54 | MHC.CM.PN ---
[facility] has not yet responded re: clinical acceptance. Per [facility]: no available beds at this time, [facility] is not a preferred insurance, but will continue to follow. CM will fax periodic updates.
[2024-01-10 19:09] VITALS: BP 134/60; PULSE 58; RESP 15; TEMP 36.4; O2SAT 95
[2024-01-10] MEDS: Montelukast Sodium 10 MG TABLET PO (19:58)
[2024-01-10] MEDS: Atorvastatin Calcium 20 MG TABLET PO (19:58)
[2024-01-10] MEDS: Enoxaparin Sodium 40 MG/0.4 ML SYRINGE SUBCUT (19:58)
[2024-01-10] MEDS: traZODone HCL 50 MG TABLET PO (19:58)
[2024-01-11 03:53] VITALS: BP 110/57; PULSE 63; RESP 14; TEMP 36.3; O2SAT 96
[2024-01-11] MEDS: traMADoL HCL 50 MG TABLET 25 MG PO ×2 (07:25→16:32)
[2024-01-11 07:40] VITALS: BP 146/64; PULSE 73; RESP 16; TEMP 36.6; O2SAT 97
[2024-01-11 08:24] VITALS: PULSE 73; RESP 16; O2SAT 95
[2024-01-11] MEDS: Fluticasone/Umeclidinium/Vilanterol 100/62.5/25 BLST.W.DEV 1 PUFF INHALE (08:24)
[2024-01-11 08:41] VITALS: BP 146/64; BP 146/73
[2024-01-11] MEDS: Aspirin Enteric Coated 81 MG TABLET.DR PO (08:41)
[2024-01-11] MEDS: hydroCHLOROthiazide 12.5 MG TABLET PO (08:41)
[2024-01-11] MEDS: Gabapentin 100 MG CAPSULE PO (08:41)
[2024-01-11] MEDS: amLODIPine Besylate 5 MG TABLET PO (08:41)
[2024-01-11] MEDS: FLUoxetine HCl 20 MG CAPSULE PO (08:41)
[2024-01-11] MEDS: Cholecalciferol (Vitamin D3) 25 MCG TABLET PO (08:41)
[2024-01-11] MEDS: Acetaminophen 325 MG TABLET 650 MG PO (10:07)
[2024-01-11 15:21] VITALS: BP 119/59; PULSE 56; RESP 16; TEMP 36.2; O2SAT 95
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
[2024-01-11 19:18] VITALS: BP 132/63; PULSE 64; RESP 16; TEMP 36.6; O2SAT 97
[2024-01-11] MEDS: Enoxaparin Sodium 40 MG/0.4 ML SYRINGE SUBCUT (20:17)
[2024-01-11] MEDS: Atorvastatin Calcium 20 MG TABLET PO (20:17)
[2024-01-11] MEDS: traZODone HCL 50 MG TABLET PO (20:17)
[2024-01-11] MEDS: Montelukast Sodium 10 MG TABLET PO (20:17)
[2024-01-12 03:12] VITALS: BP 131/59; PULSE 65; RESP 18; TEMP 36.1; O2SAT 93
[2024-01-12 07:44] VITALS: BP 117/57; PULSE 64; RESP 16; TEMP 36.8; O2SAT 96
[2024-01-12 08:13] VITALS: PULSE 67; RESP 18; O2SAT 94
[2024-01-12] MEDS: Fluticasone/Umeclidinium/Vilanterol 100/62.5/25 BLST.W.DEV 1 PUFF INHALE (08:13)
[2024-01-12] MEDS: Cholecalciferol (Vitamin D3) 25 MCG TABLET PO (09:51)
[2024-01-12] MEDS: amLODIPine Besylate 5 MG TABLET PO (09:51)
[2024-01-12] MEDS: Acetaminophen 325 MG TABLET 650 MG PO (09:51)
[2024-01-12] MEDS: Aspirin Enteric Coated 81 MG TABLET.DR PO (09:51)
[2024-01-12] MEDS: hydroCHLOROthiazide 12.5 MG TABLET PO (09:51)
[2024-01-12] MEDS: Gabapentin 100 MG CAPSULE PO (09:51)
[2024-01-12] MEDS: FLUoxetine HCl 20 MG CAPSULE PO (09:51)
[2024-01-12 15:52] VITALS: BP 148/70; PULSE 70; RESP 16; TEMP 36.6; O2SAT 96
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
[2024-01-12 19:29] VITALS: BP 147/65; PULSE 60; RESP 18; TEMP 37.1; O2SAT 96
[2024-01-12] MEDS: Enoxaparin Sodium 40 MG/0.4 ML SYRINGE SUBCUT (21:49)
[2024-01-12] MEDS: traZODone HCL 50 MG TABLET PO (21:49)
[2024-01-12] MEDS: Atorvastatin Calcium 20 MG TABLET PO (21:49)
[2024-01-12] MEDS: Montelukast Sodium 10 MG TABLET PO (21:49)
[2024-01-12] MEDS: traMADoL HCL 50 MG TABLET 25 MG PO (21:52)
[2024-01-13 03:15] VITALS: BP 142/73; PULSE 67; RESP 18; TEMP 36.7; O2SAT 96
[2024-01-13] MEDS: amLODIPine Besylate 5 MG TABLET PO (07:47)
[2024-01-13] MEDS: Cholecalciferol (Vitamin D3) 25 MCG TABLET PO (07:47)
[2024-01-13] MEDS: traMADoL HCL 50 MG TABLET 25 MG PO ×2 (07:48→17:02)
[2024-01-13] MEDS: FLUoxetine HCl 20 MG CAPSULE PO (07:48)
[2024-01-13] MEDS: Aspirin Enteric Coated 81 MG TABLET.DR PO (07:48)
[2024-01-13] MEDS: Gabapentin 100 MG CAPSULE PO (07:48)
[2024-01-13] MEDS: hydroCHLOROthiazide 12.5 MG TABLET PO (07:48)
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
[2024-01-13 07:57] VITALS: PULSE 67; RESP 18; O2SAT 96
[2024-01-13] MEDS: Fluticasone/Umeclidinium/Vilanterol 100/62.5/25 BLST.W.DEV 1 PUFF INHALE (07:57)
[2024-01-13 08:00] VITALS: BP 142/77; PULSE 67; RESP 18; TEMP 36.7; O2SAT 96
--- NOTE | 2024-01-13 12:26 | MHC.CM.PN ---
EMR reviewed and per MD rounds, pt remains medically cleared for discharge but is unable to due to awaiting LTC placement, with no bed offers.
[2024-01-13 15:34] VITALS: BP 132/59; PULSE 57; RESP 18; TEMP 36.3; O2SAT 96
[2024-01-13 19:15] VITALS: BP 126/58; PULSE 66; RESP 14; TEMP 36.4; O2SAT 96
[2024-01-13] MEDS: Atorvastatin Calcium 20 MG TABLET PO (20:58)
[2024-01-13] MEDS: Enoxaparin Sodium 40 MG/0.4 ML SYRINGE SUBCUT (20:58)
[2024-01-13] MEDS: Montelukast Sodium 10 MG TABLET PO (20:58)
[2024-01-13] MEDS: traZODone HCL 50 MG TABLET PO (20:58)
[2024-01-14] VITALS (7 sets, daily range): BP systolic 125–154; BP diastolic 61–70; PULSE 62–78; RESP 16–18; TEMP 36.7–37.3; O2SAT 95–98
[2024-01-14] MEDS: Fluticasone/Umeclidinium/Vilanterol 100/62.5/25 BLST.W.DEV 1 PUFF INHALE (07:53)
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
[2024-01-14] MEDS: Cholecalciferol (Vitamin D3) 25 MCG TABLET PO (09:26)
[2024-01-14] MEDS: amLODIPine Besylate 5 MG TABLET PO (09:26)
[2024-01-14] MEDS: FLUoxetine HCl 20 MG CAPSULE PO (09:26)
[2024-01-14] MEDS: hydroCHLOROthiazide 12.5 MG TABLET PO (09:27)
[2024-01-14] MEDS: Aspirin Enteric Coated 81 MG TABLET.DR PO (09:27)
[2024-01-14] MEDS: Gabapentin 100 MG CAPSULE PO (09:27)
[2024-01-14] MEDS: Acetaminophen 325 MG TABLET 650 MG PO ×2 (12:57→20:12)
[2024-01-14] MEDS: Montelukast Sodium 10 MG TABLET PO (20:12)
[2024-01-14] MEDS: Atorvastatin Calcium 20 MG TABLET PO (20:12)
[2024-01-14] MEDS: traZODone HCL 50 MG TABLET PO (20:12)
[2024-01-14] MEDS: Enoxaparin Sodium 40 MG/0.4 ML SYRINGE SUBCUT (20:13)
[2024-01-15 02:49] VITALS: BP 132/63; PULSE 62; RESP 15; TEMP 36.6; O2SAT 97
[2024-01-15] MEDS: Fluticasone/Umeclidinium/Vilanterol 100/62.5/25 BLST.W.DEV 1 PUFF INHALE (07:44)
[2024-01-15 07:45] VITALS: PULSE 72; RESP 18; O2SAT 96
[2024-01-15 08:02] VITALS: BP 144/67; PULSE 72; RESP 18; TEMP 36.3; O2SAT 98
[2024-01-15] MEDS: Gabapentin 100 MG CAPSULE PO (08:10)
[2024-01-15] MEDS: Aspirin Enteric Coated 81 MG TABLET.DR PO (08:10)
[2024-01-15] MEDS: FLUoxetine HCl 20 MG CAPSULE PO (08:10)
[2024-01-15] MEDS: Cholecalciferol (Vitamin D3) 25 MCG TABLET PO (08:10)
[2024-01-15] MEDS: hydroCHLOROthiazide 12.5 MG TABLET PO (08:10)
[2024-01-15] MEDS: Acetaminophen 325 MG TABLET 650 MG PO (08:11)
[2024-01-15] MEDS: amLODIPine Besylate 5 MG TABLET PO (08:11)
--- NOTE | 2024-01-15 13:31 | HO.PM.IMPN ---
Subjective Subjective Date of Service: 01/15/24 Interval History: follow up Review of Systems no new c/o Physical Exam Vital Signs: Vital Signs: Last Vital Signs Temp 97.4 F 01/15/24 08:02 Pulse 72 01/15/24 08:02 Resp 18 01/15/24 08:02 BP 144/67 H 01/15/24 08:02 Pulse Ox 98 01/15/24 08:02 O2 Del Method Room Air 01/15/24 08:02 O2 Flow Rate 3 12/22/23 20:00 BMI result Body Mass Index 28.0 Constitutional : resting comfortably Respiratory : Cta , No rales or wheezing Gastrointestinal: soft, nd,nt, Non tender. Skin : Warm, Dry MSK: swelling int he left knee, no redness, no tenderness. Neurological : Alert & oriented to self , No focal deficit Objective Data Active Medications Acetaminophen (Acetaminophen 325 Mg Tablet) 650 mg PO Q6H PRN PRN Reason: Pain, Mild (Pain Scale 1-3), fever or headache Last Admin: 01/15/24 08:11 Dose: 650 mg Documented By: VANESA Albuterol Sulfate (Albuterol Sulfate 90 Mcg 8 Gm Inhaler) 2 puff INHALE RQ6H PRN PRN Reason: sob Amlodipine Besylate (Amlodipine Besylate 5 Mg Tablet) 5 mg PO DAILY [facility]; Protocol Last Admin: 01/15/24 08:11 Dose: 5 mg Documented By: VANESA Artificial Tears (Artificial Tears 15 Ml Drops) 2 drop EYE-BOTH Q4H PRN PRN Reason: Dry Eyes Last Admin: 12/21/23 03:08 Dose: 2 drop Documented By: YOMI Aspirin (Aspirin Enteric Coated 81 Mg Tablet.Dr) 81 mg PO DAILY [facility] Last Admin: 01/15/24 08:10 Dose: 81 mg Documented By: VANESA Atorvastatin Calcium (Atorvastatin Calcium 20 Mg Tablet) 20 mg PO BEDTIME [facility] Last Admin: 01/14/24 20:12 Dose: 20 mg Documented By: ADAM Calcium Carbonate (Calcium Carbonate 750 Mg Tab.Chew) 750 mg PO Q4H PRN PRN Reason: Heartburn Enoxaparin Sodium (Enoxaparin Sodium 40 Mg/0.4 Ml Syringe) 40 mg SUBCUT Q24H [facility] Last Admin: 01/14/24 20:13 Dose: 40 mg Documented By: ADAM Fluoxetine HCl (Fluoxetine Hcl 20 Mg Capsule) 20 mg PO DAILY [facility] Last Admin: 01/15/24 08:10 Dose: 20 mg Documented By: VANESA Fluticasone/Umeclidinium/Vilanterol (Fluticasone/Umeclidinium/Vilanterol 100/62.5/25 Blst.W.Dev) 1 puff INHALE RDAILY [facility] Last Admin: 01/15/24 07:44 Dose: 1 puff Documented By: YAYO Gabapentin (Gabapentin 100 Mg Capsule) 100 mg PO DAILY [facility] Last Admin: 01/15/24 08:10 Dose: 100 mg Documented By: VANESA Hydrochlorothiazide (Hydrochlorothiazide 12.5 Mg Tablet) 12.5 mg PO DAILY [facility]; Protocol Last Admin: 01/15/24 08:10 Dose: 12.5 mg Documented By: VANESA Magnesium Hydroxide (Milk Of Magnesia 30 Ml Oral.Susp) 30 ml PO DAILY PRN PRN Reason: Constipation Last Admin: 12/08/23 08:25 Dose: 30 ml Documented By: AUDI Melatonin (Melatonin 3 Mg Tablet) 6 mg PO BEDTIME PRN PRN Reason: Insomnia Last Admin: 01/02/24 00:25 Dose: 6 mg Documented By: NA Montelukast Sodium (Montelukast Sodium 10 Mg Tablet) 10 mg PO BEDTIME [facility] Last Admin: 01/14/24 20:12 Dose: 10 mg Documented By: ADAM Trazodone HCl (Trazodone Hcl 50 Mg Tablet) 50 mg PO BEDTIME [facility] Last Admin: 01/14/24 20:12 Dose: 50 mg Documented By: ADAM Vitamin D (Cholecalciferol (Vitamin D3) 25 Mcg Tablet) 25 mcg PO DAILY [facility] Last Admin: 01/15/24 08:10 Dose: 25 mcg Documented By: VANESA Labs 01/08/24 10:49 01/08/24 10:49 Assessment and Plan (1) Cognitive disorder: Status: Acute Plan 83M PMH copd, htn, hld, dementia unspecified, prostate ca, sent in from half-way after inappropriately interaction with another female resident. No new issues, Fall on 11/26 , no injuries, CT Head unremarkable (outpatient ENT follow up for chronic 1.5cm pedunculated polypoid soft tissue ) Unspecified dementia, stable, needs placement -Prozac per Psych eval for sexual inappropriateness. -trazadone Dysphagia--BOARDER HAND rec NDD2, thin liquid neuropathic pain--neurontin copd, - albuterol prn htn - amldoipine, hctz hld - statin left knee pain -uric acid nl -xray:1. No acute fracture or dislocation is seen. 2. Persistent left tibiofemoral joint osteoarthritis, most severe in the medial compartment. Interval appearance of genu varus deformity. 3. Left suprapatellar fat pad shows bulging increase in density. -pain likely from above -tylenol and tramadol for pain -ortho recommends conservative managament, PT -tramadol and tylenol fo pain, topical med dvt prophylaxis - lovenox dnr/dni reason for continued hospitalization:dispo planning check routine labs 01/07, cbc, bmp unremarkable. out of bed to chair, check routine labs Quality Stroke Does the patient have a stroke diagnosis?: No VTE Prior VTE?: No VTE Risk Level:: Medical - moderate - high VTE Device Contraindication: Treatment Not Indicated VTE Drug Contraindication: N/A - Med Ordered
[2024-01-15 15:15] VITALS: BP 134/63; PULSE 65; RESP 18; TEMP 36.6; O2SAT 97
[2024-01-15 20:00] VITALS: BP 135/61; PULSE 66; RESP 16; TEMP 36.4; O2SAT 96
[2024-01-15] MEDS: Atorvastatin Calcium 20 MG TABLET PO (21:27)
[2024-01-15] MEDS: Enoxaparin Sodium 40 MG/0.4 ML SYRINGE SUBCUT (21:28)
[2024-01-15] MEDS: Montelukast Sodium 10 MG TABLET PO (21:28)
[2024-01-15] MEDS: traZODone HCL 50 MG TABLET PO (21:28)
[2024-01-16 04:00] VITALS: BP 122/56; PULSE 75; RESP 16; TEMP 36.9; O2SAT 96
[2024-01-16 07:29] VITALS: BP 134/64; PULSE 78; RESP 17; TEMP 36.2; O2SAT 95
[2024-01-16] MEDS: Fluticasone/Umeclidinium/Vilanterol 100/62.5/25 BLST.W.DEV 1 PUFF INHALE (08:22)
[2024-01-16 08:23] VITALS: PULSE 78; RESP 17; O2SAT 97
[2024-01-16] MEDS: Aspirin Enteric Coated 81 MG TABLET.DR PO (08:37)
[2024-01-16] MEDS: FLUoxetine HCl 20 MG CAPSULE PO (08:37)
[2024-01-16] MEDS: Cholecalciferol (Vitamin D3) 25 MCG TABLET PO (08:37)
[2024-01-16 08:38] VITALS: BP 126/58
[2024-01-16] MEDS: hydroCHLOROthiazide 12.5 MG TABLET PO (08:38)
[2024-01-16] MEDS: amLODIPine Besylate 5 MG TABLET PO (08:40)
[2024-01-16] MEDS: Gabapentin 100 MG CAPSULE PO (08:40)
[2024-01-16] MEDS: Acetaminophen 325 MG TABLET 650 MG PO ×2 (10:11→16:25)
--- NOTE | 2024-01-16 13:33 | HO.PM.IMPN ---
Subjective Subjective Date of Service: 01/16/24 Interval History: follow up Review of Systems no new c/o Physical Exam Vital Signs: Vital Signs: Last Vital Signs Temp 97.1 F 01/16/24 07:29 Pulse 78 01/16/24 08:23 Resp 17 01/16/24 08:23 BP 126/58 L 01/16/24 08:38 Pulse Ox 95 01/16/24 07:29 O2 Del Method Room Air 01/16/24 07:29 O2 Flow Rate 3 12/22/23 20:00 BMI result Body Mass Index 28.0 Constitutional : resting comfortably Respiratory : Cta , No rales or wheezing Gastrointestinal: soft, nd,nt, Non tender. Skin : Warm, Dry MSK: swelling int he left knee, no redness, no tenderness. Neurological : Alert & oriented to self , No focal deficit Objective Data Active Medications Acetaminophen (Acetaminophen 325 Mg Tablet) 650 mg PO Q6H PRN PRN Reason: Pain, Mild (Pain Scale 1-3), fever or headache Last Admin: 01/16/24 10:11 Dose: 650 mg Documented By: DOMINIQUE Albuterol Sulfate (Albuterol Sulfate 90 Mcg 8 Gm Inhaler) 2 puff INHALE RQ6H PRN PRN Reason: sob Amlodipine Besylate (Amlodipine Besylate 5 Mg Tablet) 5 mg PO DAILY [facility]; Protocol Last Admin: 01/16/24 08:40 Dose: 5 mg Documented By: DOMINIQUE Artificial Tears (Artificial Tears 15 Ml Drops) 2 drop EYE-BOTH Q4H PRN PRN Reason: Dry Eyes Last Admin: 12/21/23 03:08 Dose: 2 drop Documented By: YOMI Aspirin (Aspirin Enteric Coated 81 Mg Tablet.) 81 mg PO DAILY [facility] Last Admin: 01/16/24 08:37 Dose: 81 mg Documented By: DOMINIQUE Atorvastatin Calcium (Atorvastatin Calcium 20 Mg Tablet) 20 mg PO BEDTIME [facility] Last Admin: 01/15/24 21:27 Dose: 20 mg Documented By: VIRGINIE Calcium Carbonate (Calcium Carbonate 750 Mg Tab.Chew) 750 mg PO Q4H PRN PRN Reason: Heartburn Enoxaparin Sodium (Enoxaparin Sodium 40 Mg/0.4 Ml Syringe) 40 mg SUBCUT Q24H [facility] Last Admin: 01/15/24 21:28 Dose: 40 mg Documented By: VIRGINIE Fluoxetine HCl (Fluoxetine Hcl 20 Mg Capsule) 20 mg PO DAILY [facility] Last Admin: 01/16/24 08:37 Dose: 20 mg Documented By: DOMINIQUE Fluticasone/Umeclidinium/Vilanterol (Fluticasone/Umeclidinium/Vilanterol 100/62.5/25 Blst.W.Dev) 1 puff INHALE RDAILY [facility] Last Admin: 01/16/24 08:22 Dose: 1 puff Documented By: KAYLEIGH Gabapentin (Gabapentin 100 Mg Capsule) 100 mg PO DAILY [facility] Last Admin: 01/16/24 08:40 Dose: 100 mg Documented By: DOMINIQUE Hydrochlorothiazide (Hydrochlorothiazide 12.5 Mg Tablet) 12.5 mg PO DAILY [facility]; Protocol Last Admin: 01/16/24 08:38 Dose: 12.5 mg Documented By: DOMINIQUE Magnesium Hydroxide (Milk Of Magnesia 30 Ml Oral.Susp) 30 ml PO DAILY PRN PRN Reason: Constipation Last Admin: 12/08/23 08:25 Dose: 30 ml Documented By: AUDI Melatonin (Melatonin 3 Mg Tablet) 6 mg PO BEDTIME PRN PRN Reason: Insomnia Last Admin: 01/02/24 00:25 Dose: 6 mg Documented By: NA Montelukast Sodium (Montelukast Sodium 10 Mg Tablet) 10 mg PO BEDTIME [facility] Last Admin: 01/15/24 21:28 Dose: 10 mg Documented By: VIRGINIE Trazodone HCl (Trazodone Hcl 50 Mg Tablet) 50 mg PO BEDTIME [facility] Last Admin: 01/15/24 21:28 Dose: 50 mg Documented By: VIRGINIE Vitamin D (Cholecalciferol (Vitamin D3) 25 Mcg Tablet) 25 mcg PO DAILY [facility] Last Admin: 01/16/24 08:37 Dose: 25 mcg Documented By: DOMINIQUE Labs 01/08/24 10:49 01/08/24 10:49 Assessment and Plan (1) Cognitive disorder: Status: Acute Plan 83M PMH copd, htn, hld, dementia unspecified, prostate ca, sent in from skilled nursing after inappropriately interaction with another female resident. No new issues, Fall on 11/26 , no injuries, CT Head unremarkable (outpatient ENT follow up for chronic 1.5cm pedunculated polypoid soft tissue ) Unspecified dementia, stable, needs placement -Prozac per Psych eval for sexual inappropriateness. 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 No acute fracture or dislocation is seen. 2. Persistent left tibiofemoral joint osteoarthritis, most severe in the medial compartment. Interval appearance of genu varus deformity. 3. Left suprapatellar fat pad shows bulging increase in density. -pain likely from above -tylenol and tramadol for pain -ortho recommends conservative managament, PT -tramadol and tylenol fo pain, topical med dvt prophylaxis - lovenox dnr/dni reason for continued hospitalization:dispo planning check routine labs 01/07, cbc, bmp unremarkable. out of bed to chair, check routine labs Quality Stroke Does the patient have a stroke diagnosis?: No VTE Prior VTE?: No VTE Risk Level:: Medical - moderate - high VTE Device Contraindication: Treatment Not Indicated VTE Drug Contraindication: N/A - Med Ordered
[2024-01-16] MEDS: Albuterol Sulfate 90 MCG 8 GM INHALER 2 PUFF INHALE (13:46)
--- NOTE | 2024-01-16 15:08 | MHC.CM.PN ---
CM SPOKE WITH NURSING AT [facility] TO INQUIRE HOW PT WAS LOOKING FOR A POSSIBLE ADMISSION UPCOMING (WAIT LIST) AND REFERRAL HAND FAXED TO LU[facility]UEL (ADMISSIONS) AT [facility]. AWAITING RESPONSES.
[2024-01-16 15:38] VITALS: BP 134/94; PULSE 65; RESP 18; TEMP 36.1; O2SAT 98
[2024-01-16 19:10] VITALS: BP 147/70; PULSE 63; RESP 18; TEMP 36.6; O2SAT 96
[2024-01-16] MEDS: traZODone HCL 50 MG TABLET PO (20:56)
[2024-01-16] MEDS: Atorvastatin Calcium 20 MG TABLET PO (20:56)
[2024-01-16] MEDS: Montelukast Sodium 10 MG TABLET PO (20:56)
[2024-01-16] MEDS: Enoxaparin Sodium 40 MG/0.4 ML SYRINGE SUBCUT (20:56)
[2024-01-17 03:52] VITALS: BP 158/68; PULSE 67; RESP 18; TEMP 36.6; O2SAT 98
[2024-01-17 07:13] VITALS: BP 120/56; PULSE 62; RESP 17; TEMP 36.1; O2SAT 95
[2024-01-17] MEDS: Fluticasone/Umeclidinium/Vilanterol 100/62.5/25 BLST.W.DEV 1 PUFF INHALE (08:43)
[2024-01-17 08:45] VITALS: PULSE 67; RESP 18; O2SAT 96
[2024-01-17] MEDS: amLODIPine Besylate 5 MG TABLET PO (09:02)
[2024-01-17] MEDS: hydroCHLOROthiazide 12.5 MG TABLET PO (09:02)
[2024-01-17] MEDS: FLUoxetine HCl 20 MG CAPSULE PO (09:03)
[2024-01-17] MEDS: Gabapentin 100 MG CAPSULE PO (09:03)
[2024-01-17] MEDS: Cholecalciferol (Vitamin D3) 25 MCG TABLET PO (09:03)
[2024-01-17] MEDS: Aspirin Enteric Coated 81 MG TABLET.DR PO (09:03)
--- NOTE | 2024-01-17 10:59 | P.PNIM_ITS ---
Subjective Subjective Date of Service: 01/17/24 Interval History: No new issues Physical Exam 2 Vital Signs: Vital Signs: Last Vital Signs Temp 97.0 F 01/17/24 07:13 Pulse 67 01/17/24 08:45 Resp 18 01/17/24 08:45 BP 120/56 L 01/17/24 07:13 Pulse Ox 95 01/17/24 07:13 O2 Del Method Room Air 01/17/24 07:13 O2 Flow Rate 3 12/22/23 20:00 BMI result Body Mass Index 28.0 Const: Other: Constitutional : resting comfortably Cardiovascular : no JVP, no lower extremity edema Respiratory : bilateral chest movement, not in resp distress Gastrointestinal: soft, lax, Non tender Skin : Warm, Dry MSK: swelling int he left knee, no redness, no tenderness Neurological : Alert & oriented to self , No focal deficit Objective Data Active Medications Acetaminophen (Acetaminophen 325 Mg Tablet) 650 mg PO Q6H PRN PRN Reason: Pain, Mild (Pain Scale 1-3), fever or headache Last Admin: 01/16/24 16:25 Dose: 650 mg Documented By: MAXIMINO Albuterol Sulfate (Albuterol Sulfate 90 Mcg 8 Gm Inhaler) 2 puff INHALE RQ6H PRN PRN Reason: sob Last Admin: 01/16/24 13:46 Dose: 2 puff Documented By: DOMINIQUE Comments: Patient reporting SOB. Per respiratory, unavailable to administer at this time, ana miguel RN to administer. Amlodipine Besylate (Amlodipine Besylate 5 Mg Tablet) 5 mg PO DAILY [facility]; Protocol Last Admin: 01/17/24 09:02 Dose: 5 mg Documented By: LUIS Artificial Tears (Artificial Tears 15 Ml Drops) 2 drop EYE-BOTH Q4H PRN PRN Reason: Dry Eyes Last Admin: 12/21/23 03:08 Dose: 2 drop Documented By: YOMI Aspirin (Aspirin Enteric Coated 81 Mg Tablet.) 81 mg PO DAILY [facility] Last Admin: 01/17/24 09:03 Dose: 81 mg Documented By: LUIS Atorvastatin Calcium (Atorvastatin Calcium 20 Mg Tablet) 20 mg PO BEDTIME [facility] Last Admin: 01/16/24 20:56 Dose: 20 mg Documented By: MAXIMINO Calcium Carbonate (Calcium Carbonate 750 Mg Tab.Chew) 750 mg PO Q4H PRN PRN Reason: Heartburn Enoxaparin Sodium (Enoxaparin Sodium 40 Mg/0.4 Ml Syringe) 40 mg SUBCUT Q24H [facility] Last Admin: 01/16/24 20:56 Dose: 40 mg Documented By: MAXIMINO Fluoxetine HCl (Fluoxetine Hcl 20 Mg Capsule) 20 mg PO DAILY [facility] Last Admin: 01/17/24 09:03 Dose: 20 mg Documented By: LUIS Fluticasone/Umeclidinium/Vilanterol (Fluticasone/Umeclidinium/Vilanterol 100/62.5/25 Blst.W.Dev) 1 puff INHALE RDAILY [facility] Last Admin: 01/17/24 08:43 Dose: 1 puff Documented By: ADELA Gabapentin (Gabapentin 100 Mg Capsule) 100 mg PO DAILY [facility] Last Admin: 01/17/24 09:03 Dose: 100 mg Documented By: LUIS Hydrochlorothiazide (Hydrochlorothiazide 12.5 Mg Tablet) 12.5 mg PO DAILY [facility]; Protocol Last Admin: 01/17/24 09:02 Dose: 12.5 mg Documented By: LUIS Magnesium Hydroxide (Milk Of Magnesia 30 Ml Oral.Susp) 30 ml PO DAILY PRN PRN Reason: Constipation Last Admin: 12/08/23 08:25 Dose: 30 ml Documented By: AUDI Melatonin (Melatonin 3 Mg Tablet) 6 mg PO BEDTIME PRN PRN Reason: Insomnia Last Admin: 01/02/24 00:25 Dose: 6 mg Documented By: NA Montelukast Sodium (Montelukast Sodium 10 Mg Tablet) 10 mg PO BEDTIME [facility] Last Admin: 01/16/24 20:56 Dose: 10 mg Documented By: MAXIMINO Trazodone HCl (Trazodone Hcl 50 Mg Tablet) 50 mg PO BEDTIME [facility] Last Admin: 01/16/24 20:56 Dose: 50 mg Documented By: MAXIMINO Vitamin D (Cholecalciferol (Vitamin D3) 25 Mcg Tablet) 25 mcg PO DAILY [facility] Last Admin: 01/17/24 09:03 Dose: 25 mcg Documented By: LUIS Labs 01/08/24 10:49 01/08/24 10:49 Assessment and Plan (1) Cognitive disorder: Status: Acute Plan 83M PMH copd, htn, hld, dementia unspecified, prostate ca, sent in from skilled nursing after inappropriately interaction with another female resident. Unspecified dementia, stable, needs placement -Prozac per Psych eval for sexual inappropriateness. 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 No acute fracture or dislocation is seen. 2. Persistent left tibiofemoral joint osteoarthritis, most severe in the medial compartment. Interval appearance of genu varus deformity. 3. Left suprapatellar fat pad shows bulging increase in density. -pain likely from above -tylenol and tramadol for pain -ortho recommends conservative managament, PT -tramadol and tylenol fo pain, topical med dvt prophylaxis - lovenox dnr/dni reason for continued hospitalization:dispo planning check routine labs 01/07, cbc, bmp unremarkable. resolved issues: Fall on 11/26 , no injuries, CT Head unremarkable (outpatient ENT follow up for chronic 1.5cm pedunculated polypoid soft tissue ) out of bed to chair, check routine labs Quality Stroke Does the patient have a stroke diagnosis?: No VTE Prior VTE?: No VTE Risk Level:: Medical - moderate - high VTE Device Contraindication: Treatment Not Indicated VTE Drug Contraindication: N/A - Med Ordered
[2024-01-17] MEDS: Acetaminophen 325 MG TABLET 650 MG PO ×2 (12:22→19:54)
[2024-01-17 15:19] VITALS: BP 127/59; PULSE 61; RESP 18; TEMP 36.2; O2SAT 96
--- NOTE | 2024-01-17 16:43 | PC.NURSE ---
Pt yelling and disturbing the unit and other patients. Screaming out. Pt attempted to redirect, unable. Camera on and door closed.
[2024-01-17 19:17] VITALS: BP 126/58; PULSE 54; RESP 20; TEMP 36.4; O2SAT 96
[2024-01-17] MEDS: Enoxaparin Sodium 40 MG/0.4 ML SYRINGE SUBCUT (19:54)
[2024-01-17] MEDS: Montelukast Sodium 10 MG TABLET PO (19:54)
[2024-01-17] MEDS: Atorvastatin Calcium 20 MG TABLET PO (19:54)
[2024-01-17] MEDS: traZODone HCL 50 MG TABLET PO (19:54)
[2024-01-18 04:00] VITALS: BP 99/55; PULSE 63; RESP 18; TEMP 36.2; O2SAT 98
[2024-01-18 07:22] VITALS: BP 120/55; PULSE 63; RESP 16; TEMP 36.9; O2SAT 97
[2024-01-18 07:44] VITALS: BP 120/55
[2024-01-18] MEDS: Acetaminophen 325 MG TABLET 650 MG PO ×2 (07:44→22:25)
[2024-01-18] MEDS: FLUoxetine HCl 20 MG CAPSULE PO (07:44)
[2024-01-18] MEDS: Cholecalciferol (Vitamin D3) 25 MCG TABLET PO (07:44)
[2024-01-18] MEDS: amLODIPine Besylate 5 MG TABLET PO (07:44)
[2024-01-18] MEDS: hydroCHLOROthiazide 12.5 MG TABLET PO (07:44)
[2024-01-18] MEDS: Gabapentin 100 MG CAPSULE PO (07:45)
[2024-01-18] MEDS: Aspirin Enteric Coated 81 MG TABLET.DR PO (07:47)
--- NOTE | 2024-01-18 07:53 | HO.PM.IMPN ---
Subjective Subjective Date of Service: 01/18/24 Interval History: No new issues, other than usual pain in the knee Physical Exam Vital Signs: Vital Signs: Last Vital Signs Temp 98.4 F 01/18/24 07:22 Pulse 63 01/18/24 07:22 Resp 16 01/18/24 07:22 BP 120/55 L 01/18/24 07:44 Pulse Ox 97 01/18/24 07:22 O2 Del Method Room Air 01/18/24 07:22 O2 Flow Rate 3 12/22/23 20:00 BMI result Body Mass Index 28.0 Const: Other: Constitutional : resting comfortably Cardiovascular : no JVP, no lower extremity edema Respiratory : bilateral chest movement, not in resp distress Gastrointestinal: soft, lax, Non tender Skin : Warm, Dry MSK: mild swelling in the left knee, no redness Neurological : Alert & oriented to self , No focal deficit Objective Data Active Medications Acetaminophen (Acetaminophen 325 Mg Tablet) 650 mg PO Q6H PRN PRN Reason: Pain, Mild (Pain Scale 1-3), fever or headache Last Admin: 01/18/24 07:44 Dose: 650 mg Documented By: ASMITA Albuterol Sulfate (Albuterol Sulfate 90 Mcg 8 Gm Inhaler) 2 puff INHALE RQ6H PRN PRN Reason: sob Last Admin: 01/16/24 13:46 Dose: 2 puff Documented By: DOMINIQUE Comments: Patient reporting SOB. Per respiratory, unavailable to administer at this time, ana miguel RN to administer. Amlodipine Besylate (Amlodipine Besylate 5 Mg Tablet) 5 mg PO DAILY [facility]; Protocol Last Admin: 01/18/24 07:44 Dose: 5 mg Documented By: ASMITA Artificial Tears (Artificial Tears 15 Ml Drops) 2 drop EYE-BOTH Q4H PRN PRN Reason: Dry Eyes Last Admin: 12/21/23 03:08 Dose: 2 drop Documented By: YOMI Aspirin (Aspirin Enteric Coated 81 Mg Tablet.) 81 mg PO DAILY [facility] Last Admin: 01/18/24 07:47 Dose: 81 mg Documented By: ASMITA Atorvastatin Calcium (Atorvastatin Calcium 20 Mg Tablet) 20 mg PO BEDTIME [facility] Last Admin: 01/17/24 19:54 Dose: 20 mg Documented By: WAGNER Calcium Carbonate (Calcium Carbonate 750 Mg Tab.Chew) 750 mg PO Q4H PRN PRN Reason: Heartburn Enoxaparin Sodium (Enoxaparin Sodium 40 Mg/0.4 Ml Syringe) 40 mg SUBCUT Q24H [facility] Last Admin: 01/17/24 19:54 Dose: 40 mg Documented By: WAGNER Fluoxetine HCl (Fluoxetine Hcl 20 Mg Capsule) 20 mg PO DAILY [facility] Last Admin: 01/18/24 07:44 Dose: 20 mg Documented By: ASMITA Fluticasone/Umeclidinium/Vilanterol (Fluticasone/Umeclidinium/Vilanterol 100/62.5/25 Blst.W.Dev) 1 puff INHALE RDAILY [facility] Last Admin: 01/18/24 07:31 Dose: Not Given Documented By: KAYELIGH Non-Admin Reason: Agitation Gabapentin (Gabapentin 100 Mg Capsule) 100 mg PO DAILY [facility] Last Admin: 01/18/24 07:45 Dose: 100 mg Documented By: ASMITA Hydrochlorothiazide (Hydrochlorothiazide 12.5 Mg Tablet) 12.5 mg PO DAILY [facility]; Protocol Last Admin: 01/18/24 07:44 Dose: 12.5 mg Documented By: ASMITA Magnesium Hydroxide (Milk Of Magnesia 30 Ml Oral.Susp) 30 ml PO DAILY PRN PRN Reason: Constipation Last Admin: 12/08/23 08:25 Dose: 30 ml Documented By: AUDI Melatonin (Melatonin 3 Mg Tablet) 6 mg PO BEDTIME PRN PRN Reason: Insomnia Last Admin: 01/02/24 00:25 Dose: 6 mg Documented By: NA Montelukast Sodium (Montelukast Sodium 10 Mg Tablet) 10 mg PO BEDTIME [facility] Last Admin: 01/17/24 19:54 Dose: 10 mg Documented By: WAGNER Trazodone HCl (Trazodone Hcl 50 Mg Tablet) 50 mg PO BEDTIME [facility] Last Admin: 01/17/24 19:54 Dose: 50 mg Documented By: WAGNER Vitamin D (Cholecalciferol (Vitamin D3) 25 Mcg Tablet) 25 mcg PO DAILY [facility] Last Admin: 01/18/24 07:44 Dose: 25 mcg Documented By: ASMITA Labs 01/08/24 10:49 01/08/24 10:49 Assessment and Plan (1) Cognitive disorder: Status: Acute Plan 83M PMH copd, htn, hld, dementia unspecified, prostate ca, sent in from alf after inappropriately interaction with another female resident. Unspecified dementia, stable, needs placement -Prozac per Psych eval for sexual inappropriateness. 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 No acute fracture or dislocation is seen. 2. Persistent left tibiofemoral joint osteoarthritis, most severe in the medial compartment. Interval appearance of genu varus deformity. 3. Left suprapatellar fat pad shows bulging increase in density. -pain likely from above -tylenol and tramadol for pain -ortho recommends conservative managament, PT -tramadol and tylenol fo pain, topical med dvt prophylaxis - lovenox dnr/dni reason for continued hospitalization:dispo planning check routine labs 01/07, cbc, bmp unremarkable. resolved issues: Fall on 11/26 , no injuries, CT Head unremarkable (outpatient ENT follow up for chronic 1.5cm pedunculated polypoid soft tissue ) out of bed to chair, check routine labs Quality Stroke Does the patient have a stroke diagnosis?: No VTE Prior VTE?: No VTE Risk Level:: Medical - moderate - high VTE Device Contraindication: Treatment Not Indicated VTE Drug Contraindication: N/A - Med Ordered
--- NOTE | 2024-01-18 12:32 | PC.NURSE ---
pt has been cooperative and redirectable today
--- NOTE | 2024-01-18 12:37 | MHC.CM.PN ---
Patient awaiting LTC placement with no bed offers at this time. CM followed up w/ facilities below: [facility]: sent requested updates via [facility], pending clinical acceptance, no beds available [facility]: Initial referral sent 01/15. Per Dotty in admissions not received. Refaxed and confirmed receipt. Requested/faxed documents include: demographics, HCP, MOLST, clinicals (RN notes, H&P, 5 most recent PN's, labs, vitals). [facility] - phone [phone], fax [phone] [facility]: LM for Dipika, faxed updated PN to [phone], received fax confirmation [facility]: CM spoke w/ admissions who states they do not take LTC patients, only STR w/ a disposition. Not following.
[2024-01-18 14:54] VITALS: BP 139/68; PULSE 65; RESP 16; TEMP 36.6; O2SAT 98
[2024-01-18 19:08] VITALS: BP 136/62; PULSE 65; RESP 18; TEMP 36.2; O2SAT 97
[2024-01-18] MEDS: Enoxaparin Sodium 40 MG/0.4 ML SYRINGE SUBCUT (22:19)
[2024-01-18] MEDS: Montelukast Sodium 10 MG TABLET PO (22:20)
[2024-01-18] MEDS: traZODone HCL 50 MG TABLET PO (22:20)
[2024-01-18] MEDS: Atorvastatin Calcium 20 MG TABLET PO (22:20)
[2024-01-19] VITALS (7 sets, daily range): BP systolic 115–138; BP diastolic 54–67; PULSE 65–73; RESP 16–18; TEMP 36.3–36.6; O2SAT 96–98
[2024-01-19 07:23] LABS: Anion Gap 11 (12-20); Blood Urea Nitrogen 11 mg/dL (9-16); Carbon Dioxide 27 mmol/L (22-29); Chloride 97 mmol/L (96-108); Creatinine Clr Calc Pharmacy 66.4; Estimated Glomerular Filt Rate > 60; Glucose Random 85 mg/dL (60-115); Potassium 3.4 mmol/L (3.3-5.1); Sodium 132 mmol/L (135-145)
[2024-01-19 07:46] LABS: Hematocrit 38.7 % (42.0-52.0); Mean Corpuscular HGB Conc 36.2 g/dl (31.0-36.0); Mean Corpuscular Hemoglobin 30.2 pg (27.0-33.0); Mean Corpuscular Volume 83.4 fL (80.0-98.0); Mean Platelet Volume 10.3 fL (9.4-12.4); Platelet Count 310 X10*3/uL (160-400); Red Blood Count 4.64 X10*6/uL (4.60-5.80); Red Cell Distribution Width 12.9 % (11.0-16.0); White Blood Count 9.8 X10*3/uL (4.8-10.8)
[2024-01-19] MEDS: Gabapentin 100 MG CAPSULE PO (08:09)
[2024-01-19] MEDS: amLODIPine Besylate 5 MG TABLET PO (08:09)
[2024-01-19] MEDS: Cholecalciferol (Vitamin D3) 25 MCG TABLET PO (08:10)
[2024-01-19] MEDS: hydroCHLOROthiazide 12.5 MG TABLET PO (08:10)
[2024-01-19] MEDS: FLUoxetine HCl 20 MG CAPSULE PO (08:10)
[2024-01-19] MEDS: Aspirin Enteric Coated 81 MG TABLET.DR PO (08:10)
[2024-01-19] MEDS: Acetaminophen 325 MG TABLET 650 MG PO ×2 (08:15→20:49)
[2024-01-19] MEDS: Fluticasone/Umeclidinium/Vilanterol 100/62.5/25 BLST.W.DEV 1 PUFF INHALE (08:59)
--- NOTE | 2024-01-19 09:51 | HO.PM.IMPN ---
Subjective Subjective Date of Service: 01/19/24 Interval History: No new issues, other than usual pain in the knee Physical Exam Vital Signs: Vital Signs: Last Vital Signs Temp 97.9 F 01/19/24 07:16 Pulse 65 01/19/24 08:59 Resp 16 01/19/24 08:59 BP 115/54 L 01/19/24 08:10 Pulse Ox 96 01/19/24 07:16 O2 Del Method Room Air 01/19/24 07:16 O2 Flow Rate 3 12/22/23 20:00 BMI result Body Mass Index 28.0 Const: Other: Constitutional : resting comfortably Cardiovascular : no JVP, no lower extremity edema Respiratory : bilateral chest movement, not in resp distress Gastrointestinal: soft, lax, Non tender Skin : Warm, Dry MSK: mild swelling in the left knee, no redness Neurological : Alert & oriented to self , No focal deficit Objective Data Active Medications Acetaminophen (Acetaminophen 325 Mg Tablet) 650 mg PO Q6H PRN PRN Reason: Pain, Mild (Pain Scale 1-3), fever or headache Last Admin: 01/19/24 08:15 Dose: 650 mg Documented By: ASMITA Albuterol Sulfate (Albuterol Sulfate 90 Mcg 8 Gm Inhaler) 2 puff INHALE RQ6H PRN PRN Reason: sob Last Admin: 01/16/24 13:46 Dose: 2 puff Documented By: DOMINIQUE Comments: Patient reporting SOB. Per respiratory, unavailable to administer at this time, ana miguel RN to administer. Amlodipine Besylate (Amlodipine Besylate 5 Mg Tablet) 5 mg PO DAILY [facility]; Protocol Last Admin: 01/19/24 08:09 Dose: 5 mg Documented By: ASMITA Artificial Tears (Artificial Tears 15 Ml Drops) 2 drop EYE-BOTH Q4H PRN PRN Reason: Dry Eyes Last Admin: 12/21/23 03:08 Dose: 2 drop Documented By: YOMI Aspirin (Aspirin Enteric Coated 81 Mg Tablet.) 81 mg PO DAILY [facility] Last Admin: 01/19/24 08:10 Dose: 81 mg Documented By: ASMITA Atorvastatin Calcium (Atorvastatin Calcium 20 Mg Tablet) 20 mg PO BEDTIME [facility] Last Admin: 01/18/24 22:20 Dose: 20 mg Documented By: REANNA Calcium Carbonate (Calcium Carbonate 750 Mg Tab.Chew) 750 mg PO Q4H PRN PRN Reason: Heartburn Enoxaparin Sodium (Enoxaparin Sodium 40 Mg/0.4 Ml Syringe) 40 mg SUBCUT Q24H [facility] Last Admin: 01/18/24 22:19 Dose: 40 mg Documented By: REANNA Fluoxetine HCl (Fluoxetine Hcl 20 Mg Capsule) 20 mg PO DAILY [facility] Last Admin: 01/19/24 08:10 Dose: 20 mg Documented By: ASMITA Fluticasone/Umeclidinium/Vilanterol (Fluticasone/Umeclidinium/Vilanterol 100/62.5/25 Blst.W.Dev) 1 puff INHALE RDAILY [facility] Last Admin: 01/19/24 08:59 Dose: 1 puff Documented By: NOÉ Gabapentin (Gabapentin 100 Mg Capsule) 100 mg PO DAILY [facility] Last Admin: 01/19/24 08:09 Dose: 100 mg Documented By: ASMITA Hydrochlorothiazide (Hydrochlorothiazide 12.5 Mg Tablet) 12.5 mg PO DAILY [facility]; Protocol Last Admin: 01/19/24 08:10 Dose: 12.5 mg Documented By: ASMITA Magnesium Hydroxide (Milk Of Magnesia 30 Ml Oral.Susp) 30 ml PO DAILY PRN PRN Reason: Constipation Last Admin: 12/08/23 08:25 Dose: 30 ml Documented By: AUDI Melatonin (Melatonin 3 Mg Tablet) 6 mg PO BEDTIME PRN PRN Reason: Insomnia Last Admin: 01/02/24 00:25 Dose: 6 mg Documented By: NA Montelukast Sodium (Montelukast Sodium 10 Mg Tablet) 10 mg PO BEDTIME [facility] Last Admin: 01/18/24 22:20 Dose: 10 mg Documented By: REANNA Trazodone HCl (Trazodone Hcl 50 Mg Tablet) 50 mg PO BEDTIME [facility] Last Admin: 01/18/24 22:20 Dose: 50 mg Documented By: REANNA Vitamin D (Cholecalciferol (Vitamin D3) 25 Mcg Tablet) 25 mcg PO DAILY [facility] Last Admin: 01/19/24 08:10 Dose: 25 mcg Documented By: ASMITA Labs 01/19/24 07:00 01/19/24 07:00 Labs: Laboratory Results - last 24 hr 01/19/24 07:00 MCV 83.4 MCH 30.2 MCHC 36.2 H RDW 12.9 Plt Count 310 MPV 10.3 Absolute Nucleated RBC 0.000 Nucleated RBC % (auto) 0.0 Anion Gap 11 L Estim Creat Clear Calc 66.4 Estimated GFR > 60 Random Glucose 85 Calcium 9.0 Assessment and Plan (1) Cognitive disorder: Status: Acute Plan 83M PMH copd, htn, hld, dementia unspecified, prostate ca, sent in from intermediate after inappropriately interaction with another female resident. Unspecified dementia, stable, needs placement -Prozac per Psych eval for sexual inappropriateness. -trazadone Dysphagia--HEAVY CLEANER rec NDD2, thin liquid neuropathic pain--neurontin copd, - albuterol prn htn - amldoipine, hctz hld - statin left knee pain -uric acid nl -xray:1. No acute fracture or dislocation is seen. 2. Persistent left tibiofemoral joint osteoarthritis, most severe in the medial compartment. Interval appearance of genu varus deformity. 3. Left suprapatellar fat pad shows bulging increase in density. -pain likely from above -tylenol and tramadol for pain -ortho recommends conservative managament, PT -tramadol and tylenol fo pain, topical med dvt prophylaxis - lovenox dnr/dni reason for continued hospitalization:dispo planning check routine labs 01/18, cbc ok, BMP mild hyponatremia 132, will follow resolved issues: Fall on 11/26 , no injuries, CT Head unremarkable (outpatient ENT follow up for chronic 1.5cm pedunculated polypoid soft tissue ) out of bed to chair, check routine labs Quality Stroke Does the patient have a stroke diagnosis?: No VTE Prior VTE?: No VTE Risk Level:: Medical - moderate - high VTE Device Contraindication: Treatment Not Indicated VTE Drug Contraindication: N/A - Med Ordered
--- NOTE | 2024-01-19 15:32 | PC.NURSE ---
Pt cooperative no behavioral issues .
[2024-01-19] MEDS: Atorvastatin Calcium 20 MG TABLET PO (20:49)
[2024-01-19] MEDS: Montelukast Sodium 10 MG TABLET PO (20:49)
[2024-01-19] MEDS: traZODone HCL 50 MG TABLET PO (20:49)
[2024-01-19] MEDS: Enoxaparin Sodium 40 MG/0.4 ML SYRINGE SUBCUT (20:51)
[2024-01-20 03:45] VITALS: BP 119/57; PULSE 60; RESP 18; TEMP 36.3; O2SAT 97
[2024-01-20 07:10] VITALS: BP 134/64; PULSE 77; RESP 16; TEMP 36.3; O2SAT 95
[2024-01-20] MEDS: hydroCHLOROthiazide 12.5 MG TABLET PO (08:18)
[2024-01-20] MEDS: amLODIPine Besylate 5 MG TABLET PO (08:19)
[2024-01-20] MEDS: Acetaminophen 325 MG TABLET 650 MG PO ×2 (08:19→19:44)
[2024-01-20] MEDS: Aspirin Enteric Coated 81 MG TABLET.DR PO (08:19)
[2024-01-20] MEDS: Cholecalciferol (Vitamin D3) 25 MCG TABLET PO (08:19)
[2024-01-20] MEDS: Gabapentin 100 MG CAPSULE PO (08:19)
[2024-01-20] MEDS: FLUoxetine HCl 20 MG CAPSULE PO (08:19)
[2024-01-20] MEDS: Fluticasone/Umeclidinium/Vilanterol 100/62.5/25 BLST.W.DEV 1 PUFF INHALE (09:08)
[2024-01-20 09:09] VITALS: PULSE 77; RESP 16; O2SAT 95
--- NOTE | 2024-01-20 10:25 | MHC.CM.PN ---
Patient awaiting LTC placement with no bed offers at this time. CM followed up w/ facilities below: [facility]: still in review, pending clinical acceptance [facility]: CM spoke w/ admissions who reports patient is on wait list to be reviewed, can expect a call next week w/ determination. Gwendolyn - phone [phone], fax [phone] [facility]: CM spoke w/ Dipika in admissions 01/18. Updates were received. No bed available at this time, anticipating a bed opening up in the next few weeks. CM will continue to follow.
--- NOTE | 2024-01-20 10:37 | P.PNIM_ITS ---
Subjective Subjective Date of Service: 01/20/24 Interval History: No new issues, other than usual pain in the knee Physical Exam 2 Vital Signs: Vital Signs: Last Vital Signs Temp 97.3 F 01/20/24 07:10 Pulse 77 01/20/24 09:09 Resp 16 01/20/24 09:09 BP 134/64 01/20/24 07:10 Pulse Ox 95 01/20/24 07:10 O2 Del Method Room Air 01/20/24 07:10 O2 Flow Rate 3 12/22/23 20:00 BMI result Body Mass Index 28.0 Const: Other: Constitutional : resting comfortably Cardiovascular : no JVP, no lower extremity edema Respiratory : bilateral chest movement, not in resp distress Gastrointestinal: soft, lax, Non tender Skin : Warm, Dry MSK: mild swelling in the left knee, no redness Neurological : Alert & oriented to self , No focal deficit Objective Data Active Medications Acetaminophen (Acetaminophen 325 Mg Tablet) 650 mg PO Q6H PRN PRN Reason: Pain, Mild (Pain Scale 1-3), fever or headache Last Admin: 01/20/24 08:19 Dose: 650 mg Documented By: BOB Albuterol Sulfate (Albuterol Sulfate 90 Mcg 8 Gm Inhaler) 2 puff INHALE RQ6H PRN PRN Reason: sob Last Admin: 01/16/24 13:46 Dose: 2 puff Documented By: DOMINIQUE Comments: Patient reporting SOB. Per respiratory, unavailable to administer at this time, ana miguel RN to administer. Amlodipine Besylate (Amlodipine Besylate 5 Mg Tablet) 5 mg PO DAILY [facility]; Protocol Last Admin: 01/20/24 08:19 Dose: 5 mg Documented By: BOB Artificial Tears (Artificial Tears 15 Ml Drops) 2 drop EYE-BOTH Q4H PRN PRN Reason: Dry Eyes Last Admin: 12/21/23 03:08 Dose: 2 drop Documented By: YOMI Aspirin (Aspirin Enteric Coated 81 Mg Tablet.) 81 mg PO DAILY [facility] Last Admin: 01/20/24 08:19 Dose: 81 mg Documented By: BOB Atorvastatin Calcium (Atorvastatin Calcium 20 Mg Tablet) 20 mg PO BEDTIME [facility] Last Admin: 01/19/24 20:49 Dose: 20 mg Documented By: LYSZ Calcium Carbonate (Calcium Carbonate 750 Mg Tab.Chew) 750 mg PO Q4H PRN PRN Reason: Heartburn Enoxaparin Sodium (Enoxaparin Sodium 40 Mg/0.4 Ml Syringe) 40 mg SUBCUT Q24H [facility] Last Admin: 01/19/24 20:51 Dose: 40 mg Documented By: REANNA Fluoxetine HCl (Fluoxetine Hcl 20 Mg Capsule) 20 mg PO DAILY [facility] Last Admin: 01/20/24 08:19 Dose: 20 mg Documented By: BOB Fluticasone/Umeclidinium/Vilanterol (Fluticasone/Umeclidinium/Vilanterol 100/62.5/25 Blst.W.Dev) 1 puff INHALE RDAILY [facility] Last Admin: 01/20/24 09:08 Dose: 1 puff Documented By: DEN Gabapentin (Gabapentin 100 Mg Capsule) 100 mg PO DAILY [facility] Last Admin: 01/20/24 08:19 Dose: 100 mg Documented By: BOB Hydrochlorothiazide (Hydrochlorothiazide 12.5 Mg Tablet) 12.5 mg PO DAILY [facility]; Protocol Last Admin: 01/20/24 08:18 Dose: 12.5 mg Documented By: BOB Magnesium Hydroxide (Milk Of Magnesia 30 Ml Oral.Susp) 30 ml PO DAILY PRN PRN Reason: Constipation Last Admin: 12/08/23 08:25 Dose: 30 ml Documented By: AUDI Melatonin (Melatonin 3 Mg Tablet) 6 mg PO BEDTIME PRN PRN Reason: Insomnia Last Admin: 01/02/24 00:25 Dose: 6 mg Documented By: NA Montelukast Sodium (Montelukast Sodium 10 Mg Tablet) 10 mg PO BEDTIME [facility] Last Admin: 01/19/24 20:49 Dose: 10 mg Documented By: REANNA Trazodone HCl (Trazodone Hcl 50 Mg Tablet) 50 mg PO BEDTIME [facility] Last Admin: 01/19/24 20:49 Dose: 50 mg Documented By: REANNA Vitamin D (Cholecalciferol (Vitamin D3) 25 Mcg Tablet) 25 mcg PO DAILY [facility] Last Admin: 01/20/24 08:19 Dose: 25 mcg Documented By: BOB Labs 01/19/24 07:00 01/19/24 07:00 Assessment and Plan (1) Cognitive disorder: Status: Acute Plan 83M PMH copd, htn, hld, dementia unspecified, prostate ca, sent in from alf after inappropriately interaction with another female resident. Unspecified dementia, stable, needs placement -Prozac per Psych eval for sexual inappropriateness. 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 No acute fracture or dislocation is seen. 2. Persistent left tibiofemoral joint osteoarthritis, most severe in the medial compartment. Interval appearance of genu varus deformity. 3. Left suprapatellar fat pad shows bulging increase in density. -pain likely from above -tylenol and tramadol for pain -ortho recommends conservative managament, PT -tramadol and tylenol fo pain, topical med dvt prophylaxis - lovenox dnr/dni reason for continued hospitalization:dispo planning check routine labs 01/18, cbc ok, BMP mild hyponatremia 132, repeat lab today resolved issues: Fall on 11/26 , no injuries, CT Head unremarkable (outpatient ENT follow up for chronic 1.5cm pedunculated polypoid soft tissue ) out of bed to chair, check routine labs Quality Stroke Does the patient have a stroke diagnosis?: No VTE Prior VTE?: No VTE Risk Level:: Medical - moderate - high VTE Device Contraindication: Treatment Not Indicated VTE Drug Contraindication: N/A - Med Ordered
[2024-01-20 11:25] LABS: Anion Gap 13 (12-20); Carbon Dioxide 24 mmol/L (22-29); Chloride 97 mmol/L (96-108); Potassium 3.3 mmol/L (3.3-5.1); Sodium 131 mmol/L (135-145)
[2024-01-20 15:13] VITALS: BP 144/67; PULSE 65; RESP 20; TEMP 36.3; O2SAT 97
[2024-01-20 19:19] VITALS: BP 137/67; PULSE 67; RESP 18; TEMP 36.4; O2SAT 96
[2024-01-20] MEDS: Montelukast Sodium 10 MG TABLET PO (19:44)
[2024-01-20] MEDS: Atorvastatin Calcium 20 MG TABLET PO (19:44)
[2024-01-20] MEDS: traZODone HCL 50 MG TABLET PO (19:44)
[2024-01-20] MEDS: Enoxaparin Sodium 40 MG/0.4 ML SYRINGE SUBCUT (19:45)
[2024-01-20] MEDS: Melatonin 3 MG TABLET 6 MG PO (22:43)
[2024-01-21 03:21] VITALS: BP 133/61; PULSE 59; RESP 16; TEMP 36.3; O2SAT 98
[2024-01-21 08:00] VITALS: BP 121/57; PULSE 68; RESP 16; TEMP 36.2; O2SAT 95
[2024-01-21] MEDS: Fluticasone/Umeclidinium/Vilanterol 100/62.5/25 BLST.W.DEV 1 PUFF INHALE (08:13)
[2024-01-21 08:14] VITALS: PULSE 68; RESP 16; O2SAT 95
--- NOTE | 2024-01-21 08:49 | HO.PM.IMPN ---
Subjective Subjective Date of Service: 01/21/24 Interval History: Seems to aspirate while eating eggs resulting to intractable cough, normal O2 sat improved after drinking water Physical Exam Vital Signs: Vital Signs: Last Vital Signs Temp 97.2 F 01/21/24 08:00 Pulse 68 01/21/24 08:14 Resp 16 01/21/24 08:14 BP 121/57 L 01/21/24 08:00 Pulse Ox 95 01/21/24 08:00 O2 Del Method Room Air 01/21/24 08:00 O2 Flow Rate 3 12/22/23 20:00 BMI result Body Mass Index 28.0 General: AO X 3, no acute distress Resp: CTA bilateral CVS: S1,S2,RRR GI: +BS, NT, no distention Skin: No rash Neuro: motor grossly intact Psych: appropriate affect Const: Other: Constitutional : resting comfortably Cardiovascular : no JVP, no lower extremity edema Respiratory : bilateral chest movement, not in resp distress Gastrointestinal: soft, lax, Non tender Skin : Warm, Dry MSK: mild swelling in the left knee, no redness Neurological : Alert & oriented to self , No focal deficit Objective Data Active Medications Acetaminophen (Acetaminophen 325 Mg Tablet) 650 mg PO Q6H PRN PRN Reason: Pain, Mild (Pain Scale 1-3), fever or headache Last Admin: 01/20/24 19:44 Dose: 650 mg Documented By: REANNA Albuterol Sulfate (Albuterol Sulfate 90 Mcg 8 Gm Inhaler) 2 puff INHALE RQ6H PRN PRN Reason: sob Last Admin: 01/16/24 13:46 Dose: 2 puff Documented By: DOMINIQUE Comments: Patient reporting SOB. Per respiratory, unavailable to administer at this time, ana miguel RN to administer. Amlodipine Besylate (Amlodipine Besylate 5 Mg Tablet) 5 mg PO DAILY [facility]; Protocol Last Admin: 01/20/24 08:19 Dose: 5 mg Documented By: BOB Artificial Tears (Artificial Tears 15 Ml Drops) 2 drop EYE-BOTH Q4H PRN PRN Reason: Dry Eyes Last Admin: 12/21/23 03:08 Dose: 2 drop Documented By: YOMI Aspirin (Aspirin Enteric Coated 81 Mg Tablet.) 81 mg PO DAILY [facility] Last Admin: 01/20/24 08:19 Dose: 81 mg Documented By: BOB Atorvastatin Calcium (Atorvastatin Calcium 20 Mg Tablet) 20 mg PO BEDTIME [facility] Last Admin: 01/20/24 19:44 Dose: 20 mg Documented By: REANNA Calcium Carbonate (Calcium Carbonate 750 Mg Tab.Chew) 750 mg PO Q4H PRN PRN Reason: Heartburn Enoxaparin Sodium (Enoxaparin Sodium 40 Mg/0.4 Ml Syringe) 40 mg SUBCUT Q24H [facility] Last Admin: 01/20/24 19:45 Dose: 40 mg Documented By: REANNA Fluoxetine HCl (Fluoxetine Hcl 20 Mg Capsule) 20 mg PO DAILY [facility] Last Admin: 01/20/24 08:19 Dose: 20 mg Documented By: BOB Fluticasone/Umeclidinium/Vilanterol (Fluticasone/Umeclidinium/Vilanterol 100/62.5/25 Blst.W.Dev) 1 puff INHALE RDAILY [facility] Last Admin: 01/21/24 08:13 Dose: 1 puff Documented By: REJI Gabapentin (Gabapentin 100 Mg Capsule) 100 mg PO DAILY [facility] Last Admin: 01/20/24 08:19 Dose: 100 mg Documented By: BOB Hydrochlorothiazide (Hydrochlorothiazide 12.5 Mg Tablet) 12.5 mg PO DAILY [facility]; Protocol Last Admin: 01/20/24 08:18 Dose: 12.5 mg Documented By: BOB Magnesium Hydroxide (Milk Of Magnesia 30 Ml Oral.Susp) 30 ml PO DAILY PRN PRN Reason: Constipation Last Admin: 12/08/23 08:25 Dose: 30 ml Documented By: AUDI Melatonin (Melatonin 3 Mg Tablet) 6 mg PO BEDTIME PRN PRN Reason: Insomnia Last Admin: 01/20/24 22:43 Dose: 6 mg Documented By: REANNA Montelukast Sodium (Montelukast Sodium 10 Mg Tablet) 10 mg PO BEDTIME [facility] Last Admin: 01/20/24 19:44 Dose: 10 mg Documented By: REANNA Trazodone HCl (Trazodone Hcl 50 Mg Tablet) 50 mg PO BEDTIME [facility] Last Admin: 01/20/24 19:44 Dose: 50 mg Documented By: REANNA Vitamin D (Cholecalciferol (Vitamin D3) 25 Mcg Tablet) 25 mcg PO DAILY [facility] Last Admin: 01/20/24 08:19 Dose: 25 mcg Documented By: ÁLVAROEMA Labs 01/19/24 07:00 01/20/24 11:00 Labs: Laboratory Results - last 24 hr 01/20/24 11:00 Anion Gap 13 Assessment and Plan (1) Cognitive disorder: Status: Acute Plan 83M PMH copd, htn, hld, dementia unspecified, prostate ca, sent in from assisted after inappropriately interaction with another female resident. Unspecified dementia, stable, needs placement -Prozac per Psych eval for sexual inappropriateness. -trazadone Dysphagia--TALENT DIRECTOR rec NDD2, thin liquid aspiration this morning, npo, speech to reassess neuropathic pain--neurontin copd, - albuterol prn htn - amldoipine, hctz hld - statin left knee pain -uric acid nl -xray:1. No acute fracture or dislocation is seen. 2. Persistent left tibiofemoral joint osteoarthritis, most severe in the medial compartment. Interval appearance of genu varus deformity. 3. Left suprapatellar fat pad shows bulging increase in density. -pain likely from above -tylenol and tramadol for pain -ortho recommends conservative managament, PT -tramadol and tylenol fo pain, topical med dvt prophylaxis - lovenox dnr/dni reason for continued hospitalization:dispo planning check routine labs 01/18, cbc ok, BMP mild hyponatremia 132, repeat lab today resolved issues: Fall on 11/26 , no injuries, CT Head unremarkable (outpatient ENT follow up for chronic 1.5cm pedunculated polypoid soft tissue ) out of bed to chair, check routine labs Quality Stroke Does the patient have a stroke diagnosis?: No VTE Prior VTE?: No VTE Risk Level:: Medical - moderate - high VTE Device Contraindication: Treatment Not Indicated VTE Drug Contraindication: N/A - Med Ordered
--- NOTE | 2024-01-21 10:46 | MHC.SL.SWA ---
Speech Pathologist Impression: Risk of Aspiration Due to: Dysphasia Diet Status: Recommend RESTART diet of Ground/Mechanical (NDD2), Thin Liquids, pills whole with puree or liquid. Avoid eggs with breakfast meal. Supervision needed at meals to monitor and cue patient from eating too quickly. Liquid Consistency and Strategies for Safe Swallow: Liquid Intake Recommendation: Thin Liquid Intake Strategies: Small Sips Solid Food Consistency: Dietary Recommendations: Grnd/Mech Altered (NDD2) Additional Modifications to Solid Foods: Patient requires supervision to assure he is not eating too quickly and is not accessing foods that may cause him difficulty (dry eggs with Ground Diet; Chopped hard carrots, e.g.). Oral Medication Intake: Whole with Liquid Please contact the pharmacy regarding appropriate crushable or liquid drug formulations that are available whenever modified delivery is recommended. Compensatory Strategies and Precautions to be Taken for Safe Swallow: Sitting Upright (90 deg) Small Bites and Sips Alternate Liquids/Solids Rate of Ingestion Change Supervision While Eating and Drinking for Safe Swallow: Intermittent Supervision Foods to Avoid: Too large pieces of food, hard, difficult to chew solids, dry, hard or crumbly textures. Swallowing Recommended Treatments: Compens. Strategy Educat. Recommendation for Speech: Inpatient Speech Therapy Comment: 12/01/23 Patient presented with all aspects of swallow and oral motor function [facility]. Patient is able to eat independently, however is moderately confused, and given hx choking incident, would benefit from having food pre-cut and a softer texture. Recommend UPGRADE diet to Chopped/Advanced (NDD3) with THIN liquids, pills whole with liquid. 12/02/23: Patient noted to be tolerating recommended diet, was discharged from Speech on this day 12/29/23: SENIOR TALENT MANAGEMENT CONSULTANT re-contacted today with concerns about patient's swallowing. Patient was seen by SENIOR TALENT MANAGEMENT CONSULTANT 11/30-12/02/23, when first re-admitted to [facility] from [facility] for placement at another facility. Patient has remained at [facility] to date as placement has been difficult. SENIOR TALENT MANAGEMENT CONSULTANT recommended Chopped/Advanced (NDD3) with Thin Liquids, Pills whole with liquid, with issue for patient primarily behaviors associated with swallowing (eats too rapidly). Patient has continued on this diet for the past month, however recently has had at least two episode of choking/coughing when eating his meal. Last night he reportedly coughed/choked on carrots on tray; earlier this week RN reported he had difficulty with Broccoli on tray. RN further noted that patient eats at very rapid rate, shoveling food into mouth. Patient was observed taking solid textures equivalent to ground (softened cracker in puree), Chopped (hard cracker in puree) and regular (plain cracker). Patient produced a mildly prolonged period of mastication followed by a timely swallow on each texture, has some mild residual after the hard cracker, cleared by sip of liquid. However, given behaviors and difficulty noted on harder chopped textures in [facility] diet, at this time it is recommended diet be DOWGRADED to Ground Mechanical (NDD2) so that patient gets vegetables in puree form and smaller ground texture of meats, continue on THIN liquids, pills whole in puree or with water. Patient tolerating diet at follow-up 12/29. 01/21/24: Patient seen for repeat bedside swallow, made NPO secondary to choking incident on dry eggs that came with meal this morning. Swallow was determined to be at baseline, patient likely had difficulty managing the dry crumbly texture of the eggs. Recommend RESTART diet of Ground/Mechanical (NDD2), Thin Liquids, pills whole with puree or liquid. Avoid eggs with breakfast meal. Supervision needed at meals to monitor and cue patient from eating too quickly. Recommend 1 f/u by SENIOR TALENT MANAGEMENT CONSULTANT to assure patient is tolerating diet and not accessing foods that might cause him difficulty. Frequency/Duration: 1 f/u Date Range for Service Req: Timeline to reassess: Image Archivist Clinican/Clinical Fellow: No Supervisory Statement: I have reviewed and agree with the student/clinical fellow's documentation: N/A Speech Language Pathologist: Caitlin Bell M.A., [facility]-SENIOR TALENT MANAGEMENT CONSULTANT
[2024-01-21] MEDS: FLUoxetine HCl 20 MG CAPSULE PO (10:56)
[2024-01-21] MEDS: Gabapentin 100 MG CAPSULE PO (10:56)
[2024-01-21] MEDS: amLODIPine Besylate 5 MG TABLET PO (10:56)
[2024-01-21] MEDS: Cholecalciferol (Vitamin D3) 25 MCG TABLET PO (10:56)
[2024-01-21] MEDS: hydroCHLOROthiazide 12.5 MG TABLET PO (10:56)
[2024-01-21] MEDS: Aspirin Enteric Coated 81 MG TABLET.DR PO (10:56)
[2024-01-21 15:17] VITALS: BP 131/63; PULSE 60; RESP 17; TEMP 36.1; O2SAT 94
[2024-01-21 19:11] VITALS: BP 134/64; PULSE 55; RESP 16; TEMP 36.6; O2SAT 96
[2024-01-21] MEDS: Atorvastatin Calcium 20 MG TABLET PO (19:35)
[2024-01-21] MEDS: traZODone HCL 50 MG TABLET PO (19:35)
[2024-01-21] MEDS: Montelukast Sodium 10 MG TABLET PO (19:35)
[2024-01-21] MEDS: Enoxaparin Sodium 40 MG/0.4 ML SYRINGE SUBCUT (19:38)
[2024-01-21] MEDS: Acetaminophen 325 MG TABLET 650 MG PO (19:41)
[2024-01-22 03:28] VITALS: BP 123/60; PULSE 66; RESP 16; TEMP 36.6; O2SAT 98
[2024-01-22 08:00] VITALS: BP 139/65; PULSE 74; RESP 17; TEMP 36.2; O2SAT 94
[2024-01-22] MEDS: hydroCHLOROthiazide 12.5 MG TABLET PO (08:05)
[2024-01-22] MEDS: FLUoxetine HCl 20 MG CAPSULE PO (08:05)
[2024-01-22] MEDS: amLODIPine Besylate 5 MG TABLET PO (08:05)
[2024-01-22] MEDS: Aspirin Enteric Coated 81 MG TABLET.DR PO (08:06)
[2024-01-22] MEDS: Gabapentin 100 MG CAPSULE PO (08:06)
[2024-01-22] MEDS: Cholecalciferol (Vitamin D3) 25 MCG TABLET PO (08:06)
[2024-01-22] MEDS: Fluticasone/Umeclidinium/Vilanterol 100/62.5/25 BLST.W.DEV 1 PUFF INHALE (08:22)
--- NOTE | 2024-01-22 10:40 | HO.PM.IMPN ---
Subjective Subjective Date of Service: 01/22/24 Interval History: No new issues overnight, no further aspiration episodes Physical Exam Vital Signs: Vital Signs: Last Vital Signs Temp 97.1 F 01/22/24 08:00 Pulse 74 01/22/24 08:00 Resp 17 01/22/24 08:00 BP 139/65 01/22/24 08:00 Pulse Ox 94 01/22/24 08:00 O2 Del Method Room Air 01/22/24 08:00 O2 Flow Rate 3 12/22/23 20:00 BMI result Body Mass Index 28.0 Const: Other: Constitutional : resting comfortably Cardiovascular : no JVP, no lower extremity edema Respiratory : bilateral chest movement, not in resp distress Gastrointestinal: soft, lax, Non tender Skin : Warm, Dry MSK: mild swelling in the left knee, no redness Neurological : Alert & oriented to self , No focal deficit Objective Data Active Medications Acetaminophen (Acetaminophen 325 Mg Tablet) 650 mg PO Q6H PRN PRN Reason: Pain, Mild (Pain Scale 1-3), fever or headache Last Admin: 01/21/24 19:41 Dose: 650 mg Documented By: VIRGINIE Comments: per pt request Albuterol Sulfate (Albuterol Sulfate 90 Mcg 8 Gm Inhaler) 2 puff INHALE RQ6H PRN PRN Reason: sob Last Admin: 01/16/24 13:46 Dose: 2 puff Documented By: DOMINIQUE Comments: Patient reporting SOB. Per respiratory, unavailable to administer at this time, ana miguel RN to administer. Amlodipine Besylate (Amlodipine Besylate 5 Mg Tablet) 5 mg PO DAILY [facility]; Protocol Last Admin: 01/22/24 08:05 Dose: 5 mg Documented By: DARRYL Artificial Tears (Artificial Tears 15 Ml Drops) 2 drop EYE-BOTH Q4H PRN PRN Reason: Dry Eyes Last Admin: 12/21/23 03:08 Dose: 2 drop Documented By: YOMI Aspirin (Aspirin Enteric Coated 81 Mg Tablet.) 81 mg PO DAILY [facility] Last Admin: 01/22/24 08:06 Dose: 81 mg Documented By: DARRYL Atorvastatin Calcium (Atorvastatin Calcium 20 Mg Tablet) 20 mg PO BEDTIME [facility] Last Admin: 01/21/24 19:35 Dose: 20 mg Documented By: VIRGINIE Calcium Carbonate (Calcium Carbonate 750 Mg Tab.Chew) 750 mg PO Q4H PRN PRN Reason: Heartburn Enoxaparin Sodium (Enoxaparin Sodium 40 Mg/0.4 Ml Syringe) 40 mg SUBCUT Q24H [facility] Last Admin: 01/21/24 19:38 Dose: 40 mg Documented By: VIRGINIE Fluoxetine HCl (Fluoxetine Hcl 20 Mg Capsule) 20 mg PO DAILY [facility] Last Admin: 01/22/24 08:05 Dose: 20 mg Documented By: DARRYL Fluticasone/Umeclidinium/Vilanterol (Fluticasone/Umeclidinium/Vilanterol 100/62.5/25 Blst.W.Dev) 1 puff INHALE RDAILY [facility] Last Admin: 01/22/24 08:22 Dose: 1 puff Documented By: REJI Gabapentin (Gabapentin 100 Mg Capsule) 100 mg PO DAILY [facility] Last Admin: 01/22/24 08:06 Dose: 100 mg Documented By: DARRYL Hydrochlorothiazide (Hydrochlorothiazide 12.5 Mg Tablet) 12.5 mg PO DAILY [facility]; Protocol Last Admin: 01/22/24 08:05 Dose: 12.5 mg Documented By: DARRYL Magnesium Hydroxide (Milk Of Magnesia 30 Ml Oral.Susp) 30 ml PO DAILY PRN PRN Reason: Constipation Last Admin: 12/08/23 08:25 Dose: 30 ml Documented By: AUDI Melatonin (Melatonin 3 Mg Tablet) 6 mg PO BEDTIME PRN PRN Reason: Insomnia Last Admin: 01/20/24 22:43 Dose: 6 mg Documented By: REANNA Montelukast Sodium (Montelukast Sodium 10 Mg Tablet) 10 mg PO BEDTIME [facility] Last Admin: 01/21/24 19:35 Dose: 10 mg Documented By: VIRGINIE Trazodone HCl (Trazodone Hcl 50 Mg Tablet) 50 mg PO BEDTIME [facility] Last Admin: 01/21/24 19:35 Dose: 50 mg Documented By: VIRGINIE Vitamin D (Cholecalciferol (Vitamin D3) 25 Mcg Tablet) 25 mcg PO DAILY [facility] Last Admin: 01/22/24 08:06 Dose: 25 mcg Documented By: DARRYL Labs 01/19/24 07:00 01/20/24 11:00 Assessment and Plan (1) Cognitive disorder: Status: Acute Plan 83M PMH copd, htn, hld, dementia unspecified, prostate ca, sent in from [facility] after inappropriately interaction with another female resident. Unspecified dementia, stable, needs placement -Prozac per Psych eval for sexual inappropriateness. 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 No acute fracture or dislocation is seen. 2. Persistent left tibiofemoral joint osteoarthritis, most severe in the medial compartment. Interval appearance of genu varus deformity. 3. Left suprapatellar fat pad shows bulging increase in density. -pain likely from above -tylenol and tramadol for pain -ortho recommends conservative managament, PT -tramadol and tylenol fo pain, topical med dvt prophylaxis - lovenox dnr/dni reason for continued hospitalization:dispo planning check routine labs 01/18, cbc ok, BMP mild hyponatremia 132, repeat lab today resolved issues: Fall on 11/26 , no injuries, CT Head unremarkable (outpatient ENT follow up for chronic 1.5cm pedunculated polypoid soft tissue ) out of bed to chair, check routine labs Quality Stroke Does the patient have a stroke diagnosis?: No VTE Prior VTE?: No VTE Risk Level:: Medical - moderate - high VTE Device Contraindication: Treatment Not Indicated VTE Drug Contraindication: N/A - Med Ordered
[2024-01-22 15:05] VITALS: BP 131/62; PULSE 72; RESP 16; TEMP 36.1; O2SAT 95
[2024-01-22] MEDS: Acetaminophen 325 MG TABLET 650 MG PO ×2 (17:22→23:25)
[2024-01-22] MEDS: traZODone HCL 50 MG TABLET PO (19:47)
[2024-01-22] MEDS: Atorvastatin Calcium 20 MG TABLET PO (19:47)
[2024-01-22] MEDS: Enoxaparin Sodium 40 MG/0.4 ML SYRINGE SUBCUT (19:47)
[2024-01-22] MEDS: Montelukast Sodium 10 MG TABLET PO (19:47)
[2024-01-22 20:00] VITALS: BP 128/60; PULSE 70; RESP 16; TEMP 36.2; O2SAT 95
[2024-01-22] MEDS: Melatonin 3 MG TABLET 6 MG PO (23:25)
[2024-01-23 03:22] VITALS: BP 124/59; PULSE 67; RESP 18; TEMP 36.8; O2SAT 96
[2024-01-23 06:58] LABS: Anion Gap 11 (12-20); Blood Urea Nitrogen 12 mg/dL (9-16); Calcium 8.9 mg/dL (8.4-10.2); Carbon Dioxide 27 mmol/L (22-29); Chloride 97 mmol/L (96-108); Creatinine Clr Calc Pharmacy 66.4; Estimated Glomerular Filt Rate > 60; Glucose Random 97 mg/dL (60-115); Potassium 3.4 mmol/L (3.3-5.1); Sodium 132 mmol/L (135-145)
[2024-01-23 08:09] VITALS: BP 130/60; PULSE 63; RESP 18; TEMP 36.3; O2SAT 97
[2024-01-23] MEDS: Cholecalciferol (Vitamin D3) 25 MCG TABLET PO (08:34)
[2024-01-23] MEDS: Aspirin Enteric Coated 81 MG TABLET.DR PO (08:34)
[2024-01-23] MEDS: amLODIPine Besylate 5 MG TABLET PO (08:34)
[2024-01-23] MEDS: FLUoxetine HCl 20 MG CAPSULE PO (08:34)
[2024-01-23] MEDS: Gabapentin 100 MG CAPSULE PO (08:34)
[2024-01-23] MEDS: hydroCHLOROthiazide 12.5 MG TABLET PO (08:34)
[2024-01-23] MEDS: Fluticasone/Umeclidinium/Vilanterol 100/62.5/25 BLST.W.DEV 1 PUFF INHALE (08:54)
[2024-01-23 08:56] VITALS: PULSE 78; RESP 19; O2SAT 95
--- NOTE | 2024-01-23 10:29 | MHC.SL.SWA ---
Speech Pathologist Impression:Mild dysphagia Risk of Aspiration Due to: Impulsivitity when eating Dysphasia Diet Status: Recc continue with Ground/Mechanical (NDD2), Thin Liquids, pills whole with puree or liquid. Assist with setup, supervision at meals to monitor and cue patient from eating too quickly. Liquid Consistency and Strategies for Safe Swallow: Liquid Intake Recommendation: Thin Liquid Intake Strategies: Small Sips Solid Food Consistency: Dietary Recommendations: Grnd/Mech Altered (NDD2) Additional Modifications to Solid Foods: Patient requires supervision to assure he is not eating too quickly and is not accessing foods that may cause him difficulty (dry eggs with Ground Diet; Chopped hard carrots, e.g.). Oral Medication Intake: Whole with Liquid Please contact the pharmacy regarding appropriate crushable or liquid drug formulations that are available whenever modified delivery is recommended. Compensatory Strategies and Precautions to be Taken for Safe Swallow: Sitting Upright (90 deg) Small Bites and Sips Alternate Liquids/Solids Rate of Ingestion Change Supervision While Eating and Drinking for Safe Swallow: Direct Supervision Foods to Avoid: Too large pieces of food, hard, difficult to chew solids, dry, hard or crumbly textures. Swallowing Recommended Treatments: Compens. Strategy Educat. Recommendation for Speech: Inpatient Speech Therapy Comment: 12/01/23 Patient presented with all aspects of swallow and oral motor function WF. Patient is able to eat independently, however is moderately confused, and given hx choking incident, would benefit from having food pre-cut and a softer texture. Recommend UPGRADE diet to Chopped/Advanced (NDD3) with THIN liquids, pills whole with liquid. 12/02/23: Patient noted to be tolerating recommended diet, was discharged from Speech on this day 12/29/23: TALENT ENGINEER re-contacted today with concerns about patient's swallowing. Patient was seen by TALENT ENGINEER 11/30-12/02/23, when [place] [facility] [place] [facility] for placement at another facility. Patient has [place] [facility] [place] date as placement has been difficult. TALENT ENGINEER recommended Chopped/Advanced (NDD3) with Thin Liquids, Pills whole with liquid, with issue for patient primarily behaviors associated with swallowing (eats too rapidly). Patient has continued on this diet for the past month, however recently has had at least two episode of choking/coughing when eating his meal. Last night he reportedly coughed/choked on carrots on tray; earlier this week RN reported he had difficulty with Broccoli on tray. RN further noted that patient eats at very rapid rate, shoveling food into mouth. Patient was observed taking solid textures equivalent to ground (softened cracker in puree), Chopped (hard cracker in puree) and regular (plain cracker). Patient produced a mildly prolonged period of mastication followed by a timely swallow on each texture, has some mild residual after the hard cracker, cleared by sip of liquid. However, given behaviors and difficulty noted on harder chopped textures in [facility] diet, at this time it is recommended diet be DOWGRADED to Ground Mechanical (NDD2) so that patient gets vegetables in puree form and smaller ground texture of meats, continue on THIN liquids, pills whole in puree or with water. Patient tolerating diet at follow-up 12/29. 01/21/24: Patient seen for repeat bedside swallow, made NPO secondary to choking incident on dry eggs that came with meal this morning. Swallow was determined to be at baseline, patient likely had difficulty managing the dry crumbly texture of the eggs. Recommend RESTART diet of Ground/Mechanical (NDD2), Thin Liquids, pills whole with puree or liquid. Avoid eggs with breakfast meal. Supervision needed at meals to monitor and cue patient from eating too quickly. Recommend 1 f/u by TALENT ENGINEER to assure patient is tolerating diet and not accessing foods that might cause him difficulty. 01/23/24 Pt seen for followup, mild dysphagia d/t impulsivity and loose fitting dentures. [facility] NDD2 diet with thin liquids, direct supervision to assist in setup and cueing pt to slow pace. Frequency/Duration: 1 f/u Date Range for Service Req: Timeline to reassess: Deputy Prosecuting Attorney Clinican/Clinical Fellow: No Supervisory Statement: I have reviewed and agree with the student/clinical fellow's documentation: N/A Speech Language Pathologist: Eneida Montoya M.S. [facility]-TALENT ENGINEER
--- NOTE | 2024-01-23 11:22 | HO.PM.IMPN ---
Subjective Subjective Date of Service: 01/23/24 Interval History: No new issues overnight, no new issues. low sodium Physical Exam Vital Signs: Vital Signs: Last Vital Signs Temp 97.4 F 01/23/24 08:09 Pulse 78 01/23/24 08:56 Resp 19 01/23/24 08:56 BP 130/60 01/23/24 08:09 Pulse Ox 97 01/23/24 08:09 O2 Del Method Room Air 01/23/24 08:09 O2 Flow Rate 3 12/22/23 20:00 BMI result Body Mass Index 28.0 Const: Other: Constitutional : resting comfortably Cardiovascular : no JVP, no lower extremity edema Respiratory : bilateral chest movement, not in resp distress Gastrointestinal: soft, lax, Non tender Skin : Warm, Dry MSK: mild swelling in the left knee, no redness Neurological : Alert & oriented to self , No focal deficit Objective Data Active Medications Acetaminophen (Acetaminophen 325 Mg Tablet) 650 mg PO Q6H PRN PRN Reason: Pain, Mild (Pain Scale 1-3), fever or headache Last Admin: 01/22/24 23:25 Dose: 650 mg Documented By: JAN Albuterol Sulfate (Albuterol Sulfate 90 Mcg 8 Gm Inhaler) 2 puff INHALE RQ6H PRN PRN Reason: sob Last Admin: 01/16/24 13:46 Dose: 2 puff Documented By: DOMINIQUE Comments: Patient reporting SOB. Per respiratory, unavailable to administer at this time, ana miguel RN to administer. Amlodipine Besylate (Amlodipine Besylate 5 Mg Tablet) 5 mg PO DAILY [facility]; Protocol Last Admin: 01/23/24 08:34 Dose: 5 mg Documented By: DUSTY Artificial Tears (Artificial Tears 15 Ml Drops) 2 drop EYE-BOTH Q4H PRN PRN Reason: Dry Eyes Last Admin: 12/21/23 03:08 Dose: 2 drop Documented By: YOMI Aspirin (Aspirin Enteric Coated 81 Mg Tablet.) 81 mg PO DAILY [facility] Last Admin: 01/23/24 08:34 Dose: 81 mg Documented By: DUSTY Atorvastatin Calcium (Atorvastatin Calcium 20 Mg Tablet) 20 mg PO BEDTIME [facility] Last Admin: 01/22/24 19:47 Dose: 20 mg Documented By: JAN Calcium Carbonate (Calcium Carbonate 750 Mg Tab.Chew) 750 mg PO Q4H PRN PRN Reason: Heartburn Enoxaparin Sodium (Enoxaparin Sodium 40 Mg/0.4 Ml Syringe) 40 mg SUBCUT Q24H [facility] Last Admin: 01/22/24 19:47 Dose: 40 mg Documented By: JAN Fluoxetine HCl (Fluoxetine Hcl 20 Mg Capsule) 20 mg PO DAILY [facility] Last Admin: 01/23/24 08:34 Dose: 20 mg Documented By: DUSTY Fluticasone/Umeclidinium/Vilanterol (Fluticasone/Umeclidinium/Vilanterol 100/62.5/25 Blst.W.Dev) 1 puff INHALE RDAILY [facility] Last Admin: 01/23/24 08:54 Dose: 1 puff Documented By: DEN Gabapentin (Gabapentin 100 Mg Capsule) 100 mg PO DAILY [facility] Last Admin: 01/23/24 08:34 Dose: 100 mg Documented By: DUSTY Hydrochlorothiazide (Hydrochlorothiazide 12.5 Mg Tablet) 12.5 mg PO DAILY [facility]; Protocol Last Admin: 01/23/24 08:34 Dose: 12.5 mg Documented By: DUSTY Magnesium Hydroxide (Milk Of Magnesia 30 Ml Oral.Susp) 30 ml PO DAILY PRN PRN Reason: Constipation Last Admin: 12/08/23 08:25 Dose: 30 ml Documented By: AUDI Melatonin (Melatonin 3 Mg Tablet) 6 mg PO BEDTIME PRN PRN Reason: Insomnia Last Admin: 01/22/24 23:25 Dose: 6 mg Documented By: JAN Montelukast Sodium (Montelukast Sodium 10 Mg Tablet) 10 mg PO BEDTIME [facility] Last Admin: 01/22/24 19:47 Dose: 10 mg Documented By: JAN Trazodone HCl (Trazodone Hcl 50 Mg Tablet) 50 mg PO BEDTIME [facility] Last Admin: 01/22/24 19:47 Dose: 50 mg Documented By: JAN Vitamin D (Cholecalciferol (Vitamin D3) 25 Mcg Tablet) 25 mcg PO DAILY [facility] Last Admin: 01/23/24 08:34 Dose: 25 mcg Documented By: DUSTY Labs 01/19/24 07:00 01/23/24 05:54 Labs: Laboratory Results - last 24 hr 01/23/24 05:54 Hold Purple Top SEE NOTE Anion Gap 11 L Estim Creat Clear Calc 66.4 Estimated GFR > 60 Random Glucose 97 Calcium 8.9 Assessment and Plan (1) Cognitive disorder: Status: Acute Plan 83M PMH copd, htn, hld, dementia unspecified, prostate ca, sent in from [facility] after inappropriately interaction with another female resident. Unspecified dementia, stable, needs placement -Prozac per Psych eval for sexual inappropriateness. 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 Stop hctz d/t low sodium hyponatremia--132 - hld - statin left knee pain -uric acid nl -xray:1. No acute fracture or dislocation is seen. 2. Persistent left tibiofemoral joint osteoarthritis, most severe in the medial compartment. Interval appearance of genu varus deformity. 3. Left suprapatellar fat pad shows bulging increase in density. -pain likely from above -tylenol and tramadol for pain -ortho recommends conservative managament, PT -tramadol and tylenol fo pain, topical med dvt prophylaxis - lovenox dnr/dni reason for continued hospitalization:dispo planning check routine labs 01/18, cbc ok, BMP mild hyponatremia 132, repeat lab today resolved issues: Fall on 11/26 , no injuries, CT Head unremarkable (outpatient ENT follow up for chronic 1.5cm pedunculated polypoid soft tissue ) out of bed to chair, check routine labs Quality Stroke Does the patient have a stroke diagnosis?: No VTE Prior VTE?: No VTE Risk Level:: Medical - moderate - high VTE Device Contraindication: Treatment Not Indicated VTE Drug Contraindication: N/A - Med Ordered
--- NOTE | 2024-01-23 13:10 | MHC.CM.PN ---
Patient continues to await LTC placement. No bed offers at this time. [facility] is still reviewing and per liaison will call this CM with additional questions. Awaiting call. CM will continue to follow.
--- NOTE | 2024-01-23 13:11 | PC.NURSE ---
Pt calm and cooperative, no behavior concerns at this time.
[2024-01-23 15:39] VITALS: BP 125/58; PULSE 56; RESP 18; TEMP 36.7; O2SAT 96
[2024-01-23] MEDS: Acetaminophen 325 MG TABLET 650 MG PO (17:23)
[2024-01-23 19:09] VITALS: BP 138/63; PULSE 62; RESP 18; TEMP 36.6; O2SAT 96
[2024-01-23] MEDS: Montelukast Sodium 10 MG TABLET PO (19:23)
[2024-01-23] MEDS: traZODone HCL 50 MG TABLET PO (19:23)
[2024-01-23] MEDS: Atorvastatin Calcium 20 MG TABLET PO (19:23)
[2024-01-23] MEDS: Enoxaparin Sodium 40 MG/0.4 ML SYRINGE SUBCUT (19:24)
[2024-01-23] MEDS: Melatonin 3 MG TABLET 6 MG PO (21:23)
[2024-01-24 04:00] VITALS: BP 134/62; PULSE 62; RESP 16; O2SAT 97
[2024-01-24 07:49] VITALS: BP 125/89; PULSE 80; RESP 18; TEMP 37.1; O2SAT 94
[2024-01-24] MEDS: Aspirin Enteric Coated 81 MG TABLET.DR PO (08:16)
[2024-01-24] MEDS: Gabapentin 100 MG CAPSULE PO (08:16)
[2024-01-24] MEDS: Cholecalciferol (Vitamin D3) 25 MCG TABLET PO (08:16)
[2024-01-24] MEDS: FLUoxetine HCl 20 MG CAPSULE PO (08:16)
[2024-01-24] MEDS: amLODIPine Besylate 5 MG TABLET PO (08:16)
[2024-01-24] MEDS: Fluticasone/Umeclidinium/Vilanterol 100/62.5/25 BLST.W.DEV 1 PUFF INHALE (09:27)
[2024-01-24 09:28] VITALS: PULSE 79; RESP 18; O2SAT 94
--- NOTE | 2024-01-24 09:39 | P.PNIM_ITS ---
Subjective Subjective Date of Service: 01/24/24 Interval History: No new issues Physical Exam 2 Vital Signs: Vital Signs: Last Vital Signs Temp 98.7 F 01/24/24 07:49 Pulse 79 01/24/24 09:28 Resp 18 01/24/24 09:28 BP 125/89 01/24/24 07:49 Pulse Ox 94 01/24/24 07:49 O2 Del Method Room Air 01/24/24 07:49 O2 Flow Rate 3 12/22/23 20:00 BMI result Body Mass Index 28.0 Const: Other: General: AO X 3, no acute distress Resp: CTA bilateral CVS: S1,S2,RRR GI: +BS, NT, no distention Skin: No rash Neuro: motor grossly intact Psych: appropriate affect Objective Data Active Medications Acetaminophen (Acetaminophen 325 Mg Tablet) 650 mg PO Q6H PRN PRN Reason: Pain, Mild (Pain Scale 1-3), fever or headache Last Admin: 01/23/24 17:23 Dose: 650 mg Documented By: DUSTY Albuterol Sulfate (Albuterol Sulfate 90 Mcg 8 Gm Inhaler) 2 puff INHALE RQ6H PRN PRN Reason: sob Last Admin: 01/16/24 13:46 Dose: 2 puff Documented By: DOMINIQUE Comments: Patient reporting SOB. Per respiratory, unavailable to administer at this time, ana miguel RN to administer. Amlodipine Besylate (Amlodipine Besylate 5 Mg Tablet) 5 mg PO DAILY [facility]; Protocol Last Admin: 01/24/24 08:16 Dose: 5 mg Documented By: YEN Artificial Tears (Artificial Tears 15 Ml Drops) 2 drop EYE-BOTH Q4H PRN PRN Reason: Dry Eyes Last Admin: 12/21/23 03:08 Dose: 2 drop Documented By: YOMI Aspirin (Aspirin Enteric Coated 81 Mg Tablet.) 81 mg PO DAILY [facility] Last Admin: 01/24/24 08:16 Dose: 81 mg Documented By: YEN Atorvastatin Calcium (Atorvastatin Calcium 20 Mg Tablet) 20 mg PO BEDTIME [facility] Last Admin: 01/23/24 19:23 Dose: 20 mg Documented By: JAN Calcium Carbonate (Calcium Carbonate 750 Mg Tab.Chew) 750 mg PO Q4H PRN PRN Reason: Heartburn Enoxaparin Sodium (Enoxaparin Sodium 40 Mg/0.4 Ml Syringe) 40 mg SUBCUT Q24H [facility] Last Admin: 01/23/24 19:24 Dose: 40 mg Documented By: JAN Fluoxetine HCl (Fluoxetine Hcl 20 Mg Capsule) 20 mg PO DAILY [facility] Last Admin: 01/24/24 08:16 Dose: 20 mg Documented By: YEN Fluticasone/Umeclidinium/Vilanterol (Fluticasone/Umeclidinium/Vilanterol 100/62.5/25 Blst.W.Dev) 1 puff INHALE RDAILY [facility] Last Admin: 01/24/24 09:27 Dose: 1 puff Documented By: DEN Gabapentin (Gabapentin 100 Mg Capsule) 100 mg PO DAILY [facility] Last Admin: 01/24/24 08:16 Dose: 100 mg Documented By: YEN Magnesium Hydroxide (Milk Of Magnesia 30 Ml Oral.Susp) 30 ml PO DAILY PRN PRN Reason: Constipation Last Admin: 12/08/23 08:25 Dose: 30 ml Documented By: AUDI Melatonin (Melatonin 3 Mg Tablet) 6 mg PO BEDTIME PRN PRN Reason: Insomnia Last Admin: 01/23/24 21:23 Dose: 6 mg Documented By: JAN Montelukast Sodium (Montelukast Sodium 10 Mg Tablet) 10 mg PO BEDTIME [facility] Last Admin: 01/23/24 19:23 Dose: 10 mg Documented By: JAN Trazodone HCl (Trazodone Hcl 50 Mg Tablet) 50 mg PO BEDTIME [facility] Last Admin: 01/23/24 19:23 Dose: 50 mg Documented By: JAN Vitamin D (Cholecalciferol (Vitamin D3) 25 Mcg Tablet) 25 mcg PO DAILY [facility] Last Admin: 01/24/24 08:16 Dose: 25 mcg Documented By: YEN Labs 01/19/24 07:00 01/23/24 05:54 Assessment and Plan (1) Cognitive disorder: Status: Acute Plan 83M PMH copd, htn, hld, dementia unspecified, prostate ca, sent in from [facility] after inappropriately interaction with another female resident. Unspecified dementia, stable, needs placement -Prozac per Psych eval for sexual inappropriateness. 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 Stop hctz d/t low sodium hyponatremia--132 -probably to hctz, stopped, follow sodium hld - statin left knee pain -uric acid nl -xray:1. No acute fracture or dislocation is seen. 2. Persistent left tibiofemoral joint osteoarthritis, most severe in the medial compartment. Interval appearance of genu varus deformity. 3. Left suprapatellar fat pad shows bulging increase in density. -pain likely from above -tylenol and tramadol for pain -ortho recommends conservative managament, PT -tramadol and tylenol fo pain, topical med dvt prophylaxis - lovenox dnr/dni reason for continued hospitalization:dispo planning check routine labs 01/18, cbc ok, BMP mild hyponatremia 132, repeat lab today resolved issues: Fall on 11/26 , no injuries, CT Head unremarkable (outpatient ENT follow up for chronic 1.5cm pedunculated polypoid soft tissue ) out of bed to chair, check routine labs Quality Stroke Does the patient have a stroke diagnosis?: No VTE Prior VTE?: No VTE Risk Level:: Medical - moderate - high VTE Device Contraindication: Treatment Not Indicated VTE Drug Contraindication: N/A - Med Ordered
[2024-01-24 15:13] VITALS: BP 130/60; PULSE 54; RESP 20; TEMP 36.4; O2SAT 96
--- NOTE | 2024-01-24 16:05 | MHC.CM.PN ---
Patient continues to await LTC placement. KALIN rec'd message from January, clinical rv parts and service director, for [facility] ([phone]) requesting more information. CM called back and LM x2.
--- NOTE | 2024-01-24 16:22 | PC.NURSE ---
Pt calm and cooperative, Pt OOB with sera steady, no behaviors noted.
[2024-01-24] MEDS: Acetaminophen 325 MG TABLET 650 MG PO (17:16)
[2024-01-24 19:06] VITALS: BP 117/71; PULSE 70; RESP 14; TEMP 36.9; O2SAT 97
[2024-01-24] MEDS: traZODone HCL 50 MG TABLET PO (19:57)
[2024-01-24] MEDS: Atorvastatin Calcium 20 MG TABLET PO (19:58)
[2024-01-24] MEDS: Montelukast Sodium 10 MG TABLET PO (19:58)
[2024-01-24] MEDS: Enoxaparin Sodium 40 MG/0.4 ML SYRINGE SUBCUT (19:58)
--- NOTE | 2024-01-24 20:36 | PC.NURSE ---
Pt resting in bed with book in hand, took medications without incident, calm and cooperative with care, no signs of distress noted, breathing even and unlabored.
[2024-01-25 03:04] VITALS: BP 152/67; PULSE 61; RESP 18; TEMP 36.7; O2SAT 97
[2024-01-25 06:54] VITALS: BP 137/65; PULSE 66; RESP 16; TEMP 36.6; O2SAT 96
[2024-01-25 08:41] VITALS: PULSE 66; RESP 16; O2SAT 96
[2024-01-25] MEDS: Fluticasone/Umeclidinium/Vilanterol 100/62.5/25 BLST.W.DEV 1 PUFF INHALE (08:41)
[2024-01-25] MEDS: amLODIPine Besylate 5 MG TABLET PO (09:07)
[2024-01-25] MEDS: Cholecalciferol (Vitamin D3) 25 MCG TABLET PO (09:07)
[2024-01-25] MEDS: Aspirin Enteric Coated 81 MG TABLET.DR PO (09:08)
[2024-01-25] MEDS: FLUoxetine HCl 20 MG CAPSULE PO (09:08)
[2024-01-25] MEDS: Gabapentin 100 MG CAPSULE PO (09:08)
--- NOTE | 2024-01-25 09:40 | HO.PM.IMPN ---
Subjective Subjective Date of Service: 01/25/24 Interval History: No new issues, Physical Exam Vital Signs: Vital Signs: Last Vital Signs Temp 97.9 F 01/25/24 06:54 Pulse 66 01/25/24 08:41 Resp 16 01/25/24 08:41 BP 137/65 01/25/24 06:54 Pulse Ox 96 01/25/24 06:54 O2 Del Method Room Air 01/25/24 06:54 O2 Flow Rate 3 12/22/23 20:00 BMI result Body Mass Index 28.0 Const: Other: General: AO X 3, no acute distress Resp: CTA bilateral CVS: S1,S2,RRR GI: +BS, NT, no distention Skin: No rash Neuro: motor grossly intact Psych: appropriate affect Objective Data Active Medications Acetaminophen (Acetaminophen 325 Mg Tablet) 650 mg PO Q6H PRN PRN Reason: Pain, Mild (Pain Scale 1-3), fever or headache Last Admin: 01/24/24 17:16 Dose: 650 mg Documented By: DUSTY Albuterol Sulfate (Albuterol Sulfate 90 Mcg 8 Gm Inhaler) 2 puff INHALE RQ6H PRN PRN Reason: sob Last Admin: 01/16/24 13:46 Dose: 2 puff Documented By: DOMINIQUE Comments: Patient reporting SOB. Per respiratory, unavailable to administer at this time, ana miguel RN to administer. Amlodipine Besylate (Amlodipine Besylate 5 Mg Tablet) 5 mg PO DAILY [facility]; Protocol Last Admin: 01/25/24 09:07 Dose: 5 mg Documented By: RAGHAVENDRA Artificial Tears (Artificial Tears 15 Ml Drops) 2 drop EYE-BOTH Q4H PRN PRN Reason: Dry Eyes Last Admin: 12/21/23 03:08 Dose: 2 drop Documented By: YOMI Aspirin (Aspirin Enteric Coated 81 Mg Tablet.) 81 mg PO DAILY [facility] Last Admin: 01/25/24 09:08 Dose: 81 mg Documented By: RAGHAVENDRA Atorvastatin Calcium (Atorvastatin Calcium 20 Mg Tablet) 20 mg PO BEDTIME [facility] Last Admin: 01/24/24 19:58 Dose: 20 mg Documented By: DUSTY Calcium Carbonate (Calcium Carbonate 750 Mg Tab.Chew) 750 mg PO Q4H PRN PRN Reason: Heartburn Enoxaparin Sodium (Enoxaparin Sodium 40 Mg/0.4 Ml Syringe) 40 mg SUBCUT Q24H [facility] Last Admin: 01/24/24 19:58 Dose: 40 mg Documented By: DUSTY Fluoxetine HCl (Fluoxetine Hcl 20 Mg Capsule) 20 mg PO DAILY [facility] Last Admin: 01/25/24 09:08 Dose: 20 mg Documented By: RAGHAVENDRA Fluticasone/Umeclidinium/Vilanterol (Fluticasone/Umeclidinium/Vilanterol 100/62.5/25 Blst.W.Dev) 1 puff INHALE RDAILY [facility] Last Admin: 01/25/24 08:41 Dose: 1 puff Documented By: ERJI Gabapentin (Gabapentin 100 Mg Capsule) 100 mg PO DAILY [facility] Last Admin: 01/25/24 09:08 Dose: 100 mg Documented By: RAGHAVENDRA Magnesium Hydroxide (Milk Of Magnesia 30 Ml Oral.Susp) 30 ml PO DAILY PRN PRN Reason: Constipation Last Admin: 12/08/23 08:25 Dose: 30 ml Documented By: AUDI Melatonin (Melatonin 3 Mg Tablet) 6 mg PO BEDTIME PRN PRN Reason: Insomnia Last Admin: 01/23/24 21:23 Dose: 6 mg Documented By: JAN Montelukast Sodium (Montelukast Sodium 10 Mg Tablet) 10 mg PO BEDTIME [facility] Last Admin: 01/24/24 19:58 Dose: 10 mg Documented By: DUSTY Trazodone HCl (Trazodone Hcl 50 Mg Tablet) 50 mg PO BEDTIME [facility] Last Admin: 01/24/24 19:57 Dose: 50 mg Documented By: DUSTY Vitamin D (Cholecalciferol (Vitamin D3) 25 Mcg Tablet) 25 mcg PO DAILY [facility] Last Admin: 01/25/24 09:07 Dose: 25 mcg Documented By: RAGHAVENDRA Labs 01/19/24 07:00 01/23/24 05:54 Assessment and Plan (1) Cognitive disorder: Status: Acute Plan 83M PMH copd, htn, hld, dementia unspecified, prostate ca, [facility] in from [facility] after inappropriately interaction with another female resident. Unspecified dementia, stable, needs placement -Prozac per Psych eval for sexual inappropriateness. 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 Stop hctz d/t low sodium hypOnatremia--132 -probably to hctz, stopped, follow sodium hld - statin left knee pain -uric acid nl -xray:1. No acute fracture or dislocation is seen. 2. Persistent left tibiofemoral joint osteoarthritis, most severe in the medial compartment. Interval appearance of genu varus deformity. 3. Left suprapatellar fat pad shows bulging increase in density. -pain likely from above -tylenol and tramadol for pain -ortho recommends conservative managament, PT -tramadol and tylenol fo pain, topical med dvt prophylaxis - lovenox dnr/dni reason for continued hospitalization:dispo planning check routine labs 01/18, cbc ok, BMP mild hyponatremia 132, repeat lab today resolved issues: Fall on 11/26 , no injuries, CT Head unremarkable (outpatient ENT follow up for chronic 1.5cm pedunculated polypoid soft tissue ) out of bed to chair, check routine labs Quality Stroke Does the patient have a stroke diagnosis?: No VTE Prior VTE?: No VTE Risk Level:: Medical - moderate - high VTE Device Contraindication: Treatment Not Indicated VTE Drug Contraindication: N/A - Med Ordered
--- NOTE | 2024-01-25 10:32 | MHC.SL.SWA ---
Speech Pathologist Impression: Mild to moderate oropharyngeal dysphagia Risk of Aspiration Due to: Difficulty coordinating efficient timing over consecutive swallows Intermittent decreased mentation d/t dx of dementia Dysphasia Diet Status: Recc continue with Ground/Mechanical (NDD2), Thin Liquids, pills whole with puree or liquid. Assist with setup, supervision at meals to monitor and cue patient from eating too quickly. Liquid Consistency and Strategies for Safe Swallow: Liquid Intake Recommendation: Thin Liquid Intake Strategies: Small Sips Solid Food Consistency: Dietary Recommendations: Grnd/Mech Altered (NDD2) Additional Modifications to Solid Foods: Patient requires supervision to assure he is not eating too quickly and is not accessing foods that may cause him difficulty (dry eggs with Ground Diet; Chopped hard carrots, e.g.). Oral Medication Intake: Whole with Puree Please contact the pharmacy regarding appropriate crushable or liquid drug formulations that are available whenever modified delivery is recommended. Compensatory Strategies and Precautions to be Taken for Safe Swallow: Sitting Upright (90 deg) Small Bites and Sips Alternate Liquids/Solids Rate of Ingestion Change Supervision While Eating and Drinking for Safe Swallow: Total Supervision (1:1) Foods to Avoid: Too large pieces of food, hard, difficult to chew solids, dry, hard or crumbly textures. Swallowing Recommended Treatments: Compens. Strategy Educat. Recommendation for Speech: Inpatient Speech Therapy 01/25/24 Recc continued 1:1 supervision, aspiration precautions (upright positioning, slow pacing, alternating consistencies), NDD2 diet with thins, meds whole in puree. Pt with one episode of coughing/throat clear subsequent to consecutive swallows when pills administred with water. Pt adequately cleared with forceful cough/throat-clear/re-swallow. No overt s/s of aspiration with multiple boluses during meal, slow pacing needed to facilitate pt coordination of oral and pharyngeal phases of swallow. ST to follow. Frequency/Duration: 1 f/u Date Range for Service Req: Timeline to reassess: Brickmason Apprentice Clinican/Clinical Fellow: No Supervisory Statement: I have reviewed and agree with the student/clinical fellow's documentation: N/A Speech Language Pathologist: Eneida Montoya M.S. CCC-COMPUTER NETWORK ENGINEER
[2024-01-25 10:45] LABS: Anion Gap 12 (12-20); Blood Urea Nitrogen 10 mg/dL (9-16); Calcium 8.8 mg/dL (8.4-10.2); Carbon Dioxide 29 mmol/L (22-29); Chloride 96 mmol/L (96-108); Creatinine Clr Calc Pharmacy 64.1; Estimated Glomerular Filt Rate > 60; Glucose Random 128 mg/dL (60-115); Potassium 3.5 mmol/L (3.3-5.1); Sodium 133 mmol/L (135-145)
[2024-01-25] MEDS: Acetaminophen 325 MG TABLET 650 MG PO (12:47)
--- NOTE | 2024-01-25 14:07 | MHC.CM.PN ---
Patient awaiting LTC placement with no bed offers at this time. 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 [facility]: Initial referral sent 01/15. Per Dotty in admissions still on wait list to be reviewed, not assigned a reviewer at this time. [facility]: Dipika Quezada, on site and met patient. No beds available at this time. Plan to continue w/ weekly updates until a bed is available.
[2024-01-25 15:10] VITALS: BP 128/62; PULSE 57; RESP 20; TEMP 36.5; O2SAT 96
[2024-01-25 19:02] VITALS: BP 137/64; PULSE 70; RESP 20; TEMP 36.6; O2SAT 95
[2024-01-25] MEDS: Enoxaparin Sodium 40 MG/0.4 ML SYRINGE SUBCUT (20:09)
[2024-01-25] MEDS: traZODone HCL 50 MG TABLET PO (20:10)
[2024-01-25] MEDS: Atorvastatin Calcium 20 MG TABLET PO (20:10)
[2024-01-25] MEDS: Montelukast Sodium 10 MG TABLET PO (20:10)
[2024-01-26 03:30] VITALS: BP 113/56; PULSE 62; RESP 14; TEMP 36.5; O2SAT 96
[2024-01-26 07:55] VITALS: PULSE 70; RESP 16; O2SAT 98
[2024-01-26] MEDS: Fluticasone/Umeclidinium/Vilanterol 100/62.5/25 BLST.W.DEV 1 PUFF INHALE (07:55)
[2024-01-26 08:00] VITALS: BP 119/57; PULSE 63; RESP 14; TEMP 36.5; O2SAT 94
[2024-01-26] MEDS: Cholecalciferol (Vitamin D3) 25 MCG TABLET PO (08:19)
[2024-01-26] MEDS: Aspirin Enteric Coated 81 MG TABLET.DR PO (08:19)
[2024-01-26] MEDS: Gabapentin 100 MG CAPSULE PO (08:19)
[2024-01-26] MEDS: FLUoxetine HCl 20 MG CAPSULE PO (08:19)
[2024-01-26] MEDS: amLODIPine Besylate 5 MG TABLET PO (08:20)
--- NOTE | 2024-01-26 13:38 | HO.PM.IMPN ---
Subjective Subjective Date of Service: 01/26/24 Interval History: no new c/o Physical Exam Vital Signs: Vital Signs: Last Vital Signs Temp 97.7 F 01/26/24 08:00 Pulse 63 01/26/24 08:00 Resp 14 01/26/24 08:00 BP 119/57 L 01/26/24 08:00 Pulse Ox 94 01/26/24 08:00 O2 Del Method Room Air 01/26/24 08:00 O2 Flow Rate 3 12/22/23 20:00 BMI result Body Mass Index 28.0 General: Awake ,alert, no acute distress Resp: CTA bilateral CVS: S1,S2,RRR GI: +BS, NT, no distention Skin: No rash Neuro: motor grossly intact Psych: appropriate affect Objective Data Active Medications Acetaminophen (Acetaminophen 325 Mg Tablet) 650 mg PO Q6H PRN PRN Reason: Pain, Mild (Pain Scale 1-3), fever or headache Last Admin: 01/25/24 12:47 Dose: 650 mg Documented By: RAGHAVENDRA Albuterol Sulfate (Albuterol Sulfate 90 Mcg 8 Gm Inhaler) 2 puff INHALE RQ6H PRN PRN Reason: sob Last Admin: 01/16/24 13:46 Dose: 2 puff Documented By: DOMINIQUE Comments: Patient reporting SOB. Per respiratory, unavailable to administer at this time, ana miguel RN to administer. Amlodipine Besylate (Amlodipine Besylate 5 Mg Tablet) 5 mg PO DAILY [facility]; Protocol Last Admin: 01/26/24 08:20 Dose: 5 mg Documented By: RAGHAVENDRA Artificial Tears (Artificial Tears 15 Ml Drops) 2 drop EYE-BOTH Q4H PRN PRN Reason: Dry Eyes Last Admin: 12/21/23 03:08 Dose: 2 drop Documented By: YOMI Aspirin (Aspirin Enteric Coated 81 Mg Tablet.) 81 mg PO DAILY [facility] Last Admin: 01/26/24 08:19 Dose: 81 mg Documented By: RAGHAVENDRA Atorvastatin Calcium (Atorvastatin Calcium 20 Mg Tablet) 20 mg PO BEDTIME [facility] Last Admin: 01/25/24 20:10 Dose: 20 mg Documented By: ODRISM Calcium Carbonate (Calcium Carbonate 750 Mg Tab.Chew) 750 mg PO Q4H PRN PRN Reason: Heartburn Enoxaparin Sodium (Enoxaparin Sodium 40 Mg/0.4 Ml Syringe) 40 mg SUBCUT Q24H [facility] Last Admin: 01/25/24 20:09 Dose: 40 mg Documented By: STEPHANIE Fluoxetine HCl (Fluoxetine Hcl 20 Mg Capsule) 20 mg PO DAILY [facility] Last Admin: 01/26/24 08:19 Dose: 20 mg Documented By: RAGHAVENDRA Fluticasone/Umeclidinium/Vilanterol (Fluticasone/Umeclidinium/Vilanterol 100/62.5/25 Blst.W.Dev) 1 puff INHALE RDAILY [facility] Last Admin: 01/26/24 07:55 Dose: 1 puff Documented By: NOÉ Gabapentin (Gabapentin 100 Mg Capsule) 100 mg PO DAILY [facility] Last Admin: 01/26/24 08:19 Dose: 100 mg Documented By: RAGHAVENDRA Magnesium Hydroxide (Milk Of Magnesia 30 Ml Oral.Susp) 30 ml PO DAILY PRN PRN Reason: Constipation Last Admin: 12/08/23 08:25 Dose: 30 ml Documented By: AUDI Melatonin (Melatonin 3 Mg Tablet) 6 mg PO BEDTIME PRN PRN Reason: Insomnia Last Admin: 01/23/24 21:23 Dose: 6 mg Documented By: JAN Montelukast Sodium (Montelukast Sodium 10 Mg Tablet) 10 mg PO BEDTIME [facility] Last Admin: 01/25/24 20:10 Dose: 10 mg Documented By: STEPHANIE Trazodone HCl (Trazodone Hcl 50 Mg Tablet) 50 mg PO BEDTIME [facility] Last Admin: 01/25/24 20:10 Dose: 50 mg Documented By: STEPHANIE Vitamin D (Cholecalciferol (Vitamin D3) 25 Mcg Tablet) 25 mcg PO DAILY [facility] Last Admin: 01/26/24 08:19 Dose: 25 mcg Documented By: RAGHAVENDRA Labs 01/19/24 07:00 01/25/24 10:07 Assessment and Plan (1) Cognitive disorder: Status: Acute Plan 83M PMH copd, htn, hld, dementia unspecified, prostate ca, sent in from snf after inappropriately interaction with another female resident. Unspecified dementia, stable, needs placement -Prozac per Psych eval for sexual inappropriateness. 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 Stop hctz d/t low sodium hypOnatremia--132 -probably to hctz, stopped, follow sodium hld - statin left knee pain -uric acid nl -xray:1. No acute fracture or dislocation is seen. 2. Persistent left tibiofemoral joint osteoarthritis, most severe in the medial compartment. Interval appearance of genu varus deformity. 3. Left suprapatellar fat pad shows bulging increase in density. -pain likely from above -tylenol and tramadol for pain -ortho recommends conservative managament, PT -tramadol and tylenol fo pain, topical med dvt prophylaxis - lovenox dnr/dni reason for continued hospitalization:dispo planning check routine labs 01/18, cbc ok, BMP mild hyponatremia 132, repeat lab today out of bed to chair, check routine labs Quality Stroke Does the patient have a stroke diagnosis?: No VTE Prior VTE?: No VTE Risk Level:: Medical - moderate - high VTE Device Contraindication: Treatment Not Indicated VTE Drug Contraindication: N/A - Med Ordered
[2024-01-26 15:29] VITALS: BP 142/65; PULSE 71; RESP 20; TEMP 36.4; O2SAT 97
--- NOTE | 2024-01-26 16:16 | MHC.CM.PN ---
CM spoke w/ January, bottom turner for [facility]. January will recommend bed offer from [facility]. Will require a PASRR and an on site clinical eval (02/06). Update sent to liaison via [facility].
[2024-01-26] MEDS: Enoxaparin Sodium 40 MG/0.4 ML SYRINGE SUBCUT (19:53)
[2024-01-26] MEDS: traZODone HCL 50 MG TABLET PO (19:54)
[2024-01-26] MEDS: Atorvastatin Calcium 20 MG TABLET PO (19:54)
[2024-01-26] MEDS: Montelukast Sodium 10 MG TABLET PO (19:54)
[2024-01-26 20:00] VITALS: BP 140/68; PULSE 66; RESP 15; TEMP 36.6; O2SAT 96
[2024-01-27 03:32] VITALS: BP 125/60; PULSE 62; RESP 15; TEMP 36.5; O2SAT 96
[2024-01-27 06:58] VITALS: BP 139/70; PULSE 68; RESP 17; TEMP 36.6; O2SAT 97
[2024-01-27] MEDS: Fluticasone/Umeclidinium/Vilanterol 100/62.5/25 BLST.W.DEV 1 PUFF INHALE (07:41)
[2024-01-27 07:42] VITALS: PULSE 80; RESP 14; O2SAT 91
[2024-01-27] MEDS: Acetaminophen 325 MG TABLET 650 MG PO (08:58)
[2024-01-27 08:59] VITALS: BP 139/70
[2024-01-27] MEDS: FLUoxetine HCl 20 MG CAPSULE PO (08:59)
[2024-01-27] MEDS: Aspirin Enteric Coated 81 MG TABLET.DR PO (08:59)
[2024-01-27] MEDS: amLODIPine Besylate 5 MG TABLET PO (08:59)
[2024-01-27] MEDS: Gabapentin 100 MG CAPSULE PO (08:59)
[2024-01-27] MEDS: Cholecalciferol (Vitamin D3) 25 MCG TABLET PO (08:59)
--- NOTE | 2024-01-27 11:38 | MHC.CM.PN ---
MARYANRR completed and sent to [facility]. On site clinical eval scheduled for 02/06. No response from [facility]. No bed at [facility]. CM will continue to follow.
[2024-01-27 15:36] VITALS: BP 126/66; PULSE 60; RESP 20; TEMP 36.3; O2SAT 97
--- NOTE | 2024-01-27 16:25 | P.PNIM_ITS ---
Subjective Subjective Date of Service: 01/27/24 Interval History: no new c/o Review of Systems no new night events Physical Exam 2 Vital Signs: Vital Signs: Last Vital Signs Temp 97.4 F 01/27/24 15:36 Pulse 60 01/27/24 15:36 Resp 20 01/27/24 15:36 BP 126/66 01/27/24 15:36 Pulse Ox 97 01/27/24 15:36 O2 Del Method Room Air 01/27/24 15:36 O2 Flow Rate 3 12/22/23 20:00 BMI result Body Mass Index 28.0 General: Awake ,alert, no acute distress Resp: CTA bilateral CVS: S1,S2,RRR GI: +BS, NT, no distention Skin: No rash Neuro: motor grossly intact Psych: appropriate affect Objective Data Active Medications Acetaminophen (Acetaminophen 325 Mg Tablet) 650 mg PO Q6H PRN PRN Reason: Pain, Mild (Pain Scale 1-3), fever or headache Last Admin: 01/27/24 08:58 Dose: 650 mg Documented By: NANDO Albuterol Sulfate (Albuterol Sulfate 90 Mcg 8 Gm Inhaler) 2 puff INHALE RQ6H PRN PRN Reason: sob Last Admin: 01/16/24 13:46 Dose: 2 puff Documented By: DOMINIQUE Comments: Patient reporting SOB. Per respiratory, unavailable to administer at this time, ana miguel RN to administer. Amlodipine Besylate (Amlodipine Besylate 5 Mg Tablet) 5 mg PO DAILY [facility]; Protocol Last Admin: 01/27/24 08:59 Dose: 5 mg Documented By: NANDO Artificial Tears (Artificial Tears 15 Ml Drops) 2 drop EYE-BOTH Q4H PRN PRN Reason: Dry Eyes Last Admin: 12/21/23 03:08 Dose: 2 drop Documented By: YOMI Aspirin (Aspirin Enteric Coated 81 Mg Tablet.) 81 mg PO DAILY [facility] Last Admin: 01/27/24 08:59 Dose: 81 mg Documented By: NANDO Atorvastatin Calcium (Atorvastatin Calcium 20 Mg Tablet) 20 mg PO BEDTIME [facility] Last Admin: 01/26/24 19:54 Dose: 20 mg Documented By: LM Calcium Carbonate (Calcium Carbonate 750 Mg Tab.Chew) 750 mg PO Q4H PRN PRN Reason: Heartburn Enoxaparin Sodium (Enoxaparin Sodium 40 Mg/0.4 Ml Syringe) 40 mg SUBCUT Q24H [facility] Last Admin: 01/26/24 19:53 Dose: 40 mg Documented By: LM Fluoxetine HCl (Fluoxetine Hcl 20 Mg Capsule) 20 mg PO DAILY [facility] Last Admin: 01/27/24 08:59 Dose: 20 mg Documented By: NANDO Fluticasone/Umeclidinium/Vilanterol (Fluticasone/Umeclidinium/Vilanterol 100/62.5/25 Blst.W.Dev) 1 puff INHALE RDAILY [facility] Last Admin: 01/27/24 07:41 Dose: 1 puff Documented By: DIANNA Gabapentin (Gabapentin 100 Mg Capsule) 100 mg PO DAILY [facility] Last Admin: 01/27/24 08:59 Dose: 100 mg Documented By: NANDO Magnesium Hydroxide (Milk Of Magnesia 30 Ml Oral.Susp) 30 ml PO DAILY PRN PRN Reason: Constipation Last Admin: 12/08/23 08:25 Dose: 30 ml Documented By: AUDI Melatonin (Melatonin 3 Mg Tablet) 6 mg PO BEDTIME PRN PRN Reason: Insomnia Last Admin: 01/23/24 21:23 Dose: 6 mg Documented By: JAN Montelukast Sodium (Montelukast Sodium 10 Mg Tablet) 10 mg PO BEDTIME [facility] Last Admin: 01/26/24 19:54 Dose: 10 mg Documented By: LM Trazodone HCl (Trazodone Hcl 50 Mg Tablet) 50 mg PO BEDTIME [facility] Last Admin: 01/26/24 19:54 Dose: 50 mg Documented By: LM Vitamin D (Cholecalciferol (Vitamin D3) 25 Mcg Tablet) 25 mcg PO DAILY [facility] Last Admin: 01/27/24 08:59 Dose: 25 mcg Documented By: NANDO Labs 01/19/24 07:00 01/25/24 10:07 Assessment and Plan (1) Cognitive disorder: Status: Acute Plan 83M PMH copd, htn, hld, dementia unspecified, prostate ca, sent in from care home after inappropriately interaction with another female resident. Unspecified dementia, stable, needs placement -Prozac per Psych eval for sexual inappropriateness. 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 Stop hctz d/t low sodium hypOnatremia--132 -probably to hctz, stopped, follow sodium hld - statin left knee pain -uric acid nl -xray:1. No acute fracture or dislocation is seen. 2. Persistent left tibiofemoral joint osteoarthritis, most severe in the medial compartment. Interval appearance of genu varus deformity. 3. Left suprapatellar fat pad shows bulging increase in density. -pain likely from above -tylenol and tramadol for pain -ortho recommends conservative managament, PT -tramadol and tylenol fo pain, topical med dvt prophylaxis - lovenox dnr/dni reason for continued hospitalization:dispo planning check routine labs 01/18, cbc ok, BMP mild hyponatremia 132, repeat lab today out of bed to chair, check routine labs Quality Stroke Does the patient have a stroke diagnosis?: No VTE Prior VTE?: No VTE Risk Level:: Medical - moderate - high VTE Device Contraindication: Treatment Not Indicated VTE Drug Contraindication: N/A - Med Ordered
[2024-01-27 19:26] VITALS: BP 136/60; PULSE 70; RESP 20; TEMP 36.4; O2SAT 96
[2024-01-27] MEDS: traZODone HCL 50 MG TABLET PO (19:56)
[2024-01-27] MEDS: Enoxaparin Sodium 40 MG/0.4 ML SYRINGE SUBCUT (19:56)
[2024-01-27] MEDS: Montelukast Sodium 10 MG TABLET PO (19:56)
[2024-01-27] MEDS: Atorvastatin Calcium 20 MG TABLET PO (19:56)
[2024-01-28 03:27] VITALS: BP 123/68; PULSE 63; RESP 18; TEMP 36.2; O2SAT 96
[2024-01-28 07:24] VITALS: BP 160/72; PULSE 63; RESP 18; TEMP 36.8; O2SAT 98
[2024-01-28] MEDS: Gabapentin 100 MG CAPSULE PO (08:10)
[2024-01-28] MEDS: Cholecalciferol (Vitamin D3) 25 MCG TABLET PO (08:10)
[2024-01-28] MEDS: amLODIPine Besylate 5 MG TABLET PO (08:10)
[2024-01-28] MEDS: Aspirin Enteric Coated 81 MG TABLET.DR PO (08:10)
[2024-01-28] MEDS: FLUoxetine HCl 20 MG CAPSULE PO (08:10)
--- NOTE | 2024-01-28 11:46 | P.PNIM_ITS ---
Subjective Subjective Date of Service: 01/28/24 Interval History: no new c/o Review of Systems no new night events Physical Exam 2 Vital Signs: Vital Signs: Last Vital Signs Temp 98.2 F 01/28/24 07:24 Pulse 63 01/28/24 07:24 Resp 18 01/28/24 07:24 BP 160/72 H 01/28/24 07:24 Pulse Ox 98 01/28/24 07:24 O2 Del Method Room Air 01/28/24 07:24 O2 Flow Rate 3 12/22/23 20:00 BMI result Body Mass Index 28.0 General: Awake ,alert, no acute distress Resp: CTA bilateral CVS: S1,S2,RRR GI: +BS, NT, no distention Skin: No rash Neuro: motor grossly intact Psych: appropriate affect Objective Data Active Medications Acetaminophen (Acetaminophen 325 Mg Tablet) 650 mg PO Q6H PRN PRN Reason: Pain, Mild (Pain Scale 1-3), fever or headache Last Admin: 01/27/24 08:58 Dose: 650 mg Documented By: NANDO Albuterol Sulfate (Albuterol Sulfate 90 Mcg 8 Gm Inhaler) 2 puff INHALE RQ6H PRN PRN Reason: sob Last Admin: 01/16/24 13:46 Dose: 2 puff Documented By: DOMINIQUE Comments: Patient reporting SOB. Per respiratory, unavailable to administer at this time, ana miguel RN to administer. Amlodipine Besylate (Amlodipine Besylate 5 Mg Tablet) 5 mg PO DAILY [facility]; Protocol Last Admin: 01/28/24 08:10 Dose: 5 mg Documented By: CECILE Artificial Tears (Artificial Tears 15 Ml Drops) 2 drop EYE-BOTH Q4H PRN PRN Reason: Dry Eyes Last Admin: 12/21/23 03:08 Dose: 2 drop Documented By: YOMI Aspirin (Aspirin Enteric Coated 81 Mg Tablet.) 81 mg PO DAILY [facility] Last Admin: 01/28/24 08:10 Dose: 81 mg Documented By: CECILE Atorvastatin Calcium (Atorvastatin Calcium 20 Mg Tablet) 20 mg PO BEDTIME [facility] Last Admin: 01/27/24 19:56 Dose: 20 mg Documented By: YANELY Calcium Carbonate (Calcium Carbonate 750 Mg Tab.Chew) 750 mg PO Q4H PRN PRN Reason: Heartburn Enoxaparin Sodium (Enoxaparin Sodium 40 Mg/0.4 Ml Syringe) 40 mg SUBCUT Q24H [facility] Last Admin: 01/27/24 19:56 Dose: 40 mg Documented By: YANELY Fluoxetine HCl (Fluoxetine Hcl 20 Mg Capsule) 20 mg PO DAILY [facility] Last Admin: 01/28/24 08:10 Dose: 20 mg Documented By: CECILE Fluticasone/Umeclidinium/Vilanterol (Fluticasone/Umeclidinium/Vilanterol 100/62.5/25 Blst.W.Dev) 1 puff INHALE RDAILY [facility] Last Admin: 01/28/24 08:13 Dose: Not Given Documented By: DIANNA Non-Admin Reason: Pt not available Gabapentin (Gabapentin 100 Mg Capsule) 100 mg PO DAILY [facility] Last Admin: 01/28/24 08:10 Dose: 100 mg Documented By: CECILE Magnesium Hydroxide (Milk Of Magnesia 30 Ml Oral.Susp) 30 ml PO DAILY PRN PRN Reason: Constipation Last Admin: 12/08/23 08:25 Dose: 30 ml Documented By: AUDI Melatonin (Melatonin 3 Mg Tablet) 6 mg PO BEDTIME PRN PRN Reason: Insomnia Last Admin: 01/23/24 21:23 Dose: 6 mg Documented By: JAN Montelukast Sodium (Montelukast Sodium 10 Mg Tablet) 10 mg PO BEDTIME [facility] Last Admin: 01/27/24 19:56 Dose: 10 mg Documented By: YANELY Trazodone HCl (Trazodone Hcl 50 Mg Tablet) 50 mg PO BEDTIME [facility] Last Admin: 01/27/24 19:56 Dose: 50 mg Documented By: YANELY Vitamin D (Cholecalciferol (Vitamin D3) 25 Mcg Tablet) 25 mcg PO DAILY [facility] Last Admin: 01/28/24 08:10 Dose: 25 mcg Documented By: CECILE Labs 01/19/24 07:00 01/25/24 10:07 Assessment and Plan (1) Cognitive disorder: Status: Acute Plan 83M PMH copd, htn, hld, dementia unspecified, prostate ca, sent in from retirement after inappropriately interaction with another female resident. Unspecified dementia, stable, needs placement -Prozac per Psych eval for sexual inappropriateness. 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 Stop hctz d/t low sodium hypOnatremia--132 -probably to hctz, stopped, follow sodium hld - statin left knee pain -uric acid nl -xray:1. No acute fracture or dislocation is seen. 2. Persistent left tibiofemoral joint osteoarthritis, most severe in the medial compartment. Interval appearance of genu varus deformity. 3. Left suprapatellar fat pad shows bulging increase in density. -pain likely from above -tylenol and tramadol for pain -ortho recommends conservative managament, PT -tramadol and tylenol fo pain, topical med dvt prophylaxis - lovenox dnr/dni reason for continued hospitalization:dispo planning check routine labs 01/18, cbc ok, BMP mild hyponatremia 132, repeat lab today out of bed to chair, check routine labs Quality Stroke Does the patient have a stroke diagnosis?: No VTE Prior VTE?: No VTE Risk Level:: Medical - moderate - high VTE Device Contraindication: Treatment Not Indicated VTE Drug Contraindication: N/A - Med Ordered
[2024-01-28] MEDS: Acetaminophen 325 MG TABLET 650 MG PO (14:42)
[2024-01-28 15:56] VITALS: BP 130/66; PULSE 57; RESP 18; TEMP 37; O2SAT 96
[2024-01-28 20:00] VITALS: BP 134/65; PULSE 58; RESP 18; TEMP 36.7; O2SAT 94
[2024-01-28] MEDS: Atorvastatin Calcium 20 MG TABLET PO (20:10)
[2024-01-28] MEDS: Montelukast Sodium 10 MG TABLET PO (20:10)
[2024-01-28] MEDS: Enoxaparin Sodium 40 MG/0.4 ML SYRINGE SUBCUT (20:10)
[2024-01-28] MEDS: traZODone HCL 50 MG TABLET PO (20:10)
[2024-01-29 03:12] VITALS: BP 145/66; PULSE 56; RESP 16; TEMP 36.5; O2SAT 97
[2024-01-29 07:26] VITALS: BP 144/67; PULSE 58; RESP 18; TEMP 36.5; O2SAT 97
[2024-01-29] MEDS: Fluticasone/Umeclidinium/Vilanterol 100/62.5/25 BLST.W.DEV 1 PUFF INHALE (07:52)
[2024-01-29 07:53] VITALS: PULSE 58; RESP 18; O2SAT 93
[2024-01-29] MEDS: Aspirin Enteric Coated 81 MG TABLET.DR PO (09:19)
[2024-01-29] MEDS: Cholecalciferol (Vitamin D3) 25 MCG TABLET PO (09:19)
[2024-01-29] MEDS: FLUoxetine HCl 20 MG CAPSULE PO (09:19)
[2024-01-29] MEDS: amLODIPine Besylate 5 MG TABLET PO (09:19)
[2024-01-29] MEDS: Gabapentin 100 MG CAPSULE PO (09:19)
--- NOTE | 2024-01-29 11:00 | P.PNIM_ITS ---
Subjective Subjective Date of Service: 01/29/24 Interval History: no new c/o Review of Systems no new night events Physical Exam 2 Vital Signs: Vital Signs: Last Vital Signs Temp 97.7 F 01/29/24 07:26 Pulse 58 01/29/24 07:53 Resp 18 01/29/24 07:53 BP 144/67 H 01/29/24 07:26 Pulse Ox 97 01/29/24 07:26 O2 Del Method Room Air 01/29/24 07:26 O2 Flow Rate 3 12/22/23 20:00 BMI result Body Mass Index 28.0 General: Awake ,alert, no acute distress Resp: CTA bilateral CVS: S1,S2,RRR GI: +BS, NT, no distention Skin: No rash Neuro: motor grossly intact Psych: appropriate affect Objective Data Active Medications Acetaminophen (Acetaminophen 325 Mg Tablet) 650 mg PO Q6H PRN PRN Reason: Pain, Mild (Pain Scale 1-3), fever or headache Last Admin: 01/28/24 14:42 Dose: 650 mg Documented By: CECILE Albuterol Sulfate (Albuterol Sulfate 90 Mcg 8 Gm Inhaler) 2 puff INHALE RQ6H PRN PRN Reason: sob Last Admin: 01/16/24 13:46 Dose: 2 puff Documented By: DOMINIQUE Comments: Patient reporting SOB. Per respiratory, unavailable to administer at this time, ana miguel RN to administer. Amlodipine Besylate (Amlodipine Besylate 5 Mg Tablet) 5 mg PO DAILY [facility]; Protocol Last Admin: 01/29/24 09:19 Dose: 5 mg Documented By: JAKE Artificial Tears (Artificial Tears 15 Ml Drops) 2 drop EYE-BOTH Q4H PRN PRN Reason: Dry Eyes Last Admin: 12/21/23 03:08 Dose: 2 drop Documented By: YOMI Aspirin (Aspirin Enteric Coated 81 Mg Tablet.) 81 mg PO DAILY [facility] Last Admin: 01/29/24 09:19 Dose: 81 mg Documented By: JAKE Atorvastatin Calcium (Atorvastatin Calcium 20 Mg Tablet) 20 mg PO BEDTIME [facility] Last Admin: 01/28/24 20:10 Dose: 20 mg Documented By: YANELY Calcium Carbonate (Calcium Carbonate 750 Mg Tab.Chew) 750 mg PO Q4H PRN PRN Reason: Heartburn Enoxaparin Sodium (Enoxaparin Sodium 40 Mg/0.4 Ml Syringe) 40 mg SUBCUT Q24H [facility] Last Admin: 01/28/24 20:10 Dose: 40 mg Documented By: YANELY Fluoxetine HCl (Fluoxetine Hcl 20 Mg Capsule) 20 mg PO DAILY [facility] Last Admin: 01/29/24 09:19 Dose: 20 mg Documented By: JAKE Fluticasone/Umeclidinium/Vilanterol (Fluticasone/Umeclidinium/Vilanterol 100/62.5/25 Blst.W.Dev) 1 puff INHALE RDAILY [facility] Last Admin: 01/29/24 07:52 Dose: 1 puff Documented By: KAYLEIGH Gabapentin (Gabapentin 100 Mg Capsule) 100 mg PO DAILY [facility] Last Admin: 01/29/24 09:19 Dose: 100 mg Documented By: JAKE Magnesium Hydroxide (Milk Of Magnesia 30 Ml Oral.Susp) 30 ml PO DAILY PRN PRN Reason: Constipation Last Admin: 12/08/23 08:25 Dose: 30 ml Documented By: AUDI Melatonin (Melatonin 3 Mg Tablet) 6 mg PO BEDTIME PRN PRN Reason: Insomnia Last Admin: 01/23/24 21:23 Dose: 6 mg Documented By: JAN Montelukast Sodium (Montelukast Sodium 10 Mg Tablet) 10 mg PO BEDTIME [facility] Last Admin: 01/28/24 20:10 Dose: 10 mg Documented By: YANELY Trazodone HCl (Trazodone Hcl 50 Mg Tablet) 50 mg PO BEDTIME [facility] Last Admin: 01/28/24 20:10 Dose: 50 mg Documented By: YANELY Vitamin D (Cholecalciferol (Vitamin D3) 25 Mcg Tablet) 25 mcg PO DAILY [facility] Last Admin: 01/29/24 09:19 Dose: 25 mcg Documented By: JAKE Labs 01/19/24 07:00 01/25/24 10:07 Assessment and Plan (1) Cognitive disorder: Status: Acute Plan 83M PMH copd, htn, hld, dementia unspecified, prostate ca, sent in from halfway after inappropriately interaction with another female resident. Unspecified dementia, stable, needs placement -Prozac per Psych eval for sexual inappropriateness. -trazadone Dysphagia--APPEALS MANAGER rec NDD2, thin liquid speech recommends supervised eating neuropathic pain--neurontin copd, - albuterol prn htn - amldoipine. Stop hctz d/t low sodium hypOnatremia--132 -probably to hctz, stopped, follow sodium hld - statin left knee pain -uric acid nl -xray:1. No acute fracture or dislocation is seen. 2. Persistent left tibiofemoral joint osteoarthritis, most severe in the medial compartment. Interval appearance of genu varus deformity. 3. Left suprapatellar fat pad shows bulging increase in density. -pain likely from above -tylenol and tramadol for pain -ortho recommends conservative managament, PT -tramadol and tylenol fo pain, topical med dvt prophylaxis - lovenox dnr/dni reason for continued hospitalization:dispo planning out of bed to chair, check routine labs Quality Stroke Does the patient have a stroke diagnosis?: No VTE Prior VTE?: No VTE Risk Level:: Medical - moderate - high VTE Device Contraindication: Treatment Not Indicated VTE Drug Contraindication: N/A - Med Ordered
[2024-01-29] MEDS: Acetaminophen 325 MG TABLET 650 MG PO (12:13)
[2024-01-29 16:00] VITALS: BP 136/63; PULSE 58; RESP 14; TEMP 36.1; O2SAT 96
[2024-01-29 19:45] VITALS: BP 123/57; PULSE 64; RESP 14; TEMP 36.6; O2SAT 96
[2024-01-29] MEDS: Montelukast Sodium 10 MG TABLET PO (20:06)
[2024-01-29] MEDS: Enoxaparin Sodium 40 MG/0.4 ML SYRINGE SUBCUT (20:06)
[2024-01-29] MEDS: Atorvastatin Calcium 20 MG TABLET PO (20:06)
[2024-01-29] MEDS: traZODone HCL 50 MG TABLET PO (20:06)
[2024-01-30 04:00] VITALS: BP 133/61; PULSE 63; RESP 16; TEMP 36.1; O2SAT 95
[2024-01-30] MEDS: Acetaminophen 325 MG TABLET 650 MG PO ×3 (04:20→16:11)
[2024-01-30] MEDS: Fluticasone/Umeclidinium/Vilanterol 100/62.5/25 BLST.W.DEV 1 PUFF INHALE (07:43)
[2024-01-30 07:44] VITALS: PULSE 63; RESP 16; O2SAT 94
[2024-01-30 08:00] VITALS: BP 129/72; PULSE 85; RESP 18; TEMP 36.4; O2SAT 96
[2024-01-30] MEDS: Aspirin Enteric Coated 81 MG TABLET.DR PO (08:10)
[2024-01-30] MEDS: Gabapentin 100 MG CAPSULE PO (08:10)
[2024-01-30] MEDS: Cholecalciferol (Vitamin D3) 25 MCG TABLET PO (08:11)
[2024-01-30] MEDS: amLODIPine Besylate 5 MG TABLET PO (08:11)
[2024-01-30] MEDS: FLUoxetine HCl 20 MG CAPSULE PO (08:11)
--- NOTE | 2024-01-30 11:49 | MHC.CM.PN ---
Patient awaiting LTC placement with no bed offers at this time. CM followed up w/ facilities below: [facility]: Clinically accepted. Awaiting onsite eval 02/06 [facility]: Spoke w/ Guerline, reviewer, who reports he does not meed criteria w/ no acute needs for LTAC placement. Not following. [facility]: KALIN LM for Dipika in admissions. Faxed updates.
[2024-01-30] MEDS: Capsaicin 0.025% Cream 60 GM TUBE 1 APPL TOPICAL (13:04)
--- NOTE | 2024-01-30 13:14 | HO.PM.IMPN ---
Subjective Subjective Date of Service: 01/30/24 Interval History: no new c/o Review of Systems no new night events Physical Exam Vital Signs: Vital Signs: Last Vital Signs Temp 97.5 F 01/30/24 08:00 Pulse 85 01/30/24 08:00 Resp 18 01/30/24 08:00 BP 129/72 01/30/24 08:00 Pulse Ox 96 01/30/24 08:00 O2 Del Method Room Air 01/30/24 08:00 O2 Flow Rate 3 12/22/23 20:00 BMI result Body Mass Index 28.0 General: Awake ,alert, no acute distress Resp: CTA bilateral CVS: S1,S2,RRR GI: +BS, NT, no distention Skin: No rash Neuro: motor grossly intact Psych: appropriate affect Objective Data Active Medications Acetaminophen (Acetaminophen 325 Mg Tablet) 650 mg PO Q6H PRN PRN Reason: Pain, Mild (Pain Scale 1-3), fever or headache Last Admin: 01/30/24 10:14 Dose: 650 mg Documented By: BAKARI Albuterol Sulfate (Albuterol Sulfate 90 Mcg 8 Gm Inhaler) 2 puff INHALE RQ6H PRN PRN Reason: sob Last Admin: 01/16/24 13:46 Dose: 2 puff Documented By: DOMINIQUE Comments: Patient reporting SOB. Per respiratory, unavailable to administer at this time, ana miguel RN to administer. Amlodipine Besylate (Amlodipine Besylate 5 Mg Tablet) 5 mg PO DAILY [facility]; Protocol Last Admin: 01/30/24 08:11 Dose: 5 mg Documented By: BAKARI Artificial Tears (Artificial Tears 15 Ml Drops) 2 drop EYE-BOTH Q4H PRN PRN Reason: Dry Eyes Last Admin: 12/21/23 03:08 Dose: 2 drop Documented By: YOMI Aspirin (Aspirin Enteric Coated 81 Mg Tablet.) 81 mg PO DAILY [facility] Last Admin: 01/30/24 08:10 Dose: 81 mg Documented By: BAKARI Atorvastatin Calcium (Atorvastatin Calcium 20 Mg Tablet) 20 mg PO BEDTIME [facility] Last Admin: 01/29/24 20:06 Dose: 20 mg Documented By: MURISPierre Calcium Carbonate (Calcium Carbonate 750 Mg Tab.Chew) 750 mg PO Q4H PRN PRN Reason: Heartburn Capsaicin (Capsaicin 0.025% Cream 60 Gm Tube) 1 appl TOPICAL QID PRN; Protocol PRN Reason: Pain, Moderate(Pain Scale 4-6) Last Admin: 01/30/24 13:04 Dose: 1 appl Documented By: BAKARI Enoxaparin Sodium (Enoxaparin Sodium 40 Mg/0.4 Ml Syringe) 40 mg SUBCUT Q24H [facility] Last Admin: 01/29/24 20:06 Dose: 40 mg Documented By: STEPHANIE Fluoxetine HCl (Fluoxetine Hcl 20 Mg Capsule) 20 mg PO DAILY [facility] Last Admin: 01/30/24 08:11 Dose: 20 mg Documented By: BAKARI Fluticasone/Umeclidinium/Vilanterol (Fluticasone/Umeclidinium/Vilanterol 100/62.5/25 Blst.W.Dev) 1 puff INHALE RDAILY [facility] Last Admin: 01/30/24 07:43 Dose: 1 puff Documented By: KAYLEIGH Gabapentin (Gabapentin 100 Mg Capsule) 100 mg PO DAILY [facility] Last Admin: 01/30/24 08:10 Dose: 100 mg Documented By: BAKARI Magnesium Hydroxide (Milk Of Magnesia 30 Ml Oral.Susp) 30 ml PO DAILY PRN PRN Reason: Constipation Last Admin: 12/08/23 08:25 Dose: 30 ml Documented By: AUDI Melatonin (Melatonin 3 Mg Tablet) 6 mg PO BEDTIME PRN PRN Reason: Insomnia Last Admin: 01/23/24 21:23 Dose: 6 mg Documented By: JAN Montelukast Sodium (Montelukast Sodium 10 Mg Tablet) 10 mg PO BEDTIME [facility] Last Admin: 01/29/24 20:06 Dose: 10 mg Documented By: STEPHANIE Trazodone HCl (Trazodone Hcl 50 Mg Tablet) 50 mg PO BEDTIME [facility] Last Admin: 01/29/24 20:06 Dose: 50 mg Documented By: STEPHANIE Vitamin D (Cholecalciferol (Vitamin D3) 25 Mcg Tablet) 25 mcg PO DAILY [facility] Last Admin: 01/30/24 08:11 Dose: 25 mcg Documented By: BAKARI Labs 01/19/24 07:00 01/25/24 10:07 Assessment and Plan (1) Cognitive disorder: Status: Acute Plan 83M PMH copd, htn, hld, dementia unspecified, prostate ca, sent in from [facility] after inappropriately interaction with another female resident. Unspecified dementia, stable, needs placement -Prozac per Psych eval for sexual inappropriateness. 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 Stop hctz d/t low sodium hypOnatremia--132 -probably to hctz, stopped, follow sodium hld - statin left knee pain -uric acid nl -xray:1. No acute fracture or dislocation is seen. 2. Persistent left tibiofemoral joint osteoarthritis, most severe in the medial compartment. Interval appearance of genu varus deformity. 3. Left suprapatellar fat pad shows bulging increase in density. -pain likely from above -tylenol and tramadol for pain -ortho recommends conservative managament, PT -tramadol and tylenol fo pain, topical med dvt prophylaxis - lovenox dnr/dni reason for continued hospitalization:dispo planning out of bed to chair, check routine labs in am Quality Stroke Does the patient have a stroke diagnosis?: No VTE Prior VTE?: No VTE Risk Level:: Medical - moderate - high VTE Device Contraindication: Treatment Not Indicated VTE Drug Contraindication: N/A - Med Ordered
--- NOTE | 2024-01-30 13:55 | PC.NURSE ---
Pt transferred w miko to chair this am. Pt pleasant and cooperative w care and medications. Pt confused at baseline. Calls out for medicince for pain for arthritic knees. Giving prn tylenol, and obtained an order for capsaisin for arthitic joint pain.
[2024-01-30 16:12] VITALS: BP 146/72; PULSE 76; RESP 18; TEMP 36.4; O2SAT 94
[2024-01-30 19:31] VITALS: BP 127/60; PULSE 69; RESP 19; TEMP 36.6; O2SAT 98
[2024-01-30] MEDS: Atorvastatin Calcium 20 MG TABLET PO (19:55)
[2024-01-30] MEDS: traZODone HCL 50 MG TABLET PO (19:55)
[2024-01-30] MEDS: Montelukast Sodium 10 MG TABLET PO (19:55)
[2024-01-30] MEDS: Enoxaparin Sodium 40 MG/0.4 ML SYRINGE SUBCUT (19:56)
[2024-01-31 01:19] VITALS: BP 137/63; PULSE 76; RESP 19; TEMP 36.7; O2SAT 96
[2024-01-31] MEDS: Melatonin 3 MG TABLET 6 MG PO (01:19)
[2024-01-31] MEDS: Acetaminophen 325 MG TABLET 650 MG PO ×2 (01:19→08:15)
[2024-01-31] MEDS: Capsaicin 0.025% Cream 60 GM TUBE 1 APPL TOPICAL ×3 (01:19→20:46)
[2024-01-31 08:00] VITALS: BP 148/66; PULSE 83; RESP 16; TEMP 36.9; O2SAT 97
[2024-01-31] MEDS: Fluticasone/Umeclidinium/Vilanterol 100/62.5/25 BLST.W.DEV 1 PUFF INHALE (08:14)
[2024-01-31] MEDS: amLODIPine Besylate 5 MG TABLET PO (08:15)
[2024-01-31] MEDS: Aspirin Enteric Coated 81 MG TABLET.DR PO (08:15)
[2024-01-31] MEDS: FLUoxetine HCl 20 MG CAPSULE PO (08:15)
[2024-01-31] MEDS: Gabapentin 100 MG CAPSULE PO (08:15)
[2024-01-31] MEDS: Cholecalciferol (Vitamin D3) 25 MCG TABLET PO (08:15)
--- NOTE | 2024-01-31 12:48 | P.PNIM_ITS ---
Subjective Subjective Date of Service: 01/31/24 Interval History: no new issues, c/o knee pain, tramadol fell Physical Exam 2 Vital Signs: Vital Signs: Last Vital Signs Temp 98.5 F 01/31/24 08:00 Pulse 83 01/31/24 08:00 Resp 16 01/31/24 08:00 BP 148/66 H 01/31/24 08:00 Pulse Ox 97 01/31/24 08:00 O2 Del Method Room Air 01/31/24 08:00 O2 Flow Rate 3 12/22/23 20:00 BMI result Body Mass Index 28.0 General: Awake ,alert, no acute distress Resp: CTA bilateral CVS: S1,S2,RRR GI: +BS, NT, no distention Skin: No rash Neuro: motor grossly intact Psych: appropriate affect Objective Data Active Medications Acetaminophen (Acetaminophen 325 Mg Tablet) 650 mg PO Q6H PRN PRN Reason: Pain, Mild (Pain Scale 1-3), fever or headache Last Admin: 01/31/24 08:15 Dose: 650 mg Documented By: DARRYL Albuterol Sulfate (Albuterol Sulfate 90 Mcg 8 Gm Inhaler) 2 puff INHALE RQ6H PRN PRN Reason: sob Last Admin: 01/16/24 13:46 Dose: 2 puff Documented By: DOMINIQUE Comments: Patient reporting SOB. Per respiratory, unavailable to administer at this time, ana miguel RN to administer. Amlodipine Besylate (Amlodipine Besylate 5 Mg Tablet) 5 mg PO DAILY [facility]; Protocol Last Admin: 01/31/24 08:15 Dose: 5 mg Documented By: DARRYL Artificial Tears (Artificial Tears 15 Ml Drops) 2 drop EYE-BOTH Q4H PRN PRN Reason: Dry Eyes Last Admin: 12/21/23 03:08 Dose: 2 drop Documented By: YOMI Aspirin (Aspirin Enteric Coated 81 Mg Tablet.) 81 mg PO DAILY [facility] Last Admin: 01/31/24 08:15 Dose: 81 mg Documented By: DARRYL Atorvastatin Calcium (Atorvastatin Calcium 20 Mg Tablet) 20 mg PO BEDTIME [facility] Last Admin: 01/30/24 19:55 Dose: 20 mg Documented By: JAN Calcium Carbonate (Calcium Carbonate 750 Mg Tab.Chew) 750 mg PO Q4H PRN PRN Reason: Heartburn Capsaicin (Capsaicin 0.025% Cream 60 Gm Tube) 1 appl TOPICAL QID PRN; Protocol PRN Reason: Pain, Moderate(Pain Scale 4-6) Last Admin: 01/31/24 08:14 Dose: 1 appl Documented By: DARRYL Enoxaparin Sodium (Enoxaparin Sodium 40 Mg/0.4 Ml Syringe) 40 mg SUBCUT Q24H [facility] Last Admin: 01/30/24 19:56 Dose: 40 mg Documented By: JAN Fluoxetine HCl (Fluoxetine Hcl 20 Mg Capsule) 20 mg PO DAILY [facility] Last Admin: 01/31/24 08:15 Dose: 20 mg Documented By: DARRYL Fluticasone/Umeclidinium/Vilanterol (Fluticasone/Umeclidinium/Vilanterol 100/62.5/25 Blst.W.Dev) 1 puff INHALE RDAILY [facility] Last Admin: 01/31/24 08:14 Dose: 1 puff Documented By: DARRYL Gabapentin (Gabapentin 100 Mg Capsule) 100 mg PO DAILY [facility] Last Admin: 01/31/24 08:15 Dose: 100 mg Documented By: DARRYL Magnesium Hydroxide (Milk Of Magnesia 30 Ml Oral.Susp) 30 ml PO DAILY PRN PRN Reason: Constipation Last Admin: 12/08/23 08:25 Dose: 30 ml Documented By: AUDI Melatonin (Melatonin 3 Mg Tablet) 6 mg PO BEDTIME PRN PRN Reason: Insomnia Last Admin: 01/31/24 01:19 Dose: 6 mg Documented By: JAN Montelukast Sodium (Montelukast Sodium 10 Mg Tablet) 10 mg PO BEDTIME [facility] Last Admin: 01/30/24 19:55 Dose: 10 mg Documented By: JAN Tramadol HCl (Tramadol Hcl 50 Mg Tablet) 25 mg PO Q6H PRN PRN Reason: Pain, Severe (Pain Scale 7-10) Trazodone HCl (Trazodone Hcl 50 Mg Tablet) 50 mg PO BEDTIME [facility] Last Admin: 01/30/24 19:55 Dose: 50 mg Documented By: JAN Vitamin D (Cholecalciferol (Vitamin D3) 25 Mcg Tablet) 25 mcg PO DAILY [facility] Last Admin: 01/31/24 08:15 Dose: 25 mcg Documented By: DARRYL Labs 01/19/24 07:00 01/25/24 10:07 Assessment and Plan (1) Cognitive disorder: Status: Acute Plan 83M PMH copd, htn, hld, dementia unspecified, prostate ca, sent in from correction after inappropriately interaction with another female resident. Unspecified dementia, stable, needs placement -Prozac per Psych eval for sexual inappropriateness. 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 Stop hctz d/t low sodium hypOnatremia--133 -probably to hctz, stopped, follow sodium hld - statin left knee pain -uric acid nl -xray:1. No acute fracture or dislocation is seen. 2. Persistent left tibiofemoral joint osteoarthritis, most severe in the medial compartment. Interval appearance of genu varus deformity. 3. Left suprapatellar fat pad shows bulging increase in density. -pain likely from above -tylenol and tramadol for pain -ortho recommends conservative managament, PT -tramadol and tylenol fo pain, topical med dvt prophylaxis - lovenox dnr/dni reason for continued hospitalization:dispo planning out of bed to chair, check routine labs in am Quality Stroke Does the patient have a stroke diagnosis?: No VTE Prior VTE?: No VTE Risk Level:: Medical - moderate - high VTE Device Contraindication: Treatment Not Indicated VTE Drug Contraindication: N/A - Med Ordered
[2024-01-31 16:00] VITALS: BP 151/70; PULSE 73; RESP 16; TEMP 36.9; O2SAT 97
[2024-01-31 19:48] VITALS: BP 133/64; PULSE 83; RESP 18; TEMP 37; O2SAT 95
[2024-01-31] MEDS: Montelukast Sodium 10 MG TABLET PO (20:40)
[2024-01-31] MEDS: Atorvastatin Calcium 20 MG TABLET PO (20:40)
[2024-01-31] MEDS: traZODone HCL 50 MG TABLET PO (20:40)
[2024-01-31] MEDS: Enoxaparin Sodium 40 MG/0.4 ML SYRINGE SUBCUT (20:46)
[2024-02-01] MEDS: Acetaminophen 325 MG TABLET 650 MG PO ×2 (00:33→18:17)
[2024-02-01 03:37] VITALS: BP 117/61; PULSE 81; RESP 18; TEMP 36.5; O2SAT 94
[2024-02-01 06:34] LABS: Anion Gap 12 (12-20); Blood Urea Nitrogen 11 mg/dL (9-16); Calcium 9.1 mg/dL (8.4-10.2); Carbon Dioxide 25 mmol/L (22-29); Chloride 103 mmol/L (96-108); Creatinine Clr Calc Pharmacy 72.2; Estimated Glomerular Filt Rate > 60; Glucose Random 105 mg/dL (60-115); Potassium 4.3 mmol/L (3.3-5.1); Sodium 136 mmol/L (135-145)
[2024-02-01] MEDS: FLUoxetine HCl 20 MG CAPSULE PO (07:19)
[2024-02-01] MEDS: Aspirin Enteric Coated 81 MG TABLET.DR PO (07:19)
[2024-02-01] MEDS: amLODIPine Besylate 5 MG TABLET PO (07:19)
[2024-02-01] MEDS: Cholecalciferol (Vitamin D3) 25 MCG TABLET PO (07:19)
[2024-02-01] MEDS: Gabapentin 100 MG CAPSULE PO (07:19)
[2024-02-01] MEDS: Fluticasone/Umeclidinium/Vilanterol 100/62.5/25 BLST.W.DEV 1 PUFF INHALE (07:41)
[2024-02-01 07:42] VITALS: PULSE 81; RESP 18; O2SAT 95
[2024-02-01 07:58] VITALS: BP 143/66; PULSE 82; RESP 18; TEMP 37.2; O2SAT 95
--- NOTE | 2024-02-01 11:30 | P.PNIM_ITS ---
Subjective Subjective Date of Service: 02/01/24 Interval History: No new issues, vital stable. Physical Exam 2 Vital Signs: Vital Signs: Last Vital Signs Temp 98.9 F 02/01/24 07:58 Pulse 82 02/01/24 07:58 Resp 18 02/01/24 07:58 BP 143/66 H 02/01/24 07:58 Pulse Ox 95 02/01/24 07:58 O2 Del Method Room Air 02/01/24 03:37 O2 Flow Rate 3 12/22/23 20:00 BMI result Body Mass Index 28.0 General: Awake ,alert, no acute distress Resp: CTA bilateral CVS: S1,S2,RRR GI: +BS, NT, no distention Skin: No rash Neuro: motor grossly intact Psych: appropriate affect Objective Data Active Medications Acetaminophen (Acetaminophen 325 Mg Tablet) 650 mg PO Q6H PRN PRN Reason: Pain, Mild (Pain Scale 1-3), fever or headache Last Admin: 02/01/24 00:33 Dose: 650 mg Documented By: JAVIER Albuterol Sulfate (Albuterol Sulfate 90 Mcg 8 Gm Inhaler) 2 puff INHALE RQ6H PRN PRN Reason: sob Last Admin: 01/16/24 13:46 Dose: 2 puff Documented By: DOMINIQUE Comments: Patient reporting SOB. Per respiratory, unavailable to administer at this time, ana miguel RN to administer. Amlodipine Besylate (Amlodipine Besylate 5 Mg Tablet) 5 mg PO DAILY [facility]; Protocol Last Admin: 02/01/24 07:19 Dose: 5 mg Documented By: WAGNER Artificial Tears (Artificial Tears 15 Ml Drops) 2 drop EYE-BOTH Q4H PRN PRN Reason: Dry Eyes Last Admin: 12/21/23 03:08 Dose: 2 drop Documented By: YOMI Aspirin (Aspirin Enteric Coated 81 Mg Tablet.) 81 mg PO DAILY [facility] Last Admin: 02/01/24 07:19 Dose: 81 mg Documented By: WAGNER Atorvastatin Calcium (Atorvastatin Calcium 20 Mg Tablet) 20 mg PO BEDTIME [facility] Last Admin: 01/31/24 20:40 Dose: 20 mg Documented By: JAN Calcium Carbonate (Calcium Carbonate 750 Mg Tab.Chew) 750 mg PO Q4H PRN PRN Reason: Heartburn Capsaicin (Capsaicin 0.025% Cream 60 Gm Tube) 1 appl TOPICAL QID PRN; Protocol PRN Reason: Pain, Moderate(Pain Scale 4-6) Last Admin: 01/31/24 20:46 Dose: 1 appl Documented By: JAN Enoxaparin Sodium (Enoxaparin Sodium 40 Mg/0.4 Ml Syringe) 40 mg SUBCUT Q24H [facility] Last Admin: 01/31/24 20:46 Dose: 40 mg Documented By: JAN Fluoxetine HCl (Fluoxetine Hcl 20 Mg Capsule) 20 mg PO DAILY [facility] Last Admin: 02/01/24 07:19 Dose: 20 mg Documented By: WAGNER Fluticasone/Umeclidinium/Vilanterol (Fluticasone/Umeclidinium/Vilanterol 100/62.5/25 Blst.W.Dev) 1 puff INHALE RDAILY [facility] Last Admin: 02/01/24 07:41 Dose: 1 puff Documented By: KAYLEIGH Gabapentin (Gabapentin 100 Mg Capsule) 100 mg PO DAILY [facility] Last Admin: 02/01/24 07:19 Dose: 100 mg Documented By: WAGNER Magnesium Hydroxide (Milk Of Magnesia 30 Ml Oral.Susp) 30 ml PO DAILY PRN PRN Reason: Constipation Last Admin: 12/08/23 08:25 Dose: 30 ml Documented By: AUDI Melatonin (Melatonin 3 Mg Tablet) 6 mg PO BEDTIME PRN PRN Reason: Insomnia Last Admin: 01/31/24 01:19 Dose: 6 mg Documented By: JAN Montelukast Sodium (Montelukast Sodium 10 Mg Tablet) 10 mg PO BEDTIME [facility] Last Admin: 01/31/24 20:40 Dose: 10 mg Documented By: JAN Tramadol HCl (Tramadol Hcl 50 Mg Tablet) 25 mg PO Q6H PRN PRN Reason: Pain, Severe (Pain Scale 7-10) Trazodone HCl (Trazodone Hcl 50 Mg Tablet) 50 mg PO BEDTIME [facility] Last Admin: 01/31/24 20:40 Dose: 50 mg Documented By: JAN Vitamin D (Cholecalciferol (Vitamin D3) 25 Mcg Tablet) 25 mcg PO DAILY [facility] Last Admin: 02/01/24 07:19 Dose: 25 mcg Documented By: HO.VENLA Labs 01/19/24 07:00 02/01/24 05:47 Labs: Laboratory Results - last 24 hr 02/01/24 05:47 Hold Purple Top SEE NOTE Anion Gap 12 Estim Creat Clear Calc 72.2 Estimated GFR > 60 Random Glucose 105 Calcium 9.1 Assessment and Plan (1) Cognitive disorder: Status: Acute Plan 83M PMH copd, htn, hld, dementia unspecified, prostate ca, sent in from detention after inappropriately interaction with another female resident. Unspecified dementia, stable, needs placement -Prozac per Psych eval for sexual inappropriateness. 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 Stop hctz d/t low sodium hypOnatremia--back to normal at 136 -probably to hctz, stopped, follow sodium hld - statin left knee pain -uric acid nl -xray:1. No acute fracture or dislocation is seen. 2. Persistent left tibiofemoral joint osteoarthritis, most severe in the medial compartment. Interval appearance of genu varus deformity. 3. Left suprapatellar fat pad shows bulging increase in density. -pain likely from above -tylenol and tramadol for pain -ortho recommends conservative managament, PT -tramadol and tylenol fo pain, topical med dvt prophylaxis - lovenox dnr/dni reason for continued hospitalization:dispo planning out of bed to chair, Quality Stroke Does the patient have a stroke diagnosis?: No VTE Prior VTE?: No VTE Risk Level:: Medical - moderate - high VTE Device Contraindication: Treatment Not Indicated VTE Drug Contraindication: N/A - Med Ordered
[2024-02-01 11:38] LABS: MANUAL DIFF FLAG NO
[2024-02-01 11:54] LABS: Basophils Absolute Auto 0.1 X10*3/uL (0.0-0.2); Basophils Percent Auto 0.7 % (0-2); Eosinophils Absolute Auto 0.3 X10*3/uL (0.0-0.4); Eosinophils Percent Auto 2.1 % (0-4); Hematocrit 40.8 % (42.0-52.0); Hemoglobin 14.3 g/dl (14.0-18.0); Imm Gran Abs Auto 0.04 X10*3/uL (0.00-0.03); Imm Gran Pct Auto 0.3 % (0.0-0.4); Lymphocytes Absolute Auto 2.6 X10*3/uL (1.2-4.9); Lymphocytes Percent Auto 20.1 % (20-40); Mean Corpuscular Hemoglobin 30.4 pg (27.0-33.0); Mean Corpuscular Volume 86.8 fL (80.0-98.0); Mean Platelet Volume 10.4 fL (9.4-12.4); Monocytes Percent Auto 7.5 % (2-11); Neutrophils Percent Auto 69.3 % (45-73); Platelet Count 312 X10*3/uL (160-400); Red Cell Distribution Width 13.2 % (11.0-16.0)
--- NOTE | 2024-02-01 13:08 | MHC.CM.PN ---
EMR reviewed and per MD rounds, pt remains medically cleared for discharge however unable to due no current LTC bed offers. [facility]. Awaiting on site visit from [place] care liaison on 02/06.
[2024-02-01 15:42] VITALS: BP 137/64; PULSE 78; RESP 20; TEMP 37.1; O2SAT 96
[2024-02-01 20:00] VITALS: BP 136/71; PULSE 86; RESP 21; TEMP 36.9; O2SAT 95
[2024-02-01] MEDS: Montelukast Sodium 10 MG TABLET PO (21:35)
[2024-02-01] MEDS: Enoxaparin Sodium 40 MG/0.4 ML SYRINGE SUBCUT (21:35)
[2024-02-01] MEDS: Atorvastatin Calcium 20 MG TABLET PO (21:35)
[2024-02-01] MEDS: traZODone HCL 50 MG TABLET PO (21:35)
[2024-02-02 03:36] VITALS: BP 109/63; PULSE 72; RESP 14; TEMP 37; O2SAT 97
[2024-02-02 06:45] LABS: Hematocrit 37.6 % (42.0-52.0); Hemoglobin 13.1 g/dl (14.0-18.0); Mean Corpuscular HGB Conc 34.8 g/dl (31.0-36.0); Mean Corpuscular Hemoglobin 29.7 pg (27.0-33.0); Mean Corpuscular Volume 85.3 fL (80.0-98.0); Mean Platelet Volume 9.9 fL (9.4-12.4); Platelet Count 302 X10*3/uL (160-400); Red Blood Count 4.41 X10*6/uL (4.60-5.80); Red Cell Distribution Width 13.1 % (11.0-16.0); White Blood Count 10.8 X10*3/uL (4.8-10.8)
[2024-02-02 07:27] VITALS: BP 117/56; PULSE 66; RESP 18; TEMP 36.4; O2SAT 96
[2024-02-02] MEDS: Fluticasone/Umeclidinium/Vilanterol 100/62.5/25 BLST.W.DEV 1 PUFF INHALE (07:54)
[2024-02-02 07:55] VITALS: PULSE 82; RESP 18; O2SAT 95
[2024-02-02] MEDS: Gabapentin 100 MG CAPSULE PO (08:06)
[2024-02-02] MEDS: amLODIPine Besylate 5 MG TABLET PO (08:06)
[2024-02-02] MEDS: Cholecalciferol (Vitamin D3) 25 MCG TABLET PO (08:06)
[2024-02-02] MEDS: Aspirin Enteric Coated 81 MG TABLET.DR PO (08:06)
[2024-02-02] MEDS: FLUoxetine HCl 20 MG CAPSULE PO (08:06)
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
[2024-02-02] MEDS: traMADoL HCL 50 MG TABLET 25 MG PO ×2 (12:50→19:56)
[2024-02-02] MEDS: Capsaicin 0.025% Cream 60 GM TUBE 1 APPL TOPICAL ×2 (13:57→21:59)
[2024-02-02 15:21] VITALS: BP 139/63; PULSE 65; RESP 18; TEMP 36.8; O2SAT 98
[2024-02-02 19:25] VITALS: BP 147/66; PULSE 70; RESP 20; TEMP 36.8; O2SAT 98
[2024-02-02] MEDS: Montelukast Sodium 10 MG TABLET PO (19:56)
[2024-02-02] MEDS: traZODone HCL 50 MG TABLET PO (19:56)
[2024-02-02] MEDS: Atorvastatin Calcium 20 MG TABLET PO (19:56)
[2024-02-02] MEDS: Enoxaparin Sodium 40 MG/0.4 ML SYRINGE SUBCUT (19:57)
[2024-02-02] MEDS: Melatonin 3 MG TABLET 6 MG PO (21:59)
[2024-02-02] MEDS: Acetaminophen 325 MG TABLET 650 MG PO (23:03)
--- NOTE | 2024-02-03 02:03 | PC.NURSE ---
Pt started attempting to get out of bed few times c/o left knee pain, prn Tramadol given,short effcet noted, again c/o left knee pain, prn Capacin cream applied with no effect , restless and unredirectible, needs met, meds given, to no avail, Dr. Colmenares was notified, ordered IV Ativan, pt has no access and Md was asked if med be ordered po, no furtehr order after, prn Tylenol also given for c/o left knee pain, eventually pt went to sleep around midnight.
[2024-02-03 03:37] VITALS: BP 117/55; PULSE 71; RESP 18; TEMP 37; O2SAT 96
[2024-02-03 07:05] VITALS: BP 119/55; PULSE 72; RESP 16; TEMP 36.9; O2SAT 98
[2024-02-03] MEDS: Fluticasone/Umeclidinium/Vilanterol 100/62.5/25 BLST.W.DEV 1 PUFF INHALE (07:30)
[2024-02-03 07:31] VITALS: PULSE 72; RESP 16; O2SAT 96
[2024-02-03] MEDS: traMADoL HCL 50 MG TABLET 25 MG PO (08:24)
[2024-02-03] MEDS: Aspirin Enteric Coated 81 MG TABLET.DR PO (08:26)
[2024-02-03 08:27] VITALS: BP 119/58
[2024-02-03] MEDS: FLUoxetine HCl 20 MG CAPSULE PO (08:27)
[2024-02-03] MEDS: amLODIPine Besylate 5 MG TABLET PO (08:27)
[2024-02-03] MEDS: Gabapentin 100 MG CAPSULE PO (08:27)
[2024-02-03] MEDS: Cholecalciferol (Vitamin D3) 25 MCG TABLET PO (08:27)
[2024-02-03] MEDS: Capsaicin 0.025% Cream 60 GM TUBE 1 APPL TOPICAL (08:34)
--- NOTE | 2024-02-03 09:09 | MHC.CM.PN ---
Addendum entered by Nieves Mustafa RN 02/03/24 09:10: [facility] reports they cannot accept patient. Original Note: Awaiting LTC placement. 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 CM will continue to follow.
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
[2024-02-03] MEDS: Acetaminophen 325 MG TABLET 650 MG PO ×2 (12:35→20:40)
[2024-02-03 15:11] VITALS: BP 141/65; PULSE 70; RESP 16; TEMP 36.4; O2SAT 97
--- NOTE | 2024-02-03 17:24 | PC.NURSE ---
Pt continues to report left knee pain, mild edema in left knee noted, no redness or warmth. PRN pain medications given with mild to good effect throughout shift. MD Badillo made aware. Orders for CT entered and carried out, see report for details. Pt unable to use sit to stand device d/t not being able to bear weight on knee, anastasiia lift used to get pt to chair for dinner. Pt tolerated anastasiia lift well.
[2024-02-03 19:40] VITALS: BP 133/63; PULSE 70; RESP 13; TEMP 36.7; O2SAT 97
[2024-02-03] MEDS: Atorvastatin Calcium 20 MG TABLET PO (20:40)
[2024-02-03] MEDS: Montelukast Sodium 10 MG TABLET PO (20:40)
[2024-02-03] MEDS: Enoxaparin Sodium 40 MG/0.4 ML SYRINGE SUBCUT (20:40)
[2024-02-03] MEDS: traZODone HCL 50 MG TABLET PO (20:40)
[2024-02-04] MEDS: traMADoL HCL 50 MG TABLET 25 MG PO ×3 (01:57→19:58)
[2024-02-04 02:37] VITALS: BP 131/60; PULSE 71; RESP 16; TEMP 36.8; O2SAT 97
[2024-02-04] MEDS: Acetaminophen 325 MG TABLET 650 MG PO ×2 (06:01→16:27)
[2024-02-04] MEDS: Fluticasone/Umeclidinium/Vilanterol 100/62.5/25 BLST.W.DEV 1 PUFF INHALE (07:49)
[2024-02-04 07:50] VITALS: PULSE 71; RESP 18; O2SAT 97
[2024-02-04 07:58] VITALS: BP 132/62; PULSE 62; RESP 18; TEMP 36.8; O2SAT 97
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
[2024-02-04 11:09] VITALS: BP 118/56
[2024-02-04] MEDS: Cholecalciferol (Vitamin D3) 25 MCG TABLET PO (11:09)
[2024-02-04] MEDS: Aspirin Enteric Coated 81 MG TABLET.DR PO (11:09)
[2024-02-04] MEDS: Gabapentin 100 MG CAPSULE PO (11:09)
[2024-02-04] MEDS: FLUoxetine HCl 20 MG CAPSULE PO (11:09)
[2024-02-04] MEDS: amLODIPine Besylate 5 MG TABLET PO (11:09)
[2024-02-04 16:42] VITALS: BP 140/64; PULSE 72; RESP 16; TEMP 36.9; O2SAT 97
[2024-02-04 19:43] VITALS: BP 130/63; PULSE 72; RESP 16; TEMP 36.2; O2SAT 97
[2024-02-04] MEDS: traZODone HCL 50 MG TABLET PO (19:56)
[2024-02-04] MEDS: Atorvastatin Calcium 20 MG TABLET PO (19:56)
[2024-02-04] MEDS: Melatonin 3 MG TABLET 6 MG PO (19:56)
[2024-02-04] MEDS: Montelukast Sodium 10 MG TABLET PO (19:57)
[2024-02-04] MEDS: Enoxaparin Sodium 40 MG/0.4 ML SYRINGE SUBCUT (20:05)
[2024-02-05] MEDS: Acetaminophen 325 MG TABLET 650 MG PO ×3 (02:57→19:37)
[2024-02-05] MEDS: traMADoL HCL 50 MG TABLET 25 MG PO (02:57)
[2024-02-05 04:00] VITALS: BP 138/61; PULSE 65; RESP 17; TEMP 36.3; O2SAT 94
[2024-02-05 08:00] VITALS: BP 118/54; PULSE 66; RESP 17; TEMP 36.6; O2SAT 97
[2024-02-05] MEDS: Gabapentin 100 MG CAPSULE PO (10:07)
[2024-02-05] MEDS: amLODIPine Besylate 5 MG TABLET PO (10:07)
[2024-02-05] MEDS: Aspirin Enteric Coated 81 MG TABLET.DR PO (10:07)
[2024-02-05] MEDS: Cholecalciferol (Vitamin D3) 25 MCG TABLET PO (10:07)
[2024-02-05] MEDS: FLUoxetine HCl 20 MG CAPSULE PO (10:07)
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
[2024-02-05 15:11] VITALS: BP 111/59; PULSE 53; RESP 17; TEMP 36.6; O2SAT 97
[2024-02-05 19:21] VITALS: BP 136/85; PULSE 71; RESP 14; TEMP 36.4; O2SAT 96
[2024-02-05] MEDS: traZODone HCL 50 MG TABLET PO (19:37)
[2024-02-05] MEDS: Montelukast Sodium 10 MG TABLET PO (19:37)
[2024-02-05] MEDS: Enoxaparin Sodium 40 MG/0.4 ML SYRINGE SUBCUT (19:37)
[2024-02-05] MEDS: Atorvastatin Calcium 20 MG TABLET PO (19:37)
[2024-02-06 03:27] VITALS: BP 127/56; PULSE 82; RESP 18; TEMP 36.7; O2SAT 96
[2024-02-06 07:36] VITALS: BP 123/57; PULSE 75; RESP 18; TEMP 36.9; O2SAT 98
[2024-02-06] MEDS: Fluticasone/Umeclidinium/Vilanterol 100/62.5/25 BLST.W.DEV 1 PUFF INHALE (07:48)
[2024-02-06 07:49] VITALS: PULSE 74; RESP 18; O2SAT 97
[2024-02-06] MEDS: Cholecalciferol (Vitamin D3) 25 MCG TABLET PO (08:25)
[2024-02-06] MEDS: amLODIPine Besylate 5 MG TABLET PO (08:25)
[2024-02-06] MEDS: Gabapentin 100 MG CAPSULE PO (08:26)
[2024-02-06] MEDS: FLUoxetine HCl 20 MG CAPSULE PO (08:26)
[2024-02-06] MEDS: Aspirin Enteric Coated 81 MG TABLET.DR PO (08:26)
[2024-02-06] MEDS: Acetaminophen 325 MG TABLET 650 MG PO ×2 (08:26→19:31)
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
[2024-02-06 15:26] VITALS: BP 137/60; PULSE 57; RESP 20; TEMP 36.6; O2SAT 97
[2024-02-06 19:05] VITALS: BP 140/62; PULSE 77; RESP 17; TEMP 36.8; O2SAT 97
[2024-02-06] MEDS: Atorvastatin Calcium 20 MG TABLET PO (19:29)
[2024-02-06] MEDS: Montelukast Sodium 10 MG TABLET PO (19:29)
[2024-02-06] MEDS: traZODone HCL 50 MG TABLET PO (19:29)
[2024-02-06] MEDS: Enoxaparin Sodium 40 MG/0.4 ML SYRINGE SUBCUT (19:29)
[2024-02-06] MEDS: Melatonin 3 MG TABLET 6 MG PO (19:31)
[2024-02-07 02:44] VITALS: BP 149/70; PULSE 70; RESP 17; TEMP 36.6; O2SAT 96
[2024-02-07] MEDS: Fluticasone/Umeclidinium/Vilanterol 100/62.5/25 BLST.W.DEV 1 PUFF INHALE (07:57)
[2024-02-07 07:58] VITALS: PULSE 70; RESP 16; O2SAT 96
[2024-02-07 08:19] VITALS: BP 128/63; PULSE 77; RESP 18; TEMP 36.6; O2SAT 96
[2024-02-07 08:49] VITALS: BP 128/63
[2024-02-07] MEDS: amLODIPine Besylate 5 MG TABLET PO (08:49)
[2024-02-07] MEDS: FLUoxetine HCl 20 MG CAPSULE PO (08:49)
[2024-02-07] MEDS: Cholecalciferol (Vitamin D3) 25 MCG TABLET PO (08:49)
[2024-02-07] MEDS: Gabapentin 100 MG CAPSULE PO (08:49)
[2024-02-07] MEDS: Aspirin Enteric Coated 81 MG TABLET.DR PO (08:49)
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
[2024-02-07] MEDS: Acetaminophen 325 MG TABLET 650 MG PO ×2 (10:20→21:09)
--- NOTE | 2024-02-07 13:56 | MHC.CM.PN ---
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 AGAIN, RECOMMENDING A BED OFFER AND REPORTS SHE WILL PASS THIS ON TO [facility]. NO BEDS AT THIS TIME. CM WILL CONTINUE TO FOLLOW.
[2024-02-07 15:41] VITALS: BP 146/69; PULSE 70; RESP 18; TEMP 36.7; O2SAT 96
[2024-02-07 19:34] VITALS: BP 155/67; PULSE 72; RESP 18; TEMP 36.8; O2SAT 96
[2024-02-07] MEDS: Enoxaparin Sodium 40 MG/0.4 ML SYRINGE SUBCUT (21:08)
[2024-02-07] MEDS: Montelukast Sodium 10 MG TABLET PO (21:09)
[2024-02-07] MEDS: Atorvastatin Calcium 20 MG TABLET PO (21:09)
[2024-02-07] MEDS: Melatonin 3 MG TABLET 6 MG PO (21:09)
[2024-02-07] MEDS: traZODone HCL 50 MG TABLET PO (21:09)
[2024-02-08] MEDS: Acetaminophen 325 MG TABLET 650 MG PO ×2 (03:06→15:33)
[2024-02-08 04:00] VITALS: BP 119/58; PULSE 73; RESP 18; TEMP 36.9; O2SAT 95
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
[2024-02-08 07:47] VITALS: BP 139/63; PULSE 72; RESP 18; TEMP 36.5; O2SAT 98
[2024-02-08] MEDS: Fluticasone/Umeclidinium/Vilanterol 100/62.5/25 BLST.W.DEV 1 PUFF INHALE (07:55)
[2024-02-08 07:56] VITALS: PULSE 72; RESP 18; O2SAT 97
[2024-02-08] MEDS: traMADoL HCL 50 MG TABLET 25 MG PO ×2 (08:28→15:34)
[2024-02-08] MEDS: Aspirin Enteric Coated 81 MG TABLET.DR PO (08:29)
[2024-02-08] MEDS: Gabapentin 100 MG CAPSULE PO (08:29)
[2024-02-08] MEDS: amLODIPine Besylate 5 MG TABLET PO (08:30)
[2024-02-08] MEDS: FLUoxetine HCl 20 MG CAPSULE PO (08:30)
[2024-02-08] MEDS: Cholecalciferol (Vitamin D3) 25 MCG TABLET PO (08:55)
--- NOTE | 2024-02-08 11:39 | MHC.CM.PN ---
Continues to await LTC placement. [facility] expects to have more information about bed availability tomorrow. CM will continue to follow.
[2024-02-08 15:08] VITALS: BP 133/67; PULSE 66; RESP 18; TEMP 36.2; O2SAT 96
[2024-02-08 19:07] VITALS: BP 135/82; PULSE 82; RESP 18; TEMP 36.4; O2SAT 96
[2024-02-08] MEDS: Montelukast Sodium 10 MG TABLET PO (20:42)
[2024-02-08] MEDS: traZODone HCL 50 MG TABLET PO (20:43)
[2024-02-08] MEDS: Atorvastatin Calcium 20 MG TABLET PO (20:43)
[2024-02-08] MEDS: Enoxaparin Sodium 40 MG/0.4 ML SYRINGE SUBCUT (20:43)
[2024-02-09 03:39] VITALS: BP 114/60; PULSE 69; RESP 18; TEMP 36.7; O2SAT 97
[2024-02-09] MEDS: traMADoL HCL 50 MG TABLET 25 MG PO ×3 (05:04→21:10)
[2024-02-09] MEDS: Acetaminophen 325 MG TABLET 650 MG PO ×2 (05:04→14:40)
[2024-02-09 07:21] VITALS: BP 129/60; PULSE 65; RESP 18; TEMP 36.4; O2SAT 97
[2024-02-09] MEDS: Fluticasone/Umeclidinium/Vilanterol 100/62.5/25 BLST.W.DEV 1 PUFF INHALE (08:03)
[2024-02-09 08:04] VITALS: PULSE 65; RESP 18; O2SAT 97
[2024-02-09] MEDS: Gabapentin 100 MG CAPSULE PO (09:43)
[2024-02-09] MEDS: FLUoxetine HCl 20 MG CAPSULE PO (09:43)
[2024-02-09] MEDS: amLODIPine Besylate 5 MG TABLET PO (09:43)
[2024-02-09] MEDS: Cholecalciferol (Vitamin D3) 25 MCG TABLET PO (09:43)
[2024-02-09] MEDS: Aspirin Enteric Coated 81 MG TABLET.DR PO (09:43)
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
[2024-02-09 16:00] VITALS: BP 133/61; PULSE 75; RESP 18; TEMP 36.1; O2SAT 95
[2024-02-09 19:26] VITALS: BP 135/60; PULSE 74; RESP 18; TEMP 36.6; O2SAT 94
[2024-02-09] MEDS: Atorvastatin Calcium 20 MG TABLET PO (21:09)
[2024-02-09] MEDS: traZODone HCL 50 MG TABLET PO (21:09)
[2024-02-09] MEDS: Montelukast Sodium 10 MG TABLET PO (21:09)
[2024-02-09] MEDS: Enoxaparin Sodium 40 MG/0.4 ML SYRINGE SUBCUT (21:11)
[2024-02-10 07:40] VITALS: BP 136/81; PULSE 81; RESP 18; TEMP 36.7; O2SAT 98
[2024-02-10] MEDS: Aspirin Enteric Coated 81 MG TABLET.DR PO (08:26)
[2024-02-10] MEDS: Gabapentin 100 MG CAPSULE PO (08:26)
[2024-02-10] MEDS: FLUoxetine HCl 20 MG CAPSULE PO (08:26)
[2024-02-10] MEDS: amLODIPine Besylate 5 MG TABLET PO (08:26)
[2024-02-10] MEDS: traMADoL HCL 50 MG TABLET 25 MG PO ×2 (08:26→20:12)
[2024-02-10] MEDS: Cholecalciferol (Vitamin D3) 25 MCG TABLET PO (08:26)
[2024-02-10] MEDS: Fluticasone/Umeclidinium/Vilanterol 100/62.5/25 BLST.W.DEV 1 PUFF INHALE (08:32)
[2024-02-10 08:33] VITALS: PULSE 80; RESP 18; O2SAT 95
--- NOTE | 2024-02-10 10:18 | MHC.CM.PN ---
Patient continues to await LTC bed. [facility] has clinically accepted, but does not have bed availability at this time. Expects to have an answer EOD 02/12. CM will continue to follow.
--- NOTE | 2024-02-10 14:47 | P.PNIM_ITS ---
Subjective Subjective Date of Service: 02/10/24 Interval History: No acute issues overnight Review of Systems Denies chest pain Denies shortness of breath Denies nausea vomiting diarrhea no fever chills Physical Exam 2 Vital Signs: Vital Signs: Last Vital Signs Temp 98.0 F 02/10/24 07:40 Pulse 80 02/10/24 08:33 Resp 18 02/10/24 08:33 BP 136/81 02/10/24 07:40 Pulse Ox 98 02/10/24 07:40 O2 Del Method Room Air 02/10/24 07:40 O2 Flow Rate 3 12/22/23 20:00 BMI result Body Mass Index 28.0 Const: Other: Awake alert no acute distress Resp: Other: Clear to auscultation bilaterally no rales rhonchi or wheezes Cardio: Other: No S4; positive S1-S2; no S3 murmurs rubs or gallops GI: Other: Soft nontender nondistended normoactive bowel sounds Extrem: Other: No edema bilaterally Objective Data Active Medications Acetaminophen (Acetaminophen 325 Mg Tablet) 650 mg PO Q6H PRN PRN Reason: Pain, Mild (Pain Scale 1-3), fever or headache Last Admin: 02/09/24 14:40 Dose: 650 mg Documented By: RAGHAVENDRA Albuterol Sulfate (Albuterol Sulfate 90 Mcg 8 Gm Inhaler) 2 puff INHALE RQ6H PRN PRN Reason: sob Last Admin: 01/16/24 13:46 Dose: 2 puff Documented By: DOMINIQUE Comments: Patient reporting SOB. Per respiratory, unavailable to administer at this time, ana miguel RN to administer. Amlodipine Besylate (Amlodipine Besylate 5 Mg Tablet) 5 mg PO DAILY [facility]; Protocol Last Admin: 02/10/24 08:26 Dose: 5 mg Documented By: YEN Artificial Tears (Artificial Tears 15 Ml Drops) 2 drop EYE-BOTH Q4H PRN PRN Reason: Dry Eyes Last Admin: 12/21/23 03:08 Dose: 2 drop Documented By: YOMI Aspirin (Aspirin Enteric Coated 81 Mg Tablet.) 81 mg PO DAILY [facility] Last Admin: 02/10/24 08:26 Dose: 81 mg Documented By: YEN Atorvastatin Calcium (Atorvastatin Calcium 20 Mg Tablet) 20 mg PO BEDTIME [facility] Last Admin: 02/09/24 21:09 Dose: 20 mg Documented By: TRISTAN Calcium Carbonate (Calcium Carbonate 750 Mg Tab.Chew) 750 mg PO Q4H PRN PRN Reason: Heartburn Capsaicin (Capsaicin 0.025% Cream 60 Gm Tube) 1 appl TOPICAL QID PRN; Protocol PRN Reason: Pain, Moderate(Pain Scale 4-6) Last Admin: 02/03/24 08:34 Dose: 1 appl Documented By: COOKIE Enoxaparin Sodium (Enoxaparin Sodium 40 Mg/0.4 Ml Syringe) 40 mg SUBCUT Q24H [facility] Last Admin: 02/09/24 21:11 Dose: 40 mg Documented By: TRISTAN Fluoxetine HCl (Fluoxetine Hcl 20 Mg Capsule) 20 mg PO DAILY [facility] Last Admin: 02/10/24 08:26 Dose: 20 mg Documented By: YEN Fluticasone/Umeclidinium/Vilanterol (Fluticasone/Umeclidinium/Vilanterol 100/62.5/25 Blst.W.Dev) 1 puff INHALE RDAILY [facility] Last Admin: 02/10/24 08:32 Dose: 1 puff Documented By: KRISHNA Gabapentin (Gabapentin 100 Mg Capsule) 100 mg PO DAILY [facility] Last Admin: 02/10/24 08:26 Dose: 100 mg Documented By: YEN Magnesium Hydroxide (Milk Of Magnesia 30 Ml Oral.Susp) 30 ml PO DAILY PRN PRN Reason: Constipation Last Admin: 12/08/23 08:25 Dose: 30 ml Documented By: AUDI Melatonin (Melatonin 3 Mg Tablet) 6 mg PO BEDTIME PRN PRN Reason: Insomnia Last Admin: 02/07/24 21:09 Dose: 6 mg Documented By: VIRGINIA Montelukast Sodium (Montelukast Sodium 10 Mg Tablet) 10 mg PO BEDTIME [facility] Last Admin: 02/09/24 21:09 Dose: 10 mg Documented By: TRISTAN Tramadol HCl (Tramadol Hcl 50 Mg Tablet) 25 mg PO Q4H PRN PRN Reason: Pain, Severe (Pain Scale 7-10) Last Admin: 02/10/24 08:26 Dose: 25 mg Documented By: YEN Trazodone HCl (Trazodone Hcl 50 Mg Tablet) 50 mg PO BEDTIME [facility] Last Admin: 02/09/24 21:09 Dose: 50 mg Documented By: TRISTAN Vitamin D (Cholecalciferol (Vitamin D3) 25 Mcg Tablet) 25 mcg PO DAILY [facility] Last Admin: 02/10/24 08:26 Dose: 25 mcg Documented By: BELEMAC Labs 02/02/24 05:45 02/01/24 05:47 Assessment and Plan (1) Major neurocognitive disorder: Status: Acute Plan 83M PMH copd, htn, hld, dementia unspecified, prostate ca, sent in from longterm after inappropriately interaction with another female resident. Unspecified dementia, stable, needs placement -Prozac per Psych -trazadon -there has been no report of sexual inappropriateness while here Dysphasia--HISTOLOGY TECHNICIAN rec NDD2, thin liquid speech recommends supervised eating neuropathic pain--neurontin copd, stable no exacerbation - albuterol prn htn - amldoipine. Stop hctz d/t low sodium hypOnatremia--back to normal at 136 -probably to hctz, stopped, follow sodium leukocytosis--resolved hld - statin l dvt prophylaxis - lovenox dnr/dni reason for continued hospitalization:dispo planning out of bed to chair, Quality Stroke Does the patient have a stroke diagnosis?: No VTE Prior VTE?: No VTE Risk Level:: Medical - moderate - high VTE Device Contraindication: Treatment Not Indicated VTE Drug Contraindication: N/A - Med Ordered
[2024-02-10 15:03] VITALS: BP 138/65; PULSE 66; RESP 18; TEMP 36.2; O2SAT 97
[2024-02-10 19:07] VITALS: BP 134/62; PULSE 75; RESP 18; TEMP 36.7; O2SAT 96
[2024-02-10] MEDS: traZODone HCL 50 MG TABLET PO (20:11)
[2024-02-10] MEDS: Atorvastatin Calcium 20 MG TABLET PO (20:11)
[2024-02-10] MEDS: Montelukast Sodium 10 MG TABLET PO (20:11)
[2024-02-10] MEDS: Enoxaparin Sodium 40 MG/0.4 ML SYRINGE SUBCUT (20:11)
[2024-02-11] MEDS: traMADoL HCL 50 MG TABLET 25 MG PO ×2 (02:13→18:04)
[2024-02-11 07:35] VITALS: BP 120/58; PULSE 64; RESP 18; TEMP 36.2; O2SAT 97
[2024-02-11] MEDS: Aspirin Enteric Coated 81 MG TABLET.DR PO (09:25)
[2024-02-11] MEDS: FLUoxetine HCl 20 MG CAPSULE PO (09:25)
[2024-02-11] MEDS: amLODIPine Besylate 5 MG TABLET PO (09:25)
[2024-02-11] MEDS: Cholecalciferol (Vitamin D3) 25 MCG TABLET PO (09:25)
[2024-02-11] MEDS: Gabapentin 100 MG CAPSULE PO (09:25)
[2024-02-11] MEDS: Acetaminophen 325 MG TABLET 650 MG PO ×2 (09:25→19:47)
--- NOTE | 2024-02-11 14:13 | P.PNIM_ITS ---
Subjective Subjective Date of Service: 02/11/24 Interval History: No acute issues overnight Review of Systems Denies chest pain Denies shortness of breath Denies nausea vomiting diarrhea no fever chills Physical Exam 2 Vital Signs: Vital Signs: Last Vital Signs Temp 97.2 F 02/11/24 07:35 Pulse 64 02/11/24 07:35 Resp 18 02/11/24 07:35 BP 120/58 L 02/11/24 07:35 Pulse Ox 97 02/11/24 07:35 O2 Del Method Room Air 02/11/24 07:35 O2 Flow Rate 3 12/22/23 20:00 BMI result Body Mass Index 28.0 Const: Other: Awake alert no acute distress Resp: Other: Clear to auscultation bilaterally no rales rhonchi or wheezes Cardio: Other: No S4; positive S1-S2; no S3 murmurs rubs or gallops GI: Other: Soft nontender nondistended normoactive bowel sounds Extrem: Other: No edema bilaterally Objective Data Active Medications Acetaminophen (Acetaminophen 325 Mg Tablet) 650 mg PO Q6H PRN PRN Reason: Pain, Mild (Pain Scale 1-3), fever or headache Last Admin: 02/11/24 09:25 Dose: 650 mg Documented By: HATTIE Albuterol Sulfate (Albuterol Sulfate 90 Mcg 8 Gm Inhaler) 2 puff INHALE RQ6H PRN PRN Reason: sob Last Admin: 01/16/24 13:46 Dose: 2 puff Documented By: DOMINIQUE Comments: Patient reporting SOB. Per respiratory, unavailable to administer at this time, ana miguel RN to administer. Amlodipine Besylate (Amlodipine Besylate 5 Mg Tablet) 5 mg PO DAILY [facility]; Protocol Last Admin: 02/11/24 09:25 Dose: 5 mg Documented By: HATTIE Artificial Tears (Artificial Tears 15 Ml Drops) 2 drop EYE-BOTH Q4H PRN PRN Reason: Dry Eyes Last Admin: 12/21/23 03:08 Dose: 2 drop Documented By: YOMI Aspirin (Aspirin Enteric Coated 81 Mg Tablet.) 81 mg PO DAILY [facility] Last Admin: 02/11/24 09:25 Dose: 81 mg Documented By: HATTIE Atorvastatin Calcium (Atorvastatin Calcium 20 Mg Tablet) 20 mg PO BEDTIME [facility] Last Admin: 02/10/24 20:11 Dose: 20 mg Documented By: TRISTAN Calcium Carbonate (Calcium Carbonate 750 Mg Tab.Chew) 750 mg PO Q4H PRN PRN Reason: Heartburn Capsaicin (Capsaicin 0.025% Cream 60 Gm Tube) 1 appl TOPICAL QID PRN; Protocol PRN Reason: Pain, Moderate(Pain Scale 4-6) Last Admin: 02/03/24 08:34 Dose: 1 appl Documented By: COOKIE Enoxaparin Sodium (Enoxaparin Sodium 40 Mg/0.4 Ml Syringe) 40 mg SUBCUT Q24H [facility] Last Admin: 02/10/24 20:11 Dose: 40 mg Documented By: TRISTAN Fluoxetine HCl (Fluoxetine Hcl 20 Mg Capsule) 20 mg PO DAILY [facility] Last Admin: 02/11/24 09:25 Dose: 20 mg Documented By: HATTIE Fluticasone/Umeclidinium/Vilanterol (Fluticasone/Umeclidinium/Vilanterol 100/62.5/25 Blst.W.Dev) 1 puff INHALE RDAILY [facility] Last Admin: 02/11/24 07:33 Dose: Not Given Documented By: KAYLEIGH Non-Admin Reason: pt unable to tolerate at this time Gabapentin (Gabapentin 100 Mg Capsule) 100 mg PO DAILY [facility] Last Admin: 02/11/24 09:25 Dose: 100 mg Documented By: HATTIE Magnesium Hydroxide (Milk Of Magnesia 30 Ml Oral.Susp) 30 ml PO DAILY PRN PRN Reason: Constipation Last Admin: 12/08/23 08:25 Dose: 30 ml Documented By: AUDI Melatonin (Melatonin 3 Mg Tablet) 6 mg PO BEDTIME PRN PRN Reason: Insomnia Last Admin: 02/07/24 21:09 Dose: 6 mg Documented By: VIRGINIA Montelukast Sodium (Montelukast Sodium 10 Mg Tablet) 10 mg PO BEDTIME [facility] Last Admin: 02/10/24 20:11 Dose: 10 mg Documented By: TRISTAN Tramadol HCl (Tramadol Hcl 50 Mg Tablet) 25 mg PO Q4H PRN PRN Reason: Pain, Severe (Pain Scale 7-10) Last Admin: 02/11/24 02:13 Dose: 25 mg Documented By: TRISTAN Trazodone HCl (Trazodone Hcl 50 Mg Tablet) 50 mg PO BEDTIME [facility] Last Admin: 02/10/24 20:11 Dose: 50 mg Documented By: TRISTAN Vitamin D (Cholecalciferol (Vitamin D3) 25 Mcg Tablet) 25 mcg PO DAILY [facility] Last Admin: 02/11/24 09:25 Dose: 25 mcg Documented By: HATTIE Labs 02/02/24 05:45 02/01/24 05:47 Assessment and Plan (1) Major neurocognitive disorder: Status: Acute Plan 83M PMH copd, htn, hld, dementia unspecified, prostate ca, sent in from long term after inappropriately interaction with another female resident. Unspecified dementia, stable, needs placement -Prozac per Psych -trazadon -there has been no report of sexual inappropriateness while here Dysphasia--MEDICAL OFFICE REPRESENTATIVE rec NDD2, thin liquid speech recommends supervised eating neuropathic pain--neurontin copd, stable no exacerbation - albuterol prn htn - amldoipine. Stop hctz d/t low sodium hypOnatremia--back to normal at 136 -probably to hctz, stopped, follow sodium leukocytosis--resolved hld - statin l dvt prophylaxis - lovenox dnr/dni reason for continued hospitalization:dispo planning out of bed to chair, Quality Stroke Does the patient have a stroke diagnosis?: No VTE Prior VTE?: No VTE Risk Level:: Medical - moderate - high VTE Device Contraindication: Treatment Not Indicated VTE Drug Contraindication: N/A - Med Ordered
[2024-02-11 15:52] VITALS: BP 113/68; PULSE 84; RESP 18; TEMP 37.1; O2SAT 94
[2024-02-11 19:24] VITALS: BP 121/65; PULSE 73; RESP 18; TEMP 36.9; O2SAT 97
[2024-02-11] MEDS: Enoxaparin Sodium 40 MG/0.4 ML SYRINGE SUBCUT (19:46)
[2024-02-11] MEDS: Atorvastatin Calcium 20 MG TABLET PO (19:47)
[2024-02-11] MEDS: traZODone HCL 50 MG TABLET PO (19:47)
[2024-02-11] MEDS: Melatonin 3 MG TABLET 6 MG PO (19:47)
[2024-02-11] MEDS: Montelukast Sodium 10 MG TABLET PO (19:47)
[2024-02-12 07:29] VITALS: BP 112/63; PULSE 71; RESP 16; O2SAT 96
[2024-02-12 07:36] VITALS: BP 156/72; PULSE 56; RESP 16; TEMP 36.3; O2SAT 96
[2024-02-12] MEDS: Fluticasone/Umeclidinium/Vilanterol 100/62.5/25 BLST.W.DEV 1 PUFF INHALE (08:20)
[2024-02-12 08:22] VITALS: PULSE 65; RESP 16; O2SAT 96
[2024-02-12 08:36] VITALS: BP 143/89
[2024-02-12] MEDS: Cholecalciferol (Vitamin D3) 25 MCG TABLET PO (08:36)
[2024-02-12] MEDS: Aspirin Enteric Coated 81 MG TABLET.DR PO (08:36)
[2024-02-12] MEDS: FLUoxetine HCl 20 MG CAPSULE PO (08:36)
[2024-02-12] MEDS: amLODIPine Besylate 5 MG TABLET PO (08:36)
[2024-02-12] MEDS: Gabapentin 100 MG CAPSULE PO (08:36)
[2024-02-12] MEDS: Acetaminophen 325 MG TABLET 650 MG PO ×2 (08:47→19:55)
--- NOTE | 2024-02-12 11:22 | HO.PM.IMPN ---
Subjective Subjective Date of Service: 02/12/24 Interval History: No acute issues overnight Review of Systems Denies chest pain Denies shortness of breath Denies nausea vomiting diarrhea no fever chills Physical Exam Vital Signs: Vital Signs: Last Vital Signs Temp 97.3 F 02/12/24 07:36 Pulse 65 02/12/24 08:22 Resp 16 02/12/24 08:22 BP 143/89 H 02/12/24 08:36 Pulse Ox 96 02/12/24 07:36 O2 Del Method Room Air 02/12/24 07:36 O2 Flow Rate 3 12/22/23 20:00 BMI result Body Mass Index 28.0 Const: Other: Awake alert no acute distress Resp: Other: Clear to auscultation bilaterally no rales rhonchi or wheezes Cardio: Other: No S4; positive S1-S2; no S3 murmurs rubs or gallops GI: Other: Soft nontender nondistended normoactive bowel sounds Extrem: Other: No edema bilaterally Objective Data Active Medications Acetaminophen (Acetaminophen 325 Mg Tablet) 650 mg PO Q6H PRN PRN Reason: Pain, Mild (Pain Scale 1-3), fever or headache Last Admin: 02/12/24 08:47 Dose: 650 mg Documented By: ASMITA Albuterol Sulfate (Albuterol Sulfate 90 Mcg 8 Gm Inhaler) 2 puff INHALE RQ6H PRN PRN Reason: sob Last Admin: 01/16/24 13:46 Dose: 2 puff Documented By: DOMINIQUE Comments: Patient reporting SOB. Per respiratory, unavailable to administer at this time, ana miguel RN to administer. Amlodipine Besylate (Amlodipine Besylate 5 Mg Tablet) 5 mg PO DAILY [facility]; Protocol Last Admin: 02/12/24 08:36 Dose: 5 mg Documented By: ASMITA Artificial Tears (Artificial Tears 15 Ml Drops) 2 drop EYE-BOTH Q4H PRN PRN Reason: Dry Eyes Last Admin: 12/21/23 03:08 Dose: 2 drop Documented By: YOMI Aspirin (Aspirin Enteric Coated 81 Mg Tablet.) 81 mg PO DAILY [facility] Last Admin: 02/12/24 08:36 Dose: 81 mg Documented By: ASMITA Atorvastatin Calcium (Atorvastatin Calcium 20 Mg Tablet) 20 mg PO BEDTIME [facility] Last Admin: 02/11/24 19:47 Dose: 20 mg Documented By: TRISTAN Calcium Carbonate (Calcium Carbonate 750 Mg Tab.Chew) 750 mg PO Q4H PRN PRN Reason: Heartburn Capsaicin (Capsaicin 0.025% Cream 60 Gm Tube) 1 appl TOPICAL QID PRN; Protocol PRN Reason: Pain, Moderate(Pain Scale 4-6) Last Admin: 02/03/24 08:34 Dose: 1 appl Documented By: COOKIE Enoxaparin Sodium (Enoxaparin Sodium 40 Mg/0.4 Ml Syringe) 40 mg SUBCUT Q24H [facility] Last Admin: 02/11/24 19:46 Dose: 40 mg Documented By: TRISTAN Fluoxetine HCl (Fluoxetine Hcl 20 Mg Capsule) 20 mg PO DAILY [facility] Last Admin: 02/12/24 08:36 Dose: 20 mg Documented By: ASMITA Fluticasone/Umeclidinium/Vilanterol (Fluticasone/Umeclidinium/Vilanterol 100/62.5/25 Blst.W.Dev) 1 puff INHALE RDAILY [facility] Last Admin: 02/12/24 08:20 Dose: 1 puff Documented By: KRISHNA Gabapentin (Gabapentin 100 Mg Capsule) 100 mg PO DAILY [facility] Last Admin: 02/12/24 08:36 Dose: 100 mg Documented By: ASMITA Magnesium Hydroxide (Milk Of Magnesia 30 Ml Oral.Susp) 30 ml PO DAILY PRN PRN Reason: Constipation Last Admin: 12/08/23 08:25 Dose: 30 ml Documented By: AUDI Melatonin (Melatonin 3 Mg Tablet) 6 mg PO BEDTIME PRN PRN Reason: Insomnia Last Admin: 02/11/24 19:47 Dose: 6 mg Documented By: TRISTAN Montelukast Sodium (Montelukast Sodium 10 Mg Tablet) 10 mg PO BEDTIME [facility] Last Admin: 02/11/24 19:47 Dose: 10 mg Documented By: TRISTAN Tramadol HCl (Tramadol Hcl 50 Mg Tablet) 25 mg PO Q4H PRN PRN Reason: Pain, Severe (Pain Scale 7-10) Last Admin: 02/11/24 18:04 Dose: 25 mg Documented By: HATTIE Trazodone HCl (Trazodone Hcl 50 Mg Tablet) 50 mg PO BEDTIME [facility] Last Admin: 02/11/24 19:47 Dose: 50 mg Documented By: TRISTAN Vitamin D (Cholecalciferol (Vitamin D3) 25 Mcg Tablet) 25 mcg PO DAILY [facility] Last Admin: 02/12/24 08:36 Dose: 25 mcg Documented By: PRISCILANM Labs 02/02/24 05:45 02/01/24 05:47 Assessment and Plan (1) Major neurocognitive disorder: Status: Acute Plan 83M PMH copd, htn, hld, dementia unspecified, prostate ca, sent in from retirement after inappropriately interaction with another female resident. 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 Stop hctz d/t low sodium hypOnatremia--back to normal at 136 -probably to hctz, stopped, follow sodium leukocytosis--resolved hld - statin l dvt prophylaxis - lovenox dnr/dni reason for continued hospitalization:dispo planning out of bed to chair, Quality Stroke Does the patient have a stroke diagnosis?: No VTE Prior VTE?: No VTE Risk Level:: Medical - moderate - high VTE Device Contraindication: Treatment Not Indicated VTE Drug Contraindication: N/A - Med Ordered
[2024-02-12 15:17] VITALS: BP 133/62; PULSE 59; RESP 14; TEMP 36.4; O2SAT 98
[2024-02-12 19:02] VITALS: BP 132/63; PULSE 54; RESP 14; TEMP 36.2; O2SAT 96
[2024-02-12] MEDS: traZODone HCL 50 MG TABLET PO (19:55)
[2024-02-12] MEDS: Atorvastatin Calcium 20 MG TABLET PO (19:55)
[2024-02-12] MEDS: Montelukast Sodium 10 MG TABLET PO (19:56)
[2024-02-12] MEDS: traMADoL HCL 50 MG TABLET 25 MG PO (19:56)
[2024-02-12] MEDS: Enoxaparin Sodium 40 MG/0.4 ML SYRINGE SUBCUT (19:58)
[2024-02-13 03:25] VITALS: BP 122/60; PULSE 63; RESP 16; TEMP 37.1; O2SAT 97
[2024-02-13 05:31] VITALS: PULSE 82; RESP 18; O2SAT 99
[2024-02-13] MEDS: Albuterol Sulfate 90 MCG 8 GM INHALER 2 PUFF INHALE (05:31)
[2024-02-13 07:39] VITALS: BP 130/59; PULSE 68; RESP 18; TEMP 36.8; O2SAT 95
[2024-02-13] MEDS: amLODIPine Besylate 5 MG TABLET PO (07:44)
[2024-02-13] MEDS: Gabapentin 100 MG CAPSULE PO (07:44)
[2024-02-13] MEDS: FLUoxetine HCl 20 MG CAPSULE PO (07:44)
[2024-02-13] MEDS: Cholecalciferol (Vitamin D3) 25 MCG TABLET PO (07:44)
[2024-02-13] MEDS: Aspirin Enteric Coated 81 MG TABLET.DR PO (07:44)
[2024-02-13] MEDS: Acetaminophen 325 MG TABLET 650 MG PO ×3 (07:44→22:29)
--- NOTE | 2024-02-13 10:44 | MHC.CM.PN ---
CM continues to await response from [facility] on bed availability.
--- NOTE | 2024-02-13 12:17 | HO.PM.IMPN ---
Subjective Subjective Date of Service: 02/13/24 Interval History: No acute issues overnight. Remains pleasantly confused Review of Systems Denies chest pain Denies shortness of breath Denies nausea vomiting diarrhea no fever chills Physical Exam Vital Signs: Vital Signs: Last Vital Signs Temp 98.3 F 02/13/24 07:39 Pulse 68 02/13/24 07:39 Resp 18 02/13/24 07:39 BP 130/59 L 02/13/24 07:39 Pulse Ox 95 02/13/24 07:39 O2 Del Method Room Air 02/13/24 07:39 O2 Flow Rate 3 12/22/23 20:00 BMI result Body Mass Index 28.0 Const: Other: Awake alert no acute distress Resp: Other: Clear to auscultation bilaterally no rales rhonchi or wheezes Cardio: Other: No S4; positive S1-S2; no S3 murmurs rubs or gallops GI: Other: Soft nontender nondistended normoactive bowel sounds Extrem: Other: No edema bilaterally Objective Data Active Medications Acetaminophen (Acetaminophen 325 Mg Tablet) 650 mg PO Q6H PRN PRN Reason: Pain, Mild (Pain Scale 1-3), fever or headache Last Admin: 02/13/24 07:44 Dose: 650 mg Documented By: ASMITA Albuterol Sulfate (Albuterol Sulfate 90 Mcg 8 Gm Inhaler) 2 puff INHALE RQ6H PRN PRN Reason: sob Last Admin: 02/13/24 05:31 Dose: 2 puff Documented By: NOÉ Amlodipine Besylate (Amlodipine Besylate 5 Mg Tablet) 5 mg PO DAILY [facility]; Protocol Last Admin: 02/13/24 07:44 Dose: 5 mg Documented By: ASMITA Artificial Tears (Artificial Tears 15 Ml Drops) 2 drop EYE-BOTH Q4H PRN PRN Reason: Dry Eyes Last Admin: 12/21/23 03:08 Dose: 2 drop Documented By: YOMI Aspirin (Aspirin Enteric Coated 81 Mg Tablet.) 81 mg PO DAILY [facility] Last Admin: 02/13/24 07:44 Dose: 81 mg Documented By: ASMITA Atorvastatin Calcium (Atorvastatin Calcium 20 Mg Tablet) 20 mg PO BEDTIME [facility] Last Admin: 02/12/24 19:55 Dose: 20 mg Documented By: VIRGINIE Calcium Carbonate (Calcium Carbonate 750 Mg Tab.Chew) 750 mg PO Q4H PRN PRN Reason: Heartburn Capsaicin (Capsaicin 0.025% Cream 60 Gm Tube) 1 appl TOPICAL QID PRN; Protocol PRN Reason: Pain, Moderate(Pain Scale 4-6) Last Admin: 02/03/24 08:34 Dose: 1 appl Documented By: COOKIE Enoxaparin Sodium (Enoxaparin Sodium 40 Mg/0.4 Ml Syringe) 40 mg SUBCUT Q24H [facility] Last Admin: 02/12/24 19:58 Dose: 40 mg Documented By: VIRGINIE Fluoxetine HCl (Fluoxetine Hcl 20 Mg Capsule) 20 mg PO DAILY [facility] Last Admin: 02/13/24 07:44 Dose: 20 mg Documented By: ASMITA Fluticasone/Umeclidinium/Vilanterol (Fluticasone/Umeclidinium/Vilanterol 100/62.5/25 Blst.W.Dev) 1 puff INHALE RDAILY [facility] Last Admin: 02/13/24 07:47 Dose: Not Given Documented By: KAYLEIGH Non-Admin Reason: Patient Condition Contraindication Gabapentin (Gabapentin 100 Mg Capsule) 100 mg PO DAILY [facility] Last Admin: 02/13/24 07:44 Dose: 100 mg Documented By: ASMITA Magnesium Hydroxide (Milk Of Magnesia 30 Ml Oral.Susp) 30 ml PO DAILY PRN PRN Reason: Constipation Last Admin: 12/08/23 08:25 Dose: 30 ml Documented By: AUDI Melatonin (Melatonin 3 Mg Tablet) 6 mg PO BEDTIME PRN PRN Reason: Insomnia Last Admin: 02/11/24 19:47 Dose: 6 mg Documented By: TRISTAN Montelukast Sodium (Montelukast Sodium 10 Mg Tablet) 10 mg PO BEDTIME [facility] Last Admin: 02/12/24 19:56 Dose: 10 mg Documented By: VIRGINIE Trazodone HCl (Trazodone Hcl 50 Mg Tablet) 50 mg PO BEDTIME [facility] Last Admin: 02/12/24 19:55 Dose: 50 mg Documented By: VIRGINIE Vitamin D (Cholecalciferol (Vitamin D3) 25 Mcg Tablet) 25 mcg PO DAILY [facility] Last Admin: 02/13/24 07:44 Dose: 25 mcg Documented By: ASMITA Labs 02/02/24 05:45 02/01/24 05:47 Assessment and Plan (1) Major neurocognitive disorder: Status: Acute Plan 83M PMH copd, htn, hld, dementia unspecified, prostate ca, sent in from longterm after inappropriately interaction with another female resident. 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 Stop hctz d/t low sodium hypOnatremia--back to normal at 136 -probably to hctz, stopped, follow sodium leukocytosis--resolved hld - statin l dvt prophylaxis - lovenox dnr/dni reason for continued hospitalization:dispo planning out of bed to chair, Quality Stroke Does the patient have a stroke diagnosis?: No VTE Prior VTE?: No VTE Risk Level:: Medical - moderate - high VTE Device Contraindication: Treatment Not Indicated VTE Drug Contraindication: N/A - Med Ordered
[2024-02-13 15:24] VITALS: BP 131/63; PULSE 61; RESP 18; TEMP 37.2; O2SAT 98
[2024-02-13 19:12] VITALS: BP 143/72; PULSE 85; RESP 20; TEMP 36.9; O2SAT 95
[2024-02-13] MEDS: traMADoL HCL 50 MG TABLET 25 MG PO (20:07)
[2024-02-13] MEDS: traZODone HCL 50 MG TABLET PO (20:07)
[2024-02-13] MEDS: Atorvastatin Calcium 20 MG TABLET PO (20:07)
[2024-02-13] MEDS: Montelukast Sodium 10 MG TABLET PO (20:07)
[2024-02-13] MEDS: Enoxaparin Sodium 40 MG/0.4 ML SYRINGE SUBCUT (20:14)
[2024-02-14 03:20] VITALS: BP 124/61; PULSE 62; RESP 16; TEMP 36.7; O2SAT 97
[2024-02-14 07:50] VITALS: BP 140/68; PULSE 72; RESP 16; TEMP 36.4; O2SAT 97
[2024-02-14] MEDS: Fluticasone/Umeclidinium/Vilanterol 100/62.5/25 BLST.W.DEV 1 PUFF INHALE (08:03)
[2024-02-14 08:05] VITALS: PULSE 64; RESP 16; O2SAT 96
[2024-02-14] MEDS: FLUoxetine HCl 20 MG CAPSULE PO (08:56)
[2024-02-14] MEDS: Cholecalciferol (Vitamin D3) 25 MCG TABLET PO (08:56)
[2024-02-14] MEDS: Aspirin Enteric Coated 81 MG TABLET.DR PO (08:56)
[2024-02-14] MEDS: Acetaminophen 325 MG TABLET 650 MG PO ×2 (08:56→19:11)
[2024-02-14] MEDS: Gabapentin 100 MG CAPSULE PO (08:56)
[2024-02-14] MEDS: amLODIPine Besylate 5 MG TABLET PO (08:56)
--- NOTE | 2024-02-14 12:29 | HO.PM.IMPN ---
Subjective Subjective Date of Service: 02/14/24 Interval History: No acute issues overnight Review of Systems Denies chest pain Denies shortness of breath Denies nausea vomiting diarrhea no fever chills Physical Exam Vital Signs: Vital Signs: Last Vital Signs Temp 97.6 F 02/14/24 07:50 Pulse 64 02/14/24 08:05 Resp 16 02/14/24 08:05 BP 140/68 H 02/14/24 07:50 Pulse Ox 97 02/14/24 07:50 O2 Del Method Room Air 02/14/24 07:50 O2 Flow Rate 3 12/22/23 20:00 BMI result Body Mass Index 28.0 Const: Other: Awake alert no acute distress Resp: Other: Clear to auscultation bilaterally no rales rhonchi or wheezes Cardio: Other: No S4; positive S1-S2; no S3 murmurs rubs or gallops GI: Other: Soft nontender nondistended normoactive bowel sounds Extrem: Other: No edema bilaterally Objective Data Active Medications Acetaminophen (Acetaminophen 325 Mg Tablet) 650 mg PO Q6H PRN PRN Reason: Pain, Mild (Pain Scale 1-3), fever or headache Last Admin: 02/14/24 08:56 Dose: 650 mg Documented By: CAMILLA Albuterol Sulfate (Albuterol Sulfate 90 Mcg 8 Gm Inhaler) 2 puff INHALE RQ6H PRN PRN Reason: sob Last Admin: 02/13/24 05:31 Dose: 2 puff Documented By: NOÉ Amlodipine Besylate (Amlodipine Besylate 5 Mg Tablet) 5 mg PO DAILY [facility]; Protocol Last Admin: 02/14/24 08:56 Dose: 5 mg Documented By: CAMILLA Artificial Tears (Artificial Tears 15 Ml Drops) 2 drop EYE-BOTH Q4H PRN PRN Reason: Dry Eyes Last Admin: 12/21/23 03:08 Dose: 2 drop Documented By: YOMI Aspirin (Aspirin Enteric Coated 81 Mg Tablet.) 81 mg PO DAILY [facility] Last Admin: 02/14/24 08:56 Dose: 81 mg Documented By: CAMILLA Atorvastatin Calcium (Atorvastatin Calcium 20 Mg Tablet) 20 mg PO BEDTIME [facility] Last Admin: 02/13/24 20:07 Dose: 20 mg Documented By: VIRGINIE Calcium Carbonate (Calcium Carbonate 750 Mg Tab.Chew) 750 mg PO Q4H PRN PRN Reason: Heartburn Capsaicin (Capsaicin 0.025% Cream 60 Gm Tube) 1 appl TOPICAL QID PRN; Protocol PRN Reason: Pain, Moderate(Pain Scale 4-6) Last Admin: 02/03/24 08:34 Dose: 1 appl Documented By: COOKIE Enoxaparin Sodium (Enoxaparin Sodium 40 Mg/0.4 Ml Syringe) 40 mg SUBCUT Q24H [facility] Last Admin: 02/13/24 20:14 Dose: 40 mg Documented By: VIRGINIE Fluoxetine HCl (Fluoxetine Hcl 20 Mg Capsule) 20 mg PO DAILY [facility] Last Admin: 02/14/24 08:56 Dose: 20 mg Documented By: CAMILLA Fluticasone/Umeclidinium/Vilanterol (Fluticasone/Umeclidinium/Vilanterol 100/62.5/25 Blst.W.Dev) 1 puff INHALE RDAILY [facility] Last Admin: 02/14/24 08:03 Dose: 1 puff Documented By: KRISHNA Gabapentin (Gabapentin 100 Mg Capsule) 100 mg PO DAILY [facility] Last Admin: 02/14/24 08:56 Dose: 100 mg Documented By: CAMILLA Magnesium Hydroxide (Milk Of Magnesia 30 Ml Oral.Susp) 30 ml PO DAILY PRN PRN Reason: Constipation Last Admin: 12/08/23 08:25 Dose: 30 ml Documented By: AUDI Melatonin (Melatonin 3 Mg Tablet) 6 mg PO BEDTIME PRN PRN Reason: Insomnia Last Admin: 02/11/24 19:47 Dose: 6 mg Documented By: TRISTAN Montelukast Sodium (Montelukast Sodium 10 Mg Tablet) 10 mg PO BEDTIME [facility] Last Admin: 02/13/24 20:07 Dose: 10 mg Documented By: VIRGINIE Tramadol HCl (Tramadol Hcl 50 Mg Tablet) 25 mg PO Q4H PRN PRN Reason: Pain, Severe (Pain Scale 7-10) Last Admin: 02/13/24 20:07 Dose: 25 mg Documented By: VIRGINIE Trazodone HCl (Trazodone Hcl 50 Mg Tablet) 50 mg PO BEDTIME [facility] Last Admin: 02/13/24 20:07 Dose: 50 mg Documented By: VIRGINIE Vitamin D (Cholecalciferol (Vitamin D3) 25 Mcg Tablet) 25 mcg PO DAILY [facility] Last Admin: 02/14/24 08:56 Dose: 25 mcg Documented By: CAMILLA Labs 02/02/24 05:45 02/01/24 05:47 Assessment and Plan (1) Major neurocognitive disorder: Status: Acute Plan 83M PMH copd, htn, hld, dementia unspecified, prostate ca, [facility] [place] [facility] after inappropriately interaction with another female resident. 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 Stop hctz d/t low sodium hypOnatremia--back to normal at 136 -probably to hctz, stopped, follow sodium leukocytosis--resolved hld - statin l dvt prophylaxis - lovenox dnr/dni reason for continued hospitalization:dispo planning out of bed to chair, Quality Stroke Does the patient have a stroke diagnosis?: No VTE Prior VTE?: No VTE Risk Level:: Medical - moderate - high VTE Device Contraindication: Treatment Not Indicated VTE Drug Contraindication: N/A - Med Ordered
[2024-02-14 15:15] VITALS: BP 149/70; PULSE 62; RESP 20; TEMP 36.8; O2SAT 98
[2024-02-14 19:07] VITALS: BP 117/58; PULSE 73; RESP 20; TEMP 36.3; O2SAT 96
[2024-02-14] MEDS: traMADoL HCL 50 MG TABLET 25 MG PO (19:10)
[2024-02-14] MEDS: Montelukast Sodium 10 MG TABLET PO (19:11)
[2024-02-14] MEDS: traZODone HCL 50 MG TABLET PO (19:11)
[2024-02-14] MEDS: Atorvastatin Calcium 20 MG TABLET PO (19:11)
[2024-02-14] MEDS: Melatonin 3 MG TABLET 6 MG PO (19:11)
[2024-02-14] MEDS: Enoxaparin Sodium 40 MG/0.4 ML SYRINGE SUBCUT (19:15)
[2024-02-15 03:32] VITALS: BP 138/64; PULSE 65; RESP 14; TEMP 36.1; O2SAT 95
[2024-02-15 07:33] VITALS: BP 119/72; PULSE 63; RESP 18; TEMP 36.4; O2SAT 96
[2024-02-15] MEDS: Gabapentin 100 MG CAPSULE PO (08:02)
[2024-02-15] MEDS: amLODIPine Besylate 5 MG TABLET PO (08:02)
[2024-02-15] MEDS: Cholecalciferol (Vitamin D3) 25 MCG TABLET PO (08:02)
[2024-02-15] MEDS: FLUoxetine HCl 20 MG CAPSULE PO (08:02)
[2024-02-15] MEDS: Aspirin Enteric Coated 81 MG TABLET.DR PO (08:02)
[2024-02-15] MEDS: Fluticasone/Umeclidinium/Vilanterol 100/62.5/25 BLST.W.DEV 1 PUFF INHALE (08:23)
[2024-02-15 08:24] VITALS: PULSE 63; RESP 18; O2SAT 96
--- NOTE | 2024-02-15 09:07 | MHC.CM.PN ---
Addendum entered by Caitlin Villavicencio RN 02/15/24 15:15: POA AND SON CHRISTIANS CONTACT INFO SENT TO [facility]IA [facility] Original Note: EMR REVIEWED, CM RECIEVED MESSAGE FROM [facility] REQUESTING CONTACT NUMBER FOR [facility], [facility] CONTACT NAME AND # SENT TO [facility]IA [facility] CM RECEIVED ANOTHER MESSAGE ASKING IF PT'S DTR WILL APPLY FOR [place] MEDICAID AND SHE NEEDS TO SIGN A FINANCIAL DISCLOSURE, CM DIRECTOR AWARE.
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
[2024-02-15 15:06] VITALS: BP 137/65; PULSE 58; RESP 20; TEMP 36.5; O2SAT 96
[2024-02-15 19:03] VITALS: BP 141/67; PULSE 67; RESP 20; TEMP 36.7; O2SAT 95
[2024-02-15] MEDS: traMADoL HCL 50 MG TABLET 25 MG PO (19:24)
[2024-02-15] MEDS: traZODone HCL 50 MG TABLET PO (19:25)
[2024-02-15] MEDS: Montelukast Sodium 10 MG TABLET PO (19:26)
[2024-02-15] MEDS: Enoxaparin Sodium 40 MG/0.4 ML SYRINGE SUBCUT (19:26)
[2024-02-15] MEDS: Atorvastatin Calcium 20 MG TABLET PO (19:26)
[2024-02-16] MEDS: Melatonin 3 MG TABLET 6 MG PO (00:23)
[2024-02-16] MEDS: Acetaminophen 325 MG TABLET 650 MG PO ×2 (00:24→18:44)
[2024-02-16 03:24] VITALS: BP 106/52; PULSE 60; RESP 18; TEMP 36.4; O2SAT 97
[2024-02-16 07:15] VITALS: BP 138/87; PULSE 62
[2024-02-16] MEDS: Aspirin Enteric Coated 81 MG TABLET.DR PO (07:17)
[2024-02-16] MEDS: amLODIPine Besylate 5 MG TABLET PO (07:17)
[2024-02-16] MEDS: Gabapentin 100 MG CAPSULE PO (07:18)
[2024-02-16] MEDS: FLUoxetine HCl 20 MG CAPSULE PO (07:18)
[2024-02-16] MEDS: Cholecalciferol (Vitamin D3) 25 MCG TABLET PO (07:18)
[2024-02-16] MEDS: traMADoL HCL 50 MG TABLET 25 MG PO ×3 (07:25→20:27)
[2024-02-16 07:58] VITALS: BP 114/57; PULSE 62; RESP 16; TEMP 36.3; O2SAT 99
[2024-02-16 08:06] VITALS: PULSE 64; RESP 18; O2SAT 90
[2024-02-16] MEDS: Fluticasone/Umeclidinium/Vilanterol 100/62.5/25 BLST.W.DEV 1 PUFF INHALE (08:06)
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
--- NOTE | 2024-02-16 14:16 | MHC.CM.PN ---
Addendum entered by Caitlin Villavicencio RN 02/16/24 16:23: CM RECEIVED CALL BACK FROM [facility] WHO REPORTS HE WILL ASSIST SNF W/CT MEDICAID APPLICATION AND WILL LOOK OUT FOR CALL FROM [facility] TOMORROW, [facility] UPDATED VIA [employer]. Original Note: EMR REVIEWED, PT AWAITING BED AT [facility] IN [facility], PER LIAISON SHE HAS NOT CONTACTED PT'S SON/POA PETEY YET AND WILL DO SO IN AM, THIS CM DID ATTEMPT TO REACH OUT TO [facility] 2:12PM AT NUMBER ON FILE HOWEVER NO ANSWER, DETAILED MESSAGE LEFT. FACILITY WILL NEED PETEY TO SIGN FINANCIAL DISCLOSURE AND ASSIST W/TRANSFERRING MEDICAID TO [place]., CM WILL CONT TO FOLLOW.
[2024-02-16 15:21] VITALS: BP 150/66; PULSE 58; RESP 16; TEMP 36.3; O2SAT 98
[2024-02-16 19:32] VITALS: BP 131/60; PULSE 58; RESP 18; TEMP 36.6; O2SAT 98
[2024-02-16] MEDS: traZODone HCL 50 MG TABLET PO (20:01)
[2024-02-16] MEDS: Atorvastatin Calcium 20 MG TABLET PO (20:01)
[2024-02-16] MEDS: Montelukast Sodium 10 MG TABLET PO (20:01)
[2024-02-16] MEDS: Enoxaparin Sodium 40 MG/0.4 ML SYRINGE SUBCUT (20:01)
[2024-02-17 04:00] VITALS: BP 130/56; PULSE 68; RESP 18; TEMP 37; O2SAT 96
[2024-02-17 07:17] VITALS: BP 124/58; PULSE 71; RESP 16; TEMP 36.7; O2SAT 94
[2024-02-17] MEDS: Fluticasone/Umeclidinium/Vilanterol 100/62.5/25 BLST.W.DEV 1 PUFF INHALE (07:59)
[2024-02-17 08:03] VITALS: PULSE 64; RESP 16; O2SAT 100
[2024-02-17] MEDS: FLUoxetine HCl 20 MG CAPSULE PO (08:57)
[2024-02-17] MEDS: Acetaminophen 325 MG TABLET 650 MG PO (08:57)
[2024-02-17] MEDS: Aspirin Enteric Coated 81 MG TABLET.DR PO (08:57)
[2024-02-17 08:58] VITALS: BP 127/59
[2024-02-17] MEDS: amLODIPine Besylate 5 MG TABLET PO (08:58)
[2024-02-17] MEDS: Cholecalciferol (Vitamin D3) 25 MCG TABLET PO (08:58)
[2024-02-17] MEDS: Gabapentin 100 MG CAPSULE PO (09:46)
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
--- NOTE | 2024-02-17 12:44 | MHC.CM.PN ---
EMR REVIEWED, [facility] TO FINALIZE FINACIALS W/[facility]/POPanchito ANGELO CM AWAITING ANTIC ADMISSION DATE FROM [facility], PT WILL DC TO [facility] [place], CM WILL CONT TO FOLLOW.
[2024-02-17 15:12] VITALS: BP 139/63; PULSE 59; RESP 14; TEMP 36.8; O2SAT 97
[2024-02-17 19:15] VITALS: BP 138/62; PULSE 76; RESP 16; TEMP 36.8; O2SAT 96
[2024-02-17] MEDS: traZODone HCL 50 MG TABLET PO (20:02)
[2024-02-17] MEDS: Atorvastatin Calcium 20 MG TABLET PO (20:02)
[2024-02-17] MEDS: traMADoL HCL 50 MG TABLET 25 MG PO (20:02)
[2024-02-17] MEDS: Montelukast Sodium 10 MG TABLET PO (20:02)
[2024-02-17] MEDS: Enoxaparin Sodium 40 MG/0.4 ML SYRINGE SUBCUT (20:02)
[2024-02-18 03:43] VITALS: BP 136/63; PULSE 76; RESP 16; TEMP 36.7; O2SAT 95
[2024-02-18 07:35] VITALS: BP 146/65; PULSE 76; RESP 18; TEMP 36.4; O2SAT 97
[2024-02-18] MEDS: Fluticasone/Umeclidinium/Vilanterol 100/62.5/25 BLST.W.DEV 1 PUFF INHALE (07:51)
[2024-02-18 07:52] VITALS: PULSE 76; RESP 18; O2SAT 97
[2024-02-18] MEDS: Aspirin Enteric Coated 81 MG TABLET.DR PO (08:28)
[2024-02-18] MEDS: amLODIPine Besylate 5 MG TABLET PO (08:28)
[2024-02-18] MEDS: Gabapentin 100 MG CAPSULE PO (08:28)
[2024-02-18] MEDS: traMADoL HCL 50 MG TABLET 25 MG PO ×2 (08:29→15:18)
[2024-02-18] MEDS: Cholecalciferol (Vitamin D3) 25 MCG TABLET PO (08:29)
[2024-02-18] MEDS: FLUoxetine HCl 20 MG CAPSULE PO (08:29)
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
[2024-02-18] MEDS: Acetaminophen 325 MG TABLET 650 MG PO ×2 (12:55→22:07)
[2024-02-18 15:20] VITALS: BP 140/64; PULSE 62; RESP 16; TEMP 36.8; O2SAT 96
[2024-02-18 16:15] VITALS: RESP 18
[2024-02-18 20:00] VITALS: BP 140/61; PULSE 57; RESP 18; TEMP 36.8; O2SAT 99
[2024-02-18] MEDS: Atorvastatin Calcium 20 MG TABLET PO (22:06)
[2024-02-18] MEDS: Enoxaparin Sodium 40 MG/0.4 ML SYRINGE SUBCUT (22:07)
[2024-02-18] MEDS: traZODone HCL 50 MG TABLET PO (22:07)
[2024-02-18] MEDS: Montelukast Sodium 10 MG TABLET PO (22:14)
[2024-02-19 03:13] VITALS: BP 127/76; PULSE 64; RESP 18; TEMP 36.8; O2SAT 97
[2024-02-19 08:00] VITALS: BP 157/61; PULSE 64; RESP 18; TEMP 36.3; O2SAT 97
[2024-02-19] MEDS: Fluticasone/Umeclidinium/Vilanterol 100/62.5/25 BLST.W.DEV 1 PUFF INHALE (08:00)
[2024-02-19 08:08] VITALS: PULSE 67; RESP 20; O2SAT 97
[2024-02-19] MEDS: Gabapentin 100 MG CAPSULE PO (08:33)
[2024-02-19] MEDS: Cholecalciferol (Vitamin D3) 25 MCG TABLET PO (08:34)
[2024-02-19] MEDS: amLODIPine Besylate 5 MG TABLET PO (08:34)
[2024-02-19] MEDS: FLUoxetine HCl 20 MG CAPSULE PO (08:34)
[2024-02-19] MEDS: Acetaminophen 325 MG TABLET 650 MG PO ×2 (08:34→19:51)
[2024-02-19] MEDS: Aspirin Enteric Coated 81 MG TABLET.DR PO (08:34)
--- NOTE | 2024-02-19 09:29 | HO.PM.IMPN ---
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, Oriented to self/no acute events overnight/no new complaints Review of Systems Unable to obtain due to dementia Physical Exam Vital Signs: Vital Signs: Last Vital Signs Temp 97.3 F 02/19/24 08:00 Pulse 67 02/19/24 08:08 Resp 20 02/19/24 08:08 BP 157/61 H 02/19/24 08:00 Pulse Ox 97 02/19/24 08:00 O2 Del Method Room Air 02/19/24 08:00 O2 Flow Rate 3 12/22/23 20:00 BMI result Body Mass Index 28.0 Const: Other: General: Awake ,alert, no acute distress No JVD Resp: CTA bilateral CVS: S1,S2,RRR GI: +BS, NT, no distention Skin: No rash Left knee swollen, no hyperemia, no warmth, good knee flexion, pain with left knee movement Neuro: motor grossly intact, oriented to self Psych: Objective Data Active Medications Acetaminophen (Acetaminophen 325 Mg Tablet) 650 mg PO Q6H PRN PRN Reason: Pain, Mild (Pain Scale 1-3), fever or headache Last Admin: 02/17/24 08:57 Dose: 650 mg Documented By: IFEANYI Acetaminophen (Acetaminophen 325 Mg Tablet) 650 mg PO BID [facility] Last Admin: 02/19/24 08:34 Dose: 650 mg Documented By: SAMMIE Albuterol Sulfate (Albuterol Sulfate 90 Mcg 8 Gm Inhaler) 2 puff INHALE RQ6H PRN PRN Reason: sob Last Admin: 02/13/24 05:31 Dose: 2 puff Documented By: NOÉ Amlodipine Besylate (Amlodipine Besylate 5 Mg Tablet) 5 mg PO DAILY [facility]; Protocol Last Admin: 02/19/24 08:34 Dose: 5 mg Documented By: SAMMIE Artificial Tears (Artificial Tears 15 Ml Drops) 2 drop EYE-BOTH Q4H PRN PRN Reason: Dry Eyes Last Admin: 12/21/23 03:08 Dose: 2 drop Documented By: YOMI Aspirin (Aspirin Enteric Coated 81 Mg Tablet.) 81 mg PO DAILY [facility] Last Admin: 02/19/24 08:34 Dose: 81 mg Documented By: SAMMIE Atorvastatin Calcium (Atorvastatin Calcium 20 Mg Tablet) 20 mg PO BEDTIME [facility] Last Admin: 02/18/24 22:06 Dose: 20 mg Documented By: JESSICA Calcium Carbonate (Calcium Carbonate 750 Mg Tab.Chew) 750 mg PO Q4H PRN PRN Reason: Heartburn Capsaicin (Capsaicin 0.025% Cream 60 Gm Tube) 1 appl TOPICAL QID PRN; Protocol PRN Reason: Pain, Moderate(Pain Scale 4-6) Last Admin: 02/03/24 08:34 Dose: 1 appl Documented By: COOKIE Enoxaparin Sodium (Enoxaparin Sodium 40 Mg/0.4 Ml Syringe) 40 mg SUBCUT Q24H [facility] Last Admin: 02/18/24 22:07 Dose: 40 mg Documented By: JESSICA Fluoxetine HCl (Fluoxetine Hcl 20 Mg Capsule) 20 mg PO DAILY [facility] Last Admin: 02/19/24 08:34 Dose: 20 mg Documented By: SAMMIE Fluticasone/Umeclidinium/Vilanterol (Fluticasone/Umeclidinium/Vilanterol 100/62.5/25 Blst.W.Dev) 1 puff INHALE RDAILY [facility] Last Admin: 02/19/24 08:00 Dose: 1 puff Documented By: ADELA Gabapentin (Gabapentin 100 Mg Capsule) 100 mg PO DAILY [facility] Last Admin: 02/19/24 08:33 Dose: 100 mg Documented By: SAMMIE Magnesium Hydroxide (Milk Of Magnesia 30 Ml Oral.Susp) 30 ml PO DAILY PRN PRN Reason: Constipation Last Admin: 12/08/23 08:25 Dose: 30 ml Documented By: AUDI Melatonin (Melatonin 3 Mg Tablet) 6 mg PO BEDTIME PRN PRN Reason: Insomnia Last Admin: 02/16/24 00:23 Dose: 6 mg Documented By: JAYDE Montelukast Sodium (Montelukast Sodium 10 Mg Tablet) 10 mg PO BEDTIME [facility] Last Admin: 02/18/24 22:14 Dose: 10 mg Documented By: JESSICA Tramadol HCl (Tramadol Hcl 50 Mg Tablet) 25 mg PO Q6H PRN PRN Reason: Pain, Severe (Pain Scale 7-10) Last Admin: 02/18/24 15:18 Dose: 25 mg Documented By: CLAUDIA Trazodone HCl (Trazodone Hcl 50 Mg Tablet) 50 mg PO BEDTIME [facility] Last Admin: 02/18/24 22:07 Dose: 50 mg Documented By: JESSICA Vitamin D (Cholecalciferol (Vitamin D3) 25 Mcg Tablet) 25 mcg PO DAILY [facility] Last Admin: 02/19/24 08:34 Dose: 25 mcg Documented By: SAMMIE Labs 02/02/24 05:45 02/01/24 05:47 Assessment and Plan (1) Osteoarthritis of left knee: Status: Acute (2) Cognitive disorder: Status: Acute Plan 83M PMH copd, htn, hld, dementia unspecified, prostate ca, sent in from [place] after inappropriately interaction with another female resident. Unspecified dementia, stable, needs placement Continue Prozac and trazodone, no inappropriate sexual behavior noted during hospitalization . left knee osteoarthritis continue as needed tramadol, Aspercreme , scheduled Tylenol twice daily, Esau wrap and as needed heat. 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 supervised eating . neuropathic pain--neurontin copd, stable no exacerbation, albuterol prn htn, amldoipine. Stop hctz d/t low sodium hypOnatremia- back to normal at 136, probably due to hctz, stopped, follow sodium as needed leukocytosis--resolved hld, statin dvt prophylaxis - lovenox dnr/dni reason for continued hospitalization:dispo planning out of bed to chair, Quality Stroke Does the patient have a stroke diagnosis?: No VTE Prior VTE?: No VTE Risk Level:: Medical - moderate - high VTE Device Contraindication: Treatment Not Indicated VTE Drug Contraindication: N/A - Med Ordered
[2024-02-19 15:38] VITALS: BP 125/60; PULSE 56; RESP 17; TEMP 36.6; O2SAT 96
[2024-02-19] MEDS: Atorvastatin Calcium 20 MG TABLET PO (19:50)
[2024-02-19] MEDS: traZODone HCL 50 MG TABLET PO (19:50)
[2024-02-19] MEDS: Montelukast Sodium 10 MG TABLET PO (19:50)
[2024-02-19] MEDS: Enoxaparin Sodium 40 MG/0.4 ML SYRINGE SUBCUT (19:52)
[2024-02-19 20:00] VITALS: BP 147/69; PULSE 58; RESP 18; TEMP 37.1; O2SAT 98
[2024-02-20 02:57] VITALS: BP 145/65; PULSE 71; RESP 16; TEMP 36.2; O2SAT 97
[2024-02-20] MEDS: Fluticasone/Umeclidinium/Vilanterol 100/62.5/25 BLST.W.DEV 1 PUFF INHALE (07:27)
[2024-02-20 07:29] VITALS: PULSE 76; RESP 16; O2SAT 95
[2024-02-20 07:42] VITALS: BP 117/56; PULSE 64; RESP 18; TEMP 36.4; O2SAT 97
[2024-02-20] MEDS: traMADoL HCL 50 MG TABLET 25 MG PO ×2 (09:05→15:00)
[2024-02-20] MEDS: Acetaminophen 325 MG TABLET 650 MG PO ×2 (09:11→20:24)
[2024-02-20] MEDS: amLODIPine Besylate 5 MG TABLET PO (09:11)
[2024-02-20] MEDS: Cholecalciferol (Vitamin D3) 25 MCG TABLET PO (09:11)
[2024-02-20] MEDS: FLUoxetine HCl 20 MG CAPSULE PO (09:11)
[2024-02-20] MEDS: Gabapentin 100 MG CAPSULE PO (09:11)
[2024-02-20] MEDS: Aspirin Enteric Coated 81 MG TABLET.DR PO (09:12)
--- NOTE | 2024-02-20 11:01 | HO.PM.IMPN ---
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 No other acute events overnight tolerating diet. Review of Systems Unable to obtain due to dementia. Physical Exam Vital Signs: Vital Signs: Last Vital Signs Temp 97.6 F 02/20/24 07:42 Pulse 64 02/20/24 07:42 Resp 18 02/20/24 07:42 BP 117/56 L 02/20/24 07:42 Pulse Ox 97 02/20/24 07:42 O2 Del Method Room Air 02/20/24 07:42 O2 Flow Rate 3 12/22/23 20:00 BMI result Body Mass Index 28.0 Const: Other: General: Awake ,alert, no acute distress No JVD Resp: CTA bilateral CVS: S1,S2,RRR GI: +BS, NT, no distention Skin: No rash Left knee swollen, no hyperemia, no warmth, good knee flexion, pain with left knee movement Neuro: motor grossly intact, oriented to self Psych: Objective Data Active Medications Acetaminophen (Acetaminophen 325 Mg Tablet) 650 mg PO Q6H PRN PRN Reason: Pain, Mild (Pain Scale 1-3), fever or headache Last Admin: 02/17/24 08:57 Dose: 650 mg Documented By: IFEANYI Acetaminophen (Acetaminophen 325 Mg Tablet) 650 mg PO BID [facility] Last Admin: 02/20/24 09:11 Dose: 650 mg Documented By: ASMITA Albuterol Sulfate (Albuterol Sulfate 90 Mcg 8 Gm Inhaler) 2 puff INHALE RQ6H PRN PRN Reason: sob Last Admin: 02/13/24 05:31 Dose: 2 puff Documented By: NOÉ Amlodipine Besylate (Amlodipine Besylate 5 Mg Tablet) 5 mg PO DAILY [facility]; Protocol Last Admin: 02/20/24 09:11 Dose: 5 mg Documented By: ASMITA Artificial Tears (Artificial Tears 15 Ml Drops) 2 drop EYE-BOTH Q4H PRN PRN Reason: Dry Eyes Last Admin: 12/21/23 03:08 Dose: 2 drop Documented By: YOMI Aspirin (Aspirin Enteric Coated 81 Mg Tablet.) 81 mg PO DAILY [facility] Last Admin: 02/20/24 09:12 Dose: 81 mg Documented By: ASMITA Atorvastatin Calcium (Atorvastatin Calcium 20 Mg Tablet) 20 mg PO BEDTIME [facility] Last Admin: 02/19/24 19:50 Dose: 20 mg Documented By: ADAM Calcium Carbonate (Calcium Carbonate 750 Mg Tab.Chew) 750 mg PO Q4H PRN PRN Reason: Heartburn Capsaicin (Capsaicin 0.025% Cream 60 Gm Tube) 1 appl TOPICAL QID PRN; Protocol PRN Reason: Pain, Moderate(Pain Scale 4-6) Last Admin: 02/03/24 08:34 Dose: 1 appl Documented By: COOKIE Enoxaparin Sodium (Enoxaparin Sodium 40 Mg/0.4 Ml Syringe) 40 mg SUBCUT Q24H [facility] Last Admin: 02/19/24 19:52 Dose: 40 mg Documented By: ADAM Fluoxetine HCl (Fluoxetine Hcl 20 Mg Capsule) 20 mg PO DAILY [facility] Last Admin: 02/20/24 09:11 Dose: 20 mg Documented By: ASMITA Fluticasone/Umeclidinium/Vilanterol (Fluticasone/Umeclidinium/Vilanterol 100/62.5/25 Blst.W.Dev) 1 puff INHALE RDAILY [facility] Last Admin: 02/20/24 07:27 Dose: 1 puff Documented By: KRISHNA Gabapentin (Gabapentin 100 Mg Capsule) 100 mg PO DAILY [facility] Last Admin: 02/20/24 09:11 Dose: 100 mg Documented By: ASMITA Magnesium Hydroxide (Milk Of Magnesia 30 Ml Oral.Susp) 30 ml PO DAILY PRN PRN Reason: Constipation Last Admin: 12/08/23 08:25 Dose: 30 ml Documented By: AUDI Melatonin (Melatonin 3 Mg Tablet) 6 mg PO BEDTIME PRN PRN Reason: Insomnia Last Admin: 02/16/24 00:23 Dose: 6 mg Documented By: JAYDE Montelukast Sodium (Montelukast Sodium 10 Mg Tablet) 10 mg PO BEDTIME [facility] Last Admin: 02/19/24 19:50 Dose: 10 mg Documented By: ADAM Tramadol HCl (Tramadol Hcl 50 Mg Tablet) 25 mg PO Q6H PRN PRN Reason: Pain, Severe (Pain Scale 7-10) Last Admin: 02/20/24 09:05 Dose: 25 mg Documented By: ASMITA Comments: Trazodone HCl (Trazodone Hcl 50 Mg Tablet) 50 mg PO BEDTIME [facility] Last Admin: 02/19/24 19:50 Dose: 50 mg Documented By: ADAM Vitamin D (Cholecalciferol (Vitamin D3) 25 Mcg Tablet) 25 mcg PO DAILY [facility] Last Admin: 02/20/24 09:11 Dose: 25 mcg Documented By: ASMITA Labs 02/02/24 05:45 02/01/24 05:47 Assessment and Plan (1) Left knee pain: Status: Acute Plan 83M PMH copd, htn, hld, dementia unspecified, prostate ca, sent in from [facility] after inappropriately interaction with another female resident. Unspecified dementia, stable, needs placement Continue Prozac and trazodone, no inappropriate sexual behavior noted during hospitalization . left knee osteoarthritis continue as needed tramadol, Aspercreme , scheduled Tylenol twice daily, Esau wrap and as needed heat, no change in examination. 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 supervised eating . neuropathic pain--neurontin copd, stable no exacerbation, albuterol prn htn, amldoipine. Stop hctz d/t low sodium hypOnatremia- back to normal at 136, probably due to hctz, stopped, follow sodium as needed leukocytosis--resolved hld, statin dvt prophylaxis - lovenox dnr/dni reason for continued hospitalization:dispo planning out of bed to chair, Quality Stroke Does the patient have a stroke diagnosis?: No VTE Prior VTE?: No VTE Risk Level:: Medical - moderate - high VTE Device Contraindication: Treatment Not Indicated VTE Drug Contraindication: N/A - Med Ordered
--- NOTE | 2024-02-20 14:45 | MHC.CM.PN ---
EMR reviewed, pt awaiting [facility] to finalize pts financials, and to give a bed offer at one of their sister facilities in [place] for LTC.
[2024-02-20 15:33] VITALS: BP 140/64; PULSE 58; RESP 18; TEMP 36.1; O2SAT 99
[2024-02-20 19:04] VITALS: BP 143/63; PULSE 61; RESP 18; TEMP 36.8; O2SAT 99
[2024-02-20] MEDS: Atorvastatin Calcium 20 MG TABLET PO (20:24)
[2024-02-20] MEDS: Montelukast Sodium 10 MG TABLET PO (20:24)
[2024-02-20] MEDS: traZODone HCL 50 MG TABLET PO (20:24)
[2024-02-20] MEDS: Enoxaparin Sodium 40 MG/0.4 ML SYRINGE SUBCUT (20:25)
[2024-02-21 04:00] VITALS: BP 133/66; PULSE 71; RESP 18; TEMP 36.3; O2SAT 97
[2024-02-21 07:34] VITALS: BP 123/53; PULSE 64; RESP 18; TEMP 36.3; O2SAT 95
[2024-02-21] MEDS: Fluticasone/Umeclidinium/Vilanterol 100/62.5/25 BLST.W.DEV 1 PUFF INHALE (07:39)
[2024-02-21 07:40] VITALS: PULSE 75; RESP 18; O2SAT 95
[2024-02-21] MEDS: Cholecalciferol (Vitamin D3) 25 MCG TABLET PO (08:23)
[2024-02-21] MEDS: Gabapentin 100 MG CAPSULE PO (08:23)
[2024-02-21] MEDS: Aspirin Enteric Coated 81 MG TABLET.DR PO (08:23)
[2024-02-21] MEDS: FLUoxetine HCl 20 MG CAPSULE PO (08:23)
[2024-02-21] MEDS: Acetaminophen 325 MG TABLET 650 MG PO ×2 (08:23→20:32)
[2024-02-21] MEDS: amLODIPine Besylate 5 MG TABLET PO (08:23)
--- NOTE | 2024-02-21 11:32 | HO.PM.IMPN ---
Subjective Subjective Date of Service: 02/21/24 Interval History: History obtained via pick up, complain of left knee pain requesting for pain medication otherwise offers no other complaints, no acute events overnight. Review of Systems Unable to obtain due to mental status. Physical Exam Vital Signs: Vital Signs: Last Vital Signs Temp 97.4 F 02/21/24 07:34 Pulse 75 02/21/24 07:40 Resp 18 02/21/24 07:40 BP 123/53 L 02/21/24 07:34 Pulse Ox 95 02/21/24 07:34 O2 Del Method Room Air 02/21/24 07:34 O2 Flow Rate 3 12/22/23 20:00 BMI result Body Mass Index 28.0 Const: Other: General: Awake ,alert, no acute distress No JVD Resp: CTA bilateral CVS: S1,S2,RRR GI: +BS, NT, no distention Skin: No rash Left knee swollen, no hyperemia, no warmth, good knee flexion, pain with left knee movement Neuro: motor grossly intact, oriented to self Psych: Objective Data Active Medications Acetaminophen (Acetaminophen 325 Mg Tablet) 650 mg PO Q6H PRN PRN Reason: Pain, Mild (Pain Scale 1-3), fever or headache Last Admin: 02/17/24 08:57 Dose: 650 mg Documented By: IFEANYI Acetaminophen (Acetaminophen 325 Mg Tablet) 650 mg PO BID [facility] Last Admin: 02/21/24 08:23 Dose: 650 mg Documented By: VANESA Albuterol Sulfate (Albuterol Sulfate 90 Mcg 8 Gm Inhaler) 2 puff INHALE RQ6H PRN PRN Reason: sob Last Admin: 02/13/24 05:31 Dose: 2 puff Documented By: NOÉ Amlodipine Besylate (Amlodipine Besylate 5 Mg Tablet) 5 mg PO DAILY [facility]; Protocol Last Admin: 02/21/24 08:23 Dose: 5 mg Documented By: VANESA Artificial Tears (Artificial Tears 15 Ml Drops) 2 drop EYE-BOTH Q4H PRN PRN Reason: Dry Eyes Last Admin: 12/21/23 03:08 Dose: 2 drop Documented By: YOMI Aspirin (Aspirin Enteric Coated 81 Mg Tablet.) 81 mg PO DAILY [facility] Last Admin: 02/21/24 08:23 Dose: 81 mg Documented By: VANESA Atorvastatin Calcium (Atorvastatin Calcium 20 Mg Tablet) 20 mg PO BEDTIME [facility] Last Admin: 02/20/24 20:24 Dose: 20 mg Documented By: ADAM Calcium Carbonate (Calcium Carbonate 750 Mg Tab.Chew) 750 mg PO Q4H PRN PRN Reason: Heartburn Capsaicin (Capsaicin 0.025% Cream 60 Gm Tube) 1 appl TOPICAL QID PRN; Protocol PRN Reason: Pain, Moderate(Pain Scale 4-6) Last Admin: 02/03/24 08:34 Dose: 1 appl Documented By: COOKIE Enoxaparin Sodium (Enoxaparin Sodium 40 Mg/0.4 Ml Syringe) 40 mg SUBCUT Q24H [facility] Last Admin: 02/20/24 20:25 Dose: 40 mg Documented By: ADAM Fluoxetine HCl (Fluoxetine Hcl 20 Mg Capsule) 20 mg PO DAILY [facility] Last Admin: 02/21/24 08:23 Dose: 20 mg Documented By: VANESA Fluticasone/Umeclidinium/Vilanterol (Fluticasone/Umeclidinium/Vilanterol 100/62.5/25 Blst.W.Dev) 1 puff INHALE RDAILY [facility] Last Admin: 02/21/24 07:39 Dose: 1 puff Documented By: KRISHNA Gabapentin (Gabapentin 100 Mg Capsule) 100 mg PO DAILY [facility] Last Admin: 02/21/24 08:23 Dose: 100 mg Documented By: VANESA Magnesium Hydroxide (Milk Of Magnesia 30 Ml Oral.Susp) 30 ml PO DAILY PRN PRN Reason: Constipation Last Admin: 12/08/23 08:25 Dose: 30 ml Documented By: AUDI Melatonin (Melatonin 3 Mg Tablet) 6 mg PO BEDTIME PRN PRN Reason: Insomnia Last Admin: 02/16/24 00:23 Dose: 6 mg Documented By: JAYDE Montelukast Sodium (Montelukast Sodium 10 Mg Tablet) 10 mg PO BEDTIME [facility] Last Admin: 02/20/24 20:24 Dose: 10 mg Documented By: ADAM Tramadol HCl (Tramadol Hcl 50 Mg Tablet) 25 mg PO Q6H PRN PRN Reason: Pain, Severe (Pain Scale 7-10) Last Admin: 02/20/24 15:00 Dose: 25 mg Documented By: WAGNER Trazodone HCl (Trazodone Hcl 50 Mg Tablet) 50 mg PO BEDTIME [facility] Last Admin: 02/20/24 20:24 Dose: 50 mg Documented By: ADAM Vitamin D (Cholecalciferol (Vitamin D3) 25 Mcg Tablet) 25 mcg PO DAILY [facility] Last Admin: 02/21/24 08:23 Dose: 25 mcg Documented By: STEPHANYAMER Labs 02/02/24 05:45 02/01/24 05:47 Assessment and Plan (1) Left knee pain: Status: Acute (2) Cognitive disorder: Status: Acute Plan 83M PMH copd, htn, hld, dementia unspecified, prostate ca, sent in from [facility] after inappropriately interaction with another female resident. Unspecified dementia, stable, needs placement Continue Prozac and trazodone, no inappropriate sexual behavior noted during hospitalization, daily out of bed to chair . left knee osteoarthritis continue as needed tramadol, Aspercreme , scheduled Tylenol twice daily, Esau wrap and as needed heat, no change in examination. 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 supervised eating . neuropathic pain--neurontin copd, stable no exacerbation, albuterol prn htn, amldoipine. Stop hctz d/t low sodium hypOnatremia- back to normal at 136, probably due to hctz, stopped, follow sodium as needed leukocytosis--resolved hld, statin dvt prophylaxis - lovenox dnr/dni reason for continued hospitalization:dispo planning Quality Stroke Does the patient have a stroke diagnosis?: No VTE Prior VTE?: No VTE Risk Level:: Medical - moderate - high VTE Device Contraindication: Treatment Not Indicated VTE Drug Contraindication: N/A - Med Ordered
--- NOTE | 2024-02-21 14:03 | MHC.CM.PN ---
Daughter presented w/ updated POA completed this year. Sent to [facility] along w/ [facility] per request. No beds available at this time. Will continue to follow.
[2024-02-21 15:11] VITALS: BP 144/67; PULSE 53; RESP 16; TEMP 36.3; O2SAT 97
[2024-02-21 19:33] VITALS: BP 126/64; PULSE 58; RESP 16; TEMP 36.7; O2SAT 96
[2024-02-21] MEDS: Montelukast Sodium 10 MG TABLET PO (20:33)
[2024-02-21] MEDS: Melatonin 3 MG TABLET 6 MG PO (20:33)
[2024-02-21] MEDS: Atorvastatin Calcium 20 MG TABLET PO (20:33)
[2024-02-21] MEDS: traZODone HCL 50 MG TABLET PO (20:34)
[2024-02-21] MEDS: Enoxaparin Sodium 40 MG/0.4 ML SYRINGE SUBCUT (20:34)
[2024-02-22 04:48] VITALS: BP 130/62; PULSE 62; RESP 18; TEMP 36.4; O2SAT 95
[2024-02-22 07:36] VITALS: BP 109/52; PULSE 58; RESP 16; TEMP 36.7; O2SAT 98
[2024-02-22] MEDS: Fluticasone/Umeclidinium/Vilanterol 100/62.5/25 BLST.W.DEV 1 PUFF INHALE (08:03)
[2024-02-22 08:07] VITALS: PULSE 58; RESP 16; O2SAT 94
[2024-02-22] MEDS: FLUoxetine HCl 20 MG CAPSULE PO (08:19)
[2024-02-22] MEDS: Cholecalciferol (Vitamin D3) 25 MCG TABLET PO (08:19)
[2024-02-22] MEDS: Aspirin Enteric Coated 81 MG TABLET.DR PO (08:19)
[2024-02-22] MEDS: amLODIPine Besylate 5 MG TABLET PO (08:19)
[2024-02-22] MEDS: Gabapentin 100 MG CAPSULE PO (08:19)
[2024-02-22] MEDS: Acetaminophen 325 MG TABLET 650 MG PO ×2 (08:19→20:48)
--- NOTE | 2024-02-22 11:13 | MHC.CM.PN ---
Patient continues to await LTC placement. [facility] communicating w/ daughter for financial disclosure. No beds available at this time. CM will continue to follow.
--- NOTE | 2024-02-22 11:22 | HO.PM.IMPN ---
Subjective Subjective Date of Service: 02/22/24 Interval History: Being followed for placement No acute complaints today No acute overnight events. Review of Systems Unable to obtain due to dementia Physical Exam Vital Signs: Vital Signs: Last Vital Signs Temp 98.0 F 02/22/24 07:36 Pulse 58 02/22/24 08:07 Resp 16 02/22/24 08:07 BP 109/52 L 02/22/24 07:36 Pulse Ox 98 02/22/24 07:36 O2 Del Method Room Air 02/22/24 07:36 O2 Flow Rate 3 12/22/23 20:00 BMI result Body Mass Index 28.0 Const: Other: General: Awake ,alert, no acute distress No JVD Resp: CTA bilateral CVS: S1,S2,RRR GI: +BS, NT, no distention Skin: No rash Left knee swollen, no hyperemia, no warmth, good knee flexion, pain with left knee movement Neuro: motor grossly intact, oriented to self Psych: Poor insight Objective Data Active Medications Acetaminophen (Acetaminophen 325 Mg Tablet) 650 mg PO Q6H PRN PRN Reason: Pain, Mild (Pain Scale 1-3), fever or headache Last Admin: 02/17/24 08:57 Dose: 650 mg Documented By: IFEANYI Acetaminophen (Acetaminophen 325 Mg Tablet) 650 mg PO BID [facility] Last Admin: 02/22/24 08:19 Dose: 650 mg Documented By: SAMMIE Albuterol Sulfate (Albuterol Sulfate 90 Mcg 8 Gm Inhaler) 2 puff INHALE RQ6H PRN PRN Reason: sob Last Admin: 02/13/24 05:31 Dose: 2 puff Documented By: NOÉ Amlodipine Besylate (Amlodipine Besylate 5 Mg Tablet) 5 mg PO DAILY [facility]; Protocol Last Admin: 02/22/24 08:19 Dose: 5 mg Documented By: SAMMIE Artificial Tears (Artificial Tears 15 Ml Drops) 2 drop EYE-BOTH Q4H PRN PRN Reason: Dry Eyes Last Admin: 12/21/23 03:08 Dose: 2 drop Documented By: YOMI Aspirin (Aspirin Enteric Coated 81 Mg Tablet.) 81 mg PO DAILY [facility] Last Admin: 02/22/24 08:19 Dose: 81 mg Documented By: SAMMIE Calcium Carbonate (Calcium Carbonate 750 Mg Tab.Chew) 750 mg PO Q4H PRN PRN Reason: Heartburn Capsaicin (Capsaicin 0.025% Cream 60 Gm Tube) 1 appl TOPICAL QID PRN; Protocol PRN Reason: Pain, Moderate(Pain Scale 4-6) Last Admin: 02/03/24 08:34 Dose: 1 appl Documented By: COOKIE Fluoxetine HCl (Fluoxetine Hcl 20 Mg Capsule) 20 mg PO DAILY [facility] Last Admin: 02/22/24 08:19 Dose: 20 mg Documented By: SMAMIE Fluticasone/Umeclidinium/Vilanterol (Fluticasone/Umeclidinium/Vilanterol 100/62.5/25 Blst.W.Dev) 1 puff INHALE RDAILY [facility] Last Admin: 02/22/24 08:03 Dose: 1 puff Documented By: REJI Gabapentin (Gabapentin 100 Mg Capsule) 100 mg PO DAILY [facility] Last Admin: 02/22/24 08:19 Dose: 100 mg Documented By: SAMMIE Magnesium Hydroxide (Milk Of Magnesia 30 Ml Oral.Susp) 30 ml PO DAILY PRN PRN Reason: Constipation Last Admin: 12/08/23 08:25 Dose: 30 ml Documented By: AUDI Melatonin (Melatonin 3 Mg Tablet) 6 mg PO BEDTIME PRN PRN Reason: Insomnia Last Admin: 02/21/24 20:33 Dose: 6 mg Documented By: SUSIE Tramadol HCl (Tramadol Hcl 50 Mg Tablet) 25 mg PO Q6H PRN PRN Reason: Pain, Severe (Pain Scale 7-10) Last Admin: 02/20/24 15:00 Dose: 25 mg Documented By: WAGNER Trazodone HCl (Trazodone Hcl 50 Mg Tablet) 50 mg PO BEDTIME [facility] Last Admin: 02/21/24 20:34 Dose: 50 mg Documented By: SUSIE Vitamin D (Cholecalciferol (Vitamin D3) 25 Mcg Tablet) 25 mcg PO DAILY [facility] Last Admin: 02/22/24 08:19 Dose: 25 mcg Documented By: SAMMIE Labs 02/02/24 05:45 02/01/24 05:47 Assessment and Plan (1) Left knee pain: Status: Acute Plan 83M PMH copd, htn, hld, dementia unspecified, prostate ca, sent in [facility] [place] [facility] after inappropriately interaction with another female resident. Unspecified dementia, stable, needs placement Continue Prozac and trazodone, no inappropriate sexual behavior noted during hospitalization, daily out of bed to chair . left knee osteoarthritis continue as needed tramadol, Aspercreme , scheduled Tylenol twice daily, Esau wrap and as needed heat, no change in examination. 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 supervised eating . neuropathic pain--neurontin copd, stable no exacerbation, albuterol prn htn, amldoipine. Stop hctz d/t low sodium hypOnatremia- back to normal at 136, probably due to hctz, stopped, follow sodium as needed leukocytosis--resolved hld, statin dvt prophylaxis - lovenox dnr/dni reason for continued hospitalization:safe dispo planning, waiting for LTC placement, [facility] communicating with daughter for financial disclosure, no beds available at this time. Quality Stroke Does the patient have a stroke diagnosis?: No VTE Prior VTE?: No VTE Risk Level:: Medical - moderate - high VTE Device Contraindication: Treatment Not Indicated VTE Drug Contraindication: N/A - Med Ordered
[2024-02-22 15:10] VITALS: BP 125/60; PULSE 57; RESP 16; TEMP 36.3; O2SAT 98
[2024-02-22 19:04] VITALS: BP 135/65; PULSE 57; RESP 16; TEMP 36.3; O2SAT 97
[2024-02-22] MEDS: traZODone HCL 50 MG TABLET PO (20:47)
[2024-02-22] MEDS: Melatonin 3 MG TABLET 6 MG PO (20:47)
[2024-02-23 03:12] VITALS: BP 113/56; PULSE 68; RESP 18; TEMP 36.8; O2SAT 97
[2024-02-23 07:34] VITALS: BP 131/65; PULSE 62; RESP 18; TEMP 36.4; O2SAT 98
[2024-02-23] MEDS: Fluticasone/Umeclidinium/Vilanterol 100/62.5/25 BLST.W.DEV 1 PUFF INHALE (07:41)
[2024-02-23 07:42] VITALS: PULSE 62; RESP 18; O2SAT 94
[2024-02-23] MEDS: Aspirin Enteric Coated 81 MG TABLET.DR PO (08:36)
[2024-02-23] MEDS: amLODIPine Besylate 5 MG TABLET PO (08:36)
[2024-02-23] MEDS: Acetaminophen 325 MG TABLET 650 MG PO ×2 (08:36→20:46)
[2024-02-23] MEDS: Gabapentin 100 MG CAPSULE PO (08:36)
[2024-02-23] MEDS: FLUoxetine HCl 20 MG CAPSULE PO (08:36)
[2024-02-23] MEDS: Cholecalciferol (Vitamin D3) 25 MCG TABLET PO (08:36)
--- NOTE | 2024-02-23 14:34 | P.PNIM_ITS ---
Subjective Subjective Date of Service: 02/23/24 Interval History: Seen and examined this morning Follow-up for placement no specific complaints at this time Review of Systems Review of Systems: Yes all other systems are reviewed and are negative Cardiovascular Cardiovascular: Denies chest pain and Denies dyspnea Respiratory Respiratory: Denies dyspnea Physical Exam 2 Vital Signs: Vital Signs: Last Vital Signs Temp 97.6 F 02/23/24 07:34 Pulse 62 02/23/24 07:42 Resp 18 02/23/24 07:42 BP 131/65 02/23/24 07:34 Pulse Ox 98 02/23/24 07:34 O2 Del Method Room Air 02/23/24 07:34 O2 Flow Rate 3 12/22/23 20:00 BMI result Body Mass Index 28.0 Const: General: alert and awake Nutritional Appearance: average body habitus Resp: Effort & Inspection: normal respiratory effort, able to speak in complete sentences, no respiratory distress and no use of accessory muscles Cardio: Rate: regular rate Neuro: General: moves all extremities and CN's II-XI intact bilaterally Extrem: General: Yes no pedal edema Objective Data Active Medications Acetaminophen (Acetaminophen 325 Mg Tablet) 650 mg PO Q6H PRN PRN Reason: Pain, Mild (Pain Scale 1-3), fever or headache Last Admin: 02/17/24 08:57 Dose: 650 mg Documented By: IFEANYI Acetaminophen (Acetaminophen 325 Mg Tablet) 650 mg PO BID [facility] Last Admin: 02/23/24 08:36 Dose: 650 mg Documented By: DARRYL Albuterol Sulfate (Albuterol Sulfate 90 Mcg 8 Gm Inhaler) 2 puff INHALE RQ6H PRN PRN Reason: sob Last Admin: 02/13/24 05:31 Dose: 2 puff Documented By: NOÉ Amlodipine Besylate (Amlodipine Besylate 5 Mg Tablet) 5 mg PO DAILY [facility]; Protocol Last Admin: 02/23/24 08:36 Dose: 5 mg Documented By: DARRYL Artificial Tears (Artificial Tears 15 Ml Drops) 2 drop EYE-BOTH Q4H PRN PRN Reason: Dry Eyes Last Admin: 12/21/23 03:08 Dose: 2 drop Documented By: YOMI Aspirin (Aspirin Enteric Coated 81 Mg Tablet.) 81 mg PO DAILY [facility] Last Admin: 02/23/24 08:36 Dose: 81 mg Documented By: DARRYL Calcium Carbonate (Calcium Carbonate 750 Mg Tab.Chew) 750 mg PO Q4H PRN PRN Reason: Heartburn Capsaicin (Capsaicin 0.025% Cream 60 Gm Tube) 1 appl TOPICAL QID PRN; Protocol PRN Reason: Pain, Moderate(Pain Scale 4-6) Last Admin: 02/03/24 08:34 Dose: 1 appl Documented By: COOKIE Fluoxetine HCl (Fluoxetine Hcl 20 Mg Capsule) 20 mg PO DAILY [facility] Last Admin: 02/23/24 08:36 Dose: 20 mg Documented By: DARRYL Fluticasone/Umeclidinium/Vilanterol (Fluticasone/Umeclidinium/Vilanterol 100/62.5/25 Blst.W.Dev) 1 puff INHALE RDAILY [facility] Last Admin: 02/23/24 07:41 Dose: 1 puff Documented By: REJI Gabapentin (Gabapentin 100 Mg Capsule) 100 mg PO DAILY [facility] Last Admin: 02/23/24 08:36 Dose: 100 mg Documented By: DARRYL Magnesium Hydroxide (Milk Of Magnesia 30 Ml Oral.Susp) 30 ml PO DAILY PRN PRN Reason: Constipation Last Admin: 12/08/23 08:25 Dose: 30 ml Documented By: AUDI Melatonin (Melatonin 3 Mg Tablet) 6 mg PO BEDTIME PRN PRN Reason: Insomnia Last Admin: 02/22/24 20:47 Dose: 6 mg Documented By: VIRGINIE Trazodone HCl (Trazodone Hcl 50 Mg Tablet) 50 mg PO BEDTIME [facility] Last Admin: 02/22/24 20:47 Dose: 50 mg Documented By: VIRGINIE Vitamin D (Cholecalciferol (Vitamin D3) 25 Mcg Tablet) 25 mcg PO DAILY [facility] Last Admin: 02/23/24 08:36 Dose: 25 mcg Documented By: DARRYL Labs 02/02/24 05:45 02/01/24 05:47 Assessment and Plan (1) Major neurocognitive disorder: Status: Acute Plan 83M PMH copd, htn, hld, dementia unspecified, prostate ca, [facility] interaction with another female resident. Unspecified dementia, stable, needs placement Continue Prozac and trazodone, no inappropriate sexual behavior noted during hospitalization, daily out of bed to chair . left knee osteoarthritis continue as needed tramadol, Aspercreme , scheduled Tylenol twice daily, Esau wrap and as needed heat, no change in examination. 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 supervised eating . neuropathic pain--neurontin copd, stable no exacerbation, albuterol prn htn amldoipine. Stop hctz d/t low sodium hypOnatremia- back to normal at 136, probably due to hctz, stopped, follow sodium as needed leukocytosis--resolved hld, statin dvt prophylaxis - lovenox dnr/dni reason for continued hospitalization:safe dispo planning, waiting for LTC placement, [facility] communicating with daughter for financial disclosure, no beds available at this time. Quality Stroke Does the patient have a stroke diagnosis?: No VTE Prior VTE?: No VTE Risk Level:: Medical - moderate - high VTE Device Contraindication: Treatment Not Indicated VTE Drug Contraindication: N/A - Med Ordered
[2024-02-23] MEDS: Enoxaparin Sodium 40 MG/0.4 ML SYRINGE SUBCUT (14:57)
[2024-02-23 15:26] VITALS: BP 130/60; PULSE 64; RESP 20; TEMP 36.2; O2SAT 98
[2024-02-23 20:00] VITALS: BP 120/60; PULSE 58; RESP 20; TEMP 36.7; O2SAT 97
[2024-02-23] MEDS: traZODone HCL 50 MG TABLET PO (20:46)
[2024-02-23] MEDS: Melatonin 3 MG TABLET 6 MG PO (20:47)
[2024-02-24 03:47] VITALS: BP 136/64; PULSE 63; RESP 16; TEMP 36.8; O2SAT 98
[2024-02-24 07:39] VITALS: BP 124/59; PULSE 60; RESP 16; TEMP 36.2; O2SAT 96
[2024-02-24] MEDS: Fluticasone/Umeclidinium/Vilanterol 100/62.5/25 BLST.W.DEV 1 PUFF INHALE (07:39)
[2024-02-24 07:40] VITALS: PULSE 59; RESP 18; O2SAT 97
[2024-02-24] MEDS: amLODIPine Besylate 5 MG TABLET PO (08:46)
[2024-02-24] MEDS: FLUoxetine HCl 20 MG CAPSULE PO (08:46)
[2024-02-24] MEDS: Gabapentin 100 MG CAPSULE PO (08:46)
[2024-02-24] MEDS: Cholecalciferol (Vitamin D3) 25 MCG TABLET PO (08:46)
[2024-02-24] MEDS: Aspirin Enteric Coated 81 MG TABLET.DR PO (08:46)
[2024-02-24] MEDS: Acetaminophen 325 MG TABLET 650 MG PO ×2 (08:47→19:55)
--- NOTE | 2024-02-24 12:14 | MHC.CM.PN ---
Patient continues to await LTC placement. [facility] working w/ daughter for Financial Disclosure. CM spoke w/ daughter yesterday who stated she had not received, liaison to resend. No bed available at this time.
[2024-02-24] MEDS: Enoxaparin Sodium 40 MG/0.4 ML SYRINGE SUBCUT (13:30)
[2024-02-24 13:42] LABS: Hematocrit 37.8 % (42.0-52.0); Hemoglobin 13.3 g/dl (14.0-18.0); Mean Corpuscular HGB Conc 35.2 g/dl (31.0-36.0); Mean Corpuscular Hemoglobin 30.5 pg (27.0-33.0); Mean Corpuscular Volume 86.7 fL (80.0-98.0); Mean Platelet Volume 9.5 fL (9.4-12.4); Platelet Count 323 X10*3/uL (160-400); Red Blood Count 4.36 X10*6/uL (4.60-5.80); Red Cell Distribution Width 13.3 % (11.0-16.0); White Blood Count 9.3 X10*3/uL (4.8-10.8)
[2024-02-24 14:03] LABS: Anion Gap 10 (12-20); Blood Urea Nitrogen 10 mg/dL (9-16); Calcium 9.2 mg/dL (8.4-10.2); Carbon Dioxide 28 mmol/L (22-29); Chloride 100 mmol/L (96-108); Creatinine Clr Calc Pharmacy 68.8; Estimated Glomerular Filt Rate > 60; Glucose Random 122 mg/dL (60-115); Potassium 3.8 mmol/L (3.3-5.1); Sodium 134 mmol/L (135-145)
[2024-02-24 15:19] VITALS: BP 116/55; PULSE 61; RESP 20; TEMP 36.6; O2SAT 97
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
[2024-02-24 19:27] VITALS: BP 133/65; PULSE 68; RESP 20; TEMP 37.1; O2SAT 97
[2024-02-24] MEDS: traZODone HCL 50 MG TABLET PO (19:56)
[2024-02-24] MEDS: Melatonin 3 MG TABLET 6 MG PO (19:56)
[2024-02-25] VITALS (7 sets, daily range): BP systolic 102–132; BP diastolic 52–60; PULSE 60–69; RESP 14–20; TEMP 36.4–37; O2SAT 96–98
[2024-02-25] MEDS: Fluticasone/Umeclidinium/Vilanterol 100/62.5/25 BLST.W.DEV 1 PUFF INHALE (07:41)
[2024-02-25] MEDS: Gabapentin 100 MG CAPSULE PO (09:18)
[2024-02-25] MEDS: amLODIPine Besylate 5 MG TABLET PO (09:18)
[2024-02-25] MEDS: Acetaminophen 325 MG TABLET 650 MG PO ×2 (09:19→20:26)
[2024-02-25] MEDS: FLUoxetine HCl 20 MG CAPSULE PO (09:19)
[2024-02-25] MEDS: Aspirin Enteric Coated 81 MG TABLET.DR PO (09:19)
[2024-02-25] MEDS: Cholecalciferol (Vitamin D3) 25 MCG TABLET PO (09:19)
[2024-02-25] MEDS: Enoxaparin Sodium 40 MG/0.4 ML SYRINGE SUBCUT (14:19)
[2024-02-25] MEDS: Capsaicin 0.025% Cream 60 GM TUBE 1 APPL TOPICAL (14:21)
[2024-02-25] MEDS: Albuterol Sulfate 90 MCG 8 GM INHALER 2 PUFF INHALE (14:23)
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
[2024-02-25] MEDS: traZODone HCL 50 MG TABLET PO (20:26)
[2024-02-26 03:27] VITALS: BP 130/60; PULSE 59; RESP 18; TEMP 36.4; O2SAT 97
[2024-02-26 07:35] VITALS: BP 120/58; PULSE 61; RESP 18; TEMP 36.7; O2SAT 99
[2024-02-26] MEDS: Aspirin Enteric Coated 81 MG TABLET.DR PO (08:23)
[2024-02-26] MEDS: FLUoxetine HCl 20 MG CAPSULE PO (08:23)
[2024-02-26] MEDS: Acetaminophen 325 MG TABLET 650 MG PO ×2 (08:24→20:39)
[2024-02-26] MEDS: Gabapentin 100 MG CAPSULE PO (08:24)
[2024-02-26] MEDS: Atorvastatin Calcium 20 MG TABLET PO (08:24)
[2024-02-26] MEDS: Cholecalciferol (Vitamin D3) 25 MCG TABLET PO (08:24)
[2024-02-26] MEDS: amLODIPine Besylate 5 MG TABLET PO (08:24)
[2024-02-26] MEDS: Fluticasone/Umeclidinium/Vilanterol 100/62.5/25 BLST.W.DEV 1 PUFF INHALE (09:41)
[2024-02-26 09:44] VITALS: PULSE 56; RESP 18; O2SAT 96
[2024-02-26] MEDS: Enoxaparin Sodium 40 MG/0.4 ML SYRINGE SUBCUT (15:10)
[2024-02-26] MEDS: Capsaicin 0.025% Cream 60 GM TUBE 1 APPL TOPICAL ×2 (15:10→20:46)
[2024-02-26 15:15] VITALS: BP 142/63; PULSE 61; RESP 16; TEMP 36.9; O2SAT 97
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
[2024-02-26 20:00] VITALS: BP 117/59; PULSE 66; RESP 18; TEMP 36.2; O2SAT 96
[2024-02-26] MEDS: Melatonin 3 MG TABLET 6 MG PO (20:39)
[2024-02-26] MEDS: traZODone HCL 50 MG TABLET PO (20:40)
[2024-02-27 03:44] VITALS: BP 116/75; PULSE 60; RESP 16; TEMP 36.1; O2SAT 98
[2024-02-27 07:24] VITALS: BP 142/65; PULSE 74; RESP 18; TEMP 36.7; O2SAT 97
[2024-02-27] MEDS: Fluticasone/Umeclidinium/Vilanterol 100/62.5/25 BLST.W.DEV 1 PUFF INHALE (07:45)
[2024-02-27 07:46] VITALS: PULSE 74; RESP 18; O2SAT 95
[2024-02-27 08:45] VITALS: BP 142/65
[2024-02-27] MEDS: FLUoxetine HCl 20 MG CAPSULE PO (08:45)
[2024-02-27] MEDS: Atorvastatin Calcium 20 MG TABLET PO (08:45)
[2024-02-27] MEDS: Gabapentin 100 MG CAPSULE PO (08:45)
[2024-02-27] MEDS: Aspirin Enteric Coated 81 MG TABLET.DR PO (08:45)
[2024-02-27] MEDS: Cholecalciferol (Vitamin D3) 25 MCG TABLET PO (08:45)
[2024-02-27] MEDS: amLODIPine Besylate 5 MG TABLET PO (08:45)
[2024-02-27] MEDS: Acetaminophen 325 MG TABLET 650 MG PO ×2 (08:51→20:40)
--- NOTE | 2024-02-27 11:12 | MHC.CM.PN ---
Patient continues to await LTC placement. Per [facility] liaison, daughter has not returned financial disclosure. CM spoke w/ daughter, who now understands there is a sense of urgency. Will plan to complete later today. CM will continue to follow.
--- NOTE | 2024-02-27 11:27 | P.PNIM_ITS ---
Subjective Subjective Date of Service: 02/27/24 Interval History: seen and examined this morning follow up for placement no overnight events no specific complaints today Review of Systems Review of Systems: Yes all other systems are reviewed and are negative Constitutional Constitutional: Denies fever(s) Cardiovascular Cardiovascular: Denies chest pain Neurologic Neurologic: Reports confusion Psychiatric Psychiatric: Reports confusion Physical Exam 2 Vital Signs: Vital Signs: Last Vital Signs Temp 98.0 F 02/27/24 07:24 Pulse 74 02/27/24 07:46 Resp 18 02/27/24 07:46 BP 142/65 H 02/27/24 08:45 Pulse Ox 97 02/27/24 07:24 O2 Del Method Room Air 02/27/24 03:44 O2 Flow Rate 3 12/22/23 20:00 BMI result Body Mass Index 28.0 alert and confused Const: General: confusion Orientation/consciousness: confusion Neuro: General: confusion Objective Data Active Medications Acetaminophen (Acetaminophen 325 Mg Tablet) 650 mg PO Q6H PRN PRN Reason: Pain, Mild (Pain Scale 1-3), fever or headache Last Admin: 02/17/24 08:57 Dose: 650 mg Acetaminophen (Acetaminophen 325 Mg Tablet) 650 mg PO BID [facility] Last Admin: 02/27/24 08:51 Dose: 650 mg Documented By: ASMITA Albuterol Sulfate (Albuterol Sulfate 90 Mcg 8 Gm Inhaler) 2 puff INHALE RQ6H PRN PRN Reason: sob Last Admin: 02/25/24 14:23 Dose: 2 puff Documented By: KAYLEIGH Amlodipine Besylate (Amlodipine Besylate 5 Mg Tablet) 5 mg PO DAILY [facility]; Protocol Last Admin: 02/27/24 08:45 Dose: 5 mg Documented By: ASMITA Artificial Tears (Artificial Tears 15 Ml Drops) 2 drop EYE-BOTH Q4H PRN PRN Reason: Dry Eyes Last Admin: 12/21/23 03:08 Dose: 2 drop Documented By: YOMI Aspirin (Aspirin Enteric Coated 81 Mg Tablet.) 81 mg PO DAILY [facility] Last Admin: 02/27/24 08:45 Dose: 81 mg Documented By: ASMITA Atorvastatin Calcium (Atorvastatin Calcium 20 Mg Tablet) 20 mg PO DAILY [facility] Last Admin: 02/27/24 08:45 Dose: 20 mg Documented By: ASMITA Calcium Carbonate (Calcium Carbonate 750 Mg Tab.Chew) 750 mg PO Q4H PRN PRN Reason: Heartburn Capsaicin (Capsaicin 0.025% Cream 60 Gm Tube) 1 appl TOPICAL QID PRN; Protocol PRN Reason: Pain, Moderate(Pain Scale 4-6) Last Admin: 02/26/24 20:46 Dose: 1 appl Documented By: VIRGINIE Enoxaparin Sodium (Enoxaparin Sodium 40 Mg/0.4 Ml Syringe) 40 mg SUBCUT Q24H [facility] Last Admin: 02/26/24 15:10 Dose: 40 mg Documented By: VANESA Fluoxetine HCl (Fluoxetine Hcl 20 Mg Capsule) 20 mg PO DAILY [facility] Last Admin: 02/27/24 08:45 Dose: 20 mg Documented By: ASMITA Fluticasone/Umeclidinium/Vilanterol (Fluticasone/Umeclidinium/Vilanterol 100/62.5/25 Blst.W.Dev) 1 puff INHALE RDAILY [facility] Last Admin: 02/27/24 07:45 Dose: 1 puff Documented By: KAYLEIGH Gabapentin (Gabapentin 100 Mg Capsule) 100 mg PO DAILY [facility] Last Admin: 02/27/24 08:45 Dose: 100 mg Documented By: ASMITA Magnesium Hydroxide (Milk Of Magnesia 30 Ml Oral.Susp) 30 ml PO DAILY PRN PRN Reason: Constipation Last Admin: 12/08/23 08:25 Dose: 30 ml Documented By: AUDI Melatonin (Melatonin 3 Mg Tablet) 6 mg PO BEDTIME PRN PRN Reason: Insomnia Last Admin: 02/26/24 20:39 Dose: 6 mg Documented By: VIRGINIE Trazodone HCl (Trazodone Hcl 50 Mg Tablet) 50 mg PO BEDTIME [facility] Last Admin: 02/26/24 20:40 Dose: 50 mg Documented By: VIRGINIE Vitamin D (Cholecalciferol (Vitamin D3) 25 Mcg Tablet) 25 mcg PO DAILY [facility] Last Admin: 02/27/24 08:45 Dose: 25 mcg Documented By: ASMITA Labs 02/24/24 13:17 02/24/24 13:17 Assessment and Plan (1) Major neurocognitive disorder: Status: Acute Plan 83M PMH copd, htn, hld, dementia unspecified, prostate ca, sent in from detention after inappropriate interaction with another female resident. Unspecified dementia, stable, needs placement Continue Prozac and trazodone, no inappropriate sexual behavior noted during hospitalization, daily out of bed to chair . left knee osteoarthritis continue as needed tramadol, Aspercreme scheduled Tylenol twice daily, Esau wrap and as needed heat, no change in examination. 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 supervised eating . neuropathic pain neurontin copd stable no exacerbation albuterol prn htn amldoipine. Stop hctz d/t low sodium mild hyponatremia 134 leukocytosis--resolved hld, statin dvt prophylaxis - lovenox Attending dnr/dni reason for continued hospitalization:safe dispo planning, waiting for LTC placement, [facility] communicating with daughter for financial disclosure, no beds available at this time. Quality Stroke Does the patient have a stroke diagnosis?: No VTE Prior VTE?: No VTE Risk Level:: Medical - moderate - high VTE Device Contraindication: Treatment Not Indicated VTE Drug Contraindication: N/A - Med Ordered
[2024-02-27 14:53] VITALS: BP 136/63; PULSE 56; RESP 18; TEMP 36.6; O2SAT 97
[2024-02-27] MEDS: Enoxaparin Sodium 40 MG/0.4 ML SYRINGE SUBCUT (15:12)
[2024-02-27 19:33] VITALS: BP 137/63; PULSE 73; RESP 18; TEMP 36.2; O2SAT 96
[2024-02-27] MEDS: Melatonin 3 MG TABLET 6 MG PO (20:39)
[2024-02-27] MEDS: traZODone HCL 50 MG TABLET PO (20:39)
[2024-02-28 03:44] VITALS: BP 147/66; PULSE 62; RESP 18; TEMP 36.3; O2SAT 97
[2024-02-28 07:37] VITALS: BP 113/52; PULSE 64; RESP 16; TEMP 36.1; O2SAT 95
[2024-02-28 08:57] VITALS: PULSE 50; RESP 16; O2SAT 98
[2024-02-28] MEDS: Fluticasone/Umeclidinium/Vilanterol 100/62.5/25 BLST.W.DEV 1 PUFF INHALE (08:57)
[2024-02-28] MEDS: Cholecalciferol (Vitamin D3) 25 MCG TABLET PO (09:03)
[2024-02-28] MEDS: FLUoxetine HCl 20 MG CAPSULE PO (09:03)
[2024-02-28] MEDS: Aspirin Enteric Coated 81 MG TABLET.DR PO (09:03)
[2024-02-28] MEDS: Atorvastatin Calcium 20 MG TABLET PO (09:03)
[2024-02-28] MEDS: Gabapentin 100 MG CAPSULE PO (09:03)
[2024-02-28] MEDS: Acetaminophen 325 MG TABLET 650 MG PO ×2 (09:03→20:05)
[2024-02-28] MEDS: amLODIPine Besylate 5 MG TABLET PO (09:03)
--- NOTE | 2024-02-28 10:42 | HO.PM.IMPN ---
Subjective Subjective Date of Service: 02/28/24 Interval History: seen and examined this morning follow up for placement no overnight events no specific complaints today Review of Systems Review of Systems: Yes all other systems are reviewed and are negative Constitutional Constitutional: Denies fever(s) Cardiovascular Cardiovascular: Denies chest pain Neurologic Neurologic: Reports confusion Psychiatric Psychiatric: Reports confusion Physical Exam Vital Signs: Vital Signs: Last Vital Signs Temp 97.0 F 02/28/24 07:37 Pulse 50 02/28/24 08:57 Resp 16 02/28/24 08:57 BP 113/52 L 02/28/24 07:37 Pulse Ox 95 02/28/24 07:37 O2 Del Method Room Air 02/28/24 07:37 O2 Flow Rate 3 12/22/23 20:00 BMI result Body Mass Index 28.0 Appearing in no acute distress Const: General: confusion Orientation/consciousness: confusion Neuro: General: confusion Objective Data Active Medications Acetaminophen (Acetaminophen 325 Mg Tablet) 650 mg PO Q6H PRN PRN Reason: Pain, Mild (Pain Scale 1-3), fever or headache Last Admin: 02/17/24 08:57 Dose: 650 mg Acetaminophen (Acetaminophen 325 Mg Tablet) 650 mg PO BID [facility] Last Admin: 02/28/24 09:03 Dose: 650 mg Documented By: CAMILLA Albuterol Sulfate (Albuterol Sulfate 90 Mcg 8 Gm Inhaler) 2 puff INHALE RQ6H PRN PRN Reason: sob Last Admin: 02/25/24 14:23 Dose: 2 puff Documented By: KAYLEIGH Amlodipine Besylate (Amlodipine Besylate 5 Mg Tablet) 5 mg PO DAILY [facility]; Protocol Last Admin: 02/28/24 09:03 Dose: 5 mg Documented By: CAMILLA Artificial Tears (Artificial Tears 15 Ml Drops) 2 drop EYE-BOTH Q4H PRN PRN Reason: Dry Eyes Last Admin: 12/21/23 03:08 Dose: 2 drop Documented By: YOMI Aspirin (Aspirin Enteric Coated 81 Mg Tablet.) 81 mg PO DAILY [facility] Last Admin: 02/28/24 09:03 Dose: 81 mg Documented By: CAMILLA Atorvastatin Calcium (Atorvastatin Calcium 20 Mg Tablet) 20 mg PO DAILY [facility] Last Admin: 02/28/24 09:03 Dose: 20 mg Documented By: CAMILLA Calcium Carbonate (Calcium Carbonate 750 Mg Tab.Chew) 750 mg PO Q4H PRN PRN Reason: Heartburn Capsaicin (Capsaicin 0.025% Cream 60 Gm Tube) 1 appl TOPICAL QID PRN; Protocol PRN Reason: Pain, Moderate(Pain Scale 4-6) Last Admin: 02/26/24 20:46 Dose: 1 appl Documented By: VIRGINIE Enoxaparin Sodium (Enoxaparin Sodium 40 Mg/0.4 Ml Syringe) 40 mg SUBCUT Q24H [facility] Last Admin: 02/27/24 15:12 Dose: 40 mg Documented By: CAMILLA Fluoxetine HCl (Fluoxetine Hcl 20 Mg Capsule) 20 mg PO DAILY [facility] Last Admin: 02/28/24 09:03 Dose: 20 mg Documented By: CAMILLA Fluticasone/Umeclidinium/Vilanterol (Fluticasone/Umeclidinium/Vilanterol 100/62.5/25 Blst.W.Dev) 1 puff INHALE RDAILY [facility] Last Admin: 02/28/24 08:57 Dose: 1 puff Documented By: KRISHNA Gabapentin (Gabapentin 100 Mg Capsule) 100 mg PO DAILY [facility] Last Admin: 02/28/24 09:03 Dose: 100 mg Documented By: CAMILLA Magnesium Hydroxide (Milk Of Magnesia 30 Ml Oral.Susp) 30 ml PO DAILY PRN PRN Reason: Constipation Last Admin: 12/08/23 08:25 Dose: 30 ml Documented By: AUDI Melatonin (Melatonin 3 Mg Tablet) 6 mg PO BEDTIME PRN PRN Reason: Insomnia Last Admin: 02/27/24 20:39 Dose: 6 mg Documented By: VIRGINIE Trazodone HCl (Trazodone Hcl 50 Mg Tablet) 50 mg PO BEDTIME [facility] Last Admin: 02/27/24 20:39 Dose: 50 mg Documented By: VIRGINEI Vitamin D (Cholecalciferol (Vitamin D3) 25 Mcg Tablet) 25 mcg PO DAILY [facility] Last Admin: 02/28/24 09:03 Dose: 25 mcg Documented By: CAMILLA Labs 02/24/24 13:17 02/24/24 13:17 Assessment and Plan (1) Major neurocognitive disorder: Status: Acute Plan 83M PMH copd, htn, hld, dementia unspecified, prostate ca, sent in from shelter after inappropriate interaction with another female resident. Unspecified dementia, stable, needs placement Continue Prozac and trazodone, no inappropriate sexual behavior noted during hospitalization, daily out of bed to chair . left knee osteoarthritis continue as needed tramadol, Aspercreme scheduled Tylenol twice daily, Esau wrap and as needed heat, no change in examination. 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 supervised eating . neuropathic pain neurontin copd stable no exacerbation albuterol prn htn amldoipine. Stop hctz d/t low sodium mild hyponatremia 134 leukocytosis--resolved hld, statin dvt prophylaxis - lovenox Attending dnr/dni reason for continued hospitalization:safe dispo planning, waiting for LTC placement, [facility] communicating with daughter for financial disclosure, no beds available at this time. Quality Stroke Does the patient have a stroke diagnosis?: No VTE Prior VTE?: No VTE Risk Level:: Medical - moderate - high VTE Device Contraindication: Treatment Not Indicated VTE Drug Contraindication: N/A - Med Ordered
[2024-02-28] MEDS: Enoxaparin Sodium 40 MG/0.4 ML SYRINGE SUBCUT (15:04)
[2024-02-28 15:20] VITALS: BP 120/58; PULSE 54; RESP 20; TEMP 36.6; O2SAT 97
[2024-02-28 19:35] VITALS: BP 132/50; PULSE 55; RESP 20; TEMP 36.2; O2SAT 97
[2024-02-28] MEDS: traZODone HCL 50 MG TABLET PO (20:05)
[2024-02-29 04:00] VITALS: BP 133/61; PULSE 66; RESP 20; TEMP 36.2; O2SAT 100
[2024-02-29] MEDS: Acetaminophen 325 MG TABLET 650 MG PO ×2 (07:18→19:46)
[2024-02-29] MEDS: Gabapentin 100 MG CAPSULE PO (07:18)
[2024-02-29] MEDS: amLODIPine Besylate 5 MG TABLET PO (07:18)
[2024-02-29] MEDS: Cholecalciferol (Vitamin D3) 25 MCG TABLET PO (07:19)
[2024-02-29] MEDS: Aspirin Enteric Coated 81 MG TABLET.DR PO (07:19)
[2024-02-29] MEDS: FLUoxetine HCl 20 MG CAPSULE PO (07:19)
[2024-02-29] MEDS: Atorvastatin Calcium 20 MG TABLET PO (07:19)
--- NOTE | 2024-02-29 07:22 | P.PNIM_ITS ---
Subjective Subjective Date of Service: 02/29/24 Interval History: follow up for placement no overnight events no specific complaints today Review of Systems Review of Systems: Yes all other systems are reviewed and are negative Constitutional Constitutional: Denies fever(s) Cardiovascular Cardiovascular: Denies chest pain Neurologic Neurologic: Reports confusion Psychiatric Psychiatric: Reports confusion Physical Exam 2 Vital Signs: Vital Signs: Last Vital Signs Temp 97.2 F 02/29/24 04:00 Pulse 66 02/29/24 04:00 Resp 20 02/29/24 04:00 BP 133/61 02/29/24 04:00 Pulse Ox 100 02/29/24 04:00 O2 Del Method Room Air 02/29/24 04:00 O2 Flow Rate 3 12/22/23 20:00 BMI result Body Mass Index 28.0 alert and confused Const: General: confusion Orientation/consciousness: confusion Neuro: General: confusion Objective Data Active Medications Acetaminophen (Acetaminophen 325 Mg Tablet) 650 mg PO Q6H PRN PRN Reason: Pain, Mild (Pain Scale 1-3), fever or headache Last Admin: 02/17/24 08:57 Dose: 650 mg Acetaminophen (Acetaminophen 325 Mg Tablet) 650 mg PO BID [facility] Last Admin: 02/29/24 07:18 Dose: 650 mg Documented By: WAGNER Albuterol Sulfate (Albuterol Sulfate 90 Mcg 8 Gm Inhaler) 2 puff INHALE RQ6H PRN PRN Reason: sob Last Admin: 02/25/24 14:23 Dose: 2 puff Documented By: KAYLEIGH Amlodipine Besylate (Amlodipine Besylate 5 Mg Tablet) 5 mg PO DAILY [facility]; Protocol Last Admin: 02/29/24 07:18 Dose: 5 mg Documented By: WAGNER Artificial Tears (Artificial Tears 15 Ml Drops) 2 drop EYE-BOTH Q4H PRN PRN Reason: Dry Eyes Last Admin: 12/21/23 03:08 Dose: 2 drop Documented By: YOMI Aspirin (Aspirin Enteric Coated 81 Mg Tablet.) 81 mg PO DAILY [facility] Last Admin: 02/29/24 07:19 Dose: 81 mg Documented By: WAGNER Atorvastatin Calcium (Atorvastatin Calcium 20 Mg Tablet) 20 mg PO DAILY [facility] Last Admin: 02/29/24 07:19 Dose: 20 mg Documented By: WAGNER Calcium Carbonate (Calcium Carbonate 750 Mg Tab.Chew) 750 mg PO Q4H PRN PRN Reason: Heartburn Capsaicin (Capsaicin 0.025% Cream 60 Gm Tube) 1 appl TOPICAL QID PRN; Protocol PRN Reason: Pain, Moderate(Pain Scale 4-6) Last Admin: 02/26/24 20:46 Dose: 1 appl Documented By: VIRGINIE Enoxaparin Sodium (Enoxaparin Sodium 40 Mg/0.4 Ml Syringe) 40 mg SUBCUT Q24H [facility] Last Admin: 02/28/24 15:04 Dose: 40 mg Documented By: CAMILLA Fluoxetine HCl (Fluoxetine Hcl 20 Mg Capsule) 20 mg PO DAILY [facility] Last Admin: 02/29/24 07:19 Dose: 20 mg Documented By: WAGNER Fluticasone/Umeclidinium/Vilanterol (Fluticasone/Umeclidinium/Vilanterol 100/62.5/25 Blst.W.Dev) 1 puff INHALE RDAILY [facility] Last Admin: 02/28/24 08:57 Dose: 1 puff Documented By: KRISHNA Gabapentin (Gabapentin 100 Mg Capsule) 100 mg PO DAILY [facility] Last Admin: 02/29/24 07:18 Dose: 100 mg Documented By: WAGNER Magnesium Hydroxide (Milk Of Magnesia 30 Ml Oral.Susp) 30 ml PO DAILY PRN PRN Reason: Constipation Last Admin: 12/08/23 08:25 Dose: 30 ml Documented By: AUDI Melatonin (Melatonin 3 Mg Tablet) 6 mg PO BEDTIME PRN PRN Reason: Insomnia Last Admin: 02/27/24 20:39 Dose: 6 mg Documented By: VIRGINIE Trazodone HCl (Trazodone Hcl 50 Mg Tablet) 50 mg PO BEDTIME [facility] Last Admin: 02/28/24 20:05 Dose: 50 mg Documented By: JAN Vitamin D (Cholecalciferol (Vitamin D3) 25 Mcg Tablet) 25 mcg PO DAILY [facility] Last Admin: 02/29/24 07:19 Dose: 25 mcg Documented By: WAGNER Labs 02/24/24 13:17 02/24/24 13:17 Assessment and Plan (1) Major neurocognitive disorder: Status: Acute Plan 83M PMH copd, htn, hld, dementia unspecified, prostate ca, [facility] interaction with another female resident. Unspecified dementia, stable, needs placement Continue Prozac and trazodone, no inappropriate sexual behavior noted during hospitalization, daily out of bed to chair . check labs weekly left knee osteoarthritis continue as needed tramadol, Aspercreme scheduled Tylenol twice daily, Esau wrap and as needed heat, no change in examination. 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 supervised eating . neuropathic pain neurontin copd stable no exacerbation albuterol prn htn amldoipine. Stop hctz d/t low sodium mild hyponatremia monitor weekly labs leukocytosis--resolved hld, statin dvt prophylaxis - lovenox Attending dnr/dni reason for continued hospitalization:safe dispo planning, waiting for LTC placement, [facility] communicating with daughter for financial disclosure, no beds available at this time. Quality Stroke Does the patient have a stroke diagnosis?: No VTE Prior VTE?: No VTE Risk Level:: Medical - moderate - high VTE Device Contraindication: Treatment Not Indicated VTE Drug Contraindication: N/A - Med Ordered
[2024-02-29 07:40] VITALS: BP 124/58; PULSE 72; RESP 14; TEMP 36.2; O2SAT 98
[2024-02-29] MEDS: Fluticasone/Umeclidinium/Vilanterol 100/62.5/25 BLST.W.DEV 1 PUFF INHALE (08:32)
[2024-02-29 08:33] VITALS: PULSE 72; RESP 14; O2SAT 98
[2024-02-29] MEDS: Enoxaparin Sodium 40 MG/0.4 ML SYRINGE SUBCUT (13:00)
--- NOTE | 2024-02-29 14:40 | MHC.CM.PN ---
Patient awaiting LTC placement. Daughter working on financial disclosure for submission to [facility]. She will obtain bank statements and follow up w/ this CM. [facility] updated.
[2024-02-29 15:55] VITALS: BP 156/63; PULSE 62; RESP 12; TEMP 36.4; O2SAT 97
[2024-02-29 19:11] VITALS: BP 133/61; PULSE 86; RESP 20; TEMP 36.4; O2SAT 96
[2024-02-29] MEDS: traZODone HCL 50 MG TABLET PO (19:46)
[2024-03-01 03:40] VITALS: BP 138/76; PULSE 63; RESP 20; TEMP 36.2; O2SAT 98
[2024-03-01 07:35] VITALS: BP 136/59; PULSE 69; RESP 14; TEMP 36.5; O2SAT 97
[2024-03-01] MEDS: Gabapentin 100 MG CAPSULE PO (08:59)
[2024-03-01] MEDS: amLODIPine Besylate 5 MG TABLET PO (08:59)
[2024-03-01] MEDS: Atorvastatin Calcium 20 MG TABLET PO (08:59)
[2024-03-01] MEDS: Aspirin Enteric Coated 81 MG TABLET.DR PO (08:59)
[2024-03-01] MEDS: Acetaminophen 325 MG TABLET 650 MG PO ×2 (08:59→20:38)
[2024-03-01] MEDS: FLUoxetine HCl 20 MG CAPSULE PO (08:59)
[2024-03-01] MEDS: Cholecalciferol (Vitamin D3) 25 MCG TABLET PO (09:00)
[2024-03-01 09:08] VITALS: PULSE 61; RESP 16; O2SAT 97
[2024-03-01] MEDS: Fluticasone/Umeclidinium/Vilanterol 100/62.5/25 BLST.W.DEV 1 PUFF INHALE (09:08)
--- NOTE | 2024-03-01 14:57 | HO.PM.IMPN ---
Subjective Subjective Date of Service: 03/01/24 Interval History: seen and examined this morning follow up for placement no overnight events no specific complaints Review of Systems Review of Systems: Yes all other systems are reviewed and are negative Constitutional Constitutional: Denies fever(s) Physical Exam Vital Signs: Vital Signs: Last Vital Signs Temp 97.7 F 03/01/24 07:35 Pulse 61 03/01/24 09:08 Resp 16 03/01/24 09:08 BP 136/59 L 03/01/24 07:35 Pulse Ox 97 03/01/24 07:35 O2 Del Method Room Air 03/01/24 07:35 O2 Flow Rate 3 12/22/23 20:00 BMI result Body Mass Index 28.0 Const: Other: sitting up in chair General: alert and awake Nutritional Appearance: average body habitus Resp: Effort & Inspection: normal respiratory effort, able to speak in complete sentences, no respiratory distress and no use of accessory muscles Cardio: Rate: regular rate Neuro: General: moves all extremities and CN's II-XI intact bilaterally Extrem: General: Yes no pedal edema Objective Data Active Medications Acetaminophen (Acetaminophen 325 Mg Tablet) 650 mg PO Q6H PRN PRN Reason: Pain, Mild (Pain Scale 1-3), fever or headache Last Admin: 02/17/24 08:57 Dose: 650 mg Acetaminophen (Acetaminophen 325 Mg Tablet) 650 mg PO BID [facility] Last Admin: 03/01/24 08:59 Dose: 650 mg Documented By: HATTIE Albuterol Sulfate (Albuterol Sulfate 90 Mcg 8 Gm Inhaler) 2 puff INHALE RQ6H PRN PRN Reason: sob Last Admin: 02/25/24 14:23 Dose: 2 puff Documented By: KAYLEIGH Amlodipine Besylate (Amlodipine Besylate 5 Mg Tablet) 5 mg PO DAILY [facility]; Protocol Last Admin: 03/01/24 08:59 Dose: 5 mg Documented By: HATTIE Artificial Tears (Artificial Tears 15 Ml Drops) 2 drop EYE-BOTH Q4H PRN PRN Reason: Dry Eyes Last Admin: 12/21/23 03:08 Dose: 2 drop Documented By: YOMI Aspirin (Aspirin Enteric Coated 81 Mg Tablet.) 81 mg PO DAILY [facility] Last Admin: 03/01/24 08:59 Dose: 81 mg Documented By: HATTIE Atorvastatin Calcium (Atorvastatin Calcium 20 Mg Tablet) 20 mg PO DAILY [facility] Last Admin: 03/01/24 08:59 Dose: 20 mg Documented By: HATTIE Calcium Carbonate (Calcium Carbonate 750 Mg Tab.Chew) 750 mg PO Q4H PRN PRN Reason: Heartburn Capsaicin (Capsaicin 0.025% Cream 60 Gm Tube) 1 appl TOPICAL QID PRN; Protocol PRN Reason: Pain, Moderate(Pain Scale 4-6) Last Admin: 02/26/24 20:46 Dose: 1 appl Documented By: VIRGINIE Enoxaparin Sodium (Enoxaparin Sodium 40 Mg/0.4 Ml Syringe) 40 mg SUBCUT Q24H [facility] Last Admin: 02/29/24 13:00 Dose: 40 mg Documented By: WAGNER Fluoxetine HCl (Fluoxetine Hcl 20 Mg Capsule) 20 mg PO DAILY [facility] Last Admin: 03/01/24 08:59 Dose: 20 mg Documented By: HATTIE Fluticasone/Umeclidinium/Vilanterol (Fluticasone/Umeclidinium/Vilanterol 100/62.5/25 Blst.W.Dev) 1 puff INHALE RDAILY [facility] Last Admin: 03/01/24 09:08 Dose: 1 puff Documented By: KRISHNA Gabapentin (Gabapentin 100 Mg Capsule) 100 mg PO DAILY [facility] Last Admin: 03/01/24 08:59 Dose: 100 mg Documented By: HATTIE Magnesium Hydroxide (Milk Of Magnesia 30 Ml Oral.Susp) 30 ml PO DAILY PRN PRN Reason: Constipation Last Admin: 12/08/23 08:25 Dose: 30 ml Documented By: AUDI Melatonin (Melatonin 3 Mg Tablet) 6 mg PO BEDTIME PRN PRN Reason: Insomnia Last Admin: 02/27/24 20:39 Dose: 6 mg Documented By: VIRGINIE Trazodone HCl (Trazodone Hcl 50 Mg Tablet) 50 mg PO BEDTIME [facility] Last Admin: 02/29/24 19:46 Dose: 50 mg Documented By: MACY Vitamin D (Cholecalciferol (Vitamin D3) 25 Mcg Tablet) 25 mcg PO DAILY [facility] Last Admin: 03/01/24 09:00 Dose: 25 mcg Documented By: HATTIE Labs 02/24/24 13:17 02/24/24 13:17 Assessment and Plan (1) Major neurocognitive disorder: Status: Acute Plan 83M PMH copd, htn, hld, dementia unspecified, prostate ca, sent in from senior living after inappropriate interaction with another female resident. Unspecified dementia, stable, needs placement Continue Prozac and trazodone, no inappropriate sexual behavior noted during hospitalization, daily out of bed to chair check labs weekly left knee osteoarthritis continue as needed tramadol, Aspercreme scheduled Tylenol twice daily, Esau wrap and as needed heat, no change in examination. 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 supervised eating neuropathic pain neurontin copd stable no exacerbation albuterol prn htn amldoipine. Stop hctz d/t low sodium mild hyponatremia monitor weekly labs leukocytosis--resolved hld, statin dvt prophylaxis - lovenox Attending dnr/dni reason for continued hospitalization:safe dispo planning, waiting for LTC placement, [facility] communicating with daughter for financial disclosure, no beds available at this time. Quality Stroke Does the patient have a stroke diagnosis?: No VTE Prior VTE?: No VTE Risk Level:: Medical - moderate - high VTE Device Contraindication: Treatment Not Indicated VTE Drug Contraindication: N/A - Med Ordered
[2024-03-01] MEDS: Enoxaparin Sodium 40 MG/0.4 ML SYRINGE SUBCUT (15:21)
[2024-03-01 15:31] VITALS: BP 139/63; PULSE 55; RESP 12; TEMP 36.3; O2SAT 96
[2024-03-01 19:52] VITALS: BP 145/68; PULSE 70; RESP 16; TEMP 37; O2SAT 96
[2024-03-01] MEDS: traZODone HCL 50 MG TABLET PO (20:38)
[2024-03-02 03:19] VITALS: BP 109/57; PULSE 56; RESP 14; TEMP 36; O2SAT 96
[2024-03-02 07:54] VITALS: BP 137/65; PULSE 70; RESP 18; TEMP 37.1; O2SAT 98
[2024-03-02] MEDS: Fluticasone/Umeclidinium/Vilanterol 100/62.5/25 BLST.W.DEV 1 PUFF INHALE (08:46)
[2024-03-02 08:47] VITALS: PULSE 79; RESP 18; O2SAT 95
[2024-03-02 09:29] VITALS: BP 142/65
[2024-03-02] MEDS: FLUoxetine HCl 20 MG CAPSULE PO (09:29)
[2024-03-02] MEDS: Atorvastatin Calcium 20 MG TABLET PO (09:29)
[2024-03-02] MEDS: Gabapentin 100 MG CAPSULE PO (09:29)
[2024-03-02] MEDS: Cholecalciferol (Vitamin D3) 25 MCG TABLET PO (09:29)
[2024-03-02] MEDS: amLODIPine Besylate 5 MG TABLET PO (09:29)
[2024-03-02] MEDS: Aspirin Enteric Coated 81 MG TABLET.DR PO (09:31)
[2024-03-02] MEDS: Acetaminophen 325 MG TABLET 650 MG PO ×2 (09:31→18:43)
--- NOTE | 2024-03-02 09:31 | MHC.CM.PN ---
Addendum entered by Nieves Mustafa RN 03/02/24 13:05: Per [place]yanne, business office is requesting: proof of transfer of assets (home), and letter from social security w/ patient's benefits. Daughter aware and has already requested SS information. Original Note: Patient continues to await LTC placement. Daughter completed financial disclosure and CM sent to [facility]. Per liaison, being reviewed by business office and will know by 03/05 if more information is needed. CM will continue to follow.
--- NOTE | 2024-03-02 12:18 | HO.PM.IMPN ---
Subjective Subjective Date of Service: 03/02/24 Interval History: seen and examined this morning follow up for placement no overnight events no complaints this am Review of Systems unreliable ROS due to underlying dementia Physical Exam Vital Signs: Vital Signs: Last Vital Signs Temp 98.8 F 03/02/24 07:54 Pulse 79 03/02/24 08:47 Resp 18 03/02/24 08:47 BP 142/65 H 03/02/24 09:29 Pulse Ox 98 03/02/24 07:54 O2 Del Method Room Air 03/02/24 07:54 O2 Flow Rate 3 12/22/23 20:00 BMI result Body Mass Index 28.0 Const: Other: sitting up in chair General: alert and awake Nutritional Appearance: average body habitus Resp: Effort & Inspection: normal respiratory effort, able to speak in complete sentences, no respiratory distress and no use of accessory muscles Cardio: Rate: regular rate Neuro: General: moves all extremities and CN's II-XI intact bilaterally Extrem: General: Yes no pedal edema Objective Data Active Medications Acetaminophen (Acetaminophen 325 Mg Tablet) 650 mg PO Q6H PRN PRN Reason: Pain, Mild (Pain Scale 1-3), fever or headache Last Admin: 02/17/24 08:57 Dose: 650 mg Acetaminophen (Acetaminophen 325 Mg Tablet) 650 mg PO BID [facility] Last Admin: 03/02/24 09:31 Dose: 650 mg Documented By: DOMINIQUE Albuterol Sulfate (Albuterol Sulfate 90 Mcg 8 Gm Inhaler) 2 puff INHALE RQ6H PRN PRN Reason: sob Last Admin: 02/25/24 14:23 Dose: 2 puff Documented By: KAYLEIGH Amlodipine Besylate (Amlodipine Besylate 5 Mg Tablet) 5 mg PO DAILY [facility]; Protocol Last Admin: 03/02/24 09:29 Dose: 5 mg Documented By: DOMINIQUE Artificial Tears (Artificial Tears 15 Ml Drops) 2 drop EYE-BOTH Q4H PRN PRN Reason: Dry Eyes Last Admin: 12/21/23 03:08 Dose: 2 drop Documented By: YOMI Aspirin (Aspirin Enteric Coated 81 Mg Tablet.) 81 mg PO DAILY [facility] Last Admin: 03/02/24 09:31 Dose: 81 mg Documented By: DOMINIQUE Atorvastatin Calcium (Atorvastatin Calcium 20 Mg Tablet) 20 mg PO DAILY [facility] Last Admin: 03/02/24 09:29 Dose: 20 mg Documented By: DOMINIQUE Calcium Carbonate (Calcium Carbonate 750 Mg Tab.Chew) 750 mg PO Q4H PRN PRN Reason: Heartburn Capsaicin (Capsaicin 0.025% Cream 60 Gm Tube) 1 appl TOPICAL QID PRN; Protocol PRN Reason: Pain, Moderate(Pain Scale 4-6) Last Admin: 02/26/24 20:46 Dose: 1 appl Documented By: VIRGINIE Enoxaparin Sodium (Enoxaparin Sodium 40 Mg/0.4 Ml Syringe) 40 mg SUBCUT Q24H [facility] Last Admin: 03/01/24 15:21 Dose: 40 mg Documented By: HATTIE Fluoxetine HCl (Fluoxetine Hcl 20 Mg Capsule) 20 mg PO DAILY [facility] Last Admin: 03/02/24 09:29 Dose: 20 mg Documented By: DOMINIQUE Fluticasone/Umeclidinium/Vilanterol (Fluticasone/Umeclidinium/Vilanterol 100/62.5/25 Blst.W.Dev) 1 puff INHALE RDAILY [facility] Last Admin: 03/02/24 08:46 Dose: 1 puff Documented By: DEN Gabapentin (Gabapentin 100 Mg Capsule) 100 mg PO DAILY [facility] Last Admin: 03/02/24 09:29 Dose: 100 mg Documented By: DOMINIQUE Magnesium Hydroxide (Milk Of Magnesia 30 Ml Oral.Susp) 30 ml PO DAILY PRN PRN Reason: Constipation Last Admin: 12/08/23 08:25 Dose: 30 ml Documented By: AUDI Melatonin (Melatonin 3 Mg Tablet) 6 mg PO BEDTIME PRN PRN Reason: Insomnia Last Admin: 02/27/24 20:39 Dose: 6 mg Documented By: VIRGINIE Trazodone HCl (Trazodone Hcl 50 Mg Tablet) 50 mg PO BEDTIME [facility] Last Admin: 03/01/24 20:38 Dose: 50 mg Documented By: PADMINI Vitamin D (Cholecalciferol (Vitamin D3) 25 Mcg Tablet) 25 mcg PO DAILY [facility] Last Admin: 03/02/24 09:29 Dose: 25 mcg Documented By: DOMINIQUE Labs 02/24/24 13:17 02/24/24 13:17 Assessment and Plan (1) Major neurocognitive disorder: Status: Acute Plan 83M PMH copd, htn, hld, dementia unspecified, prostate ca, sent in from shelter after inappropriate interaction with another female resident. Unspecified dementia, stable, needs placement Continue Prozac and trazodone, no inappropriate sexual behavior noted during hospitalization, daily out of bed to chair check labs weekly left knee osteoarthritis continue as needed tramadol, Aspercreme scheduled Tylenol twice daily, Esau wrap and as needed heat, no change in examination. 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 supervised eating neuropathic pain neurontin copd stable no exacerbation albuterol prn htn amldoipine. Stop hctz d/t low sodium mild hyponatremia monitor weekly labs leukocytosis--resolved hld, statin dvt prophylaxis - lovenox Attending dnr/dni reason for continued hospitalization:safe dispo planning, waiting for LTC placement, [facility] communicating with daughter for financial disclosure, no beds available at this time. Quality Stroke Does the patient have a stroke diagnosis?: No VTE Prior VTE?: No VTE Risk Level:: Medical - moderate - high VTE Device Contraindication: Treatment Not Indicated VTE Drug Contraindication: N/A - Med Ordered
[2024-03-02] MEDS: Enoxaparin Sodium 40 MG/0.4 ML SYRINGE SUBCUT (14:32)
[2024-03-02 15:34] VITALS: BP 154/67; PULSE 58; RESP 16; TEMP 37; O2SAT 98
--- NOTE | 2024-03-02 16:43 | PC.NURSE ---
Patient calm and cooperative throughout shift. Patient alert and oriented x2, vague time and situation. OOB with anastasiia lift to chair. Meds crushed with applesauce and assisted with meals. Patient reports intermittent knee pain, given scheduled Tylenol. Patient has no complaints throughout shift, all needs met.
[2024-03-02 19:56] VITALS: BP 113/58; PULSE 68; RESP 18; TEMP 36.8; O2SAT 96
[2024-03-02] MEDS: Melatonin 3 MG TABLET 6 MG PO (21:37)
[2024-03-02] MEDS: traZODone HCL 50 MG TABLET PO (21:38)
[2024-03-03 03:33] VITALS: BP 105/68; PULSE 54; RESP 18; TEMP 36.5; O2SAT 92
[2024-03-03 07:20] LABS: Anion Gap 14 (12-20); Blood Urea Nitrogen 13 mg/dL (9-16); Calcium 9.1 mg/dL (8.4-10.2); Carbon Dioxide 28 mmol/L (22-29); Chloride 99 mmol/L (96-108); Creatinine Clr Calc Pharmacy 65.6; Estimated Glomerular Filt Rate > 60; Glucose Random 91 mg/dL (60-115); Potassium 4.5 mmol/L (3.3-5.1); Sodium 136 mmol/L (135-145)
[2024-03-03 08:00] VITALS: BP 112/68; PULSE 58; RESP 16; TEMP 36.8; O2SAT 95
[2024-03-03 08:09] VITALS: PULSE 54; RESP 18; O2SAT 92
[2024-03-03] MEDS: Fluticasone/Umeclidinium/Vilanterol 100/62.5/25 BLST.W.DEV 1 PUFF INHALE (08:09)
[2024-03-03] MEDS: Gabapentin 100 MG CAPSULE PO (08:47)
[2024-03-03] MEDS: FLUoxetine HCl 20 MG CAPSULE PO (08:47)
[2024-03-03] MEDS: Atorvastatin Calcium 20 MG TABLET PO (08:47)
[2024-03-03] MEDS: Cholecalciferol (Vitamin D3) 25 MCG TABLET PO (08:47)
[2024-03-03] MEDS: Aspirin Enteric Coated 81 MG TABLET.DR PO (08:47)
[2024-03-03] MEDS: amLODIPine Besylate 5 MG TABLET PO (08:47)
[2024-03-03] MEDS: Acetaminophen 325 MG TABLET 650 MG PO ×2 (08:47→21:22)
--- NOTE | 2024-03-03 11:16 | P.PNIM_ITS ---
Subjective Subjective Date of Service: 03/03/24 Interval History: seen and examined this morning follow up for placement no overnight events no complaints this am Review of Systems unreliable ROS due to underlying dementia Physical Exam 2 Vital Signs: Vital Signs: Last Vital Signs Temp 98.2 F 03/03/24 08:00 Pulse 54 03/03/24 08:09 Resp 18 03/03/24 08:09 BP 112/68 03/03/24 08:00 Pulse Ox 95 03/03/24 08:00 O2 Del Method Room Air 03/03/24 08:00 O2 Flow Rate 3 12/22/23 20:00 BMI result Body Mass Index 28.0 Appearing in no acute distress Objective Data Active Medications Acetaminophen (Acetaminophen 325 Mg Tablet) 650 mg PO Q6H PRN PRN Reason: Pain, Mild (Pain Scale 1-3), fever or headache Last Admin: 03/02/24 18:43 Dose: 650 mg Documented By: DOMINIQUE Acetaminophen (Acetaminophen 325 Mg Tablet) 650 mg PO BID [facility] Last Admin: 03/03/24 08:47 Dose: 650 mg Documented By: MACY Albuterol Sulfate (Albuterol Sulfate 90 Mcg 8 Gm Inhaler) 2 puff INHALE RQ6H PRN PRN Reason: sob Last Admin: 02/25/24 14:23 Dose: 2 puff Documented By: KAYLEIGH Amlodipine Besylate (Amlodipine Besylate 5 Mg Tablet) 5 mg PO DAILY [facility]; Protocol Last Admin: 03/03/24 08:47 Dose: 5 mg Documented By: MACY Artificial Tears (Artificial Tears 15 Ml Drops) 2 drop EYE-BOTH Q4H PRN PRN Reason: Dry Eyes Last Admin: 12/21/23 03:08 Dose: 2 drop Documented By: YOMI Aspirin (Aspirin Enteric Coated 81 Mg Tablet.Dr) 81 mg PO DAILY [facility] Last Admin: 03/03/24 08:47 Dose: 81 mg Documented By: MACY Atorvastatin Calcium (Atorvastatin Calcium 20 Mg Tablet) 20 mg PO DAILY [facility] Last Admin: 03/03/24 08:47 Dose: 20 mg Documented By: MACY Calcium Carbonate (Calcium Carbonate 750 Mg Tab.Chew) 750 mg PO Q4H PRN PRN Reason: Heartburn Capsaicin (Capsaicin 0.025% Cream 60 Gm Tube) 1 appl TOPICAL QID PRN; Protocol PRN Reason: Pain, Moderate(Pain Scale 4-6) Last Admin: 02/26/24 20:46 Dose: 1 appl Documented By: VIRGINIE Enoxaparin Sodium (Enoxaparin Sodium 40 Mg/0.4 Ml Syringe) 40 mg SUBCUT Q24H [facility] Last Admin: 03/02/24 14:32 Dose: 40 mg Documented By: DOMINIQUE Fluoxetine HCl (Fluoxetine Hcl 20 Mg Capsule) 20 mg PO DAILY [facility] Last Admin: 03/03/24 08:47 Dose: 20 mg Documented By: MACY Fluticasone/Umeclidinium/Vilanterol (Fluticasone/Umeclidinium/Vilanterol 100/62.5/25 Blst.W.Dev) 1 puff INHALE RDAILY [facility] Last Admin: 03/03/24 08:09 Dose: 1 puff Documented By: REJI Gabapentin (Gabapentin 100 Mg Capsule) 100 mg PO DAILY [facility] Last Admin: 03/03/24 08:47 Dose: 100 mg Documented By: MACY Magnesium Hydroxide (Milk Of Magnesia 30 Ml Oral.Susp) 30 ml PO DAILY PRN PRN Reason: Constipation Last Admin: 12/08/23 08:25 Dose: 30 ml Documented By: AUDI Melatonin (Melatonin 3 Mg Tablet) 6 mg PO BEDTIME PRN PRN Reason: Insomnia Last Admin: 03/02/24 21:37 Dose: 6 mg Documented By: JAYDE Trazodone HCl (Trazodone Hcl 50 Mg Tablet) 50 mg PO BEDTIME [facility] Last Admin: 03/02/24 21:38 Dose: 50 mg Documented By: JAYDE Vitamin D (Cholecalciferol (Vitamin D3) 25 Mcg Tablet) 25 mcg PO DAILY [facility] Last Admin: 03/03/24 08:47 Dose: 25 mcg Documented By: MACY Labs 02/24/24 13:17 03/03/24 05:55 Labs: Laboratory Results - last 24 hr 03/03/24 05:55 Hold Purple Top SEE NOTE Anion Gap 14 Estim Creat Clear Calc 65.6 Estimated GFR > 60 Random Glucose 91 Calcium 9.1 Assessment and Plan (1) Major neurocognitive disorder: Status: Acute Plan 83M PMH copd, htn, hld, dementia unspecified, prostate ca, sent in from long-term after inappropriate interaction with another female resident. Unspecified dementia, stable, needs placement Continue Prozac and trazodone, no inappropriate sexual behavior noted during hospitalization, daily out of bed to chair check labs weekly left knee osteoarthritis continue as needed tramadol, Aspercreme scheduled Tylenol twice daily, Esau wrap and as needed heat, no change in examination. 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 supervised eating neuropathic pain neurontin copd stable no exacerbation albuterol prn htn amldoipine. Stop hctz d/t low sodium mild hyponatremia monitor weekly labs leukocytosis--resolved hld, statin dvt prophylaxis - lovenox Attending Dr. Badillo dnr/dni reason for continued hospitalization:safe dispo planning, waiting for LTC placement, [facility] communicating with daughter for financial disclosure, no beds available at this time. Quality Stroke Does the patient have a stroke diagnosis?: No VTE Prior VTE?: No VTE Risk Level:: Medical - moderate - high VTE Device Contraindication: Treatment Not Indicated VTE Drug Contraindication: N/A - Med Ordered
[2024-03-03] MEDS: Enoxaparin Sodium 40 MG/0.4 ML SYRINGE SUBCUT (15:12)
[2024-03-03 15:17] VITALS: BP 148/68; PULSE 50; RESP 14; TEMP 36.4; O2SAT 97
[2024-03-03 19:42] VITALS: BP 105/54; PULSE 63; RESP 18; TEMP 36.4; O2SAT 97
[2024-03-03] MEDS: traZODone HCL 50 MG TABLET PO (21:22)
[2024-03-04 04:00] VITALS: BP 128/60; PULSE 64; RESP 18; TEMP 36.3; O2SAT 97
--- NOTE | 2024-03-04 07:08 | P.PNIM_ITS ---
Subjective Subjective Date of Service: 03/04/24 Interval History: follow up for placement no overnight events no complaints this am sitting up in the chair during the day Review of Systems unreliable ROS due to underlying dementia Physical Exam 2 Vital Signs: Vital Signs: Last Vital Signs Temp 97.3 F 03/04/24 04:00 Pulse 64 03/04/24 04:00 Resp 18 03/04/24 04:00 BP 128/60 03/04/24 04:00 Pulse Ox 97 03/04/24 04:00 O2 Del Method Room Air 03/04/24 04:00 O2 Flow Rate 3 12/22/23 20:00 BMI result Body Mass Index 28.0 alert and confused Objective Data Active Medications Acetaminophen (Acetaminophen 325 Mg Tablet) 650 mg PO Q6H PRN PRN Reason: Pain, Mild (Pain Scale 1-3), fever or headache Last Admin: 03/02/24 18:43 Dose: 650 mg Documented By: DOMINIQUE Acetaminophen (Acetaminophen 325 Mg Tablet) 650 mg PO BID [facility] Last Admin: 03/03/24 21:22 Dose: 650 mg Documented By: ONI Albuterol Sulfate (Albuterol Sulfate 90 Mcg 8 Gm Inhaler) 2 puff INHALE RQ6H PRN PRN Reason: sob Last Admin: 02/25/24 14:23 Dose: 2 puff Documented By: KAYLEIGH Amlodipine Besylate (Amlodipine Besylate 5 Mg Tablet) 5 mg PO DAILY [facility]; Protocol Last Admin: 03/03/24 08:47 Dose: 5 mg Documented By: MACY Artificial Tears (Artificial Tears 15 Ml Drops) 2 drop EYE-BOTH Q4H PRN PRN Reason: Dry Eyes Last Admin: 12/21/23 03:08 Dose: 2 drop Documented By: YOMI Aspirin (Aspirin Enteric Coated 81 Mg Tablet.Dr) 81 mg PO DAILY [facility] Last Admin: 03/03/24 08:47 Dose: 81 mg Documented By: MACY Atorvastatin Calcium (Atorvastatin Calcium 20 Mg Tablet) 20 mg PO DAILY [facility] Last Admin: 03/03/24 08:47 Dose: 20 mg Documented By: MACY Calcium Carbonate (Calcium Carbonate 750 Mg Tab.Chew) 750 mg PO Q4H PRN PRN Reason: Heartburn Capsaicin (Capsaicin 0.025% Cream 60 Gm Tube) 1 appl TOPICAL QID PRN; Protocol PRN Reason: Pain, Moderate(Pain Scale 4-6) Last Admin: 02/26/24 20:46 Dose: 1 appl Documented By: VIRGINIE Enoxaparin Sodium (Enoxaparin Sodium 40 Mg/0.4 Ml Syringe) 40 mg SUBCUT Q24H [facility] Last Admin: 03/03/24 15:12 Dose: 40 mg Documented By: SAMMIE Fluticasone/Umeclidinium/Vilanterol (Fluticasone/Umeclidinium/Vilanterol 100/62.5/25 Blst.W.Dev) 1 puff INHALE RDAILY [facility] Last Admin: 03/03/24 08:09 Dose: 1 puff Documented By: REJI Gabapentin (Gabapentin 100 Mg Capsule) 100 mg PO DAILY [facility] Last Admin: 03/03/24 08:47 Dose: 100 mg Documented By: MACY Magnesium Hydroxide (Milk Of Magnesia 30 Ml Oral.Susp) 30 ml PO DAILY PRN PRN Reason: Constipation Last Admin: 12/08/23 08:25 Dose: 30 ml Documented By: AUDI Melatonin (Melatonin 3 Mg Tablet) 6 mg PO BEDTIME PRN PRN Reason: Insomnia Last Admin: 03/02/24 21:37 Dose: 6 mg Documented By: JAYDE Trazodone HCl (Trazodone Hcl 50 Mg Tablet) 50 mg PO BEDTIME [facility] Last Admin: 03/03/24 21:22 Dose: 50 mg Documented By: ONI Vitamin D (Cholecalciferol (Vitamin D3) 25 Mcg Tablet) 25 mcg PO DAILY [facility] Last Admin: 03/03/24 08:47 Dose: 25 mcg Documented By: MACY Labs 02/24/24 13:17 03/03/24 05:55 Labs: Laboratory Results - last 24 hr 03/03/24 05:55 Anion Gap 14 Estim Creat Clear Calc 65.6 Estimated GFR > 60 Random Glucose 91 Calcium 9.1 Assessment and Plan (1) Major neurocognitive disorder: Status: Acute Plan 83M PMH copd, htn, hld, dementia unspecified, prostate ca, sent in from custodial after inappropriate interaction with another female resident. 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 supervised eating neuropathic pain neurontin copd stable no exacerbation albuterol prn htn amldoipine. mild hyponatremia monitor weekly labs leukocytosis resolved hld statin dvt prophylaxis - lovenox Attending Dr. Badillo dnr/dni reason for continued hospitalization:safe dispo planning, waiting for LTC placement, [facility] communicating with daughter for financial disclosure, no beds available at this time. Quality Stroke Does the patient have a stroke diagnosis?: No VTE Prior VTE?: No VTE Risk Level:: Medical - moderate - high VTE Device Contraindication: Treatment Not Indicated VTE Drug Contraindication: N/A - Med Ordered
[2024-03-04 08:00] VITALS: BP 135/63; PULSE 66; RESP 18; TEMP 36.5; O2SAT 97
[2024-03-04] MEDS: Fluticasone/Umeclidinium/Vilanterol 100/62.5/25 BLST.W.DEV 1 PUFF INHALE (08:05)
[2024-03-04 08:06] VITALS: PULSE 64; RESP 18; O2SAT 94
[2024-03-04] MEDS: Atorvastatin Calcium 20 MG TABLET PO (08:49)
[2024-03-04] MEDS: amLODIPine Besylate 5 MG TABLET PO (08:49)
[2024-03-04] MEDS: Acetaminophen 325 MG TABLET 650 MG PO ×3 (08:49→20:53)
[2024-03-04] MEDS: Aspirin Enteric Coated 81 MG TABLET.DR PO (08:49)
[2024-03-04] MEDS: Gabapentin 100 MG CAPSULE PO (08:49)
[2024-03-04] MEDS: Cholecalciferol (Vitamin D3) 25 MCG TABLET PO (08:49)
[2024-03-04] MEDS: Enoxaparin Sodium 40 MG/0.4 ML SYRINGE SUBCUT (13:48)
[2024-03-04 15:42] VITALS: BP 112/69; PULSE 59; RESP 18; TEMP 36.6; O2SAT 98
[2024-03-04 19:51] VITALS: BP 122/60; PULSE 60; RESP 18; TEMP 36.5; O2SAT 98
[2024-03-04] MEDS: traZODone HCL 50 MG TABLET PO (20:53)
[2024-03-05 03:28] VITALS: BP 134/64; PULSE 59; RESP 16; TEMP 36.1; O2SAT 95
--- NOTE | 2024-03-05 06:55 | P.PNIM_ITS ---
Subjective Subjective Date of Service: 03/05/24 Interval History: follow up for placement no overnight events no complaints this am sitting up in the chair during the day Review of Systems unreliable ROS due to underlying dementia Physical Exam 2 Vital Signs: Vital Signs: Last Vital Signs Temp 96.9 F 03/05/24 03:28 Pulse 59 03/05/24 03:28 Resp 16 03/05/24 03:28 BP 134/64 03/05/24 03:28 Pulse Ox 95 03/05/24 03:28 O2 Del Method Room Air 03/05/24 03:28 O2 Flow Rate 3 12/22/23 20:00 BMI result Body Mass Index 28.0 Appearing in no acute distress LSCTA abd soft neuro patient is alert Objective Data Active Medications Acetaminophen (Acetaminophen 325 Mg Tablet) 650 mg PO Q6H PRN PRN Reason: Pain, Mild (Pain Scale 1-3), fever or headache Last Admin: 03/04/24 16:01 Dose: 650 mg Documented By: SAMMIE Acetaminophen (Acetaminophen 325 Mg Tablet) 650 mg PO BID [facility] Last Admin: 03/04/24 20:53 Dose: 650 mg Documented By: ADAM Albuterol Sulfate (Albuterol Sulfate 90 Mcg 8 Gm Inhaler) 2 puff INHALE RQ6H PRN PRN Reason: sob Last Admin: 02/25/24 14:23 Dose: 2 puff Documented By: KAYLEIGH Amlodipine Besylate (Amlodipine Besylate 5 Mg Tablet) 5 mg PO DAILY [facility]; Protocol Last Admin: 03/04/24 08:49 Dose: 5 mg Documented By: SAMMIE Artificial Tears (Artificial Tears 15 Ml Drops) 2 drop EYE-BOTH Q4H PRN PRN Reason: Dry Eyes Last Admin: 12/21/23 03:08 Dose: 2 drop Documented By: YOMI Aspirin (Aspirin Enteric Coated 81 Mg Tablet.) 81 mg PO DAILY [facility] Last Admin: 03/04/24 08:49 Dose: 81 mg Documented By: SAMMIE Atorvastatin Calcium (Atorvastatin Calcium 20 Mg Tablet) 20 mg PO DAILY [facility] Last Admin: 03/04/24 08:49 Dose: 20 mg Documented By: SAMMIE Calcium Carbonate (Calcium Carbonate 750 Mg Tab.Chew) 750 mg PO Q4H PRN PRN Reason: Heartburn Capsaicin (Capsaicin 0.025% Cream 60 Gm Tube) 1 appl TOPICAL QID PRN; Protocol PRN Reason: Pain, Moderate(Pain Scale 4-6) Last Admin: 02/26/24 20:46 Dose: 1 appl Documented By: VIRGINIE Enoxaparin Sodium (Enoxaparin Sodium 40 Mg/0.4 Ml Syringe) 40 mg SUBCUT Q24H [facility] Last Admin: 03/04/24 13:48 Dose: 40 mg Documented By: SAMMIE Fluticasone/Umeclidinium/Vilanterol (Fluticasone/Umeclidinium/Vilanterol 100/62.5/25 Blst.W.Dev) 1 puff INHALE RDAILY [facility] Last Admin: 03/04/24 08:05 Dose: 1 puff Documented By: REJI Gabapentin (Gabapentin 100 Mg Capsule) 100 mg PO DAILY [facility] Last Admin: 03/04/24 08:49 Dose: 100 mg Documented By: SAMMIE Magnesium Hydroxide (Milk Of Magnesia 30 Ml Oral.Susp) 30 ml PO DAILY PRN PRN Reason: Constipation Last Admin: 12/08/23 08:25 Dose: 30 ml Documented By: AUDI Melatonin (Melatonin 3 Mg Tablet) 6 mg PO BEDTIME PRN PRN Reason: Insomnia Last Admin: 03/02/24 21:37 Dose: 6 mg Documented By: JAYDE Trazodone HCl (Trazodone Hcl 50 Mg Tablet) 50 mg PO BEDTIME [facility] Last Admin: 03/04/24 20:53 Dose: 50 mg Documented By: ADAM Vitamin D (Cholecalciferol (Vitamin D3) 25 Mcg Tablet) 25 mcg PO DAILY [facility] Last Admin: 03/04/24 08:49 Dose: 25 mcg Documented By: SAMMIE Labs 02/24/24 13:17 03/03/24 05:55 Assessment and Plan (1) Major neurocognitive disorder: Status: Acute Plan 83M PMH copd, htn, hld, dementia unspecified, prostate ca, sent in from long term after inappropriate interaction with another female resident. 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 supervised eating neuropathic pain neurontin copd stable no exacerbation albuterol prn htn amldoipine. mild hyponatremia monitor weekly labs leukocytosis resolved hld statin dvt prophylaxis - lovenox Attending Dr. Chris dnr/dni reason for continued hospitalization:safe dispo planning, waiting for LTC placement, [facility] communicating with daughter for financial disclosure, no beds available at this time. Quality Stroke Does the patient have a stroke diagnosis?: No VTE Prior VTE?: No VTE Risk Level:: Medical - moderate - high VTE Device Contraindication: Treatment Not Indicated VTE Drug Contraindication: N/A - Med Ordered
[2024-03-05 07:16] VITALS: BP 136/63; PULSE 66; RESP 18; TEMP 36.7; O2SAT 97
[2024-03-05] MEDS: Fluticasone/Umeclidinium/Vilanterol 100/62.5/25 BLST.W.DEV 1 PUFF INHALE (08:41)
[2024-03-05 08:42] VITALS: PULSE 66; RESP 18; O2SAT 97
[2024-03-05] MEDS: Atorvastatin Calcium 20 MG TABLET PO (09:21)
[2024-03-05] MEDS: Aspirin Enteric Coated 81 MG TABLET.DR PO (09:21)
[2024-03-05] MEDS: Gabapentin 100 MG CAPSULE PO (09:21)
[2024-03-05] MEDS: Cholecalciferol (Vitamin D3) 25 MCG TABLET PO (09:22)
[2024-03-05] MEDS: Acetaminophen 325 MG TABLET 650 MG PO ×2 (09:22→20:19)
[2024-03-05] MEDS: amLODIPine Besylate 5 MG TABLET PO (09:22)
[2024-03-05] MEDS: Capsaicin 0.025% Cream 60 GM TUBE 1 APPL TOPICAL (09:29)
--- NOTE | 2024-03-05 11:13 | MHC.CM.PN ---
Patient continues to await LTC placement. [facility] does not have beds at this time. Potential bed at sister facility in [place]. Will need to apply for [place] medicaid (after admission to facility). Awaiting daughter to provide proof of SS benefits and transfer of assets (home). KALIN KAN for daughter Rayne to follow up on this request. Will continue to follow.
[2024-03-05] MEDS: Enoxaparin Sodium 40 MG/0.4 ML SYRINGE SUBCUT (14:50)
[2024-03-05 15:13] VITALS: BP 121/74; PULSE 57; RESP 18; TEMP 36.4; O2SAT 96
[2024-03-05 20:00] VITALS: BP 159/67; PULSE 70; RESP 20; TEMP 36.3; O2SAT 99
[2024-03-05] MEDS: traZODone HCL 50 MG TABLET PO (20:19)
[2024-03-06 03:39] VITALS: BP 119/59; PULSE 64; RESP 16; TEMP 36.2; O2SAT 96
--- NOTE | 2024-03-06 07:17 | HO.PM.IMPN ---
Subjective Subjective Date of Service: 03/06/24 Interval History: follow up for placement no overnight events no complaints this am sitting up in the chair during the day Review of Systems unreliable ROS due to underlying dementia Physical Exam Vital Signs: Vital Signs: Last Vital Signs Temp 97.1 F 03/06/24 03:39 Pulse 64 03/06/24 03:39 Resp 16 03/06/24 03:39 BP 119/59 L 03/06/24 03:39 Pulse Ox 96 03/06/24 03:39 O2 Del Method Room Air 03/06/24 03:39 O2 Flow Rate 3 12/22/23 20:00 BMI result Body Mass Index 28.0 Appearing in no acute distress neuro patient is alert, confused Objective Data Active Medications Acetaminophen (Acetaminophen 325 Mg Tablet) 650 mg PO Q6H PRN PRN Reason: Pain, Mild (Pain Scale 1-3), fever or headache Last Admin: 03/04/24 16:01 Dose: 650 mg Documented By: SAMMIE Acetaminophen (Acetaminophen 325 Mg Tablet) 650 mg PO BID [facility] Last Admin: 03/05/24 20:19 Dose: 650 mg Documented By: ADAM Albuterol Sulfate (Albuterol Sulfate 90 Mcg 8 Gm Inhaler) 2 puff INHALE RQ6H PRN PRN Reason: sob Last Admin: 02/25/24 14:23 Dose: 2 puff Documented By: KAYLEIGH Amlodipine Besylate (Amlodipine Besylate 5 Mg Tablet) 5 mg PO DAILY [facility]; Protocol Last Admin: 03/05/24 09:22 Dose: 5 mg Documented By: TRISTON Artificial Tears (Artificial Tears 15 Ml Drops) 2 drop EYE-BOTH Q4H PRN PRN Reason: Dry Eyes Last Admin: 12/21/23 03:08 Dose: 2 drop Documented By: YOMI Aspirin (Aspirin Enteric Coated 81 Mg Tablet.Dr) 81 mg PO DAILY [facility] Last Admin: 03/05/24 09:21 Dose: 81 mg Documented By: TRISTON Atorvastatin Calcium (Atorvastatin Calcium 20 Mg Tablet) 20 mg PO DAILY [facility] Last Admin: 03/05/24 09:21 Dose: 20 mg Documented By: TRISTON Calcium Carbonate (Calcium Carbonate 750 Mg Tab.Chew) 750 mg PO Q4H PRN PRN Reason: Heartburn Capsaicin (Capsaicin 0.025% Cream 60 Gm Tube) 1 appl TOPICAL QID PRN; Protocol PRN Reason: Pain, Moderate(Pain Scale 4-6) Last Admin: 03/05/24 09:29 Dose: 1 appl Documented By: TRISTON Enoxaparin Sodium (Enoxaparin Sodium 40 Mg/0.4 Ml Syringe) 40 mg SUBCUT Q24H [facility] Last Admin: 03/05/24 14:50 Dose: 40 mg Documented By: TRISTON Fluticasone/Umeclidinium/Vilanterol (Fluticasone/Umeclidinium/Vilanterol 100/62.5/25 Blst.W.Dev) 1 puff INHALE RDAILY [facility] Last Admin: 03/05/24 08:41 Dose: 1 puff Documented By: DEN Gabapentin (Gabapentin 100 Mg Capsule) 100 mg PO DAILY [facility] Last Admin: 03/05/24 09:21 Dose: 100 mg Documented By: TRISTON Magnesium Hydroxide (Milk Of Magnesia 30 Ml Oral.Susp) 30 ml PO DAILY PRN PRN Reason: Constipation Last Admin: 12/08/23 08:25 Dose: 30 ml Documented By: AUDI Melatonin (Melatonin 3 Mg Tablet) 6 mg PO BEDTIME PRN PRN Reason: Insomnia Last Admin: 03/02/24 21:37 Dose: 6 mg Documented By: JAYDE Trazodone HCl (Trazodone Hcl 50 Mg Tablet) 50 mg PO BEDTIME [facility] Last Admin: 03/05/24 20:19 Dose: 50 mg Documented By: ADAM Vitamin D (Cholecalciferol (Vitamin D3) 25 Mcg Tablet) 25 mcg PO DAILY [facility] Last Admin: 03/05/24 09:22 Dose: 25 mcg Documented By: TRISTON Labs 02/24/24 13:17 03/03/24 05:55 Assessment and Plan (1) Major neurocognitive disorder: Status: Acute Plan 83M PMH copd, htn, hld, dementia unspecified, prostate ca, sent in from assisted after inappropriate interaction with another female resident. 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 supervised eating neuropathic pain neurontin copd stable no exacerbation albuterol prn htn amldoipine. mild hyponatremia monitor weekly labs leukocytosis resolved hld statin dvt prophylaxis - lovenox Attending Dr. Chris dnr/dni reason for continued hospitalization:safe dispo planning, waiting for LTC placement, [facility] communicating with daughter for financial disclosure, no beds available at this time. Quality Stroke Does the patient have a stroke diagnosis?: No VTE Prior VTE?: No VTE Risk Level:: Medical - moderate - high VTE Device Contraindication: Treatment Not Indicated VTE Drug Contraindication: N/A - Med Ordered
[2024-03-06 07:30] VITALS: BP 156/67; PULSE 69; RESP 18; TEMP 36.5; O2SAT 93
[2024-03-06] MEDS: Fluticasone/Umeclidinium/Vilanterol 100/62.5/25 BLST.W.DEV 1 PUFF INHALE (08:45)
[2024-03-06 08:46] VITALS: PULSE 71; RESP 15; O2SAT 98
--- NOTE | 2024-03-06 08:51 | MHC.CM.PN ---
Addendum entered by Nieves Mustafa RN 03/06/24 12:55: CM spoke w/ Rayne, who plans to bring documentation of transfer of home to [facility] tomorrow. Continues to wait for requested letter from social security. [facility] liaison updated. CM will continue to follow. Original Note: CM LM for daughter/HCP Rayne to follow up on request for financial documents.
[2024-03-06] MEDS: Atorvastatin Calcium 20 MG TABLET PO (09:11)
[2024-03-06] MEDS: Acetaminophen 325 MG TABLET 650 MG PO ×3 (09:11→21:39)
[2024-03-06] MEDS: Cholecalciferol (Vitamin D3) 25 MCG TABLET PO (09:11)
[2024-03-06] MEDS: Gabapentin 100 MG CAPSULE PO (09:12)
[2024-03-06] MEDS: Aspirin Enteric Coated 81 MG TABLET.DR PO (09:12)
[2024-03-06] MEDS: amLODIPine Besylate 5 MG TABLET PO (09:12)
[2024-03-06] MEDS: Enoxaparin Sodium 40 MG/0.4 ML SYRINGE SUBCUT (14:15)
[2024-03-06 15:26] VITALS: BP 127/60; PULSE 52; RESP 20; TEMP 36.8; O2SAT 98
[2024-03-06 19:20] VITALS: BP 130/70; PULSE 69; RESP 20; TEMP 36.9; O2SAT 97
[2024-03-06] MEDS: traZODone HCL 50 MG TABLET PO (21:39)
[2024-03-06] MEDS: Melatonin 3 MG TABLET 6 MG PO (21:39)
[2024-03-07 04:00] VITALS: BP 130/63; PULSE 61; RESP 18; TEMP 36.4; O2SAT 96
[2024-03-07 07:28] VITALS: BP 130/90; PULSE 80; RESP 16; TEMP 36.9; O2SAT 94
[2024-03-07] MEDS: Gabapentin 100 MG CAPSULE PO (07:38)
[2024-03-07] MEDS: Aspirin Enteric Coated 81 MG TABLET.DR PO (07:39)
[2024-03-07] MEDS: Acetaminophen 325 MG TABLET 650 MG PO ×2 (07:39→20:35)
[2024-03-07] MEDS: Atorvastatin Calcium 20 MG TABLET PO (07:39)
[2024-03-07] MEDS: amLODIPine Besylate 5 MG TABLET PO (07:39)
[2024-03-07] MEDS: Cholecalciferol (Vitamin D3) 25 MCG TABLET PO (07:39)
[2024-03-07 08:25] VITALS: PULSE 80; RESP 16; O2SAT 95
[2024-03-07] MEDS: Fluticasone/Umeclidinium/Vilanterol 100/62.5/25 BLST.W.DEV 1 PUFF INHALE (08:25)
--- NOTE | 2024-03-07 11:51 | HO.PM.IMPN ---
Subjective Subjective Date of Service: 03/07/24 Interval History: Being followed for placement, tolerating diet, Offers no acute complaints No acute events overnight. Review of Systems Unable to obtain due to dementia. Physical Exam Vital Signs: Vital Signs: Last Vital Signs Temp 98.4 F 03/07/24 07:28 Pulse 80 03/07/24 08:25 Resp 16 03/07/24 08:25 BP 130/90 H 03/07/24 07:28 Pulse Ox 94 03/07/24 07:28 O2 Del Method Room Air 03/07/24 07:28 O2 Flow Rate 3 12/22/23 20:00 BMI result Body Mass Index 28.0 Const: Other: General: Awake ,alert, no acute distress No JVD Resp: CTA bilateral CVS: S1,S2,RRR GI: +BS, NT, no distention Skin: No rash Neuro: motor grossly intact, oriented to self Psych: Poor insight Objective Data Active Medications Acetaminophen (Acetaminophen 325 Mg Tablet) 650 mg PO Q6H PRN PRN Reason: Pain, Mild (Pain Scale 1-3), fever or headache Last Admin: 03/06/24 21:39 Dose: 650 mg Documented By: JAYDE Acetaminophen (Acetaminophen 325 Mg Tablet) 650 mg PO BID [facility] Last Admin: 03/07/24 07:39 Dose: 650 mg Documented By: GLORIA Albuterol Sulfate (Albuterol Sulfate 90 Mcg 8 Gm Inhaler) 2 puff INHALE RQ6H PRN PRN Reason: sob Last Admin: 02/25/24 14:23 Dose: 2 puff Documented By: KAYLEIGH Amlodipine Besylate (Amlodipine Besylate 5 Mg Tablet) 5 mg PO DAILY [facility]; Protocol Last Admin: 03/07/24 07:39 Dose: 5 mg Documented By: GLORIA Aspirin (Aspirin Enteric Coated 81 Mg Tablet.) 81 mg PO DAILY [facility] Last Admin: 03/07/24 07:39 Dose: 81 mg Documented By: GLORIA Atorvastatin Calcium (Atorvastatin Calcium 20 Mg Tablet) 20 mg PO DAILY [facility] Last Admin: 03/07/24 07:39 Dose: 20 mg Documented By: GLORIA Calcium Carbonate (Calcium Carbonate 750 Mg Tab.Chew) 750 mg PO Q4H PRN PRN Reason: Heartburn Capsaicin (Capsaicin 0.025% Cream 60 Gm Tube) 1 appl TOPICAL QID PRN; Protocol PRN Reason: Pain, Moderate(Pain Scale 4-6) Last Admin: 03/05/24 09:29 Dose: 1 appl Documented By: TRISTON Enoxaparin Sodium (Enoxaparin Sodium 40 Mg/0.4 Ml Syringe) 40 mg SUBCUT Q24H [facility] Last Admin: 03/06/24 14:15 Dose: 40 mg Documented By: TRISTON Fluticasone/Umeclidinium/Vilanterol (Fluticasone/Umeclidinium/Vilanterol 100/62.5/25 Blst.W.Dev) 1 puff INHALE RDAILY [facility] Last Admin: 03/07/24 08:25 Dose: 1 puff Documented By: KAYLEIGH Gabapentin (Gabapentin 100 Mg Capsule) 100 mg PO DAILY [facility] Last Admin: 03/07/24 07:38 Dose: 100 mg Documented By: GLORIA Magnesium Hydroxide (Milk Of Magnesia 30 Ml Oral.Susp) 30 ml PO DAILY PRN PRN Reason: Constipation Last Admin: 12/08/23 08:25 Dose: 30 ml Documented By: AUDI Melatonin (Melatonin 3 Mg Tablet) 6 mg PO BEDTIME PRN PRN Reason: Insomnia Last Admin: 03/06/24 21:39 Dose: 6 mg Documented By: JAYDE Trazodone HCl (Trazodone Hcl 50 Mg Tablet) 50 mg PO BEDTIME [facility] Last Admin: 03/06/24 21:39 Dose: 50 mg Documented By: JAYDE Vitamin D (Cholecalciferol (Vitamin D3) 25 Mcg Tablet) 25 mcg PO DAILY [facility] Last Admin: 03/07/24 07:39 Dose: 25 mcg Documented By: GLORIA Labs 02/24/24 13:17 03/03/24 05:55 Assessment and Plan (1) Left knee pain: Status: Acute (2) Cognitive disorder: Status: Acute Plan 83M PMH copd, htn, hld, dementia unspecified, prostate ca, sent in from senior living after inappropriate interaction with another female resident. 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 supervised eating neuropathic pain neurontin copd stable no exacerbation albuterol prn htn amldoipine. mild hyponatremia monitor weekly labs leukocytosis resolved hld statin dvt prophylaxis - lovenox dnr/dni reason for continued hospitalization:safe dispo planning, waiting for LTC placement, [facility] communicating with daughter for financial disclosure, no beds available at this time. Quality Stroke Does the patient have a stroke diagnosis?: No VTE Prior VTE?: No VTE Risk Level:: Medical - moderate - high VTE Device Contraindication: Treatment Not Indicated VTE Drug Contraindication: N/A - Med Ordered
[2024-03-07 15:09] VITALS: BP 128/59; PULSE 69; RESP 20; TEMP 36.4; O2SAT 96
[2024-03-07] MEDS: Enoxaparin Sodium 40 MG/0.4 ML SYRINGE SUBCUT (15:48)
[2024-03-07 19:43] VITALS: BP 146/66; PULSE 62; RESP 20; TEMP 36.6; O2SAT 97
[2024-03-07] MEDS: traZODone HCL 50 MG TABLET PO (20:35)
[2024-03-08 04:00] VITALS: BP 126/83; PULSE 70; RESP 18; TEMP 36.6; O2SAT 96
[2024-03-08 08:00] VITALS: BP 131/60; PULSE 66; RESP 16; TEMP 36.9; O2SAT 97
[2024-03-08] MEDS: Gabapentin 100 MG CAPSULE PO (09:02)
[2024-03-08] MEDS: amLODIPine Besylate 5 MG TABLET PO (09:02)
[2024-03-08] MEDS: Acetaminophen 325 MG TABLET 650 MG PO ×2 (09:02→19:45)
[2024-03-08] MEDS: Atorvastatin Calcium 20 MG TABLET PO (09:02)
[2024-03-08] MEDS: Aspirin Enteric Coated 81 MG TABLET.DR PO (09:02)
[2024-03-08] MEDS: Cholecalciferol (Vitamin D3) 25 MCG TABLET PO (09:02)
[2024-03-08 09:04] VITALS: PULSE 66; RESP 16; O2SAT 96
[2024-03-08] MEDS: Fluticasone/Umeclidinium/Vilanterol 100/62.5/25 BLST.W.DEV 1 PUFF INHALE (09:04)
--- NOTE | 2024-03-08 11:12 | MHC.CM.PN ---
CM LM for daughter 03/07 & 03/08 to f/u on request for documentation.
[2024-03-08 15:17] VITALS: BP 137/64; PULSE 65; RESP 20; TEMP 36.6; O2SAT 97
[2024-03-08] MEDS: Enoxaparin Sodium 40 MG/0.4 ML SYRINGE SUBCUT (15:44)
--- NOTE | 2024-03-08 15:54 | HO.PM.IMPN ---
Subjective Subjective Date of Service: 03/08/24 Interval History: Seen and examined this morning Follow-up for placement No overnight events documented No specific complaints Review of Systems Difficult to obtain full ROS due to dementia Physical Exam Vital Signs: Vital Signs: Last Vital Signs Temp 98 F 03/08/24 15:17 Pulse 65 03/08/24 15:17 Resp 20 03/08/24 15:17 BP 137/64 03/08/24 15:17 Pulse Ox 97 03/08/24 15:17 O2 Del Method Room Air 03/08/24 15:17 O2 Flow Rate 3 12/22/23 20:00 BMI result Body Mass Index 28.0 Const: Other: sitting up in chair General: alert and awake Nutritional Appearance: average body habitus Resp: Effort & Inspection: normal respiratory effort, able to speak in complete sentences, no respiratory distress and no use of accessory muscles Cardio: Rate: regular rate Neuro: General: moves all extremities and CN's II-XI intact bilaterally Extrem: General: Yes no pedal edema Objective Data Active Medications Acetaminophen (Acetaminophen 325 Mg Tablet) 650 mg PO Q6H PRN PRN Reason: Pain, Mild (Pain Scale 1-3), fever or headache Last Admin: 03/06/24 21:39 Dose: 650 mg Documented By: JAYDE Acetaminophen (Acetaminophen 325 Mg Tablet) 650 mg PO BID [facility] Last Admin: 03/08/24 09:02 Dose: 650 mg Documented By: CAMILLA Albuterol Sulfate (Albuterol Sulfate 90 Mcg 8 Gm Inhaler) 2 puff INHALE RQ6H PRN PRN Reason: sob Last Admin: 02/25/24 14:23 Dose: 2 puff Documented By: KAYLEIGH Amlodipine Besylate (Amlodipine Besylate 5 Mg Tablet) 5 mg PO DAILY [facility]; Protocol Last Admin: 03/08/24 09:02 Dose: 5 mg Documented By: CAMILLA Aspirin (Aspirin Enteric Coated 81 Mg Tablet.) 81 mg PO DAILY [facility] Last Admin: 03/08/24 09:02 Dose: 81 mg Documented By: CAMILLA Atorvastatin Calcium (Atorvastatin Calcium 20 Mg Tablet) 20 mg PO DAILY [facility] Last Admin: 03/08/24 09:02 Dose: 20 mg Documented By: CAMILLA Calcium Carbonate (Calcium Carbonate 750 Mg Tab.Chew) 750 mg PO Q4H PRN PRN Reason: Heartburn Capsaicin (Capsaicin 0.025% Cream 60 Gm Tube) 1 appl TOPICAL QID PRN; Protocol PRN Reason: Pain, Moderate(Pain Scale 4-6) Last Admin: 03/05/24 09:29 Dose: 1 appl Documented By: TRISTON Enoxaparin Sodium (Enoxaparin Sodium 40 Mg/0.4 Ml Syringe) 40 mg SUBCUT Q24H [facility] Last Admin: 03/08/24 15:44 Dose: 40 mg Documented By: CAMILLA Fluticasone/Umeclidinium/Vilanterol (Fluticasone/Umeclidinium/Vilanterol 100/62.5/25 Blst.W.Dev) 1 puff INHALE RDAILY [facility] Last Admin: 03/08/24 09:04 Dose: 1 puff Documented By: REJI Gabapentin (Gabapentin 100 Mg Capsule) 100 mg PO DAILY [facility] Last Admin: 03/08/24 09:02 Dose: 100 mg Documented By: CAMILLA Magnesium Hydroxide (Milk Of Magnesia 30 Ml Oral.Susp) 30 ml PO DAILY PRN PRN Reason: Constipation Last Admin: 12/08/23 08:25 Dose: 30 ml Documented By: AUDI Melatonin (Melatonin 3 Mg Tablet) 6 mg PO BEDTIME PRN PRN Reason: Insomnia Last Admin: 03/06/24 21:39 Dose: 6 mg Documented By: JAYDE Trazodone HCl (Trazodone Hcl 50 Mg Tablet) 50 mg PO BEDTIME [facility] Last Admin: 03/07/24 20:35 Dose: 50 mg Documented By: JAKE Vitamin D (Cholecalciferol (Vitamin D3) 25 Mcg Tablet) 25 mcg PO DAILY [facility] Last Admin: 03/08/24 09:02 Dose: 25 mcg Documented By: CAMILLA Labs 02/24/24 13:17 03/03/24 05:55 Assessment and Plan (1) Major neurocognitive disorder: Status: Acute Plan 83M PMH copd, htn, hld, dementia unspecified, prostate ca, sent in from intermediate after inappropriate interaction with another female resident. 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 supervised eating neuropathic pain neurontin copd stable no exacerbation albuterol prn htn amldoipine. mild hyponatremia monitor weekly labs leukocytosis resolved hld statin dvt prophylaxis - lovenox dnr/dni reason for continued hospitalization:safe dispo planning, waiting for LTC placement, [facility] communicating with daughter for financial disclosure, no beds available at this time. Quality Stroke Does the patient have a stroke diagnosis?: No VTE Prior VTE?: No VTE Risk Level:: Medical - moderate - high VTE Device Contraindication: Treatment Not Indicated VTE Drug Contraindication: N/A - Med Ordered
[2024-03-08 19:19] VITALS: BP 131/60; PULSE 68; RESP 20; TEMP 36.6; O2SAT 96
[2024-03-08] MEDS: traZODone HCL 50 MG TABLET PO (19:45)
[2024-03-09 03:36] VITALS: BP 134/73; PULSE 66; RESP 18; TEMP 36.6; O2SAT 97
[2024-03-09 07:47] VITALS: BP 146/67; PULSE 79; RESP 18; TEMP 36.7; O2SAT 97
[2024-03-09] MEDS: amLODIPine Besylate 5 MG TABLET PO (09:38)
[2024-03-09] MEDS: Gabapentin 100 MG CAPSULE PO (09:38)
[2024-03-09] MEDS: Acetaminophen 325 MG TABLET 650 MG PO ×2 (09:38→19:44)
[2024-03-09] MEDS: Atorvastatin Calcium 20 MG TABLET PO (09:38)
[2024-03-09] MEDS: Cholecalciferol (Vitamin D3) 25 MCG TABLET PO (09:38)
[2024-03-09] MEDS: Aspirin Enteric Coated 81 MG TABLET.DR PO (09:38)
--- NOTE | 2024-03-09 12:21 | MHC.CM.PN ---
Moriah jovel obtained from public record and sent to [facility] for review. Awaiting confirmation of ss benefits. LM for daughter to follow up on request. CM will continue to follow.
--- NOTE | 2024-03-09 14:51 | HO.PM.IMPN ---
Subjective Subjective Date of Service: 03/09/24 Interval History: seen and examined this morning follow up for placement no overnight events no specific complaints Review of Systems Difficult to obtain full ROS due to dementia Physical Exam Vital Signs: Vital Signs: Last Vital Signs Temp 98.0 F 03/09/24 07:47 Pulse 79 03/09/24 07:47 Resp 18 03/09/24 07:47 BP 146/67 H 03/09/24 07:47 Pulse Ox 97 03/09/24 07:47 O2 Del Method Room Air 03/09/24 07:47 O2 Flow Rate 3 12/22/23 20:00 BMI result Body Mass Index 28.0 Const: Other: sitting up in chair General: alert and awake Nutritional Appearance: average body habitus Resp: Effort & Inspection: normal respiratory effort, able to speak in complete sentences, no respiratory distress and no use of accessory muscles Cardio: Rate: regular rate Neuro: General: moves all extremities and CN's II-XI intact bilaterally Extrem: General: Yes no pedal edema Objective Data Active Medications Acetaminophen (Acetaminophen 325 Mg Tablet) 650 mg PO Q6H PRN PRN Reason: Pain, Mild (Pain Scale 1-3), fever or headache Last Admin: 03/06/24 21:39 Dose: 650 mg Documented By: JAYDE Acetaminophen (Acetaminophen 325 Mg Tablet) 650 mg PO BID [facility] Last Admin: 03/09/24 09:38 Dose: 650 mg Documented By: CAMILLA Albuterol Sulfate (Albuterol Sulfate 90 Mcg 8 Gm Inhaler) 2 puff INHALE RQ6H PRN PRN Reason: sob Last Admin: 02/25/24 14:23 Dose: 2 puff Documented By: KAYLEIGH Amlodipine Besylate (Amlodipine Besylate 5 Mg Tablet) 5 mg PO DAILY [facility]; Protocol Last Admin: 03/09/24 09:38 Dose: 5 mg Documented By: CAMILLA Aspirin (Aspirin Enteric Coated 81 Mg Tablet.) 81 mg PO DAILY [facility] Last Admin: 03/09/24 09:38 Dose: 81 mg Documented By: CAMILLA Atorvastatin Calcium (Atorvastatin Calcium 20 Mg Tablet) 20 mg PO DAILY [facility] Last Admin: 03/09/24 09:38 Dose: 20 mg Documented By: CAMILLA Calcium Carbonate (Calcium Carbonate 750 Mg Tab.Chew) 750 mg PO Q4H PRN PRN Reason: Heartburn Capsaicin (Capsaicin 0.025% Cream 60 Gm Tube) 1 appl TOPICAL QID PRN; Protocol PRN Reason: Pain, Moderate(Pain Scale 4-6) Last Admin: 03/05/24 09:29 Dose: 1 appl Documented By: TRISTON Enoxaparin Sodium (Enoxaparin Sodium 40 Mg/0.4 Ml Syringe) 40 mg SUBCUT Q24H [facility] Last Admin: 03/08/24 15:44 Dose: 40 mg Documented By: CAMILLA Fluticasone/Umeclidinium/Vilanterol (Fluticasone/Umeclidinium/Vilanterol 100/62.5/25 Blst.W.Dev) 1 puff INHALE RDAILY [facility] Last Admin: 03/09/24 08:03 Dose: Not Given Documented By: KAYLEIGH Non-Admin Reason: Patient Asleep Gabapentin (Gabapentin 100 Mg Capsule) 100 mg PO DAILY [facility] Last Admin: 03/09/24 09:38 Dose: 100 mg Documented By: CAMILLA Magnesium Hydroxide (Milk Of Magnesia 30 Ml Oral.Susp) 30 ml PO DAILY PRN PRN Reason: Constipation Last Admin: 12/08/23 08:25 Dose: 30 ml Documented By: AUDI Melatonin (Melatonin 3 Mg Tablet) 6 mg PO BEDTIME PRN PRN Reason: Insomnia Last Admin: 03/06/24 21:39 Dose: 6 mg Documented By: JAYDE Trazodone HCl (Trazodone Hcl 50 Mg Tablet) 50 mg PO BEDTIME [facility] Last Admin: 03/08/24 19:45 Dose: 50 mg Documented By: TRISTAN Vitamin D (Cholecalciferol (Vitamin D3) 25 Mcg Tablet) 25 mcg PO DAILY [facility] Last Admin: 03/09/24 09:38 Dose: 25 mcg Documented By: CAMILLA Labs 02/24/24 13:17 03/03/24 05:55 Assessment and Plan (1) Major neurocognitive disorder: Status: Acute Plan 83M PMH copd, htn, hld, dementia unspecified, prostate ca, sent in from residential after inappropriate interaction with another female resident. 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 supervised eating neuropathic pain neurontin copd stable no exacerbation albuterol prn htn amldoipine. mild hyponatremia monitor weekly labs leukocytosis resolved hld statin dvt prophylaxis - lovenox dnr/dni reason for continued hospitalization:safe dispo planning, waiting for LTC placement, [facility] communicating with daughter for financial disclosure, no beds available at this time. Quality Stroke Does the patient have a stroke diagnosis?: No VTE Prior VTE?: No VTE Risk Level:: Medical - moderate - high VTE Device Contraindication: Treatment Not Indicated VTE Drug Contraindication: N/A - Med Ordered
[2024-03-09 15:22] VITALS: BP 149/65; PULSE 62; RESP 20; TEMP 36.2; O2SAT 98
[2024-03-09] MEDS: Enoxaparin Sodium 40 MG/0.4 ML SYRINGE SUBCUT (15:30)
[2024-03-09 19:25] VITALS: BP 123/80; PULSE 62; RESP 20; TEMP 36.7; O2SAT 97
[2024-03-09] MEDS: traZODone HCL 50 MG TABLET PO (19:44)
[2024-03-10 07:39] VITALS: BP 148/67; PULSE 67; RESP 18; TEMP 36.6; O2SAT 98
[2024-03-10] MEDS: Acetaminophen 325 MG TABLET 650 MG PO ×2 (09:41→19:31)
[2024-03-10] MEDS: amLODIPine Besylate 5 MG TABLET PO (09:42)
[2024-03-10] MEDS: Cholecalciferol (Vitamin D3) 25 MCG TABLET PO (09:42)
[2024-03-10] MEDS: Gabapentin 100 MG CAPSULE PO (09:42)
[2024-03-10] MEDS: Aspirin Enteric Coated 81 MG TABLET.DR PO (09:42)
[2024-03-10] MEDS: Atorvastatin Calcium 20 MG TABLET PO (09:42)
--- NOTE | 2024-03-10 15:24 | HO.PM.IMPN ---
Subjective Subjective Date of Service: 03/10/24 Interval History: seen and examined this morning follow up for placement no overnight events no specific complaints Review of Systems denies chest pain or sob Physical Exam Vital Signs: Vital Signs: Last Vital Signs Temp 97.8 F 03/10/24 07:39 Pulse 67 03/10/24 07:39 Resp 18 03/10/24 07:39 BP 148/67 H 03/10/24 07:39 Pulse Ox 98 03/10/24 07:39 O2 Del Method Room Air 03/10/24 07:39 O2 Flow Rate 3 12/22/23 20:00 BMI result Body Mass Index 28.0 Const: Other: sitting up in chair General: alert and awake Nutritional Appearance: average body habitus Resp: Effort & Inspection: normal respiratory effort, able to speak in complete sentences, no respiratory distress and no use of accessory muscles Cardio: Rate: regular rate Neuro: General: moves all extremities and CN's II-XI intact bilaterally Extrem: General: Yes no pedal edema Objective Data Active Medications Acetaminophen (Acetaminophen 325 Mg Tablet) 650 mg PO Q6H PRN PRN Reason: Pain, Mild (Pain Scale 1-3), fever or headache Last Admin: 03/06/24 21:39 Dose: 650 mg Documented By: JAYDE Acetaminophen (Acetaminophen 325 Mg Tablet) 650 mg PO BID [facility] Last Admin: 03/10/24 09:41 Dose: 650 mg Documented By: TRISTON Albuterol Sulfate (Albuterol Sulfate 90 Mcg 8 Gm Inhaler) 2 puff INHALE RQ6H PRN PRN Reason: sob Last Admin: 02/25/24 14:23 Dose: 2 puff Documented By: KAYLEIGH Amlodipine Besylate (Amlodipine Besylate 5 Mg Tablet) 5 mg PO DAILY [facility]; Protocol Last Admin: 03/10/24 09:42 Dose: 5 mg Documented By: TRISTON Aspirin (Aspirin Enteric Coated 81 Mg Tablet.) 81 mg PO DAILY [facility] Last Admin: 03/10/24 09:42 Dose: 81 mg Documented By: TRISTON Atorvastatin Calcium (Atorvastatin Calcium 20 Mg Tablet) 20 mg PO DAILY [facility] Last Admin: 03/10/24 09:42 Dose: 20 mg Documented By: TRISTON Calcium Carbonate (Calcium Carbonate 750 Mg Tab.Chew) 750 mg PO Q4H PRN PRN Reason: Heartburn Capsaicin (Capsaicin 0.025% Cream 60 Gm Tube) 1 appl TOPICAL QID PRN; Protocol PRN Reason: Pain, Moderate(Pain Scale 4-6) Last Admin: 03/05/24 09:29 Dose: 1 appl Documented By: TRISTON Enoxaparin Sodium (Enoxaparin Sodium 40 Mg/0.4 Ml Syringe) 40 mg SUBCUT Q24H [facility] Last Admin: 03/09/24 15:30 Dose: 40 mg Documented By: CAMILLA Fluticasone/Umeclidinium/Vilanterol (Fluticasone/Umeclidinium/Vilanterol 100/62.5/25 Blst.W.Dev) 1 puff INHALE RDAILY [facility] Last Admin: 03/10/24 07:49 Dose: Not Given Documented By: YAYO Non-Admin Reason: Patient Asleep Gabapentin (Gabapentin 100 Mg Capsule) 100 mg PO DAILY [facility] Last Admin: 03/10/24 09:42 Dose: 100 mg Documented By: TRISTON Magnesium Hydroxide (Milk Of Magnesia 30 Ml Oral.Susp) 30 ml PO DAILY PRN PRN Reason: Constipation Last Admin: 12/08/23 08:25 Dose: 30 ml Documented By: AUDI Melatonin (Melatonin 3 Mg Tablet) 6 mg PO BEDTIME PRN PRN Reason: Insomnia Last Admin: 03/06/24 21:39 Dose: 6 mg Documented By: JAYDE Trazodone HCl (Trazodone Hcl 50 Mg Tablet) 50 mg PO BEDTIME [facility] Last Admin: 03/09/24 19:44 Dose: 50 mg Documented By: TRISTAN Vitamin D (Cholecalciferol (Vitamin D3) 25 Mcg Tablet) 25 mcg PO DAILY [facility] Last Admin: 03/10/24 09:42 Dose: 25 mcg Documented By: TRISTON Labs 02/24/24 13:17 03/03/24 05:55 Assessment and Plan (1) Major neurocognitive disorder: Status: Acute Plan 83M PMH copd, htn, hld, dementia unspecified, prostate ca, sent in from assisted after inappropriate interaction with another female resident. 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 supervised eating neuropathic pain neurontin copd stable no exacerbation albuterol prn htn amldoipine. mild hyponatremia monitor weekly labs leukocytosis resolved hld statin dvt prophylaxis - lovenox dnr/dni reason for continued hospitalization:safe dispo planning, waiting for LTC placement, [facility] communicating with daughter for financial disclosure, no beds available at this time. Quality Stroke Does the patient have a stroke diagnosis?: No VTE Prior VTE?: No VTE Risk Level:: Medical - moderate - high VTE Device Contraindication: Treatment Not Indicated VTE Drug Contraindication: N/A - Med Ordered
[2024-03-10] MEDS: Enoxaparin Sodium 40 MG/0.4 ML SYRINGE SUBCUT (15:27)
[2024-03-10 15:34] VITALS: BP 125/68; PULSE 53; RESP 18; TEMP 36.2; O2SAT 99
[2024-03-10 19:14] VITALS: BP 129/61; PULSE 55; RESP 16; TEMP 36.3; O2SAT 98
[2024-03-10] MEDS: traZODone HCL 50 MG TABLET PO (19:30)
[2024-03-11 04:00] VITALS: BP 123/54; PULSE 60; RESP 16; TEMP 36.6; O2SAT 96
[2024-03-11 07:39] VITALS: BP 132/64; PULSE 73; RESP 20; TEMP 36.7; O2SAT 97
[2024-03-11 08:17] VITALS: PULSE 78; RESP 18; O2SAT 95
[2024-03-11] MEDS: Fluticasone/Umeclidinium/Vilanterol 100/62.5/25 BLST.W.DEV 1 PUFF INHALE (08:17)
[2024-03-11] MEDS: Atorvastatin Calcium 20 MG TABLET PO (09:18)
[2024-03-11] MEDS: Cholecalciferol (Vitamin D3) 25 MCG TABLET PO (09:18)
[2024-03-11] MEDS: Acetaminophen 325 MG TABLET 650 MG PO ×3 (09:18→21:34)
[2024-03-11] MEDS: Aspirin Enteric Coated 81 MG TABLET.DR PO (09:18)
[2024-03-11] MEDS: Gabapentin 100 MG CAPSULE PO (09:19)
[2024-03-11 09:20] VITALS: BP 131/65
[2024-03-11] MEDS: amLODIPine Besylate 5 MG TABLET PO (09:20)
[2024-03-11] MEDS: Capsaicin 0.025% Cream 60 GM TUBE 1 APPL TOPICAL (10:10)
--- NOTE | 2024-03-11 12:42 | P.PNIM_ITS ---
Subjective Subjective Date of Service: 03/11/24 Interval History: Seen and examined this morning Follow-up for placement No overnight events Reporting some left knee pain Review of Systems reviewed, reporting left knee pain, otherwise negative ROS Physical Exam 2 Vital Signs: Vital Signs: Last Vital Signs Temp 98.1 F 03/11/24 07:39 Pulse 78 03/11/24 08:17 Resp 18 03/11/24 08:17 BP 131/65 03/11/24 09:20 Pulse Ox 97 03/11/24 07:39 O2 Del Method Room Air 03/11/24 07:39 O2 Flow Rate 3 12/22/23 20:00 BMI result Body Mass Index 28.0 Const: Other: sitting up in chair General: alert and awake Nutritional Appearance: average body habitus Resp: Effort & Inspection: normal respiratory effort, able to speak in complete sentences, no respiratory distress and no use of accessory muscles Cardio: Rate: regular rate Neuro: General: moves all extremities and CN's II-XI intact bilaterally Extrem: General: Yes no pedal edema Objective Data Active Medications Acetaminophen (Acetaminophen 325 Mg Tablet) 650 mg PO Q6H PRN PRN Reason: Pain, Mild (Pain Scale 1-3), fever or headache Last Admin: 03/06/24 21:39 Dose: 650 mg Documented By: JAYDE Acetaminophen (Acetaminophen 325 Mg Tablet) 650 mg PO BID [facility] Last Admin: 03/11/24 09:18 Dose: 650 mg Documented By: TRISTON Albuterol Sulfate (Albuterol Sulfate 90 Mcg 8 Gm Inhaler) 2 puff INHALE RQ6H PRN PRN Reason: sob Last Admin: 02/25/24 14:23 Dose: 2 puff Documented By: KAYLEIGH Amlodipine Besylate (Amlodipine Besylate 5 Mg Tablet) 5 mg PO DAILY [facility]; Protocol Last Admin: 03/11/24 09:20 Dose: 5 mg Documented By: TRISOTN Aspirin (Aspirin Enteric Coated 81 Mg Tablet.) 81 mg PO DAILY [facility] Last Admin: 03/11/24 09:18 Dose: 81 mg Documented By: TRISTON Atorvastatin Calcium (Atorvastatin Calcium 20 Mg Tablet) 20 mg PO DAILY [facility] Last Admin: 03/11/24 09:18 Dose: 20 mg Documented By: TRISTON Calcium Carbonate (Calcium Carbonate 750 Mg Tab.Chew) 750 mg PO Q4H PRN PRN Reason: Heartburn Capsaicin (Capsaicin 0.025% Cream 60 Gm Tube) 1 appl TOPICAL QID PRN; Protocol PRN Reason: Pain, Moderate(Pain Scale 4-6) Last Admin: 03/11/24 10:10 Dose: 1 appl Documented By: COOKIE Enoxaparin Sodium (Enoxaparin Sodium 40 Mg/0.4 Ml Syringe) 40 mg SUBCUT Q24H [facility] Last Admin: 03/10/24 15:27 Dose: 40 mg Documented By: TRISTON Fluticasone/Umeclidinium/Vilanterol (Fluticasone/Umeclidinium/Vilanterol 100/62.5/25 Blst.W.Dev) 1 puff INHALE RDAILY [facility] Last Admin: 03/11/24 08:17 Dose: 1 puff Documented By: YAYO Gabapentin (Gabapentin 100 Mg Capsule) 100 mg PO DAILY [facility] Last Admin: 03/11/24 09:19 Dose: 100 mg Documented By: TRISTON Magnesium Hydroxide (Milk Of Magnesia 30 Ml Oral.Susp) 30 ml PO DAILY PRN PRN Reason: Constipation Last Admin: 12/08/23 08:25 Dose: 30 ml Documented By: AUDI Melatonin (Melatonin 3 Mg Tablet) 6 mg PO BEDTIME PRN PRN Reason: Insomnia Last Admin: 03/06/24 21:39 Dose: 6 mg Documented By: JAYDE Trazodone HCl (Trazodone Hcl 50 Mg Tablet) 50 mg PO BEDTIME [facility] Last Admin: 03/10/24 19:30 Dose: 50 mg Documented By: TRISTAN Vitamin D (Cholecalciferol (Vitamin D3) 25 Mcg Tablet) 25 mcg PO DAILY [facility] Last Admin: 03/11/24 09:18 Dose: 25 mcg Documented By: TRISTON Labs 02/24/24 13:17 03/03/24 05:55 Assessment and Plan (1) Major neurocognitive disorder: Status: Acute Plan 83M PMH copd, htn, hld, dementia unspecified, prostate ca, sent in from detention after inappropriate interaction with another female resident. 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 supervised eating neuropathic pain neurontin copd stable no exacerbation albuterol prn htn amldoipine. mild hyponatremia monitor weekly labs leukocytosis resolved hld statin dvt prophylaxis - lovenox dnr/dni reason for continued hospitalization:safe dispo planning, waiting for LTC placement, [facility] communicating with daughter for financial disclosure, no beds available at this time. Quality Stroke Does the patient have a stroke diagnosis?: No VTE Prior VTE?: No VTE Risk Level:: Medical - moderate - high VTE Device Contraindication: Treatment Not Indicated VTE Drug Contraindication: N/A - Med Ordered
[2024-03-11] MEDS: Enoxaparin Sodium 40 MG/0.4 ML SYRINGE SUBCUT (14:10)
[2024-03-11 15:55] VITALS: BP 119/58; PULSE 60; RESP 20; TEMP 36.7; O2SAT 97
[2024-03-11] MEDS: Lidocaine 4 % Patch ADH..PATCH 1 PATCH TRANSDERMA (17:09)
[2024-03-11 19:27] VITALS: BP 120/57; PULSE 64; RESP 18; TEMP 36.5; O2SAT 97
[2024-03-11] MEDS: Melatonin 3 MG TABLET 6 MG PO (21:34)
[2024-03-11] MEDS: traZODone HCL 50 MG TABLET PO (21:34)
[2024-03-12 03:32] VITALS: BP 115/56; PULSE 59; RESP 18; TEMP 36.6; O2SAT 96
[2024-03-12] MEDS: Cholecalciferol (Vitamin D3) 25 MCG TABLET PO (07:28)
[2024-03-12] MEDS: Atorvastatin Calcium 20 MG TABLET PO (07:28)
[2024-03-12] MEDS: Gabapentin 100 MG CAPSULE PO (07:28)
[2024-03-12] MEDS: amLODIPine Besylate 5 MG TABLET PO (07:28)
[2024-03-12] MEDS: Lidocaine 4 % Patch ADH..PATCH 1 PATCH TRANSDERMA (07:29)
[2024-03-12] MEDS: Acetaminophen 325 MG TABLET 650 MG PO ×3 (07:29→20:45)
[2024-03-12] MEDS: Aspirin Enteric Coated 81 MG TABLET.DR PO (07:29)
[2024-03-12 07:36] VITALS: BP 121/59; PULSE 64; RESP 14; TEMP 36.6; O2SAT 98
--- NOTE | 2024-03-12 07:45 | HO.PM.IMPN ---
Subjective Subjective Date of Service: 03/12/24 Interval History: Seen and examined this morning Follow-up for placement No overnight events Review of Systems reviewed, reporting left knee pain, otherwise negative ROS Physical Exam Vital Signs: Vital Signs: Last Vital Signs Temp 97.9 F 03/12/24 07:36 Pulse 64 03/12/24 07:36 Resp 14 03/12/24 07:36 BP 121/59 L 03/12/24 07:36 Pulse Ox 98 03/12/24 07:36 O2 Del Method Room Air 03/12/24 07:36 O2 Flow Rate 3 12/22/23 20:00 BMI result Body Mass Index 28.0 alert and confused LSCTA soft abd Objective Data Active Medications Acetaminophen (Acetaminophen 325 Mg Tablet) 650 mg PO Q6H PRN PRN Reason: Pain, Mild (Pain Scale 1-3), fever or headache Last Admin: 03/11/24 14:10 Dose: 650 mg Documented By: COOKIE Acetaminophen (Acetaminophen 325 Mg Tablet) 650 mg PO BID [facility] Last Admin: 03/12/24 07:29 Dose: 650 mg Documented By: WAGNER Albuterol Sulfate (Albuterol Sulfate 90 Mcg 8 Gm Inhaler) 2 puff INHALE RQ6H PRN PRN Reason: sob Last Admin: 02/25/24 14:23 Dose: 2 puff Documented By: KAYLEIGH Amlodipine Besylate (Amlodipine Besylate 5 Mg Tablet) 5 mg PO DAILY [facility]; Protocol Last Admin: 03/12/24 07:28 Dose: 5 mg Documented By: WAGNER Aspirin (Aspirin Enteric Coated 81 Mg Tablet.) 81 mg PO DAILY [facility] Last Admin: 03/12/24 07:29 Dose: 81 mg Documented By: WAGNER Atorvastatin Calcium (Atorvastatin Calcium 20 Mg Tablet) 20 mg PO DAILY [facility] Last Admin: 03/12/24 07:28 Dose: 20 mg Documented By: WAGNER Calcium Carbonate (Calcium Carbonate 750 Mg Tab.Chew) 750 mg PO Q4H PRN PRN Reason: Heartburn Capsaicin (Capsaicin 0.025% Cream 60 Gm Tube) 1 appl TOPICAL QID PRN; Protocol PRN Reason: Pain, Moderate(Pain Scale 4-6) Last Admin: 03/11/24 10:10 Dose: 1 appl Documented By: COOKIE Enoxaparin Sodium (Enoxaparin Sodium 40 Mg/0.4 Ml Syringe) 40 mg SUBCUT Q24H [facility] Last Admin: 03/11/24 14:10 Dose: 40 mg Documented By: COOKIE Fluticasone/Umeclidinium/Vilanterol (Fluticasone/Umeclidinium/Vilanterol 100/62.5/25 Blst.W.Dev) 1 puff INHALE RDAILY [facility] Last Admin: 03/11/24 08:17 Dose: 1 puff Documented By: YAYO Gabapentin (Gabapentin 100 Mg Capsule) 100 mg PO DAILY [facility] Last Admin: 03/12/24 07:28 Dose: 100 mg Documented By: WAGNER Lidocaine (Lidocaine 4 % Patch Adh..Patch) 1 patch TRANSDERMA DAILY [facility]; Protocol Last Admin: 03/12/24 07:29 Dose: 1 patch Documented By: WAGNER Magnesium Hydroxide (Milk Of Magnesia 30 Ml Oral.Susp) 30 ml PO DAILY PRN PRN Reason: Constipation Last Admin: 12/08/23 08:25 Dose: 30 ml Documented By: AUDI Melatonin (Melatonin 3 Mg Tablet) 6 mg PO BEDTIME PRN PRN Reason: Insomnia Last Admin: 03/11/24 21:34 Dose: 6 mg Documented By: VIRGINIA Trazodone HCl (Trazodone Hcl 50 Mg Tablet) 50 mg PO BEDTIME [facility] Last Admin: 03/11/24 21:34 Dose: 50 mg Documented By: VIRGINIA Vitamin D (Cholecalciferol (Vitamin D3) 25 Mcg Tablet) 25 mcg PO DAILY [facility] Last Admin: 03/12/24 07:28 Dose: 25 mcg Documented By: WAGNER Labs 02/24/24 13:17 03/03/24 05:55 Assessment and Plan (1) Major neurocognitive disorder: Status: Acute Plan 83M PMH copd, htn, hld, dementia unspecified, prostate ca, sent in from longterm after inappropriate interaction with another female resident. 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 supervised eating neuropathic pain neurontin copd stable no exacerbation albuterol prn htn amlodipine mild hyponatremia monitor weekly labs leukocytosis resolved hld statin dvt prophylaxis - lovenox dnr/dni reason for continued hospitalization:safe dispo planning, waiting for LTC placement, [facility] communicating with daughter for financial disclosure, no beds available at this time. Quality Stroke Does the patient have a stroke diagnosis?: No VTE Prior VTE?: No VTE Risk Level:: Medical - moderate - high VTE Device Contraindication: Treatment Not Indicated VTE Drug Contraindication: N/A - Med Ordered
[2024-03-12] MEDS: Fluticasone/Umeclidinium/Vilanterol 100/62.5/25 BLST.W.DEV 1 PUFF INHALE (08:38)
[2024-03-12 08:39] VITALS: PULSE 64; RESP 14; O2SAT 98
--- NOTE | 2024-03-12 10:33 | MHC.CM.PN ---
Addendum entered by Nieves Mustafa RN 03/12/24 11:56: Dee from [facility] updated on plan. Original Note: Daughter provided SSI documentation. Sent to [facility]. Awaiting response w/ next steps. CM will continue to follow.
[2024-03-12] MEDS: Enoxaparin Sodium 40 MG/0.4 ML SYRINGE SUBCUT (14:07)
--- NOTE | 2024-03-12 15:13 | MHC.CM.PN ---
[facility] unable to accept patient as transfer of condo was in 2021. CM called daughter/HCP Rayne to discuss potential plan of home w/ family and services, ? AF program. Daughter reports she is living in a separate apartment (not condo that patient transferred to her) under section 8 and is unable to house patient. She states the condo is in bad condition and not able to be lived in. CM director aware. Plan to re-address with daughter tomorrow.
[2024-03-12 15:47] VITALS: BP 133/60; PULSE 64; RESP 14; TEMP 36.7; O2SAT 97
[2024-03-12] MEDS: traZODone HCL 50 MG TABLET PO (20:46)
[2024-03-12] MEDS: Melatonin 3 MG TABLET 6 MG PO (20:46)
[2024-03-12 23:54] VITALS: BP 140/65; PULSE 57; RESP 18; TEMP 36.4; O2SAT 95
--- NOTE | 2024-03-13 07:24 | P.PNIM_ITS ---
Subjective Subjective Date of Service: 03/13/24 Interval History: Seen and examined this morning Follow-up for placement No overnight events Physical Exam 2 Vital Signs: Vital Signs: Last Vital Signs Temp 97.5 F 03/12/24 23:54 Pulse 57 03/12/24 23:54 Resp 18 03/12/24 23:54 BP 140/65 H 03/12/24 23:54 Pulse Ox 95 03/12/24 23:54 O2 Del Method Room Air 03/12/24 23:54 O2 Flow Rate 3 12/22/23 20:00 BMI result Body Mass Index 28.0 alert and confused oob to chair Objective Data Active Medications Acetaminophen (Acetaminophen 325 Mg Tablet) 650 mg PO Q6H PRN PRN Reason: Pain, Mild (Pain Scale 1-3), fever or headache Last Admin: 03/12/24 14:07 Dose: 650 mg Documented By: WAGNER Acetaminophen (Acetaminophen 325 Mg Tablet) 650 mg PO BID [facility] Last Admin: 03/12/24 20:45 Dose: 650 mg Documented By: LANGILPierre Albuterol Sulfate (Albuterol Sulfate 90 Mcg 8 Gm Inhaler) 2 puff INHALE RQ6H PRN PRN Reason: sob Last Admin: 02/25/24 14:23 Dose: 2 puff Documented By: KAYLEIGH Amlodipine Besylate (Amlodipine Besylate 5 Mg Tablet) 5 mg PO DAILY [facility]; Protocol Last Admin: 03/12/24 07:28 Dose: 5 mg Documented By: WAGNER Aspirin (Aspirin Enteric Coated 81 Mg Tablet.) 81 mg PO DAILY [facility] Last Admin: 03/12/24 07:29 Dose: 81 mg Documented By: WAGNER Atorvastatin Calcium (Atorvastatin Calcium 20 Mg Tablet) 20 mg PO DAILY [facility] Last Admin: 03/12/24 07:28 Dose: 20 mg Documented By: WAGNER Calcium Carbonate (Calcium Carbonate 750 Mg Tab.Chew) 750 mg PO Q4H PRN PRN Reason: Heartburn Capsaicin (Capsaicin 0.025% Cream 60 Gm Tube) 1 appl TOPICAL QID PRN; Protocol PRN Reason: Pain, Moderate(Pain Scale 4-6) Last Admin: 03/11/24 10:10 Dose: 1 appl Documented By: COOKIE Enoxaparin Sodium (Enoxaparin Sodium 40 Mg/0.4 Ml Syringe) 40 mg SUBCUT Q24H [facility] Last Admin: 03/12/24 14:07 Dose: 40 mg Documented By: WAGNER Fluticasone/Umeclidinium/Vilanterol (Fluticasone/Umeclidinium/Vilanterol 100/62.5/25 Blst.W.Dev) 1 puff INHALE RDAILY [facility] Last Admin: 03/12/24 08:38 Dose: 1 puff Documented By: REJI Gabapentin (Gabapentin 100 Mg Capsule) 100 mg PO DAILY [facility] Last Admin: 03/12/24 07:28 Dose: 100 mg Documented By: WAGNER Lidocaine (Lidocaine 4 % Patch Adh..Patch) 1 patch TRANSDERMA DAILY [facility]; Protocol Last Admin: 03/12/24 07:29 Dose: 1 patch Documented By: WAGNER Magnesium Hydroxide (Milk Of Magnesia 30 Ml Oral.Susp) 30 ml PO DAILY PRN PRN Reason: Constipation Last Admin: 12/08/23 08:25 Dose: 30 ml Documented By: AUDI Melatonin (Melatonin 3 Mg Tablet) 6 mg PO BEDTIME PRN PRN Reason: Insomnia Last Admin: 03/12/24 20:46 Dose: 6 mg Documented By: RONNIE Trazodone HCl (Trazodone Hcl 50 Mg Tablet) 50 mg PO BEDTIME [facility] Last Admin: 03/12/24 20:46 Dose: 50 mg Documented By: RONNIE Vitamin D (Cholecalciferol (Vitamin D3) 25 Mcg Tablet) 25 mcg PO DAILY [facility] Last Admin: 03/12/24 07:28 Dose: 25 mcg Documented By: WAGNER Labs 02/24/24 13:17 03/03/24 05:55 Assessment and Plan (1) Major neurocognitive disorder: Status: Acute Plan 83M PMH copd, htn, hld, dementia unspecified, prostate ca, sent in from correction after inappropriate interaction with another female resident. 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 supervised eating neuropathic pain neurontin copd stable no exacerbation albuterol prn htn amlodipine mild hyponatremia monitor weekly labs leukocytosis resolved hld statin dvt prophylaxis - lovenox dnr/dni reason for continued hospitalization:safe dispo planning, waiting for LTC placement, [facility] communicating with daughter for financial disclosure, no beds available at this time. Quality Stroke Does the patient have a stroke diagnosis?: No VTE Prior VTE?: No VTE Risk Level:: Medical - moderate - high VTE Device Contraindication: Treatment Not Indicated VTE Drug Contraindication: N/A - Med Ordered
[2024-03-13 07:45] VITALS: BP 116/55; PULSE 57; RESP 14; TEMP 36.4; O2SAT 96
[2024-03-13] MEDS: Acetaminophen 325 MG TABLET 650 MG PO ×2 (07:51→20:44)
[2024-03-13] MEDS: Atorvastatin Calcium 20 MG TABLET PO (07:52)
[2024-03-13] MEDS: Lidocaine 4 % Patch ADH..PATCH 1 PATCH TRANSDERMA (07:52)
[2024-03-13] MEDS: amLODIPine Besylate 5 MG TABLET PO (07:52)
[2024-03-13] MEDS: Cholecalciferol (Vitamin D3) 25 MCG TABLET PO (07:52)
[2024-03-13] MEDS: Aspirin Enteric Coated 81 MG TABLET.DR PO (07:52)
[2024-03-13] MEDS: Gabapentin 100 MG CAPSULE PO (07:52)
[2024-03-13] MEDS: Fluticasone/Umeclidinium/Vilanterol 100/62.5/25 BLST.W.DEV 1 PUFF INHALE (08:26)
[2024-03-13 08:27] VITALS: PULSE 57; RESP 14; O2SAT 98
[2024-03-13 12:36] LABS: Hematocrit 38.6 % (42.0-52.0); Hemoglobin 13.6 g/dl (14.0-18.0); Mean Corpuscular HGB Conc 35.2 g/dl (31.0-36.0); Mean Corpuscular Hemoglobin 30.2 pg (27.0-33.0); Mean Corpuscular Volume 85.8 fL (80.0-98.0); Mean Platelet Volume 9.6 fL (9.4-12.4); Platelet Count 272 X10*3/uL (160-400); Red Cell Distribution Width 13.3 % (11.0-16.0); White Blood Count 8.9 X10*3/uL (4.8-10.8)
[2024-03-13 12:50] LABS: Anion Gap 11 (12-20); Blood Urea Nitrogen 12 mg/dL (9-16); Calcium 8.7 mg/dL (8.4-10.2); Carbon Dioxide 25 mmol/L (22-29); Chloride 101 mmol/L (96-108); Creatinine Clr Calc Pharmacy 76.1; Estimated Glomerular Filt Rate > 60; Glucose Random 106 mg/dL (60-115); Sodium 133 mmol/L (135-145)
--- NOTE | 2024-03-13 14:20 | MHC.CM.PN ---
Addendum entered by Nieves Mustafa RN 03/13/24 14:27: DC address is daughter's address on file. Original Note: CM & CM director spoke w/ patient's dtr/HCP Rayne via telephone w/ metallurgical engineering teacher assisting. Rayne would like to take patient home. Reports she will be his full-time caregiver until DENTAL FINANCIAL COORDINATOR's are in place - has already identified 2 family members to serve as DENTAL FINANCIAL COORDINATOR's and has started this process w/ [facility]. Requesting that patient have hospital bed prior to dc. CM spoke w/ Dee @ [facility]. They are contracted w/ [facility]. Will need Rx faxed to [facility] @ [phone] & Dee @ [phone] RX to include: ht/wt, length of use (99 months), qualifying dx (demetia, anastasiia transfer, bed/chair bound). Requested from [facility]. [facility] unable to give estimate of wait for delivery. CM will continue to follow.
[2024-03-13] MEDS: Enoxaparin Sodium 40 MG/0.4 ML SYRINGE SUBCUT (14:31)
[2024-03-13 16:00] VITALS: BP 121/60; PULSE 60; RESP 16; TEMP 36.4; O2SAT 97
[2024-03-13] MEDS: traZODone HCL 50 MG TABLET PO (20:44)
[2024-03-13 23:40] VITALS: BP 126/58; PULSE 60; RESP 18; TEMP 36.6; O2SAT 98
[2024-03-14 07:37] VITALS: BP 128/60; PULSE 61; RESP 16; TEMP 36.4; O2SAT 95
--- NOTE | 2024-03-14 07:44 | P.PNIM_ITS ---
Subjective Subjective Date of Service: 03/14/24 Interval History: Seen and examined this morning Follow-up for placement No overnight events Physical Exam 2 Vital Signs: Vital Signs: Last Vital Signs Temp 97.6 F 03/14/24 07:37 Pulse 61 03/14/24 07:37 Resp 16 03/14/24 07:37 BP 128/60 03/14/24 07:37 Pulse Ox 95 03/14/24 07:37 O2 Del Method Room Air 03/14/24 07:37 O2 Flow Rate 3 12/22/23 20:00 BMI result Body Mass Index 28.0 alert, confused oob to chair Objective Data Active Medications Acetaminophen (Acetaminophen 325 Mg Tablet) 650 mg PO Q6H PRN PRN Reason: Pain, Mild (Pain Scale 1-3), fever or headache Last Admin: 03/12/24 14:07 Dose: 650 mg Documented By: WAGNER Acetaminophen (Acetaminophen 325 Mg Tablet) 650 mg PO BID [facility] Last Admin: 03/13/24 20:44 Dose: 650 mg Documented By: JESSICA Albuterol Sulfate (Albuterol Sulfate 90 Mcg 8 Gm Inhaler) 2 puff INHALE RQ6H PRN PRN Reason: sob Last Admin: 02/25/24 14:23 Dose: 2 puff Documented By: KAYLEIGH Amlodipine Besylate (Amlodipine Besylate 5 Mg Tablet) 5 mg PO DAILY [facility]; Protocol Last Admin: 03/13/24 07:52 Dose: 5 mg Documented By: NURIS Aspirin (Aspirin Enteric Coated 81 Mg Tablet.) 81 mg PO DAILY [facility] Last Admin: 03/13/24 07:52 Dose: 81 mg Documented By: NURIS Atorvastatin Calcium (Atorvastatin Calcium 20 Mg Tablet) 20 mg PO DAILY [facility] Last Admin: 03/13/24 07:52 Dose: 20 mg Documented By: NURIS Calcium Carbonate (Calcium Carbonate 750 Mg Tab.Chew) 750 mg PO Q4H PRN PRN Reason: Heartburn Capsaicin (Capsaicin 0.025% Cream 60 Gm Tube) 1 appl TOPICAL QID PRN; Protocol PRN Reason: Pain, Moderate(Pain Scale 4-6) Last Admin: 03/11/24 10:10 Dose: 1 appl Documented By: COOKIE Enoxaparin Sodium (Enoxaparin Sodium 40 Mg/0.4 Ml Syringe) 40 mg SUBCUT Q24H [facility] Last Admin: 03/13/24 14:31 Dose: 40 mg Documented By: NURIS Fluticasone/Umeclidinium/Vilanterol (Fluticasone/Umeclidinium/Vilanterol 100/62.5/25 Blst.W.Dev) 1 puff INHALE RDAILY [facility] Last Admin: 03/13/24 08:26 Dose: 1 puff Documented By: REJI Gabapentin (Gabapentin 100 Mg Capsule) 100 mg PO DAILY [facility] Last Admin: 03/13/24 07:52 Dose: 100 mg Documented By: NURIS Lidocaine (Lidocaine 4 % Patch Adh..Patch) 1 patch TRANSDERMA DAILY [facility]; Protocol Last Admin: 03/13/24 07:52 Dose: 1 patch Documented By: NURIS Magnesium Hydroxide (Milk Of Magnesia 30 Ml Oral.Susp) 30 ml PO DAILY PRN PRN Reason: Constipation Last Admin: 12/08/23 08:25 Dose: 30 ml Documented By: UADI Melatonin (Melatonin 3 Mg Tablet) 6 mg PO BEDTIME PRN PRN Reason: Insomnia Last Admin: 03/12/24 20:46 Dose: 6 mg Documented By: CASTILPierre Trazodone HCl (Trazodone Hcl 50 Mg Tablet) 50 mg PO BEDTIME [facility] Last Admin: 03/13/24 20:44 Dose: 50 mg Documented By: JESSICA Vitamin D (Cholecalciferol (Vitamin D3) 25 Mcg Tablet) 25 mcg PO DAILY [facility] Last Admin: 03/13/24 07:52 Dose: 25 mcg Documented By: NURIS Labs 03/13/24 12:21 03/13/24 12:20 Labs: Laboratory Results - last 24 hr 03/13/24 03/13/24 12:20 12:21 MCV 85.8 MCH 30.2 MCHC 35.2 RDW 13.3 Plt Count 272 MPV 9.6 Absolute Nucleated RBC 0.000 Nucleated RBC % (auto) 0.0 Anion Gap 11 L Estim Creat Clear Calc 76.1 Estimated GFR > 60 Random Glucose 106 Calcium 8.7 Assessment and Plan (1) Major neurocognitive disorder: Status: Acute Plan 83M PMH copd, htn, hld, dementia unspecified, prostate ca, sent in from custodial after inappropriate interaction with another female resident. 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 supervised eating neuropathic pain neurontin copd stable no exacerbation albuterol prn htn amlodipine mild hyponatremia monitor weekly labs leukocytosis resolved hld statin dvt prophylaxis - lovenox attending Dr. Chris dnr/dni reason for continued hospitalization:safe dispo planning, waiting for LTC placement, [facility] communicating with daughter for financial disclosure, no beds available at this time. Quality Stroke Does the patient have a stroke diagnosis?: No VTE Prior VTE?: No VTE Risk Level:: Medical - moderate - high VTE Device Contraindication: Treatment Not Indicated VTE Drug Contraindication: N/A - Med Ordered
[2024-03-14] MEDS: Lidocaine 4 % Patch ADH..PATCH 1 PATCH TRANSDERMA (08:05)
[2024-03-14] MEDS: Gabapentin 100 MG CAPSULE PO (08:07)
[2024-03-14] MEDS: Acetaminophen 325 MG TABLET 650 MG PO ×2 (08:07→20:57)
[2024-03-14] MEDS: amLODIPine Besylate 5 MG TABLET PO (08:07)
[2024-03-14] MEDS: Aspirin Enteric Coated 81 MG TABLET.DR PO (08:07)
[2024-03-14] MEDS: Fluticasone/Umeclidinium/Vilanterol 100/62.5/25 BLST.W.DEV 1 PUFF INHALE (08:08)
[2024-03-14] MEDS: Cholecalciferol (Vitamin D3) 25 MCG TABLET PO (08:08)
[2024-03-14] MEDS: Atorvastatin Calcium 20 MG TABLET PO (08:08)
[2024-03-14 08:09] VITALS: PULSE 61; RESP 16; O2SAT 97
--- NOTE | 2024-03-14 09:36 | PC.NURSE ---
Pt is a anastasiia lift transfer, requires frequent repositioning for prevention of pressure ulcer, head of bed needs to be elevated over 30 degrees at times and not able to maintain that position w/ pillows.
--- NOTE | 2024-03-14 11:16 | MHC.CM.PN ---
Addendum entered by Nieves Mustafa RN 03/14/24 15:14: CM spoke with [facility]. Confirmed patient is active w/ Dr. Patrick Og. Follow up appt scheduled for 04/05 @ 9:30am. Spoke w/ Lucas and submitted equipment request for anastasiia and recline/lift chair, as hospitalist is unable to order. [facility] also aware that VNA will be ordered. Daughter provided w/ letter for [employer], per request, as she reports patient's electricity is currently off. Original Note: RX for hospital bed faxed to [facility] & [facility]. Dee w/ [facility] is working w/ [facility]. Will order bed from supplier that is able to deliver bed soonest. Likely next week. Per [facility], daughter also requested rx for anastasiia and lift/recline chair. Requested from [facility]. May not be delivered prior to dc. 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 Referral to [facility] for additional services. Also sent referral to [facility]. PCP was Patrick Og prior to patient's admission to [facility]. CM lab assistant to confirm patient is active and schedule f/u appt. CM will continue to follow.
[2024-03-14] MEDS: Enoxaparin Sodium 40 MG/0.4 ML SYRINGE SUBCUT (15:11)
[2024-03-14 15:12] VITALS: BP 139/65; PULSE 58; RESP 16; TEMP 36.7; O2SAT 98
[2024-03-14] MEDS: traZODone HCL 50 MG TABLET PO (20:57)
[2024-03-14 23:33] VITALS: BP 119/55; PULSE 66; RESP 17; TEMP 36.8; O2SAT 95
[2024-03-15 07:45] VITALS: BP 126/58; PULSE 60; RESP 18; TEMP 36.9; O2SAT 96
[2024-03-15] MEDS: Acetaminophen 325 MG TABLET 650 MG PO ×2 (08:11→20:09)
[2024-03-15] MEDS: Atorvastatin Calcium 20 MG TABLET PO (08:11)
[2024-03-15] MEDS: Cholecalciferol (Vitamin D3) 25 MCG TABLET PO (08:11)
[2024-03-15] MEDS: amLODIPine Besylate 5 MG TABLET PO (08:11)
[2024-03-15] MEDS: Aspirin Enteric Coated 81 MG TABLET.DR PO (08:11)
[2024-03-15] MEDS: Lidocaine 4 % Patch ADH..PATCH 1 PATCH TRANSDERMA (08:13)
[2024-03-15] MEDS: Fluticasone/Umeclidinium/Vilanterol 100/62.5/25 BLST.W.DEV 1 PUFF INHALE (08:25)
[2024-03-15 08:26] VITALS: PULSE 57; RESP 18; O2SAT 98
--- NOTE | 2024-03-15 15:13 | MHC.CM.PN ---
Per David rep, hospital bed scheduled to be delivered tomorrow 03/16. Will need to call back in the morning for delivery window. Daughter aware and will be present for delivery. Patient will dc home via BLS after delivery. Daughter agreeable. Per [facility], patient is already part of a [employer] program and daughter is communicating w/ [employer] & has been referred to Caregiver Support Program. [facility] aware of dc. Dee from [facility] aware of dc.
[2024-03-15 15:14] VITALS: BP 133/60; PULSE 65; RESP 17; TEMP 36.6; O2SAT 98
[2024-03-15] MEDS: Enoxaparin Sodium 40 MG/0.4 ML SYRINGE SUBCUT (15:23)
--- NOTE | 2024-03-15 16:20 | P.PNIM_ITS ---
Subjective Subjective Date of Service: 03/15/24 Interval History: seen and examined this morning Follow-up for placement No overnight events No specific complaints today difficult to obtain full ROS due to dementia Physical Exam 2 Vital Signs: Vital Signs: Last Vital Signs Temp 97.8 F 03/15/24 15:14 Pulse 65 03/15/24 15:14 Resp 17 03/15/24 15:14 BP 133/60 03/15/24 15:14 Pulse Ox 98 03/15/24 15:14 O2 Del Method Room Air 03/15/24 15:14 O2 Flow Rate 3 12/22/23 20:00 BMI result Body Mass Index 28.0 Const: General: alert and awake Nutritional Appearance: average body habitus Resp: Effort & Inspection: normal respiratory effort, able to speak in complete sentences, no respiratory distress and no use of accessory muscles Cardio: Rate: regular rate Neuro: General: moves all extremities and CN's II-XI intact bilaterally Extrem: General: Yes no pedal edema Objective Data Active Medications Acetaminophen (Acetaminophen 325 Mg Tablet) 650 mg PO Q6H PRN PRN Reason: Pain, Mild (Pain Scale 1-3), fever or headache Last Admin: 03/12/24 14:07 Dose: 650 mg Documented By: WAGNER Acetaminophen (Acetaminophen 325 Mg Tablet) 650 mg PO BID [facility] Last Admin: 03/15/24 08:11 Dose: 650 mg Documented By: ASMITA Albuterol Sulfate (Albuterol Sulfate 90 Mcg 8 Gm Inhaler) 2 puff INHALE RQ6H PRN PRN Reason: sob Last Admin: 02/25/24 14:23 Dose: 2 puff Documented By: KAYLEIGH Amlodipine Besylate (Amlodipine Besylate 5 Mg Tablet) 5 mg PO DAILY [facility]; Protocol Last Admin: 03/15/24 08:11 Dose: 5 mg Documented By: ASMITA Aspirin (Aspirin Enteric Coated 81 Mg Tablet.) 81 mg PO DAILY [facility] Last Admin: 03/15/24 08:11 Dose: 81 mg Documented By: ASMITA Atorvastatin Calcium (Atorvastatin Calcium 20 Mg Tablet) 20 mg PO DAILY [facility] Last Admin: 03/15/24 08:11 Dose: 20 mg Documented By: ASMITA Calcium Carbonate (Calcium Carbonate 750 Mg Tab.Chew) 750 mg PO Q4H PRN PRN Reason: Heartburn Capsaicin (Capsaicin 0.025% Cream 60 Gm Tube) 1 appl TOPICAL QID PRN; Protocol PRN Reason: Pain, Moderate(Pain Scale 4-6) Last Admin: 03/11/24 10:10 Dose: 1 appl Documented By: COOKIE Enoxaparin Sodium (Enoxaparin Sodium 40 Mg/0.4 Ml Syringe) 40 mg SUBCUT Q24H [facility] Last Admin: 03/15/24 15:23 Dose: 40 mg Documented By: GOLD Fluticasone/Umeclidinium/Vilanterol (Fluticasone/Umeclidinium/Vilanterol 100/62.5/25 Blst.W.Dev) 1 puff INHALE RDAILY [facility] Last Admin: 03/15/24 08:25 Dose: 1 puff Documented By: KRISHNA Lidocaine (Lidocaine 4 % Patch Adh..Patch) 1 patch TRANSDERMA DAILY [facility]; Protocol Last Admin: 03/15/24 08:13 Dose: 1 patch Documented By: ASMITA Magnesium Hydroxide (Milk Of Magnesia 30 Ml Oral.Susp) 30 ml PO DAILY PRN PRN Reason: Constipation Last Admin: 12/08/23 08:25 Dose: 30 ml Documented By: AUDI Melatonin (Melatonin 3 Mg Tablet) 6 mg PO BEDTIME PRN PRN Reason: Insomnia Last Admin: 03/12/24 20:46 Dose: 6 mg Documented By: CASTILPierre Trazodone HCl (Trazodone Hcl 50 Mg Tablet) 50 mg PO BEDTIME [facility] Last Admin: 03/14/24 20:57 Dose: 50 mg Documented By: REANNA Vitamin D (Cholecalciferol (Vitamin D3) 25 Mcg Tablet) 25 mcg PO DAILY [facility] Last Admin: 03/15/24 08:11 Dose: 25 mcg Documented By: ASMITA Labs 03/13/24 12:21 03/13/24 12:20 Assessment and Plan (1) Major neurocognitive disorder: Status: Acute Plan 83M PMH copd, htn, hld, dementia unspecified, prostate ca, sent in from intermediate after inappropriate interaction with another female resident. Unspecified dementia, stable, needs placement Continue Prozac and trazodone, no inappropriate sexual behavior noted during hospitalization daily out of bed to chair via anastasiia lift follow labs periodically left knee osteoarthritis continue as needed tramadol, Aspercreme scheduled Tylenol twice daily, Esau wrap and as needed heat Dysphasia [employer] rec NDD2, thin liquid cont. supervised eating neuropathic pain neurontin copd stable no exacerbation albuterol prn htn amlodipine mild hyponatremia up and down but persistently above 130 monitor weekly labs leukocytosis resolved hld statin dvt prophylaxis - lovenox attending Dr. Chris dnr/dni reason for continued hospitalization:safe dispo planning Quality Stroke Does the patient have a stroke diagnosis?: No VTE Prior VTE?: No VTE Risk Level:: Medical - moderate - high VTE Device Contraindication: Treatment Not Indicated VTE Drug Contraindication: N/A - Med Ordered
[2024-03-15] MEDS: traZODone HCL 50 MG TABLET PO (20:09)
[2024-03-15 23:42] VITALS: BP 110/54; PULSE 65; RESP 18; TEMP 36.8; O2SAT 96
[2024-03-16 07:39] VITALS: BP 112/53; PULSE 59; RESP 18; TEMP 36.7; O2SAT 95
[2024-03-16] MEDS: Fluticasone/Umeclidinium/Vilanterol 100/62.5/25 BLST.W.DEV 1 PUFF INHALE (08:04)
[2024-03-16 08:06] VITALS: PULSE 72; RESP 18; O2SAT 98
[2024-03-16] MEDS: amLODIPine Besylate 5 MG TABLET PO (08:21)
[2024-03-16] MEDS: Lidocaine 4 % Patch ADH..PATCH 1 PATCH TRANSDERMA (08:21)
[2024-03-16] MEDS: Aspirin Enteric Coated 81 MG TABLET.DR PO (08:22)
[2024-03-16] MEDS: Acetaminophen 325 MG TABLET 650 MG PO (08:22)
[2024-03-16] MEDS: Atorvastatin Calcium 20 MG TABLET PO (08:22)
[2024-03-16] MEDS: Cholecalciferol (Vitamin D3) 25 MCG TABLET PO (08:22)
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
--- NOTE | 2024-03-16 13:53 | W.MHC.F2F ---
Service Date Service Date: 03/16/24 Encounter Date of encounter: 03/16/24 Reasons for Services Signs and symptoms assessed: medication management Reason for shelter: medication management and teach disease management MD Overseeing Care: Micki Santos Homebound: Leaving the home is medically contraindicated at this time without the asist of a device and/or another person due th the listed conditions above and below. Reason homebound: cognitively impaired / unsafe Certification: Based on the above findings, I certify that this patient is confined to the home and needs intermittent shelter care, physical therapy and/or speech therapy, or continues to need occupational therapy. The patient is under my care, and I have initiated the establishment of the plan of care. The patient will be followed by a physician who will periodically review the plan of care. Time Spent With Patient Time: Total time managing care of this patient today ____ minutes.
--- NOTE | 2024-03-16 14:59 | PC.NURSE ---
Discharge instructions given to pts Daughter Rayne Son over the phone [phone], aware of need for follow up visits and how to arrange transportation and VN services . RX filled [facility] and sent with pt and ambulance personnel . Daughter accepting of discharge to home and reports hospital bed has arrived at residence all questions answered
== END 2024-03-16 15:30 | disposition home health service (06) ==
LOC: HO.IMC 01-03 07:05 → HO.S3 01-06 06:37
PROVIDERS: Internal Medicine; Nurse Practitioner Acute Care; Student in an Organized Health Care Education/Training Program; Admitting Provider Internal Medicine; PCP Internal Medicine; Visit Provider Physician Assistant Medical
DX: F03.918 Unspecified dementia, unspecified severity, with other behavioral disturbance (principal); M17.12 Unilateral primary osteoarthritis, left knee; M25.562 Pain in left knee; J44.9 Chronic obstructive pulmonary disease, unspecified; I10 Essential (primary) hypertension; E78.5 Hyperlipidemia, unspecified; Z85.46 Personal history of malignant neoplasm of prostate; M79.89 Other specified soft tissue disorders; Z79.899 Other long term (current) drug therapy; R13.10 Dysphagia, unspecified; J33.9 Nasal polyp, unspecified; S09.90XA Unspecified injury of head, initial encounter; W07.XXXA Fall from chair, initial encounter; Y93.89 Activity, other specified; Y92.230 Patient room in hospital as the place of occurrence of the external cause; Y99.9 Unspecified external cause status
CPT/HCPCS: 36415; 70450; 73560; 73700; 80048; 80051; 80076; 82565; 82947; 83735; 84100; 84550; 85025; 85027; 92526; 92610; 96360; 96361; 96372; 97162; 99221; J1650

== ENCOUNTER → 2023-11-23 18:07 | Outpatient (BNV) | payer OTHER, SELFPAY | PROVIDERS: Admitting Provider Internal Medicine; Visit Provider Internal Medicine | DX: F03.90 Unspecified dementia, unspecified severity, without behavioral disturbance, psychotic disturbance, mood disturbance, and anxiety (principal) | CPT/HCPCS: 99231; 99232; 99239; G0180 ==

== ENCOUNTER → 2023-11-23 18:07 | Outpatient (BNV) | payer OTHER, SELFPAY | PROVIDERS: Admitting Provider Internal Medicine; PCP Family Medicine | DX: M17.12 Unilateral primary osteoarthritis, left knee (principal); M25.562 Pain in left knee | CPT/HCPCS: 99222 ==

== ENCOUNTER 2024-03-16 15:50 | Emergency (ER) | payer OTHER, SELFPAY ==
[2024-03-16 16:05] VITALS: BP 135/53; PULSE 64; RESP 18; TEMP 36.6; O2SAT 99; BMI 27.0
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
--- NOTE | 2024-03-16 16:17 | ECG_ITS ---
Test Reason : SOB Blood Pressure : / mmHG Vent. Rate : 072 BPM Atrial Rate : 072 BPM P-R Int : 162 ms QRS Dur : 080 ms QT Int : 378 ms P-R-T Axes : 076 070 085 degrees QTc Int : 413 ms Sinus rhythm with Premature atrial complexes Cannot rule out Anterior infarct , age undetermined Abnormal ECG When compared with ECG of 26-MAY-2023 08:12, Minimal criteria for Anterior infarct are now Present Referred By: Lew Sexton Electronically Signed By:ALLIE BENITEZ MD
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
--- NOTE | 2024-03-16 16:58 | MHC.EDTECH ---
Patient was biba ,vitals taken ,ekg done and was read by Provider ,Patient was incontinent of medium amount of stool ,care given , All safety measure in Place .
--- NOTE | 2024-03-16 17:03 | PC.NURSE ---
pt represents to the ED via EMS s/p being discharged from the medical surgical unit after being admitted at [facility] [place]. upon EMS arrival to MS unit - EMS noted pt to be 90% on RA w/ SOB while transferring from MS unit to their EMS truck. pt then brought to ED to be reevaluated. upon ED arrival - vss and up to date. 99% on RA. no sob/wob noted. respirations even/unlabored. lung sounds CTA. pt seen by ED provider. ekg performed by tech. pt incontinent of stool. pericare performed. pt turned/repositioned to comfort. sitting upright to promote patent airway. resting comfortably in no apparent distress. pt medically cleared and now ready for discharge. sld educational aide notified/aware. transportation via BLS unknown at this time. plan of care ongoing. call oropeza placed within reach.
[2024-03-16 18:05] VITALS: BP 120/43; PULSE 70; RESP 16; TEMP 36.3; O2SAT 98
[2024-03-16] MEDS: Acetaminophen 325 MG TABLET 650 MG PO (18:24)
--- NOTE | 2024-03-16 20:02 | PC.NURSE ---
pt assisted in incontinence bed change, new gown placed. pt confused at this time.
[2024-03-16 20:05] VITALS: BP 122/50; PULSE 89; RESP 15; TEMP 36.7; O2SAT 96
--- NOTE | 2024-03-16 20:09 | MHC.EDTECH ---
Rounding done ,vitals taken ,Patient was soiled with medium amount of stool care given ,Pt is waiting for his ride to go home .
[2024-03-16 20:38] VITALS: BP 122/50; PULSE 89; RESP 15; TEMP 36.7; O2SAT 96
--- NOTE | 2024-03-16 20:38 | PC.NURSE ---
ems at bedside to transport pt home.
== END 2024-03-16 20:38 | disposition home or self-care (01) ==
PROVIDERS: Emergency Provider Internal Medicine
DX: F03.90 Unspecified dementia, unspecified severity, without behavioral disturbance, psychotic disturbance, mood disturbance, and anxiety (principal); R06.02 Shortness of breath; M25.562 Pain in left knee
CPT/HCPCS: 93005; 99283; 99285

== ENCOUNTER → 2024-03-16 16:17 | Outpatient (BNV) | payer OTHER, SELFPAY | PROVIDERS: Emergency Provider Internal Medicine; Visit Provider Internal Medicine Cardiovascular Disease | DX: R06.02 Shortness of breath (principal); I49.1 Atrial premature depolarization; R94.31 Abnormal electrocardiogram [ECG] [EKG] | CPT/HCPCS: 93010 ==

== ENCOUNTER 2024-05-16 05:02 | Emergency (ER) | payer OTHER, SELFPAY ==
--- NOTE | ~2024-05-16 | XR_ITS ---
CLINICAL HISTORY: pain after fall 2 view left knee Comparison: CR/NC/SR - XR KNEE LT 2V - 12/21/23 17:51 EDT Findings: Advanced chronic changes without acute fracture. No acute fracture. Progressive, severe tricompartmental osteoarthritis with severe joint space narrowing, osteophytes, subchondral sclerosis and subchondral cysts. No joint effusion. No radiopaque foreign body. Anterior soft tissue swelling. IMPRESSION: Advanced chronic changes without acute fracture. This document has been electronically signed by: Nikolai Ngo MD on 05/16/2024 06:50:54
--- NOTE | ~2024-05-16 | XR_ITS ---
CLINICAL HISTORY: fall 3 view, pelvis and left hip Comparison: CR/SR - XR HIP LT MIN 2V - 04/12/22 13:59 EST Findings: No acute fracture or malalignment. Degenerative changes throughout the SI joints, pubic symphysis and hips bilaterally. The soft tissues are unremarkable. IMPRESSION: No acute findings. This document has been electronically signed by: Nikolai Ngo MD on 05/16/2024 06:43:46
--- NOTE | ~2024-05-16 | CT_ITS ---
CLINICAL HISTORY: unwitnessed fall, head injury CT head without contrast Comparison: CT/SR - CT HEAD/BRAIN WO IV CON - 11/27/23 14:[address]/SR - CT HEAD/BRAIN WO IV CON - 08/16/23 20:34 EDT Findings: There is age-appropriate atrophy. The size and shape of the ventricular system is within normal limits for degree of atrophy. Unchanged areas of low-attenuation within the periventricular and deep white matter. Noonan-white differentiation is well preserved. No midline shift mass effect. No intracranial hemorrhage. No calvarial fractures IMPRESSION: No fracture or intracranial hemorrhage. This document has been electronically signed by: Jassi Moore MD on 05/16/2024 07:11:17
--- NOTE | ~2024-05-16 | CT_ITS ---
CLINICAL HISTORY: dementia, head injury, cant clinically eval c-spi CT cervical spine without contrast Comparison: CT/REG/SR - CT CERVICAL SPINE WO IV CON - 08/16/23 20:34 EDT Findings: There is continued 3 mm of retrolisthesis of C5 on C6. There is 2 mm of retrolisthesis of C6 on C7. Moderate to severe multilevel degenerative disc disease and degenerative facet disease is again evident throughout the cervical spine. No acute fracture or prevertebral soft tissue swelling is identified. Upper airway is patent. No apical pneumothorax. IMPRESSION: No acute fracture. Multilevel degenerative disc disease and degenerative facet disease with multilevel spondylolisthesis as seen previously. This document has been electronically signed by: Jassi Moore MD on 05/16/2024 07:14:33
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
--- NOTE | 2024-05-16 05:27 | ECG_ITS ---
Test Reason : FALL Blood Pressure : */* mmHG Vent. Rate : 81 BPM Atrial Rate : 81 BPM P-R Int : 150 ms QRS Dur : 84 ms QT Int : 362 ms P-R-T Axes : 79 74 98 degrees QTcB Int : 420 ms Normal sinus rhythm Septal infarct (cited on or before 16-Mar-2024) Abnormal ECG When compared with ECG of 16-Mar-2024 16:47, Premature atrial complexes are no longer Present Referred By: Sriram Lopez Electronically Signed By: ALLIE BENITEZ MD
[2024-05-16 05:28] VITALS: BP 135/64; PULSE 72; RESP 16; TEMP 36.2; O2SAT 98; BMI 25.1
[2024-05-16 05:58] LABS: MANUAL DIFF FLAG NO
[2024-05-16 06:00] LABS: Basophils Absolute Auto 0.1 X10*3/uL (0.0-0.2); Basophils Percent Auto 0.7 % (0-2); Eosinophils Absolute Auto 0.5 X10*3/uL (0.0-0.4); Eosinophils Percent Auto 5.1 % (0-4); Hematocrit 41.5 % (42.0-52.0); Imm Gran Abs Auto 0.02 X10*3/uL (0.00-0.03); Imm Gran Pct Auto 0.2 % (0.0-0.4); Lymphocytes Absolute Auto 1.3 X10*3/uL (1.2-4.9); Lymphocytes Percent Auto 13.9 % (20-40); Mean Corpuscular HGB Conc 33.7 g/dl (31.0-36.0); Mean Corpuscular Hemoglobin 29.4 pg (27.0-33.0); Mean Corpuscular Volume 87.2 fL (80.0-98.0); Mean Platelet Volume 10.1 fL (9.4-12.4); Monocytes Absolute Auto 0.7 X10*3/uL (0.1-1.2); Monocytes Percent Auto 7.6 % (2-11); Neutrophils Absolute Auto 6.7 x10*3/uL (2.0-8.3); Neutrophils Percent Auto 72.5 % (45-73); Platelet Count 291 X10*3/uL (160-400); Red Blood Count 4.76 X10*6/uL (4.60-5.80); Red Cell Distribution Width 13.4 % (11.0-16.0); White Blood Count 9.2 X10*3/uL (4.8-10.8)
--- OUTSIDE RECORDS SUMMARY | 2024-05-16 06:08 | XMS_ITS | Encounter Summary ---
Author Organization [employer] Address [address] 7[address] [place] [address] Care Team Providers Care Motorbike Courier Name Role Phone Rayne Brizuela MD Primary Care Provide r Reason for Visit * Reason Onset Date Comments Durable Medical Equipment 03/14/2024 Encounter Details Date Type Department Care Team ([facility] st Contact Info) Description 03/14/[address] [facility]INE [address] [place] [address] Rayne Brizuela MD [address] [place] [address] Durable Medical Equipment Social History Tobacco Use Types Packs/Day Years Used Date Smoking Tobacco: Never Smokeless Tobacco: Never Alcohol Use Standard Drinks/Week Comments Never 0 (1 standard drink = 0.6 oz pur e alcohol) Depression Answer Date Recorded Patient Health Questionnaire-9 Score 0 09/14/2022 Housing Stability Answer Date Recorded What is your housing situation today? I have nahid rebollar 02/07/[address] you li ve. Do you have problems with any of the following? None of the above 02/07/2023 Food Insecurity Answer Date Recorded Within the past 12 months, y ou worried that your food would run out before you got money to buy more: Never True 02/07/2023 Within the past 12 months,th e food you bought just didn't last and you didn't have enough money to get more: Never True Transportation Answer Date Recorded In the past 12 months, has l ack of transportation kept you from medical appts, meetings, work or from getting things needed for daily living? No 02/07/2023 Utilities Answer Date Recorded In the past 12 months, has t he electric, gas, oil or water company threatened to shut off services in your home? No 02/07/2023 Depression Answer Date Recorded Patient Health Questionnaire-2 Score 0 09/14/2022 Sex and Gender Information Value Date Recorded Sex Assigned at Male 02/22/2022 10:14 AM EDT Legal Sex Male 10:14 AM EDT Gender Identity Male 02/22/2022 10:14 AM EDT Sexual Orientation Don't know 02/22/2022 10 :14 AM EDT documented as of this encounter Miscellaneous Notes * Telephone Encounter - Reid Terence - 03/14/2024 2:53 PM EST Tc from Jimena from [facility] requesting DME for pt. DME: Neda lift Recliner Chair Jimena requests call back regarding any updates on DME due to pt currently being hospitalized at the moment. Please contact Jimena at [phone]. documented in this encounter Plan of Treatment Not on file documented as of this encounter Visit Diagnoses Not on filedocumented in this encounter Additional Health Concerns Assessment Noted Time PHQ-9 Depression Total Score: 0 09/15/19 11:34 AM EDT documented as of this encounter Care Teams Motorbike Courier Relationship Specialty Start Date End Date Rayne Brizuela MD [address] [place] [id number] PCP - General Family Medicine 05/23/19 [facility] 03/18/24 documented as of this encounter
--- OUTSIDE RECORDS SUMMARY | 2024-05-16 06:08 | XMS_ITS | Encounter Summary ---
Author Organization [employer] [facility] Address [address] 7t [place] [address] Care Team Providers Care Transportation Solutions Manager Name Role Phone Rayne Brizuela MD Primary Care Provide r Encounter Details Date Type Department Care Team (Late st Contact Info) Description 05/03/2022 Orders Only [facility] MEDICINE [address] [place] [address] Melissa Britton MD [address] [place] [address] Altered behavior (Primary Dx) Social History Tobacco Use Types Packs/Day Years Used Date Smoking Tobacco: Never Assessed Sex and Gender Information Value Date Recorded Sex Assigned at Male 02/22/2022 10:14 AM EDT Legal Sex Male 10:14 AM EDT Gender Identity Male 02/22/2022 10:14 AM EDT Sexual Orientation Don't know 02/22/2022 10 :14 AM EDT documented as of this encounter Plan of Treatment Not on file documented as of this encounter Visit Diagnoses Diagnosis Altered behavior- Primary documented in this encounter Care Teams Transportation Solutions Manager Relationship Specialty Start Date End Date Rayne Brizuela MD [address] [place] [address] [phone] PCP - General Family Medicine 05/23/19 [facility] 03/18/24 documented as of this encounter
--- OUTSIDE RECORDS SUMMARY | 2024-05-16 06:08 | XMS_ITS | Encounter Summary ---
Author Organization [employer] Address [address] 7[address] [place] [address] Care Team Providers Care Tension Machine Operator Name Role Phone Rayne Brizuela MD Primary Care Provide r Reason for Visit * Reason Onset Date Comments ER Follow-up 04/27/2023 Encounter Details Date Type Department Care Team (Late st Contact Info) Description 04/27/2023 Telephone [facility] MEDICINE 230 [place] [address] Rayne Brizuela MD [address] [place] [address] ER Follow-up Social History Tobacco Use Types Packs/Day Years [...] encounter Miscellaneous Notes * Telephone Encounter - Tom Burgess - 04/27/2023 11:46 AM EST Patient calling to report ED visit on : 04/27/2023 Date: 04/24 Hospital: [facility] Seen for: Hallucination, Anxiety and was advised by the Providers at the ER to seek a referral for a Specialty Person Patient advised will forward to team nurse for follow up documented in this encounter Plan of Treatment Not on file documented as of this encounter Visit Diagnoses Not on filedocumented in this encounter Additional Health Concerns Assessment Noted Time PHQ-9 Depression Total Score: 0 09/15/19 23 11:34 AM EDT documented as of this encounter Care Teams Tension Machine Operator Relationship Specialty Start Date End Date Rayne Brizuela MD [address] [place] [id number] PCP - General Family Medicine 05/23/19 [facility] 03/18/24 documented as of this encounter
--- OUTSIDE RECORDS SUMMARY | 2024-05-16 06:08 | XMS_ITS | Encounter Summary ---
Author Organization [facility] Address [address]t [place] [address] Care Team Providers Care Piano Professor Name Role Phone Rayne Brizuela MD Primary Care Provide r Reason for Visit * Reason Onset Date Comments Referral 04/26/2024 Encounter Details Date Type Department Care Team ([facility] st Contact Info) Description 04/26/2024 Telephone [facility] [address] [place] [address] Rayne Brizuela MD [address] [place] [address] Referral Social History Tobacco Use Types Packs/Day Years Used Date Smoking Tobacco: Never Passive Smoke Exposure: Never Smokeless Tobacco: Never Alcohol Use Standard [...] encounter Miscellaneous Notes * Telephone Encounter - Emre Franklin - 04/26/2024 11:40 AM EST Tc from [facility] with Syd informing referral that was sent over for nebulizer machine was closed as they don't take insurance [employer] documented in this encounter Plan of Treatment Not on file documented as of this encounter Visit Diagnoses Not on filedocumented in this encounter Additional Health Concerns Assessment Noted Time PHQ-9 Depression Total Score: 0 09/15/19 23 11:34 AM EDT documented as of this encounter Care Teams Piano Professor Relationship Specialty Start Date End Date Rayne Brizuela MD [address] [place] [address] PCP - General Family Medicine 05/23/19 [facility] 03/18/24 documented as of this encounter
--- OUTSIDE RECORDS SUMMARY | 2024-05-16 06:08 | XMS_ITS | Encounter Summary ---
Author Organization [employer] [facility] Address [address] [place] [address] 7t [place] [address] Care Team Providers Care Induction Heating Equipment Setter Name Role Phone Rayne Brizuela MD Primary Care Provide r Encounter Details Date Type Department Care Team (Late st Contact Info) Description 04/29/2022 [facility] Health Information Management [address] [place] [address] Rayne Brizuela MD [address] [place] [address] Social History Tobacco Use Types Packs/Day Years [...] Diagnoses Not on filedocumented in this encounter Care Teams Induction Heating Equipment Setter Relationship Specialty Start Date End Date Rayne Brizuela MD [address] [place], [place] [phone] PCP - General Family Medicine 05/23/19 [facility] 03/18/24 documented as of this encounter
--- OUTSIDE RECORDS SUMMARY | 2024-05-16 06:08 | XMS_ITS | Clinical Summary ---
Author Organization [employer] Address [address] [facility] 7t [place] [address] Care Team Providers Care Commercial Credit Reviewer Name Role Phone Rayne Brizuela MD Primary Care Provide r Allergies No known active allergies Medications Aspirin Adult Low Strength 81 MG EC tablet TAKE 1 TABLET BY MOUTH EVERY MORNING 90 tablet 3 09/30/19 23 Active amLODIPine (Norvasc) 5 MG tablet TAKE 1 TABLET BY MOUTH EVERY MORNING 90 tablet 12/22/19 23 Active acetaminophen (Tylenol 8 Hour) 650 MG ER tablet TAKE 2 TABLETS BY MOUTH EVERY 8 HOURS NEEDED SWALLOW WHOLE WITH WATER DO NOT BREAK, CRUSH, DISSOLVE OR CHEW 90 tablet 2 02/10/20 23 Active cholecalciferol (Vitamin D High Potency) 25 MCG (1000 UT) capsuleIndications :Vitamin D deficiency TAKE 1 CAPSULE BY MOUTH EVERY MORNING 90 capsule 1 03/14/20 23 Active atorvastatin (Lipitor) 20 MG tabletIndications: Other hyperlipidemia TAKE 1 TABLET BY MOUTH EVERY EVENING 90 tablet 1 05/23/19 24 Active traZODone (Desyrel) 50 MG tablet Take 1 tablet by mouth at bedtime. 03/16/20 24 Active bisacodyl (Dulcolax) 10 MG suppository Insert 10 mg into the rectum if needed each day for constipation. 03/16/20 24 Active albuterol (2.5 MG/3ML) 0.083% nebulizer solutionIndication s:Chronic obstructive pulmonary disease, unspecified COPD type (CMS/HCC) Take 3 mL (2.5 mg) by nebulization every 6 (six) hours if needed for wheezing or shortness of breath. 90 mL 3 04/05/20 24 Active albuterol (Ventolin HFA) 108 (90 Base) MCG/ACT inhalerIndications :Chronic obstructive pulmonary disease, unspecified COPD type (CMS/HCC) INHALE 2 PUFFS BY MOUTH EVERY 4 TO 6 HOURS NEEDED 18 g 3 04/05/20 24 Active Fluticasone-Umecli din-Vilant (Trelegy Ellipta) 200-62.5-25 MCG/ACT aerosol powderIndications: Chronic obstructive pulmonary disease, unspecified COPD type (CMS/HCC) Inhale 1 puff Once per day. 1 each 1 04/05/20 24 Active Active Problems Problem Noted Date Diagnosed Date Dementia 04/05/2024 Assessment & Plan (04/05/2024 12:32 PM EST): Family is aware of nature of condition I will prescribe thick it powder (dementia affects patient's ability to swallow and this will help patient with this) Bedbound 04/05/2024 Assessment & Plan (04/05/2024 12:33 PM EST): I will prescribe for patient anastasiia lift, he already has hospital bed at home Cognitive and behavioral changes 03/08/2023 Class 1 obesity 11/12/2022 Allergic rhinitis 03/29/2022 Altered behavior 03/29/2022 Arthritis of hip 03/29/2022 Bilateral hearing loss 03/29/2022 Chest wall pain 03/29/2022 COVID-19 03/29/2022 Decreased hearing 03/29/2022 Depressive disorder 03/29/2022 Elbow joint pain 03/29/2022 Forgetfulness 03/29/2022 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 Onychomycosis 03/29/2022 Primary osteoarthritis of both knees 03/29/2022 Assessment & Plan (12/07/2022 11:54 AM EDT): Continue taking acetaminophen PRN It was advise to follow up with PT and orthopedics Assessment & Plan (11/12/2022 12:02 PM EDT): Saw ortho at [facility], they recommended home PT Just started this once a week Increase Tylenol to 1000mg every 6 hours take as often as pain dictates Primary osteoarthritis of right shoulder 022 Traumatic rhabdomyolysis 03/29/2022 Urinary incontinence 03/29/2022 Vascular insufficiency 03/29/2022 At high risk for falls 03/29/2022 Essential hypertension 08/21/2014 Assessment & Plan (04/05/2024 12:28 PM EST): Stable c/w low Na diet and same medications Assessment & Plan (12/07/2022 11:53 AM EDT): - Aerobic exercise to reduce BP. Initial goal of 30 min walk 3-5x/week. Increase as tolerated. - low-sodium diet (goal: <2g/day) and heart healthy diet such as DASH to reduce BP and prevent ASCVD. - Home BP monitoring 1-2 x day with goal of <140/90. - Seek immediate medical attention for chest pain, palpitations, SOB, syncope, or sudden changes in mental status. - Do not change or discontinue current prescriptions without first consulting health care provider Assessment & Plan (09/14/2022 12:23 PM EDT): - Aerobic exercise to reduce BP. Initial goal of 30 min walk 3-5x/week. Increase as tolerated. - low-sodium diet (goal: <2g/day) and heart healthy diet such as DASH to reduce BP and prevent ASCVD. - Home BP monitoring 1-2 x day with goal of <140/90. - Seek immediate medical attention for chest pain, palpitations, SOB, syncope, or sudden changes in mental status. - Do not change or discontinue current prescriptions without first consulting health care provider Osteoarthritis 08/21/2014 Chronic obstructive lung disease 10/15/2011 Assessment & Plan (04/05/2024 12:30 PM EST): C/w same medication regimen I will prescribed for patient nebulizer machine with mask (patient does not know how to use tube) Assessment & Plan (12/07/2022 11:55 AM EDT): Patient reports his symptoms are control he has not had any recent exacerbation episode Patient reports new medication Trelegy is helping him C/w same medication regimen Patient educated to avoid triggers Assessment & Plan (11/12/2022 12:20 PM EDT): Patient with frequent exacerbations, dyspnea, dry cough Is on long acting ICS monotherapy, which per 2022 GOLD guidelines, is no longer recommended for monotherapy Suggest triple therapy (FCNE-HRDE-STT) with Trelegy as most beneficial in symptomatic patients Will place order, when approved, pt can stop Flovent Continue LEONCIO-JYOTI prn for now, Flovent daily for now Lozenges for throat dryness Assessment & Plan (09/14/2022 12:23 PM EDT): Continue with current medication regime I will prescribe for patient nebulizer Encounters Date Type Department Care Team Description 04/26/[address] [address] Ryane Brizuela MD Referral 04/12/[address] [address] Shena Harp MA DME NEB 04/09/[address] [address] Rayne Brizuela MD callback requested 04/09/[address] [address] Rayne Brizuela MD 04/05/2024 9:30 AM EST Office Visit [facility] [place] [address] Rayne Brizuela MD Dementia with other behavioral disturbance, unspecified dementia severity, unspecified dementia type (CMS/HCC) (Primary Dx); Chronic obstructive pulmonary disease, unspecified COPD type (CMS/HCC); Bedbound; Essential hypertension 04/05/2024 Telephone [facility] [place] [address] Shena Harp MA Durable Medical Equipment 04/05/2024 Travel 04/04/[address] [address] Shena Harp MA Chart Prep 03/29/2024 Telephone [facility] MEDICINE [address] [place] [address] Shena Harp MA Durable Medical Equipment 03/20/[address] [address] Rayne Brizuela MD telephone call 03/14/2024 Telephone [facility] MEDICINE [address] [place] [address] Rayne Brizuela MD Durable Medical Equipment 03/14/2024 Patient Outreach [facility] [address] [place] [address] Rayne Brizuela MD Pre-visit Planning (HDF scheduled, SDOH will need to be completed in office. ) 03/14/[address] [address] Rayne Brizuela MD Created In Error from Last 3 Months Immunizations Name Administration Dates Next Due Influenza injectable quadriv alent IIV4 with preservative 03/13/2015 Influenza injectable quadriv alent preservative free 03/03/2021 Influenza, High Dose Seasona l, Preservative Free 05/23/2019,12/28/2015 Influenza, IIV3, injectable 01/07/2011 Moderna Covid-19 Vaccine 12+ 08/21/2020,07/25/19 21 Pfizer Covid-19 Vaccine 12+ 11/10/2021, 1 Pfizer Covid-19 Vaccine 12+ arpan-sucrose (Noonan Cap) 11/10/2021 Pneumococcal Conjugate PCV 13 11/22/2018, 015 Pneumococcal Polysaccharide PPSV23 11/19/2008, Td (adult), 5 Lf tetanus tox oid, preservative free, adsorbed 10/03/2005 Tdap 10/08/2022, 9,11/16/2018,04/21 Social History Tobacco Use Types Packs/Day Years Used Date Smoking Tobacco: Never Passive Smoke Exposure: Never Smokeless Tobacco: Never Tobacco Cessation:Counseling Given: Not Answered Alcohol Use Standard Drinks/Week Comments Never 0 [...] Don't know 02/22/2022 10 :14 AM EDT Last Filed Vital Signs Vital Sign Reading Time Taken Comments Blood Pressure 140/67 04/05/2024 9:43 AM EST Pulse 65 04/05/2024 9:43 AM EST Temperature 36.1 ??C (97 ??F) 04/05/2024 9:43 AM EST Respiratory Rate 20 04/05/2024 9:43 AM EST Oxygen Saturation 98% 04/05/2024 9:43 AM EST Inhaled Oxygen Concentration - - Weight 80.3 kg (177 lb) 04/05/2024 9:43 AM EST Height 170.2 cm (5' 7 ) 04/05/2024 9:43 AM EST Body Mass Index 27.72 04/05/2024 9:43 AM EST Plan of Treatment Health Maintenance Due Date Last Done Comments Zoster Vaccines (1 of 2) 1990 RSV Patients and Patients Aged 60 years or older (1 - 1-dose 75+ series) 2015 Depression Screening 09/15/2023 09/14/2022, 09/15/19 SDOH Screening 09/15/2023 09/14/2022 COVID-19 Vaccine ( season) 2023 11/10/2021, 11/10/2021, 03/03/2021, Additional history exists Influenza Vaccine (#1) 2023 , 05/23/2019, 12/28/2015, Additional history exists Alcohol/Substance Use Screening 04/05/2025 04/05/2024 Tobacco Screening 04/05/2025 04/05/2024 Lipid Panel 03/09/2027 03/09/2022, 10/23, 10/15/2020 DTaP/Tdap/Td Vaccines (5 - Td or Tdap) 10/08/2032 10/08/2022, 11/22/2018, 11/16/2018, Additional history exists Pneumococcal Vaccine: 65+ Years Completed 11/22/2018, 03/13/2015, 11/19/2008, Additional history exists HIB Vaccines Aged Out No longer eligi ble based on patient's age to complete this topic HPV Vaccines Aged Out No longer eligi ble based on patient's age to complete this topic Hepatitis A Vaccines Aged Out No long er eligible based on patient's age to complete this topic Hepatitis B Vaccines Aged Out No long er eligible based on patient's age to complete this topic IPV Vaccines Aged Out No longer eligi ble based on patient's age to complete this topic Meningococcal Vaccine Aged Out No sylwia anthony eligible based on patient's age to complete this topic RSV under 20 months Aged Out No longe r eligible based on patient's age to complete this topic Rotavirus Vaccines Aged Out No longer eligible based on patient's age to complete this topic Procedures Procedure Name Priority Date/Time Associated Diagnosis Comments LIPID PANEL, STANDARD Routine 11/10/2021 9:45 AM EDT from Last 3 Months or Most Recently Relevant to Health Maintenance Results * LIPID PANEL, STANDARD (11/10/2021 9:45 AM EDT) Chol/HDLC Ratio 2.5 <5.0 (calc) [facility] Cholesterol, Total 133 <200 mg/dL [facility] HDL Cholesterol 54 > OR = 40 mg/dL [facility] LDL Cholesterol 59 mg/dL (calc) [facility] Comment: Reference range: <100 ?? Desirable range <100 mg/dL for primary prevention; ?? <70 mg/dL for patients with CHD or diabetic patients ?? with > or = 2 CHD risk factors. ?? LDL-C is now calculated using the José Miguel ?? calculation, which is a validated novel method providing ?? better accuracy than the Friedewald equation in the ?? estimation of LDL-C. ?? John CRISTOBAL et al. RAJAT. 2013;310(19): 3477-4639 ?? (http://education.ArmorText/faq/ZMH236) Non-HDL Cholesterol 79 <130 mg/dL (calc) [facility] Comment: For patients with diabetes plus 1 major ASCVD risk ?? factor, treating to a non-HDL-C goal of <100 mg/dL ?? (LDL-C of <70 mg/dL) is considered a therapeutic ?? option. Triglycerides 116 <150 mg/dL [facility] 11/10/2021 9:45 AM EDT Rayne Og MD LAB BLOOD ORDERABLES Final Result Performing Organization Address City/State/[facility] Co de Phone Number [facility] [address] from Last 3 Months or Most Recently Relevant to Health Maintenance [place] [address] [place] [address] - [employer] Advance Directives Documents on File Type Date Recorded Patient Water Trainer Expl anation Advance Directives and Livin g Will 10/19/2022 HEALTH CARE PROXY Power of Isolation Washer 03/20/2024 Care Teams Commercial Credit Reviewer Relationship Specialty Start Date End Date Rayne Brizuela MD [address] [place] [id number] PCP - General Family Medicine 05/23/19 [facility] 03/18/24
--- OUTSIDE RECORDS SUMMARY | 2024-05-16 06:08 | XMS_ITS | Encounter Summary ---
Author Organization [employer] Address [address] [place] [address] Care Team Providers Care House Visitor Name Role Phone Rayne Brizuela MD Primary Care Provide r Reason for Visit * Reason Onset Date Comments FYI 05/26/2023 Encounter Details Date Type Department Care Team ([facility] st Contact Info) Description 05/26/2023 Telephone [facility] MEDICINE [address] [place] [address] Rayne Brizuela MD [address] [place] [address] FYI Social History Tobacco Use Types Packs/Day Years [...] * Telephone Encounter - Tom Burgess - 05/26/2023 2:09 PM EST Tc jacobo Mclain from [facility] calling to inform the PCP the patient was found on the floor on 05/25 completely soiled and was not able to get up and is going to be filed for self neglect patient family is trying to enroll the patient in a fdc but patient refuses documented in this encounter Plan of Treatment Not on file documented as of this encounter Visit Diagnoses Not on filedocumented in this encounter Additional Health Concerns Assessment Noted Time PHQ-9 Depression Total Score: 0 09/15/19 23 11:34 AM EDT documented as of this encounter Care Teams House Visitor Relationship Specialty Start Date End Date Rayne Brizuela MD [address] [place] [id number] PCP - General Family Medicine 05/23/19 [facility] 03/18/24 documented as of this encounter
--- OUTSIDE RECORDS SUMMARY | 2024-05-16 06:08 | XMS_ITS | Encounter Summary ---
Author Organization [employer] [facility] Address [address] [facility] 7t [place] [address] Care Team Providers Care Copying Machine Mechanic Name Role Phone Rayne Brizuela MD Primary Care Provide r Encounter Details Date Type Department Care Team (Late st Contact Info) Description 03/29/2022 Abstract [facility] [address] [place] [address] Provider, MD Cece Social History Tobacco Use Types Packs/Day Years [...] on filedocumented in this encounter Care Teams Copying Machine Mechanic Relationship Specialty Start Date End Date Rayne Brizuela MD [address] [place] [address] PCP - General Family Medicine 05/23/19 [facility] 03/18/24 documented as of this encounter
--- OUTSIDE RECORDS SUMMARY | 2024-05-16 06:08 | XMS_ITS | Encounter Summary ---
Author Organization [employer] [facility] Address [address] [facility] [address]t [place] [address] Care Team Providers Care Balance Bridge Assembler Name Role Phone Rayne Brizuela MD Primary Care Provide r Encounter Details Date Type Department Care Team (Late st Contact Info) Description 05/17/2022 Orders Only [facility] MEDICINE [address] [place] [address] Ciarra Evangelista, PharmD [address] [place] [address] Primary osteoarthritis of both knees Social History Tobacco Use Types Packs/Day Years [...] as of this encounter Visit Diagnoses Diagnosis Primary osteoarthritis of both knees documented in this encounter Care Teams Balance Bridge Assembler Relationship Specialty Start Date End Date Rayne Brizuela MD [address] [place] [address] PCP - General Family Medicine 05/23/19 [facility] 03/18/24 documented as of this encounter
--- OUTSIDE RECORDS SUMMARY | 2024-05-16 06:08 | XMS_ITS | Encounter Summary ---
Author Organization [employer] Address [address] [facility] [address] [place] [address] Care Team Providers Care Security Installation Technician Name Role Phone Rayne Brizuela MD Primary Care Provide r Reason for Visit * Reason Onset Date Comments Durable Medical Equipment 04/22/2023 Multip le DME Encounter Details Date Type Department Care Team ([facility] st Contact Info) Description 04/22/2023 Telephone [facility] MEDICINE [address] [place] [address] Rayne Brizuela MD [address] [place] [address] Durable Medical Equipment (Multiple DME) Social History Tobacco Use Types Packs/Day Years [...] encounter Miscellaneous Notes * Telephone Encounter - Sadie Pratt - 04/27/2023 4:37 PM EST Orders for DME have been generated and placed on provider desk for review and signature. * Telephone Encounter - Taniya Butler - 04/22/2023 9:42 AM EST Tc from [place] with [facility] requesting a large left knee brace, Non-slip bath mat, Handheld showerhead, and 2 portable urinals to be faxed to [phone] documented in this encounter Plan of Treatment Not on file documented as of this encounter Visit Diagnoses Not on filedocumented in this encounter Additional Health Concerns Assessment Noted Time PHQ-9 Depression Total Score: 0 09/15/19 23 11:34 AM EDT documented as of this encounter Care Teams Security Installation Technician Relationship Specialty Start Date End Date Rayne Brizuela MD [address] [place] [id number] PCP - General Family Medicine 05/23/19 Jeana REY 03/18/24 documented as of this encounter
--- OUTSIDE RECORDS SUMMARY | 2024-05-16 06:08 | XMS_ITS | Encounter Summary ---
Author Organization [employer] Address [address] [facility] [address] [address] [place] [address] Care Team Providers Care Bread Wrapper Name Role Phone Rayne Brizuela MD Primary Care Provide r Encounter Details Date Type Department Care Team ([facility] st Contact Info) Description 04/09/2024 Telephone [facility] MEDICINE [address] [place] [address] Rayne Brizuela MD [address] [place] [address] Social History Tobacco Use Types Packs/Day Years [...] documented as of this encounter Care Teams Bread Wrapper Relationship Specialty Start Date End Date Rayne Brizuela MD [address] [place] [id number] PCP - General Family Medicine 05/23/19 [facility] 03/18/24 documented as of this encounter
--- OUTSIDE RECORDS SUMMARY | 2024-05-16 06:08 | XMS_ITS | Encounter Summary ---
Author Organization [employer] [facility] Address [address] [facility] [address] [address] [place] [address] Care Team Providers Care Process Control Tech Name Role Phone Rayne Brizuela MD Primary Care Provide r Reason for Visit * Reason Onset Date Comments Created In Error 03/14/2024 Encounter Details Date Type Department Care Team ([facility] Contact Info) Description 03/14/2024 Telephone [facility] MEDICINE [address] [place] [address] Rayne Brizuela MD [address] [place] [address] Created In Error Social History Tobacco Use Types Packs/Day Years [...] documented as of this encounter Care Teams Process Control Tech Relationship Specialty Start Date End Date Rayne Brizuela MD [address] [place] [id number] PCP - General Family Medicine 05/23/19 [facility] 03/18/24 documented as of this encounter
--- OUTSIDE RECORDS SUMMARY | 2024-05-16 06:08 | XMS_ITS | Encounter Summary ---
Author Organization [employer] [facility] Address [address] [facility] [address] [place] [address] Care Team Providers Care Grain Combiner Name Role Phone Rayne Brizuela MD Primary Care Provide r Reason for Visit * Reason Comments Med Refill Encounter Details Date Type Department Care Team ([facility] st Contact Info) Description 12/21/2022 Refill [facility] MEDICINE [address] [place] [address] Rayne Brizuela MD [address] [place] [address] Social History Tobacco Use Types Packs/Day Years Used Date Smoking Tobacco: Never Smokeless Tobacco: Never Alcohol Use Standard Drinks/Week Comments Never 0 (1 standard drink = 0.6 oz pur e alcohol) Depression Answer Date Recorded Patient Health Questionnaire-9 Score 0 09/14/2022 Depression Answer Date Recorded Patient Health Questionnaire-2 [...] documented as of this encounter Care Teams Grain Combiner Relationship Specialty Start Date End Date Rayne Brizeula MD [address] [place] [address] PCP - General Family Medicine 05/23/19 Jeana REY 03/18/24 documented as of this encounter
--- OUTSIDE RECORDS SUMMARY | 2024-05-16 06:08 | XMS_ITS | Encounter Summary ---
Author Organization [employer] Address [address] [facility] [address] [place] [address] Care Team Providers Care Maintenance Mechanic Telephone Name Role Phone Rayne Brizuela MD Primary Care Provide r Reason for Visit * Reason Onset Date Comments FYI 03/15/2023 Encounter Details Date Type Department Care Team ([facility] Contact Info) Description 03/15/2023 Telephone [facility] MEDICINE [address] [place] [address] Rayne Brizuela MD [address] [place] [address] FYI Social History Tobacco Use Types Packs/Day [...] encounter Miscellaneous Notes * Telephone Encounter - Sidney Armijo - 03/15/2023 4:04 PM EST Tc from [facility] leaving an FYI for provider to inform that She went over to pt home twice and pt did not open door. documented in this encounter Plan of Treatment Not on file documented as of this encounter Visit Diagnoses Not on filedocumented in this encounter Additional Health Concerns Assessment Noted Time PHQ-9 Depression Total Score: 0 09/15/19 23 11:34 AM EDT documented as of this encounter Care Teams Maintenance Mechanic Telephone Relationship Specialty Start Date End Date Rayne Brizuela MD [address] [place] [address] PCP - General Family Medicine 05/23/19 [facility] 03/18/24 documented as of this encounter
--- OUTSIDE RECORDS SUMMARY | 2024-05-16 06:08 | XMS_ITS | Encounter Summary ---
Author Organization [employer] Address [address] [facility] [address] [place] [address] Care Team Providers Care Felled Seam Operator Chainstitch Name Role Phone Rayne Brizuela MD Primary Care Provide r Reason for Visit * Reason Onset Date Comments callback requested 04/09/2024 Encounter Details Date Type Department Care Team ([facility] Contact Info) Description 04/09/2024 Telephone [facility] MEDICINE [address] [place] [address] Rayne Brizuela MD [address] [place] [address] callback requested Social History Tobacco Use Types Packs/Day Years [...] * Telephone Encounter - Emre Franklin - 04/09/2024 11:01 AM EST Tc from [place] with [employer] calling in regards pt nebulizer , as he has several questions and will like a nurse or provider to return the call. Callback [phone] documented in this encounter Plan of Treatment Not on file documented as of this encounter Visit Diagnoses Not on filedocumented in this encounter Additional Health Concerns Assessment Noted Time PHQ-9 Depression Total Score: 0 09/15/19 23 11:34 AM EDT documented as of this encounter Care Teams Felled Seam Operator Chainstitch Relationship Specialty Start Date End Date Rayne Brizuela MD [address] [place] [id number] PCP - General Family Medicine 05/23/19 [facility] 03/18/24 documented as of this encounter
--- OUTSIDE RECORDS SUMMARY | 2024-05-16 06:08 | XMS_ITS | Encounter Summary ---
Author Organization [employer] [facility] Address [address] [facility] 7[address] [place] [address] Care Team Providers Care Senior Care Assistant Name Role Phone Rayne Brizuela MD Primary Care Provide r Encounter Details Date Type Department Care Team (Late st Contact Info) Description 06/24/2022 Abstract [facility] MEDICINE [address] [place] [address] Rayne Brizuela MD [address] [place] [address] Social History Tobacco Use Types Packs/Day Years [...] on filedocumented in this encounter Care Teams Senior Care Assistant Relationship Specialty Start Date End Date Rayne Brizuela MD [address] [place], [place] [phone] PCP - General Family Medicine 05/23/19 [facility] 03/18/24 documented as of this encounter
--- OUTSIDE RECORDS SUMMARY | 2024-05-16 06:08 | XMS_ITS | Encounter Summary ---
Author Organization [employer] [facility] Address [address] [facility] [address] [place] [address] Care Team Providers Care Director Nurses' Registry Name Role Phone Rayne Brizuela MD Primary Care Provide r Encounter Details Date Type Department Care Team (Late st Contact Info) Description 05/11/2022 Refill [facility] MEDICINE [address] [place] [address] Rayne Brizuela MD [address] [place] [address] Primary osteoarthritis, unspecified site (Primary Dx) Social History Tobacco Use Types [...] of this encounter Visit Diagnoses Diagnosis Primary osteoarthritis, unspecified site- Primary documented in this encounter Care Teams Director Nurses' Registry Relationship Specialty Start Date End Date Rayne Brizuela MD [address] [place], [place] [phone] PCP - General Family Medicine 05/23/19 [facility] 03/18/24 documented as of this encounter
--- OUTSIDE RECORDS SUMMARY | 2024-05-16 06:09 | XMS_ITS | Data Portability ---
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 disease 53198365 J41.1 maintained ontrelegy ellipta 100-62.5-2 5 qdsingulai r 10 mg qdcombiven t prnalbuter ol prnmonitor respirator y status and utilizatio n of prn albuterol [id number] [facility] [address] 10/25/2023 10:28:18 11/03/2023 10:17:24 Mild neurocognitive disorder 734284416 G31.84 Scored poorly on BIMSHCP invokedNot on meds at this timeMonito r mood, behaviorsP sych eval prn Hypertensive disorder 38 666798 I10 VSSContinu e:norvasc 5 mg qdHCTZ 12.5 mg qdmonitor VS, labs, adjust tx. prn Chronic ob structive pulmonary disease 65497855 J41.1 Stable at presentCon tinue:trel egy ellipta 100-62.5-2 5 qdsingulai r 10 mg qdcombiven t prnalbuter ol prnmonitor respirator y status and utilizatio n of prn albuterol Hyperlipidemia 23163708 E78.2 Continue atorvastat in 20 mg qdLFTs WNRCheck lipid panel x 1 as now LTC Recurrent falls 47993074 2 R29.6 unwittness ed fall in room on 10/23 - found on knees beside bed.VSSNeu ros stableNo injury reportedPT OT eval and tx.Poor safety awarenessM onitor Health Concerns Section Related Observation LastModified by Organization Detai ls LastModified Time None Recorded Concern Status LastModified by Organization Details LastModified Time None Recorded Advance Directives Directive None Recorded Payers Encounter Date Sequence Insurance Name Policy Number Policy Fernandes Covered Member ID Fernandes Member ID Guarantor Name 08/17/2023 1 [facility] - DOS ON OR AFTER 2022 - [place]IC[place]ADV ANTAGE - PPO) Luan Son [id number] Luan Son 08/22/2023 1 [facility] - DOS ON OR AFTER 2022 - [place]V ANTAGE - PPO) Luan Son [id number] Luan Son 09/16/2023 1 [facility] - DOS ON OR AFTER 2022 - [place]V ANTAGE - PPO) Luan Son [id number] Luan Son 10/05/2023 1 [facility] - DOS ON OR AFTER 2022 - [place]V ANTAGE - [place]PO) Luan Son [id number] Luan Son 10/25/2023 1 [facility] - DOS ON OR AFTER 2022 - [place] RE[place]/ADV ANTAGE - PPO) Luan Son [id number] Luan oSn Notes Date Note Type Note Provider Name and Address Organization Details Recorded Time 08/17/2023 text/html Luan is seen today for an acute visit. PMH: asthma, COPD, prostate CA, HTN, HLD, mild cognitive d/o, OA knees Luan is seen sp fall with ER visit 08/15 with head injury abd was returned to facility that evening. He sustained 4 sutures to his righ eyebrow due to come out in [address] scan was done without acute changes, however showed hematoma to scalp. Luan is seen in his room in [facility]. He requests coffee and denies any pain. MOLST: DNIHCP invoked at [facility] Karla Gamble NP [address], [address], [place], [address], [facility] 08/17/2023 17:14:08 08/22/2023 text/html Luan is seen today for an acute visit. PMH: asthma, COPD, prostate CA, HTN, HLD, mild cognitive d/o, OA knees Luan is seen for suture removal today. All 4 sutures removed, patient was calm and cooperative without any difficulty. Suture line cleaned with ns and guaze to remove old blood. Laceration well healed. Note: On 08/15 he was seen ER visit sp fall with head injury abd was returned to facility that evening. He sustained 4 sutures to his righ eyebrow due to come out in [address] scan was done without acute changes, however showed hematoma to scalp. MOLST: DNIHCP invoked at [facility] Karla Gamble NP [address], [address], [place], [address], [email or web address] 08/22/2023 14:14:24 09/16/2023 text/html Luan is seen today for an acute visit. PMH: asthma, COPD, prostate CA, HTN, HLD, dementia, OA knees He is seen today in his room for concern of choking. On exam, his breakfast tray is on the floor and spilled everywhere and he has a cough. He was able to clear the food/drink after gulping food/drink on his own with cough. His vitals are stable and he denies anything feeling stuck or difficulty breathing. Cough resolved. Vitals stable. Lungs clear. He remains confused at baseline. A automotive parts interpreter is used for visit. He seems at baseline here and will watch him for s/s of asp pneumonia. No chest xray or abx needed at this time. of note: He is an 83 yo male admit from hospital who presented to [facility] after recurrent falls with fall resulting in nasal fracture and facial laceration and confusion. Required IVF for elevated renal function.Not felt safe to return home at that time and transitioned to LTC. MOLST: DNIHCP invoked at [facility] Karla Gamble NP [address], [address], [place], [address], [email or web address] 09/16/2023 10:23:45 10/05/2023 text/html Patient is an 83 yo male LTC resident due for routine rounding MD visit. Patient currently stable at baseline per staff, sitting in wheelchair in NAD. Of note covid now on unit, patient without sx with test pending iDckson Harrell MD [address], [address], [place], [address], [email or web address] 10/05/2023 12:33:28 10/25/2023 text/html Luan is seen today for a routine, 90 day visit. He is an 83 yo LTC resident, PMH includes asthma, COPD, prostate CA, HTN, HLD, dementia, OA knees. Since his last routine visit, his interval has been uneventful ecept for a fall yesterday - found on the floor in his room on his knees, leaning on his bed. No injury reported, VS and neuros stable. VSS on current meds.Remains on statin for HLD.COPD stable on trelegy inhaler and singulair. No recent labsCase discussed with staff, no new issues or concerns except for recent fall. Upon exam, Luan is up in his w/c, rolling around the halls. Alert, NAD, baseline confused. Denies pain, says he is good estrella . MOLST: DNIHCP invoked at [facility] MIGUEL STEWART NP [address], [address], [place], [address], [facility] [employer] [facility] 10/25/2023 10:42:54
--- OUTSIDE RECORDS SUMMARY | 2024-05-16 06:09 | XMS_ITS | Data Portability ---
Author Organization [employer] Address [address] [place] [address] Care Team Providers Care Rickshaw Driver Name Role Phone [facility] Referring Provider [facility] Referring Provider Assessment Encounter Date Assessment Date Assessment LastModified by Organization Details LastModified Time 10/15/2022 10/15/2022 I have reviewed and agree with the assessment and plan as documented by the internetworking technician. I provided real-time medical direction for this encounter and was immediately available to provide additional phone-based assistance as needed. 82M with history of asthma presents with 4 days of cough, congestion. Pt uses nebulizer daily, last dose this morning. No fever, no shortness of breath. As per caregiver, pt appears close to baseline today. Vitals no fever, 100% RA. Lung sounds reveal mild wheezing. Given patient has been using nebulizer regularly, and still experiencing mild wheezing/cough, suspect mild COPD exacerbation, will recommend prednisone x 5 days. Advised to continue using nebs/regular medication. Supportive care, fluids recommended Red flags and return precautions discussed. [email or web address] Not available 10/15/2022 11:14:50 Plan of Treatment Reminders Order Date Submit Date Provider Last Modified By Organization Details Last Modified Time Details Appointments None recorded. Lab None recorded. Referral None recorded. Procedures None recorded. Surgeries None recorded. Imaging None recorded. Medication Orders prednisone 20 mg tablet [address] [facility], [address], [place], [id number], 11:21:28 Patient TargetsNo targets recorded. Patient InstructionsNo instructions recorded. Reason for Referral None Reported. Medical Equipment None Reported. Medications Name Sig Start Date Stop Date Status Note LastModified by Organization Details LastModified Time blood pressure monitor [id number] USE DIRECTED EVERY DAY active Not Available Not Available No t Available medbox status USE DIRECTED active Not Available Not Available No t Available quetiapine 25 mg tablet TAKE 1/2 TO 1 TABLET BY MOUTH TWICE DAILY NEEDED AGITATION and TAKE 1 TABLET BY MOUTH AT BEDTIME active Not Available Not Available No t Available atorvastatin 20 mg tablet TAKE 1 TABLET BY MOUTH EVERY EVENING active Not Available Not Available No t Available albuterol sulfate 2.5 mg/3 mL (0.083 %) solution for nebulization INHALE 1 AMPULE USING A NEBULIZER EVERY 4 HOURS NEEDED FOR WHEEZING OR SHORTNESS OF BREATH active Not Available Not Available No t Available prednisone 20 mg tablet TAKE 3 TABLETS BY MOUTH EVERY DAY FOR FOUR DAYS active Not Available Not Available No t Available amlodipine 5 mg tablet TAKE 1 TABLET BY MOUTH EVERY MORNING active Not Available Not Available No t Available aspirin 81 mg tablet,delaye d release TAKE 1 TABLET BY MOUTH EVERY MORNING active Not Available Not Available No t Available triamcinolone acetonide 0.1 % topical cream APPLY A THIN LAYER TO AFFECTED AREA(S) TWICE DAILY active Not Available Not Available No t Available acetaminophen ER 650 mg tablet,extend ed release TAKE 2 TABLETS BY MOUTH EVERY 8 HOURS NEEDED. SWALLOW WHOLE WITH WATER. DO NOT BREAK, CRUSH, DISSOLVE OR CHEW active Not Available Not Available No t Available montelukast 10 mg tablet TAKE 1 TABLET BY MOUTH EVERY EVENING active Not Available Not Available No t Available Ventolin HFA 90 mcg/actuation aerosol inhaler INHALE 2 PUFFS BY MOUTH EVERY 4 TO 6 HOURS NEEDED active Not Available Not Available No t Available Vitamin D3 25 mcg (1,000 unit) capsule TAKE 1 CAPSULE BY MOUTH EVERY MORNING active Not Available Not Available No t Available Flovent HFA 220 mcg/actuation aerosol inhaler INHALE 1 PUFF BY MOUTH TWICE DAILY IN THE MORNING AND AT BEDTIME. RINSE MOUTH AFTER USING. active Not Available Not Available No t Available hydrochloroth iazide 12.5 mg tablet TAKE 1 TABLET BY MOUTH EVERY MORNING active Not Available Not Available No t Available diclofenac 1 % topical gel APPLY 4 GRAMS TOPICALLY TO AFFECTED AREA(S) TWICE DAILY active Not Available Not Available No t Available melatonin 5 mg tablet TAKE 1 TABLET BY MOUTH AT BEDTIME active Not Available Not Available No t Available Combivent Respimat 20 mcg-100 mcg/actuation solution for inhalation INHALE 1 PUFF BY MOUTH FOUR TIMES DAILY active Not Available Not Available No t Available Vitals Date Recorded Respiratory rate Oxygen saturation Oxygen saturation in Arterial blood by Pulse oximetry Body height Heart rate Body weight Body temperature Systolic blood pressure Diastolic blood pressure Provider Name and Address Organization Details Last Updated DateTime 3 16 /min 100 % 100 % 170.18 cm 62 /min 47330.4 8 g 98 [degF] 140 mm[Hg] 57 mm[Hg] Not Available [facility] - production 3 11:08:59 Social History None recorded. Functional Status None recorded. Mental Status None recorded. Family History Nothing Reported. Medical History No medical history recorded. Past Encounters Encounter ID Performer Location Encounter Start Date Encounter Closed Date Diagnosis/Indication Diagnosis SNOMED-CT Code Diagnosis ICD10 Code Diagnosis Note [id number] Ricarda Lion MD [facility] [address] [place] [address] 10/15/2022 11:08:57 10/16/2022 12:26:26 Chronic obstructive pulmonary disease 31467341 J44.9 Health Concerns Section Related Observation LastModified by Organization Detai ls LastModified Time None Recorded Concern Status LastModified by Organization Details LastModified Time None Recorded Advance Directives Directive None Recorded Payers Encounter Date Sequence Insurance Name Policy Number Policy Fernandes Covered Member ID Fernandes Member ID Guarantor Name 10/15/2022 1 [facility] - DOS ON OR AFTER 2022 - DUAL ELIGIBLE - [employer] (MEDICARE REPLACEMENT/ADV ANTAGE - HMO) uLan Son [id number] Luan Son Notes Date Note Type Note Provider Name and Address Organization Details Recorded Time 10/15/2022 text/html HPI: Call to Luan Son, pt handed phone to [facility]. Pt developed cough on Tuesday. Per MECHANICAL ENGINEERING INTERN cough is productive with white sputum. Pt having some chest pain/tightness with cough. Pt uses albuterol every day. Denies any fever, ST or ear pain. Also having nasal congestion. Pt alert and oriented when confirmed name, and location. Pt declined our [facility]. Agrees to [facility] referral for exam. ................. ................. ................. ................. ................. ................. ................. ................. ..... CRC Nursing Assessment: Comments: CRC RN DID NOT NEED FURTHER INFO DELON Lion MD [address] [place] [address],[address] [facility], [place], [address], [facility] 10/15/2022 11:15:07
[2024-05-16 06:17] LABS: Alanine Aminotransferase 10 U/L (0-40); Albumin Level 3.5 g/dL (3.5-5.0); Alkaline Phosphatase 135 U/L (39-117); Anion Gap 8 (12-20); Aspartate Amino Transferase 21 U/L (5-37); Bilirubin Direct 0.3 mg/dL (0.0-0.5); Bilirubin Total 0.6 mg/dL (0.0-1.0); Blood Urea Nitrogen 11 mg/dL (9-16); Calcium 9.4 mg/dL (8.4-10.2); Carbon Dioxide 27 mmol/L (22-29); Chloride 107 mmol/L (96-108); Creatinine Clr Calc Pharmacy 72.3; Estimated Glomerular Filt Rate > 60; Ethanol < 10 mg/dL; Glucose Random 110 mg/dL (60-115); Magnesium 1.9 mg/dL (1.6-2.6); Sodium 138 mmol/L (135-145); Total Protein 7.7 g/dL (6.5-8.0)
[2024-05-16 06:20] LABS: Troponin-I High Sensitivity 8.4 ng/L (<3.5-35.0)
[2024-05-16 06:35] LABS: Influenza A PCR NEGATIVE (Negative); Influenza B PCR NEGATIVE (Negative); Resp Syncy Virus RNA Qual PCR NEGATIVE (Negative); SARS COV2 PCR INHOUSE NEGATIVE (Negative)
[2024-05-16 08:03] VITALS: BP 123/63; PULSE 70; RESP 16; TEMP 36.4; O2SAT 98
--- NOTE | 2024-05-16 09:41 | MHC.CM.ED ---
Received case management consult from Dr Lopez. Patient was inpatient at [facility] [place]22-[place]. At that time, LTC was trying to be found and insurance was trying to be changed to [facility]. Patient is a registered sex offender and patient sold his condo to his daughter 2 years ago. LTC was not able to be secured because of these 2 things. Patient was d/c'd home to daughter Rayne. Patient returned to ER today due to fall. Work up essentially negative. Dr Lopez has not been able to contact daughter, Rayne. T/W spoke with Rayne, via telephone at [phone]. Rayne states it has been difficult caring for patient because he doesn't sleep at night and tries to get up. Rayne hoping SNF placement can be found. T/W reminded Rayne that placement was not able to be found last time due to being a registered sex offender and the sale of the condo being less than 5 years ago. Rayne verbalizes understanding but has to work today. Patient's day time PRICING DIRECTOR is not available today. Patient can d/c home at 4pm. Elliott PALACIO booked. Patient, Bobbi Mclain RN and Dr Lopez aware. Continue to monitor for d/c needs.
[2024-05-16 14:37] VITALS: BP 134/61; PULSE 94; RESP 18; O2SAT 96
[2024-05-16 16:21] VITALS: BP 134/61; PULSE 94; RESP 18; TEMP 37.1; O2SAT 96
== END 2024-05-16 16:22 | disposition home or self-care (01) ==
PROVIDERS: Emergency Provider Emergency Medicine; PCP Internal Medicine
DX: S09.90XA Unspecified injury of head, initial encounter (principal); S79.912A Unspecified injury of left hip, initial encounter; F03.90 Unspecified dementia, unspecified severity, without behavioral disturbance, psychotic disturbance, mood disturbance, and anxiety; R94.31 Abnormal electrocardiogram [ECG] [EKG]; R06.02 Shortness of breath; R51.9 Headache, unspecified; M54.2 Cervicalgia; W06.XXXA Fall from bed, initial encounter; Y93.9 Activity, unspecified; Y92.9 Unspecified place or not applicable; Y99.8 Other external cause status; Z03.818 Encounter for observation for suspected exposure to other biological agents ruled out; Z79.899 Other long term (current) drug therapy; Z51.81 Encounter for therapeutic drug level monitoring
CPT/HCPCS: 0241U; 70450; 72125; 73502; 73560; 80048; 80076; 80307; 83735; 84484; 85025; 86140; 93005; 99284; 99285

== ENCOUNTER → 2024-05-16 05:27 | Outpatient (BNV) | payer OTHER, SELFPAY | PROVIDERS: Emergency Provider Emergency Medicine; Visit Provider Internal Medicine Cardiovascular Disease | DX: R94.31 Abnormal electrocardiogram [ECG] [EKG] (principal); R06.02 Shortness of breath | CPT/HCPCS: 93010 ==

== ENCOUNTER → 2024-05-16 05:30 | Outpatient (BNV) | payer OTHER, SELFPAY | PROVIDERS: Emergency Provider Emergency Medicine; Visit Provider Radiology Diagnostic Radiology | DX: M43.12 Spondylolisthesis, cervical region (principal); M50.30 Other cervical disc degeneration, unspecified cervical region; S09.90XA Unspecified injury of head, initial encounter; M16.12 Unilateral primary osteoarthritis, left hip; M17.12 Unilateral primary osteoarthritis, left knee | CPT/HCPCS: 70450; 72125; 73502; 73560 ==